=== PATIENT | male | born 1950 | race Caucasian/White ===

== ENCOUNTER → 2020-03-21 09:56 | Outpatient (BNVA) | payer MEDICARE, SELFPAY | PROVIDERS: Referring Provider Nurse Practitioner Family; Visit Provider Physician Assistant | DX: R14.0 Abdominal distension (gaseous) (principal) | CPT/HCPCS: 99203 ==

== ENCOUNTER 2020-04-02 16:55 | Inpatient (IN) | payer MEDICARE, SELFPAY ==
--- NOTE | 2020-04-02 17:26 | ECG_ITS ---
Test Reason : CRISIS Blood Pressure : / mmHG Vent. Rate : 084 BPM Atrial Rate : 084 BPM P-R Int : 158 ms QRS Dur : 102 ms QT Int : 354 ms P-R-T Axes : 021 -49 008 degrees QTc Int : 418 ms Normal sinus rhythm Incomplete right bundle branch block Left anterior fascicular block Minimal voltage criteria for LVH, may be normal variant Abnormal ECG When compared with ECG of 19-OCT-2019 16:10, No significant changes seen Referred By: Constantin Landers Electronically Signed By:DANIELLE BANUELOS MD
[2020-04-02 17:43] VITALS: BP 127/88; PULSE 69; RESP 18; TEMP 36.3; O2SAT 97; BMI 27.0
[2020-04-02 18:25] VITALS: BP 127/88; PULSE 69; RESP 18; TEMP 36.3; O2SAT 97
--- NOTE | 2020-04-02 18:36 | ED_ITS ---
HPI - Psych General Chief Complaint: Psychiatric Symptoms Stated Complaint: section 12 Time Seen by Provider: 04/02/20 17:26 Source: EMS Mode of arrival: EMS Limitations: no limitations History of Present Illness HPI Narrative: 69-year-old male with history of arthritis presenting via EMS from home where family had call patient for expressing suicidal/homicidal ideations where PD was called and patient was sectioned to the emergency room. He openly admits to having thoughts of suicidal and homicidal ideation. States he wants to commit murder suicide because his sister is very ?annoying? complaint: suicidal ideation and feels depressed Onset (ago): day(s) Duration: constant History of same: Yes Relieving factors: none Associated psychiatric symptoms: suicidal ideation and homicidal ideation Associated symptoms: denies other symptoms Treatments prior to arrival: none Related Data Previous Rx's Medication Instructions Recorded bisacodyl 5 mg tablet,delayed 5 mg PO ONCE #4 tab 03/21/20 release simethicone 125 mg chewable tablet 125 mg PO TID-QID PRN #90 tab 03/21/20 Allergies Allergy/AdvReac Type Severity Reaction Status Date / Time No Known Allergies Allergy Verified 04/02/20 20:21 [No Known Allergies*] Review of Systems Review of Systems: Constitutional: No Weight loss, No Fever, No Chills, No Night Sweats, No Fatigue, No Malaise ENT/Mouth: No Hearing loss, No Ear Pain, No Nasal Congestion, No Sinus Pain, No Hoarseness, No sore throat, No Rhinorrhea, No Swallowing Difficulty Eyes: No Eye Pain, No Swelling, No Redness, No Foreign Body, No Discharge, No Vision Changes Cardiovascular: No Chest Pain, No SOB, No Dyspnea on Exertion, No Orthopnea, No Edema, No Palpitations Respiratory: No Cough, No Sputum, No Wheezing, No Smoke Exposure, No Dyspnea Gastrointestinal: No Nausea, No Vomiting, No Diarrhea, No Constipation, No abdominal Pain, No Hematochezia, No Melena Genitourinary: No Dysuria, No Urinary Frequency, No Hematuria, No Urinary Incontinence, No Urgency, No Flank Pain, No Urinary Flow Changes, No Hesitancy Musculoskeletal: No joint pain, No Myalgias, No Joint Swelling Skin: No Skin Lesions, No rash Neuro: No Weakness, No Numbness, No Paresthesias, No Loss of Consciousness, No Dizziness, No Headache Psych: No Anxiety/Panic, No Depression, No SI/HI/AH/VH, No Social Issues, Heme/Lymph: No Bruising, No Bleeding,No Lymphadenopathy Endocrine: No Polyuria, No Polydipsia, No Temperature Intolerance Yes all other systems are reviewed and are negative [facility] Past Medical History Attestation statement: The following information was validated with the patient. Surgical History History of amputation of finger of right hand Family History Family History Mother Heart disease Father Hx of colostomy Social History Social History Alcohol intake: former Smoking Status: Former smoker Smoked in Last 30 Days: No Use of substances other than those prescribed or required for medical reasons: No Any prior treatment program specific to substance use: No Advance Directives: No Advance Directives Information Provided: No Physical Exam Vital Signs: Vital Signs: Vital Signs Temp Pulse Resp BP Pulse Ox 04/02/20 20:00 18 04/02/20 18:25 97.3 F 69 18 127/88 97 04/02/20 17:43 97.3 F 69 18 127/88 97 Body Mass Index 27.0 Course Course Course Narrative: Care team at bedside for evaluation would like to consult his manager social services through [facility] recommendation for re-evaluate in the morning by Care Team. At this time will sign out pending re-evaluation. Anticipate the gentleman to be inpatient level care. Reevaluation(s) Reevaluation #1: Notes were reviewed from his admission here in 10/08/2019- MDM - Psych MDM Narrative Medical decision making narrative: Offers no medical complaints. Will need labs for medical screening and psychiatric evaluation. Differential Diagnosis Differential diagnosis: Likely acute psychosis, homicidal ideation, suicidal ideation, bipolar disorder, depression, acute anxiety and mood disorder Restraints Face to Face Assessment: Face to Face Assessment: Current Situation: After assessment of the patient, a review of the pertinent medical record and a discussion with nursing staff, I feel the patient requires a restrain int ervention. Reaction To: [] Medical Condition: [] Behavioral State: [] Continued Need: [] Lab Data Result diagrams: 04/02/20 18:46 10/13/20 18:46 Labs: Lab Results 04/02/20 04/02/20 04/02/20 Range/Units 18:46 18:46 18:46 WBC 7.0 (4.8-10.8) X10*3/uL RBC 4.49 L (4.60-5.80) X10*6/uL Hgb 14.1 (14.0-18.0) g/dl Hct 40.8 L (42-52) % MCV 90.9 (80-98) fL MCH 31.4 (27.0-33.0) pg MCHC 34.6 (31.0-36.0) g/dl RDW 11.9 (11.0-16.0) % Plt Count 161 (160-400) X10*3/uL MPV 9.9 (9.4-12.4) fL Immature Gran % (Auto) 0.3 (0.0-0.4) % Neut % (Auto) 67.1 (45-73) % Lymph % (Auto) 20.1 (20-40) % [place] % (Auto) 10.4 (2-11) % Eos % (Auto) 1.8 (0-4) % Baso % (Auto) 0.3 (0-2) % Lymph # (Auto) 1.4 (1.2-4.9) X10*3/uL [place] # (Auto) 0.7 (0.1-1.2) X10*3/uL Eos # (Auto) 0.1 (0.0-0.4) X10*3/uL Baso # (Auto) 0.0 (0.0-0.2) X10*3/uL Abs Immat Gran (auto) 0.02 (0.00-0.03) X10*3/uL Absolute Neuts (auto) 4.7 (2.0-8.3) X10*3/uL Absolute Nucleated RBC 0.000 (0.0-0.012) X10*3/uL Nucleated RBC % (auto) 0.0 (0.0-0.2) /100WBC Sodium 136 (135-145) mmol/L Potassium 3.9 (3.3-5.1) mmol/l Chloride 103 (96-108) mmol/L Carbon Dioxide 25 (22-29) mmol/L Anion Gap 12 (12-20) BUN 18 H (9-16) mg/dL Creatinine 0.85 (0.5-1.4) mg/dL Estim Creat Clear Calc 79.3 Estimated GFR > 60 Random Glucose 154 H (60-115) mg/dL Calcium 8.7 (8.4-10.2) mg/dL Total Bilirubin 0.5 (0.0-1.0) mg/dL Direct Bilirubin < 0.2 (0.0-0.5) mg/dL AST 15 (5-37) U/L ALT 10 (0-40) U/L Alkaline Phosphatase 55 (39-117) U/L Total Protein 6.5 (6.5-8.0) g/dL Albumin 4.0 (3.5-5.0) g/dL Lipase 31 (8-78) U/L Urine Color Urine Appearance Urine pH (5.0-8.0) Ur Specific [place] (1.005-1.025) Urine Protein (NEG-TRACE) MG/DL Urine Glucose (UA) (NEG) MG/DL Urine Ketones (NEG) MG/DL Urine Blood (NEG) Urine Nitrite (NEG) Ur Leukocyte Esterase (NEG) Urine RBC (0) /HPF Urine WBC (0-4) /HPF Ur Squamous Epith Cells /LPF Urine Bacteria /LPF Urine Opiates Screen (Not Detect) Ur Barbiturates Screen (Not Detect) Ur Phencyclidine Scrn (Not Detect) Ur Amphetamines Screen (Not Detect) U Benzodiazepines Scrn (Not Detect) Urine Cocaine Screen (Not Detect) U Marijuana (THC) Screen (Not Detect) Ethyl Alcohol < 10 mg/dL 04/02/20 04/02/20 Range/Units 18:47 18:47 WBC (4.8-10.8) X10*3/uL RBC (4.60-5.80) X10*6/uL Hgb (14.0-18.0) g/dl Hct (42-52) % MCV (80-98) fL MCH (27.0-33.0) pg MCHC (31.0-36.0) g/dl RDW (11.0-16.0) % Plt Count (160-400) X10*3/uL MPV (9.4-12.4) fL Immature Gran % (Auto) (0.0-0.4) % Neut % (Auto) (45-73) % Lymph % (Auto) (20-40) % [place] % (Auto) (2-11) % Eos % (Auto) (0-4) % Baso % (Auto) (0-2) % Lymph # (Auto) (1.2-4.9) X10*3/uL [place] # (Auto) (0.1-1.2) X10*3/uL Eos # (Auto) (0.0-0.4) X10*3/uL Baso # (Auto) (0.0-0.2) X10*3/uL Abs Immat Gran (auto) (0.00-0.03) X10*3/uL Absolute Neuts (auto) (2.0-8.3) X10*3/uL Absolute Nucleated RBC (0.0-0.012) X10*3/uL Nucleated RBC % (auto) (0.0-0.2) /100WBC Sodium (135-145) mmol/L Potassium (3.3-5.1) mmol/l Chloride (96-108) mmol/L Carbon Dioxide (22-29) mmol/L Anion Gap (12-20) BUN (9-16) mg/dL Creatinine (0.5-1.4) mg/dL Estim Creat Clear Calc Estimated GFR Random Glucose (60-115) mg/dL Calcium (8.4-10.2) mg/dL Total Bilirubin (0.0-1.0) mg/dL Direct Bilirubin (0.0-0.5) mg/dL AST (5-37) U/L ALT (0-40) U/L Alkaline Phosphatase (39-117) U/L Total Protein (6.5-8.0) g/dL Albumin (3.5-5.0) g/dL Lipase (8-78) U/L Urine Color YELLOW Urine Appearance CLEAR Urine pH 6.0 (5.0-8.0) Ur Specific [place] 1.025 (1.005-1.025) Urine Protein NEG (NEG-TRACE) MG/DL Urine Glucose (UA) NEG (NEG) MG/DL Urine Ketones NEG (NEG) MG/DL Urine Blood NEG (NEG) Urine Nitrite NEG (NEG) Ur Leukocyte Esterase NEG (NEG) Urine RBC 0-2 (0) /HPF Urine WBC 0 (0-4) /HPF Ur Squamous Epith Cells NONE /LPF Urine Bacteria NONE /LPF Urine Opiates Screen Not Detected (Not Detect) Ur Barbiturates Screen Not Detected (Not Detect) Ur Phencyclidine Scrn Not Detected (Not Detect) Ur Amphetamines Screen Not Detected (Not Detect) U Benzodiazepines Scrn Not Detected (Not Detect) Urine Cocaine Screen Not Detected (Not Detect) U Marijuana (THC) Screen Not Detected (Not Detect) Ethyl Alcohol mg/dL Discharge Plan Discharge Prescriptions: No Action bisacodyl [Dulcolax (bisacodyl)] 5 mg tablet,delayed release (DR/EC) 5 mg PO ONCE Qty: 4 RF: 0 simethicone [Gas Relief (simethicone)] 125 mg tablet,chewable 125 mg PO TID-QID PRN (Reason: abdominal distention) Qty: 90 RF: 2
[2020-04-02 18:59] LABS: MANUAL DIFF FLAG NO
[2020-04-02 19:01] LABS: Basophils Percent Auto 0.3 % (0-2); Eosinophils Absolute Auto 0.1 X10*3/uL (0.0-0.4); Eosinophils Percent Auto 1.8 % (0-4); Hematocrit 40.8 % (42-52); Hemoglobin 14.1 g/dl (14.0-18.0); Imm Gran Abs Auto 0.02 X10*3/uL (0.00-0.03); Imm Gran Pct Auto 0.3 % (0.0-0.4); Lymphocytes Absolute Auto 1.4 X10*3/uL (1.2-4.9); Lymphocytes Percent Auto 20.1 % (20-40); Mean Corpuscular HGB Conc 34.6 g/dl (31.0-36.0); Mean Corpuscular Hemoglobin 31.4 pg (27.0-33.0); Mean Corpuscular Volume 90.9 fL (80-98); Mean Platelet Volume 9.9 fL (9.4-12.4); Monocytes Absolute Auto 0.7 X10*3/uL (0.1-1.2); Monocytes Percent Auto 10.4 % (2-11); Neutrophils Absolute Auto 4.7 X10*3/uL (2.0-8.3); Neutrophils Percent Auto 67.1 % (45-73); Platelet Count 161 X10*3/uL (160-400); Red Blood Count 4.49 X10*6/uL (4.60-5.80); Red Cell Distribution Width 11.9 % (11.0-16.0)
[2020-04-02 19:18] LABS: Ethanol < 10 mg/dL
[2020-04-02 19:23] LABS: Alanine Aminotransferase 10 U/L (0-40); Alkaline Phosphatase 55 U/L (39-117); Anion Gap 12 (12-20); Aspartate Amino Transferase 15 U/L (5-37); Bilirubin Direct < 0.2 mg/dL (0.0-0.5); Bilirubin Total 0.5 mg/dL (0.0-1.0); Blood Urea Nitrogen 18 mg/dL (9-16); Calcium 8.7 mg/dL (8.4-10.2); Carbon Dioxide 25 mmol/L (22-29); Chloride 103 mmol/L (96-108); Creatinine Clr Calc Pharmacy 79.3; Estimated Glomerular Filt Rate > 60; Glucose Random 154 mg/dL (60-115); Lipase 31 U/L (8-78); Potassium 3.9 mmol/l (3.3-5.1); Sodium 136 mmol/L (135-145); Total Protein 6.5 g/dL (6.5-8.0)
[2020-04-02 19:28] LABS: Glucose Urine UA NEG (NEG); Leukocyte Esterase Urine NEG (NEG); Nitrite Urine NEG (NEG); Specific Gravity - Urine 1.025 (1.005-1.025); Urine Blood NEG (NEG); Urine Ketones NEG (NEG); Urine Protein NEG (NEG-TRACE)
[2020-04-02 19:30] LABS: Appearance Urine CLEAR; Color Urine YELLOW
[2020-04-02 19:33] LABS: Amphetamine Screen Urine Not Detected (Not Detect); Barbiturates, Urine Not Detected (Not Detect); Benzodiazepines Screen Urine Not Detected (Not Detect); Cannabinoid Screen Urine Not Detected (Not Detect); Cocaine Screen Urine Not Detected (Not Detect); Opiate Screen Urine Not Detected (Not Detect); Phencyclidine Screen Urine Not Detected (Not Detect)
[2020-04-02 20:00] VITALS: RESP 18
[2020-04-02 20:36] LABS: RBC Urine 0-2 /HPF (0); WBC Urine 0 /HPF (0-4)
[2020-04-02 22:00] VITALS: BP 138/80; PULSE 83; RESP 18; TEMP 36.7; O2SAT 95
[2020-04-02 23:43] VITALS: RESP 18
--- NOTE | 2020-04-03 00:37 | MHC.CARE ---
FYI 23:45 CARE team assessment is the completed documented
[2020-04-03 03:33] VITALS: RESP 18
--- NOTE | 2020-04-03 07:03 | PC.NURSE ---
Report received. PT is sleeping in his room. Breathing is even and unlabored. To be reassessed this morning.
[2020-04-03 08:49] VITALS: BP 124/66; PULSE 100; RESP 16; TEMP 36.3; O2SAT 98
--- NOTE | 2020-04-03 09:11 | PC.NURSE ---
PT is resting in bed. Calm and cooperative. No other complaints.
--- NOTE | 2020-04-03 11:11 | PC.NURSE ---
PT is resting in bed. Calm and cooperative. No other complaints.
[2020-04-03 12:17] VITALS: BP 134/84; PULSE 92; RESP 17; TEMP 36.1; O2SAT 97
--- NOTE | 2020-04-03 13:26 | PC.NURSE ---
PT is sitting in the common area watching TV. Calm and cooperative. No other complaints.
--- NOTE | 2020-04-03 15:18 | PC.NURSE ---
PT is sitting in the common room watching TV. Calm and cooperative. No other complaints.
--- NOTE | 2020-04-03 17:05 | PC.NURSE ---
PT is sitting in the common area watching TV. Calm and cooperative. No other complaints.
[2020-04-03 20:04] VITALS: BP 112/67; PULSE 113; RESP 18; TEMP 38.6; O2SAT 97
[2020-04-03] MEDS: Acetaminophen 325 MG TABLET 650 MG PO (20:08)
[2020-04-03 22:30] VITALS: TEMP 37.4
[2020-04-03 22:38] LABS: SARS COV2 PCR INHOUSE NEGATIVE (Negative)
--- NOTE | 2020-04-04 00:06 | MHC.PIE ---
P: Temp 101.4 orally at 1999. I: made aware. Rapid COVID testing done. Tylenol 650 mg PO given at 2007. E: Negative covid testing. T:99.4 orally. Will continue to monitor.
[2020-04-04 06:45] VITALS: BP 104/66; PULSE 97; RESP 17; TEMP 36.4; O2SAT 96
--- NOTE | 2020-04-04 07:10 | PC.NURSE ---
RECEIVED REPORT FROM CASEY FRIEND. PT SLEEPING ON BED IN POSITION OF COMFORT. SKIN WPD. RESPIRATIONS EVEN AND NON LABORED.
--- NOTE | 2020-04-04 07:26 | PC.NURSE ---
UNABLE TO [facility] SPOKE WITH DONG FROM [facility] ([facility]) AND SHE CONFIRMED A RAPID COVID WAS RESULTED YESTERDAY AT 2012, RESULTS NEGATIVE.
[2020-04-04 07:31] VITALS: BP 117/78; PULSE 99; RESP 18; TEMP 36.9; O2SAT 96
--- NOTE | 2020-04-04 08:32 | MHC.CARE ---
Documentation Clarification: Pt is a bedsearch through [facility].
[2020-04-04 09:10] VITALS: BP 113/74; PULSE 99; RESP 18; TEMP 36.7; O2SAT 97
--- NOTE | 2020-04-04 09:12 | XR_ITS ---
EXAMINATION: XR CHEST CLINICAL INFORMATION: Fever COMPARISON: October 19, 2019 and October 05, 2019 as well as studies dating back to December 04, 2016 TECHNIQUE: 2 views of the chest were obtained. FINDINGS: There is no evidence of acute parenchymal disease, pneumothorax, or pleural effusion. Heart normal size. No evidence of pulmonary edema. There is calcification of the anterior longitudinal ligament. There has been resolution of previously noted right lung disease. IMPRESSION: No acute disease.
[2020-04-04 14:47] VITALS: BP 105/71; PULSE 80; RESP 16; TEMP 37.2; O2SAT 98
--- NOTE | 2020-04-04 16:00 | PC.NURSE ---
Report received from Raisa PEÑA. Report to M5 already given by Raisa. Awaiting admit and transfer orders at this time.
[2020-04-04 16:20] LABS: SARS COV2 PCR INHOUSE NEGATIVE (Negative)
[2020-04-04 18:00] VITALS: BP 124/71; PULSE 71; TEMP 37.1
--- NOTE | 2020-04-04 20:27 | PC.ADMIT ---
pt arrived on M5 unit at 1630 from [facility] ED. PT is a 69 year old single white Latvian speaking male who is unknown to . PT is on a cv status and is covid -. PT called for crisis evaluation by [facility] due to patient making statements about murdering his sister and then killing himself. pT has no providers and is not taking any medications. PT lives with sister, and is struggling with confusion/memory loss. Pt is a threat to himself and others. PT reported having a hard time with reading comprehension and struggled to answer questions about his current situation. PT does not have any outpt services in the community. PT reported having arthritis all over his body, struggled to answer if he had any AH,VH,SI. DR. Juan Antonio Garcia called for orders and notified on admission.
[2020-04-05 06:07] VITALS: BP 117/61; PULSE 98; RESP 16; TEMP 36.1; O2SAT 96
[2020-04-05 09:05] LABS: Alanine Aminotransferase 12 U/L (0-40); Albumin Level 4.1 g/dL (3.5-5.0); Alkaline Phosphatase 54 U/L (39-117); Anion Gap 10 (12-20); Aspartate Amino Transferase 15 U/L (5-37); Bilirubin Total 0.6 mg/dL (0.0-1.0); Blood Urea Nitrogen 12 mg/dL (9-16); Calcium 8.9 mg/dL (8.4-10.2); Carbon Dioxide 27 mmol/L (22-29); Chloride 107 mmol/L (96-108); Cholesterol 191 mg/dL; Creatinine Clr Calc Pharmacy 86.4; Estimated Glomerular Filt Rate > 60; Glucose Fasting 121 mg/dL (60-99); HDL Cholesterol 41 mg/dL; LDL Cholesterol Calculated 134 mg/dl; Potassium 4.3 mmol/l (3.3-5.1); Sodium 140 mmol/L (135-145); Total Protein 6.8 g/dL (6.5-8.0); Triglycerides 83 mg/dL
[2020-04-05 09:44] LABS: Reflex LDLD? No
[2020-04-05 10:07] LABS: Folate 11.8 ng/mL (> or = 4.0); Vitamin B12 399 pg/mL (200-900)
--- NOTE | 2020-04-05 10:15 | HO.PSYADMNOT ---
HPI Chief Complaint: depression si hi Sources of Information: patient interviewed, chart reviewed and crisis/core team assessment reviewed HPI Narrative: the patient is a 69-year-old male referred initially for crisis evaluation by [facility] due to the patient reportedly making statements about murdering his sister and then killing himself. The patient reportedly has some dementia has had difficulty managing his home his finances and his sister reportedly has more significant dementia than he does. There is no reported history of psychiatric care. The patient reportedly had recently been agitated at [employer] and was cited for disturbing the peace and banned from [employer]. There is no reported history of violence. Patient's PCP is Dr. 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 [phone] extension [phone] [facility] Surgical History History of amputation of finger of right hand Family History: dementia Social History: patient worked for much of his life he has to work for [employer] in the [employer] admit department. He has never has no children he has been living with his sister his whole life Substance History: no alcohol or substance abuse Trauma History: none noted Diagnostics Vital Signs (24Hr): Vital Signs - 24 hr 04/05/20 06:07 04/05/20 17:52 Temperature 97 F 98.3 F Pulse Rate 98 118 H Respiratory Rate 16 Blood Pressure 117/61 162/79 H Pulse Oximetry 96 Body Mass Index 27.0 Labs Results: 04/02/20 18:46 04/05/20 07:59 Labs: Laboratory Results - last 48 hr 04/03/20 04/05/20 04/05/20 20:20 07:59 07:59 Sodium 140 Potassium 4.3 Chloride 107 Carbon Dioxide 27 Anion Gap 10 L BUN 12 Creatinine 0.78 Estim Creat Clear Calc 86.4 Estimated GFR > 60 Fasting Glucose 121 H Calcium 8.9 Total Bilirubin 0.6 AST 15 ALT 12 Alkaline Phosphatase 54 Total Protein 6.8 Albumin 4.1 Triglycerides 83 Cholesterol 191 LDL Cholesterol, Calc 134 HDL Cholesterol 41 Vitamin B12 399 Folate 11.8 TSH 2.50 Coronavirus (PCR) NEGATIVE Meds/Allergies Meds Home Medications Medication Instructions Recorded Confirmed Type No Known Home Meds 04/02/20 04/02/20 History Allergies Allergies Allergy/AdvReac Type Severity Reaction Status Date / Time No Known Allergies Allergy Verified 04/02/20 20:21 [No Known Allergies*] Mental Status Exam Mental Status Exam Narrative: patient somewhat disheveled he is bright in interaction. He states he is feeling overwhelmed with managing his life at times can wish he were he denies feeling that way at this time his mood was anxious had a full affect he was not psychotic he knew he was in the hospital and he knew use in the hospital because he had made statements about harming his sister hand himself patient is agreeable to inpatient psychiatric treatment and help for his mood and impulsivity patient did well on serial sevens attention and acute short-term memory were relatively intact executive functioning reasoning poor patient could not really explain his financial situation what was going on at home Patient Appearance: Disheveled Patient Orientation: Person and Place Level of Consciousness: Awake Patient Behavior: Appropriate Assessment & Plan Assessment & Plan (1) Depression: Status: Acute Code(s): F32.9 - Major depressive disorder, single episode, unspecified (2) Cognitive impairment: Status: Acute Code(s): R41.89 - Other symptoms and signs involving cognitive functions and awareness (3) Atypical depressive disorder: Status: Acute Code(s): F32.89 - Other specified depressive episodes Assessment and Plan: patient not typical for Alzheimer dementia. Seems to have more problems with executive function impulsivity and problems adapting to his current life situation and losing his house and his freedom inability to manage his finances. Patient is agreeable to psychiatric evaluation treatment. Reportedly there may be a guardian unclear if limited guardian would try low-dose SSRI consider Depakote consider Aricept Namenda. Brain MRI labs unremarkable some mild elevation of LDL B12 folate within normal limits check imaging check RPR patient ambulation OK no obvious focal findings Patient educated on: diagnosis, medication risk/benefits and medical condition Informed Consent: further education needed
--- NOTE | 2020-04-05 16:00 | PC.NURSE ---
Pt participated in [facility] screen ( 7.1 version) on this date, scored 18/30 indicating cognition is below normal limits and is indicative of Dementia. Pt and MD aware of results.
[2020-04-05 17:52] VITALS: BP 162/79; PULSE 118; TEMP 36.8
[2020-04-06 06:20] VITALS: BP 121/67; PULSE 88; RESP 18; TEMP 36.6
[2020-04-06 16:44] VITALS: BP 122/87; PULSE 114; TEMP 37.1
--- NOTE | 2020-04-06 21:44 | P.PNPSI_ITS ---
Subjective Subjective Reason For Visit: depression si hi Subjective Notes: Conditional Voluntary Interim History: Pt superficially pleasant in this setting mood anxiety not overly depressed in this setting cooperative denies si hi in this setting Medication Compliance: Yes Side effects from medications: No Attending Groups: Intermittent Mental Status Exam Mental Status Exam Narrative: patient somewhat disheveled he is bright in interaction. He states he is feeling overwhelmed with managing his life at times can wish he were he denies feeling that way at this time his mood was anxious had a full affect h e was not psychotic he knew he was in the hospital and he knew use in the hospital because he had made statements about harming his sister hand himself patient is agreeable to inpatient psychiatric treatment and help for his mood and impulsivity patient did well on serial sevens attention and acute short-term memory were relatively intact executive functioning reasoning poor patient could not really explain his financial situation what was going on at home Patient Appearance: Disheveled Patient Orientation: Person and Place Level of Consciousness: Awake Patient Behavior: Appropriate Diagnostics Vital Signs (24Hr): Vital Signs - 24 hr 04/06/20 06:20 04/06/20 16:44 Temperature 97.9 F 98.7 F Pulse Rate 88 114 H Respiratory Rate 18 Blood Pressure 121/67 122/87 Body Mass Index 27.0 Labs Results: 04/02/20 18:46 04/05/20 07:59 Labs: Laboratory Results - last 48 hr 04/05/20 04/05/20 07:59 07:59 Sodium 140 Potassium 4.3 Chloride 107 Carbon Dioxide 27 Anion Gap 10 L BUN 12 Creatinine 0.78 Estim Creat Clear Calc 86.4 Estimated GFR > 60 Fasting Glucose 121 H Calcium 8.9 Total Bilirubin 0.6 AST 15 ALT 12 Alkaline Phosphatase 54 Total Protein 6.8 Albumin 4.1 Triglycerides 83 Cholesterol 191 LDL Cholesterol, Calc 134 HDL Cholesterol 41 Vitamin B12 399 Folate 11.8 TSH 2.50 Medications Medications Current Medications Generic Name Dose Route Start Last Admin Trade Name Freq PRN Reason Stop Dose Admin Acetaminophen 650 mg 04/04/20 21:36 Acetaminophen 325 Mg Tablet PO Q6H PRN Headache/Pain Mild Scale (1-3) Al Hydroxide/Mg Hydroxide 30 ml 04/04/20 21:36 Magnesium Hydrox/Alum Hydrox 30 Ml Oral.Susp PO Q6H PRN Heartburn/Nausea Hydroxyzine HCl 25 mg 04/04/20 21:36 Hydroxyzine Hcl 25 Mg Tablet PO BEDTIME PRN Anxiety Magnesium Hydroxide 30 ml 04/04/20 21:36 Milk Of Magnesia 30 Ml Oral.Susp PO DAILY PRN Constipation Trazodone HCl 50 mg 04/04/20 21:36 Trazodone Hcl 50 Mg Tablet PO BEDTIME PRN Insomnia Allergies Allergies Allergy/AdvReac Type Severity Reaction Status Date / Time No Known Allergies Allergy Verified 04/02/20 20:21 [No Known Allergies*] Assessment & Plan Assessment & Plan (1) Depression: Status: Acute Code(s): F32.9 - Major depressive disorder, single episode, unspecified (2) Cognitive impairment: Status: Acute Code(s): R41.89 - Other symptoms and signs involving cognitive functions and awareness (3) Atypical depressive disorder: Status: Acute Code(s): F32.89 - Other specified depressive episodes Assessment and Plan: patient not typical for Alzheimer dementia. Seems to have more problems with executive function impulsivity and problems adapting to his current life situation and losing his house and his freedom inability to manage his finances. Patient is agreeable to psychiatric evaluation treatment. Reportedly there may be a guardian unclear if limited guardian would try low-dose SSRI consider Depakote consider Aricept Namenda. Get Brain MRI labs unremarkable some mild elevation of LDL B12 folate within normal limits check imaging check RPR patient ambulation OK no obvious focal findings Greater than 50% of the session was spent on counseling and/or coordination of care
--- NOTE | 2020-04-07 | XR_ITS ---
EXAMINATION: XR CHEST CLINICAL INFORMATION: Shortness of breath with recent pneumonia COMPARISON: April 04, 2020 TECHNIQUE: 2 views of the chest were obtained. FINDINGS: There is no evidence of acute parenchymal disease, pneumothorax, or pleural effusion. Heart normal size. No evidence of pulmonary edema. Multilevel degenerative disc disease is present. 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 IMPRESSION: No acute disease.
[2020-04-07 06:00] VITALS: BP 112/75; PULSE 97; RESP 18; TEMP 36.4
--- NOTE | 2020-04-07 11:39 | HO.PSYCHPN ---
Subjective Subjective Reason For Visit: depression si hi Subjective Notes: Conditional Voluntary Interim History: the patient describes a history of school difficulty. He worked at [employer] for many years he has been having a hard time managing his home can get irritable agitated has been cooperative in the hospital alert and social with agreeable to neurological workup agreeable to starting low-dose Lexapro MRI Medication Compliance: Yes Attending Groups: Intermittent Mental Status Exam Mental Status Exam Narrative: patient somewhat disheveled he is bright in interaction. He states he is feeling overwhelmed with managing his life at times can wish he were he denies feeling that way at this time his mood was anxious had a full affect he was not psychotic he knew he was in the hospital and he knew use in the hospital because he had made statements about harming his sister hand himself patient is agreeable to inpatient psychiatric treatment and help for his mood and impulsivity patient did well on serial sevens attention and acute short-term memory were relatively intact executive functioning reasoning poor patient could not really explain his financial situation what was going on at home on exam knows who pen computer towel he knows his birthday to home at rest year month rambling when describing situational issues patient denies wanting to harm himself or his sister per becomes overwhelmed when dealing with his sister Patient Appearance: Disheveled Patient Orientation: Person and Place Level of Consciousness: Awake Patient Behavior: Appropriate Mood Description: Anxious and Apprehensive Affect Description: Calm, Anxious and Apprehensive Speech Pattern: Clear Thought Process: Rumination Thought Content: positive for [place] Depressive Symptoms: Increased Anxiety, Diff. Making Decisions and Increased Irritability Judgement: Fair Diagnostics Vital Signs (24Hr): Vital Signs - 24 hr 04/06/20 16:44 04/07/20 06:00 Temperature 98.7 F 97.6 F Pulse Rate 114 H 97 Respiratory Rate 18 Blood Pressure 122/87 112/75 Body Mass Index 27.0 Labs Results: 04/02/20 18:46 04/05/20 07:59 Medications Medications Current Medications Generic Name Dose Route Start Last Admin Trade Name Freq PRN Reason Stop Dose Admin Acetaminophen 650 mg 04/04/20 21:36 Acetaminophen 325 Mg Tablet PO Q6H PRN Headache/Pain Mild Scale (1-3) Al Hydroxide/Mg Hydroxide 30 ml 04/04/20 21:36 Magnesium Hydrox/Alum Hydrox 30 Ml Oral.Susp PO Q6H PRN Heartburn/Nausea Escitalopram Oxalate 5 mg 04/08/20 09:00 Escitalopram Oxalate 5 Mg Tablet PO DAILY HASMUKH Hydroxyzine HCl 25 mg 04/04/20 21:36 Hydroxyzine Hcl 25 Mg Tablet PO BEDTIME PRN Anxiety Magnesium Hydroxide 30 ml 04/04/20 21:36 Milk Of Magnesia 30 Ml Oral.Susp PO DAILY PRN Constipation Trazodone HCl 50 mg 04/04/20 21:36 Trazodone Hcl 50 Mg Tablet PO BEDTIME PRN Insomnia Allergies Allergies Allergy/AdvReac Type Severity Reaction Status Date / Time No Known Allergies Allergy Verified 04/02/20 20:21 [No Known Allergies*] Assessment & Plan Assessment & Plan (1) Atypical depressive disorder: Status: Acute Code(s): F32.89 - Other specified depressive episodes (2) Cognitive impairment: Status: Acute Code(s): R41.89 - Other symptoms and signs involving cognitive functions and awareness Assessment and Plan: Lexapro 5 mg monitor for agitation brain MRI the patient seems to have more problems with executive functioning becomes overwhelmed and then reactive to his sister his sister appears to have more significant dementia reportedly patient was working at [employer] up until few months ago try and get additional history from PCP 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
[2020-04-07] MEDS: Escitalopram Oxalate 5 MG TABLET PO (13:17)
[2020-04-07 13:38] LABS: Estimated Average Glucose 126 mg/dL
[2020-04-07 20:00] VITALS: BP 137/89; PULSE 89; TEMP 36.6
--- NOTE | 2020-04-08 | MR_ITS ---
MRI OF THE BRAIN WITHOUT IV CONTRAST INDICATION: Aggressive behavior. Worsening memory and reasoning. COMPARISON: Head CT 10/05/2019. TECHNIQUE: Multiplanar multisequence MR imaging of the brain was obtained without IV contrast. FINDINGS: There is no hydrocephalus, extra-axial surface collection, or herniation. There is mild chronic microangiopathy. Chronic lacunar infarct within the left cerebellum. The major flow voids at the skull base are preserved. Artifact versus a punctate acute lacunar infarct within the left dorsal medulla on image 9 of series 3. There is no intracranial hemorrhage on the gradient recalled echo acquisition. The midline structures are normal. The cerebellar tonsils are normally positioned. The craniocervical junction is normal. Osseous marrow signal intensity is homogenous. The visualized soft tissues are unremarkable. IMPRESSION: - Artifact versus a punctate acute lacunar infarct within the left dorsal medulla on image 9 of series 3. - There is mild chronic microangiopathy. Chronic lacunar infarct within the left cerebellum.
[2020-04-08 04:52] LABS: Syphilis Screen Nonreactive (Nonreactive)
[2020-04-08 06:05] VITALS: BP 131/84; PULSE 88; RESP 16; TEMP 36.1; O2SAT 98
[2020-04-08] MEDS: Escitalopram Oxalate 5 MG TABLET PO (09:40)
--- NOTE | 2020-04-08 09:44 | HO.PSYCHPN ---
Subjective Subjective Reason For Visit: depression si hi Subjective Notes: Conditional Voluntary Interim History: the patient describes a history of school difficulty. He worked at [employer] for many years he has been having a hard time managing his home can get irritable agitated has been cooperative in the hospital alert and social with agreeable to neurological workup agreeable to starting low-dose Lexapro MRI Patient has been managing on the unit cooperative with testing Medication Compliance: Yes Attending Groups: Intermittent Mental Status Exam Mental Status Exam Narrative: patient somewhat disheveled he is bright in interaction. He states he is feeling overwhelmed with managing his life at times can wish he were he denies feeling that way at this time his mood was anxious had a full affect he was not psychotic he knew he was in the hospital and he knew use in the hospital because he had made statements about harming his sister hand himself patient is agreeable to inpatient psychiatric treatment and help for his mood and impulsivity patient did well on serial sevens attention and acute short-term memory were relatively intact executive functioning reasoning poor patient could not really explain his financial situation what was going on at home on exam knows who pen computer towel he knows his birthday to home at rest year month rambling when describing situational issues patient denies wanting to harm himself or his sister per becomes overwhelmed when dealing with his sister Patient Appearance: Disheveled Patient Orientation: Person and Place Level of Consciousness: Awake Patient Behavior: Appropriate Mood Description: Anxious and Apprehensive Affect Description: Calm, Anxious and Apprehensive Speech Pattern: Clear Thought Process: Rumination Thought Content: positive for [place] Depressive Symptoms: Increased Anxiety, Diff. Making Decisions and Increased Irritability Judgement: Fair Diagnostics Vital Signs (24Hr): Vital Signs - 24 hr 04/07/20 20:00 04/08/20 06:05 Temperature 97.8 F 97 F Pulse Rate 89 88 Respiratory Rate 16 Blood Pressure 137/89 131/84 Pulse Oximetry 98 Body Mass Index 27.0 Labs Results: 04/02/20 18:46 04/05/20 07:59 Labs: Laboratory Results - last 48 hr 04/07/20 04/07/20 13:21 13:21 Estimat Average Glucose 126 Hemoglobin A1c % 6.0 T.pallidum Ab (EIA) Nonreactive Medications Medications Current Medications Generic Name Dose Route Start Last Admin Trade Name Freq PRN Reason Stop Dose Admin Acetaminophen 650 mg 04/04/20 21:36 Acetaminophen 325 Mg Tablet PO Q6H PRN Headache/Pain Mild Scale (1-3) Al Hydroxide/Mg Hydroxide 30 ml 04/04/20 21:36 Magnesium Hydrox/Alum Hydrox 30 Ml Oral.Susp PO Q6H PRN Heartburn/Nausea Escitalopram Oxalate 5 mg 04/08/20 09:00 04/08/20 09:40 Escitalopram Oxalate 5 Mg Tablet PO 5 mg DAILY HASMUKH Administration Hydroxyzine HCl 25 mg 04/04/20 21:36 Hydroxyzine Hcl 25 Mg Tablet PO BEDTIME PRN Anxiety Magnesium Hydroxide 30 ml 04/04/20 21:36 Milk Of Magnesia 30 Ml Oral.Susp PO DAILY PRN Constipation Trazodone HCl 50 mg 04/04/20 21:36 Trazodone Hcl 50 Mg Tablet PO BEDTIME PRN Insomnia Allergies Allergies Allergy/AdvReac Type Severity Reaction Status Date / Time No Known Allergies Allergy Verified 04/02/20 20:21 [No Known Allergies*] Assessment & Plan Assessment & Plan (1) Atypical depressive disorder: Status: Acute Code(s): F32.89 - Other specified depressive episodes Assessment and Plan: continue Lexapro (2) Cognitive impairment: Status: Acute Code(s): R41.89 - Other symptoms and signs involving cognitive functions and awareness Assessment and Plan: looking to review neuropsych testing Greater than 50% of the session was spent on counseling and/or coordination of care
[2020-04-08] MEDS: Flu Vacc QS2020-21(6mos up)/PF 0.5 ML SYRINGE IM (17:23)
[2020-04-08 17:29] LABS: Glucose Urine UA NEG (NEG); Leukocyte Esterase Urine NEG (NEG); Nitrite Urine NEG (NEG); Specific Gravity - Urine <= 1.005 (1.005-1.025); Urine Blood NEG (NEG); Urine Ketones NEG (NEG); Urine Protein NEG (NEG-TRACE)
[2020-04-08 17:32] LABS: Appearance Urine CLEAR; Color Urine YELLOW
[2020-04-08 18:00] VITALS: BP 127/68; PULSE 99; TEMP 36.6
[2020-04-09 06:00] VITALS: BP 115/64; PULSE 86; RESP 16; TEMP 37
[2020-04-09] MEDS: Escitalopram Oxalate 5 MG TABLET PO (08:40)
--- NOTE | 2020-04-09 15:14 | P.PNPSI_ITS ---
Subjective Subjective Reason For Visit: depression si hi Interim History: patient is somewhat anxious in mild to moderately dysphoric uses superficial humor. Discussed with patient the fact that he had a guardian that there was concern about him going home. Discussed with patient use of Aricept Mental Status Exam Mental Status Exam Patient Appearance: Disheveled Patient Orientation: Person and Place Level of Consciousness: Awake Patient Behavior: Appropriate Mood Description: Anxious and Apprehensive Affect Description: Calm, Anxious and Apprehensive Speech Pattern: Clear Memory Description: Episodic Impaired and Recent Impaired Hallucinations: None Delusions: Not Present Judgement and Insight: denies self-harming thoughts denies thoughts of harming his sister Diagnostics Vital Signs (24Hr): Vital Signs - 24 hr 04/08/20 18:00 04/09/20 06:00 Temperature 97.8 F 98.6 F Pulse Rate 99 86 Respiratory Rate 16 Blood Pressure 127/68 115/64 Body Mass Index 27.0 Labs Results: 04/02/20 18:46 04/05/20 07:59 Labs: Laboratory Results - last 48 hr 04/07/20 04/08/20 13:21 16:58 Urine Color YELLOW Urine Appearance CLEAR Urine pH 7.0 Ur Specific [place] <= 1.005 Urine Protein NEG Urine Glucose (UA) NEG Urine Ketones NEG Urine Blood NEG Urine Nitrite NEG Ur Leukocyte Esterase NEG T.pallidum Ab (EIA) Nonreactive Medications Medications Current Medications Generic Name Dose Route Start Last Admin Trade Name Freq PRN Reason Stop Dose Admin Acetaminophen 650 mg 04/04/20 21:36 Acetaminophen 325 Mg Tablet PO Q6H PRN Headache/Pain Mild Scale (1-3) Al Hydroxide/Mg Hydroxide 30 ml 04/04/20 21:36 Magnesium Hydrox/Alum Hydrox 30 Ml Oral.Susp PO Q6H PRN Heartburn/Nausea Escitalopram Oxalate 5 mg 04/08/20 09:00 04/09/20 08:40 Escitalopram Oxalate 5 Mg Tablet PO 5 mg DAILY HASMUKH Administration Hydroxyzine HCl 25 mg 04/04/20 21:36 Hydroxyzine Hcl 25 Mg Tablet PO BEDTIME PRN Anxiety Magnesium Hydroxide 30 ml 04/04/20 21:36 Milk Of Magnesia 30 Ml Oral.Susp PO DAILY PRN Constipation Trazodone HCl 50 mg 04/04/20 21:36 Trazodone Hcl 50 Mg Tablet PO BEDTIME PRN Insomnia Allergies Allergies Allergy/AdvReac Type Severity Reaction Status Date / Time No Known Allergies Allergy Verified 04/02/20 20:21 [No Known Allergies*] Assessment & Plan Assessment & Plan (1) Atypical depressive disorder: Status: Acute Code(s): F32.89 - Other specified depressive episodes Assessment and Plan: continue Lexapro monitor for side effects (2) Cognitive impairment: Status: Acute Code(s): R41.89 - Other symptoms and signs involving cognitive functions and awareness Assessment and Plan: looking to review neuropsych testing MRI reviewed question lacunar infarct start Aricept 5 mg Greater than 50% of the session was spent on counseling and/or coordination of care
[2020-04-09 18:00] VITALS: BP 137/81; PULSE 89; TEMP 36.3
[2020-04-09] MEDS: Donepezil HCl 5 MG TABLET PO (21:04)
[2020-04-10 06:20] VITALS: BP 116/65; PULSE 84; RESP 18; TEMP 36.9
[2020-04-10] MEDS: Escitalopram Oxalate 5 MG TABLET PO (08:17)
--- NOTE | 2020-04-10 09:57 | HO.PSYCHPN ---
Subjective Subjective Reason For Visit: depression si hi Interim History: patient is somewhat anxious in mild to moderately dysphoric uses superficial humor. Discussed with patient the fact that he had a guardian that there was concern about him going home. Discussed with patient use of Aricept on low dose lexapro Mental Status Exam Mental Status Exam Narrative: Pt logical linear at times gets confused withdetails Patient Appearance: Disheveled Patient Orientation: Person and Place Level of Consciousness: Awake Patient Behavior: Appropriate Mood Description: Anxious and Apprehensive Affect Description: Calm, Anxious and Apprehensive Patient Cognition Impaired: Yes Speech Pattern: Clear Memory Description: Episodic Impaired and Recent Impaired Thought Content: positive for Circumstantial and positive for Goal Oriented Diagnostics Vital Signs (24Hr): Vital Signs - 24 hr 04/09/20 18:00 04/10/20 06:20 Temperature 97.4 F 98.4 F Pulse Rate 89 84 Respiratory Rate 18 Blood Pressure 137/81 116/65 Body Mass Index 27.0 Labs Results: 04/02/20 18:46 04/05/20 07:59 Labs: Laboratory Results - last 48 hr 04/08/20 16:58 Urine Color YELLOW Urine Appearance CLEAR Urine pH 7.0 Ur Specific [place] <= 1.005 Urine Protein NEG Urine Glucose (UA) NEG Urine Ketones NEG Urine Blood NEG Urine Nitrite NEG Ur Leukocyte Esterase NEG Medications Medications Current Medications Generic Name Dose Route Start Last Admin Trade Name Freq PRN Reason Stop Dose Admin Acetaminophen 650 mg 04/04/20 21:36 Acetaminophen 325 Mg Tablet PO Q6H PRN Headache/Pain Mild Scale (1-3) Al Hydroxide/Mg Hydroxide 30 ml 04/04/20 21:36 Magnesium Hydrox/Alum Hydrox 30 Ml Oral.Susp PO Q6H PRN Heartburn/Nausea Donepezil HCl 5 mg 04/09/20 21:00 04/09/20 21:04 Donepezil Hcl 5 Mg Tablet PO 5 mg BEDTIME HASMUKH Administration Escitalopram Oxalate 5 mg 04/08/20 09:00 04/10/20 08:17 Escitalopram Oxalate 5 Mg Tablet PO 5 mg DAILY HASMUKH Administration Hydroxyzine HCl 25 mg 04/04/20 21:36 Hydroxyzine Hcl 25 Mg Tablet PO BEDTIME PRN Anxiety Magnesium Hydroxide 30 ml 04/04/20 21:36 Milk Of Magnesia 30 Ml Oral.Susp PO DAILY PRN Constipation Trazodone HCl 50 mg 04/04/20 21:36 Trazodone Hcl 50 Mg Tablet PO BEDTIME PRN Insomnia Allergies Allergies Allergy/AdvReac Type Severity Reaction Status Date / Time No Known Allergies Allergy Verified 04/02/20 20:21 [No Known Allergies*] Assessment & Plan Assessment & Plan (1) Atypical depressive disorder: Status: Acute Code(s): F32.89 - Other specified depressive episodes Assessment and Plan: continue Lexapro monitor for side effects (2) Cognitive impairment: Status: Acute Code(s): R41.89 - Other symptoms and signs involving cognitive functions and awareness Assessment and Plan: looking to review neuropsych testing MRI reviewed question lacunar infarct start Aricept 5 mg Greater than 50% of the session was spent on counseling and/or coordination of care
[2020-04-10 18:00] VITALS: BP 112/65; PULSE 96; TEMP 36.3
[2020-04-10] MEDS: Donepezil HCl 5 MG TABLET PO (22:19)
[2020-04-11 05:55] VITALS: BP 123/66; PULSE 93; RESP 16; TEMP 36.3
[2020-04-11 07:00] VITALS: BMI 26.0
[2020-04-11] MEDS: Escitalopram Oxalate 5 MG TABLET PO (08:21)
[2020-04-11] MEDS: Donepezil HCl 5 MG TABLET PO (21:00)
[2020-04-11 23:16] VITALS: BP 135/84; PULSE 92; TEMP 36.4
[2020-04-12] MEDS: Escitalopram Oxalate 5 MG TABLET PO (08:39)
[2020-04-12] MEDS: Donepezil HCl 5 MG TABLET PO (20:35)
[2020-04-12 21:40] VITALS: BP 139/71; PULSE 92; RESP 16; TEMP 36.6; O2SAT 96
--- NOTE | 2020-04-12 22:17 | P.PNPSI_ITS ---
Subjective Subjective Reason For Visit: depression si hi Interim History: patient is somewhat anxious in mild to moderately dysphoric uses superficial humor. Discussed with patient the fact that he had a guardian and the plan was for him to go to assisted living or rest home.. Patient relates a history of low self-esteem difficulty managing himself and have difficulty was to try and manage the house with his sister. Also was able to speak about of his father mother. Patient appropriately processing where he is in his life seems to except need for placement tolerating Lexapro and Aricept Mental Status Exam Mental Status Exam Narrative: Pt logical linear at times gets confused withdetails Patient Appearance: Disheveled Patient Orientation: Person and Place Level of Consciousness: Awake Patient Behavior: Appropriate Mood Description: Anxious and Apprehensive Affect Description: Calm, Anxious and Apprehensive Patient Cognition Impaired: Yes Speech Pattern: Clear Memory Description: Episodic Impaired and Recent Impaired Diagnostics Vital Signs (24Hr): Vital Signs - 24 hr 04/11/20 23:16 04/12/20 05:57 Temperature 97.5 F 97.8 F Pulse Rate 92 92 Respiratory Rate 16 Blood Pressure 135/84 139/71 Pulse Oximetry 96 Body Mass Index 26.0 Labs Results: 04/02/20 18:46 04/05/20 07:59 Medications Medications Current Medications Generic Name Dose Route Start Last Admin Trade Name Rustyq PRN Reason Stop Dose Admin Acetaminophen 650 mg 04/04/20 21:36 Acetaminophen 325 Mg Tablet PO Q6H PRN Headache/Pain Mild Scale (1-3) Al Hydroxide/Mg Hydroxide 30 ml 04/04/20 21:36 Magnesium Hydrox/Alum Hydrox 30 Ml Oral.Susp PO Q6H PRN Heartburn/Nausea Donepezil HCl 5 mg 04/09/20 21:00 04/12/20 20:35 Donepezil Hcl 5 Mg Tablet PO 5 mg BEDTIME HASMUKH Administration Escitalopram Oxalate 5 mg 04/08/20 09:00 04/12/20 08:39 Escitalopram Oxalate 5 Mg Tablet PO 5 mg DAILY HASMUKH Administration Hydroxyzine HCl 25 mg 04/04/20 21:36 Hydroxyzine Hcl 25 Mg Tablet PO BEDTIME PRN Anxiety Magnesium Hydroxide 30 ml 04/04/20 21:36 Milk Of Magnesia 30 Ml Oral.Susp PO DAILY PRN Constipation Trazodone HCl 50 mg 04/04/20 21:36 Trazodone Hcl 50 Mg Tablet PO BEDTIME PRN Insomnia Allergies Allergies Allergy/AdvReac Type Severity Reaction Status Date / Time No Known Allergies Allergy Verified 04/02/20 20:21 [No Known Allergies*] Assessment & Plan Assessment & Plan (1) Atypical depressive disorder: Status: Acute Code(s): F32.89 - Other specified depressive episodes (2) Cognitive impairment: Status: Acute Code(s): R41.89 - Other symptoms and signs involving cognitive functions and awareness Assessment and Plan: continue Lexapro monitor for side effects MRI reviewed question lacunar infarct continue Aricept 5 mg Greater than 50% of the session was spent on counseling and/or coordination of care Patient educated on: diagnosis, medication risk/benefits and therapeutic s trategies Informed Consent: understands Reason for contiued inpatient stay Substantial Risk for: inability to function and rapid decompensation
[2020-04-13] MEDS: Escitalopram Oxalate 5 MG TABLET PO (09:35)
[2020-04-13 09:42] VITALS: BP 135/83; PULSE 108; TEMP 36.4; O2SAT 97
[2020-04-13 18:00] VITALS: BP 132/75; PULSE 101; TEMP 36.4
[2020-04-13] MEDS: Donepezil HCl 5 MG TABLET PO (20:15)
--- NOTE | 2020-04-13 20:35 | P.PNPSI_ITS ---
Subjective Subjective Reason For Visit: depression si hi Interim History: patient is anxious and moderately dysphoric. tolerating Lexapro and Aricept; Pulse has been high when anxious Medication Compliance: Yes Side effects from medications: No Attending Groups: Intermittent Review of Systems Review of Systems Constitutional: No Weight loss, No Fever, No Chills, No Night Sweats, No Fatigue, No Malaise ENT/Mouth: No Hearing loss, No Ear Pain, No Nasal Congestion, No Sinus Pain, No Hoarseness, No sore throat, No Rhinorrhea, No Swallowing Difficulty Eyes: No Eye Pain, No Swelling, No Redness, No Foreign Body, No Discharge, No Vision Changes Cardiovascular: tachycardia, reports no Chest Pain, No SOB, No Dyspnea on Exertion, No Orthopnea, No Edema, No Palpitations Respiratory: No Cough, No Sputum, No Wheezing, No Smoke Exposure, No Dyspnea Gastrointestinal: No Nausea, No Vomiting, No Diarrhea, No Constipation, No abdominal Pain, No Hematochezia, No Melena Genitourinary: No Dysuria, No Urinary Frequency, No Hematuria, No Urinary Incontinence, No Urgency, No Flank Pain, No Urinary Flow Changes, No Hesitancy Musculoskeletal: No joint pain, No Myalgias, No Joint Swelling Skin: No Skin Lesions, No rash Neuro: No Weakness, No Numbness, No Paresthesias, No Loss of Consciousness, No Dizziness, No Headache Psych: No Anxiety/Panic, No Depression, No SI/HI/AH/VH, No Social Issues, Heme/Lymph: No Bruising, No Bleeding,No Lymphadenopathy Endocrine: No Polyuria, No Polydipsia, No Temperature Intolerance Yes all other systems are reviewed and are negative Mental Status Exam Mental Status Exam Narrative: Pt logical linear at times gets confused withdetails Patient Appearance: Disheveled Patient Orientation: Person and Place Level of Consciousness: Awake Patient Behavior: Appropriate Mood Description: Anxious and Apprehensive Affect Description: Calm, Anxious and Apprehensive Patient Cognition Impaired: Yes Speech Pattern: Clear Memory Description: Episodic Impaired and Recent Impaired Diagnostics Vital Signs (24Hr): Vital Signs - 24 hr 04/12/20 21:40 04/13/20 09:42 04/13/20 18:00 Temperature 97.8 F 97.6 F 97.6 F Pulse Rate 92 108 H 101 H Respiratory Rate 16 Blood Pressure 139/71 135/83 132/75 Pulse Oximetry 96 97 Body Mass Index 26.0 Labs Results: 04/02/20 18:46 04/05/20 07:59 Medications Medications Current Medications Generic Name Dose Route Start Last Admin Trade Name Praveen PRN Reason Stop Dose Admin Acetaminophen 650 mg 04/04/20 21:36 Acetaminophen 325 Mg Tablet PO Q6H PRN Headache/Pain Mild Scale (1-3) Al Hydroxide/Mg Hydroxide 30 ml 04/04/20 21:36 Magnesium Hydrox/Alum Hydrox 30 Ml Oral.Susp PO Q6H PRN Heartburn/Nausea Donepezil HCl 5 mg 04/09/20 21:00 04/12/20 20:35 Donepezil Hcl 5 Mg Tablet PO 5 mg BEDTIME HASMUKH Administration Escitalopram Oxalate 5 mg 04/08/20 09:00 04/13/20 09:35 Escitalopram Oxalate 5 Mg Tablet PO 5 mg DAILY HASMUKH Administration Hydroxyzine HCl 25 mg 04/04/20 21:36 Hydroxyzine Hcl 25 Mg Tablet PO BEDTIME PRN Anxiety Magnesium Hydroxide 30 ml 04/04/20 21:36 Milk Of Magnesia 30 Ml Oral.Susp PO DAILY PRN Constipation Trazodone HCl 50 mg 04/04/20 21:36 Trazodone Hcl 50 Mg Tablet PO BEDTIME PRN Insomnia Allergies Allergies Allergy/AdvReac Type Severity Reaction Status Date / Time No Known Allergies Allergy Verified 04/02/20 20:21 [No Known Allergies*] Assessment & Plan Assessment & Plan (1) Atypical depressive disorder: Status: Acute Code(s): F32.89 - Other specified depressive episodes (2) Cognitive impairment: Status: Acute Code(s): R41.89 - Other symptoms and signs involving cognitive functions and awareness (3) Depression: Status: Acute Code(s): F32.9 - Major depressive disorder, single episode, unspecified Assessment and Plan: (1) Atypical depressive disorder: (2) Cognitive impairment: continue treatment plan continue current meds assess MSE and safety continue working on plan for d/c to rest home/assisted living continue Lexapro monitor for side effects MRI reviewed question lacunar infarct continue Aricept 5 mg Greater than 50% of the session was spent on counseling and/or coordination of care Patient educated on: diagnosis, medication risk/benefits and therapeutic s trategies Informed Consent: understands Reason for continued inpatient stay Substantial Risk for: inability to function and rapid decompensation Greater than 50% of the session was spent on counseling and/or coordination of care
[2020-04-14 07:26] VITALS: BP 126/78; PULSE 86; TEMP 36.6
[2020-04-14] MEDS: Escitalopram Oxalate 5 MG TABLET PO (08:28)
--- NOTE | 2020-04-14 10:39 | HO.PSYCHPN ---
Subjective Subjective Reason For Visit: depression si hi Interim History: patient is anxious and moderately dysphoric. tolerating Lexapro and Aricept; Pulse has been high when anxious; pulse more in normal range today. Calmer, showered and reports feeling a little better Medication Compliance: Yes Side effects from medications: No Attending Groups: Intermittent Review of Systems Review of Systems Constitutional: No Weight loss, No Fever, No Chills, No Night Sweats, No Fatigue ENT/Mouth: No Hearing loss, No Ear Pain, No Nasal Congestion, No Sinus Pain, No Hoarseness, No sore throat, No Rhinorrhea, No Swallowing Difficulty Eyes: No Eye Pain, No Swelling, No Redness,No Discharge, Cardiovascular: tachycardia when anxius, reports no Chest Pain, No SOB, No Dyspnea on Exertion, No Orthopnea, No Edema, No Palpitations Respiratory: No Cough, No Sputum, No Wheezing, No Smoke Exposure, No Dyspnea Gastrointestinal: No Nausea, No Vomiting, No Diarrhea, No Constipation, No abdominal Pain Genitourinary: No Dysuria, No Urinary Frequency, No Hematuria, No Urinary Incontinence, No Urgency, No Flank Pain, No Urinary Flow Changes, No Hesitancy Musculoskeletal: No joint pain, No Myalgias, No Joint Swelling Skin: No Skin Lesions, No rash Neuro: No Weakness, No Numbness, No Paresthesias, No Loss of Consciousness, No Dizziness, No Headache Psych: No Anxiety/Panic, No Depression, No SI/HI/AH/VH, No Social Issues, Heme/Lymph: No Bruising, No Bleeding,No Lymphadenopathy Endocrine: No Polyuria, No Polydipsia, No Temperature Intolerance Yes all other systems are reviewed and are negative Mental Status Exam Mental Status Exam Patient Appearance: Disheveled Patient Orientation: Person and Place Level of Consciousness: Awake Patient Behavior: Appropriate Mood Description: Anxious and Apprehensive Affect Description: Calm, Anxious and Apprehensive Patient Cognition Impaired: Yes Speech Pattern: Clear Memory Description: Episodic Impaired and Recent Impaired Diagnostics Vital Signs (24Hr): Vital Signs - 24 hr 04/13/20 18:00 04/14/20 07:26 Temperature 97.6 F 97.8 F Pulse Rate 101 H 86 Blood Pressure 132/75 126/78 Body Mass Index 26.0 Labs Results: 04/02/20 18:46 04/05/20 07:59 Medications Medications Current Medications Generic Name Dose Route Start Last Admin Trade Name Freq PRN Reason Stop Dose Admin Acetaminophen 650 mg 04/04/20 21:36 Acetaminophen 325 Mg Tablet PO Q6H PRN Headache/Pain Mild Scale (1-3) Al Hydroxide/Mg Hydroxide 30 ml 04/04/20 21:36 Magnesium Hydrox/Alum Hydrox 30 Ml Oral.Susp PO Q6H PRN Heartburn/Nausea Donepezil HCl 5 mg 04/09/20 21:00 04/13/20 20:15 Donepezil Hcl 5 Mg Tablet PO 5 mg BEDTIME HASMUKH Administration Escitalopram Oxalate 5 mg 04/08/20 09:00 04/14/20 08:28 Escitalopram Oxalate 5 Mg Tablet PO 5 mg DAILY HASMUKH Administration Hydroxyzine HCl 25 mg 04/04/20 21:36 Hydroxyzine Hcl 25 Mg Tablet PO BEDTIME PRN Anxiety Magnesium Hydroxide 30 ml 04/04/20 21:36 Milk Of Magnesia 30 Ml Oral.Susp PO DAILY PRN Constipation Trazodone HCl 50 mg 04/04/20 21:36 Trazodone Hcl 50 Mg Tablet PO BEDTIME PRN Insomnia Allergies Allergies Allergy/AdvReac Type Severity Reaction Status Date / Time No Known Allergies Allergy Verified 04/02/20 20:21 [No Known Allergies*] Assessment & Plan Assessment & Plan (1) Atypical depressive disorder: Status: Acute Code(s): F32.89 - Other specified depressive episodes (2) Cognitive impairment: Status: Acute Code(s): R41.89 - Other symptoms and signs involving cognitive functions and awareness (3) Depression: Status: Acute Code(s): F32.9 - Major depressive disorder, single episode, unspecified Assessment and Plan: Continue current treatment plan. Greater than 50% of the session was spent on counseling and/or coordination of care Patient educated on: diagnosis, medication risk/benefits, and medical condition Informed Consent: further education needed Reason for continued inpatient stay Substantial Risk for: inability to function and rapid decompensation Greater than 50% of the session was spent on counseling and/or coordination of care
[2020-04-14 18:00] VITALS: BP 136/86; PULSE 96; TEMP 36.7
[2020-04-14] MEDS: Donepezil HCl 5 MG TABLET PO (20:23)
[2020-04-14] MEDS: hydrOXYzine HCL 25 MG TABLET PO (21:21)
[2020-04-15 06:00] VITALS: BP 143/82; PULSE 77; RESP 18; TEMP 36.4
[2020-04-15] MEDS: Escitalopram Oxalate 5 MG TABLET PO (09:11)
[2020-04-15 18:00] VITALS: BP 131/79; PULSE 95; TEMP 36.6
--- NOTE | 2020-04-15 20:44 | HO.PSYCHPN ---
Subjective Subjective Date of Service: 04/15/20 Reason For Visit: depression si hi Subjective Notes: Conditional Voluntary Interim History: Presents with humorous defensive demeanour. Appears unkempt. patient is anxious and moderately dysphoric. tolerating Lexapro and Aricept; Pulse has been high when anxious; pulse more in normal range today. Calmer, showered and reports feeling a little better Medication Compliance: Yes Side effects from medications: No Attending Groups: Yes Review of Systems Acute medical concerns: No Medical Review of Systems: unchanged Mental Status Exam Mental Status Exam Narrative: Pt logical linear at times gets confused withdetails Patient Appearance: Disheveled Patient Orientation: Person and Place Level of Consciousness: Awake Patient Behavior: Appropriate Mood Description: Anxious and Apprehensive Affect Description: Calm, Anxious and Apprehensive Patient Cognition Impaired: Yes Speech Pattern: Clear Memory Description: Episodic Impaired and Recent Impaired Diagnostics Vital Signs (24Hr): Vital Signs - 24 hr 04/15/20 06:00 04/15/20 18:00 Temperature 97.5 F 97.8 F Pulse Rate 77 95 Respiratory Rate 18 Blood Pressure 143/82 H 131/79 Body Mass Index 26.0 Labs Results: 04/02/20 18:46 04/05/20 07:59 Medications Medications Current Medications Generic Name Dose Route Start Last Admin Trade Name Freq PRN Reason Stop Dose Admin Acetaminophen 650 mg 04/04/20 21:36 Acetaminophen 325 Mg Tablet PO Q6H PRN Headache/Pain Mild Scale (1-3) Al Hydroxide/Mg Hydroxide 30 ml 04/04/20 21:36 Magnesium Hydrox/Alum Hydrox 30 Ml Oral.Susp PO Q6H PRN Heartburn/Nausea Donepezil HCl 5 mg 04/09/20 21:00 04/14/20 20:23 Donepezil Hcl 5 Mg Tablet PO 5 mg BEDTIME HASMUKH Administration Escitalopram Oxalate 5 mg 04/08/20 09:00 04/15/20 09:11 Escitalopram Oxalate 5 Mg Tablet PO 5 mg DAILY HASMUKH Administration Hydroxyzine HCl 25 mg 04/04/20 21:36 04/14/20 21:21 Hydroxyzine Hcl 25 Mg Tablet PO 25 mg BEDTIME PRN Administration Anxiety Magnesium Hydroxide 30 ml 04/04/20 21:36 Milk Of Magnesia 30 Ml Oral.Susp PO DAILY PRN Constipation Trazodone HCl 50 mg 04/04/20 21:36 Trazodone Hcl 50 Mg Tablet PO BEDTIME PRN Insomnia Allergies Allergies Allergy/AdvReac Type Severity Reaction Status Date / Time No Known Allergies Allergy Verified 04/02/20 20:21 [No Known Allergies*] Assessment & Plan Assessment & Plan (1) Atypical depressive disorder: Status: Acute Code(s): F32.89 - Other specified depressive episodes (2) Cognitive impairment: Status: Acute Code(s): R41.89 - Other symptoms and signs involving cognitive functions and awareness (3) Depression: Status: Acute Code(s): F32.9 - Major depressive disorder, single episode, unspecified Assessment and Plan: Continue current treatment plan. Increase Aricept Greater than 50% of the session was spent on counseling and/or coordination of care Patient educated on: diagnosis, medication risk/benefits, and medical condition Informed Consent: further education needed Reason for continued inpatient stay Substantial Risk for: inability to function and rapid decompensation Greater than 50% of the session was spent on counseling and/or coordination of care
[2020-04-15] MEDS: Donepezil HCl 5 MG TABLET PO (22:11)
[2020-04-16 06:05] VITALS: BP 142/85; PULSE 99; RESP 16; TEMP 36.1; O2SAT 99
[2020-04-16] MEDS: Escitalopram Oxalate 5 MG TABLET PO (08:46)
[2020-04-16 18:00] VITALS: BP 130/70; PULSE 100; TEMP 36.3
--- NOTE | 2020-04-16 20:06 | HO.PSYCHPN ---
Subjective Subjective Reason For Visit: depression si hi Interim History: pt anxious ruminating wants to go home concerned regarding guardianship and placement Mental Status Exam Mental Status Exam Narrative: Pt logical linear at times gets confused withdetails Patient Appearance: Disheveled Patient Orientation: Person and Place Level of Consciousness: Awake Patient Behavior: Appropriate Mood Description: Anxious and Apprehensive Affect Description: Calm, Anxious and Apprehensive Patient Cognition Impaired: Yes Speech Pattern: Clear Memory Description: Episodic Impaired and Recent Impaired Diagnostics Vital Signs (24Hr): Vital Signs - 24 hr 04/16/20 06:05 Temperature 96.9 F Pulse Rate 99 Respiratory Rate 16 Blood Pressure 142/85 H Pulse Oximetry 99 Body Mass Index 26.0 Labs Results: 04/02/20 18:46 04/05/20 07:59 Medications Medications Current Medications Generic Name Dose Route Start Last Admin Trade Name Freq PRN Reason Stop Dose Admin Acetaminophen 650 mg 04/04/20 21:36 Acetaminophen 325 Mg Tablet PO Q6H PRN Headache/Pain Mild Scale (1-3) Al Hydroxide/Mg Hydroxide 30 ml 04/04/20 21:36 Magnesium Hydrox/Alum Hydrox 30 Ml Oral.Susp PO Q6H PRN Heartburn/Nausea Donepezil HCl 10 mg 04/16/20 21:00 Donepezil Hcl 5 Mg Tablet PO BEDTIME HASMUKH Escitalopram Oxalate 5 mg 04/08/20 09:00 04/16/20 08:46 Escitalopram Oxalate 5 Mg Tablet PO 5 mg DAILY HASMUKH Administration Hydroxyzine HCl 25 mg 04/04/20 21:36 04/14/20 21:21 Hydroxyzine Hcl 25 Mg Tablet PO 25 mg BEDTIME PRN Administration Anxiety Magnesium Hydroxide 30 ml 04/04/20 21:36 Milk Of Magnesia 30 Ml Oral.Susp PO DAILY PRN Constipation Trazodone HCl 50 mg 04/04/20 21:36 Trazodone Hcl 50 Mg Tablet PO BEDTIME PRN Insomnia Allergies Allergies Allergy/AdvReac Type Severity Reaction Status Date / Time No Known Allergies Allergy Verified 04/02/20 20:21 [No Known Allergies*] Assessment & Plan Assessment & Plan (1) Atypical depressive disorder: Status: Acute Code(s): F32.89 - Other specified depressive episodes (2) Cognitive impairment: Status: Acute Code(s): R41.89 - Other symptoms and signs involving cognitive functions and awareness (3) Depression: Status: Acute Code(s): F32.9 - Major depressive disorder, single episode, unspecified Assessment and Plan: Continue current treatment plan. Increase Aricept Greater than 50% of the session was spent on counseling and/or coordination of care Patient educated on: diagnosis, medication risk/benefits, and medical condition Informed Consent: further education needed Reason for continued inpatient stay Substantial Risk for: inability to function and rapid decompensation Greater than 50% of the session was spent on counseling and/or coordination of care
[2020-04-16] MEDS: Donepezil HCl 5 MG TABLET 10 MG PO (22:03)
[2020-04-17 07:27] VITALS: BP 132/81; PULSE 88; TEMP 36.6
[2020-04-17] MEDS: Escitalopram Oxalate 5 MG TABLET PO (08:29)
[2020-04-17 09:37] VITALS: O2SAT 97
[2020-04-17 16:56] VITALS: BP 151/77; PULSE 109; TEMP 36.3; O2SAT 98
[2020-04-17] MEDS: Donepezil HCl 5 MG TABLET 10 MG PO (20:45)
--- NOTE | 2020-04-17 21:01 | HO.PSYCHPN ---
Subjective Subjective Reason For Visit: depression si hi Subjective Notes: Conditional Voluntary Interim History: The patient is anxious and irritable overwhelmed at times with lack of input into his future and inability to return home. He is asking to speak to his guardian the patient is socially engaged on the unit Medication Compliance: Yes Side effects from medications: No Attending Groups: Intermittent Mental Status Exam Mental Status Exam Narrative: Pt logical linear at times gets confused withdetails Patient Appearance: Disheveled Patient Orientation: Person, Place and Situation Level of Consciousness: Awake Patient Behavior: Appropriate Mood Description: Anxious and Apprehensive Affect Description: Calm, Anxious and Apprehensive Patient Cognition Impaired: Yes Speech Pattern: Clear Memory Description: Episodic Impaired and Recent Impaired Diagnostics Vital Signs (24Hr): Vital Signs - 24 hr 04/17/20 07:27 04/17/20 09:37 04/17/20 16:56 Temperature 97.8 F 97.3 F Pulse Rate 88 109 H Blood Pressure 132/81 151/77 H Pulse Oximetry 97 98 Body Mass Index 26.0 Labs Results: 04/02/20 18:46 04/05/20 07:59 Medications Medications Current Medications Generic Name Dose Route Start Last Admin Trade Name Freq PRN Reason Stop Dose Admin Acetaminophen 650 mg 04/04/20 21:36 Acetaminophen 325 Mg Tablet PO Q6H PRN Headache/Pain Mild Scale (1-3) Al Hydroxide/Mg Hydroxide 30 ml 04/04/20 21:36 Magnesium Hydrox/Alum Hydrox 30 Ml Oral.Susp PO Q6H PRN Heartburn/Nausea Donepezil HCl 10 mg 04/16/20 21:00 04/17/20 20:45 Donepezil Hcl 5 Mg Tablet PO 10 mg BEDTIME HASMUKH Administration Escitalopram Oxalate 5 mg 04/08/20 09:00 04/17/20 08:29 Escitalopram Oxalate 5 Mg Tablet PO 5 mg DAILY HASMUKH Administration Hydroxyzine HCl 25 mg 04/04/20 21:36 04/14/20 21:21 Hydroxyzine Hcl 25 Mg Tablet PO 25 mg BEDTIME PRN Administration Anxiety Magnesium Hydroxide 30 ml 04/04/20 21:36 Milk Of Magnesia 30 Ml Oral.Susp PO DAILY PRN Constipation Trazodone HCl 50 mg 04/04/20 21:36 Trazodone Hcl 50 Mg Tablet PO BEDTIME PRN Insomnia Allergies Allergies Allergy/AdvReac Type Severity Reaction Status Date / Time No Known Allergies Allergy Verified 04/02/20 20:21 [No Known Allergies*] Assessment & Plan Assessment & Plan (1) Atypical depressive disorder: Status: Acute Code(s): F32.89 - Other specified depressive episodes Assessment and Plan: continue Lexapro offer emotional support (2) Cognitive impairment: Status: Acute Code(s): R41.89 - Other symptoms and signs involving cognitive functions and awareness Assessment and Plan: Aricept coordination or supportive living situation Greater than 50% of the session was spent on counseling and/or coordination of care Patient educated on: diagnosis and medical condition Informed Consent: further education needed Reason for contiued inpatient stay Substantial Risk for: inability to function and rapid decompensation
[2020-04-18 06:45] VITALS: BP 142/84; PULSE 100; RESP 16; TEMP 36.2
[2020-04-18] MEDS: Escitalopram Oxalate 5 MG TABLET PO (09:16)
[2020-04-18 13:00] VITALS: BMI 26.4
[2020-04-18 18:00] VITALS: BP 149/78; PULSE 103; TEMP 36.8
--- NOTE | 2020-04-18 21:01 | HO.PSYCHPN ---
Subjective Subjective Date of Service: 04/18/20 Reason For Visit: depression si hi Subjective Notes: Conditional Voluntary Interim History: patient social and engaged has been accepted at a rest home setting Medication Compliance: Yes Side effects from medications: No Mental Status Exam Mental Status Exam Narrative: Pt logical linear at times gets confused withdetails Patient Appearance: Disheveled Patient Orientation: Person, Place and Situation Level of Consciousness: Awake Patient Behavior: Appropriate Mood Description: Anxious and Apprehensive Affect Description: Calm, Anxious and Apprehensive Patient Cognition Impaired: Yes Speech Pattern: Clear Memory Description: Episodic Impaired and Recent Impaired Delusions: Not Present Thought Content: negative for Suicidal Ideation and negative for Homicidal Ideation Diagnostics Vital Signs (24Hr): Vital Signs - 24 hr 04/18/20 06:45 04/18/20 18:00 Temperature 97.2 F 98.2 F Pulse Rate 100 103 H Respiratory Rate 16 Blood Pressure 142/84 H 149/78 H Body Mass Index 26.4 Labs Results: 04/02/20 18:46 04/05/20 07:59 Medications Medications Current Medications Generic Name Dose Route Start Last Admin Trade Name Freq PRN Reason Stop Dose Admin Acetaminophen 650 mg 04/04/20 21:36 Acetaminophen 325 Mg Tablet PO Q6H PRN Headache/Pain Mild Scale (1-3) Al Hydroxide/Mg Hydroxide 30 ml 04/04/20 21:36 Magnesium Hydrox/Alum Hydrox 30 Ml Oral.Susp PO Q6H PRN Heartburn/Nausea Donepezil HCl 10 mg 04/16/20 21:00 04/17/20 20:45 Donepezil Hcl 5 Mg Tablet PO 10 mg BEDTIME HASMUKH Administration Escitalopram Oxalate 5 mg 04/08/20 09:00 04/18/20 09:16 Escitalopram Oxalate 5 Mg Tablet PO 5 mg DAILY HASMUKH Administration Hydroxyzine HCl 25 mg 04/04/20 21:36 04/14/20 21:21 Hydroxyzine Hcl 25 Mg Tablet PO 25 mg BEDTIME PRN Administration Anxiety Magnesium Hydroxide 30 ml 04/04/20 21:36 Milk Of Magnesia 30 Ml Oral.Susp PO DAILY PRN Constipation Trazodone HCl 50 mg 04/04/20 21:36 Trazodone Hcl 50 Mg Tablet PO BEDTIME PRN Insomnia Allergies Allergies Allergy/AdvReac Type Severity Reaction Status Date / Time No Known Allergies Allergy Verified 04/02/20 20:21 [No Known Allergies*] Assessment & Plan Assessment & Plan (1) Atypical depressive disorder: Status: Acute Code(s): F32.89 - Other specified depressive episodes (2) Cognitive impairment: Status: Acute Code(s): R41.89 - Other symptoms and signs involving cognitive functions and awareness Assessment and Plan: continue Lexapro offer emotional support Aricept coordination of care with 2 rest home setting Greater than 50% of the session was spent on counseling and/or coordination of care Patient educated on: diagnosis and medical condition Informed Consent: further education needed Reason for contiued inpatient stay Substantial Risk for: inability to function and rapid decompensation
[2020-04-18] MEDS: Donepezil HCl 5 MG TABLET 10 MG PO (21:07)
[2020-04-19 06:05] VITALS: BP 121/73; PULSE 95; RESP 16; TEMP 36.3; O2SAT 97
[2020-04-19] MEDS: Escitalopram Oxalate 5 MG TABLET PO (09:17)
[2020-04-19 18:00] VITALS: BP 133/75; PULSE 93; TEMP 36.7
--- NOTE | 2020-04-19 19:52 | HO.PSYCHPN ---
Subjective Subjective Reason For Visit: depression si hi Subjective Notes: Conditional Voluntary Interim History: pt upset has not seen guardian Medication Compliance: Yes Side effects from medications: Yes Mental Status Exam Mental Status Exam Narrative: Pt logical linear at times gets confused withdetails Patient Appearance: Disheveled Patient Orientation: Person, Place and Situation Level of Consciousness: Awake Patient Behavior: Appropriate Mood Description: Anxious and Apprehensive Affect Description: Calm, Anxious and Apprehensive Patient Cognition Impaired: Yes Speech Pattern: Clear Memory Description: Episodic Impaired and Recent Impaired Diagnostics Vital Signs (24Hr): Vital Signs - 24 hr 04/19/20 06:05 04/19/20 18:00 Temperature 97.3 F 98.1 F Pulse Rate 95 93 Respiratory Rate 16 Blood Pressure 121/73 133/75 Pulse Oximetry 97 Body Mass Index 26.4 Labs Results: 04/02/20 18:46 04/05/20 07:59 Medications Medications Current Medications Generic Name Dose Route Start Last Admin Trade Name Freq PRN Reason Stop Dose Admin Acetaminophen 650 mg 04/04/20 21:36 Acetaminophen 325 Mg Tablet PO Q6H PRN Headache/Pain Mild Scale (1-3) Al Hydroxide/Mg Hydroxide 30 ml 04/04/20 21:36 Magnesium Hydrox/Alum Hydrox 30 Ml Oral.Susp PO Q6H PRN Heartburn/Nausea Donepezil HCl 10 mg 04/16/20 21:00 04/18/20 21:07 Donepezil Hcl 5 Mg Tablet PO 10 mg BEDTIME HASMUKH Administration Escitalopram Oxalate 5 mg 04/08/20 09:00 04/19/20 09:17 Escitalopram Oxalate 5 Mg Tablet PO 5 mg DAILY HASMUKH Administration Hydroxyzine HCl 25 mg 04/04/20 21:36 04/14/20 21:21 Hydroxyzine Hcl 25 Mg Tablet PO 25 mg BEDTIME PRN Administration Anxiety Magnesium Hydroxide 30 ml 04/04/20 21:36 Milk Of Magnesia 30 Ml Oral.Susp PO DAILY PRN Constipation Trazodone HCl 50 mg 04/04/20 21:36 Trazodone Hcl 50 Mg Tablet PO BEDTIME PRN Insomnia Allergies Allergies Allergy/AdvReac Type Severity Reaction Status Date / Time No Known Allergies Allergy Verified 04/02/20 20:21 [No Known Allergies*] Assessment & Plan Assessment & Plan (1) Atypical depressive disorder: Status: Acute Code(s): F32.89 - Other specified depressive episodes (2) Cognitive impairment: Status: Acute Code(s): R41.89 - Other symptoms and signs involving cognitive functions and awareness Assessment and Plan: continue Lexapro offer emotional support Aricept coordination of care with 2 rest home setting Greater than 50% of the session was spent on counseling and/or coordination of care
[2020-04-19] MEDS: Donepezil HCl 5 MG TABLET 10 MG PO (20:00)
[2020-04-20 06:20] VITALS: BP 122/70; PULSE 88; RESP 16; TEMP 36.7
[2020-04-20] MEDS: Escitalopram Oxalate 5 MG TABLET PO (08:49)
--- NOTE | 2020-04-20 10:49 | P.PNPSI_ITS ---
Subjective Subjective Date of Service: 04/20/20 Reason For Visit: depression si hi Subjective Notes: Conditional Voluntary Interim History: perseverating around not seeing 1/2 people that have say in his stay here at hospital, confused about peoples roles in relation to him glad to be moving someplace other than his sister's has never lived on his own. Medication Compliance: Yes Side effects from medications: No Attending Groups: Intermittent Review of Systems Review of Systems Yes all other systems are reviewed and are negative Mental Status Exam Mental Status Exam Patient Appearance: Disheveled Patient Orientation: Person and Place Level of Consciousness: Awake and Appropriate Patient Behavior: Cooperative, Passive and Good Eye Contact Mood Description: Anxious Affect Description: Calm Patient Cognition Impaired: Yes Ability to Follow Directions: Fair Speech Pattern: Clear and Perseverating Memory Description: Working Impaired Hallucinations: None Delusions: Not Present Thought Process: Rumination Thought Content: positive for [place] and positive for Preoccupation Depressive Symptoms: Increased Anxiety and Diff. Making Decisions Judgement: Poor Diagnostics Vital Signs (24Hr): Vital Signs - 24 hr 04/19/20 18:00 04/20/20 06:20 Temperature 98.1 F 98.1 F Pulse Rate 93 88 Respiratory Rate 16 Blood Pressure 133/75 122/70 Body Mass Index 26.4 Labs Results: 04/02/20 18:46 04/05/20 07:59 Medications Medications Current Medications Generic Name Dose Route Start Last Admin Trade Name Freq PRN Reason Stop Dose Admin Acetaminophen 650 mg 04/04/20 21:36 Acetaminophen 325 Mg Tablet PO Q6H PRN Headache/Pain Mild Scale (1-3) Al Hydroxide/Mg Hydroxide 30 ml 04/04/20 21:36 Magnesium Hydrox/Alum Hydrox 30 Ml Oral.Susp PO Q6H PRN Heartburn/Nausea Donepezil HCl 10 mg 04/16/20 21:00 04/19/20 20:00 Donepezil Hcl 5 Mg Tablet PO 10 mg BEDTIME HASMUKH Administration Escitalopram Oxalate 5 mg 04/08/20 09:00 04/20/20 08:49 Escitalopram Oxalate 5 Mg Tablet PO 5 mg DAILY HASMUKH Administration Hydroxyzine HCl 25 mg 04/04/20 21:36 04/14/20 21:21 Hydroxyzine Hcl 25 Mg Tablet PO 25 mg BEDTIME PRN Administration Anxiety Magnesium Hydroxide 30 ml 04/04/20 21:36 Milk Of Magnesia 30 Ml Oral.Susp PO DAILY PRN Constipation Trazodone HCl 50 mg 04/04/20 21:36 Trazodone Hcl 50 Mg Tablet PO BEDTIME PRN Insomnia Allergies Allergies Allergy/AdvReac Type Severity Reaction Status Date / Time No Known Allergies Allergy Verified 04/02/20 20:21 [No Known Allergies*] Assessment & Plan Assessment & Plan (1) Cognitive impairment: Status: Acute Code(s): R41.89 - Other symptoms and signs involving cognitive functions and awareness (2) Atypical depressive disorder: Status: Acute Code(s): F32.89 - Other specified depressive episodes Greater than 50% of the session was spent on counseling and/or coordination of care Patient educated on: other Guardian/Caregiver educated on: other (not present) Informed Consent: further education needed Reason for contiued inpatient stay Substantial Risk for: harm to others and inability to function
[2020-04-20 17:29] VITALS: BP 122/58; PULSE 92; TEMP 36.6
[2020-04-20] MEDS: Donepezil HCl 5 MG TABLET 10 MG PO (21:43)
[2020-04-21 06:08] VITALS: BP 130/85; PULSE 80; RESP 16; TEMP 36.1; O2SAT 96
[2020-04-21] MEDS: Escitalopram Oxalate 5 MG TABLET PO (08:54)
--- NOTE | 2020-04-21 14:58 | HO.PSYCHPN ---
Subjective Subjective Date of Service: 04/21/20 Reason For Visit: depression si hi Subjective Notes: Conditional Voluntary Interim History: Pt warning me about other patients and risk on unit, discussed with pt good strategy of retreating to room and taking time to himself if he feels things are to restless on unit Medication Compliance: Yes Side effects from medications: No Attending Groups: No Review of Systems Acute medical concerns: No Medical Review of Systems: unchanged Mental Status Exam Mental Status Exam Narrative: long hair and cook, mildly disheveled Patient Appearance: Appropriate Patient Orientation: Person, Place, Time and Situation Level of Consciousness: Awake and Appropriate Patient Behavior: Appropriate and Suspicious Patient Cognition Impaired: Yes Speech Pattern: Aphasic Thought Process: Intact Thought Content: positive for Intact Judgement: Fair Diagnostics Vital Signs (24Hr): Vital Signs - 24 hr 04/20/20 17:29 04/21/20 06:08 Temperature 97.9 F 96.9 F Pulse Rate 92 80 Respiratory Rate 16 Blood Pressure 122/58 L 130/85 Pulse Oximetry 96 Body Mass Index 26.4 Labs Results: 04/02/20 18:46 04/05/20 07:59 Medications Medications Current Medications Generic Name Dose Route Start Last Admin Trade Name Freq PRN Reason Stop Dose Admin Acetaminophen 650 mg 04/04/20 21:36 Acetaminophen 325 Mg Tablet PO Q6H PRN Headache/Pain Mild Scale (1-3) Al Hydroxide/Mg Hydroxide 30 ml 04/04/20 21:36 Magnesium Hydrox/Alum Hydrox 30 Ml Oral.Susp PO Q6H PRN Heartburn/Nausea Donepezil HCl 10 mg 04/16/20 21:00 04/20/20 21:43 Donepezil Hcl 5 Mg Tablet PO 10 mg BEDTIME HASMUKH Administration Escitalopram Oxalate 5 mg 04/08/20 09:00 04/21/20 08:54 Escitalopram Oxalate 5 Mg Tablet PO 5 mg DAILY HASMUKH Administration Hydroxyzine HCl 25 mg 04/04/20 21:36 04/14/20 21:21 Hydroxyzine Hcl 25 Mg Tablet PO 25 mg BEDTIME PRN Administration Anxiety Magnesium Hydroxide 30 ml 04/04/20 21:36 Milk Of Magnesia 30 Ml Oral.Susp PO DAILY PRN Constipation Trazodone HCl 50 mg 04/04/20 21:36 Trazodone Hcl 50 Mg Tablet PO BEDTIME PRN Insomnia Allergies Allergies Allergy/AdvReac Type Severity Reaction Status Date / Time No Known Allergies Allergy Verified 04/02/20 20:21 [No Known Allergies*] Assessment & Plan Assessment & Plan (1) Atypical depressive disorder: Status: Acute Code(s): F32.89 - Other specified depressive episodes Assessment and Plan: on lexapro and trazodone (2) Cognitive impairment: Status: Acute Code(s): R41.89 - Other symptoms and signs involving cognitive functions and awareness Assessment and Plan: no further decline Greater than 50% of the session was spent on counseling and/or coordination of care
[2020-04-21 18:00] VITALS: BP 135/72; PULSE 94; RESP 20; TEMP 37
[2020-04-21] MEDS: Donepezil HCl 5 MG TABLET 10 MG PO (20:05)
[2020-04-22 05:55] VITALS: BP 131/77; PULSE 80; RESP 16; TEMP 36.9
--- NOTE | 2020-04-22 07:26 | PM.PSYDC ---
DS: Providers Provider Date of admission: 04/04/20 15:48 Primary care physician: Unknown Physician DS: Diagnosis Discharge Diagnosis (1) Atypical depressive disorder: Status: Acute (2) Cognitive impairment: Status: Acute Discharge Plan Discharge Referrals: Physician,Unknown [Primary Care Provider] - Discharge Medications: No Action No Known Home Meds RF: 0 DS: Summary Time Spent with Patient Time attestation: Total time spent providing and/or coordinating discharge services:
[2020-04-22] MEDS: Escitalopram Oxalate 5 MG TABLET PO (09:16)
[2020-04-22 18:00] VITALS: BP 123/69; PULSE 91; TEMP 36.8
[2020-04-22] MEDS: Donepezil HCl 5 MG TABLET 10 MG PO (20:57)
--- NOTE | 2020-04-22 21:38 | HO.PSYCHPN ---
Subjective Subjective Reason For Visit: depression si hi Interim History: Patient generally feeling okay no complaints of side effects Mental Status Exam Mental Status Exam Patient Appearance: Appropriate Patient Orientation: Person, Place, Time and Situation Level of Consciousness: Awake and Appropriate Patient Behavior: Appropriate and Suspicious Mood Description: Anxious Affect Description: Calm Patient Cognition Impaired: Yes Ability to Follow Directions: Fair Speech Pattern: Aphasic Memory Description: Working Impaired Thought Content: positive for [place] and positive for Perseveration Depressive Symptoms: Increased Irritability Diagnostics Vital Signs (24Hr): Vital Signs - 24 hr 04/22/20 05:55 04/22/20 18:00 Temperature 98.4 F 98.3 F Pulse Rate 80 91 Respiratory Rate 16 Blood Pressure 131/77 123/69 Body Mass Index 26.4 Labs Results: 04/02/20 18:46 04/05/20 07:59 Medications Medications Current Medications Generic Name Dose Route Start Last Admin Trade Name Freq PRN Reason Stop Dose Admin Acetaminophen 650 mg 04/04/20 21:36 Acetaminophen 325 Mg Tablet PO Q6H PRN Headache/Pain Mild Scale (1-3) Al Hydroxide/Mg Hydroxide 30 ml 04/04/20 21:36 Magnesium Hydrox/Alum Hydrox 30 Ml Oral.Susp PO Q6H PRN Heartburn/Nausea Donepezil HCl 10 mg 04/16/20 21:00 04/22/20 20:57 Donepezil Hcl 5 Mg Tablet PO 10 mg BEDTIME HASMUKH Administration Escitalopram Oxalate 5 mg 04/08/20 09:00 04/22/20 09:16 Escitalopram Oxalate 5 Mg Tablet PO 5 mg DAILY HASMUKH Administration Hydroxyzine HCl 25 mg 04/04/20 21:36 04/14/20 21:21 Hydroxyzine Hcl 25 Mg Tablet PO 25 mg BEDTIME PRN Administration Anxiety Magnesium Hydroxide 30 ml 04/04/20 21:36 Milk Of Magnesia 30 Ml Oral.Susp PO DAILY PRN Constipation Trazodone HCl 50 mg 04/04/20 21:36 Trazodone Hcl 50 Mg Tablet PO BEDTIME PRN Insomnia Allergies Allergies Allergy/AdvReac Type Severity Reaction Status Date / Time No Known Allergies Allergy Verified 04/02/20 20:21 [No Known Allergies*] Assessment & Plan Assessment & Plan (1) Atypical depressive disorder: Status: Acute Code(s): F32.89 - Other specified depressive episodes Assessment and Plan: on lexapro and trazodone (2) Cognitive impairment: Status: Acute Code(s): R41.89 - Other symptoms and signs involving cognitive functions and awareness Assessment and Plan: no further decline Greater than 50% of the session was spent on counseling and/or coordination of care
[2020-04-23 05:50] VITALS: BP 122/77; PULSE 85; RESP 16; TEMP 35.9
[2020-04-23] MEDS: Escitalopram Oxalate 5 MG TABLET PO (08:36)
[2020-04-23 18:00] VITALS: BP 125/66; PULSE 101; TEMP 36.4
--- NOTE | 2020-04-23 19:49 | HO.PSYCHPN ---
Subjective Subjective Reason For Visit: depression si hi Interim History: Patient generally feeling okay no complaints of side effects enjoys Being social Mental Status Exam Mental Status Exam Patient Appearance: Appropriate Patient Orientation: Person, Place, Time and Situation Level of Consciousness: Awake and Appropriate Patient Behavior: Appropriate and Suspicious Mood Description: Anxious Affect Description: Calm Patient Cognition Impaired: Yes Ability to Follow Directions: Fair Speech Pattern: Aphasic Memory Description: Working Impaired Thought Process: Rumination Thought Content: positive for Circumstantial and positive for Preoccupation Judgement and Insight: no thoughts of harm to self or others he is worried about his sister Diagnostics Vital Signs (24Hr): Vital Signs - 24 hr 04/23/20 05:50 Temperature 96.6 F L Pulse Rate 85 Respiratory Rate 16 Blood Pressure 122/77 Body Mass Index 26.4 Labs Results: 04/02/20 18:46 04/05/20 07:59 Medications Medications Current Medications Generic Name Dose Route Start Last Admin Trade Name Freq PRN Reason Stop Dose Admin Acetaminophen 650 mg 04/04/20 21:36 Acetaminophen 325 Mg Tablet PO Q6H PRN Headache/Pain Mild Scale (1-3) Al Hydroxide/Mg Hydroxide 30 ml 04/04/20 21:36 Magnesium Hydrox/Alum Hydrox 30 Ml Oral.Susp PO Q6H PRN Heartburn/Nausea Donepezil HCl 10 mg 04/16/20 21:00 04/22/20 20:57 Donepezil Hcl 5 Mg Tablet PO 10 mg BEDTIME HASMUKH Administration Escitalopram Oxalate 5 mg 04/08/20 09:00 04/23/20 08:36 Escitalopram Oxalate 5 Mg Tablet PO 5 mg DAILY HASMUKH Administration Hydroxyzine HCl 25 mg 04/04/20 21:36 04/14/20 21:21 Hydroxyzine Hcl 25 Mg Tablet PO 25 mg BEDTIME PRN Administration Anxiety Magnesium Hydroxide 30 ml 04/04/20 21:36 Milk Of Magnesia 30 Ml Oral.Susp PO DAILY PRN Constipation Trazodone HCl 50 mg 04/04/20 21:36 Trazodone Hcl 50 Mg Tablet PO BEDTIME PRN Insomnia Allergies Allergies Allergy/AdvReac Type Severity Reaction Status Date / Time No Known Allergies Allergy Verified 04/02/20 20:21 [No Known Allergies*] Assessment & Plan Assessment & Plan (1) Atypical depressive disorder: Status: Acute Code(s): F32.89 - Other specified depressive episodes Assessment and Plan: on lexapro and trazodone (2) Cognitive impairment: Status: Acute Code(s): R41.89 - Other symptoms and signs involving cognitive functions and awareness Assessment and Plan: no further decline continue Aricept Greater than 50% of the session was spent on counseling and/or coordination of care Informed Consent: further education needed Reason for contiued inpatient stay Substantial Risk for: harm to self, inability to function and rapid decompensation
[2020-04-23] MEDS: Donepezil HCl 5 MG TABLET 10 MG PO (20:49)
[2020-04-24 05:55] VITALS: BP 134/84; PULSE 84; RESP 18; TEMP 36.7
[2020-04-24] MEDS: Escitalopram Oxalate 5 MG TABLET PO (08:50)
[2020-04-24 18:00] VITALS: BP 125/74; PULSE 86; TEMP 37.2
[2020-04-24] MEDS: Donepezil HCl 5 MG TABLET 10 MG PO (20:58)
--- NOTE | 2020-04-24 23:03 | HO.PSYCHPN ---
Subjective Subjective Reason For Visit: depression si hi Interim History: Patient generally feeling okay no complaints of side effects enjoys Being social has been referred to work rest home Mental Status Exam Mental Status Exam Patient Appearance: Appropriate Patient Orientation: Person, Place, Time and Situation Level of Consciousness: Awake and Appropriate Patient Behavior: Appropriate and Suspicious Mood Description: Anxious Affect Description: Calm Patient Cognition Impaired: Yes Ability to Follow Directions: Fair Speech Pattern: Aphasic Memory Description: Working Impaired Diagnostics Vital Signs (24Hr): Vital Signs - 24 hr 04/24/20 05:55 04/24/20 18:00 Temperature 98.0 F 98.9 F Pulse Rate 84 86 Respiratory Rate 18 Blood Pressure 134/84 125/74 Body Mass Index 26.4 Labs Results: 04/02/20 18:46 04/05/20 07:59 Medications Medications Current Medications Generic Name Dose Route Start Last Admin Trade Name Freq PRN Reason Stop Dose Admin Acetaminophen 650 mg 04/04/20 21:36 Acetaminophen 325 Mg Tablet PO Q6H PRN Headache/Pain Mild Scale (1-3) Al Hydroxide/Mg Hydroxide 30 ml 04/04/20 21:36 Magnesium Hydrox/Alum Hydrox 30 Ml Oral.Susp PO Q6H PRN Heartburn/Nausea Donepezil HCl 10 mg 04/16/20 21:00 04/24/20 20:58 Donepezil Hcl 5 Mg Tablet PO 10 mg BEDTIME HASMUKH Administration Escitalopram Oxalate 5 mg 04/08/20 09:00 04/24/20 08:50 Escitalopram Oxalate 5 Mg Tablet PO 5 mg DAILY HASMUKH Administration Hydroxyzine HCl 25 mg 04/04/20 21:36 04/14/20 21:21 Hydroxyzine Hcl 25 Mg Tablet PO 25 mg BEDTIME PRN Administration Anxiety Magnesium Hydroxide 30 ml 04/04/20 21:36 Milk Of Magnesia 30 Ml Oral.Susp PO DAILY PRN Constipation Trazodone HCl 50 mg 04/04/20 21:36 Trazodone Hcl 50 Mg Tablet PO BEDTIME PRN Insomnia Allergies Allergies Allergy/AdvReac Type Severity Reaction Status Date / Time No Known Allergies Allergy Verified 04/02/20 20:21 [No Known Allergies*] Assessment & Plan Assessment & Plan (1) Atypical depressive disorder: Status: Acute Code(s): F32.89 - Other specified depressive episodes Assessment and Plan: on lexapro and trazodone (2) Cognitive impairment: Status: Acute Code(s): R41.89 - Other symptoms and signs involving cognitive functions and awareness Assessment and Plan: no further decline continue Aricept Greater than 50% of the session was spent on counseling and/or coordination of care Reason for contiued inpatient stay Substantial Risk for: inability to function and rapid decompensation
[2020-04-25] MEDS: Acetaminophen 325 MG TABLET 650 MG PO (01:30)
[2020-04-25 06:00] VITALS: BP 131/61; PULSE 81; RESP 16; TEMP 36.4; O2SAT 96
[2020-04-25 07:00] VITALS: BMI 26.2
[2020-04-25] MEDS: Escitalopram Oxalate 5 MG TABLET PO (09:39)
[2020-04-25 18:00] VITALS: BP 135/73; PULSE 94; TEMP 37.1
[2020-04-25] MEDS: Donepezil HCl 5 MG TABLET 10 MG PO (20:31)
[2020-04-26 06:00] VITALS: BP 134/80; PULSE 88; TEMP 36.6
[2020-04-26] MEDS: Escitalopram Oxalate 5 MG TABLET PO (08:29)
--- NOTE | 2020-04-26 10:26 | P.HPPS_ITS ---
HPI Chief Complaint: depression si hi HPI Narrative: patient feels better after talking to guardian remains worried about sister but it in behavioral control looking forward to eventual discharge [facility] Surgical History History of amputation of finger of right hand Family History: dementia Social History: patient worked for much of his life he has to work for [employer] in the [employer] admit department. He has never has no children he has been living with his sister his whole life Trauma History: none noted Diagnostics Vital Signs (24Hr): Vital Signs - 24 hr 04/25/20 18:00 04/26/20 06:00 Temperature 98.7 F 98 F Pulse Rate 94 88 Blood Pressure 135/73 134/80 Body Mass Index 26.2 Labs Results: 04/02/20 18:46 04/05/20 07:59 Meds/Allergies Meds Home Medications Medication Instructions Recorded Confirmed Type No Known Home Meds 04/02/20 04/02/20 History Allergies Allergies Allergy/AdvReac Type Severity Reaction Status Date / Time No Known Allergies Allergy Verified 04/02/20 20:21 [No Known Allergies*]
[2020-04-26 18:00] VITALS: BP 129/69; PULSE 95; TEMP 36.8
[2020-04-26] MEDS: Donepezil HCl 5 MG TABLET 10 MG PO (20:17)
--- NOTE | 2020-04-26 21:56 | HO.PSYCHPN ---
Subjective Subjective Reason For Visit: depression si hi Interim History: patient says seems to feel more secure after talking with guardian continues concerned about his sister who remains social and engaged tolerating medication Mental Status Exam Mental Status Exam Narrative: no psychotic symptoms not overly depressed no self-harm no harm to others he is missing his sister Patient Appearance: Appropriate Patient Orientation: Person, Place, Time and Situation Level of Consciousness: Awake and Appropriate Patient Behavior: Appropriate and Anxious Mood Description: Anxious Affect Description: Calm Patient Cognition Impaired: Yes Ability to Follow Directions: Fair Speech Pattern: Aphasic Memory Description: Working Impaired Diagnostics Vital Signs (24Hr): Vital Signs - 24 hr 04/26/20 06:00 04/26/20 18:00 Temperature 98 F 98.3 F Pulse Rate 88 95 Blood Pressure 134/80 129/69 Body Mass Index 26.2 Labs Results: 04/02/20 18:46 04/05/20 07:59 Medications Medications Current Medications Generic Name Dose Route Start Last Admin Trade Name Freq PRN Reason Stop Dose Admin Acetaminophen 650 mg 04/04/20 21:36 04/25/20 01:30 Acetaminophen 325 Mg Tablet PO 650 mg Q6H PRN Administration Headache/Pain Mild Scale (1-3) Al Hydroxide/Mg Hydroxide 30 ml 04/04/20 21:36 Magnesium Hydrox/Alum Hydrox 30 Ml Oral.Susp PO Q6H PRN Heartburn/Nausea Donepezil HCl 10 mg 04/16/20 21:00 04/26/20 20:17 Donepezil Hcl 5 Mg Tablet PO 10 mg BEDTIME HASMUKH Administration Escitalopram Oxalate 5 mg 04/08/20 09:00 04/26/20 08:29 Escitalopram Oxalate 5 Mg Tablet PO 5 mg DAILY HASMUKH Administration Hydroxyzine HCl 25 mg 04/04/20 21:36 04/14/20 21:21 Hydroxyzine Hcl 25 Mg Tablet PO 25 mg BEDTIME PRN Administration Anxiety Magnesium Hydroxide 30 ml 04/04/20 21:36 Milk Of Magnesia 30 Ml Oral.Susp PO DAILY PRN Constipation Trazodone HCl 50 mg 04/04/20 21:36 Trazodone Hcl 50 Mg Tablet PO BEDTIME PRN Insomnia Allergies Allergies Allergy/AdvReac Type Severity Reaction Status Date / Time No Known Allergies Allergy Verified 04/02/20 20:21 [No Known Allergies*] Assessment & Plan Assessment & Plan (1) Atypical depressive disorder: Status: Acute Code(s): F32.89 - Other specified depressive episodes Assessment and Plan: on lexapro and trazodone (2) Cognitive impairment: Status: Acute Code(s): R41.89 - Other symptoms and signs involving cognitive functions and awareness Assessment and Plan: no further decline continue Aricept has guardian Greater than 50% of the session was spent on counseling and/or coordination of care
[2020-04-27] MEDS: Escitalopram Oxalate 5 MG TABLET PO (09:14)
[2020-04-27 11:04] VITALS: BP 118/77; PULSE 102; TEMP 36.5
[2020-04-27 17:19] VITALS: BP 134/80; PULSE 88; TEMP 37.2
--- NOTE | 2020-04-27 19:48 | HO.PSYCHPN ---
Subjective Subjective Date of Service: 04/27/20 Reason For Visit: depression si hi Subjective Notes: Conditional Voluntary Interim History: Patient says he is feeling well. He remains social and engaged He is tolerating medication Medication Compliance: Yes Side effects from medications: No Attending Groups: Intermittent Review of Systems Acute medical concerns: No Medical Review of Systems: unchanged Mental Status Exam Mental Status Exam Narrative: no psychotic symptoms not overly depressed no self-harm no harm to others he is missing his sister Patient Appearance: Appropriate Patient Orientation: Person, Place, Time and Situation Level of Consciousness: Awake and Appropriate Patient Behavior: Appropriate and Anxious Mood Description: Anxious Affect Description: Calm Patient Cognition Impaired: Yes Ability to Follow Directions: Fair Speech Pattern: Aphasic Memory Description: Working Impaired Hallucinations: None Delusions: Not Present Thought Process: Intact and Slowed Thinking Thought Content: positive for Perseveration, negative for Suicidal Ideation and negative for Homicidal Ideation Judgement: Fair Diagnostics Vital Signs (24Hr): Vital Signs - 24 hr 04/27/20 11:04 04/27/20 17:19 Temperature 97.7 F 98.9 F Pulse Rate 102 H 88 Blood Pressure 118/77 134/80 Body Mass Index 26.2 Labs Results: 04/02/20 18:46 04/05/20 07:59 Medications Medications Current Medications Generic Name Dose Route Start Last Admin Trade Name Freq PRN Reason Stop Dose Admin Acetaminophen 650 mg 04/04/20 21:36 04/25/20 01:30 Acetaminophen 325 Mg Tablet PO 650 mg Q6H PRN Administration Headache/Pain Mild Scale (1-3) Al Hydroxide/Mg Hydroxide 30 ml 04/04/20 21:36 Magnesium Hydrox/Alum Hydrox 30 Ml Oral.Susp PO Q6H PRN Heartburn/Nausea Donepezil HCl 10 mg 04/16/20 21:00 04/26/20 20:17 Donepezil Hcl 5 Mg Tablet PO 10 mg BEDTIME HASMUKH Administration Escitalopram Oxalate 5 mg 04/08/20 09:00 04/27/20 09:14 Escitalopram Oxalate 5 Mg Tablet PO 5 mg DAILY HASMUKH Administration Hydroxyzine HCl 25 mg 04/04/20 21:36 04/14/20 21:21 Hydroxyzine Hcl 25 Mg Tablet PO 25 mg BEDTIME PRN Administration Anxiety Magnesium Hydroxide 30 ml 04/04/20 21:36 Milk Of Magnesia 30 Ml Oral.Susp PO DAILY PRN Constipation Trazodone HCl 50 mg 04/04/20 21:36 Trazodone Hcl 50 Mg Tablet PO BEDTIME PRN Insomnia Allergies Allergies Allergy/AdvReac Type Severity Reaction Status Date / Time No Known Allergies Allergy Verified 04/02/20 20:21 [No Known Allergies*] Assessment & Plan Assessment & Plan (1) Cognitive impairment: Status: Acute Code(s): R41.89 - Other symptoms and signs involving cognitive functions and awareness Assessment and Plan: CT current treatment plan Greater than 50% of the session was spent on counseling and/or coordination of care Patient educated on: diagnosis and medication risk/benefits Informed Consent: further education needed Reason for contiued inpatient stay Substantial Risk for: rapid decompensation
[2020-04-27] MEDS: Donepezil HCl 5 MG TABLET 10 MG PO (22:06)
[2020-04-28 06:00] VITALS: BP 128/70; PULSE 79; RESP 16; TEMP 36.2; O2SAT 97
[2020-04-28] MEDS: Escitalopram Oxalate 5 MG TABLET PO (08:15)
--- NOTE | 2020-04-28 11:56 | HO.PSYCHPN ---
Subjective Subjective Date of Service: 04/28/20 Reason For Visit: depression si hi Subjective Notes: Conditional Voluntary Interim History: Patient says he is feeling well. He remains social and engaged He is tolerating medication. He is aware of plan for placement Medication Compliance: Yes Side effects from medications: No Attending Groups: Intermittent Review of Systems Acute medical concerns: No Medical Review of Systems: unchanged Mental Status Exam Mental Status Exam Narrative: no psychotic symptoms not overly depressed no self-harm no harm to others he is missing his sister Patient Appearance: Appropriate Patient Orientation: Person, Place, Time and Situation Level of Consciousness: Awake and Appropriate Patient Behavior: Appropriate and Anxious Mood Description: Anxious Affect Description: Calm Patient Cognition Impaired: Yes Ability to Follow Directions: Fair Speech Pattern: Aphasic Memory Description: Working Impaired Diagnostics Vital Signs (24Hr): Vital Signs - 24 hr 04/27/20 17:19 04/28/20 06:00 Temperature 98.9 F 97.2 F Pulse Rate 88 79 Respiratory Rate 16 Blood Pressure 134/80 128/70 Pulse Oximetry 97 Body Mass Index 26.2 Labs Results: 04/02/20 18:46 04/05/20 07:59 Medications Medications Current Medications Generic Name Dose Route Start Last Admin Trade Name Freq PRN Reason Stop Dose Admin Acetaminophen 650 mg 04/04/20 21:36 04/25/20 01:30 Acetaminophen 325 Mg Tablet PO 650 mg Q6H PRN Administration Headache/Pain Mild Scale (1-3) Al Hydroxide/Mg Hydroxide 30 ml 04/04/20 21:36 Magnesium Hydrox/Alum Hydrox 30 Ml Oral.Susp PO Q6H PRN Heartburn/Nausea Donepezil HCl 10 mg 04/16/20 21:00 04/27/20 22:06 Donepezil Hcl 5 Mg Tablet PO 10 mg BEDTIME HASMUKH Administration Escitalopram Oxalate 5 mg 04/08/20 09:00 04/28/20 08:15 Escitalopram Oxalate 5 Mg Tablet PO 5 mg DAILY HASMUKH Administration Hydroxyzine HCl 25 mg 04/04/20 21:36 04/14/20 21:21 Hydroxyzine Hcl 25 Mg Tablet PO 25 mg BEDTIME PRN Administration Anxiety Magnesium Hydroxide 30 ml 04/04/20 21:36 Milk Of Magnesia 30 Ml Oral.Susp PO DAILY PRN Constipation Trazodone HCl 50 mg 04/04/20 21:36 Trazodone Hcl 50 Mg Tablet PO BEDTIME PRN Insomnia Allergies Allergies Allergy/AdvReac Type Severity Reaction Status Date / Time No Known Allergies Allergy Verified 04/02/20 20:21 [No Known Allergies*] Assessment & Plan Assessment & Plan (1) Cognitive impairment: Status: Acute Code(s): R41.89 - Other symptoms and signs involving cognitive functions and awareness Assessment and Plan: CT current treatment plan Greater than 50% of the session was spent on counseling and/or coordination of care Patient educated on: diagnosis and medication risk/benefits Informed Consent: further education needed Reason for contiued inpatient stay Substantial Risk for: rapid decompensation
[2020-04-28 16:54] VITALS: BP 133/62; PULSE 77; TEMP 36.8
[2020-04-28] MEDS: Donepezil HCl 5 MG TABLET 10 MG PO (20:57)
[2020-04-29 06:00] VITALS: BP 121/73; PULSE 80; TEMP 37.1
[2020-04-29] MEDS: Escitalopram Oxalate 5 MG TABLET PO (08:27)
[2020-04-29 18:00] VITALS: BP 120/72; PULSE 70; TEMP 36.8
--- NOTE | 2020-04-29 19:18 | HO.PSYCHPN ---
Subjective Subjective Reason For Visit: depression si hi Interim History: Patient says he is feeling well. He remains social and engaged He is tolerating medication. He is aware of plan for placement Mental Status Exam Mental Status Exam Narrative: no psychotic symptoms not overly depressed no self-harm no harm to others he is missing his sister Patient Appearance: Appropriate Patient Orientation: Person, Place, Time and Situation Level of Consciousness: Awake and Appropriate Patient Behavior: Appropriate and Anxious Mood Description: Anxious Affect Description: Calm Patient Cognition Impaired: Yes Ability to Follow Directions: Fair Speech Pattern: Aphasic Memory Description: Working Impaired Diagnostics Vital Signs (24Hr): Vital Signs - 24 hr 04/29/20 06:00 Temperature 98.7 F Pulse Rate 80 Blood Pressure 121/73 Body Mass Index 26.2 Labs Results: 04/02/20 18:46 04/05/20 07:59 Medications Medications Current Medications Generic Name Dose Route Start Last Admin Trade Name Freq PRN Reason Stop Dose Admin Acetaminophen 650 mg 04/04/20 21:36 04/25/20 01:30 Acetaminophen 325 Mg Tablet PO 650 mg Q6H PRN Administration Headache/Pain Mild Scale (1-3) Al Hydroxide/Mg Hydroxide 30 ml 04/04/20 21:36 Magnesium Hydrox/Alum Hydrox 30 Ml Oral.Susp PO Q6H PRN Heartburn/Nausea Donepezil HCl 10 mg 04/16/20 21:00 04/28/20 20:57 Donepezil Hcl 5 Mg Tablet PO 10 mg BEDTIME HASMUKH Administration Escitalopram Oxalate 5 mg 04/08/20 09:00 04/29/20 08:27 Escitalopram Oxalate 5 Mg Tablet PO 5 mg DAILY HASMUKH Administration Hydroxyzine HCl 25 mg 04/04/20 21:36 04/14/20 21:21 Hydroxyzine Hcl 25 Mg Tablet PO 25 mg BEDTIME PRN Administration Anxiety Magnesium Hydroxide 30 ml 04/04/20 21:36 Milk Of Magnesia 30 Ml Oral.Susp PO DAILY PRN Constipation Trazodone HCl 50 mg 04/04/20 21:36 Trazodone Hcl 50 Mg Tablet PO BEDTIME PRN Insomnia Allergies Allergies Allergy/AdvReac Type Severity Reaction Status Date / Time No Known Allergies Allergy Verified 04/02/20 20:21 [No Known Allergies*] Assessment & Plan Assessment & Plan (1) Cognitive impairment: Status: Acute Code(s): R41.89 - Other symptoms and signs involving cognitive functions and awareness Assessment and Plan: CT current treatment plan Greater than 50% of the session was spent on counseling and/or coordination of care Reason for contiued inpatient stay Substantial Risk for: inability to function
[2020-04-29] MEDS: Donepezil HCl 5 MG TABLET 10 MG PO (20:58)
[2020-04-30 06:05] VITALS: BP 111/58; PULSE 84; RESP 16; TEMP 36.8; O2SAT 98
[2020-04-30] MEDS: Escitalopram Oxalate 5 MG TABLET PO (08:39)
--- NOTE | 2020-04-30 10:03 | HO.PSYCHPN ---
Subjective Subjective Reason For Visit: depression si hi Diagnostics Vital Signs (24Hr): Vital Signs - 24 hr 04/29/20 18:00 04/30/20 06:05 Temperature 98.2 F 98.2 F Pulse Rate 70 84 Respiratory Rate 16 Blood Pressure 120/72 111/58 L Pulse Oximetry 98 Body Mass Index 26.2 Labs Results: 04/02/20 18:46 04/05/20 07:59 Medications Medications Current Medications Generic Name Dose Route Start Last Admin Trade Name Freq PRN Reason Stop Dose Admin Acetaminophen 650 mg 04/04/20 21:36 04/25/20 01:30 Acetaminophen 325 Mg Tablet PO 650 mg Q6H PRN Administration Headache/Pain Mild Scale (1-3) Al Hydroxide/Mg Hydroxide 30 ml 04/04/20 21:36 Magnesium Hydrox/Alum Hydrox 30 Ml Oral.Susp PO Q6H PRN Heartburn/Nausea Donepezil HCl 10 mg 04/16/20 21:00 04/29/20 20:58 Donepezil Hcl 5 Mg Tablet PO 10 mg BEDTIME HASMUKH Administration Escitalopram Oxalate 5 mg 04/08/20 09:00 04/30/20 08:39 Escitalopram Oxalate 5 Mg Tablet PO 5 mg DAILY HASMUKH Administration Hydroxyzine HCl 25 mg 04/04/20 21:36 04/14/20 21:21 Hydroxyzine Hcl 25 Mg Tablet PO 25 mg BEDTIME PRN Administration Anxiety Magnesium Hydroxide 30 ml 04/04/20 21:36 Milk Of Magnesia 30 Ml Oral.Susp PO DAILY PRN Constipation Trazodone HCl 50 mg 04/04/20 21:36 Trazodone Hcl 50 Mg Tablet PO BEDTIME PRN Insomnia Allergies Allergies Allergy/AdvReac Type Severity Reaction Status Date / Time No Known Allergies Allergy Verified 04/02/20 20:21 [No Known Allergies*] Assessment & Plan Greater than 50% of the session was spent on counseling and/or coordination of care
[2020-04-30 18:00] VITALS: BP 116/68; PULSE 80; TEMP 36.9
--- NOTE | 2020-04-30 20:09 | HO.PSYCHPN ---
Subjective Subjective Reason For Visit: depression si hi Subjective Notes: Conditional Voluntary Interim History: patient continues to socialize can be irritable and reactive trying to make the best of things he is aware of discharge planning Medication Compliance: Yes Mental Status Exam Mental Status Exam Narrative: no psychotic symptoms not overly depressed no self-harm no harm to others he is missing his sister Patient Appearance: Appropriate Patient Orientation: Person, Place, Time and Situation Level of Consciousness: Awake and Appropriate Patient Behavior: Appropriate and Anxious Mood Description: Anxious Affect Description: Calm Patient Cognition Impaired: Yes Ability to Follow Directions: Fair Speech Pattern: Aphasic Memory Description: Working Impaired Diagnostics Vital Signs (24Hr): Vital Signs - 24 hr 04/30/20 06:05 Temperature 98.2 F Pulse Rate 84 Respiratory Rate 16 Blood Pressure 111/58 L Pulse Oximetry 98 Body Mass Index 26.2 Labs Results: 04/02/20 18:46 04/05/20 07:59 Medications Medications Current Medications Generic Name Dose Route Start Last Admin Trade Name Freq PRN Reason Stop Dose Admin Acetaminophen 650 mg 04/04/20 21:36 04/25/20 01:30 Acetaminophen 325 Mg Tablet PO 650 mg Q6H PRN Administration Headache/Pain Mild Scale (1-3) Al Hydroxide/Mg Hydroxide 30 ml 04/04/20 21:36 Magnesium Hydrox/Alum Hydrox 30 Ml Oral.Susp PO Q6H PRN Heartburn/Nausea Donepezil HCl 10 mg 04/16/20 21:00 04/29/20 20:58 Donepezil Hcl 5 Mg Tablet PO 10 mg BEDTIME HASMUKH Administration Escitalopram Oxalate 5 mg 04/08/20 09:00 04/30/20 08:39 Escitalopram Oxalate 5 Mg Tablet PO 5 mg DAILY HASMUKH Administration Hydroxyzine HCl 25 mg 04/04/20 21:36 04/14/20 21:21 Hydroxyzine Hcl 25 Mg Tablet PO 25 mg BEDTIME PRN Administration Anxiety Magnesium Hydroxide 30 ml 04/04/20 21:36 Milk Of Magnesia 30 Ml Oral.Susp PO DAILY PRN Constipation Trazodone HCl 50 mg 04/04/20 21:36 Trazodone Hcl 50 Mg Tablet PO BEDTIME PRN Insomnia Allergies Allergies Allergy/AdvReac Type Severity Reaction Status Date / Time No Known Allergies Allergy Verified 04/02/20 20:21 [No Known Allergies*] Assessment & Plan Assessment & Plan (1) Atypical depressive disorder: Status: Acute Code(s): F32.89 - Other specified depressive episodes (2) Cognitive impairment: Status: Acute Code(s): R41.89 - Other symptoms and signs involving cognitive functions and awareness Assessment and Plan: continue escitalopram and Aricept discharge plan Greater than 50% of the session was spent on counseling and/or coordination of care
[2020-04-30] MEDS: Donepezil HCl 5 MG TABLET 10 MG PO (20:19)
[2020-05-01] MEDS: Escitalopram Oxalate 5 MG TABLET PO (09:03)
[2020-05-01 09:14] VITALS: BP 131/74; PULSE 96; TEMP 36.6; O2SAT 99
[2020-05-01 16:45] VITALS: BP 140/84; PULSE 92; TEMP 36.7
[2020-05-01] MEDS: Donepezil HCl 5 MG TABLET 10 MG PO (20:58)
--- NOTE | 2020-05-01 22:49 | HO.PSYCHPN ---
Subjective Subjective Reason For Visit: depression si hi Subjective Notes: Conditional Voluntary Interim History: patient continues to socialize can be irritable and reactive trying to make the best of things he is aware of discharge planning will be seeing his sister thru [facility] eager to know she is ok Medication Compliance: Yes Side effects from medications: No Mental Status Exam Mental Status Exam Narrative: no psychotic symptoms not overly depressed no self-harm no harm to others he is missing his sister Patient Appearance: Appropriate Patient Orientation: Person, Place, Time and Situation Level of Consciousness: Awake and Appropriate Patient Behavior: Appropriate and Anxious Mood Description: Anxious Affect Description: Calm Patient Cognition Impaired: Yes Ability to Follow Directions: Fair Speech Pattern: Aphasic Memory Description: Working Impaired Diagnostics Vital Signs (24Hr): Vital Signs - 24 hr 05/01/20 09:14 05/01/20 16:45 Temperature 97.9 F 98.0 F Pulse Rate 96 92 Blood Pressure 131/74 140/84 H Pulse Oximetry 99 Body Mass Index 26.2 Labs Results: 04/02/20 18:46 04/05/20 07:59 Medications Medications Current Medications Generic Name Dose Route Start Last Admin Trade Name Freq PRN Reason Stop Dose Admin Acetaminophen 650 mg 04/04/20 21:36 04/25/20 01:30 Acetaminophen 325 Mg Tablet PO 650 mg Q6H PRN Administration Headache/Pain Mild Scale (1-3) Al Hydroxide/Mg Hydroxide 30 ml 04/04/20 21:36 Magnesium Hydrox/Alum Hydrox 30 Ml Oral.Susp PO Q6H PRN Heartburn/Nausea Donepezil HCl 10 mg 04/16/20 21:00 05/01/20 20:58 Donepezil Hcl 5 Mg Tablet PO 10 mg BEDTIME HASMUKH Administration Escitalopram Oxalate 5 mg 04/08/20 09:00 05/01/20 09:03 Escitalopram Oxalate 5 Mg Tablet PO 5 mg DAILY HASMUKH Administration Hydroxyzine HCl 25 mg 04/04/20 21:36 04/14/20 21:21 Hydroxyzine Hcl 25 Mg Tablet PO 25 mg BEDTIME PRN Administration Anxiety Magnesium Hydroxide 30 ml 04/04/20 21:36 Milk Of Magnesia 30 Ml Oral.Susp PO DAILY PRN Constipation Trazodone HCl 50 mg 04/04/20 21:36 Trazodone Hcl 50 Mg Tablet PO BEDTIME PRN Insomnia Allergies Allergies Allergy/AdvReac Type Severity Reaction Status Date / Time No Known Allergies Allergy Verified 04/02/20 20:21 [No Known Allergies*] Assessment & Plan Assessment & Plan (1) Atypical depressive disorder: Status: Acute Code(s): F32.89 - Other specified depressive episodes (2) Cognitive impairment: Status: Acute Code(s): R41.89 - Other symptoms and signs involving cognitive functions and awareness Assessment and Plan: continue escitalopram and Aricept discharge plan to rest home Greater than 50% of the session was spent on counseling and/or coordination of care
[2020-05-02 05:30] VITALS: BP 151/77; PULSE 92; RESP 18; TEMP 36.4; O2SAT 96
[2020-05-02] MEDS: Escitalopram Oxalate 5 MG TABLET PO (08:21)
[2020-05-02 13:41] VITALS: BMI 26.8
[2020-05-02 18:00] VITALS: BP 138/67; PULSE 84; TEMP 37.2
[2020-05-02] MEDS: Donepezil HCl 5 MG TABLET 10 MG PO (20:21)
--- NOTE | 2020-05-02 22:12 | P.PNPSI_ITS ---
Subjective Subjective Reason For Visit: depression si hi Interim History: patient continues to socialize can be irritable and reactive trying to make the best of things he is aware of discharge planning will be s eeing his sister [facility] eager to know she is ok otherwise no change Mental Status Exam Mental Status Exam Narrative: no psychotic symptoms not overly depressed no self-harm no harm to others he is missing his sister Patient Appearance: Appropriate Patient Orientation: Person, Place, Time and Situation Level of Consciousness: Awake and Appropriate Patient Behavior: Appropriate and Anxious Mood Description: Anxious Affect Description: Calm Patient Cognition Impaired: Yes Ability to Follow Directions: Fair Speech Pattern: Aphasic Memory Description: Working Impaired Diagnostics Vital Signs (24Hr): Vital Signs - 24 hr 05/02/20 05:30 05/02/20 18:00 Temperature 97.5 F 99 F Pulse Rate 92 84 Respiratory Rate 18 Blood Pressure 151/77 H 138/67 Pulse Oximetry 96 Body Mass Index 26.8 Labs Results: 04/02/20 18:46 04/05/20 07:59 Medications Medications Current Medications Generic Name Dose Route Start Last Admin Trade Name Freq PRN Reason Stop Dose Admin Acetaminophen 650 mg 04/04/20 21:36 04/25/20 01:30 Acetaminophen 325 Mg Tablet PO 650 mg Q6H PRN Administration Headache/Pain Mild Scale (1-3) Al Hydroxide/Mg Hydroxide 30 ml 04/04/20 21:36 Magnesium Hydrox/Alum Hydrox 30 Ml Oral.Susp PO Q6H PRN Heartburn/Nausea Donepezil HCl 10 mg 04/16/20 21:00 05/02/20 20:21 Donepezil Hcl 5 Mg Tablet PO 10 mg BEDTIME HASMUKH Administration Escitalopram Oxalate 5 mg 04/08/20 09:00 05/02/20 08:21 Escitalopram Oxalate 5 Mg Tablet PO 5 mg DAILY HASMUKH Administration Hydroxyzine HCl 25 mg 04/04/20 21:36 04/14/20 21:21 Hydroxyzine Hcl 25 Mg Tablet PO 25 mg BEDTIME PRN Administration Anxiety Magnesium Hydroxide 30 ml 04/04/20 21:36 Milk Of Magnesia 30 Ml Oral.Susp PO DAILY PRN Constipation Trazodone HCl 50 mg 04/04/20 21:36 Trazodone Hcl 50 Mg Tablet PO BEDTIME PRN Insomnia Allergies Allergies Allergy/AdvReac Type Severity Reaction Status Date / Time No Known Allergies Allergy Verified 04/02/20 20:21 [No Known Allergies*] Assessment & Plan Assessment & Plan (1) Atypical depressive disorder: Status: Acute Code(s): F32.89 - Other specified depressive episodes (2) Cognitive impairment: Status: Acute Code(s): R41.89 - Other symptoms and signs involving cognitive functions and awareness Assessment and Plan: continue escitalopram and Aricept discharge plan to rest home this continues to be true Greater than 50% of the session was spent on counseling and/or coordination of care Reason for contiued inpatient stay Substantial Risk for: harm to others, inability to function and rapid decompensation
[2020-05-03 05:55] VITALS: BP 138/75; PULSE 86; RESP 16; TEMP 36.3; O2SAT 97
[2020-05-03] MEDS: Escitalopram Oxalate 5 MG TABLET PO (09:30)
[2020-05-03 18:00] VITALS: PULSE 87; TEMP 37.2
[2020-05-03] MEDS: Donepezil HCl 5 MG TABLET 10 MG PO (21:28)
--- NOTE | 2020-05-03 22:07 | P.PNPSI_ITS ---
Subjective Subjective Reason For Visit: depression si hi Interim History: patient continues to socialize can be irritable and reactive trying to make the best of things he is aware of discharge planning will be s eeing his sister [facility] eager to know she is ok otherwise no change mood stable no si or hi Mental Status Exam Mental Status Exam Narrative: no psychotic symptoms not overly depressed no self-harm no harm to others he is missing his sister Patient Appearance: Appropriate Patient Orientation: Person, Place, Time and Situation Level of Consciousness: Awake and Appropriate Patient Behavior: Appropriate and Anxious Mood Description: Anxious Affect Description: Calm Patient Cognition Impaired: Yes Ability to Follow Directions: Fair Speech Pattern: Aphasic Memory Description: Working Impaired Depressive Symptoms: Increased Anxiety Judgement: Good Diagnostics Vital Signs (24Hr): Vital Signs - 24 hr 05/03/20 05:55 05/03/20 18:00 Temperature 97.3 F 98.9 F Pulse Rate 86 87 Respiratory Rate 16 Blood Pressure 138/75 Pulse Oximetry 97 Body Mass Index 26.8 Labs Results: 04/02/20 18:46 04/05/20 07:59 Medications Medications Current Medications Generic Name Dose Route Start Last Admin Trade Name Freq PRN Reason Stop Dose Admin Acetaminophen 650 mg 04/04/20 21:36 04/25/20 01:30 Acetaminophen 325 Mg Tablet PO 650 mg Q6H PRN Administration Headache/Pain Mild Scale (1-3) Al Hydroxide/Mg Hydroxide 30 ml 04/04/20 21:36 Magnesium Hydrox/Alum Hydrox 30 Ml Oral.Susp PO Q6H PRN Heartburn/Nausea Donepezil HCl 10 mg 04/16/20 21:00 05/03/20 21:28 Donepezil Hcl 5 Mg Tablet PO 10 mg BEDTIME HASMUKH Administration Escitalopram Oxalate 5 mg 04/08/20 09:00 05/03/20 09:30 Escitalopram Oxalate 5 Mg Tablet PO 5 mg DAILY HASMUKH Administration Hydroxyzine HCl 25 mg 04/04/20 21:36 04/14/20 21:21 Hydroxyzine Hcl 25 Mg Tablet PO 25 mg BEDTIME PRN Administration Anxiety Magnesium Hydroxide 30 ml 04/04/20 21:36 Milk Of Magnesia 30 Ml Oral.Susp PO DAILY PRN Constipation Trazodone HCl 50 mg 04/04/20 21:36 Trazodone Hcl 50 Mg Tablet PO BEDTIME PRN Insomnia Allergies Allergies Allergy/AdvReac Type Severity Reaction Status Date / Time No Known Allergies Allergy Verified 04/02/20 20:21 [No Known Allergies*] Assessment & Plan Assessment & Plan (1) Atypical depressive disorder: Status: Acute Code(s): F32.89 - Other specified depressive episodes (2) Cognitive impairment: Status: Acute Code(s): R41.89 - Other symptoms and signs involving cognitive functions and awareness Assessment and Plan: continue escitalopram and Aricept discharge plan to rest home this continues to be true Greater than 50% of the session was spent on counseling and/or coordination of care
[2020-05-04] MEDS: Acetaminophen 325 MG TABLET 650 MG PO ×2 (03:19→19:29)
[2020-05-04 04:10] VITALS: BP 113/70; PULSE 96; RESP 18; TEMP 36.4
[2020-05-04] MEDS: Escitalopram Oxalate 5 MG TABLET PO (08:43)
--- NOTE | 2020-05-04 11:37 | HO.PSYCHPN ---
Subjective Subjective Reason For Visit: depression si hi Interim History: patient continues to socialize and remain visible;some irritability; he is aware of discharge planning will be seeing his sister [facility] eager to know she is ok otherwise no change Review of Systems Review of Systems Yes all other systems are reviewed and are negative Mental Status Exam Mental Status Exam Narrative: no psychotic symptoms not overly depressed no self-harm no harm to others he is missing his sister Patient Appearance: Appropriate Patient Orientation: Person, Place, Time and Situation Level of Consciousness: Awake and Appropriate Patient Behavior: Appropriate and Anxious Mood Description: Anxious Affect Description: Calm Patient Cognition Impaired: Yes Ability to Follow Directions: Fair Speech Pattern: Aphasic Memory Description: Working Impaired Diagnostics Vital Signs (24Hr): Vital Signs - 24 hr 05/03/20 18:00 05/04/20 04:10 Temperature 98.9 F 97.5 F Pulse Rate 87 96 Respiratory Rate 18 Blood Pressure 113/70 Body Mass Index 26.8 Labs Results: 04/02/20 18:46 04/05/20 07:59 Medications Medications Current Medications Generic Name Dose Route Start Last Admin Trade Name Freq PRN Reason Stop Dose Admin Acetaminophen 650 mg 04/04/20 21:36 05/04/20 03:19 Acetaminophen 325 Mg Tablet PO 650 mg Q6H PRN Administration Headache/Pain Mild Scale (1-3) Al Hydroxide/Mg Hydroxide 30 ml 04/04/20 21:36 Magnesium Hydrox/Alum Hydrox 30 Ml Oral.Susp PO Q6H PRN Heartburn/Nausea Donepezil HCl 10 mg 04/16/20 21:00 05/03/20 21:28 Donepezil Hcl 5 Mg Tablet PO 10 mg BEDTIME HASMUKH Administration Escitalopram Oxalate 5 mg 04/08/20 09:00 05/04/20 08:43 Escitalopram Oxalate 5 Mg Tablet PO 5 mg DAILY HASMUKH Administration Hydroxyzine HCl 25 mg 04/04/20 21:36 04/14/20 21:21 Hydroxyzine Hcl 25 Mg Tablet PO 25 mg BEDTIME PRN Administration Anxiety Magnesium Hydroxide 30 ml 04/04/20 21:36 Milk Of Magnesia 30 Ml Oral.Susp PO DAILY PRN Constipation Trazodone HCl 50 mg 04/04/20 21:36 Trazodone Hcl 50 Mg Tablet PO BEDTIME PRN Insomnia Allergies Allergies Allergy/AdvReac Type Severity Reaction Status Date / Time No Known Allergies Allergy Verified 04/02/20 20:21 [No Known Allergies*] Assessment & Plan Assessment & Plan (1) Atypical depressive disorder: Status: Acute Code(s): F32.89 - Other specified depressive episodes (2) Cognitive impairment: Status: Acute Code(s): R41.89 - Other symptoms and signs involving cognitive functions and awareness Assessment and Plan: continue escitalopram and Aricept discharge plan to rest home Greater than 50% of the session was spent on counseling and/or coordination of care
[2020-05-04 17:10] VITALS: BP 138/92; PULSE 97; TEMP 36.4
[2020-05-04] MEDS: Donepezil HCl 5 MG TABLET 10 MG PO (20:33)
[2020-05-05 05:55] VITALS: BP 120/67; PULSE 81; RESP 16; TEMP 36.2; O2SAT 98
[2020-05-05] MEDS: Acetaminophen 325 MG TABLET 650 MG PO (07:09)
[2020-05-05] MEDS: Escitalopram Oxalate 5 MG TABLET PO (08:52)
--- NOTE | 2020-05-05 12:01 | P.PNPSI_ITS ---
Subjective Subjective Date of Service: 05/05/20 Reason For Visit: depression si hi Subjective Notes: Conditional Voluntary Interim History: patient continues to socialize and remain visible;very calm and pleasant today; no irritability; he is aware of discharge planning. Medication Compliance: Yes Side effects from medications: No Attending Groups: Yes Review of Systems Review of Systems no changes Mental Status Exam Mental Status Exam Narrative: no psychotic symptoms not overly depressed no self-harm no harm to others he is missing his sister Patient Appearance: Appropriate Patient Orientation: Person, Place, Time and Situation Level of Consciousness: Awake and Appropriate Patient Behavior: Appropriate and Anxious Mood Description: Appropriate and Anxious Affect Description: Calm Patient Cognition Impaired: Yes Ability to Follow Directions: Good Speech Pattern: Aphasic Memory Description: Working Impaired Thought Process: Goal Oriented Thought Content: positive for Goal Oriented Judgement: Good Diagnostics Vital Signs (24Hr): Vital Signs - 24 hr 05/04/20 17:10 05/05/20 05:55 Temperature 97.6 F 97.1 F Pulse Rate 97 81 Respiratory Rate 16 Blood Pressure 138/92 H 120/67 Pulse Oximetry 98 Body Mass Index 26.8 Labs Results: 04/02/20 18:46 04/05/20 07:59 Medications Medications Current Medications Generic Name Dose Route Start Last Admin Trade Name Freq PRN Reason Stop Dose Admin Acetaminophen 650 mg 04/04/20 21:36 05/05/20 07:09 Acetaminophen 325 Mg Tablet PO 650 mg Q6H PRN Administration Headache/Pain Mild Scale (1-3) Al Hydroxide/Mg Hydroxide 30 ml 04/04/20 21:36 Magnesium Hydrox/Alum Hydrox 30 Ml Oral.Susp PO Q6H PRN Heartburn/Nausea Donepezil HCl 10 mg 04/16/20 21:00 05/04/20 20:33 Donepezil Hcl 5 Mg Tablet PO 10 mg BEDTIME HASMUKH Administration Escitalopram Oxalate 5 mg 04/08/20 09:00 05/05/20 08:52 Escitalopram Oxalate 5 Mg Tablet PO 5 mg DAILY HASMUKH Administration Hydroxyzine HCl 25 mg 04/04/20 21:36 04/14/20 21:21 Hydroxyzine Hcl 25 Mg Tablet PO 25 mg BEDTIME PRN Administration Anxiety Magnesium Hydroxide 30 ml 04/04/20 21:36 Milk Of Magnesia 30 Ml Oral.Susp PO DAILY PRN Constipation Trazodone HCl 50 mg 04/04/20 21:36 Trazodone Hcl 50 Mg Tablet PO BEDTIME PRN Insomnia Allergies Allergies Allergy/AdvReac Type Severity Reaction Status Date / Time No Known Allergies Allergy Verified 04/02/20 20:21 [No Known Allergies*] Assessment & Plan Assessment & Plan (1) Atypical depressive disorder: Status: Acute Code(s): F32.89 - Other specified depressive episodes (2) Cognitive impairment: Status: Acute Code(s): R41.89 - Other symptoms and signs involving cognitive functions and awareness Assessment and Plan: continue escitalopram and Aricept discharge plan to rest home Greater than 50% of the session was spent on counseling and/or coordination of c are Patient educated on: medication risk/benefits Informed Consent: further education needed Reason for contiued inpatient stay Substantial Risk for: med/psych decompensation
[2020-05-05 18:00] VITALS: BP 149/73; PULSE 87; TEMP 36.9
[2020-05-05] MEDS: Donepezil HCl 5 MG TABLET 10 MG PO (20:12)
[2020-05-06 05:55] VITALS: BP 131/75; PULSE 90; RESP 18; TEMP 37
--- NOTE | 2020-05-06 09:10 | HO.PSYCHPN ---
Subjective Subjective Date of Service: 05/06/20 Reason For Visit: depression si hi Subjective Notes: Conditional Voluntary Interim History: Individual remains unchanged. He continues to socialize and remain visible. He is very calm and pleasant with no irritability. He is aware of discharge planning. He is likely to go to [facility] once administrative details are sorted out. Medication Compliance: Yes Side effects from medications: No Attending Groups: Yes Review of Systems Acute medical concerns: No Medical Review of Systems: unchanged Mental Status Exam Mental Status Exam Narrative: no psychotic symptoms not overly depressed no self-harm no harm to others he is missing his sister Patient Appearance: Appropriate Patient Orientation: Person, Place, Time and Situation Level of Consciousness: Awake and Appropriate Patient Behavior: Appropriate and Anxious Mood Description: Appropriate and Anxious Affect Description: Calm Patient Cognition Impaired: Yes Ability to Follow Directions: Good Speech Pattern: Aphasic Memory Description: Working Impaired Thought Process: Goal Oriented Thought Content: positive for Goal Oriented, negative for Suicidal Ideation and negative for Homicidal Ideation Judgement: Good Diagnostics Vital Signs (24Hr): Vital Signs - 24 hr 05/05/20 18:00 05/06/20 05:55 Temperature 98.4 F 98.6 F Pulse Rate 87 90 Respiratory Rate 18 Blood Pressure 149/73 H 131/75 Body Mass Index 26.8 Labs Results: 04/02/20 18:46 04/05/20 07:59 Medications Medications Current Medications Generic Name Dose Route Start Last Admin Trade Name Freq PRN Reason Stop Dose Admin Acetaminophen 650 mg 04/04/20 21:36 05/05/20 07:09 Acetaminophen 325 Mg Tablet PO 650 mg Q6H PRN Administration Headache/Pain Mild Scale (1-3) Al Hydroxide/Mg Hydroxide 30 ml 04/04/20 21:36 Magnesium Hydrox/Alum Hydrox 30 Ml Oral.Susp PO Q6H PRN Heartburn/Nausea Donepezil HCl 10 mg 04/16/20 21:00 05/05/20 20:12 Donepezil Hcl 5 Mg Tablet PO 10 mg BEDTIME HASMUKH Administration Escitalopram Oxalate 5 mg 04/08/20 09:00 05/05/20 08:52 Escitalopram Oxalate 5 Mg Tablet PO 5 mg DAILY HASMUKH Administration Hydroxyzine HCl 25 mg 04/04/20 21:36 04/14/20 21:21 Hydroxyzine Hcl 25 Mg Tablet PO 25 mg BEDTIME PRN Administration Anxiety Magnesium Hydroxide 30 ml 04/04/20 21:36 Milk Of Magnesia 30 Ml Oral.Susp PO DAILY PRN Constipation Trazodone HCl 50 mg 04/04/20 21:36 Trazodone Hcl 50 Mg Tablet PO BEDTIME PRN Insomnia Allergies Allergies Allergy/AdvReac Type Severity Reaction Status Date / Time No Known Allergies Allergy Verified 04/02/20 20:21 [No Known Allergies*] Assessment & Plan Assessment & Plan (1) Atypical depressive disorder: Status: Acute Code(s): F32.89 - Other specified depressive episodes (2) Cognitive impairment: Status: Acute Code(s): R41.89 - Other symptoms and signs involving cognitive functions and awareness Assessment and Plan: CT current treatment plan Greater than 50% of the session was spent on counseling and/or coordination of care Patient educated on: diagnosis and medication risk/benefits Informed Consent: further education needed Reason for contiued inpatient stay Substantial Risk for: rapid decompensation
[2020-05-06] MEDS: Escitalopram Oxalate 5 MG TABLET PO (09:39)
[2020-05-06 16:05] VITALS: BP 129/88; PULSE 87; TEMP 36.7
[2020-05-06] MEDS: Donepezil HCl 5 MG TABLET 10 MG PO (20:26)
[2020-05-07 06:00] VITALS: BP 149/75; PULSE 100; TEMP 36.6
[2020-05-07] MEDS: Escitalopram Oxalate 5 MG TABLET PO (09:02)
[2020-05-07 18:00] VITALS: BP 122/71; PULSE 104; TEMP 36.5
[2020-05-07] MEDS: Donepezil HCl 5 MG TABLET 10 MG PO (20:40)
[2020-05-07] MEDS: Acetaminophen 325 MG TABLET 650 MG PO (20:42)
--- NOTE | 2020-05-07 21:32 | HO.PSYCHPN ---
Subjective Subjective Reason For Visit: depression si hi Interim History: Individual remains unchanged. He continues to socialize and remain visible. He is very calm and pleasant with no irritability. He is aware of discharge planning. He is likely to go to [facility] once administrative details are sorted out. this continues to be true Mental Status Exam Mental Status Exam Narrative: no psychotic symptoms not overly depressed no self-harm no harm to others he is missing his sister Patient Appearance: Appropriate Patient Orientation: Person, Place, Time and Situation Level of Consciousness: Awake and Appropriate Patient Behavior: Appropriate and Anxious Mood Description: Appropriate and Anxious Affect Description: Calm Patient Cognition Impaired: Yes Ability to Follow Directions: Good Speech Pattern: Aphasic Memory Description: Working Impaired Diagnostics Vital Signs (24Hr): Vital Signs - 24 hr 05/07/20 06:00 05/07/20 18:00 Temperature 97.8 F 97.7 F Pulse Rate 100 104 H Blood Pressure 149/75 H 122/71 Body Mass Index 26.8 Labs Results: 04/02/20 18:46 04/05/20 07:59 Medications Medications Current Medications Generic Name Dose Route Start Last Admin Trade Name Freq PRN Reason Stop Dose Admin Acetaminophen 650 mg 04/04/20 21:36 05/07/20 20:42 Acetaminophen 325 Mg Tablet PO 650 mg Q6H PRN Administration Headache/Pain Mild Scale (1-3) Al Hydroxide/Mg Hydroxide 30 ml 04/04/20 21:36 Magnesium Hydrox/Alum Hydrox 30 Ml Oral.Susp PO Q6H PRN Heartburn/Nausea Donepezil HCl 10 mg 04/16/20 21:00 05/07/20 20:40 Donepezil Hcl 5 Mg Tablet PO 10 mg BEDTIME HASMUKH Administration Escitalopram Oxalate 5 mg 04/08/20 09:00 05/07/20 09:02 Escitalopram Oxalate 5 Mg Tablet PO 5 mg DAILY HASMUKH Administration Hydroxyzine HCl 25 mg 04/04/20 21:36 04/14/20 21:21 Hydroxyzine Hcl 25 Mg Tablet PO 25 mg BEDTIME PRN Administration Anxiety Magnesium Hydroxide 30 ml 04/04/20 21:36 Milk Of Magnesia 30 Ml Oral.Susp PO DAILY PRN Constipation Trazodone HCl 50 mg 04/04/20 21:36 Trazodone Hcl 50 Mg Tablet PO BEDTIME PRN Insomnia Allergies Allergies Allergy/AdvReac Type Severity Reaction Status Date / Time No Known Allergies Allergy Verified 04/02/20 20:21 [No Known Allergies*] Assessment & Plan Assessment & Plan (1) Atypical depressive disorder: Status: Acute Code(s): F32.89 - Other specified depressive episodes (2) Cognitive impairment: Status: Acute Code(s): R41.89 - Other symptoms and signs involving cognitive functions and awareness Assessment and Plan: CT current treatment plan Greater than 50% of the session was spent on counseling and/or coordination of care
[2020-05-08 05:55] VITALS: BP 136/72; PULSE 82; RESP 16; TEMP 36.6
[2020-05-08] MEDS: Escitalopram Oxalate 5 MG TABLET PO (08:38)
[2020-05-08 18:00] VITALS: BP 131/65; PULSE 87; TEMP 36.1
--- NOTE | 2020-05-08 20:14 | HO.PSYCHPN ---
Subjective Subjective Reason For Visit: depression si hi Interim History: Individual remains unchanged. He continues to socialize and remain visible. He is very calm and pleasant with no irritability. He is aware of discharge planning. He is likely to go to [facility] once administrative details are sorted out. this continues to be true above continue to be true moles form completed Mental Status Exam Mental Status Exam Narrative: no psychotic symptoms not overly depressed no self-harm no harm to others he is missing his sister Patient Appearance: Appropriate Patient Orientation: Person, Place, Time and Situation Level of Consciousness: Awake and Appropriate Patient Behavior: Appropriate and Anxious Mood Description: Appropriate and Anxious Affect Description: Calm Patient Cognition Impaired: Yes Ability to Follow Directions: Good Speech Pattern: Aphasic Memory Description: Working Impaired Diagnostics Vital Signs (24Hr): Vital Signs - 24 hr 05/08/20 05:55 Temperature 97.9 F Pulse Rate 82 Respiratory Rate 16 Blood Pressure 136/72 Body Mass Index 26.8 Labs Results: 04/02/20 18:46 04/05/20 07:59 Medications Medications Current Medications Generic Name Dose Route Start Last Admin Trade Name Freq PRN Reason Stop Dose Admin Acetaminophen 650 mg 04/04/20 21:36 05/07/20 20:42 Acetaminophen 325 Mg Tablet PO 650 mg Q6H PRN Administration Headache/Pain Mild Scale (1-3) Al Hydroxide/Mg Hydroxide 30 ml 04/04/20 21:36 Magnesium Hydrox/Alum Hydrox 30 Ml Oral.Susp PO Q6H PRN Heartburn/Nausea Donepezil HCl 10 mg 04/16/20 21:00 05/07/20 20:40 Donepezil Hcl 5 Mg Tablet PO 10 mg BEDTIME HASMUKH Administration Escitalopram Oxalate 5 mg 04/08/20 09:00 05/08/20 08:38 Escitalopram Oxalate 5 Mg Tablet PO 5 mg DAILY HASMUKH Administration Hydroxyzine HCl 25 mg 04/04/20 21:36 04/14/20 21:21 Hydroxyzine Hcl 25 Mg Tablet PO 25 mg BEDTIME PRN Administration Anxiety Magnesium Hydroxide 30 ml 04/04/20 21:36 Milk Of Magnesia 30 Ml Oral.Susp PO DAILY PRN Constipation Trazodone HCl 50 mg 04/04/20 21:36 Trazodone Hcl 50 Mg Tablet PO BEDTIME PRN Insomnia Allergies Allergies Allergy/AdvReac Type Severity Reaction Status Date / Time No Known Allergies Allergy Verified 04/02/20 20:21 [No Known Allergies*] Assessment & Plan Assessment & Plan (1) Atypical depressive disorder: Status: Acute Code(s): F32.89 - Other specified depressive episodes (2) Cognitive impairment: Status: Acute Code(s): R41.89 - Other symptoms and signs involving cognitive functions and awareness Assessment and Plan: CT current treatment plan Greater than 50% of the session was spent on counseling and/or coordination of care
[2020-05-08] MEDS: Donepezil HCl 5 MG TABLET 10 MG PO (21:14)
[2020-05-08] MEDS: Acetaminophen 325 MG TABLET 650 MG PO (21:21)
[2020-05-09 05:55] VITALS: BP 132/60; PULSE 87; RESP 18; TEMP 36.2; O2SAT 96
[2020-05-09 07:00] VITALS: BMI 26.7
[2020-05-09] MEDS: Escitalopram Oxalate 5 MG TABLET PO (09:29)
[2020-05-09 15:55] VITALS: BP 144/84; PULSE 94; TEMP 36.5
--- NOTE | 2020-05-09 21:25 | HO.PSYCHPN ---
Subjective Subjective Reason For Visit: depression si hi Subjective Notes: Conditional Voluntary Interim History: Patient has been social and engaged gets upset at times over other patients on the unit who. Future oriented some periods of anxiety aware of discharge planning Medication Compliance: Yes Diagnostics Vital Signs (24Hr): Vital Signs - 24 hr 05/09/20 05:55 05/09/20 15:55 Temperature 97.1 F 97.7 F Pulse Rate 87 94 Respiratory Rate 18 Blood Pressure 132/60 144/84 H Pulse Oximetry 96 Body Mass Index 26.7 Labs Results: 04/02/20 18:46 04/05/20 07:59 Medications Medications Current Medications Generic Name Dose Route Start Last Admin Trade Name Freq PRN Reason Stop Dose Admin Acetaminophen 650 mg 04/04/20 21:36 05/08/20 21:21 Acetaminophen 325 Mg Tablet PO 650 mg Q6H PRN Administration Headache/Pain Mild Scale (1-3) Al Hydroxide/Mg Hydroxide 30 ml 04/04/20 21:36 Magnesium Hydrox/Alum Hydrox 30 Ml Oral.Susp PO Q6H PRN Heartburn/Nausea Donepezil HCl 10 mg 04/16/20 21:00 05/08/20 21:14 Donepezil Hcl 5 Mg Tablet PO 10 mg BEDTIME HASMUKH Administration Escitalopram Oxalate 5 mg 04/08/20 09:00 05/09/20 09:29 Escitalopram Oxalate 5 Mg Tablet PO 5 mg DAILY HASMUKH Administration Hydroxyzine HCl 25 mg 04/04/20 21:36 04/14/20 21:21 Hydroxyzine Hcl 25 Mg Tablet PO 25 mg BEDTIME PRN Administration Anxiety Magnesium Hydroxide 30 ml 04/04/20 21:36 Milk Of Magnesia 30 Ml Oral.Susp PO DAILY PRN Constipation Trazodone HCl 50 mg 04/04/20 21:36 Trazodone Hcl 50 Mg Tablet PO BEDTIME PRN Insomnia Allergies Allergies Allergy/AdvReac Type Severity Reaction Status Date / Time No Known Allergies Allergy Verified 04/02/20 20:21 [No Known Allergies*] Assessment & Plan Greater than 50% of the session was spent on counseling and/or coordination of care Informed Consent: further education needed Reason for contiued inpatient stay Substantial Risk for: inability to function
[2020-05-09] MEDS: Donepezil HCl 5 MG TABLET 10 MG PO (22:12)
[2020-05-10 05:35] VITALS: BP 121/70; PULSE 77; RESP 16; TEMP 36.4; O2SAT 98
[2020-05-10] MEDS: Acetaminophen 325 MG TABLET 650 MG PO (06:08)
[2020-05-10] MEDS: Escitalopram Oxalate 5 MG TABLET PO (08:22)
[2020-05-10] MEDS: Donepezil HCl 5 MG TABLET 10 MG PO (20:14)
--- NOTE | 2020-05-10 20:40 | HO.PSYCHPN ---
Subjective Subjective Reason For Visit: depression si hi Subjective Notes: Conditional Voluntary Interim History: continue discharge planning patient cooperative Mental Status Exam Mental Status Exam Narrative: no psychotic symptoms not overly depressed no self-harm no harm to others he is missing his sister Patient Appearance: Appropriate Patient Orientation: Person, Place, Time and Situation Level of Consciousness: Awake and Appropriate Patient Behavior: Appropriate and Anxious Mood Description: Appropriate and Anxious Affect Description: Calm Patient Cognition Impaired: Yes Ability to Follow Directions: Good Speech Pattern: Aphasic Memory Description: Working Impaired Diagnostics Vital Signs (24Hr): Vital Signs - 24 hr 05/11/20 07:18 05/11/20 08:40 05/11/20 18:00 Temperature 97.1 F 97.8 F Pulse Rate 77 97 Blood Pressure 142/80 H 157/78 H Pulse Oximetry 96 Body Mass Index 26.7 Labs Results: 04/02/20 18:46 04/05/20 07:59 Medications Medications Current Medications Generic Name Dose Route Start Last Admin Trade Name Freq PRN Reason Stop Dose Admin Acetaminophen 650 mg 04/04/20 21:36 05/11/20 09:55 Acetaminophen 325 Mg Tablet PO 650 mg Q6H PRN Administration Headache/Pain Mild Scale (1-3) Al Hydroxide/Mg Hydroxide 30 ml 04/04/20 21:36 Magnesium Hydrox/Alum Hydrox 30 Ml Oral.Susp PO Q6H PRN Heartburn/Nausea Donepezil HCl 10 mg 04/16/20 21:00 05/10/20 20:14 Donepezil Hcl 5 Mg Tablet PO 10 mg BEDTIME HASMUKH Administration Escitalopram Oxalate 5 mg 04/08/20 09:00 05/11/20 08:37 Escitalopram Oxalate 5 Mg Tablet PO 5 mg DAILY HASMUKH Administration Hydroxyzine HCl 25 mg 04/04/20 21:36 04/14/20 21:21 Hydroxyzine Hcl 25 Mg Tablet PO 25 mg BEDTIME PRN Administration Anxiety Magnesium Hydroxide 30 ml 04/04/20 21:36 Milk Of Magnesia 30 Ml Oral.Susp PO DAILY PRN Constipation Trazodone HCl 50 mg 04/04/20 21:36 Trazodone Hcl 50 Mg Tablet PO BEDTIME PRN Insomnia Allergies Allergies Allergy/AdvReac Type Severity Reaction Status Date / Time No Known Allergies Allergy Verified 04/02/20 20:21 [No Known Allergies*] Assessment & Plan Assessment & Plan (1) Atypical depressive disorder: Status: Acute Code(s): F32.89 - Other specified depressive episodes Assessment and Plan: continue Lexapro (2) Cognitive impairment: Status: Acute Code(s): R41.89 - Other symptoms and signs involving cognitive functions and awareness Assessment and Plan: continue Aricept Greater than 50% of the session was spent on counseling and/or coordination of care
[2020-05-11 07:18] VITALS: BP 142/80; PULSE 77; TEMP 36.2
[2020-05-11] MEDS: Escitalopram Oxalate 5 MG TABLET PO (08:37)
[2020-05-11 08:40] VITALS: O2SAT 96
[2020-05-11] MEDS: Acetaminophen 325 MG TABLET 650 MG PO (09:55)
[2020-05-11 18:00] VITALS: BP 157/78; PULSE 97; TEMP 36.6
[2020-05-11] MEDS: Donepezil HCl 5 MG TABLET 10 MG PO (20:46)
--- NOTE | 2020-05-11 21:21 | HO.PSYCHPN ---
Subjective Subjective Date of Service: 05/11/20 Reason For Visit: depression si hi Interim History: Vitals reviewed Labs reviewed Pt seen, chart reviewed and case discussed with nursing staff Pt is pleasant, calm and cooperative on approach. He says he's feeling better since admission; he does not know why but he's glad for it. Pt denies complaints. Staff reports pt is med adherent, social in milue, eating well and safe on the unit without behavioral incident. Medication Compliance: Yes Side effects from medications: No Mental Status Exam Mental Status Exam Patient Appearance: Appropriate and Unkempt Patient Orientation: Person, Place, Time and Situation Level of Consciousness: Awake and Appropriate Patient Behavior: Appropriate and Good Eye Contact Mood Description: Calm and Anxious Affect Description: Calm and Anxious Ability to Follow Directions: Good Speech Pattern: Clear and Appropriate Thought Process: Intact and Linear Thought Content: positive for Intact and positive for Goal Oriented Judgement: Fair Judgement and Insight: intact Diagnostics Vital Signs (24Hr): Vital Signs - 24 hr 05/11/20 07:18 05/11/20 08:40 05/11/20 18:00 Temperature 97.1 F 97.8 F Pulse Rate 77 97 Blood Pressure 142/80 H 157/78 H Pulse Oximetry 96 Body Mass Index 26.7 Labs Results: 04/02/20 18:46 04/05/20 07:59 Medications Medications Current Medications Generic Name Dose Route Start Last Admin Trade Name Freq PRN Reason Stop Dose Admin Acetaminophen 650 mg 04/04/20 21:36 05/11/20 09:55 Acetaminophen 325 Mg Tablet PO 650 mg Q6H PRN Administration Headache/Pain Mild Scale (1-3) Al Hydroxide/Mg Hydroxide 30 ml 04/04/20 21:36 Magnesium Hydrox/Alum Hydrox 30 Ml Oral.Susp PO Q6H PRN Heartburn/Nausea Donepezil HCl 10 mg 04/16/20 21:00 05/11/20 20:46 Donepezil Hcl 5 Mg Tablet PO 10 mg BEDTIME HASMUKH Administration Escitalopram Oxalate 5 mg 04/08/20 09:00 05/11/20 08:37 Escitalopram Oxalate 5 Mg Tablet PO 5 mg DAILY HASMUKH Administration Hydroxyzine HCl 25 mg 04/04/20 21:36 04/14/20 21:21 Hydroxyzine Hcl 25 Mg Tablet PO 25 mg BEDTIME PRN Administration Anxiety Magnesium Hydroxide 30 ml 04/04/20 21:36 Milk Of Magnesia 30 Ml Oral.Susp PO DAILY PRN Constipation Trazodone HCl 50 mg 04/04/20 21:36 Trazodone Hcl 50 Mg Tablet PO BEDTIME PRN Insomnia Allergies Allergies Allergy/AdvReac Type Severity Reaction Status Date / Time No Known Allergies Allergy Verified 04/02/20 20:21 [No Known Allergies*] Assessment & Plan Pt stable No changes to current treatment plan
--- NOTE | 2020-05-12 | XR_ITS ---
EXAMINATION: XR CHEST CLINICAL INFORMATION: Vomiting COMPARISON: 04/07/2020 TECHNIQUE: Frontal view of the chest was obtained. FINDINGS: Lung volumes are symmetric. No focal consolidation is seen. No evidence of pneumothorax, pleural effusion, or pulmonary edema. The cardiomediastinal contour is unremarkable. No acute osseous findings are seen. XR/XR chest 1V IMPRESSION: No acute cardiopulmonary findings.
--- NOTE | 2020-05-12 | CT_ITS ---
EXAMINATION: CT HEAD WITHOUT CONTRAST CLINICAL INFORMATION: Seizure. Evaluate for stroke. COMPARISON: Previous head CT scans most recent September 2019 and brain MRI March 2020 TECHNIQUE: Contiguous axial imaging was performed from the skull base to vertex without intravenous administration of contrast. This CT examination was performed using dose optimization techniques as appropriate, variously including the following: *Automated exposure control *Adjustment of mA and/or kV according to patient size (this includes techniques or standardized protocols for targeted exams where dose is matched to indication/reason for exam; i.e. extremities or head) *Use of iterative reconstruction technique DLP: 694 mGy-cm FINDINGS: There is no evidence of an extra-axial collection. There is no evidence of intra-axial or extra-axial hemorrhage. The ventricles and extra-axial CSF spaces are appropriate. Franco-white matter differentiation is normal. 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 No mass, mass effect or acute infarct is seen. Review at bone windows is unremarkable. Visualized paranasal sinuses, mastoid air cells and middle ears are clear. CT/CT head/brain wo con IMPRESSION: No acute findings. 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
[2020-05-12 03:30] VITALS: BP 150/58; PULSE 107; RESP 20; TEMP 36.5; O2SAT 96
[2020-05-12 03:40] VITALS: BP 150/58; PULSE 101; RESP 22; O2SAT 93
--- NOTE | 2020-05-12 03:56 | PM.EVENT ---
Event Note Date of Service: 05/12/20 Event Note: a rapid response was called on this patient after witnessed seizure by nursing staff. One of the nursing staff went in to check patient's vital and found him to have shaking of the arms and legs. On my arrival patient was snoring very loudly very difficult to arouse, responsive to pain stimuli but otherwise lethargic. While examining the patient he vomited with no evidence of aspiration. Satting 92% on room air Will order chest x-ray to rule out aspiration pneumonia Given the witnessed seizure-like activity will administer 500 mg of IV Keppra Neurology consulted
[2020-05-12 04:00] VITALS: BP 158/58; PULSE 107; RESP 18; O2SAT 94
--- NOTE | 2020-05-12 05:22 | PC.NURSE ---
At approximately 0330, t/w was performing safety checks and observed the patient to presenting with signs of a tonic-colonic seizure. Pt was rigid with arms twitching; salivating; not responding to verbal/physical attempts to arouse. Pt was rolled to a lateral position. Nursing microbiology supervisor entered the room and called a rapid response. Pt then vomited a small amount of bilious fluid. Respirations were 20 and O293%. BP was elevated 158/85 and pulse 1010. Suction was performed and pt received 2L O2 via nasal canula. Pt still unresponsive. Hospitalist ordered chest x-ray for aspiration, IV inserted and Ativan 0.125 mg IVP admin. Second set vital signs documented. 0400 Pt O2 96% and O2 removed; O2 94 % room air. 0445 Keppra 500 mg IV admin over 16 min. 0400 Pt responsive to verbal stimuli and A&O x3. Pt unsteady gait and drowsy. Incontinent to urine. Pt received an xray, was changed, and resting in bed. Pt placed on close observation. Will continue to monitor and report.
[2020-05-12 06:00] VITALS: BP 90/51; PULSE 91; TEMP 36.7
[2020-05-12] MEDS: LORazepam 2 MG/ML VIAL IVPUSH (06:22)
[2020-05-12] MEDS: Escitalopram Oxalate 5 MG TABLET PO (09:38)
[2020-05-12] MEDS: Acetaminophen 325 MG TABLET 650 MG PO (09:38)
[2020-05-12 10:32] VITALS: BP 107/55; PULSE 87; TEMP 36.9; O2SAT 96
--- NOTE | 2020-05-12 10:32 | P.EN_ITS ---
Event Note Date of Service: 05/12/20 Event Note: Hospitalist Follow-up Asked to see the patient to evaluate for stroke / ? seizure. Patient had a rapid response called on him overnight where there was a rapid repose was called for what was reported as seizure activity. 1 dose of keppra and ativan were apparently given. This AM [facility] staff asked hospitalist to f/u for further evaluation. Patients seen and examined on the floor. He denies history of seizure and in fact reports he doesnt know what seizures are. He denies have previous cva (MRI from last month showed an or cerebellar infarct). Patient is annoyed by any medical questioning but does reluctantly answer. He denies any focal weakness. Denies any numbness. Not the greatest historian in terms of medical history. His RN, Kaia tells me that he appears to be at his baseline other than being a bit more irritable. Exam Vital - 107/55 - pulse 87 - Temp 98.4 - O2 96 on RA General - no acute distress, appears comfortable but irritable CVS - s1s2, RRR Lungs - no distress Abd - soft and not tender Neuro - Awake and alert, oriented to self, place and time; Strength 5/5 in all exremities, no Facial asymmetry; abnormal gait (told by [facility] staff that is his baseline). A/P 69 yo M admitted on the psych floor for depression with SI/HI who had a witn essed seizure on the psych floor over night. Was treated at that time with keppra and ativan. Asked to see the patient this AM in follow up for stroke / ? seizure. He does not appear to have any acute neurological changes to suggest acute stroke. CT brain does not show acute findings, but does show chronic cerebellar infact. He has been given keppra 500 mg overnight. Neurology has been consulted. Will check basic labs -- none checked in > 1 month. Consult neurology -- may need further evaluation of seizures with EEG. Can consider continuing keppra, but since neurology is consulted I will defer to them. Additionally his MRI last month shows an old infarct -- if no contraindications, would give baby aspirin 81mg. Labs from last month reveal and elevated LDL (134) and A1C of 6.0. If no con traindication would recommend Lipitor 40mg and can consider starting Metformin 500mg q daily for pre-diabetes. Please re-consult if needed.
[2020-05-12 11:00] LABS: Hematocrit 40.3 % (42-52); Hemoglobin 13.5 g/dl (14.0-18.0); Mean Corpuscular HGB Conc 33.5 g/dl (31.0-36.0); Mean Corpuscular Hemoglobin 31.2 pg (27.0-33.0); Mean Corpuscular Volume 93.1 fL (80-98); Mean Platelet Volume 9.5 fL (9.4-12.4); Platelet Count 171 X10*3/uL (160-400); Red Blood Count 4.33 X10*6/uL (4.60-5.80); Red Cell Distribution Width 12.1 % (11.0-16.0); White Blood Count 8.5 X10*3/uL (4.8-10.8)
[2020-05-12 11:21] LABS: Anion Gap 12 (12-20); Blood Urea Nitrogen 13 mg/dL (9-16); Calcium 8.4 mg/dL (8.4-10.2); Carbon Dioxide 27 mmol/L (22-29); Chloride 104 mmol/L (96-108); Creatinine Clr Calc Pharmacy 86.4; Estimated Glomerular Filt Rate > 60; Glucose Random 124 mg/dL (60-115); Sodium 139 mmol/L (135-145)
--- NOTE | 2020-05-12 15:24 | PC.NURSE ---
THIS CIRCUIT TESTER CORTEXTED DR MAR AT 0830 THIS AM AFTER CONTACTING NURSING RAILROAD POLICE OFFICER. DR MAR INFORMED OF POSSIBLE SEIZURE ACTIVITY AT 0330 AND REQUEST FOR CVA ASSESSMENT REQUESTED. DR MAR ORDERED HEAD CT SCAN AND STATED HOSPITALIST WOULD BE UP TO EVALUATE. GRASPS STRONG FOR THIS CIRCUIT TESTER, SMILE SYMMETRICAL, ABLE TO SPEAK CLEARLY. IRRITABILITY NOTED DURING INTERACTIONS WITH STAFF, QUESTIONING WHAT HAD HAPPENED AND WHAT WAS STAFF'S INVOLVEMENT. PT OFF UNIT TO CT SCAN AT 0855 AND RETURNED AT [address] CANALES UP ON UNIT TO EVALUATE AT 1004. DR REVIEWED RESULTS OF CT SCAN AND ORDERED LABS AND REVIEWED RESULTS. DR ROCKWELL CALLED FOR NEUROLOGY CONSULT PER ORDER AND STATED HE WOULD BE UP TOMORROW FOR EVAL. DR ROCKWELL WANTED CT SCAN AND EEG AWAKE ORDERED. INFORMED CT SCAN DONE AND INFORMED OF RESULTS. EEG AWAKE ORDERED FOR TOMORROW PER DR ROCKWELL. PT C/O HEADACHE #10 ON SCALE 1-10(10 WORSE) WITH NO RELIEF FROM TYLENOL 650 MG PO GIVEN THIS AM. DR ROCKWELL DOES NOT WANT MEDS ORDERED PRIOR TO EEG TOMORROW. IV ADAPTER REMOVED FROM RIGHT FOREARM, TOLERATED WELL.
[2020-05-12 18:00] VITALS: PULSE 95; TEMP 37
--- NOTE | 2020-05-12 18:34 | HO.PSYCHPN ---
Subjective Subjective Date of Service: 05/12/20 Reason For Visit: depression si hi Interim History: Overnight pt had seizure. Rapid response called and pt treated. CT head unremarkable. Pt asleep when singer songwriter approached. Neuro consult placed. Hospitalist Dr. Wilson following. Medication Compliance: Yes Mental Status Exam Mental Status Exam Narrative: Pt asleep. MSE deferred. Diagnostics Vital Signs (24Hr): Vital Signs - 24 hr 05/12/20 03:30 05/12/20 03:40 05/12/20 04:00 Temperature 97.7 F Pulse Rate 107 H 101 H 107 H Respiratory Rate 20 22 H 18 Blood Pressure 150/58 H 150/58 H 158/58 H Pulse Oximetry 96 93 94 05/12/20 06:00 05/12/20 10:32 Temperature 98.1 F 98.4 F Pulse Rate 91 87 Respiratory Rate Blood Pressure 90/51 L 107/55 L Pulse Oximetry 96 Body Mass Index 26.7 Labs Results: 05/12/20 10:49 05/12/20 10:49 Labs: Laboratory Results - last 48 hr 05/12/20 05/12/20 10:49 10:49 WBC 8.5 RBC 4.33 L Hgb 13.5 L Hct 40.3 L MCV 93.1 MCH 31.2 MCHC 33.5 RDW 12.1 Plt Count 171 MPV 9.5 Absolute Nucleated RBC 0.000 Nucleated RBC % (auto) 0.0 Sodium 139 Potassium 4.0 Chloride 104 Carbon Dioxide 27 Anion Gap 12 BUN 13 Creatinine 0.78 Estim Creat Clear Calc 86.4 Estimated GFR > 60 Random Glucose 124 H Calcium 8.4 Imaging Radiology Impressions: CT/CT head/brain wo con IMPRESSION: No acute findings. 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 Medications Medications Current Medications Generic Name Dose Route Start Last Admin Trade Name Freq PRN Reason Stop Dose Admin Acetaminophen 650 mg 04/04/20 21:36 05/12/20 09:38 Acetaminophen 325 Mg Tablet PO 650 mg Q6H PRN Administration Headache/Pain Mild Scale (1-3) Al Hydroxide/Mg Hydroxide 30 ml 04/04/20 21:36 Magnesium Hydrox/Alum Hydrox 30 Ml Oral.Susp PO Q6H PRN Heartburn/Nausea Donepezil HCl 10 mg 04/16/20 21:00 05/11/20 20:46 Donepezil Hcl 5 Mg Tablet PO 10 mg BEDTIME HASMUKH Administration Escitalopram Oxalate 5 mg 04/08/20 09:00 05/12/20 09:38 Escitalopram Oxalate 5 Mg Tablet PO 5 mg DAILY HASMUKH Administration Hydroxyzine HCl 25 mg 04/04/20 21:36 04/14/20 21:21 Hydroxyzine Hcl 25 Mg Tablet PO 25 mg BEDTIME PRN Administration Anxiety Magnesium Hydroxide 30 ml 04/04/20 21:36 Milk Of Magnesia 30 Ml Oral.Susp PO DAILY PRN Constipation Trazodone HCl 50 mg 04/04/20 21:36 Trazodone Hcl 50 Mg Tablet PO BEDTIME PRN Insomnia Allergies Allergies Allergy/AdvReac Type Severity Reaction Status Date / Time No Known Allergies Allergy Verified 04/02/20 20:21 [No Known Allergies*] Assessment & Plan Pt with new onset seizure Hospitalist following; will defer to their recs EEG pending
--- NOTE | 2020-05-12 18:45 | P.CNNE_ITS ---
History of Present Illness Data of Consult Service Date: 05/12/20 Primary Care Provider: Unknown Physician HPI Reason for consult: New onset witnessed generalized tonic-clonic seizure This is a 69-year-old man with a history of depression cognitive impairment and atypical depressive disorder who was admitted to approximately 35 days earlier and has had some atypical features. He was very upset with his sister and is better but is very annoyed by the noise on the floor and says that he wants to shoot up the place and destroyed. He did not want to be bothered too much with questioning and is a poor historian. He denies ever having us had a seizure and is not aware of having had a seizure while in the hospital. He has been in the hospital for 35 days so there is no question of any drug withdrawal. She has not been on any medications that might lower his seizure threshold. He is on escitalopram 5 mg a day. He does not abuse drugs as best as we can determine. There is no known history of significant head trauma. He had an MRI of the brain in March which was unremarkable except for a small old left cerebellar infarct. Last night he was witnessed to have a generalized tonic- clonic seizure in bed with foaming at the mouth are eyes rolled up and shaking all over. He was also incontinent of urine but did not bite his tongue. Afterwards he was groggy sleepy and confused. He was given Ativan and 500 mg of Keppra. He had a CT scan of the head of the bed today which was negative except for the previously noted old small left cerebellar infarct which apparently is asymptomatic since he is not aware of it. He specifically denies any previous seizures. Review of Systems Eyes: Eyes: Reports no additional eye complaints ENT: Reports system reviewed and no additional complaints, except as documented and Reports Normal hearing present Cardiovascular: Cardiovascular: Reports no additional cardiovascular complaints Respiratory: Respiratory: Reports no additional respiratory complaints Gastrointestinal: Gastrointestinal: Reports no additional gastrointestinal complaints Genitourinary: Genitourinary: Reports no additional male genitourinary complaints Musculoskeletal: Musculoskeletal: Reports no additional musculoskeletal complaints Integumentary/Breasts: Skin/Breast: Reports system reviewed and no additional complaints, except as docu Neurologic: Reports as per HPI and Reports Normal hearing present Psychiatric: Psychiatric: Reports as per HPI Endocrine: Endocrine: Reports no additional endocrine complaints Hematologic/Lymphatic: Hematologic/Lymphatic: Reports no additional hematologic/lymphatic complaints Allergic/Immunologic: Allergic/Immunologic: Reports no additional allergic/immunologic complaints PMFSH Family History Family History Mother Heart disease Father Hx of colostomy Surgical History Surgical History History of amputation of finger of right hand Social History Social History (Updated 04/05/20 @ 16:21 by Linus Ken RN) Household Members: Family Housing: House Alcohol intake: unknown Smoking Status: Never smoker Second Hand Smoke Exposure: No service: No Sexual orientation: Straight/Heterosexual Meds Allergies Allergy/AdvReac Type Severity Reaction Status Date / Time No Known Allergies Allergy Verified 04/02/20 20:21 [No Known Allergies*] Home Medications Medication Instructions Recorded Confirmed Type No Known Home Meds 04/02/20 04/02/20 History Physical Exam Vital Signs: Vital Signs: Last Vital Signs Temp 98.4 F 05/12/20 10:32 Pulse 87 05/12/20 10:32 Resp 18 05/12/20 04:00 BP 107/55 L 05/12/20 10:32 Pulse Ox 96 05/12/20 10:32 Body Mass Index 26.7 Const: General: cooperative, comfortable, no acute distress, well developed, alert and awake Nutritional Appearance: well nourished Orientation/consciousness: oriented to person, oriented to place and oriented to time Limitations: no limitations HENMT: Head: Yes normal to inspection, Yes normocephalic and Yes atraumatic Ears: hearing grossly normal bilaterally General nose exam: Normal external nose present Face and sinus: Yes normal facial exam Mouth: Normal oral and palatal mucosa present Eyes: General: appearance normal, both eyes and all related structures Visual Hu: normal visual hu by confrontation Alignment and Position: alignment normal Periorbital: periorbital findings normal Eyelids: Yes eyelids normal Conjunctivae: conjunctivae normal Sclerae: sclerae normal Corneas: corneas normal Pupils: Equal, round and reactive pupils present and Pupil accommodation reflex normal EOM: EOMs intact bilaterally Direct Ophthalmoscopy: normal light reflex Neck: Neck: Yes normal visual inspection, Yes full ROM and Yes no meningeal signs Thyroid: Thyroid normal Carotids: normal carotid upstroke and bounding pulses Chest: Chest palpation & inspection: normal inspection of the chest Resp: Effort & Inspection: normal respiratory effort Auscultation: clear to auscultation bilaterally Cardio: Rate: regular rate Rhythm: regular rhythm Heart sounds: S1 normal heart sound present and S2 normal heart sound present Peripheral pulses: Peripheral pulses 2+ throughout GI: Inspection: Yes normal to inspection Percussion: Yes normal to percussion Auscultation: normal bowel sounds Rectal Exam - Male: Yes deferred Back/Spine/Pelvis: Cervical Spine: normal cervical lordosis and cervical ROM normal Thoracic/Lumbar Spine: thoracic and lumbar spine normal to inspection Skin: General skin exam: no rashes or lesions noted Neuro: General: oriented to person, oriented to place, oriented to time, gait normal, tone normal, moves all extremities, Normal light touch and pain sensation, no meningeal signs, no focal motor deficits, CN's II-XI intact bilaterally, normal sensation to monofilament and deep tendon reflexes 2+ bilaterally Cranial nerves: Yes CN's II-XII intact bilaterally, Yes Equal, round and reactive pupils present, Yes Bilaterally intact EOM present, Yes Nystagmus not present, Yes Normal facial strength present, Yes Midline tongue present, Yes Normal gag reflex present, Yes Symmetric palate elevation present, Yes Normal hearing present and Yes Ability to bilaterally rotate head present Cognition (Neuro): normal cognition Speech: Other speech findings present (Neuro) Gait exam (Neuro): Normal gait present Motor exam (neuro): 5/5 mot or strength present throughout, Pronator motor function not present, no tremor noted, no asterixis, Motor fasciculations not present, Normal motor muscle tone present throughout and Motor abnormalities not present Sensory Exam: Bilaterally intact graphesthesia Deep tendon reflexes (DTR's): Right triceps reflex intensity grade: 2+, Left triceps reflex intensity grade: 2+, Rt Biceps (C5, C6): 2+, Left biceps reflex intensity grade: 2+, Right brachioradialis reflex intensity grade: 2+, Left brachioradialis reflex intensity grade: 2+, Right patellar reflex intensity grade: 2+, Left patellar reflex intensity grade: 2+, Right ankle reflex intensity grade: 2+ and Left ankle reflex intensity grade: 2+ Plantar Reflex Responses: downgoing: right, left and bilateral Coordination: [id number] test normal, [id number] test normal, tandem gait normal and Romberg test negative Pupils: Normal pupillary reactivity/response: bilateral Extrem: General: Yes normal to inspection, Yes normal exam except as noted and Yes no pedal edema Psych: Appearance: grossly normal Mental Status: mental status grossly normal Speech and movement: Normal speech and movement present and Clear speech present Affect: normal affect Attitude: cooperative Thought process: Normal thought process present Results Labs CBC & Chem 7: 05/12/20 10:49 05/12/20 10:49 Labs: Short CBC 05/12/20 Range/Units 10:49 WBC 8.5 (4.8-10.8) X10*3/uL Hgb 13.5 L (14.0-18.0) g/dl Hct 40.3 L (42-52) % Plt Count 171 (160-400) X10*3/uL BMP 05/12/20 10:49 Sodium 139 Potassium 4.0 Chloride 104 Carbon Dioxide 27 BUN 13 Creatinine 0.78 Calcium 8.4 Assessment and Plan (1) Atypical depressive disorder: Status: Acute continue Lexapro (2) Cognitive impairment: Status: Acute continue Aricept (3) Seizure disorder: Problem details: New onset of seizure disorder with a witnessed generalized seizure. No apparent cause for the seizure no pharmacological reason for the seizure. No history of substance abuse or drug withdrawal Status: Acute I would hold off continuing his antiseizure medication at this time. Would recommend a waking EEG with further recommendations to follow. If he has recurrence of seizure I would start him on Keppra 750 mg orally b.i.d.. Procedures Abscess I/D Date of Service: 05/12/20
[2020-05-12] MEDS: Donepezil HCl 5 MG TABLET 10 MG PO (20:34)
--- NOTE | 2020-05-12 20:35 | PC.NURSE ---
Aricept held, patient will have EEG Wednesday05/13/2020.
[2020-05-13 06:45] VITALS: BP 102/60; PULSE 79; RESP 16; TEMP 36.8
[2020-05-13] MEDS: Escitalopram Oxalate 5 MG TABLET PO (09:07)
[2020-05-13] MEDS: Acetaminophen 325 MG TABLET 650 MG PO (09:07)
[2020-05-13 12:27] VITALS: BP 126/66; PULSE 83; RESP 16; TEMP 36.7; O2SAT 97
--- NOTE | 2020-05-13 13:15 | EEG_ITS ---
The waking background activity consists of a well-defined moderate voltage, 9 to 10 hertz posterior alpha frequency that attenuates well with eye opening, while low-voltage fast frequencies predominate anteriorly. Photic stimulation is without activation. Hyperventilation was omitted. No focal, lateralizing, or paroxysmal discharges seen. IMPRESSION: This waking EEG is within normal limits. MD VILMA Pozo/MARIO / [id number]
--- NOTE | 2020-05-13 15:18 | PC.NURSE ---
IRRITABLE THIS SHIFT, C/O OTHER PT'S VOICES AND ACTIONS. IRRITABLE WITH STAFF'S CONCERNS RE: POSSIBLE SEIZURE YESTERDAY. DOWN TO EEG AT 1345 AND RETURNED AT 1455. VS TEMP 98.0-83-16 126/66 O2 SAT 97% RM AIR.
[2020-05-13 16:15] VITALS: BP 114/57; PULSE 83; TEMP 36.9
[2020-05-13] MEDS: Donepezil HCl 5 MG TABLET 10 MG PO (20:44)
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
[2020-05-13] MEDS: Divalproex Sodium ER 250 MG TAB.ER.24H PO (22:55)
[2020-05-14 06:05] VITALS: BP 120/72; PULSE 90; RESP 18; TEMP 36.8; O2SAT 96
[2020-05-14] MEDS: Acetaminophen 325 MG TABLET 650 MG PO (08:15)
[2020-05-14] MEDS: Escitalopram Oxalate 5 MG TABLET PO (08:16)
[2020-05-14 18:00] VITALS: BP 144/74; PULSE 86; TEMP 36.2
--- NOTE | 2020-05-14 21:53 | HO.PSYCHPN ---
Subjective Subjective Date of Service: 05/15/20 Reason For Visit: depression si hi Subjective Notes: Conditional Voluntary Interim History: pt much calmer less agitated social ruminating re recent behavoir Medication Compliance: Yes Attending Groups: Intermittent Review of Systems Reports Normal hearing present Reports as per HPI and Reports Normal hearing present Mental Status Exam Mental Status Exam Patient Appearance: Disheveled Patient Orientation: Person, Place and Situation Level of Consciousness: Restless Patient Behavior: Appropriate and Anxious Mood Description: Nervous and Apprehensive Affect Description: Anxious and Nervous Patient Cognition Impaired: Yes Ability to Follow Directions: Fair Speech Pattern: Perseverating Memory Description: Episodic Impaired Hallucinations: None Delusions: Not Present Thought Process: Distracted Thought Content: positive for Circumstantial Depressive Symptoms: Increased Anxiety and Feelings of Guilt Diagnostics Vital Signs (24Hr): Vital Signs - 24 hr 05/14/20 06:05 05/14/20 18:00 Temperature 98.3 F 97.1 F Pulse Rate 90 86 Respiratory Rate 18 Blood Pressure 120/72 144/74 H Pulse Oximetry 96 Body Mass Index 26.7 Labs Results: 05/12/20 10:49 05/12/20 10:49 Imaging Radiology Impressions: ITS Impressions Chest X-Ray 05/12/20 00:00 IMPRESSION: No acute cardiopulmonary findings. Head CT 05/12/20 00:00 IMPRESSION: No acute findings. 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 Medications Medications Current Medications Generic Name Dose Route Start Last Admin Trade Name Freq PRN Reason Stop Dose Admin Acetaminophen 650 mg 04/04/20 21:36 05/14/20 08:15 Acetaminophen 325 Mg Tablet PO 650 mg Q6H PRN Administration Headache/Pain Mild Scale (1-3) Al Hydroxide/Mg Hydroxide 30 ml 04/04/20 21:36 Magnesium Hydrox/Alum Hydrox 30 Ml Oral.Susp PO Q6H PRN Heartburn/Nausea Divalproex Sodium 250 mg 05/13/20 21:30 05/13/20 22:55 Divalproex Sodium Er 250 Mg Tab.Er.24h PO 250 mg BEDTIME HASMUKH Administration Donepezil HCl 10 mg 04/16/20 21:00 05/13/20 20:44 Donepezil Hcl 5 Mg Tablet PO 10 mg BEDTIME HASMUKH Administration Escitalopram Oxalate 5 mg 04/08/20 09:00 05/14/20 08:16 Escitalopram Oxalate 5 Mg Tablet PO 5 mg DAILY HASMUKH Administration Hydroxyzine HCl 25 mg 04/04/20 21:36 04/14/20 21:21 Hydroxyzine Hcl 25 Mg Tablet PO 25 mg BEDTIME PRN Administration Anxiety Magnesium Hydroxide 30 ml 04/04/20 21:36 Milk Of Magnesia 30 Ml Oral.Susp PO DAILY PRN Constipation Trazodone HCl 50 mg 04/04/20 21:36 Trazodone Hcl 50 Mg Tablet PO BEDTIME PRN Insomnia Allergies Allergies Allergy/AdvReac Type Severity Reaction Status Date / Time No Known Allergies Allergy Verified 04/02/20 20:21 [No Known Allergies*] Assessment & Plan Assessment & Plan (1) Cognitive impairment: Status: Acute Code(s): R41.89 - Other symptoms and signs involving cognitive functions and awareness (2) Atypical depressive disorder: Status: Acute Code(s): F32.89 - Other specified depressive episodes (3) Seizure disorder: Status: Acute Code(s): G40.909 - Epilepsy, unspecified, not intractable, without status epilepticus Assessment and Plan: depakote inc 500 mg hs ck for oversedation d/c planning Greater than 50% of the session was spent on counseling and/or coordination of care Reason for contiued inpatient stay Substantial Risk for: rapid decompensation
[2020-05-14] MEDS: Donepezil HCl 5 MG TABLET 10 MG PO (22:09)
[2020-05-14] MEDS: Divalproex Sodium ER 250 MG TAB.ER.24H PO (22:09)
[2020-05-15 06:45] VITALS: BP 119/75; PULSE 80; RESP 16; TEMP 36.7; O2SAT 96
[2020-05-15] MEDS: Acetaminophen 325 MG TABLET 650 MG PO (08:25)
[2020-05-15] MEDS: Escitalopram Oxalate 5 MG TABLET PO (08:25)
[2020-05-15 18:00] VITALS: BP 120/63; PULSE 91; TEMP 36.2
[2020-05-15] MEDS: Divalproex Sodium ER 500 MG TAB.ER.24H PO (19:11)
[2020-05-15] MEDS: Donepezil HCl 5 MG TABLET 10 MG PO (20:17)
--- NOTE | 2020-05-15 21:22 | HO.PSYCHPN ---
Subjective Subjective Date of Service: 05/15/20 Reason For Visit: depression si hi Interim History: pt much calmer tolerating depakote doing ok not aggressive no sz activity Review of Systems Reports Normal hearing present Reports as per HPI and Reports Normal hearing present Mental Status Exam Mental Status Exam Narrative: Pt asleep. MSE deferred. Patient Appearance: Disheveled Patient Orientation: Person, Place and Situation Level of Consciousness: Restless Patient Behavior: Appropriate and Anxious Mood Description: Nervous and Apprehensive Affect Description: Anxious and Nervous Patient Cognition Impaired: Yes Ability to Follow Directions: Fair Speech Pattern: Perseverating Memory Description: Episodic Impaired Diagnostics Vital Signs (24Hr): Vital Signs - 24 hr 05/15/20 06:45 05/15/20 18:00 Temperature 98.1 F 97.2 F Pulse Rate 80 91 Respiratory Rate 16 Blood Pressure 119/75 120/63 Pulse Oximetry 96 Body Mass Index 26.7 Labs Results: 05/12/20 10:49 05/12/20 10:49 Imaging Radiology Impressions: ITS Impressions Chest X-Ray 05/12/20 00:00 IMPRESSION: No acute cardiopulmonary findings. Head CT 05/12/20 00:00 IMPRESSION: No acute findings. 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 Medications Medications Current Medications Generic Name Dose Route Start Last Admin Trade Name Freq PRN Reason Stop Dose Admin Acetaminophen 650 mg 04/04/20 21:36 05/15/20 08:25 Acetaminophen 325 Mg Tablet PO 650 mg Q6H PRN Administration Headache/Pain Mild Scale (1-3) Al Hydroxide/Mg Hydroxide 30 ml 04/04/20 21:36 Magnesium Hydrox/Alum Hydrox 30 Ml Oral.Susp PO Q6H PRN Heartburn/Nausea Divalproex Sodium 500 mg 05/15/20 19:00 05/15/20 19:11 Divalproex Sodium Er 500 Mg Tab.Er.24h PO 500 mg DAILY@1900 HASMUKH Administration Donepezil HCl 10 mg 04/16/20 21:00 05/15/20 20:17 Donepezil Hcl 5 Mg Tablet PO 10 mg BEDTIME HASMUKH Administration Escitalopram Oxalate 5 mg 04/08/20 09:00 05/15/20 08:25 Escitalopram Oxalate 5 Mg Tablet PO 5 mg DAILY HASMUKH Administration Hydroxyzine HCl 25 mg 04/04/20 21:36 04/14/20 21:21 Hydroxyzine Hcl 25 Mg Tablet PO 25 mg BEDTIME PRN Administration Anxiety Magnesium Hydroxide 30 ml 04/04/20 21:36 Milk Of Magnesia 30 Ml Oral.Susp PO DAILY PRN Constipation Trazodone HCl 50 mg 04/04/20 21:36 Trazodone Hcl 50 Mg Tablet PO BEDTIME PRN Insomnia Allergies Allergies Allergy/AdvReac Type Severity Reaction Status Date / Time No Known Allergies Allergy Verified 04/02/20 20:21 [No Known Allergies*] Assessment & Plan Assessment & Plan (1) Cognitive impairment: Status: Acute Code(s): R41.89 - Other symptoms and signs involving cognitive functions and awareness (2) Atypical depressive disorder: Status: Acute Code(s): F32.89 - Other specified depressive episodes (3) Seizure disorder: Status: Acute Code(s): G40.909 - Epilepsy, unspecified, not intractable, without status epilepticus Assessment and Plan: depakote inc 500 mg hs ck for oversedation ck level monitor for sz activity d/c planning Greater than 50% of the session was spent on counseling and/or coordination of care Reason for contiued inpatient stay Substantial Risk for: inability to function and rapid decompensation
[2020-05-16 06:00] VITALS: BP 114/52; PULSE 75; RESP 16; TEMP 36.5; O2SAT 96
[2020-05-16 07:00] VITALS: BMI 27.1
[2020-05-16] MEDS: Escitalopram Oxalate 5 MG TABLET PO (09:41)
--- NOTE | 2020-05-16 13:04 | HO.PSYCHPN ---
Subjective Subjective Date of Service: 05/16/20 Reason For Visit: depression si hi Subjective Notes: Conditional Voluntary Interim History: Juan M is unchanged. He continues to feel well, and is aware of the discharge plan to go to [facility] Medication Compliance: Yes Side effects from medications: No Attending Groups: Yes Review of Systems Acute medical concerns: No Medical Review of Systems: unchanged Review of Systems Reports Normal hearing present Reports as per HPI and Reports Normal hearing present Mental Status Exam Mental Status Exam Patient Appearance: Well Grooomed Patient Orientation: Person, Place and Situation Level of Consciousness: Restless Patient Behavior: Appropriate and Anxious Mood Description: Calm Affect Description: Calm Patient Cognition Impaired: Yes Ability to Follow Directions: Fair Speech Pattern: Perseverating Memory Description: Episodic Impaired Hallucinations: None Delusions: Not Present Thought Content: negative for Suicidal Ideation and negative for Homicidal Ideation Judgement: Poor Diagnostics Vital Signs (24Hr): Vital Signs - 24 hr 05/15/20 18:00 05/16/20 06:00 Temperature 97.2 F 97.7 F Pulse Rate 91 75 Respiratory Rate 16 Blood Pressure 120/63 114/52 L Pulse Oximetry 96 Body Mass Index 26.7 Labs Results: 05/12/20 10:49 05/12/20 10:49 Imaging Radiology Impressions: ITS Impressions Chest X-Ray 05/12/20 00:00 IMPRESSION: No acute cardiopulmonary findings. Head CT 05/12/20 00:00 IMPRESSION: No acute findings. 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 Medications Medications Current Medications Generic Name Dose Route Start Last Admin Trade Name Freq PRN Reason Stop Dose Admin Acetaminophen 650 mg 04/04/20 21:36 05/15/20 08:25 Acetaminophen 325 Mg Tablet PO 650 mg Q6H PRN Administration Headache/Pain Mild Scale (1-3) Al Hydroxide/Mg Hydroxide 30 ml 04/04/20 21:36 Magnesium Hydrox/Alum Hydrox 30 Ml Oral.Susp PO Q6H PRN Heartburn/Nausea Divalproex Sodium 500 mg 05/15/20 19:00 05/15/20 19:11 Divalproex Sodium Er 500 Mg Tab.Er.24h PO 500 mg DAILY@1900 HASMUKH Administration Donepezil HCl 10 mg 04/16/20 21:00 05/15/20 20:17 Donepezil Hcl 5 Mg Tablet PO 10 mg BEDTIME HASMUKH Administration Escitalopram Oxalate 5 mg 04/08/20 09:00 05/16/20 09:41 Escitalopram Oxalate 5 Mg Tablet PO 5 mg DAILY HASMUKH Administration Hydroxyzine HCl 25 mg 04/04/20 21:36 04/14/20 21:21 Hydroxyzine Hcl 25 Mg Tablet PO 25 mg BEDTIME PRN Administration Anxiety Magnesium Hydroxide 30 ml 04/04/20 21:36 Milk Of Magnesia 30 Ml Oral.Susp PO DAILY PRN Constipation Trazodone HCl 50 mg 04/04/20 21:36 Trazodone Hcl 50 Mg Tablet PO BEDTIME PRN Insomnia Allergies Allergies Allergy/AdvReac Type Severity Reaction Status Date / Time No Known Allergies Allergy Verified 04/02/20 20:21 [No Known Allergies*] Assessment & Plan Assessment & Plan (1) Cognitive impairment: Status: Acute Code(s): R41.89 - Other symptoms and signs involving cognitive functions and awareness (2) Seizure disorder: Status: Acute Code(s): G40.909 - Epilepsy, unspecified, not intractable, without status epilepticus Assessment and Plan: CT current treatment plan Greater than 50% of the session was spent on counseling and/or coordination of care Patient educated on: diagnosis and medication risk/benefits Informed Consent: further education needed Reason for contiued inpatient stay Substantial Risk for: rapid decompensation
[2020-05-16 18:00] VITALS: BP 131/70; PULSE 86; TEMP 37; O2SAT 97
[2020-05-16] MEDS: Divalproex Sodium ER 500 MG TAB.ER.24H PO (18:41)
[2020-05-16] MEDS: Donepezil HCl 5 MG TABLET 10 MG PO (21:30)
[2020-05-16] MEDS: Acetaminophen 325 MG TABLET 650 MG PO (23:52)
[2020-05-17 06:57] VITALS: BP 123/80; PULSE 80; TEMP 36.7
[2020-05-17] MEDS: Escitalopram Oxalate 5 MG TABLET PO (09:39)
--- NOTE | 2020-05-17 14:42 | HO.PSYCHPN ---
Subjective Subjective Date of Service: 05/17/20 Reason For Visit: depression si hi Subjective Notes: Conditional Voluntary Interim History: Juan M was sad that a peer whom he had become close to was DC today. He was otherwise in good spirits and had no immediate concerns Medication Compliance: Yes Side effects from medications: No Attending Groups: Yes Review of Systems Acute medical concerns: No Medical Review of Systems: unchanged Review of Systems Reports Normal hearing present Reports as per HPI and Reports Normal hearing present Mental Status Exam Mental Status Exam Patient Appearance: Well Grooomed Patient Orientation: Person, Place and Situation Level of Consciousness: Restless Patient Behavior: Appropriate and Anxious Mood Description: Calm Affect Description: Calm Patient Cognition Impaired: Yes Ability to Follow Directions: Fair Speech Pattern: Perseverating Memory Description: Episodic Impaired Hallucinations: None Delusions: Not Present Thought Content: negative for Suicidal Ideation and negative for Homicidal Ideation Judgement: Poor Diagnostics Vital Signs (24Hr): Vital Signs - 24 hr 05/16/20 18:00 05/17/20 06:57 Temperature 98.6 F 98.0 F Pulse Rate 86 80 Blood Pressure 131/70 123/80 Pulse Oximetry 97 Body Mass Index 27.1 Labs Results: 05/12/20 10:49 05/12/20 10:49 Imaging Radiology Impressions: ITS Impressions Chest X-Ray 05/12/20 00:00 IMPRESSION: No acute cardiopulmonary findings. Head CT 05/12/20 00:00 IMPRESSION: No acute findings. 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 Medications Medications Current Medications Generic Name Dose Route Start Last Admin Trade Name Freq PRN Reason Stop Dose Admin Acetaminophen 650 mg 04/04/20 21:36 05/16/20 23:52 Acetaminophen 325 Mg Tablet PO 650 mg Q6H PRN Administration Headache/Pain Mild Scale (1-3) Al Hydroxide/Mg Hydroxide 30 ml 04/04/20 21:36 Magnesium Hydrox/Alum Hydrox 30 Ml Oral.Susp PO Q6H PRN Heartburn/Nausea Divalproex Sodium 500 mg 05/15/20 19:00 05/16/20 18:41 Divalproex Sodium Er 500 Mg Tab.Er.24h PO 500 mg DAILY@1900 [facility] Administration Donepezil HCl 10 mg 04/16/20 21:00 05/16/20 21:30 Donepezil Hcl 5 Mg Tablet PO 10 mg BEDTIME HASMUKH Administration Escitalopram Oxalate 5 mg 04/08/20 09:00 05/17/20 09:39 Escitalopram Oxalate 5 Mg Tablet PO 5 mg DAILY HASMUKH Administration Hydroxyzine HCl 25 mg 04/04/20 21:36 04/14/20 21:21 Hydroxyzine Hcl 25 Mg Tablet PO 25 mg BEDTIME PRN Administration Anxiety Magnesium Hydroxide 30 ml 04/04/20 21:36 Milk Of Magnesia 30 Ml Oral.Susp PO DAILY PRN Constipation Trazodone HCl 50 mg 04/04/20 21:36 Trazodone Hcl 50 Mg Tablet PO BEDTIME PRN Insomnia Allergies Allergies Allergy/AdvReac Type Severity Reaction Status Date / Time No Known Allergies Allergy Verified 04/02/20 20:21 [No Known Allergies*] Assessment & Plan Assessment & Plan (1) Cognitive impairment: Status: Acute Code(s): R41.89 - Other symptoms and signs involving cognitive functions and awareness Assessment and Plan: CT current treatment plan Greater than 50% of the session was spent on counseling and/or coordination of care Patient educated on: diagnosis and medication risk/benefits Informed Consent: further education needed Reason for contiued inpatient stay Substantial Risk for: inability to function and rapid decompensation
[2020-05-17 16:37] VITALS: BP 146/63; PULSE 96; TEMP 36.5
[2020-05-17] MEDS: Divalproex Sodium ER 500 MG TAB.ER.24H PO (20:52)
[2020-05-17] MEDS: Acetaminophen 325 MG TABLET 650 MG PO (21:32)
[2020-05-17] MEDS: Donepezil HCl 5 MG TABLET 10 MG PO (22:17)
[2020-05-18 06:20] VITALS: BP 112/60; PULSE 79; RESP 18; TEMP 36.7
[2020-05-18 08:09] LABS: Valproate 24.7 mcg/mL (50.0-100.0)
[2020-05-18] MEDS: Escitalopram Oxalate 5 MG TABLET PO (09:10)
--- NOTE | 2020-05-18 13:08 | HO.PSYCHPN ---
Subjective Subjective Date of Service: 05/18/20 Reason For Visit: depression si hi Subjective Notes: Conditional Voluntary Interim History: Juan M was pleasant and engaged. He has no immediate concerns Medication Compliance: Yes Side effects from medications: No Attending Groups: Yes Review of Systems Acute medical concerns: No Medical Review of Systems: unchanged Review of Systems Reports Normal hearing present Reports as per HPI and Reports Normal hearing present Mental Status Exam Mental Status Exam Patient Appearance: Well Grooomed Patient Orientation: Person, Place and Situation Level of Consciousness: Restless Patient Behavior: Appropriate and Anxious Mood Description: Calm Affect Description: Calm Patient Cognition Impaired: Yes Ability to Follow Directions: Fair Speech Pattern: Perseverating Memory Description: Episodic Impaired Hallucinations: None Delusions: Not Present Thought Content: negative for Suicidal Ideation and negative for Homicidal Ideation Judgement: Poor Diagnostics Vital Signs (24Hr): Vital Signs - 24 hr 05/17/20 16:37 05/18/20 06:20 Temperature 97.7 F 98.0 F Pulse Rate 96 79 Respiratory Rate 18 Blood Pressure 146/63 H 112/60 Body Mass Index 27.1 Labs Results: 05/12/20 10:49 05/12/20 10:49 Labs: Laboratory Results - last 48 hr 05/18/20 07:26 Valproic Acid 24.7 L Imaging Radiology Impressions: ITS Impressions Chest X-Ray 05/12/20 00:00 IMPRESSION: No acute cardiopulmonary findings. Head CT 05/12/20 00:00 IMPRESSION: No acute findings. 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 Medications Medications Current Medications Generic Name Dose Route Start Last Admin Trade Name Freq PRN Reason Stop Dose Admin Acetaminophen 650 mg 04/04/20 21:36 05/17/20 21:32 Acetaminophen 325 Mg Tablet PO 650 mg Q6H PRN Administration Headache/Pain Mild Scale (1-3) Al Hydroxide/Mg Hydroxide 30 ml 04/04/20 21:36 Magnesium Hydrox/Alum Hydrox 30 Ml Oral.Susp PO Q6H PRN Heartburn/Nausea Divalproex Sodium 500 mg 05/15/20 19:00 05/17/20 20:52 Divalproex Sodium Er 500 Mg Tab.Er.24h PO 500 mg DAILY@1900 [facility] Administration Donepezil HCl 10 mg 04/16/20 21:00 05/17/20 22:17 Donepezil Hcl 5 Mg Tablet PO 10 mg BEDTIME HASMU[facility] Administration Escitalopram Oxalate 5 mg 10/19/20 09:00 05/18/20 09:10 Escitalopram Oxalate 5 Mg Tablet PO 5 mg DAILY HAS[facility] Administration Hydroxyzine HCl 25 mg 04/04/20 21:36 04/14/20 21:21 Hydroxyzine Hcl 25 Mg Tablet PO 25 mg BEDTIME PRN Administration Anxiety Magnesium Hydroxide 30 ml 04/04/20 21:36 Milk Of Magnesia 30 Ml Oral.Susp PO DAILY PRN Constipation Trazodone HCl 50 mg 04/04/20 21:36 Trazodone Hcl 50 Mg Tablet PO BEDTIME PRN Insomnia Allergies Allergies Allergy/AdvReac Type Severity Reaction Status Date / Time No Known Allergies Allergy Verified 04/02/20 20:21 [No Known Allergies*] Assessment & Plan Assessment & Plan (1) Cognitive impairment: Status: Acute Code(s): R41.89 - Other symptoms and signs involving cognitive functions and awareness Assessment and Plan: CT current plan without change Greater than 50% of the session was spent on counseling and/or coordination of care Patient educated on: diagnosis and medication risk/benefits Informed Consent: further education needed Reason for contiued inpatient stay Substantial Risk for: inability to function and rapid decompensation
[2020-05-18 17:13] VITALS: BP 143/77; PULSE 85; TEMP 36.9
[2020-05-18] MEDS: Divalproex Sodium ER 500 MG TAB.ER.24H PO (20:29)
[2020-05-18] MEDS: Donepezil HCl 5 MG TABLET 10 MG PO (20:30)
[2020-05-19 06:00] VITALS: BP 104/65; PULSE 85; RESP 16; TEMP 36.4; O2SAT 96
[2020-05-19] MEDS: Escitalopram Oxalate 5 MG TABLET PO (08:37)
--- NOTE | 2020-05-19 12:46 | HO.PSYCHPN ---
Subjective Subjective Date of Service: 05/19/20 Reason For Visit: depression si hi Subjective Notes: Conditional Voluntary Interim History: Juan M is feeling frustrated with the rules on the unit and is finding it increasingly difficult to manage on the unit. He is looking forward to going to [facility] when the financial issues are resolved. Medication Compliance: Yes Side effects from medications: No Attending Groups: Yes Review of Systems Acute medical concerns: No Medical Review of Systems: unchanged Review of Systems Reports Normal hearing present Reports as per HPI and Reports Normal hearing present Mental Status Exam Mental Status Exam Patient Appearance: Well Grooomed Patient Orientation: Person, Place and Situation Level of Consciousness: Restless Patient Behavior: Appropriate and Anxious Mood Description: Calm Affect Description: Calm Patient Cognition Impaired: Yes Ability to Follow Directions: Fair Speech Pattern: Perseverating Memory Description: Episodic Impaired Hallucinations: None Delusions: Not Present Thought Content: negative for Suicidal Ideation and negative for Homicidal Ideation Judgement: Poor Diagnostics Vital Signs (24Hr): Vital Signs - 24 hr 05/18/20 17:13 05/19/20 06:00 Temperature 98.5 F 97.6 F Pulse Rate 85 85 Respiratory Rate 16 Blood Pressure 143/77 H 104/65 Pulse Oximetry 96 Body Mass Index 27.1 Labs Results: 05/12/20 10:49 05/12/20 10:49 Labs: Laboratory Results - last 48 hr 05/18/20 07:26 Valproic Acid 24.7 L Imaging Radiology Impressions: ITS Impressions Chest X-Ray 05/12/20 00:00 IMPRESSION: No acute cardiopulmonary findings. Head CT 05/12/20 00:00 IMPRESSION: No acute findings. 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 Medications Medications Current Medications Generic Name Dose Route Start Last Admin Trade Name Freq PRN Reason Stop Dose Admin Acetaminophen 650 mg 04/04/20 21:36 05/17/20 21:32 Acetaminophen 325 Mg Tablet PO 650 mg Q6H PRN Administration Headache/Pain Mild Scale (1-3) Al Hydroxide/Mg Hydroxide 30 ml 04/04/20 21:36 Magnesium Hydrox/Alum Hydrox 30 Ml Oral.Susp PO Q6H PRN Heartburn/Nausea Divalproex Sodium 500 mg 05/15/20 19:00 05/18/20 20:29 Divalproex Sodium Er 500 Mg Tab.Er.24h PO 500 mg DAILY@1900 [facility] Administration Donepezil HCl 10 mg 10/27/20 21:00 05/18/20 20:30 Donepezil Hcl 5 Mg Tablet PO 10 mg BEDTIME [facility] Administration Escitalopram Oxalate 5 mg 04/08/20 09:00 05/19/20 08:37 Escitalopram Oxalate 5 Mg Tablet PO 5 mg DAILY [facility] Administration Hydroxyzine HCl 25 mg 04/04/20 21:36 04/14/20 21:21 Hydroxyzine Hcl 25 Mg Tablet PO 25 mg BEDTIME PRN Administration Anxiety Magnesium Hydroxide 30 ml 04/04/20 21:36 Milk Of Magnesia 30 Ml Oral.Susp PO DAILY PRN Constipation Trazodone HCl 50 mg 04/04/20 21:36 Trazodone Hcl 50 Mg Tablet PO BEDTIME PRN Insomnia Allergies Allergies Allergy/AdvReac Type Severity Reaction Status Date / Time No Known Allergies Allergy Verified 04/02/20 20:21 [No Known Allergies*] Assessment & Plan Assessment & Plan (1) Cognitive impairment: Status: Acute Code(s): R41.89 - Other symptoms and signs involving cognitive functions and awareness Assessment and Plan: CT current treatment plan Greater than 50% of the session was spent on counseling and/or coordination of care Patient educated on: diagnosis and medication risk/benefits Informed Consent: further education needed Reason for contiued inpatient stay Substantial Risk for: rapid decompensation
[2020-05-19 16:56] VITALS: BP 140/72; PULSE 92; TEMP 36.9
[2020-05-19] MEDS: Divalproex Sodium ER 500 MG TAB.ER.24H PO (19:01)
[2020-05-19] MEDS: Donepezil HCl 5 MG TABLET 10 MG PO (21:22)
[2020-05-20 04:30] VITALS: BP 147/80; PULSE 85; RESP 18; TEMP 36.3; O2SAT 98
[2020-05-20] MEDS: Escitalopram Oxalate 5 MG TABLET PO (08:50)
--- NOTE | 2020-05-20 14:24 | PC.NURSE ---
pt continues with difficulties with boundaries. was in doorway of bedroom of the female he has been hanging out with here and staff questioned whether he leaned over and kissed her cheek. they were comfronted by the clinician. unclear if a kiss was exchanged. pt placed on 5 minute checks unlocked br.
[2020-05-20 18:00] VITALS: BP 138/70; PULSE 91; TEMP 36.9
[2020-05-20] MEDS: Divalproex Sodium ER 500 MG TAB.ER.24H PO (20:10)
[2020-05-20] MEDS: Donepezil HCl 5 MG TABLET PO (20:10)
[2020-05-21 06:00] VITALS: BP 114/72; PULSE 76; TEMP 36.2
[2020-05-21] MEDS: Escitalopram Oxalate 10 MG TABLET PO (08:37)
[2020-05-21 10:13] LABS: Glucose Fasting 202 mg/dL (60-99)
[2020-05-21 10:26] LABS: Valproate 31.3 mcg/mL (50.0-100.0)
[2020-05-21] MEDS: Divalproex Sodium ER 250 MG TAB.ER.24H PO (11:32)
[2020-05-21] MEDS: Acetaminophen 325 MG TABLET 650 MG PO (14:27)
[2020-05-21 14:33] LABS: Ammonia 36 umol/L (13-55)
[2020-05-21 14:48] LABS: Alanine Aminotransferase 33 U/L (0-40); Albumin Level 4.2 g/dL (3.5-5.0); Alkaline Phosphatase 58 U/L (39-117); Anion Gap 14 (12-20); Aspartate Amino Transferase 23 U/L (5-37); Bilirubin Total 0.5 mg/dL (0.0-1.0); Blood Urea Nitrogen 14 mg/dL (9-16); Calcium 8.8 mg/dL (8.4-10.2); Carbon Dioxide 26 mmol/L (22-29); Chloride 103 mmol/L (96-108); Creatinine Clr Calc Pharmacy 82.2; Estimated Glomerular Filt Rate > 60; Glucose Random 125 mg/dL (60-115); Potassium 4.7 mmol/l (3.3-5.1); Sodium 138 mmol/L (135-145); Total Protein 7.1 g/dL (6.5-8.0)
[2020-05-21 16:27] VITALS: BP 118/58; PULSE 87; TEMP 36.7
[2020-05-21] MEDS: Divalproex Sodium ER 250 MG TAB.ER.24H 750 MG PO (19:23)
[2020-05-21] MEDS: Donepezil HCl 5 MG TABLET PO (21:35)
--- NOTE | 2020-05-21 22:05 | HO.PSYCHPN ---
Subjective Subjective Date of Service: 05/21/20 Reason For Visit: depression si hi Subjective Notes: Conditional Voluntary Interim History: THE PATIENT HAS BEEN SOMEWHAT MORE REACTIVE AND IRRITABLE. DIFFICULTY WITH BOUNDARIES AND LIMITS TO SOME DEGREE AT TIMES. HAS SOME DIFFICULTY UNDERSTANDING THE LIMITS OF BEING ON A PSYCH UNIT. HE DOES RELATE THIS TO A HISTORY OF CHILDHOOD REJECTION AND TRAUMA LEADING TO ANGER AND IRRITABILITY. Medication Compliance: Yes Attending Groups: Intermittent Review of Systems Reports Normal hearing present Reports as per HPI and Reports Normal hearing present Mental Status Exam Mental Status Exam Patient Appearance: Well Grooomed Patient Orientation: Person, Place and Situation Level of Consciousness: Restless Patient Behavior: Appropriate and Anxious Mood Description: Calm Affect Description: Calm Patient Cognition Impaired: Yes Ability to Follow Directions: Fair Speech Pattern: Perseverating Memory Description: Episodic Impaired Hallucinations: None Delusions: Not Present Thought Content: negative for Suicidal Ideation and negative for Homicidal Ideation Judgement: Poor Diagnostics Vital Signs (24Hr): Vital Signs - 24 hr 05/20/20 04:30 05/20/20 18:00 Temperature 97.4 F 98.5 F Pulse Rate 85 91 Respiratory Rate 18 Blood Pressure 147/80 H 138/70 Pulse Oximetry 98 Body Mass Index 27.1 Labs Results: 05/12/20 10:49 05/21/20 13:56 Imaging Radiology Impressions: ITS Impressions Chest X-Ray 05/12/20 00:00 IMPRESSION: No acute cardiopulmonary findings. Head CT 05/12/20 00:00 IMPRESSION: No acute findings. 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 Medications Medications Current Medications Generic Name Dose Route Start Last Admin Trade Name Freq PRN Reason Stop Dose Admin Acetaminophen 650 mg 04/04/20 21:36 05/17/20 21:32 Acetaminophen 325 Mg Tablet PO 650 mg Q6H PRN Administration Headache/Pain Mild Scale (1-3) Al Hydroxide/Mg Hydroxide 30 ml 04/04/20 21:36 Magnesium Hydrox/Alum Hydrox 30 Ml Oral.Susp PO Q6H PRN Heartburn/Nausea Divalproex Sodium 500 mg 05/15/20 19:00 05/20/20 20:10 Divalproex Sodium Er 500 Mg Tab.Er.24h PO 500 mg DAILY@1900 [facility] Administration Donepezil HCl 5 mg 05/20/20 21:00 05/20/20 20:10 Donepezil Hcl 5 Mg Tablet PO 5 mg BEDTIME HAS[facility] Administration Escitalopram Oxalate 10 mg 05/21/20 09:00 Escitalopram Oxalate 10 Mg Tablet PO DAILY HAS[facility] Hydroxyzine HCl 25 mg 04/04/20 21:36 04/14/20 21:21 Hydroxyzine Hcl 25 Mg Tablet PO 25 mg BEDTIME PRN Administration Anxiety Magnesium Hydroxide 30 ml 04/04/20 21:36 Milk Of Magnesia 30 Ml Oral.Susp PO DAILY PRN Constipation Trazodone HCl 50 mg 04/04/20 21:36 Trazodone Hcl 50 Mg Tablet PO BEDTIME PRN Insomnia Allergies Allergies Allergy/AdvReac Type Severity Reaction Status Date / Time No Known Allergies Allergy Verified 04/02/20 20:21 [No Known Allergies*] Assessment & Plan Assessment & Plan (1) Cognitive impairment: Status: Acute Code(s): R41.89 - Other symptoms and signs involving cognitive functions and awareness Assessment and Plan: INCREASE DEPAKOTE. ESCITALOPRAM IN CASE IT IS CONTRIBUTING TO REACTIVITY START ATENOLOL FOR IRRITABILITY REACTIVITY MONITOR PULSE OF BLOOD PRESSURE (2) Atypical depressive disorder: Status: Acute Code(s): F32.89 - Other specified depressive episodes (3) Seizure disorder: Status: Acute Code(s): G40.909 - Epilepsy, unspecified, not intractable, without status epilepticus Assessment and Plan: DEPAKOTE Greater than 50% of the session was spent on counseling and/or coordination of care Patient educated on: diagnosis and medication risk/benefits Informed Consent: further education needed Reason for contiued inpatient stay Substantial Risk for: rapid decompensation and med/psych decompensation
[2020-05-22] MEDS: hydrOXYzine HCL 25 MG TABLET PO (00:48)
[2020-05-22] MEDS: traZODone HCL 50 MG TABLET PO (00:48)
[2020-05-22 06:00] VITALS: BP 127/78; PULSE 99; TEMP 36.7; O2SAT 98
[2020-05-22 08:52] LABS: Syphilis Screen Nonreactive (Nonreactive)
[2020-05-22 09:28] VITALS: BP 127/78; PULSE 99
[2020-05-22] MEDS: atenoloL 25 MG TABLET PO (09:28)
[2020-05-22] MEDS: Escitalopram Oxalate 5 MG TABLET PO (09:28)
[2020-05-22] MEDS: Memantine HCl 5 MG TABLET PO (12:56)
[2020-05-22] MEDS: LORazepam 0.5 MG TABLET PO (12:56)
[2020-05-22] MEDS: risperiDONE 0.5 MG TABLET PO (12:56)
[2020-05-22 15:13] VITALS: BP 96/54; PULSE 71; O2SAT 99
--- NOTE | 2020-05-22 16:10 | PC.NURSE ---
PT WAS SITTING IN THE KITCHEN WHEN HIS PEER YELLED THAT THIS PT HAD FALLEN FROM THE CHAIR. T/W WENT INTO THE ROOM AND FOUND PT LAYING ON THE FLOOR ON HIS BACK. PT WAS AWAKE AND RESPONSIVE. VSS BP 115/62 P73. PT HAD NO VISIBLE INJURIES AND DENIED ANY PAIN. PT HAD EQUAL STRENGTH IN BILAT LEGS AND HANDS. PT WAS A&O X3 WITH HUMOR. PT SAT UP AND PLACED IN A CHAIR WITH ARMS. MD NOTIFIED AND ORTHO BP'S ORDERED, ORTHOS STABLE. PT FIRST SAID HE DIDN'T KNOW WHAT HAPPENED. PTHAS BEEN SEEKING MORE OF STAFFS ATTENTION AND WAS ASKED IF HE WAS DOING THIS SO STAFF WOULD SPEND MORE TIME WITH HIM AND HE SAID, PROBABLY. PT UP WITH STAFF AND AMBULATED TO THE BR AT HIS REQUEST WITHOUT DIFFICULTY. PT EDUCATED ON THE RISK OF HIS BEHAVIOR. PT AGREED TO CALL OUT FOR STAFF WHEN HE WANTED STAFF TO TALK TO.
[2020-05-22 18:00] VITALS: BP 116/62; PULSE 81; TEMP 36.7
[2020-05-22] MEDS: Divalproex Sodium ER 250 MG TAB.ER.24H 750 MG PO (19:27)
[2020-05-22] MEDS: Acetaminophen 325 MG TABLET 650 MG PO (19:43)
[2020-05-22] MEDS: Donepezil HCl 5 MG TABLET PO (21:38)
--- NOTE | 2020-05-22 21:56 | HO.PSYCHPN ---
Subjective Subjective Date of Service: 05/22/20 Reason For Visit: depression si hi Interim History: patient with periods of irritability dysphoria unclear why he has become more unstable. No clear seizure activity vital signs stable Review of Systems Reports Normal hearing present Reports as per HPI and Reports Normal hearing present Mental Status Exam Mental Status Exam Narrative: Pt asleep. MSE deferred. Patient Appearance: Well Grooomed Patient Orientation: Person, Place and Situation Level of Consciousness: Restless Patient Behavior: Appropriate and Anxious Mood Description: Calm Affect Description: Calm Patient Cognition Impaired: Yes Ability to Follow Directions: Fair Speech Pattern: Perseverating Memory Description: Episodic Impaired Diagnostics Vital Signs (24Hr): Vital Signs - 24 hr 05/22/20 06:00 05/22/20 09:28 05/22/20 15:13 Temperature 98.1 F Pulse Rate 99 99 71 Blood Pressure 127/78 127/78 96/54 L Pulse Oximetry 98 99 05/22/20 18:00 Temperature 98.0 F Pulse Rate 81 Blood Pressure 116/62 Pulse Oximetry Body Mass Index 27.1 Labs Results: 05/12/20 10:49 05/21/20 13:56 Labs: Laboratory Results - last 48 hr 05/21/20 05/21/20 05/21/20 09:42 09:42 13:56 Sodium 138 Potassium 4.7 Chloride 103 Carbon Dioxide 26 Anion Gap 14 BUN 14 Creatinine 0.82 Estim Creat Clear Calc 82.2 Estimated GFR > 60 Random Glucose 125 H Fasting Glucose 202 H D Calcium 8.8 Total Bilirubin 0.5 AST 23 D ALT 33 Alkaline Phosphatase 58 Ammonia Total Protein 7.1 Albumin 4.2 Valproic Acid 31.3 L T.pallidum Ab (EIA) Nonreactive 05/21/20 13:56 Sodium Potassium Chloride Carbon Dioxide Anion Gap BUN Creatinine Estim Creat Clear Calc Estimated GFR Random Glucose Fasting Glucose Calcium Total Bilirubin AST ALT Alkaline Phosphatase Ammonia 36 Total Protein Albumin Valproic Acid T.pallidum Ab (EIA) Imaging Radiology Impressions: ITS Impressions Chest X-Ray 05/12/20 00:00 IMPRESSION: No acute cardiopulmonary findings. Head CT 05/12/20 00:00 IMPRESSION: No acute findings. 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 Medications Medications Current Medications Generic Name Dose Route Start Last Admin Trade Name Freq PRN Reason Stop Dose Admin Acetaminophen 650 mg 04/04/20 21:36 05/22/20 19:43 Acetaminophen 325 Mg Tablet PO 650 mg Q6H PRN Administration Headache/Pain Mild Scale (1-3) Al Hydroxide/Mg Hydroxide 30 ml 04/04/20 21:36 Magnesium Hydrox/Alum Hydrox 30 Ml Oral.Susp PO Q6H PRN Heartburn/Nausea Atenolol 25 mg 05/22/20 09:00 05/22/20 09:28 Atenolol 25 Mg Tablet PO 25 mg DAILY HASMUKH Administration Protocol Divalproex Sodium 750 mg 05/21/20 19:00 05/22/20 19:27 Divalproex Sodium Er 250 Mg Tab.Er.24h PO 750 mg DAILY@1900 [facility] Administration Donepezil HCl 5 mg 05/20/20 21:00 05/22/20 21:38 Donepezil Hcl 5 Mg Tablet PO 5 mg BEDTIME HASMU[facility] Administration Hydroxyzine HCl 25 mg 04/04/20 21:36 05/22/20 00:48 Hydroxyzine Hcl 25 Mg Tablet PO 25 mg BEDTIME PRN Administration Anxiety Lorazepam 0.5 mg 05/22/20 12:49 05/22/20 12:56 Lorazepam 0.5 Mg Tablet PO 0.5 mg Q4H PRN Administration anxiety/restlessness Magnesium Hydroxide 30 ml 04/04/20 21:36 Milk Of Magnesia 30 Ml Oral.Susp PO DAILY PRN Constipation Memantine 5 mg 05/22/20 13:00 05/22/20 12:56 Memantine Hcl 5 Mg Tablet PO 5 mg DAILY HASMUKH Administration Trazodone HCl 50 mg 04/04/20 21:36 05/22/20 00:48 Trazodone Hcl 50 Mg Tablet PO 50 mg BEDTIME PRN Administration Insomnia Allergies Allergies Allergy/AdvReac Type Severity Reaction Status Date / Time No Known Allergies Allergy Verified 04/02/20 20:21 [No Known Allergies*] Assessment & Plan Assessment & Plan (1) Cognitive impairment: Status: Acute Code(s): R41.89 - Other symptoms and signs involving cognitive functions and awareness (2) Atypical depressive disorder: Status: Acute Code(s): F32.89 - Other specified depressive episodes (3) Seizure disorder: Status: Acute Code(s): G40.909 - Epilepsy, unspecified, not intractable, without status epilepticus Assessment and Plan: DEPAKOTE ck level monitor vs elevated blood sugar no added sweets namenda for behavoir trying to avoid antipsychotics Greater than 50% of the session was spent on counseling and/or coordination of care
[2020-05-23 06:00] VITALS: BP 124/61; PULSE 93; RESP 16; TEMP 36.4; O2SAT 96
[2020-05-23 07:00] VITALS: BMI 28.1
[2020-05-23 09:19] VITALS: BP 124/61; PULSE 93
[2020-05-23] MEDS: atenoloL 25 MG TABLET PO (09:19)
[2020-05-23] MEDS: Memantine HCl 5 MG TABLET PO (09:20)
[2020-05-23 18:00] VITALS: BP 119/60; PULSE 93; TEMP 36.7
[2020-05-23] MEDS: LORazepam 0.5 MG TABLET PO (19:36)
[2020-05-23] MEDS: Divalproex Sodium ER 250 MG TAB.ER.24H 750 MG PO (20:30)
[2020-05-23] MEDS: Donepezil HCl 5 MG TABLET PO (20:30)
--- NOTE | 2020-05-23 22:07 | P.PNPSI_ITS ---
Subjective Subjective Date of Service: 05/23/20 Reason For Visit: depression si hi Subjective Notes: Conditional Voluntary Interim History: patient had a better day calmer less reactive Medication Compliance: Yes Attending Groups: Intermittent Review of Systems Reports Normal hearing present Reports as per HPI and Reports Normal hearing present Mental Status Exam Mental Status Exam Narrative: Pt asleep. MSE deferred. Patient Appearance: Unkempt Patient Orientation: Person and Place Level of Consciousness: Restless Patient Behavior: Appropriate, Anxious, Distractible and Impulsive Mood Description: Labile and Angry Affect Description: Calm Patient Cognition Impaired: Yes Ability to Follow Directions: Fair Speech Pattern: Perseverating Memory Description: Episodic Impaired Diagnostics Vital Signs (24Hr): Vital Signs - 24 hr 05/23/20 06:00 05/23/20 09:19 05/23/20 18:00 Temperature 97.5 F 98.1 F Pulse Rate 93 93 93 Respiratory Rate 16 Blood Pressure 124/61 124/61 119/60 Pulse Oximetry 96 Body Mass Index 28.1 Labs Results: 05/12/20 10:49 05/21/20 13:56 Labs: Laboratory Results - last 48 hr 05/21/20 09:42 T.pallidum Ab (EIA) Nonreactive Imaging Radiology Impressions: ITS Impressions Chest X-Ray 05/12/20 00:00 IMPRESSION: No acute cardiopulmonary findings. Head CT 05/12/20 00:00 IMPRESSION: No acute findings. 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 Medications Medications Current Medications Generic Name Dose Route Start Last Admin Trade Name Freq PRN Reason Stop Dose Admin Acetaminophen 650 mg 04/04/20 21:36 05/22/20 19:43 Acetaminophen 325 Mg Tablet PO 650 mg Q6H PRN Administration Headache/Pain Mild Scale (1-3) Al Hydroxide/Mg Hydroxide 30 ml 04/04/20 21:36 Magnesium Hydrox/Alum Hydrox 30 Ml Oral.Susp PO Q6H PRN Heartburn/Nausea Atenolol 25 mg 05/22/20 09:00 05/23/20 09:19 Atenolol 25 Mg Tablet PO 25 mg DAILY HASMUKH Administration Protocol Divalproex Sodium 750 mg 05/21/20 19:00 05/23/20 20:30 Divalproex Sodium Er 250 Mg Tab.Er.24h PO 750 mg DAILY@1900 [facility] Administration Donepezil HCl 5 mg 05/20/20 21:00 05/23/20 20:30 Donepezil Hcl 5 Mg Tablet PO 5 mg BEDTIME HASMUKH Administration Hydroxyzine HCl 25 mg 04/04/20 21:36 05/22/20 00:48 Hydroxyzine Hcl 25 Mg Tablet PO 25 mg BEDTIME PRN Administration Anxiety Lorazepam 0.5 mg 05/22/20 12:49 05/23/20 19:36 Lorazepam 0.5 Mg Tablet PO 0.5 mg Q4H PRN Administration anxiety/restlessness Magnesium Hydroxide 30 ml 04/04/20 21:36 Milk Of Magnesia 30 Ml Oral.Susp PO DAILY PRN Constipation Memantine 5 mg 05/22/20 13:00 05/23/20 09:20 Memantine Hcl 5 Mg Tablet PO 5 mg DAILY HASMUKH Administration Trazodone HCl 50 mg 04/04/20 21:36 05/22/20 00:48 Trazodone Hcl 50 Mg Tablet PO 50 mg BEDTIME PRN Administration Insomnia Allergies Allergies Allergy/AdvReac Type Severity Reaction Status Date / Time No Known Allergies Allergy Verified 04/02/20 20:21 [No Known Allergies*] Assessment & Plan Assessment & Plan (1) Cognitive impairment: Status: Acute Code(s): R41.89 - Other symptoms and signs involving cognitive functions and awareness (2) Seizure disorder: Status: Acute Code(s): G40.909 - Epilepsy, unspecified, not intractable, without status epilepticus (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
[2020-05-23] MEDS: traZODone HCL 50 MG TABLET PO (23:25)
--- NOTE | 2020-05-24 | XR_ITS ---
EXAMINATION: XR HAND, RIGHT CLINICAL INFORMATION: Right hand trauma. Punched a wall COMPARISON: None TECHNIQUE: PA, lateral, and oblique views of the right hand. FINDINGS: There is no fracture. No dislocation. No acute change of bone or joint. 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 Mild degenerative joint narrowing and marginal bone spurs of the DIP joints of the index and ring finger and little finger and the PIP joint of the ring finger. XR/XR hand RT min 3V IMPRESSION: No acute abnormality of the right hand
[2020-05-24 06:00] VITALS: BP 100/53; PULSE 68; RESP 16; TEMP 36.5; O2SAT 95
[2020-05-24 08:38] VITALS: BP 100/53; PULSE 68
[2020-05-24] MEDS: Memantine HCl 5 MG TABLET PO (08:38)
[2020-05-24] MEDS: atenoloL 25 MG TABLET PO (08:38)
--- NOTE | 2020-05-24 08:56 | HO.PSYCHPN ---
Subjective Subjective Date of Service: 05/24/20 Reason For Visit: depression si hi Interim History: Marked increase in lability/explosiveness. punched a wall. States he will kill himself. DW Dr Garcia. Xray Rt hand as he punched the wall Review of Systems Reports Normal hearing present Reports as per HPI and Reports Normal hearing present Mental Status Exam Mental Status Exam Narrative: Pt asleep. MSE deferred. Patient Appearance: Unkempt Patient Orientation: Person and Place Level of Consciousness: Restless Patient Behavior: Appropriate, Anxious, Distractible and Impulsive Mood Description: Labile and Angry Affect Description: Calm Patient Cognition Impaired: Yes Ability to Follow Directions: Fair Speech Pattern: Perseverating Memory Description: Episodic Impaired Diagnostics Vital Signs (24Hr): Vital Signs - 24 hr 05/23/20 09:19 05/23/20 18:00 05/24/20 06:00 Temperature 98.1 F 97.7 F Pulse Rate 93 93 68 Respiratory Rate 16 Blood Pressure 124/61 119/60 100/53 L Pulse Oximetry 95 05/24/20 08:38 Temperature Pulse Rate 68 Respiratory Rate Blood Pressure 100/53 L Pulse Oximetry Body Mass Index 28.1 Labs Results: 05/12/20 10:49 05/21/20 13:56 Imaging Radiology Impressions: ITS Impressions Chest X-Ray 05/12/20 00:00 IMPRESSION: No acute cardiopulmonary findings. Head CT 05/12/20 00:00 IMPRESSION: No acute findings. 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 Medications Medications Current Medications Generic Name Dose Route Start Last Admin Trade Name Freq PRN Reason Stop Dose Admin Acetaminophen 650 mg 04/04/20 21:36 05/22/20 19:43 Acetaminophen 325 Mg Tablet PO 650 mg Q6H PRN Administration Headache/Pain Mild Scale (1-3) Al Hydroxide/Mg Hydroxide 30 ml 04/04/20 21:36 Magnesium Hydrox/Alum Hydrox 30 Ml Oral.Susp PO Q6H PRN Heartburn/Nausea Atenolol 25 mg 05/22/20 09:00 05/24/20 08:38 Atenolol 25 Mg Tablet PO 25 mg DAILY HASMUKH Administration Protocol Divalproex Sodium 750 mg 05/21/20 19:00 05/23/20 20:30 Divalproex Sodium Er 250 Mg Tab.Er.24h PO 750 mg DAILY@1900 HASMUKH Administration Donepezil HCl 5 mg 05/20/20 21:00 05/23/20 20:30 Donepezil Hcl 5 Mg Tablet PO 5 mg BEDTIME HASMUKH Administration Hydroxyzine HCl 25 mg 04/04/20 21:36 05/22/20 00:48 Hydroxyzine Hcl 25 Mg Tablet PO 25 mg BEDTIME PRN Administration Anxiety Lorazepam 0.5 mg 05/22/20 12:49 05/23/20 19:36 Lorazepam 0.5 Mg Tablet PO 0.5 mg Q4H PRN Administration anxiety/restlessness Magnesium Hydroxide 30 ml 04/04/20 21:36 Milk Of Magnesia 30 Ml Oral.Susp PO DAILY PRN Constipation Memantine 5 mg 05/22/20 13:00 05/24/20 08:38 Memantine Hcl 5 Mg Tablet PO 5 mg DAILY HASMUKH Administration Trazodone HCl 50 mg 04/04/20 21:36 05/23/20 23:25 Trazodone Hcl 50 Mg Tablet PO 50 mg BEDTIME PRN Administration Insomnia Allergies Allergies Allergy/AdvReac Type Severity Reaction Status Date / Time No Known Allergies Allergy Verified 04/02/20 20:21 [No Known Allergies*] Assessment & Plan Assessment & Plan (1) Cognitive impairment: Status: Acute Code(s): R41.89 - Other symptoms and signs involving cognitive functions and awareness (2) Seizure disorder: Status: Acute Code(s): G40.909 - Epilepsy, unspecified, not intractable, without status epilepticus (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
[2020-05-24] MEDS: Acetaminophen 325 MG TABLET 650 MG PO ×2 (10:23→14:37)
[2020-05-24] MEDS: LORazepam 0.5 MG TABLET PO (13:05)
[2020-05-24] MEDS: LORazepam 1 MG TABLET PO (14:37)
[2020-05-24 17:44] VITALS: BP 108/56; PULSE 76; TEMP 36.9
[2020-05-24] MEDS: Divalproex Sodium ER 250 MG TAB.ER.24H 750 MG PO (19:01)
[2020-05-24] MEDS: Donepezil HCl 5 MG TABLET PO (21:03)
[2020-05-25] MEDS: LORazepam 0.5 MG TABLET PO ×2 (00:14→08:52)
[2020-05-25 06:00] VITALS: BP 141/76; PULSE 88; TEMP 31.1; O2SAT 95
[2020-05-25 08:52] VITALS: BP 141/76; PULSE 88
[2020-05-25] MEDS: atenoloL 25 MG TABLET PO (08:52)
[2020-05-25] MEDS: Memantine HCl 5 MG TABLET PO (08:52)
--- NOTE | 2020-05-25 10:51 | HO.PSYCHPN ---
Subjective Subjective Date of Service: 05/25/20 Reason For Visit: depression si hi Subjective Notes: Conditional Voluntary Interim History: Pt upset he doesn't have someone to talk to all the time, feels hopeless/helpless Medication Compliance: Yes Side effects from medications: No Attending Groups: No Review of Systems Acute medical concerns: Yes recent seizure Medical Review of Systems: unchanged Review of Systems Reports Normal hearing present Reports as per HPI and Reports Normal hearing present Mental Status Exam Mental Status Exam Narrative: mildly unkempt, angry and irritable Patient Appearance: Disheveled Patient Orientation: Person and Place Level of Consciousness: Awake Patient Behavior: Passive Mood Description: Anxious Affect Description: Hostile Patient Cognition Impaired: Yes Ability to Follow Directions: Fair Speech Pattern: Rambling Hallucinations: None Delusions: Paranoid Ideation Thought Process: Rumination Thought Content: positive for Perseveration Depressive Symptoms: Increased Anxiety, Increased Irritability, Hopelessness and Unhappiness Judgement: Poor Diagnostics Vital Signs (24Hr): Vital Signs - 24 hr 05/24/20 17:44 05/25/20 06:00 05/25/20 08:52 Temperature 98.4 F 88 F L Pulse Rate 76 88 88 Blood Pressure 108/56 L 141/76 H 141/76 H Pulse Oximetry 95 Body Mass Index 28.1 Labs Results: 05/12/20 10:49 05/21/20 13:56 Imaging Radiology Impressions: ITS Impressions Chest X-Ray 05/12/20 00:00 IMPRESSION: No acute cardiopulmonary findings. Head CT 05/12/20 00:00 IMPRESSION: No acute findings. 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 Hand X-Ray 05/24/20 00:00 IMPRESSION: No acute abnormality of the right hand Medications Medications Current Medications Generic Name Dose Route Start Last Admin Trade Name Freq PRN Reason Stop Dose Admin Acetaminophen 650 mg 04/04/20 21:36 05/24/20 10:23 Acetaminophen 325 Mg Tablet PO 650 mg Q6H PRN Administration Headache/Pain Mild Scale (1-3) Al Hydroxide/Mg Hydroxide 30 ml 04/04/20 21:36 Magnesium Hydrox/Alum Hydrox 30 Ml Oral.Susp PO Q6H PRN Heartburn/Nausea Atenolol 25 mg 05/22/20 09:00 05/25/20 08:52 Atenolol 25 Mg Tablet PO 25 mg DAILY HASMUKH Administration Protocol Divalproex Sodium 750 mg 05/21/20 19:00 05/24/20 19:01 Divalproex Sodium Er 250 Mg Tab.Er.24h PO 750 mg DAILY@1900 HAS[facility] Administration Donepezil HCl 5 mg 05/20/20 21:00 05/24/20 21:03 Donepezil Hcl 5 Mg Tablet PO 5 mg BEDTIME HASMUKH Administration Hydroxyzine HCl 25 mg 04/04/20 21:36 05/22/20 00:48 Hydroxyzine Hcl 25 Mg Tablet PO 25 mg BEDTIME PRN Administration Anxiety Lorazepam 0.5 mg 05/22/20 12:49 05/25/20 08:52 Lorazepam 0.5 Mg Tablet PO 0.5 mg Q4H PRN Administration anxiety/restlessness Magnesium Hydroxide 30 ml 04/04/20 21:36 Milk Of Magnesia 30 Ml Oral.Susp PO DAILY PRN Constipation Memantine 5 mg 05/22/20 13:00 05/25/20 08:52 Memantine Hcl 5 Mg Tablet PO 5 mg DAILY HASMUKH Administration Trazodone HCl 50 mg 04/04/20 21:36 05/23/20 23:25 Trazodone Hcl 50 Mg Tablet PO 50 mg BEDTIME PRN Administration Insomnia Allergies Allergies Allergy/AdvReac Type Severity Reaction Status Date / Time No Known Allergies Allergy Verified 04/02/20 20:21 [No Known Allergies*] Assessment & Plan Assessment & Plan (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 Code(s): F09 - Unspecified mental disorder due to known physiological condition; F07.89 - Other personality and behavioral disorders due to known physiological condition Assessment and Plan: on aricept, keep reorienting (2) Atypical depressive disorder: Status: Acute Code(s): F32.89 - Other specified depressive episodes Assessment and Plan: co of perseverative thoughts of abandonment (3) Seizure disorder: Status: Acute Code(s): G40.909 - Epilepsy, unspecified, not intractable, without status epilepticus Assessment and Plan: started on depakote - taking it all at night thinking to add am dose might help irritability Greater than 50% of the session was spent on counseling and/or coordination of care
[2020-05-25 17:39] VITALS: BP 130/70; PULSE 90; TEMP 36.7
[2020-05-25] MEDS: Donepezil HCl 5 MG TABLET PO (20:09)
[2020-05-25] MEDS: Divalproex Sodium ER 250 MG TAB.ER.24H 750 MG PO (20:09)
[2020-05-26 06:00] VITALS: BP 139/69; PULSE 84; TEMP 36.5
[2020-05-26] MEDS: Memantine HCl 5 MG TABLET PO (08:51)
[2020-05-26] MEDS: Divalproex Sodium ER 250 MG TAB.ER.24H PO (08:51)
[2020-05-26 08:52] VITALS: BP 139/69; PULSE 84
[2020-05-26] MEDS: atenoloL 25 MG TABLET PO (08:52)
[2020-05-26] MEDS: Acetaminophen 325 MG TABLET 650 MG PO (09:54)
--- NOTE | 2020-05-26 14:34 | HO.PSYCHPN ---
Subjective Subjective Date of Service: 05/26/20 Reason For Visit: depression si hi Subjective Notes: Conditional Voluntary Interim History: Feels like he is going to go off Upset again that not getting the type of or length of interaction he wants feels he starts talking and people leave, feeling abandoned- Medication Compliance: Yes Side effects from medications: No Attending Groups: Intermittent Review of Systems Acute medical concerns: No Medical Review of Systems: unchanged Review of Systems Reports Normal hearing present Comments: co of looser stools on depakote and fart/incontinence at night Reports as per HPI and Reports Normal hearing present Mental Status Exam Mental Status Exam Narrative: mildly unkempt, angry and irritable Patient Appearance: Disheveled Patient Orientation: Person and Place Level of Consciousness: Awake Patient Behavior: Passive Mood Description: Anxious Affect Description: Hostile Patient Cognition Impaired: Yes Ability to Follow Directions: Fair Speech Pattern: Rambling Hallucinations: None Delusions: Paranoid Ideation Thought Process: Rumination Thought Content: positive for Perseveration Depressive Symptoms: Increased Anxiety, Increased Irritability, Hopelessness and Unhappiness Judgement: Poor Diagnostics Vital Signs (24Hr): Vital Signs - 24 hr 05/25/20 17:39 05/26/20 06:00 05/26/20 08:52 Temperature 98.0 F 97.7 F Pulse Rate 90 84 84 Blood Pressure 130/70 139/69 139/69 Body Mass Index 28.1 Labs Results: 05/12/20 10:49 05/21/20 13:56 Imaging Radiology Impressions: ITS Impressions Chest X-Ray 05/12/20 00:00 IMPRESSION: No acute cardiopulmonary findings. Head CT 05/12/20 00:00 IMPRESSION: No acute findings. 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 Hand X-Ray 05/24/20 00:00 IMPRESSION: No acute abnormality of the right hand Medications Medications Current Medications Generic Name Dose Route Start Last Admin Trade Name Freq PRN Reason Stop Dose Admin Acetaminophen 650 mg 04/04/20 21:36 05/26/20 09:54 Acetaminophen 325 Mg Tablet PO 650 mg Q6H PRN Administration Headache/Pain Mild Scale (1-3) Al Hydroxide/Mg Hydroxide 30 ml 04/04/20 21:36 Magnesium Hydrox/Alum Hydrox 30 Ml Oral.Susp PO Q6H PRN Heartburn/Nausea Atenolol 25 mg 05/22/20 09:00 05/26/20 08:52 Atenolol 25 Mg Tablet PO 25 mg DAILY HASMUKH Administration Protocol Divalproex Sodium 750 mg 05/21/20 19:00 05/25/20 20:09 Divalproex Sodium Er 250 Mg Tab.Er.24h PO 750 mg DAILY@1900 HASMU[facility] Administration Divalproex Sodium 250 mg 05/26/20 09:00 05/26/20 08:51 Divalproex Sodium Er 250 Mg Tab.Er.24h PO 250 mg DAILY HASMUKH Administration Donepezil HCl 5 mg 05/20/20 21:00 05/25/20 20:09 Donepezil Hcl 5 Mg Tablet PO 5 mg BEDTIME HASMUKH Administration Hydroxyzine HCl 25 mg 04/04/20 21:36 05/22/20 00:48 Hydroxyzine Hcl 25 Mg Tablet PO 25 mg BEDTIME PRN Administration Anxiety Lorazepam 0.5 mg 05/22/20 12:49 05/25/20 08:52 Lorazepam 0.5 Mg Tablet PO 0.5 mg Q4H PRN Administration anxiety/restlessness Magnesium Hydroxide 30 ml 04/04/20 21:36 Milk Of Magnesia 30 Ml Oral.Susp PO DAILY PRN Constipation Memantine 5 mg 05/22/20 13:00 05/26/20 08:51 Memantine Hcl 5 Mg Tablet PO 5 mg DAILY HASMUKH Administration Trazodone HCl 50 mg 04/04/20 21:36 05/23/20 23:25 Trazodone Hcl 50 Mg Tablet PO 50 mg BEDTIME PRN Administration Insomnia Allergies Allergies Allergy/AdvReac Type Severity Reaction Status Date / Time No Known Allergies Allergy Verified 04/02/20 20:21 [No Known Allergies*] Assessment & Plan Assessment & Plan (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 Code(s): F09 - Unspecified mental disorder due to known physiological condition; F07.89 - Other personality and behavioral disorders due to known physiological condition Assessment and Plan: ongoing cognitive issues (2) Atypical depressive disorder: Status: Acute Code(s): F32.89 - Other specified depressive episodes Assessment and Plan: we discussed if feelings might have been triggered by hx seizure, discussed how dosage had been adjusted may have to lower pm dose pt co of loose and incontinent? stool at night (3) Seizure disorder: Status: Acute Code(s): G40.909 - Epilepsy, unspecified, not intractable, without status epilepticus Assessment and Plan: on depakote will recheck lvl , lower pm dose so total dose will stay at 750mg/day Greater than 50% of the session was spent on counseling and/or coordination of care
[2020-05-26] MEDS: Divalproex Sodium ER 500 MG TAB.ER.24H PO (19:09)
[2020-05-26 19:50] VITALS: BP 140/67; PULSE 71; TEMP 36.1
[2020-05-26] MEDS: Donepezil HCl 5 MG TABLET PO (21:14)
[2020-05-27] MEDS: hydrOXYzine HCL 25 MG TABLET PO (02:05)
[2020-05-27] MEDS: traZODone HCL 50 MG TABLET PO (02:05)
[2020-05-27 06:00] VITALS: BP 124/69; PULSE 71; TEMP 36.6
[2020-05-27] MEDS: Memantine HCl 5 MG TABLET PO (09:46)
[2020-05-27 09:47] VITALS: BP 124/69; PULSE 71
[2020-05-27] MEDS: atenoloL 25 MG TABLET PO (09:47)
[2020-05-27] MEDS: Divalproex Sodium ER 250 MG TAB.ER.24H PO (09:48)
[2020-05-27] MEDS: Acetaminophen 325 MG TABLET 650 MG PO (09:54)
--- NOTE | 2020-05-27 10:19 | HO.PSYCHPN ---
Subjective Subjective Date of Service: 05/27/20 Reason For Visit: depression si hi Subjective Notes: Conditional Voluntary Interim History: the patient is anxious and ruminating can be reactive very sensitive to rejection preoccupied about the past Medication Compliance: Yes Review of Systems Reports Normal hearing present Reports as per HPI and Reports Normal hearing present Mental Status Exam Mental Status Exam Narrative: mildly unkempt, angry and irritable Patient Appearance: Disheveled Patient Orientation: Person and Place Level of Consciousness: Awake Patient Behavior: Passive Mood Description: Anxious Affect Description: Hostile Patient Cognition Impaired: Yes Ability to Follow Directions: Fair Speech Pattern: Rambling Hallucinations: None Delusions: Paranoid Ideation Thought Process: Rumination Thought Content: positive for Perseveration Depressive Symptoms: Increased Anxiety, Increased Irritability, Hopelessness and Unhappiness Judgement: Poor Diagnostics Vital Signs (24Hr): Vital Signs - 24 hr 05/26/20 19:50 05/27/20 09:47 Temperature 96.9 F Pulse Rate 71 71 Blood Pressure 140/67 H 124/69 Body Mass Index 28.1 Labs Results: 05/12/20 10:49 05/21/20 13:56 Imaging Radiology Impressions: ITS Impressions Chest X-Ray 05/12/20 00:00 IMPRESSION: No acute cardiopulmonary findings. Head CT 05/12/20 00:00 IMPRESSION: No acute findings. 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 Hand X-Ray 05/24/20 00:00 IMPRESSION: No acute abnormality of the right hand Medications Medications Current Medications Generic Name Dose Route Start Last Admin Trade Name Freq PRN Reason Stop Dose Admin Acetaminophen 650 mg 04/04/20 21:36 05/27/20 09:54 Acetaminophen 325 Mg Tablet PO 650 mg Q6H PRN Administration Headache/Pain Mild Scale (1-3) Al Hydroxide/Mg Hydroxide 30 ml 04/04/20 21:36 Magnesium Hydrox/Alum Hydrox 30 Ml Oral.Susp PO Q6H PRN Heartburn/Nausea Atenolol 25 mg 05/22/20 09:00 05/27/20 09:47 Atenolol 25 Mg Tablet PO 25 mg DAILY HASMUKH Administration Protocol Divalproex Sodium 250 mg 05/26/20 09:00 05/27/20 09:48 Divalproex Sodium Er 250 Mg Tab.Er.24h PO 250 mg DAILY HASMUKH Administration Divalproex Sodium 500 mg 05/26/20 19:00 05/26/20 19:09 Divalproex Sodium Er 500 Mg Tab.Er.24h PO 500 mg DAILY@1900 HASMUKH Administration Donepezil HCl 5 mg 05/20/20 21:00 05/26/20 21:14 Donepezil Hcl 5 Mg Tablet PO 5 mg BEDTIME HASMUKH Administration Hydroxyzine HCl 25 mg 04/04/20 21:36 05/27/20 02:05 Hydroxyzine Hcl 25 Mg Tablet PO 25 mg BEDTIME PRN Administration Anxiety Lorazepam 0.5 mg 05/22/20 12:49 05/25/20 08:52 Lorazepam 0.5 Mg Tablet PO 0.5 mg Q4H PRN Administration anxiety/restlessness Magnesium Hydroxide 30 ml 04/04/20 21:36 Milk Of Magnesia 30 Ml Oral.Susp PO DAILY PRN Constipation Memantine 5 mg 05/22/20 13:00 05/27/20 09:46 Memantine Hcl 5 Mg Tablet PO 5 mg DAILY HASMUKH Administration Trazodone HCl 50 mg 04/04/20 21:36 05/27/20 02:05 Trazodone Hcl 50 Mg Tablet PO 50 mg BEDTIME PRN Administration Insomnia Allergies Allergies Allergy/AdvReac Type Severity Reaction Status Date / Time No Known Allergies Allergy Verified 04/02/20 20:21 [No Known Allergies*] Assessment & Plan Assessment & Plan (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 Code(s): F09 - Unspecified mental disorder due to known physiological condition; F07.89 - Other personality and behavioral disorders due to known physiological condition (2) Atypical depressive disorder: Status: Acute Code(s): F32.89 - Other specified depressive episodes (3) Seizure disorder: Status: Acute Code(s): G40.909 - Epilepsy, unspecified, not intractable, without status epilepticus Assessment and Plan: start mirtazapine 7.5 mg at bedtime patient with atypical process question frontal temporal continue Depakote Greater than 50% of the session was spent on counseling and/or coordination of care
[2020-05-27 17:32] VITALS: BP 126/76; PULSE 78; TEMP 36.8
[2020-05-27] MEDS: Divalproex Sodium ER 500 MG TAB.ER.24H PO (20:15)
[2020-05-27] MEDS: Donepezil HCl 5 MG TABLET PO (20:15)
[2020-05-27] MEDS: Mirtazapine 7.5 MG TABLET PO (22:03)
[2020-05-28 04:55] VITALS: BP 126/71; PULSE 78; RESP 16; TEMP 36.6; O2SAT 97
[2020-05-28 08:30] VITALS: BP 126/71; PULSE 78
[2020-05-28] MEDS: atenoloL 25 MG TABLET PO (08:30)
[2020-05-28] MEDS: Divalproex Sodium ER 250 MG TAB.ER.24H PO (08:30)
[2020-05-28] MEDS: Memantine HCl 5 MG TABLET PO (08:30)
[2020-05-28] MEDS: Acetaminophen 325 MG TABLET 650 MG PO (09:00)
[2020-05-28] MEDS: LORazepam 0.5 MG TABLET PO (15:52)
[2020-05-28 19:55] VITALS: BP 116/65; PULSE 95; TEMP 36.7
[2020-05-28] MEDS: Divalproex Sodium ER 500 MG TAB.ER.24H PO (21:39)
[2020-05-28] MEDS: Mirtazapine 7.5 MG TABLET PO (21:39)
[2020-05-28] MEDS: Donepezil HCl 5 MG TABLET PO (21:40)
--- NOTE | 2020-05-28 22:47 | HO.PSYCHPN ---
Subjective Subjective Date of Service: 05/29/20 Reason For Visit: depression si hi Subjective Notes: Conditional Voluntary Interim History: patient with periods of severe anxiety and agitated in earlier in the day. Feeling overwhelmed at the thought of living in a rest home how will I have clean clothes helpfully get close how connect feed myself. Patient much reassured when explain the services that were available to him. Continues to have obsessional thoughts regarding his father and past behavior Review of Systems Reports Normal hearing present Reports as per HPI and Reports Normal hearing present Mental Status Exam Mental Status Exam Narrative: mildly unkempt, angry and irritable Patient Appearance: Disheveled Patient Orientation: Person and Place Level of Consciousness: Awake Patient Behavior: Passive Mood Description: Anxious Affect Description: Hostile Patient Cognition Impaired: Yes Ability to Follow Directions: Fair Speech Pattern: Rambling Hallucinations: None Delusions: Paranoid Ideation Thought Process: Rumination Thought Content: positive for Perseveration Depressive Symptoms: Increased Anxiety, Increased Irritability, Hopelessness and Unhappiness Judgement: Poor Diagnostics Vital Signs (24Hr): Vital Signs - 24 hr 05/28/20 04:55 05/28/20 08:30 05/28/20 19:55 Temperature 98 F 98.0 F Pulse Rate 78 78 95 Respiratory Rate 16 Blood Pressure 126/71 126/71 116/65 Pulse Oximetry 97 Body Mass Index 28.1 Labs Results: 05/12/20 10:49 05/21/20 13:56 Imaging Radiology Impressions: ITS Impressions Chest X-Ray 05/12/20 00:00 IMPRESSION: No acute cardiopulmonary findings. Head CT 05/12/20 00:00 IMPRESSION: No acute findings. 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 Hand X-Ray 05/24/20 00:00 IMPRESSION: No acute abnormality of the right hand Medications Medications Current Medications Generic Name Dose Route Start Last Admin Trade Name Freq PRN Reason Stop Dose Admin Acetaminophen 650 mg 04/04/20 21:36 05/28/20 09:00 Acetaminophen 325 Mg Tablet PO 650 mg Q6H PRN Administration Headache/Pain Mild Scale (1-3) Al Hydroxide/Mg Hydroxide 30 ml 04/04/20 21:36 Magnesium Hydrox/Alum Hydrox 30 Ml Oral.Susp PO Q6H PRN Heartburn/Nausea Atenolol 25 mg 05/22/20 09:00 05/28/20 08:30 Atenolol 25 Mg Tablet PO 25 mg DAILY HASMUKH Administration Protocol Divalproex Sodium 250 mg 05/26/20 09:00 05/28/20 08:30 Divalproex Sodium Er 250 Mg Tab.Er.24h PO 250 mg DAILY HASMUKH Administration Divalproex Sodium 500 mg 05/26/20 19:00 05/28/20 21:39 Divalproex Sodium Er 500 Mg Tab.Er.24h PO 500 mg DAILY@1900 HASMUKH Administration Donepezil HCl 5 mg 05/20/20 21:00 05/28/20 21:40 Donepezil Hcl 5 Mg Tablet PO 5 mg BEDTIME HASMUKH Administration Hydroxyzine HCl 25 mg 04/04/20 21:36 05/27/20 02:05 Hydroxyzine Hcl 25 Mg Tablet PO 25 mg BEDTIME PRN Administration Anxiety Lorazepam 0.5 mg 05/27/20 12:48 05/28/20 15:52 Lorazepam 0.5 Mg Tablet PO 0.5 mg Q4H PRN Administration anxiety/restlessness Magnesium Hydroxide 30 ml 04/04/20 21:36 Milk Of Magnesia 30 Ml Oral.Susp PO DAILY PRN Constipation Memantine 5 mg 05/22/20 13:00 05/28/20 08:30 Memantine Hcl 5 Mg Tablet PO 5 mg DAILY HASMUKH Administration Mirtazapine 7.5 mg 05/28/20 21:00 05/28/20 21:39 Mirtazapine 7.5 Mg Tablet PO 7.5 mg BEDTIME HASMUKH Administration Trazodone HCl 50 mg 04/04/20 21:36 05/27/20 02:05 Trazodone Hcl 50 Mg Tablet PO 50 mg BEDTIME PRN Administration Insomnia Allergies Allergies Allergy/AdvReac Type Severity Reaction Status Date / Time No Known Allergies Allergy Verified 04/02/20 20:21 [No Known Allergies*] Assessment & Plan Assessment & Plan (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 Code(s): F09 - Unspecified mental disorder due to known physiological condition; F07.89 - Other personality and behavioral disorders due to known physiological condition (2) Atypical depressive disorder: Status: Acute Code(s): F32.89 - Other specified depressive episodes (3) Seizure disorder: Status: Acute Code(s): G40.909 - Epilepsy, unspecified, not intractable, without status epilepticus Assessment and Plan: patient was quite anxious overwhelmed with vague transient SI earlier in the day later much of reassured by he would have help and support and his new apartment Greater than 50% of the session was spent on counseling and/or coordination of care
[2020-05-29 07:10] VITALS: BP 117/59; PULSE 80; RESP 16; TEMP 36.7
[2020-05-29 09:31] VITALS: BP 117/59; PULSE 80
[2020-05-29] MEDS: Divalproex Sodium ER 250 MG TAB.ER.24H PO (09:31)
[2020-05-29] MEDS: Memantine HCl 5 MG TABLET PO (09:31)
[2020-05-29] MEDS: atenoloL 25 MG TABLET PO (09:31)
[2020-05-29 18:00] VITALS: BP 117/83; PULSE 82; TEMP 36.4
[2020-05-29] MEDS: Divalproex Sodium ER 500 MG TAB.ER.24H PO (19:39)
[2020-05-29] MEDS: Donepezil HCl 5 MG TABLET PO (20:38)
[2020-05-29] MEDS: Mirtazapine 7.5 MG TABLET PO (20:38)
[2020-05-30 06:00] VITALS: BP 128/56; PULSE 65; TEMP 36.4
[2020-05-30 07:00] VITALS: BMI 27.8
[2020-05-30 08:32] VITALS: BP 128/56; PULSE 65
[2020-05-30] MEDS: atenoloL 25 MG TABLET PO (08:32)
[2020-05-30] MEDS: Divalproex Sodium ER 250 MG TAB.ER.24H PO (08:32)
[2020-05-30] MEDS: Memantine HCl 5 MG TABLET PO (08:32)
[2020-05-30 16:03] VITALS: BP 126/64; PULSE 86; TEMP 37
--- NOTE | 2020-05-30 17:02 | HO.PSYCHPN ---
Subjective Subjective Date of Service: 05/31/20 Reason For Visit: depression si hi Subjective Notes: Conditional Voluntary Interim History: pt easily triggered by other pts mood ok but can be labile Medication Compliance: Yes Review of Systems Reports Normal hearing present Reports as per HPI and Reports Normal hearing present Mental Status Exam Mental Status Exam Narrative: mildly unkempt, angry and irritable Patient Appearance: Disheveled Patient Orientation: Person and Place Level of Consciousness: Awake Patient Behavior: Passive Mood Description: Anxious Affect Description: Hostile Patient Cognition Impaired: Yes Ability to Follow Directions: Fair Speech Pattern: Rambling Hallucinations: None Delusions: Paranoid Ideation Thought Process: Rumination Thought Content: positive for Perseveration Depressive Symptoms: Increased Anxiety, Increased Irritability, Hopelessness and Unhappiness Judgement: Poor Diagnostics Vital Signs (24Hr): Vital Signs - 24 hr 05/29/20 18:00 05/30/20 06:00 05/30/20 08:32 Temperature 97.6 F 97.6 F Pulse Rate 82 65 65 Blood Pressure 117/83 128/56 L 128/56 L 05/30/20 16:03 Temperature 98.6 F Pulse Rate 86 Blood Pressure 126/64 Body Mass Index 27.8 Labs Results: 05/12/20 10:49 05/21/20 13:56 Imaging Radiology Impressions: ITS Impressions Chest X-Ray 05/12/20 00:00 IMPRESSION: No acute cardiopulmonary findings. Head CT 05/12/20 00:00 IMPRESSION: No acute findings. 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 Hand X-Ray 05/24/20 00:00 IMPRESSION: No acute abnormality of the right hand Medications Medications Current Medications Generic Name Dose Route Start Last Admin Trade Name Freq PRN Reason Stop Dose Admin Acetaminophen 650 mg 04/04/20 21:36 05/28/20 09:00 Acetaminophen 325 Mg Tablet PO 650 mg Q6H PRN Administration Headache/Pain Mild Scale (1-3) Al Hydroxide/Mg Hydroxide 30 ml 04/04/20 21:36 Magnesium Hydrox/Alum Hydrox 30 Ml Oral.Susp PO Q6H PRN Heartburn/Nausea Atenolol 25 mg 05/22/20 09:00 05/30/20 08:32 Atenolol 25 Mg Tablet PO 25 mg DAILY [facility] Administration Protocol Divalproex Sodium 250 mg 05/26/20 09:00 05/30/20 08:32 Divalproex Sodium Er 250 Mg Tab.Er.24h PO 250 mg DAILY [facility] Administration Divalproex Sodium 500 mg 05/26/20 19:00 05/29/20 19:39 Divalproex Sodium Er 500 Mg Tab.Er.24h PO 500 mg DAILY@1900 [facility] Administration Donepezil HCl 5 mg 05/20/20 21:00 05/29/20 20:38 Donepezil Hcl 5 Mg Tablet PO 5 mg BEDTIME [facility] Administration Hydroxyzine HCl 25 mg 04/04/20 21:36 05/27/20 02:05 Hydroxyzine Hcl 25 Mg Tablet PO 25 mg BEDTIME PRN Administration Anxiety Lorazepam 0.5 mg 05/27/20 12:48 05/28/20 15:52 Lorazepam 0.5 Mg Tablet PO 0.5 mg Q4H PRN Administration anxiety/restlessness Magnesium Hydroxide 30 ml 04/04/20 21:36 Milk Of Magnesia 30 Ml Oral.Susp PO DAILY PRN Constipation Memantine 5 mg 05/22/20 13:00 05/30/20 08:32 Memantine Hcl 5 Mg Tablet PO 5 mg DAILY [facility] Administration Mirtazapine 7.5 mg 05/28/20 21:00 05/29/20 20:38 Mirtazapine 7.5 Mg Tablet PO 7.5 mg BEDTIME [facility] Administration Trazodone HCl 50 mg 04/04/20 21:36 05/27/20 02:05 Trazodone Hcl 50 Mg Tablet PO 50 mg BEDTIME PRN Administration Insomnia Allergies Allergies Allergy/AdvReac Type Severity Reaction Status Date / Time No Known Allergies Allergy Verified 04/02/20 20:21 [No Known Allergies*] Assessment & Plan Assessment & Plan (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
[2020-05-30] MEDS: LORazepam 0.5 MG TABLET PO (19:45)
[2020-05-30] MEDS: Divalproex Sodium ER 500 MG TAB.ER.24H PO (19:45)
[2020-05-30] MEDS: Mirtazapine 7.5 MG TABLET PO (20:23)
[2020-05-30] MEDS: Donepezil HCl 5 MG TABLET PO (20:23)
[2020-05-31 06:10] VITALS: BP 102/56; PULSE 76; RESP 16; TEMP 36.4; O2SAT 95
[2020-05-31 08:33] VITALS: BP 102/56; PULSE 76
[2020-05-31] MEDS: Divalproex Sodium ER 250 MG TAB.ER.24H PO (08:34)
[2020-05-31] MEDS: Memantine HCl 5 MG TABLET PO (08:34)
[2020-05-31 18:00] VITALS: BP 143/67; PULSE 95; TEMP 36.9
[2020-05-31] MEDS: Divalproex Sodium ER 500 MG TAB.ER.24H PO (18:41)
[2020-05-31] MEDS: Donepezil HCl 5 MG TABLET PO (20:15)
[2020-05-31] MEDS: Mirtazapine 7.5 MG TABLET PO (20:15)
[2020-06-01 05:20] VITALS: BP 140/81; PULSE 85; RESP 16; TEMP 36.5; O2SAT 98
--- NOTE | 2020-06-01 07:14 | HO.PSYCHPN ---
Subjective Subjective Date of Service: 06/01/20 Reason For Visit: depression si hi Interim History: pt easily triggered by other pts mood ok but can be labile. Was intrusive with a female patient. Angry when redirected. Today exhibits no insight, made nonchalant comments of being here. Await [facility]. Review of Systems Reports Normal hearing present Reports as per HPI and Reports Normal hearing present Mental Status Exam Mental Status Exam Narrative: mildly unkempt, angry and irritable Patient Appearance: Disheveled Patient Orientation: Person and Place Level of Consciousness: Awake Patient Behavior: Passive Mood Description: Anxious Affect Description: Hostile Patient Cognition Impaired: Yes Ability to Follow Directions: Fair Speech Pattern: Rambling Memory Description: Episodic Impaired Diagnostics Vital Signs (24Hr): Vital Signs - 24 hr 05/31/20 08:33 05/31/20 18:00 06/01/20 05:20 Temperature 98.5 F 97.7 F Pulse Rate 76 95 85 Respiratory Rate 16 Blood Pressure 102/56 L 143/67 H 140/81 H Pulse Oximetry 98 Body Mass Index 27.8 Labs Results: 05/12/20 10:49 05/21/20 13:56 Imaging Radiology Impressions: ITS Impressions Chest X-Ray 05/12/20 00:00 IMPRESSION: No acute cardiopulmonary findings. Head CT 05/12/20 00:00 IMPRESSION: No acute findings. 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 Hand X-Ray 05/24/20 00:00 IMPRESSION: No acute abnormality of the right hand Medications Medications Current Medications Generic Name Dose Route Start Last Admin Trade Name Freq PRN Reason Stop Dose Admin Acetaminophen 650 mg 04/04/20 21:36 05/28/20 09:00 Acetaminophen 325 Mg Tablet PO 650 mg Q6H PRN Administration Headache/Pain Mild Scale (1-3) Al Hydroxide/Mg Hydroxide 30 ml 04/04/20 21:36 Magnesium Hydrox/Alum Hydrox 30 Ml Oral.Susp PO Q6H PRN Heartburn/Nausea Atenolol 25 mg 05/22/20 09:00 05/31/20 08:33 Atenolol 25 Mg Tablet PO Not Given DAILY [facility] Protocol Divalproex Sodium 250 mg 05/26/20 09:00 05/31/20 08:34 Divalproex Sodium Er 250 Mg Tab.Er.24h PO 250 mg DAILY [facility] Administration Divalproex Sodium 500 mg 05/26/20 19:00 05/31/20 18:41 Divalproex Sodium Er 500 Mg Tab.Er.24h PO 500 mg DAILY@1900 [facility] Administration Donepezil HCl 5 mg 05/20/20 21:00 05/31/20 20:15 Donepezil Hcl 5 Mg Tablet PO 5 mg BEDTIME [facility] Administration Hydroxyzine HCl 25 mg 04/04/20 21:36 05/27/20 02:05 Hydroxyzine Hcl 25 Mg Tablet PO 25 mg BEDTIME PRN Administration Anxiety Lorazepam 0.5 mg 05/27/20 12:48 05/30/20 19:45 Lorazepam 0.5 Mg Tablet PO 0.5 mg Q4H PRN Administration anxiety/restlessness Magnesium Hydroxide 30 ml 04/04/20 21:36 Milk Of Magnesia 30 Ml Oral.Susp PO DAILY PRN Constipation Memantine 5 mg 05/22/20 13:00 05/31/20 08:34 Memantine Hcl 5 Mg Tablet PO 5 mg DAILY [facility] Administration Mirtazapine 7.5 mg 05/28/20 21:00 05/31/20 20:15 Mirtazapine 7.5 Mg Tablet PO 7.5 mg BEDTIME [facility] Administration Trazodone HCl 50 mg 04/04/20 21:36 05/27/20 02:05 Trazodone Hcl 50 Mg Tablet PO 50 mg BEDTIME PRN Administration Insomnia Allergies Allergies Allergy/AdvReac Type Severity Reaction Status Date / Time No Known Allergies Allergy Verified 04/02/20 20:21 [No Known Allergies*] Assessment & Plan Assessment & Plan (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
[2020-06-01 09:13] VITALS: BP 140/81; PULSE 85
[2020-06-01] MEDS: Divalproex Sodium ER 250 MG TAB.ER.24H PO (09:13)
[2020-06-01] MEDS: Memantine HCl 5 MG TABLET PO (09:13)
[2020-06-01] MEDS: atenoloL 25 MG TABLET PO (09:13)
[2020-06-01 16:50] VITALS: BP 120/71; PULSE 82; TEMP 36.7
[2020-06-01] MEDS: Mirtazapine 7.5 MG TABLET PO (20:17)
[2020-06-01] MEDS: Donepezil HCl 5 MG TABLET PO (20:17)
[2020-06-01] MEDS: Divalproex Sodium ER 500 MG TAB.ER.24H PO (20:17)
[2020-06-02 05:55] VITALS: BP 119/66; PULSE 88; RESP 16; TEMP 36.6; O2SAT 95
[2020-06-02 08:24] VITALS: BP 119/66; PULSE 88
[2020-06-02] MEDS: Memantine HCl 5 MG TABLET PO (08:24)
[2020-06-02] MEDS: atenoloL 25 MG TABLET PO (08:24)
[2020-06-02] MEDS: Divalproex Sodium ER 250 MG TAB.ER.24H PO (08:24)
--- NOTE | 2020-06-02 08:40 | HO.PSYCHPN ---
Subjective Subjective Date of Service: 06/02/20 Reason For Visit: depression si hi Interim History: Was intrusive with a female patient. Angry when redirected. Today exhibits no insight, made nonchalant comments of being here. I need to blow my brains out. Impulsivity and disinhibition and fatuous talk s/o Frontal Lobe Sx. Await [facility]. Review of Systems Reports Normal hearing present Reports as per HPI and Reports Normal hearing present Mental Status Exam Mental Status Exam Narrative: mildly unkempt, angry and irritable Patient Appearance: Disheveled Patient Orientation: Person and Place Level of Consciousness: Awake Patient Behavior: Passive Mood Description: Anxious Affect Description: Hostile Patient Cognition Impaired: Yes Ability to Follow Directions: Fair Speech Pattern: Rambling Memory Description: Episodic Impaired Diagnostics Vital Signs (24Hr): Vital Signs - 24 hr 06/01/20 09:13 06/01/20 16:50 06/02/20 05:55 Temperature 98.1 F 98 F Pulse Rate 85 82 88 Respiratory Rate 16 Blood Pressure 140/81 H 120/71 119/66 Pulse Oximetry 95 06/02/20 08:24 Temperature Pulse Rate 88 Respiratory Rate Blood Pressure 119/66 Pulse Oximetry Body Mass Index 27.8 Labs Results: 05/12/20 10:49 05/21/20 13:56 Imaging Radiology Impressions: ITS Impressions Chest X-Ray 05/12/20 00:00 IMPRESSION: No acute cardiopulmonary findings. Head CT 05/12/20 00:00 IMPRESSION: No acute findings. 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 Hand X-Ray 05/24/20 00:00 IMPRESSION: No acute abnormality of the right hand Medications Medications Current Medications Generic Name Dose Route Start Last Admin Trade Name Freq PRN Reason Stop Dose Admin Acetaminophen 650 mg 04/04/20 21:36 05/28/20 09:00 Acetaminophen 325 Mg Tablet PO 650 mg Q6H PRN Administration Headache/Pain Mild Scale (1-3) Al Hydroxide/Mg Hydroxide 30 ml 04/04/20 21:36 Magnesium Hydrox/Alum Hydrox 30 Ml Oral.Susp PO Q6H PRN Heartburn/Nausea Atenolol 25 mg 05/22/20 09:00 06/02/20 08:24 Atenolol 25 Mg Tablet PO 25 mg DAILY [facility] Administration Protocol Divalproex Sodium 250 mg 05/26/20 09:00 06/02/20 08:24 Divalproex Sodium Er 250 Mg Tab.Er.24h PO 250 mg DAILY [facility] Administration Divalproex Sodium 500 mg 05/26/20 19:00 06/01/20 20:17 Divalproex Sodium Er 500 Mg Tab.Er.24h PO 500 mg DAILY@1900 [facility] Administration Donepezil HCl 5 mg 05/20/20 21:00 06/01/20 20:17 Donepezil Hcl 5 Mg Tablet PO 5 mg BEDTIME [facility] Administration Hydroxyzine HCl 25 mg 04/04/20 21:36 05/27/20 02:05 Hydroxyzine Hcl 25 Mg Tablet PO 25 mg BEDTIME PRN Administration Anxiety Magnesium Hydroxide 30 ml 04/04/20 21:36 Milk Of Magnesia 30 Ml Oral.Susp PO DAILY PRN Constipation Memantine 5 mg 05/22/20 13:00 06/02/20 08:24 Memantine Hcl 5 Mg Tablet PO 5 mg DAILY [facility] Administration Mirtazapine 7.5 mg 05/28/20 21:00 06/01/20 20:17 Mirtazapine 7.5 Mg Tablet PO 7.5 mg BEDTIME [facility] Administration Trazodone HCl 50 mg 04/04/20 21:36 05/27/20 02:05 Trazodone Hcl 50 Mg Tablet PO 50 mg BEDTIME PRN Administration Insomnia Allergies Allergies Allergy/AdvReac Type Severity Reaction Status Date / Time No Known Allergies Allergy Verified 04/02/20 20:21 [No Known Allergies*] Assessment & Plan Assessment & Plan (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
[2020-06-02 19:15] VITALS: BP 130/62; PULSE 94; TEMP 36
[2020-06-02] MEDS: Mirtazapine 7.5 MG TABLET PO (21:55)
[2020-06-02] MEDS: Divalproex Sodium ER 500 MG TAB.ER.24H PO (21:55)
[2020-06-02] MEDS: Donepezil HCl 5 MG TABLET PO (21:56)
[2020-06-03] MEDS: Acetaminophen 325 MG TABLET 650 MG PO ×2 (05:38→20:38)
[2020-06-03 05:50] VITALS: BP 117/71; PULSE 81; RESP 16; TEMP 36.5; O2SAT 96
[2020-06-03 08:49] VITALS: BP 117/71; PULSE 81
[2020-06-03] MEDS: atenoloL 25 MG TABLET PO (08:49)
[2020-06-03] MEDS: Divalproex Sodium ER 250 MG TAB.ER.24H PO (08:49)
[2020-06-03] MEDS: Memantine HCl 5 MG TABLET PO (08:49)
--- NOTE | 2020-06-03 10:22 | HO.PSYCHPN ---
Subjective Subjective Date of Service: 06/03/20 Reason For Visit: depression si hi Subjective Notes: Conditional Voluntary Interim History: the patient has periods of anxiety and rumination regarding his past he is less labile and responds well to the supportive counseling Medication Compliance: Yes Review of Systems Reports Normal hearing present Reports as per HPI and Reports Normal hearing present Mental Status Exam Mental Status Exam Narrative: mildly unkempt, angry and irritable Patient Appearance: Disheveled Patient Orientation: Person and Place Level of Consciousness: Awake Patient Behavior: Passive Mood Description: Anxious Affect Description: Hostile Patient Cognition Impaired: Yes Ability to Follow Directions: Fair Speech Pattern: Rambling Memory Description: Episodic Impaired Diagnostics Vital Signs (24Hr): Vital Signs - 24 hr 06/02/20 19:15 06/03/20 05:50 06/03/20 08:49 Temperature 96.8 F 97.7 F Pulse Rate 94 81 81 Respiratory Rate 16 Blood Pressure 130/62 117/71 117/71 Pulse Oximetry 96 Body Mass Index 27.8 Labs Results: 05/12/20 10:49 05/21/20 13:56 Imaging Radiology Impressions: ITS Impressions Chest X-Ray 05/12/20 00:00 IMPRESSION: No acute cardiopulmonary findings. Head CT 05/12/20 00:00 IMPRESSION: No acute findings. 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 Hand X-Ray 05/24/20 00:00 IMPRESSION: No acute abnormality of the right hand Medications Medications Current Medications Generic Name Dose Route Start Last Admin Trade Name Freq PRN Reason Stop Dose Admin Acetaminophen 650 mg 04/04/20 21:36 06/03/20 05:38 Acetaminophen 325 Mg Tablet PO 650 mg Q6H PRN Administration Headache/Pain Mild Scale (1-3) Al Hydroxide/Mg Hydroxide 30 ml 04/04/20 21:36 Magnesium Hydrox/Alum Hydrox 30 Ml Oral.Susp PO Q6H PRN Heartburn/Nausea Atenolol 25 mg 05/22/20 09:00 06/03/20 08:49 Atenolol 25 Mg Tablet PO 25 mg DAILY [facility] Administration Protocol Divalproex Sodium 250 mg 05/26/20 09:00 06/03/20 08:49 Divalproex Sodium Er 250 Mg Tab.Er.24h PO 250 mg DAILY [facility] Administration Divalproex Sodium 500 mg 05/26/20 19:00 06/02/20 21:55 Divalproex Sodium Er 500 Mg Tab.Er.24h PO 500 mg DAILY@1900 [facility] Administration Donepezil HCl 5 mg 05/20/20 21:00 06/02/20 21:56 Donepezil Hcl 5 Mg Tablet PO 5 mg BEDTIME [facility] Administration Hydroxyzine HCl 25 mg 04/04/20 21:36 05/27/20 02:05 Hydroxyzine Hcl 25 Mg Tablet PO 25 mg BEDTIME PRN Administration Anxiety Magnesium Hydroxide 30 ml 04/04/20 21:36 Milk Of Magnesia 30 Ml Oral.Susp PO DAILY PRN Constipation Memantine 5 mg 05/22/20 13:00 06/03/20 08:49 Memantine Hcl 5 Mg Tablet PO 5 mg DAILY [facility] Administration Mirtazapine 7.5 mg 05/28/20 21:00 06/02/20 21:55 Mirtazapine 7.5 Mg Tablet PO 7.5 mg BEDTIME [facility] Administration Trazodone HCl 50 mg 04/04/20 21:36 05/27/20 02:05 Trazodone Hcl 50 Mg Tablet PO 50 mg BEDTIME PRN Administration Insomnia Allergies Allergies Allergy/AdvReac Type Severity Reaction Status Date / Time No Known Allergies Allergy Verified 04/02/20 20:21 [No Known Allergies*] Assessment & Plan Assessment & Plan (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 Code(s): F09 - Unspecified mental disorder due to known physiological condition; F07.89 - Other personality and behavioral disorders due to known physiological condition (2) Cognitive impairment: Status: Acute Code(s): R41.89 - Other symptoms and signs involving cognitive functions and awareness (3) Atypical depressive disorder: Status: Acute Code(s): F32.89 - Other specified depressive episodes (4) Seizure disorder: Status: Acute Code(s): G40.909 - Epilepsy, unspecified, not intractable, without status epilepticus Assessment and Plan: inc depakote inc mirtazapine Greater than 50% of the session was spent on counseling and/or coordination of care
[2020-06-03 18:00] VITALS: BP 140/69; PULSE 88; TEMP 36.2
[2020-06-03] MEDS: Divalproex Sodium ER 500 MG TAB.ER.24H PO (19:10)
[2020-06-03] MEDS: Donepezil HCl 5 MG TABLET PO (21:36)
[2020-06-03] MEDS: Mirtazapine 7.5 MG TABLET 15 MG PO (21:36)
[2020-06-04] MEDS: traZODone HCL 50 MG TABLET PO (03:11)
[2020-06-04] MEDS: hydrOXYzine HCL 25 MG TABLET PO ×2 (03:11→17:27)
[2020-06-04 03:15] VITALS: BP 139/79; PULSE 76; RESP 16; TEMP 36.1; O2SAT 97
[2020-06-04] MEDS: Acetaminophen 325 MG TABLET 650 MG PO ×2 (03:22→17:37)
[2020-06-04 08:53] LABS: Glucose Fasting 108 mg/dL (60-99)
[2020-06-04] MEDS: Memantine HCl 5 MG TABLET PO (08:54)
[2020-06-04] MEDS: Divalproex Sodium ER 500 MG TAB.ER.24H PO ×2 (08:54→20:57)
[2020-06-04 09:04] VITALS: BP 157/74; PULSE 88
[2020-06-04] MEDS: atenoloL 25 MG TABLET PO (09:04)
--- NOTE | 2020-06-04 09:44 | HO.PSYCHPN ---
Subjective Subjective Date of Service: 06/04/20 Reason For Visit: depression si hi Subjective Notes: Conditional Voluntary Interim History: patient has been intermittently agitated seems triggered by other patients on the unit feel safe for discharge tomorrow Medication Compliance: Yes Side effects from medications: No Attending Groups: No Review of Systems Reports Normal hearing present Reports as per HPI and Reports Normal hearing present Mental Status Exam Mental Status Exam Narrative: mildly unkempt, angry and irritable Patient Appearance: Disheveled Patient Orientation: Person and Place Level of Consciousness: Awake Patient Behavior: Passive Mood Description: Anxious Affect Description: Hostile Patient Cognition Impaired: Yes Ability to Follow Directions: Fair Speech Pattern: Rambling Memory Description: Episodic Impaired Diagnostics Vital Signs (24Hr): Vital Signs - 24 hr 06/03/20 18:00 06/04/20 03:15 06/04/20 09:04 Temperature 97.2 F 97.0 F Pulse Rate 88 76 88 Respiratory Rate 16 Blood Pressure 140/69 H 139/79 157/74 H Pulse Oximetry 97 Body Mass Index 27.8 Labs Results: 05/12/20 10:49 05/21/20 13:56 Labs: Laboratory Results - last 48 hr 06/04/20 08:06 Fasting Glucose 108 H D Imaging Radiology Impressions: ITS Impressions Chest X-Ray 05/12/20 00:00 IMPRESSION: No acute cardiopulmonary findings. Head CT 05/12/20 00:00 IMPRESSION: No acute findings. 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 Hand X-Ray 05/24/20 00:00 IMPRESSION: No acute abnormality of the right hand Medications Medications Current Medications Generic Name Dose Route Start Last Admin Trade Name Freq PRN Reason Stop Dose Admin Acetaminophen 650 mg 04/04/20 21:36 06/04/20 03:22 Acetaminophen 325 Mg Tablet PO 650 mg Q6H PRN Administration Headache/Pain Mild Scale (1-3) Al Hydroxide/Mg Hydroxide 30 ml 04/04/20 21:36 Magnesium Hydrox/Alum Hydrox 30 Ml Oral.Susp PO Q6H PRN Heartburn/Nausea Atenolol 25 mg 05/22/20 09:00 06/04/20 09:04 Atenolol 25 Mg Tablet PO 25 mg DAILY [facility] Administration Protocol Divalproex Sodium 500 mg 05/26/20 19:00 06/03/20 19:10 Divalproex Sodium Er 500 Mg Tab.Er.24h PO 500 mg DAILY@1900 [facility] Administration Divalproex Sodium 500 mg 06/04/20 09:00 06/04/20 08:54 Divalproex Sodium Er 500 Mg Tab.Er.24h PO 500 mg DAILY [facility] Administration Donepezil HCl 5 mg 05/20/20 21:00 06/03/20 21:36 Donepezil Hcl 5 Mg Tablet PO 5 mg BEDTIME [facility] Administration Hydroxyzine HCl 25 mg 04/04/20 21:36 06/04/20 03:11 Hydroxyzine Hcl 25 Mg Tablet PO 25 mg BEDTIME PRN Administration Anxiety Magnesium Hydroxide 30 ml 04/04/20 21:36 Milk Of Magnesia 30 Ml Oral.Susp PO DAILY PRN Constipation Memantine 5 mg 05/22/20 13:00 06/04/20 08:54 Memantine Hcl 5 Mg Tablet PO 5 mg DAILY [facility] Administration Mirtazapine 15 mg 06/03/20 21:00 06/03/20 21:36 Mirtazapine 7.5 Mg Tablet PO 15 mg BEDTIME [facility] Administration Trazodone HCl 50 mg 04/04/20 21:36 06/04/20 03:11 Trazodone Hcl 50 Mg Tablet PO 50 mg BEDTIME PRN Administration Insomnia Allergies Allergies Allergy/AdvReac Type Severity Reaction Status Date / Time No Known Allergies Allergy Verified 04/02/20 20:21 [No Known Allergies*] Assessment & Plan Assessment & Plan (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
[2020-06-04 17:20] LABS: COVID-19 Test Negative (Negative)
[2020-06-04 17:28] VITALS: BP 137/75; PULSE 75; TEMP 37.1
[2020-06-04 19:13] LABS: Ammonia 28 umol/L (13-55)
[2020-06-04 19:27] LABS: Valproate 41.4 mcg/mL (50.0-100.0)
[2020-06-04] MEDS: Donepezil HCl 5 MG TABLET PO (21:44)
[2020-06-04] MEDS: Mirtazapine 7.5 MG TABLET 15 MG PO (21:45)
[2020-06-05 06:45] VITALS: BP 119/77; PULSE 92; RESP 18; TEMP 37; O2SAT 99
[2020-06-05 08:29] VITALS: BP 119/77; PULSE 92
[2020-06-05] MEDS: atenoloL 25 MG TABLET PO (08:29)
[2020-06-05] MEDS: Memantine HCl 5 MG TABLET PO (08:29)
[2020-06-05] MEDS: Divalproex Sodium ER 500 MG TAB.ER.24H PO (08:30)
[2020-06-05 09:27] LABS: Estimated Average Glucose 131 mg/dL; Hemoglobin A1c % 6.2 %
--- NOTE | 2020-06-05 11:09 | PM.PSYDC ---
DS: Providers Provider Date of admission: 04/04/20 15:48 Primary care physician: Unknown Physician Consults: 05/12/20 03:51 Consult to Neurology Routine Consulting Provider: 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 Problem details: executive fx impaired (2) Atypical depressive disorder: Status: Acute Problem details: periods of depression irritability impulsivity DS: Medications Discharge Medications Home Medications: Home Medications Medication Instructions Recorded Confirmed No Known Home Meds 04/02/20 04/02/20 Previous Rx's Medication Instructions Recorded atenolol 25 mg PO DAILY 30 Days #30 tab 06/04/20 divalproex 500 mg PO BID 30 Days #60 tab 06/04/20 donepezil 5 mg PO BEDTIME 30 Days #30 tab 06/04/20 memantine 10 mg PO DAILY 30 Days #30 tab 06/04/20 mirtazapine 7.5 mg PO BEDTIME 30 Days #30 tab 06/04/20 trazodone 50 mg PO BEDTIME PRN 30 Days #30 06/04/20 tab Discharge Plan Discharge Patient Disposition: Home Health Service Referrals: Dimitry Crouch MD [Physician] - 06/17/20 10:00 am (NEUROLOGY FOLLOW UP R/T SEIZURES) Physician,Unknown [Primary Care Provider] - (PT WILL BE SEEN AT THE FACILITY HE IS DISCHARGED TOO) Discharge Medications: New donepezil 5 mg Tablet 5 mg PO BEDTIME 30 Days Qty: 30 RF: 0 atenolol 25 mg Tablet 25 mg PO DAILY 30 Days Qty: 30 RF: 0 divalproex 500 mg Tablet Extended Release 24 Hr 500 mg PO BID 30 Days Qty: 60 RF: 0 trazodone 50 mg Tablet 50 mg PO BEDTIME PRN (Reason: Insomnia) 30 Days Qty: 30 RF: 0 memantine 10 mg tablet 10 mg PO DAILY 30 Days Qty: 30 RF: 0 mirtazapine 7.5 mg Tablet 7.5 mg PO BEDTIME 30 Days Qty: 30 RF: 0 No Action No Known Home Meds RF: 0 Discharge Orders: Discharge Order (Routine); Ordered 06/05/20 Ordered By: Juan Antonio Garcia Diet: other Activity on Discharge: As tolerated Patient Instructions: Depression (DC), Help Prevent Suicide in Older Adults (DC), Depression in Older Adults (DC) Stand Alone Forms: Community Support Discharge Date/Time: 06/05/20 12:10 Activity Restrictions/Additional Instructions: suggest no added sweet diet you will have a therapist to deal with emotional issues from the past that are bothering you Visit Report Forms: Patient Portal Discharge page Care Plan Goals: stable mood ability to enjoy things less anxiety no self harming thoughts Health Concerns: Depression with thoughts of self harm impulsivity possibly secondary to seizure disorder seizure activity on the EEG cognitive impairment impacting frustration tolerance and decision making Plan of Treatment: you will have therapy and psychiatric follow-up medical and neurologic follow-up you are on medication for memory and cognition you are on medication for depression and anxiety medication for seizure activity Mental Status Exam Mental Status Exam Narrative: the patient was happy for discharge and seemed okay about the transition. He was future oriented not talking about harm to himself was missing his sister and was eager to talk to her. The patient still had recollections regarding his childhood and feelings about being denigrated by his father but this seemed to be in better perspective. He was open to therapy regarding this. His language function was intact he at times he sees seem to have difficulty weighing information particularly in regard to money and interpersonal issues. He patient's mood was mildly apprehensive future oriented not psychotic impulse control intact Patient Appearance: Disheveled Patient Orientation: Person and Place Level of Consciousness: Awake Mood Description: Anxious Affect Description: Hostile Patient Cognition Impaired: Yes Ability to Follow Directions: Fair Speech Pattern: Rambling Memory Description: Episodic Impaired Data Data Completed and Pending Completed studies during hospitalization [Text1]: 06/04/20 06/04/20 06/04/20 08:06 16:30 18:49 Fasting Glucose 108 H D Estimat Average Glucose Hemoglobin A1c % Ammonia 28 Valproic Acid COVID-19 ([facility]) Negative COVID-19 Clin Com See Note 06/04/20 06/04/20 18:49 18:49 Fasting Glucose Estimat Average Glucose 131 Hemoglobin A1c % 6.2 Ammonia Valproic Acid 41.4 L COVID-19 ([facility]) COVID-19 Clin Com Imaging Diagnostic Imaging Impressions Chest X-Ray 05/12/20 00:00 IMPRESSION: No acute cardiopulmonary findings. Head CT 05/12/20 00:00 IMPRESSION: No acute findings. 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 Hand X-Ray 05/24/20 00:00 IMPRESSION: No acute abnormality of the right hand DS: Summary Hospital Course Hospital Course: HPI Chief Complaint: depression si hi Sources of Information: patient interviewed, chart reviewed and crisis/core team assessment reviewed HPI Narrative: the patient is a 69-year-old male referred initially for crisis evaluation by [facility] due to the patient reportedly making statements about murdering his sister and then killing himself. The patient reportedly has some dementia has had difficulty managing his home his finances and his sister reportedly has more significant dementia than he does. There is no reported history of psychiatric care. The patient reportedly had recently been agitated at [employer] and was cited for disturbing the peace and banned from [employer]. There is no reported history of violence. Patient's PCP is Dr. 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 [phone] extension 350 [facility] Surgical History History of amputation of finger of right hand Family History: dementia Social History: patient worked for much of his life he has to work for [employer] in the [employer] admit department. He has never has no children he has been living with his sister his whole life Substance History: no alcohol or substance abuse Trauma History: father was demeaning to [facility] COURSE THE PATIENT WAS ADMITTED ON A CONDITIONAL VOLUNTARY after reportedly making statements about harming himself and his sister. The patient had been overwhelmed having difficulty managing his bills the has had reportedly been condemned his sister reportedly had significant dementia . Patient has no reported prior psychiatric history. He was evaluated by neuropsychology judgment executive functioning was impaired. 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 [place] cognitive assessment did not show marked impairment patient had difficulty with attention impulsivity interpersonal functioning periods of depression and despair. He was sensitive to rejection including with patients on the unit and was preoccupied with perceived rejection and intrusive recollections regarding his relationship with his father from childhood. Patient had difficulty with attention executive functioning. Patient did have 1 syncopal episode and EEG showed sharp wave activity and he was started on Depakote for impulsivity and perceived question of seizure activity the patient was started on mirtazapine for depression and PTSD symptoms he seemed to do best on 7.5 mg. Aricept and Namenda were started for atypical dementia who he was not classic for Lashonda hyper type dementia there were no unilateral findings. He did have some knee arthritis . He had worked for many years at [employer] but stated he had never managed his own monies or bills. Is unclear how much patient is poor judgment related to prior impairments. He had been appointed a guardian. The patient had continued rejection sensitivity with other patients but seemed stable for discharge he was overwhelmed that transitioning from the house he had lived in his whole life. Was explained to him that he would not need to manage things like buying food threatened paying bills he seemed much relieved and he did do well generally with social interaction with people who were stable. He was eager for connection and it did seem like the psychiatric unit eventually was more triggering for him. The [facility] was [facility]. He had also been put on a beta-rayne for reactivity impulsivity and mild hypertension he was much more stable at the time of discharge recommend blood sugar be monitored his hemoglobin A1c was 6.2 Time Spent with Patient Time attestation: Total time spent providing and/or coordinating discharge services:
== END 2020-06-05 12:10 | disposition home health service (06) | DRG 885 ==
LOC: HO.ED 04-04 15:45 → HO.PM5 04-04 15:58
PROVIDERS: Family Medicine; Nurse Practitioner Primary Care; Admitting Provider Psychiatry & Neurology Psychiatry; Emergency Provider Internal Medicine; Visit Provider Psychiatry & Neurology Psychiatry
DX: F32.89 Other specified depressive episodes (principal); R45.851 Suicidal ideations; F03.90 Unspecified dementia, unspecified severity, without behavioral disturbance, psychotic disturbance, mood disturbance, and anxiety; F43.10 Post-traumatic stress disorder, unspecified; F07.89 Other personality and behavioral disorders due to known physiological condition; Z20.828 Contact with and (suspected) exposure to other viral communicable diseases; Z23 Encounter for immunization; G40.909 Epilepsy, unspecified, not intractable, without status epilepticus; I10 Essential (primary) hypertension
CPT/HCPCS: 36415; 70450; 70551; 71045; 71046; 73130; 80048; 80053; 80061; 80076; 80164; 80307; 80320; 81001; 81003; 82140; 82607; 82746; 82947; 83036; 83690; 84443; 85025; 85027; 86780; 87635; 90686; 93005; 95819; 99223; 99231; 99232; 99233; 99239; 99285; J1953; J2060

== ENCOUNTER 2020-08-16 17:03 | Emergency (ER) | payer MEDICARE, SELFPAY ==
[2020-08-16 17:20] VITALS: BP 121/69; BP 132/68; PULSE 80; RESP 20; TEMP 37.1; O2SAT 95; BMI 27.2
--- NOTE | 2020-08-16 19:09 | ED.PSYCH ---
HPI - Psych General Chief Complaint: Psychiatric Symptoms Stated Complaint: crisis Time Seen by Provider: 08/16/20 17:15 Source: EMS Mode of arrival: EMS Limitations: no limitations History of Present Illness HPI Narrative: 69-year-old male who resides at [facility] in [place] apparently has history of depression, anxiety, seizure disorder presenting via EMS from [facility] rest home after he became agitated after a call from court date apparently upset and made vague SI statements. Upon arrival he states this is our frustration he sometimes has tendency of express himself in such way and denies any SI or HI. States he has otherwise been doing okay. He denies any illicit drugs or alcohol use. MD complaint: suicidal ideation and anxiety Duration: intermittent History of same: Yes Relieving factors: none Exacerbating factors: none Associated psychiatric symptoms: none Associated symptoms: denies other symptoms Treatments prior to arrival: none Related Data Home Medications Medication Instructions Recorded Confirmed No Known Home Meds 04/02/20 04/02/20 Previous Rx's Medication Instructions Recorded atenolol 25 mg PO DAILY 30 Days #30 tab 06/04/20 divalproex 500 mg PO BID 30 Days #60 tab 06/04/20 donepezil 5 mg PO BEDTIME 30 Days #30 tab 06/04/20 memantine 10 mg PO DAILY 30 Days #30 tab 06/04/20 mirtazapine 7.5 mg PO BEDTIME 30 Days #30 tab 06/04/20 trazodone 50 mg PO BEDTIME PRN 30 Days #30 06/04/20 tab Allergies Allergy/AdvReac Type Severity Reaction Status Date / Time No Known Allergies Allergy Verified 04/02/20 20:21 [No Known Allergies*] Review of Systems Review of Systems: Constitutional: No Weight loss, No Fever, No Chills, No Night Sweats, No Fatigue, No Malaise ENT/Mouth: No Hearing loss, No Ear Pain, No Nasal Congestion, No Sinus Pain, No Hoarseness, No sore throat, No Rhinorrhea, No Swallowing Difficulty Eyes: No Eye Pain, No Swelling, No Redness, No Foreign Body, No Discharge, No Vision Changes Cardiovascular: No Chest Pain, No SOB, No Dyspnea on Exertion, No Orthopnea, No Edema, No Palpitations Respiratory: No Cough, No Sputum, No Wheezing, No Dyspnea Gastrointestinal: No Nausea, No Vomiting, No Diarrhea, No Constipation, No abdominal Pain, No Hematochezia, No Melena Genitourinary: no irregular bleeding, No Dysuria, No Urinary Frequency, No Hematuria, No Urinary Incontinence, No Urgency, No Flank Pain, No Urinary Flow Changes, No Hesitancy Musculoskeletal: No joint pain, No Myalgias, No Joint Swelling Skin: No Skin Lesions, No rash Neuro: No Weakness, No Numbness, No Paresthesias, No Loss of Consciousness, No Dizziness, No Headache Psych: Has known HPI Heme/Lymph: No Bruising, No Bleeding,No Lymphadenopathy Endocrine: No Polyuria, No Polydipsia, No Temperature Intolerance Yes all other systems are reviewed and are negative [facility] Past Medical History Medical History (Updated 08/16/20 @ 23:03 by Constantin Landers NP) Seizures Surgical History History of amputation of finger of right hand Family History Family History Mother Heart disease Father Hx of colostomy Social History Social History (Updated 04/05/20 @ 16:21 by Linus Ken RN) Household Members: Family Housing: House Alcohol intake: unknown Smoking Status: Never smoker Second Hand Smoke Exposure: No Advance Directives: No Advance Directives Information Provided: No service: No Sexual orientation: Straight/Heterosexual Physical Exam Vital Signs: Vital Signs: Last Vital Signs Temp 97.8 F 08/16/20 19:43 Pulse 100 08/16/20 19:43 Resp 18 08/16/20 19:43 BP 144/96 H 08/16/20 19:43 Pulse Ox 97 08/16/20 19:43 Body Mass Index 27.2 Reviewed Const: Other: Calm and pleasant General: cooperative and healthy appearing; No acute distress or intoxicated appearing Nutritional Appearance: average body habitus Orientation/consciousness: patient oriented x3 HENMT: Head: Yes normal to inspection Ears: hearing grossly normal bilaterally Eyes: General: appearance normal, both eyes and all related structures Visual Tiwari: normal visual tiwari by confrontation Neck: Neck: Yes normal visual inspection, No positive Brudzinski's sign, No positive Kernig's sign and No tender Thyroid: Thyroid normal Chest: Chest palpation & inspection: normal inspection of the chest Resp: Effort & Inspection: normal respiratory effort Auscultation: clear to auscultation bilaterally Cardio: Jugular venous distension: no JVD Rhythm: regular rhythm Heart sounds: S1 normal heart sound present and S2 normal heart sound present GI: Inspection: Yes normal to inspection Percussion: Yes normal to percussion Auscultation: normal bowel sounds : General: Yes no CVA tenderness Back/Spine/Pelvis: Back: no CVA tenderness Skin: General skin exam: no rashes or lesions noted Neuro: General: patient oriented x3 Extrem: General: Yes normal to inspection Course Course Course Narrative: Offers no medical complaints. States made vague SI statement out of frustration during a call from court. States he would never do anything to hurt himself or anybody else. States his depression has been well managed since last visit. He is agreeable that medical screening labs will need to be collected and psychiatric evaluation. Reevaluation(s) Reevaluation #1: Labs stable. Has been common cooperative offers no complaints. Remains in hospital attire with sitter. Awaiting crisis evaluation. Consultations Consultation #1: Evaluated care team, clear for discharge with outpatient services. No SI or HI. Contracts for safety. Cleared to return back to rest home. Care team spoke to the rest home arrange for transport back MDM - Psych Lab Data Result diagrams: 08/16/20 20:41 08/16/20 20:41 Labs: Lab Results 08/16/20 08/16/20 08/16/20 Range/Units 20:30 20:30 20:41 WBC 7.1 (4.8-10.8) X10*3/uL RBC 4.63 (4.60-5.80) X10*6/uL Hgb 14.6 (14.0-18.0) g/dl Hct 43.0 (42-52) % MCV 92.9 (80-98) fL MCH 31.5 (27.0-33.0) pg MCHC 34.0 (31.0-36.0) g/dl RDW 12.1 (11.0-16.0) % Plt Count 149 L (160-400) X10*3/uL MPV 10.0 (9.4-12.4) fL Immature Gran % (Auto) 0.6 H (0.0-0.4) % Neut % (Auto) 54.3 (45-73) % Lymph % (Auto) 29.9 (20-40) % [place] % (Auto) 12.5 H (2-11) % Eos % (Auto) 2.3 (0-4) % Baso % (Auto) 0.4 (0-2) % Lymph # (Auto) 2.1 (1.2-4.9) X10*3/uL [place] # (Auto) 0.9 (0.1-1.2) X10*3/uL Eos # (Auto) 0.2 (0.0-0.4) X10*3/uL Baso # (Auto) 0.0 (0.0-0.2) X10*3/uL Abs Immat Gran (auto) 0.04 H (0.00-0.03) X10*3/uL Absolute Neuts (auto) 3.8 (2.0-8.3) X10*3/uL Absolute Nucleated RBC 0.000 (0.0-0.012) X10*3/uL Nucleated RBC % (auto) 0.0 (0.0-0.2) /100WBC Sodium (135-145) mmol/L Potassium (3.3-5.1) mmol/L Chloride (96-108) mmol/L Carbon Dioxide (22-29) mmol/L Anion Gap (12-20) BUN (9-16) mg/dL Creatinine (0.5-1.4) mg/dL Estim Creat Clear Calc Estimated GFR Random Glucose (60-115) mg/dL Calcium (8.4-10.2) mg/dL Total Bilirubin (0.0-1.0) mg/dL AST (5-37) U/L ALT (0-40) U/L Alkaline Phosphatase (39-117) U/L Total Protein (6.5-8.0) g/dL Albumin (3.5-5.0) g/dL Urine Color YELLOW Urine Appearance CLEAR Urine pH 6.0 (5.0-8.0) Ur Specific [place] 1.025 (1.005-1.025) Urine Protein NEG (NEG-TRACE) MG/DL Urine Glucose (UA) NEG (NEG) MG/DL Urine Ketones 5 (NEG) MG/DL Urine Blood TRACE (NEG) Urine Nitrite NEG (NEG) Ur Leukocyte Esterase NEG (NEG) Urine RBC 0-2 (0) /HPF Urine WBC 0 (0-4) /HPF Ur Squamous Epith Cells NONE /LPF Urine Bacteria TRACE /LPF Urine Opiates Screen Not Detected (Not Detect) Ur Barbiturates Screen Not Detected (Not Detect) Ur Phencyclidine Scrn Not Detected (Not Detect) Ur Amphetamines Screen Not Detected (Not Detect) U Benzodiazepines Scrn Not Detected (Not Detect) Urine Cocaine Screen Not Detected (Not Detect) U Marijuana (THC) Screen Not Detected (Not Detect) 08/16/20 Range/Units 20:41 WBC (4.8-10.8) X10*3/uL RBC (4.60-5.80) X10*6/uL Hgb (14.0-18.0) g/dl Hct (42-52) % MCV (80-98) fL MCH (27.0-33.0) pg MCHC (31.0-36.0) g/dl RDW (11.0-16.0) % Plt Count (160-400) X10*3/uL MPV (9.4-12.4) fL Immature Gran % (Auto) (0.0-0.4) % Neut % (Auto) (45-73) % Lymph % (Auto) (20-40) % [place] % (Auto) (2-11) % Eos % (Auto) (0-4) % Baso % (Auto) (0-2) % Lymph # (Auto) (1.2-4.9) X10*3/uL [place] # (Auto) (0.1-1.2) X10*3/uL Eos # (Auto) (0.0-0.4) X10*3/uL Baso # (Auto) (0.0-0.2) X10*3/uL Abs Immat Gran (auto) (0.00-0.03) X10*3/uL Absolute Neuts (auto) (2.0-8.3) X10*3/uL Absolute Nucleated RBC (0.0-0.012) X10*3/uL Nucleated RBC % (auto) (0.0-0.2) /100WBC Sodium 141 (135-145) mmol/L Potassium 4.2 (3.3-5.1) mmol/L Chloride 105 (96-108) mmol/L Carbon Dioxide 26 (22-29) mmol/L Anion Gap 14 (12-20) BUN 11 (9-16) mg/dL Creatinine 0.86 (0.5-1.4) mg/dL Estim Creat Clear Calc 83.7 Estimated GFR > 60 Random Glucose 118 H (60-115) mg/dL Calcium 8.7 (8.4-10.2) mg/dL Total Bilirubin 0.4 (0.0-1.0) mg/dL AST 17 (5-37) U/L ALT 17 (0-40) U/L Alkaline Phosphatase 51 (39-117) U/L Total Protein 6.7 (6.5-8.0) g/dL Albumin 4.0 (3.5-5.0) g/dL Urine Color Urine Appearance Urine pH (5.0-8.0) Ur Specific [place] (1.005-1.025) Urine Protein (NEG-TRACE) MG/DL Urine Glucose (UA) (NEG) MG/DL Urine Ketones (NEG) MG/DL Urine Blood (NEG) Urine Nitrite (NEG) Ur Leukocyte Esterase (NEG) Urine RBC (0) /HPF Urine WBC (0-4) /HPF Ur Squamous Epith Cells /LPF Urine Bacteria /LPF Urine Opiates Screen (Not Detect) Ur Barbiturates Screen (Not Detect) Ur Phencyclidine Scrn (Not Detect) Ur Amphetamines Screen (Not Detect) U Benzodiazepines Scrn (Not Detect) Urine Cocaine Screen (Not Detect) U Marijuana (THC) Screen (Not Detect) Discharge Plan Discharge Clinical Impression: Acute anxiety Patient Disposition: Home, Self-Care Instructions: Anxiety (ED) Additional Instructions: Please follow-up with outpatient providers discussed Return if any concerns or worsening Prescriptions: No Action No Known Home Meds RF: 0 donepezil 5 mg Tablet 5 mg PO BEDTIME 30 Days Qty: 30 RF: 0 atenolol 25 mg Tablet 25 mg PO DAILY 30 Days Qty: 30 RF: 0 divalproex 500 mg Tablet Extended Release 24 Hr 500 mg PO BID 30 Days Qty: 60 RF: 0 trazodone 50 mg Tablet 50 mg PO BEDTIME PRN (Reason: Insomnia) 30 Days Qty: 30 RF: 0 memantine 10 mg tablet 10 mg PO DAILY 30 Days Qty: 30 RF: 0 mirtazapine 7.5 mg Tablet 7.5 mg PO BEDTIME 30 Days Qty: 30 RF: 0 Referrals: Itz Knox MD [Primary Care Provider] - 2 days
[2020-08-16 19:43] VITALS: BP 144/96; PULSE 100; RESP 18; TEMP 36.6; O2SAT 97
[2020-08-16 20:37] LABS: Appearance Urine CLEAR; Color Urine YELLOW; Glucose Urine UA NEG (NEG); Leukocyte Esterase Urine NEG (NEG); Nitrite Urine NEG (NEG); Specific Gravity - Urine 1.025 (1.005-1.025); Urine Blood TRACE (NEG); Urine Ketones 5 MG/DL (NEG); Urine Protein NEG (NEG-TRACE)
[2020-08-16 20:43] LABS: Bacteria Urine TRACE /LPF; RBC Urine 0-2 /HPF (0); WBC Urine 0 /HPF (0-4)
[2020-08-16 21:09] LABS: Amphetamine Screen Urine Not Detected (Not Detect); Barbiturates, Urine Not Detected (Not Detect); Benzodiazepines Screen Urine Not Detected (Not Detect); Cannabinoid Screen Urine Not Detected (Not Detect); Cocaine Screen Urine Not Detected (Not Detect); Opiate Screen Urine Not Detected (Not Detect); Phencyclidine Screen Urine Not Detected (Not Detect)
[2020-08-16 21:27] LABS: MANUAL DIFF FLAG NO
[2020-08-16 21:28] LABS: Basophils Percent Auto 0.4 % (0-2); Eosinophils Absolute Auto 0.2 X10*3/uL (0.0-0.4); Eosinophils Percent Auto 2.3 % (0-4); Hemoglobin 14.6 g/dl (14.0-18.0); Imm Gran Abs Auto 0.04 X10*3/uL (0.00-0.03); Imm Gran Pct Auto 0.6 % (0.0-0.4); Lymphocytes Absolute Auto 2.1 X10*3/uL (1.2-4.9); Lymphocytes Percent Auto 29.9 % (20-40); Mean Corpuscular Hemoglobin 31.5 pg (27.0-33.0); Mean Corpuscular Volume 92.9 fL (80-98); Monocytes Absolute Auto 0.9 X10*3/uL (0.1-1.2); Monocytes Percent Auto 12.5 % (2-11); Neutrophils Absolute Auto 3.8 X10*3/uL (2.0-8.3); Neutrophils Percent Auto 54.3 % (45-73); Platelet Count 149 X10*3/uL (160-400); Red Blood Count 4.63 X10*6/uL (4.60-5.80); Red Cell Distribution Width 12.1 % (11.0-16.0); White Blood Count 7.1 X10*3/uL (4.8-10.8)
[2020-08-16 21:53] LABS: Alanine Aminotransferase 17 U/L (0-40); Alkaline Phosphatase 51 U/L (39-117); Anion Gap 14 (12-20); Aspartate Amino Transferase 17 U/L (5-37); Bilirubin Total 0.4 mg/dL (0.0-1.0); Blood Urea Nitrogen 11 mg/dL (9-16); Calcium 8.7 mg/dL (8.4-10.2); Carbon Dioxide 26 mmol/L (22-29); Chloride 105 mmol/L (96-108); Creatinine Clr Calc Pharmacy 83.7; Estimated Glomerular Filt Rate > 60; Glucose Random 118 mg/dL (60-115); Potassium 4.2 mmol/L (3.3-5.1); Sodium 141 mmol/L (135-145); Total Protein 6.7 g/dL (6.5-8.0)
--- NOTE | 2020-08-16 22:32 | PC.NURSE ---
PATIENT EVALUATED BY HEATHER (OJ), Vicenta SPOKE WITH [facility] STAFF, ACCEPTING PATIENT BACK, BY AMBULANCE ONLY. NO STAFF FROM [facility] THAT IS ABLE TO PROVIDE TRANSPORTATION AT THIS TIME. PT A&OX4, CALM/COOPERATIVE, SPEAKING IN FULL SENTENCES. IN BEHAVIORAL CONTROL. WILL CONTINUE TO MONITOR.
--- NOTE | 2020-08-16 22:40 | MHC.CARE ---
CARE team met with pt to screen for crisis risk assessment. Pt arrived to [facility] due to making a suicidal statement such as threatening to jump out of the window, after a phone call with his provider. Pt reports he is lonely and has no family left . Pt reports that he notices that everyone receives packages at his rest home and he doesn't which makes him depressed. Pt states he also learned today of an upcoming court date, and the girl he has been seeing in his rest home had been watching DVD's with a new resident and it made him jealous . Pt reports he became frustrated today, confirmed he made suicidal statements but denies any intent. He reports feeling frustrated and banging on the uribe. He recognizes that he was upset and frustrated today. Pt has been in behavioral control in the ED, calm and cooperative with no issues to report. Pt denies current SI/HI and has been compliant with his medications. CARE team talked with [facility] certified [facility] administrator Margarito who reports concerns that pt had an extreme reaction and something she had not seen from him before and at the time was unable to be de-escalated. [facility] is open to pt returning back to facility, but requests he come back in an ambulance which will be facilitated by Pat. My recommendation was verbalized to Margarito to follow up with pt's psychiatric provider.
--- NOTE | 2020-08-17 | ECG_ITS ---
Test Reason : CHEST DISCOMFORT Blood Pressure : / mmHG Vent. Rate : 073 BPM Atrial Rate : 073 BPM P-R Int : 156 ms QRS Dur : 090 ms QT Int : 388 ms P-R-T Axes : 042 -52 012 degrees QTc Int : 427 ms Normal sinus rhythm Left anterior fascicular block Minimal voltage criteria for LVH, may be normal variant Abnormal ECG When compared with ECG of 02-APR-2020 18:56, No significant change was found Referred By: Generic ED Physician Electronically Signed By:SHEELA RICHMOND
== END 2020-08-16 23:21 | disposition home or self-care (01) ==
PROVIDERS: Nurse Practitioner Primary Care; Emergency Provider Emergency Medicine; PCP Internal Medicine
DX: F41.9 Anxiety disorder, unspecified (principal); R45.851 Suicidal ideations
CPT/HCPCS: 36415; 80053; 80307; 81001; 85025; 93005; 99283; 99284

== ENCOUNTER 2020-12-04 10:14 | Emergency (ER) | payer MEDICARE, SELFPAY ==
--- NOTE | ~2020-12-04 | XR_ITS ---
EXAMINATION: XR SHOULDER, LEFT CLINICAL INFORMATION: Pain. COMPARISON: None TECHNIQUE: AP external rotation, Grashey, scapular Y, and axillary views of the left shoulder. FINDINGS: There is mild reduction in the glenohumeral and left AC joint space with mild periapical spurring in the left AC joint. No loose bodies, bony erosive changes or acute fracture seen. There is no dislocation. The soft tissues are normal. XR/XR shoulder LT min 2V IMPRESSION: Mild degenerative changes left AC and glenohumeral joint space with periapical spurring left AC joint. No acute fracture or dislocation.
--- NOTE | 2020-12-04 10:23 | ED_ITS ---
HPI - Psych General Chief Complaint: Psychiatric Symptoms Stated Complaint: CRISIS Time Seen by Provider: 12/04/20 10:23 History of Present Illness MD complaint: suicidal ideation and feels depressed Onset (ago): day(s) (2) Duration: constant History of same: Yes Relieving factors: none Exacerbating factors: other (thinking about the past) Context: significant life stressor Associated psychiatric symptoms: depression, suicidal ideation and auditory hallucinations Associated symptoms: denies other symptoms Treatments prior to arrival: none If self harm: admits thoughts of self harm Related Data Home Medications Medication Instructions Recorded Confirmed memantine 5 mg PO DAILY 12/04/20 12/04/20 mirtazapine 30 mg PO BEDTIME 12/04/20 12/04/20 Previous Rx's Medication Instructions Recorded atenolol 25 mg PO DAILY 30 Days #30 tab 06/04/20 divalproex 500 mg PO BID 30 Days #60 tab 06/04/20 Allergies Allergy/AdvReac Type Severity Reaction Status Date / Time No Known Allergies Allergy Verified 04/02/20 20:21 [No Known Allergies*] Review of Systems Review of Systems: Constitutional : No Fever, No Chills ENT/Mouth : No Ear Pain, No Nasal Congestion, No sore throat Eyes: No Eye Pain, No Swelling, No Redness Cardiovascular : No Chest Pain, No SOB Respiratory : No Cough, No Sputum, No Dyspnea Gastrointestinal : No Nausea, No Vomiting, No Diarrhea, No Hematochezia, No Melena Genitourinary : No Dysuria, No Urinary Frequency, No Hematuria Musculoskeletal : No Myalgias Skin : No Skin Lesions, No rash Neuro : No Weakness, No Numbness, No Paresthesias, No Dizziness, No Headache Psych : positive Anxiety, positive Depression, positive SI no HI Heme/Lymph: No Lymphadenopathy Endocrine : No Polyuria, No Polydipsia All other systems reviewed and are negative PMFSH Past Medical History Attestation statement: The following information was validated with the patient. 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 Surgical History History of amputation of finger of right hand Family History Family History Mother Heart disease Father Hx of colostomy Social History Social History (Updated 12/04/20 @ 10:25 by Isidra Duran DO) Household Members: Family Housing: House Are you a primary home care companion to a significant other at home: No Do you presently have visiting nurse or other home services: No Unable to assess alcohol history related to: Unable to respond and Unknown Alcohol intake: unknown Patient Tobacco Use Status: Former Tobacco user Second Hand Smoke Exposure: No Use of substances other than those prescribed or required for medical reasons: No Advance Directives: No Advance Directives Information Provided: No service: No Sexual orientation: Straight/Heterosexual Physical Exam 2 Vital Signs: Vital Signs: Last Vital Signs Temp 98.4 F 12/04/20 10:25 Pulse 73 12/04/20 10:25 Resp 18 12/04/20 10:25 BP 113/64 12/04/20 10:25 Pulse Ox 96 12/04/20 10:25 Body Mass Index 30.4 Appearance: Alert. Oriented X3. No acute distress. Eyes: Pupils equal, round and reactive to light. ENT: Pharynx normal. Neck: Normal inspection. Neck supple. CVS: Normal heart rate and rhythm. Pulses normal. Respiratory: No respiratory distress. Breath sounds normal. Abdomen: Soft and non-tender. Skin: Skin warm and dry. Normal skin color. Normal skin turgor. Extremities: No lower extremity edema. No calf ttp Neuro: Oriented X 3. No motor deficit. No sensory deficit. Psych: + SI, no HI, positive anxiety/depression, pos hallucinations Course Course Course Narrative: Physician observation started at 150pm Patient placed in physician observation because the patient needed more time for crisis evaluation and to asses the need for psych admission. At the time observation was started the patient's vitals were stable, patient is alert and oriented calm and cooperative Neuro: nonfocal, CV RRR, Lungs clear signed out pending BHN consult MDM - Psych MDM Narrative Medical decision making narrative: 70 yo male with hx of HTN, cognitive impairment, depression hx of admission to [facility] for the same no medical complaints today but reports SI at this time will need labs, BHN consult, low susp for self harm in the ED continuous observation in ED needed. Lab Data Result diagrams: 12/04/20 11:24 12/04/20 11:24 Labs: Lab Results 12/04/20 12/04/20 12/04/20 Range/Units 11:24 11:24 11:24 WBC 6.6 (4.8-10.8) X10*3/uL RBC 4.57 L (4.60-5.80) X10*6/uL Hgb 14.2 (14.0-18.0) g/dl Hct 41.6 L (42-52) % MCV 91.0 (80-98) fL MCH 31.1 (27.0-33.0) pg MCHC 34.1 (31.0-36.0) g/dl RDW 11.9 (11.0-16.0) % Plt Count 139 L (160-400) X10*3/uL MPV 9.5 (9.4-12.4) fL Immature Gran % (Auto) 0.5 H (0.0-0.4) % Neut % (Auto) 55.6 (45-73) % Lymph % (Auto) 26.4 (20-40) % Mccormick % (Auto) 14.3 H (2-11) % Eos % (Auto) 2.7 (0-4) % Baso % (Auto) 0.5 (0-2) % Lymph # (Auto) 1.8 (1.2-4.9) X10*3/uL Mccormick # (Auto) 1.0 (0.1-1.2) X10*3/uL Eos # (Auto) 0.2 (0.0-0.4) X10*3/uL Baso # (Auto) 0.0 (0.0-0.2) X10*3/uL Abs Immat Gran (auto) 0.03 (0.00-0.03) X10*3/uL Absolute Neuts (auto) 3.7 (2.0-8.3) X10*3/uL Absolute Nucleated RBC 0.000 (0.0-0.012) X10*3/uL Nucleated RBC % (auto) 0.0 (0.0-0.2) /100WBC Sodium 136 (135-145) mmol/L Potassium 4.1 (3.3-5.1) mmol/L Chloride 107 (96-108) mmol/L Carbon Dioxide 23 (22-29) mmol/L Anion Gap 10 L (12-20) BUN 13 (9-16) mg/dL Creatinine 0.77 (0.5-1.4) mg/dL Estim Creat Clear Calc 97.6 Estimated GFR > 60 Random Glucose 98 (60-115) mg/dL Calcium 8.7 (8.4-10.2) mg/dL Magnesium 2.0 (1.6-2.6) mg/dL Total Bilirubin 0.5 (0.0-1.0) mg/dL Direct Bilirubin < 0.2 (0.0-0.5) mg/dL AST 18 (5-37) U/L ALT 11 (0-40) U/L Alkaline Phosphatase 47 (39-117) U/L Total Protein 6.4 L (6.5-8.0) g/dL Albumin 3.8 (3.5-5.0) g/dL TSH 1.82 (0.32-4.0) uIU/mL Valproic Acid (50.0-100.0) mcg/mL Ethyl Alcohol mg/dL COVID-19 ([facility]) Negative (Negative) COVID-19 Clin Com See Note 12/04/20 12/04/20 Range/Units 11:24 11:24 WBC (4.8-10.8) X10*3/uL RBC (4.60-5.80) X10*6/uL Hgb (14.0-18.0) g/dl Hct (42-52) % MCV (80-98) fL MCH (27.0-33.0) pg MCHC (31.0-36.0) g/dl RDW (11.0-16.0) % Plt Count (160-400) X10*3/uL MPV (9.4-12.4) fL Immature Gran % (Auto) (0.0-0.4) % Neut % (Auto) (45-73) % Lymph % (Auto) (20-40) % Mccormick % (Auto) (2-11) % Eos % (Auto) (0-4) % Baso % (Auto) (0-2) % Lymph # (Auto) (1.2-4.9) X10*3/uL Mccormick # (Auto) (0.1-1.2) X10*3/uL Eos # (Auto) (0.0-0.4) X10*3/uL Baso # (Auto) (0.0-0.2) X10*3/uL Abs Immat Gran (auto) (0.00-0.03) X10*3/uL Absolute Neuts (auto) (2.0-8.3) X10*3/uL Absolute Nucleated RBC (0.0-0.012) X10*3/uL Nucleated RBC % (auto) (0.0-0.2) /100WBC Sodium (135-145) mmol/L Potassium (3.3-5.1) mmol/L Chloride (96-108) mmol/L Carbon Dioxide (22-29) mmol/L Anion Gap (12-20) BUN (9-16) mg/dL Creatinine (0.5-1.4) mg/dL Estim Creat Clear Calc Estimated GFR Random Glucose (60-115) mg/dL Calcium (8.4-10.2) mg/dL Magnesium (1.6-2.6) mg/dL Total Bilirubin (0.0-1.0) mg/dL Direct Bilirubin (0.0-0.5) mg/dL AST (5-37) U/L ALT (0-40) U/L Alkaline Phosphatase (39-117) U/L Total Protein (6.5-8.0) g/dL Albumin (3.5-5.0) g/dL TSH (0.32-4.0) uIU/mL Valproic Acid 36.2 L (50.0-100.0) mcg/mL Ethyl Alcohol < 10 mg/dL COVID-19 ([facility]) (Negative) COVID-19 Clin Com ECG Data Attestation: I personally reviewed and interpreted this ECG as follows: ECG interpretation date: 12/04/20 ECG interpretation time: 10:53 Interpretation: Rate: 69 Rhythm: NSR [place]: left Normal P waves. Normal RAINA. Normal QRS complex. ST T wave : no MERA, nonspecific inf leads qTC: normal prior studies: no acute ischemia The study has been interpreted contemporaneously by me. . Discharge Plan Discharge Clinical Impression: Depression Qualifiers: Depression Type: unspecified Qualified Code(s): F32.9 - Major depressive disorder, single episode, unspecified Prescriptions: No Action memantine 5 mg tablet 5 mg PO DAILY RF: 0 mirtazapine 30 mg tablet 30 mg PO BEDTIME RF: 0 atenolol 25 mg Tablet 25 mg PO DAILY 30 Days Qty: 30 RF: 0 divalproex 500 mg Tablet Extended Release 24 Hr 500 mg PO BID 30 Days Qty: 60 RF: 0
[2020-12-04 10:25] VITALS: BP 113/64; BP 132/79; PULSE 73; PULSE 76; RESP 18; TEMP 36.9; O2SAT 96; O2SAT 97; BMI 30.4
--- NOTE | 2020-12-04 10:29 | ECG_ITS ---
Test Reason : PSYCH Blood Pressure : / mmHG Vent. Rate : 069 BPM Atrial Rate : 069 BPM P-R Int : 174 ms QRS Dur : 102 ms QT Int : 384 ms P-R-T Axes : 010 -47 -09 degrees QTc Int : 411 ms Normal sinus rhythm Left anterior fascicular block Minimal voltage criteria for LVH, may be normal variant Abnormal ECG When compared with ECG of 16-AUG-2020 22:05, No significant change was found Referred By: Vicky Tuttle Electronically Signed By:SHEELA RICHMOND
--- NOTE | 2020-12-04 10:50 | PC.NURSE ---
pt changed over into hospital attire, and belongings secured in the pod in the laundry room pt calm and cooperative at this time, sitter at bedside
[2020-12-04 11:28] LABS: MANUAL DIFF FLAG NO
[2020-12-04 11:31] LABS: Basophils Percent Auto 0.5 % (0-2); Eosinophils Absolute Auto 0.2 X10*3/uL (0.0-0.4); Eosinophils Percent Auto 2.7 % (0-4); Hematocrit 41.6 % (42-52); Hemoglobin 14.2 g/dl (14.0-18.0); Imm Gran Abs Auto 0.03 X10*3/uL (0.00-0.03); Imm Gran Pct Auto 0.5 % (0.0-0.4); Lymphocytes Absolute Auto 1.8 X10*3/uL (1.2-4.9); Lymphocytes Percent Auto 26.4 % (20-40); Mean Corpuscular HGB Conc 34.1 g/dl (31.0-36.0); Mean Corpuscular Hemoglobin 31.1 pg (27.0-33.0); Mean Platelet Volume 9.5 fL (9.4-12.4); Monocytes Percent Auto 14.3 % (2-11); Neutrophils Absolute Auto 3.7 X10*3/uL (2.0-8.3); Neutrophils Percent Auto 55.6 % (45-73); Platelet Count 139 X10*3/uL (160-400); Red Blood Count 4.57 X10*6/uL (4.60-5.80); Red Cell Distribution Width 11.9 % (11.0-16.0); White Blood Count 6.6 X10*3/uL (4.8-10.8)
--- NOTE | 2020-12-04 11:50 | PC.NURSE ---
pt resisting comfortably in the stretcher watching tv, calm and cooperative
[2020-12-04 12:02] LABS: Ethanol < 10 mg/dL
[2020-12-04 12:06] LABS: Alanine Aminotransferase 11 U/L (0-40); Albumin Level 3.8 g/dL (3.5-5.0); Alkaline Phosphatase 47 U/L (39-117); Anion Gap 10 (12-20); Aspartate Amino Transferase 18 U/L (5-37); Bilirubin Direct < 0.2 mg/dL (0.0-0.5); Bilirubin Total 0.5 mg/dL (0.0-1.0); Blood Urea Nitrogen 13 mg/dL (9-16); Calcium 8.7 mg/dL (8.4-10.2); Carbon Dioxide 23 mmol/L (22-29); Chloride 107 mmol/L (96-108); Creatinine Clr Calc Pharmacy 97.6; Estimated Glomerular Filt Rate > 60; Glucose Random 98 mg/dL (60-115); Potassium 4.1 mmol/L (3.3-5.1); Sodium 136 mmol/L (135-145); Total Protein 6.4 g/dL (6.5-8.0)
[2020-12-04 12:07] LABS: Valproate 36.2 mcg/mL (50.0-100.0)
[2020-12-04 12:12] LABS: COVID-19 Test Negative (Negative)
--- NOTE | 2020-12-04 12:14 | PC.NURSE ---
[facility] referral sent over electronically
[2020-12-04 12:27] LABS: TSH reflex Free T4 1.82 uIU/mL (0.32-4.0)
--- NOTE | 2020-12-04 12:47 | PC.NURSE ---
lelian recived electronic referral, they called and given additional information
--- NOTE | 2020-12-04 12:52 | MHC.CARE ---
Call from [facility] [employer], Eda, clinician assigned to evaluate this patient is starting shift at 1:00pm and be sent here
[2020-12-04 15:20] VITALS: BP 108/59; PULSE 72; RESP 16
--- NOTE | 2020-12-04 15:58 | PC.NURSE ---
[facility] at bedside evaluating the pt
[2020-12-04 17:20] LABS: Glucose Urine UA NEG (NEG); Leukocyte Esterase Urine NEG (NEG); Nitrite Urine NEG (NEG); PH 7.5 (5.0-8.0); Urine Blood NEG (NEG); Urine Ketones NEG (NEG); Urine Protein NEG (NEG-TRACE)
[2020-12-04 17:21] LABS: Appearance Urine CLEAR; Color Urine YELLOW
[2020-12-04 17:38] LABS: Amphetamine Screen Urine Not Detected (Not Detect); Barbiturates, Urine Not Detected (Not Detect); Benzodiazepines Screen Urine Not Detected (Not Detect); Cannabinoid Screen Urine Not Detected (Not Detect); Cocaine Screen Urine Not Detected (Not Detect); Opiate Screen Urine Not Detected (Not Detect); Phencyclidine Screen Urine Not Detected (Not Detect)
[2020-12-04 17:51] VITALS: BP 134/77; PULSE 74; RESP 18; TEMP 36.6; O2SAT 96
[2020-12-04 18:04] VITALS: BP 134/77; PULSE 74
[2020-12-04] MEDS: Memantine HCl 5 MG TABLET PO (18:04)
[2020-12-04] MEDS: atenoloL 25 MG TABLET PO (18:04)
== END 2020-12-04 20:10 | disposition skilled nursing facility (03) ==
PROVIDERS: Emergency Provider Emergency Medicine; PCP Internal Medicine; Referring Provider Nurse Practitioner Adult Health
DX: F32.9 Major depressive disorder, single episode, unspecified (principal); R45.851 Suicidal ideations; R44.0 Auditory hallucinations; I10 Essential (primary) hypertension; Z79.899 Other long term (current) drug therapy; Z20.822 Contact with and (suspected) exposure to COVID-19
CPT/HCPCS: 36415; 73030; 80048; 80076; 80164; 80307; 81003; 82077; 83735; 84443; 85025; 87635; 93005; 99285

== ENCOUNTER 2021-07-28 09:52 | Outpatient (REF) | payer MEDICARE, SELFPAY ==
--- NOTE | ~2021-07-28 | XR_ITS ---
EXAMINATION: X-RAY BILATERAL KNEES CLINICAL INFORMATION: Arthritis COMPARISON: Left knee 10/05/2019. Right knee 08/08/2008 TECHNIQUE: Bilateral knees each 4 views FINDINGS: Left knee: Severe medial compartment arthritis with marked joint space loss, osteophytes. Degenerative varus. Moderate lateral and severe patellofemoral arthritis. Small effusion. No fracture or dislocation. There are ossifications present posteriorly, which could reflect osteophytes or loose bodies. Interval worsening from previous. Right knee: Mild to moderate medial and patellofemoral arthritis. Mild lateral compartment arthritis. No fracture or dislocation. Small suprapatellar joint fluid. Quadriceps tendon insertional enthesopathy. 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 XR/XR knee LT 4V IMPRESSION: Left knee: Tricompartment osteoarthritis. Severe medial compartment arthritis. Small effusion. Osteophytes or loose bodies posteriorly. Interval worsening from previous. Right knee: Tricompartment osteoarthritis. Mild to moderate medial and patellofemoral arthritis. Small effusion. Interval worsening from previous.
--- NOTE | ~2021-07-28 | XR_ITS ---
EXAMINATION: X-RAY BILATERAL KNEES CLINICAL INFORMATION: Arthritis COMPARISON: Left knee 10/05/2019. Right knee 08/08/2008 TECHNIQUE: Bilateral knees each 4 views FINDINGS: Left knee: Severe medial compartment arthritis with marked joint space loss, osteophytes. Degenerative varus. Moderate lateral and severe patellofemoral arthritis. Small effusion. No fracture or dislocation. There are ossifications present posteriorly, which could reflect osteophytes or loose bodies. Interval worsening from previous. Right knee: Mild to moderate medial and patellofemoral arthritis. Mild lateral compartment arthritis. No fracture or dislocation. Small suprapatellar joint fluid. Quadriceps tendon insertional enthesopathy. 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 XR/XR knee RT 4V IMPRESSION: Left knee: Tricompartment osteoarthritis. Severe medial compartment arthritis. Small effusion. Osteophytes or loose bodies posteriorly. Interval worsening from previous. Right knee: Tricompartment osteoarthritis. Mild to moderate medial and patellofemoral arthritis. Small effusion. Interval worsening from previous.
[2021-07-28 12:29] LABS: Erythrocyte Sedimentation Rate 5 MM/HR (0-15)
[2021-07-28 12:44] LABS: Alanine Aminotransferase 14 U/L (0-40); Albumin Level 4.1 g/dL (3.5-5.0); Alkaline Phosphatase 48 U/L (39-117); Anion Gap 13 (12-20); Aspartate Amino Transferase 21 U/L (5-37); Bilirubin Direct 0.2 mg/dL (0.0-0.5); Bilirubin Total 0.6 mg/dL (0.0-1.0); Blood Urea Nitrogen 10 mg/dL (9-16); Calcium 9.1 mg/dL (8.4-10.2); Carbon Dioxide 23 mmol/L (22-29); Chloride 107 mmol/L (96-108); Estimated Glomerular Filt Rate > 60; Glucose Random 102 mg/dL (60-115); Potassium 4.3 mmol/L (3.3-5.1); Sodium 139 mmol/L (135-145); Total Protein 7.1 g/dL (6.5-8.0)
[2021-07-28 12:54] LABS: Rheumatoid Factor < 15.0 IU/mL (<15.0)
[2021-07-31 01:07] LABS: Lyme Abs Screen <0.90 index
[2021-07-31 23:11] LABS: Anti Nuclear Antibody Screen POSITIVE (NEGATIVE)
== END 2021-07-28 09:53 | disposition home or self-care (01) ==
LOC: HO.XRAY 09:52
PROVIDERS: PCP Nurse Practitioner Family; Visit Provider Psychiatry & Neurology Neurology
DX: M19.90 Unspecified osteoarthritis, unspecified site (principal)
CPT/HCPCS: 36415; 73564; 80048; 80076; 82550; 85652; 86038; 86039; 86431; 86617; 86618

== ENCOUNTER 2021-09-30 19:39 | Emergency (ER) | payer MEDICARE, SELFPAY ==
--- NOTE | ~2021-09-30 | CT_ITS ---
EXAMINATION: CT HEAD WITHOUT CONTRAST CT CERVICAL SPINE WITHOUT CONTRAST CLINICAL INFORMATION: Fall. Neck pain. Right-sided weakness. COMPARISON: CT head from 05/12/2020. TECHNIQUE: Contiguous axial imaging was performed from the skull base to vertex without intravenous administration of contrast. Contiguous axial imaging was performed from the upper chest through the skull base without intravenous administration of contrast. Coronal and sagittal reformats were obtained at the acquisition workstation. This CT examination was performed using dose optimization techniques as appropriate, variously including the following: *Automated exposure control. *Adjustment of mA and/or kV according to patient size (this includes techniques or standardized protocols for targeted exams where dose is matched to indication/reason for exam; i.e. extremities or head). *Use of iterative reconstruction technique. DLP: 1059 mGy-cm FINDINGS: Head: There is no evidence of acute intracranial hemorrhage or edematous territorial infarction. Scattered hypoattenuation in the periventricular and deep white matter are consistent with moderate microangiopathy. Franco-white matter differentiation is preserved. Proportional prominence of the ventricles and sulcal spaces. No evidence for obstructive hydrocephalus. No abnormal mass effect or midline shift. No extra-axial fluid collections. Small subgaleal hematoma along the posterior vertex, measuring up to 0.4 cm in depth. No associated osseous abnormalities. Subperiosteal lipoma along the occipital bone, measuring 2.7 x 0.8 cm. Mild mucosal thickening of the paranasal sinuses. The mastoid air cells and middle ear cavities are clear. Calcific atherosclerotic disease of the intracranial internal carotid arteries. No hyperdense vessel sign. Cervical Spine: The atlantooccipital and atlantoaxial articulations remain well aligned. Straightening of the normal cervical lordosis. Mild degenerative anterolisthesis of C7 on T1. There is fusion of the left-sided C3-C4 facets. Otherwise, there is anatomic alignment of the vertebral bodies and posterior elements. No evidence of acute fracture or subluxation. The vertebral body heights are maintained. Advanced degenerative disc disease at C4-C5 and C6-C7. Moderate degenerative disc disease at all additional cervical levels. Associated disc-osteophyte complex formation, most notably at C4-C5 and C6-C7. Facet and uncovertebral joint arthropathy leads to osseous encroachment on the neural foramina from C2-T1. There is no prevertebral soft tissue swelling. The thyroid gland and remaining cervical soft tissues are normal in appearance. The lung apices demonstrate no abnormalities. CT/CT cervical spine wo con IMPRESSION: 1. No evidence of acute intracranial hemorrhage or edematous territorial infarction moderate underlying microangiopathy and generalized cerebral volume loss.. 2. No evidence of acute fracture or traumatic subluxation of the cervical spine. Moderate to advanced multilevel degenerative spondyloarthropathy of the cervical spine. 3. Small posterior scalp hematoma. No associated osseous abnormalities.
--- NOTE | ~2021-09-30 | XR_ITS ---
EXAMINATION: XR CHEST CLINICAL INFORMATION: History of fall. Evaluate for rib fracture, pneumothorax. COMPARISON: CXR from 05/12/2020 TECHNIQUE: Frontal view of the chest was obtained. FINDINGS: Lungs are hypoinflated. There is no focal abnormality. No consolidation, pneumothorax or pleural effusion. Cardiac silhouette is normal in size. The hilar contours are normal. No rib fractures are detected on this standard single AP view of the chest. XR/XR chest 1V IMPRESSION: No acute pulmonary disease.
[2021-09-30 19:51] VITALS: BP 128/72; BP 142/52; PULSE 104; PULSE 114; RESP 16; TEMP 37.2; O2SAT 95; O2SAT 97; BMI 30.4
--- NOTE | 2021-09-30 21:18 | ED.FALL ---
HPI - Fall General Chief Complaint: Fall Stated Complaint: right shoulder pain due to fall Time Seen by Provider: 09/30/21 20:46 Source: patient and other ([facility] notes) Mode of arrival: EMS Limitations: no limitations History of Present Illness HPI Narrative: 70-year-old male who was sent to emergency department for evaluation unwitnessed fall and right-sided weakness. Patient states that he was trying to get out of bed and he fell. He is uncertain if he struck his head but he states that he is having trouble moving his right side after the fall. The following information was documented on the transfer note: resident got up from bed, fell to his left side but was found lying on his right side up against the base of the wall and the bed frame. Not sure if he hit his head. After assist up noted abrasion right side of face, had been incontinent of urine, is not unusual. Assisted up to chair noted right-sided weakness leading right. 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 complaint: fall Onset (ago): hour(s) (5.5 hours prior to evaluation) Fall from: other (Fall out of bed) Fall witnessed: no Place fall occurred: other (Assisted living facility) Loss of consciousness: unsure Prolonged down time: unclear Symptoms prior to fall: none Context: other (Rolled out of bed) Location of injury: face (Small abrasion to right cheek) Severity: mild Severity scale (1-10): 2 Quality: dull Associated symptoms (after fall): denies Related Data Home Medications Medication Instructions Recorded Confirmed memantine 5 mg tablet 5 mg PO DAILY 12/04/20 12/04/20 mirtazapine 30 mg tablet 30 mg PO BEDTIME 12/04/20 12/04/20 Previous Rx's Medication Instructions Recorded atenolol 25 mg tablet 25 mg PO DAILY 30 Days #30 tab 06/04/20 divalproex 500 mg tablet,extended 500 mg PO BID 30 Days #60 tab 06/04/20 release 24 hr Allergies Allergy/AdvReac Type Severity Reaction Status Date / Time No Known Allergies Allergy Verified 04/02/20 20:21 [No Known Allergies*] Review of Systems Review of Systems: Yes all other systems are reviewed and are negative [facility] Past Medical History [facility] Narrative: Social history: The patient denies tobacco, alcohol and drug use. 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 Surgical History History of amputation of finger of right hand Family History Family History Mother Heart disease Father Hx of colostomy Social History Social History Household Members: Family Housing: House Are you a primary urgent care technician to a significant other at home: No Do you presently have visiting nurse or other home services: No Unable to assess alcohol history related to: Unable to respond and Unknown Alcohol intake: unknown Patient Tobacco Use Status: Former Tobacco user Second Hand Smoke Exposure: No Advance Directives: No service: No Sexual orientation: Straight/Heterosexual Physical Exam Vital Signs: Vital Signs: Last Vital Signs Temp 99.0 F 09/30/21 23:02 Pulse 98 09/30/21 23:02 Resp 18 09/30/21 23:02 BP 119/71 09/30/21 23:02 Pulse Ox 97 09/30/21 23:02 BMI result Body Mass Index 30.4 Const: Other: Awake, alert, male patient, very pleasant and cooperative, answers all questions appropriately, oriented to person, he knows that he is in a hospital. He was able to tell me that he fell out of bed and was having pain in his right side which has now resolved. HEENT: Head: Yes normal to inspection, Yes normocephalic and Yes atraumatic Ears: external ears normal General nose exam: Normal external nose present Face and sinus: Yes normal facial exam Mouth: Normal oral and palatal mucosa present Throat: Yes posterior oropharynx normal Eyes: General: appearance normal, both eyes and all related structures Pupils: Equal, round and reactive pupils present Neck: Neck: Yes normal visual inspection, Yes no lymphadenopathy, Yes trachea midline and Yes supple Chest: Chest palpation & inspection: normal inspection of the chest and normal palpation of entire chest wall Resp: Effort & Inspection: normal respiratory effort and able to speak in complete sentences Auscultation: clear to auscultation bilaterally Cardio: Rate: regular rate Rhythm: regular rhythm Heart sounds: S1 normal heart sound present, S2 normal heart sound present and no murmurs GI: Inspection: Yes normal to inspection Palpation (GI): Soft to palpation, nontender and no guarding Auscultation: normal bowel sounds : General: Yes no CVA tenderness Back/Spine/Pelvis: Back: no CVA tenderness Skin: General skin exam: no rashes or lesions noted Neuro: Cranial nerves: Yes CN's II-XII intact bilaterally and Yes Equal, round and reactive pupils present Cognition (Neuro): normal cognition Motor exam (neuro): 5/5 motor strength present throughout Extrem: General: Yes normal to inspection Psych: Appearance: grossly normal Speech and movement: Normal speech and movement present Affect: normal affect Attitude: cooperative Thought process: Normal thought process present Thought content: Normal thought content present Course Course Course Narrative: 70-year-old male who was sent to emergency department for evaluation of a unwitnessed fall out of bed, he was found lying on his left side pinned between the bed frame and the wall. When he was put in a chair he initially had right-sided weakness which now apparently at the time of my exam. Patient was more confused than his baseline which I believe is also resolved. The patient had 1 episode of vomiting patient's vital signs revealed an elevated heart rate of 104 otherwise were unremarkable. Examination was unremarkable. I did order a CT scan of the head and neck, laboratory evaluation, urinalysis and EKG. 0022: Laboratory evaluation: WBC elevated 11,300. Platelet count low 131,000. Glucose elevated 133. Urinalysis positive for glucose, microscopic negative infection. CK elevated 678 consistent with his fall. COVID-19 negative. Radiology evaluation: CT scan of the brain interpreted by the radiologist as no evidence of acute intracranial hemorrhage or edematous territorial infarct, moderate underlying microangiopathy and generalized cerebral volume loss. CT scan of the cervical spine interim by the radiologist as no evidence of acute fracture or traumatic subluxation of the cervical spine. Moderate to advanced multilevel degenerative spondyloarthropathy of the cervical spine. Small posterior scalp hematoma, no associated osseous abnormality. The patient's workup was unremarkable, I do not think the patient has had a stroke or significant injury from his fall. He will be discharged back to his assisted living facility. MDM - Fall Lab Data Result diagrams: 09/30/21 22:36 09/30/21 22:36 Labs: Lab Results 09/30/21 09/30/21 09/30/21 Range/Units 22:36 22:36 22:36 WBC 11.3 H (4.8-10.8) X10*3/uL RBC 4.51 L (4.60-5.80) X10*6/uL Hgb 14.1 (14.0-18.0) g/dl Hct 40.9 L (42.0-52.0) % MCV 90.7 (80.0-98.0) fL MCH 31.3 (27.0-33.0) pg MCHC 34.5 (31.0-36.0) g/dl RDW 12.1 (11.0-16.0) % Plt Count 131 L (160-400) X10*3/uL MPV 9.3 L (9.4-12.4) fL Immature Gran % (Auto) 0.4 (0.0-0.4) % Neut % (Auto) 67.5 (45-73) % Lymph % (Auto) 20.6 (20-40) % Galax % (Auto) 11.1 H (2-11) % Eos % (Auto) 0.2 (0-4) % Baso % (Auto) 0.2 (0-2) % Lymph # (Auto) 2.3 (1.2-4.9) X10*3/uL Galax # (Auto) 1.3 H (0.1-1.2) X10*3/uL Eos # (Auto) 0.0 (0.0-0.4) X10*3/uL Baso # (Auto) 0.0 (0.0-0.2) X10*3/uL Abs Immat Gran (auto) 0.04 H (0.00-0.03) X10*3/uL Absolute Neuts (auto) 7.7 (2.0-8.3) x10*3/uL Absolute Nucleated RBC 0.000 (0.0-0.012) X10*3/uL Nucleated RBC % (auto) 0.0 (0.0-0.2) /100WBC Sodium 138 (135-145) mmol/L Potassium 4.2 (3.3-5.1) mmol/L Chloride 106 (96-108) mmol/L Carbon Dioxide 23 (22-29) mmol/L Anion Gap 13 (12-20) BUN 8 L (9-16) mg/dL Creatinine 0.74 (0.5-1.4) mg/dL Estim Creat Clear Calc 108.1 Estimated GFR > 60 Random Glucose 133 H (60-115) mg/dL Calcium 9.1 (8.4-10.2) mg/dL Total Bilirubin 0.7 (0.0-1.0) mg/dL AST 23 (5-37) U/L ALT 11 (0-40) U/L Alkaline Phosphatase 48 (39-117) U/L Total Creatine Kinase 678 H D (38-174) U/L Total Protein 6.9 (6.5-8.0) g/dL Albumin 4.0 (3.5-5.0) g/dL Lipase 13 (8-78) U/L Urine Color Urine Appearance Urine pH (5.0-8.0) Ur Specific Harcourt (1.005-1.025) Urine Protein (NEG-TRACE) MG/DL Urine Glucose (UA) (NEG) MG/DL Urine Ketones (NEG) MG/DL Urine Blood (NEG) Urine Nitrite (NEG) Ur Leukocyte Esterase (NEG) Urine RBC (0) /HPF Urine WBC (0-4) /HPF Ur Squamous Epith Cells /LPF Urine Bacteria /LPF Urine Mucus /LPF COVID-19 ([facility]) Negative (Negative) COVID-19 Clin Com See Note 09/30/21 Range/Units 23:06 WBC (4.8-10.8) X10*3/uL RBC (4.60-5.80) X10*6/uL Hgb (14.0-18.0) g/dl Hct (42.0-52.0) % MCV (80.0-98.0) fL MCH (27.0-33.0) pg MCHC (31.0-36.0) g/dl RDW (11.0-16.0) % Plt Count (160-400) X10*3/uL MPV (9.4-12.4) fL Immature Gran % (Auto) (0.0-0.4) % Neut % (Auto) (45-73) % Lymph % (Auto) (20-40) % Galax % (Auto) (2-11) % Eos % (Auto) (0-4) % Baso % (Auto) (0-2) % Lymph # (Auto) (1.2-4.9) X10*3/uL Galax # (Auto) (0.1-1.2) X10*3/uL Eos # (Auto) (0.0-0.4) X10*3/uL Baso # (Auto) (0.0-0.2) X10*3/uL Abs Immat Gran (auto) (0.00-0.03) X10*3/uL Absolute Neuts (auto) (2.0-8.3) x10*3/uL Absolute Nucleated RBC (0.0-0.012) X10*3/uL Nucleated RBC % (auto) (0.0-0.2) /100WBC Sodium (135-145) mmol/L Potassium (3.3-5.1) mmol/L Chloride (96-108) mmol/L Carbon Dioxide (22-29) mmol/L Anion Gap (12-20) BUN (9-16) mg/dL Creatinine (0.5-1.4) mg/dL Estim Creat Clear Calc Estimated GFR Random Glucose (60-115) mg/dL Calcium (8.4-10.2) mg/dL Total Bilirubin (0.0-1.0) mg/dL AST (5-37) U/L ALT (0-40) U/L Alkaline Phosphatase (39-117) U/L Total Creatine Kinase (38-174) U/L Total Protein (6.5-8.0) g/dL Albumin (3.5-5.0) g/dL Lipase (8-78) U/L Urine Color STRAW Urine Appearance HAZY Urine pH 7.0 (5.0-8.0) Ur Specific Harcourt <= 1.005 (1.005-1.025) Urine Protein NEG (NEG-TRACE) MG/DL Urine Glucose (UA) 100 H (NEG) MG/DL Urine Ketones NEG (NEG) MG/DL Urine Blood TRACE (NEG) Urine Nitrite NEG (NEG) Ur Leukocyte Esterase NEG (NEG) Urine RBC 0-2 (0) /HPF Urine WBC 0-2 (0-4) /HPF Ur Squamous Epith Cells NONE /LPF Urine Bacteria NONE /LPF Urine Mucus TRACE /LPF COVID-19 ([facility]) (Negative) COVID-19 Clin Com Discharge Plan Discharge Clinical Impression: Closed head injury Qualifiers: Encounter type: initial encounter Qualified Code(s): S09.90XA - Unspecified injury of head, initial encounter Scalp hematoma Qualifiers: Encounter type: initial encounter Qualified Code(s): S00.03XA - Contusion of scalp, initial encounter Fall Qualifiers: Encounter type: initial encounter Qualified Code(s): W19.XXXA - Unspecified fall, initial encounter Patient Disposition: Home, Self-Care Instructions: Head Injury (ED) Additional Instructions: The CT scan of your head revealed a small hematoma on the back of your head (occipita scalp) The CT scan of your cervical spine/neck did not reveal any broken bones, you do have arthritis consistent with your age Your blood work was unremarkable. Your urinalysis and microscopic evaluation did not reveal any significant infection. Your COVID-19 test was negative. At this time, I do not think that you had a stroke or any significant injury from your fall and it is okay to send you back to your assisted living facility. Prescriptions: No Action memantine 5 mg tablet 5 mg PO DAILY 0RF mirtazapine 30 mg tablet 30 mg PO BEDTIME 0RF atenolol 25 mg Tablet 25 mg PO DAILY 30 Days Qty: 30 0RF Protocol: Hold for SBP/HR < HOLD for SBP < : 90 HOLD for HR < : 60 divalproex 500 mg Tablet Extended Release 24 Hr 500 mg PO BID 30 Days Qty: 60 0RF
--- NOTE | 2021-09-30 21:29 | ECG_ITS ---
Test Reason : Fall Blood Pressure : / mmHG Vent. Rate : 096 BPM Atrial Rate : 096 BPM P-R Int : 160 ms QRS Dur : 086 ms QT Int : 356 ms P-R-T Axes : 016 -50 009 degrees QTc Int : 449 ms Normal sinus rhythm Possible Left atrial enlargement Left anterior fascicular block Abnormal ECG When compared with ECG of 04-DEC-2020 10:51, No significant change was found Referred By: Jordan Mendes Electronically Signed By:Osman Pham
[2021-09-30 23:02] VITALS: BP 119/71; PULSE 98; RESP 18; TEMP 37.2; O2SAT 97
[2021-09-30 23:04] LABS: COVID-19 Test Negative (Negative)
[2021-09-30 23:28] LABS: MANUAL DIFF FLAG NO
[2021-09-30 23:30] LABS: Appearance Urine HAZY; Color Urine STRAW; Glucose Urine UA 100 MG/DL (NEG); Leukocyte Esterase Urine NEG (NEG); Nitrite Urine NEG (NEG); Specific Gravity - Urine <= 1.005 (1.005-1.025); UACC Culture Trigger NO; Urine Blood TRACE (NEG); Urine Ketones NEG (NEG); Urine Protein NEG (NEG-TRACE)
[2021-09-30 23:30] LABS: Basophils Percent Auto 0.2 % (0-2); Eosinophils Percent Auto 0.2 % (0-4); Hematocrit 40.9 % (42.0-52.0); Hemoglobin 14.1 g/dl (14.0-18.0); Imm Gran Abs Auto 0.04 X10*3/uL (0.00-0.03); Imm Gran Pct Auto 0.4 % (0.0-0.4); Lymphocytes Absolute Auto 2.3 X10*3/uL (1.2-4.9); Lymphocytes Percent Auto 20.6 % (20-40); Mean Corpuscular HGB Conc 34.5 g/dl (31.0-36.0); Mean Corpuscular Hemoglobin 31.3 pg (27.0-33.0); Mean Corpuscular Volume 90.7 fL (80.0-98.0); Mean Platelet Volume 9.3 fL (9.4-12.4); Monocytes Absolute Auto 1.3 X10*3/uL (0.1-1.2); Monocytes Percent Auto 11.1 % (2-11); Neutrophils Absolute Auto 7.7 x10*3/uL (2.0-8.3); Neutrophils Percent Auto 67.5 % (45-73); Platelet Count 131 X10*3/uL (160-400); Red Blood Count 4.51 X10*6/uL (4.60-5.80); Red Cell Distribution Width 12.1 % (11.0-16.0); White Blood Count 11.3 X10*3/uL (4.8-10.8)
[2021-09-30 23:38] LABS: Mucus Urine TRACE /LPF; RBC Urine 0-2 /HPF (0); WBC Urine 0-2 /HPF (0-4)
[2021-09-30 23:49] LABS: Alanine Aminotransferase 11 U/L (0-40); Alkaline Phosphatase 48 U/L (39-117); Anion Gap 13 (12-20); Aspartate Amino Transferase 23 U/L (5-37); Bilirubin Total 0.7 mg/dL (0.0-1.0); Blood Urea Nitrogen 8 mg/dL (9-16); Calcium 9.1 mg/dL (8.4-10.2); Carbon Dioxide 23 mmol/L (22-29); Chloride 106 mmol/L (96-108); Creatinine Clr Calc Pharmacy 108.1; Estimated Glomerular Filt Rate > 60; Glucose Random 133 mg/dL (60-115); Lipase 13 U/L (8-78); Potassium 4.2 mmol/L (3.3-5.1); Sodium 138 mmol/L (135-145); Total Protein 6.9 g/dL (6.5-8.0)
--- NOTE | 2021-10-01 01:03 | PC.NURSE ---
Report given to Joellen PEÑA at [facility], pt has no barriers to return back to his facility at this time.
== END 2021-10-01 01:28 | disposition home or self-care (01) ==
PROVIDERS: Emergency Provider Emergency Medicine Emergency Medical Services; PCP Internal Medicine
DX: S09.90XA Unspecified injury of head, initial encounter (principal); S00.03XA Contusion of scalp, initial encounter; S00.81XA Abrasion of other part of head, initial encounter; W06.XXXA Fall from bed, initial encounter; Z20.822 Contact with and (suspected) exposure to COVID-19; Y93.89 Activity, other specified; Y92.092 Bedroom in other non-institutional residence as the place of occurrence of the external cause; Y99.9 Unspecified external cause status
CPT/HCPCS: 70450; 71045; 72125; 80053; 81001; 82550; 83690; 85025; 87635; 93005; 99284; 99285

== ENCOUNTER 2021-11-28 03:48 | Emergency (ER) | payer MEDICARE, SELFPAY ==
--- NOTE | ~2021-11-28 | CT_ITS ---
EXAMINATION: CT HEAD WITHOUT CONTRAST CT CERVICAL SPINE WITHOUT CONTRAST CLINICAL INFORMATION: Fall COMPARISON: 09/30/2021 TECHNIQUE: Multidetector CT imaging of the head and cervical spine was performed without the use of intravenous contrast. Multiplanar reformats are reviewed. This CT examination was performed using dose optimization techniques as appropriate, variously including the following: *Automated exposure control *Adjustment of mA and/or kV according to patient size (this includes techniques or standardized protocols for targeted exams where dose is matched to indication/reason for exam; i.e. extremities or head) *Use of iterative reconstruction technique DLP: 1043 mGy-cm. FINDINGS: There is no evidence of acute intracranial hemorrhage or territorial infarction. No abnormal mass effect or midline shift is seen. Franco to white matter differentiation is well preserved. No extra-axial fluid collections are identified. Mild generalized brain parenchymal volume loss. No disproportionate ventriculomegaly.. Mild patchy subcortical and periventricular white matter with changes redemonstrated statistically related to chronic microangiopathic gliosis. Cavernous carotid calcifications. There is a thin subgaleal hematoma along the posterior vertex overlying in thickening/swelling.. The mastoid air cells and visualized portions of the paranasal sinuses are well-aerated. Atlantooccipital alignment is maintained. The vertebral bodies and posterior elements align normally. No acute fracture or subluxation. Vertebral body heights are maintained. Endplate osteophytes and loss of disc space height present throughout cervical spine, most notably from C4 through C7. Mild anterolisthesis of C7 over T1, related to facet arthropathy present throughout the cervical spine. The paraspinal soft tissues are unremarkable. The imaged lung apices are clear CT/CT cervical spine wo con IMPRESSION: No acute intracranial pathology. No cervical spine fracture or malalignment.
[2021-11-28 04:04] VITALS: BP 144/90; PULSE 78; PULSE 84; RESP 14; TEMP 36.8; O2SAT 97; BMI 28.1
--- NOTE | 2021-11-28 04:06 | ED_ITS ---
HPI - Fall General Chief Complaint: Fall Stated Complaint: fall w/head strike Time Seen by Provider: 11/28/21 04:06 Source: patient Mode of arrival: EMS Limitations: no limitations History of Present Illness HPI Narrative: Patient walks with a walker came with mechanical fall foot stuck landed on the ground hitting his nose to the ground came with the epistaxis which stopped prior to arrival no other injuries no loss of consciousness no dizziness no chest pain or palpitation Related Data Home Medications Medication Instructions Recorded Confirmed memantine 5 mg tablet 5 mg PO DAILY 12/04/20 12/04/20 mirtazapine 30 mg tablet 30 mg PO BEDTIME 12/04/20 12/04/20 Previous Rx's Medication Instructions Recorded atenolol 25 mg tablet 25 mg PO DAILY 30 days #30 tabs 06/04/20 divalproex 500 mg tablet,extended 500 mg PO BID 30 days #60 tabs 06/04/20 release 24 hr Allergies Allergy/AdvReac Type Severity Reaction Status Date / Time No Known Allergies Allergy Verified 04/02/20 20:21 [No Known Allergies*] Review of Systems Review of Systems: Yes all other systems are reviewed and are negative [facility] Past Medical History 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 Surgical History History of amputation of finger of right hand Family History Family History Mother Heart disease Father Hx of colostomy Social History Social History Household Members: Family Housing: House Are you a primary manager long term care to a significant other at home: No Do you presently have visiting nurse or other home services: No Unable to assess alcohol history related to: Unable to respond and Unknown Alcohol intake: unknown Patient Tobacco Use Status: Former Tobacco user Second Hand Smoke Exposure: No Advance Directives: No Advance Directives Information Provided: No service: No Sexual orientation: Straight/Heterosexual Physical Exam Vital Signs: Vital Signs: Last Vital Signs Temp 98.2 F 11/28/21 04:04 Pulse 78 11/28/21 04:04 Resp 14 11/28/21 04:04 BP 144/90 H 11/28/21 04:04 Pulse Ox 97 11/28/21 04:04 O2 Del Method 11/28/21 04:04 BMI result Body Mass Index 28.1 Appearance: Alert. Oriented X3. No acute distress. Eyes: PERRLA, No Nystagmus HEENT: Pharynx normal. Oral Mucosa moist superficial abrasion nasal bridge dried blood bilateral nostril no active bleeding Neck: Normal inspection. Neck supple. CVS: Normal heart rate and rhythm. Pulses normal. Respiratory: No respiratory distress. Equal air entry bilateral, no wheezing/rales/rhonchi Abdomen: Soft and nontender. Bowel sounds are present, no mass palpable, no CVA tenderness Skin: Skin warm and dry. Normal skin color. Normal skin turgor. Extremities: No lower extremity edema. No calf tenderness Neuro: Oriented X 3. No motor deficit. No sensory deficit.No cerebellar signs , cranial nerves II-XII intact MDM - Fall MDM Narrative Medical decision making narrative: Patient status post mechanical fall CT C-spine and head negative discharge patient back to senior living Discharge Plan Discharge Clinical Impression: Head injury Patient Disposition: Xfer SNF Instructions: Head Injury (ED) Additional Instructions: CT scan of the C-spine and head was negative for any acute internal injury Care and cautions as advised Prescriptions: No Action memantine 5 mg tablet 5 mg PO DAILY mirtazapine 30 mg tablet 30 mg PO BEDTIME atenolol 25 mg Tablet 25 mg PO DAILY 30 Days Qty: 30 0RF Protocol: Hold for SBP/HR < HOLD for SBP < : 90 HOLD for HR < : 60 divalproex 500 mg Tablet Extended Release 24 Hr 500 mg PO BID 30 Days Qty: 60 0RF
[2021-11-28 06:19] VITALS: BP 142/87; PULSE 76; RESP 16; O2SAT 97
== END 2021-11-28 08:32 | disposition skilled nursing facility (03) ==
PROVIDERS: Emergency Provider Internal Medicine; PCP Internal Medicine
DX: S09.90XA Unspecified injury of head, initial encounter (principal); W01.0XXA Fall on same level from slipping, tripping and stumbling without subsequent striking against object, initial encounter; Y93.01 Activity, walking, marching and hiking; Y92.9 Unspecified place or not applicable; Y99.9 Unspecified external cause status
CPT/HCPCS: 70450; 72125; 99283; 99284

== ENCOUNTER 2022-03-09 18:01 | Emergency (ER) | payer MEDICARE, SELFPAY ==
--- NOTE | ~2022-03-09 | XR_ITS ---
EXAMINATION: XR KNEE, LEFT CLINICAL INFORMATION: Left knee pain. Status post fall COMPARISON: None TECHNIQUE: Four views of the left knee. FINDINGS: There is mild loss of tricompartment joint space with periarticular spurring significant in the patellofemoral compartment. There is small to moderate suprapatellar joint effusion. No acute fracture, loose bodies or bony erosive changes seen. However there is irregularity along the medial femoral condyle. XR/XR knee LT 4V IMPRESSION: Moderate to severe degenerative changes left knee joint. There is small to moderate size suprapatellar joint effusion.
--- NOTE | 2022-03-09 18:25 | ED_ITS ---
HPI - Fall General Chief Complaint: Fall Stated Complaint: FALL @ LUNCHTIME, LT KNEE SWELLING Time Seen by Provider: 03/09/22 18:10 Source: patient Mode of arrival: ambulatory Limitations: no limitations History of Present Illness HPI Narrative: 71-year-old male brought to the ED for left knee pain and swelling after falling. Patient states he was standing in his [facility] home and he turned around, turned his left knee and tripped over a fan and his left knee time directly on the fan. Patient denies hitting head or loss of consciousness. Patient denies any dizziness before falling. Patient states no chest pain or shortness of breath. Denies any headache or dizziness before falling. Denies any passing out. Patient denies any abdominal pain before falling. Patient denies any chest pain before falling. Patient states he tripped. Patient denies any pain when knee is touch, but pain on range of motion of knee. Patient states hard to walk. Related Data Home Medications Medication Instructions Recorded Confirmed memantine 5 mg tablet 5 mg PO DAILY 12/04/20 12/04/20 mirtazapine 30 mg tablet 30 mg PO BEDTIME 12/04/20 12/04/20 Previous Rx's Medication Instructions Recorded atenolol 25 mg tablet 25 mg PO DAILY 30 days #30 tabs 06/04/20 divalproex 500 mg tablet,extended 500 mg PO BID 30 days #60 tabs 06/04/20 release 24 hr naproxen 500 mg tablet 500 mg PO BID PRN pain 10 days #20 03/09/22 tabs prednisone 20 mg tablet 40 mg PO DAILY 5 days #10 tabs 03/09/22 Allergies Allergy/AdvReac Type Severity Reaction Status Date / Time No Known Allergies Allergy Verified 04/02/20 20:21 [No Known Allergies*] Review of Systems Review of Systems: Left knee pain Yes all other systems are reviewed and are negative PMFSH Past Medical History 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 Surgical History History of amputation of finger of right hand Family History Family History Mother Heart disease Father Hx of colostomy Social History Social History Household Members: Family Housing: House Are you a primary day care supervisor to a significant other at home: No Do you presently have visiting nurse or other home services: No Unable to assess alcohol history related to: Unable to respond and Unknown Alcohol intake: unknown Patient Tobacco Use Status: Former Tobacco user Second Hand Smoke Exposure: No Advance Directives: Yes Advance Directives on File: Yes Advance Directives Date on File: 08/19/20 service: No Sexual orientation: Straight/Heterosexual Physical Exam Vital Signs: Vital Signs: Last Vital Signs Temp 97.6 F 03/09/22 19:17 Pulse 75 03/09/22 19:17 Resp 16 03/09/22 19:17 BP 140/86 H 03/09/22 19:17 Pulse Ox 96 03/09/22 19:17 O2 Del Method 03/09/22 19:17 BMI result Body Mass Index 0.0 Const: General: cooperative, healthy appearing, comfortable, no acute distress, well developed, alert, awake and Physically active; No acute distress Orientation/consciousness: oriented to person, oriented to place, oriented to time and patient oriented x3 HEENT: Head: Yes normal to inspection, Yes No palpable skull fracture present, Yes normocephalic and No atraumatic Eyes: General: appearance normal, both eyes and all related structures Neck: Neck: Yes normal visual inspection, Yes full ROM, Yes no lymphadenopathy, Yes no meningeal signs, Yes trachea midline, Yes supple, No anterior neck swelling and No tender Chest: Chest palpation & inspection: normal inspection of the chest and normal palpation of entire chest wall Resp: Effort & Inspection: normal respiratory effort and able to speak in complete sentences Auscultation: clear to auscultation bilaterally Cardio: Jugular venous distension: no JVD Heart sounds: S1 normal heart sound present and S2 normal heart sound present GI: Inspection: Yes normal to inspection and No abdominal wall ecchymosis Palpation (GI): Soft to palpation, not firm, nontender, no guarding and not rigid : General: No CVA tenderness and Yes no CVA tenderness Back/Spine/Pelvis: Back: no CVA tenderness, No CVA tenderness and No back tenderness Skin: General skin exam: no rashes or lesions noted and elasticity normal Neuro: Other: Trouble walking due to left knee pain General: oriented to person, oriented to place, oriented to time, patient oriented x3, no meningeal signs and decrease sensation to monofilament Cranial nerves: Yes CN's II-XII intact bilaterally Extrem: General: Yes normal to inspection Knee images: 1. Positive for swelling but negative for tenderness. Decreased extension and flexion due to pain. Negative for erythema or warmth. Popliteal pulse intact. Rest of extremity normal Psych: Appearance: grossly normal, well kempt and not disheveled Course Course Course Narrative: Sent for left knee x-ray Reevaluation(s) Reevaluation #1: X-ray for fracture but does shows joint effusion. Patient stating twisting knee while falling hitting me onto the fan most likely patient probably tore a ligament or meniscus. Patient given steroid and Toradol injection. Patient placed in Carl wrap and crutches and to be discharged for follow-up with MRI Time: 20:50 Discharge Plan Discharge Clinical Impression: Left knee sprain, Joint effusion of knee Patient Disposition: Home, Self-Care Instructions: Knee Sprain (ED), Crutch Instructions (ED), How to Use an Elastic Bandage (ED), Swollen Knee Joint (ED) Additional Instructions: In knee x-ray came back negative for fracture. You have fluid in the knee. You any follow-up with her primary care provider for MRI to evaluate for possible meniscus versus ligament tear which can cause fluid in the knee and swelling after trauma. Return to the ED immediately for any chest pain, shortness of b reath, headache, dizziness, redness, warmth, stiffness, fever, chills, abdominal pain or any other concerning symptoms. Prescriptions: New naproxen 500 mg tablet 500 mg PO BID PRN (Reason: pain) 10 Days Qty: 20 0RF prednisone 20 mg tablet 40 mg PO DAILY 5 Days Qty: 10 0RF No [facility] memantine 5 mg tablet 5 mg PO DAILY mirtazapine 30 mg tablet 30 mg PO BEDTIME atenolol 25 mg Tablet 25 mg PO DAILY 30 Days Qty: 30 0RF Protocol: Hold for SBP/HR < HOLD for SBP < : 90 HOLD for HR < : 60 divalproex 500 mg Tablet Extended Release 24 Hr 500 mg PO BID 30 Days Qty: 60 0RF Referrals: [facility] [place] [facility] [Provider Group] (LEft knee swelling after turning knee and fall. WIll need MRI.) Print Language: Citizen [place]
[2022-03-09 19:15] VITALS: BP 142/86; PULSE 74; O2SAT 96
[2022-03-09 19:17] VITALS: BP 140/86; PULSE 75; RESP 16; TEMP 36.4; O2SAT 96
[2022-03-09] MEDS: predniSONE 20 MG TABLET 60 MG PO (20:31)
[2022-03-09] MEDS: Ketorolac Tromethamine 30 MG/ML VIAL IM (20:31)
--- NOTE | 2022-03-09 22:13 | PC.NURSE ---
report given to nurse Urena at [facility]. No transportation provided by [facility]. pt given toradol 30mg IM and Prednisone 60mg po
--- NOTE | 2022-03-09 22:15 | PC.NURSE ---
Attempted to contact pt sisterRabia at [phone] number
--- NOTE | 2022-03-09 23:13 | MHC.CM.ED ---
Addendum entered by Dian Zheng 03/09/22 23:34: Pt is unable to get into car independently. Pt is not comfortable with car transport. sales secretary aware. Charge nurse aware. Pt will stay overnight. Will work on transport in the am. [facility] has already refused transport for tomorrow. Original Note: Attempted to book [facility] for this patient to return home to [facility]. Pt has a guardian. Has cognitive/neuro behavioral issues. S/P fall. On crutches. [facility] is unable to transport pt tonight or tomorrow. [facility] will not even take pt information. Pt information uploaded into [facility]. Will work on another means of transportation home.
--- NOTE | 2022-03-10 06:53 | PC.NURSE ---
SPOKE TO KASHIF FROM [facility] @0608, KASHIF TOOK DEMOGRAPHICS ON PATIENT AND WAS UPDATED THAT THERE ARE STILL NO BLS TRUCKS AVAILABLE
--- NOTE | 2022-03-10 10:21 | PC.NURSE ---
pt ambulated in hallway w crutches and steady, alert, speech clear, skin wpd, states he can safely walk w crutches and get in and out of hosp van, voucher given and van ride set up
== END 2022-03-10 10:22 | disposition skilled nursing facility (03) ==
PROVIDERS: Emergency Provider Internal Medicine; PCP Internal Medicine
DX: S83.92XA Sprain of unspecified site of left knee, initial encounter (principal); W01.0XXA Fall on same level from slipping, tripping and stumbling without subsequent striking against object, initial encounter; M25.462 Effusion, left knee; Y93.89 Activity, other specified; Y92.098 Other place in other non-institutional residence as the place of occurrence of the external cause; Y99.9 Unspecified external cause status
CPT/HCPCS: 73564; 96372; 99283; 99284; J1885

== ENCOUNTER → 2022-03-11 09:34 | Outpatient (BNVA) | payer MEDICARE, SELFPAY | PROVIDERS: PCP Internal Medicine; Visit Provider Internal Medicine Cardiovascular Disease | DX: I95.1 Orthostatic hypotension (principal); R42 Dizziness and giddiness | CPT/HCPCS: 93005; 99202 ==

== ENCOUNTER → 2022-04-13 08:34 | Outpatient (REF) | payer MEDICARE, SELFPAY ==
--- NOTE | 2022-04-13 08:39 | CA_ITS ---
Transthoracic Echocardiogram Patient (Last, First, Middle): Juan M White F Gender: Male Date of : 1950 Age: 71 Procedure Date: 04/13/2022 Procedure Type: Transthoracic Echocardiogram Location: OP Height: 182.88 cm Weight: 85.28 kg BSA: 2.08 m2 Heart Rate: bpm BP: 100 / 60 mmHg Integrity Assessor: GREGORY Referring MD: Osman Pham MD Symptoms: I95.1 - Orthostatic hypotension Study Quality: Adequate Conclusions: - Normal left ventricular size and systolic function. There is mildly increased left ventricular wall thickness. The visually estimated ejection fraction is between 60-65%. - Normal right ventricular cavity size and systolic function. - There is mild dilatation of the sinuses of Valsalva measuring 3.87 cm and mild dilatation of the ascending aorta measuring 3.70 cm. Findings Left Ventricle Normal left ventricular size and systolic function. There is mildly increased left ventricular wall thickness. The visually estimated ejection fraction is between 60-65%. There is no evidence of regional wall motion abnormalities. Diastolic function is normal for age. Right Ventricle Normal right ventricular cavity size and systolic function. Atria Both atria are normal in size. Aortic Valve There is a normal trileaflet aortic valve. There is no aortic valve stenosis. There is trace (trivial) aortic valve regurgitation. Mitral Valve The mitral valve appears normal. There is trace mitral valve regurgitation. There is no mitral valve stenosis. Pulmonic Valve The pulmonic valve is likely normal. Tricuspid Valve Normal tricuspid valve structure. There is trace tricuspid valve regurgitation. Normal right atrial pressure. There is no evidence of pulmonary hypertension. Great Vessels There is mild dilatation of the sinuses of Valsalva measuring 3.87 cm and mild dilatation of the ascending aorta measuring 3.70 cm. The visualized portions of the pulmonary artery and branches are normal. Venous The inferior vena cava is normal in size and collapses greater than 50% with inspiration. Pericardium/Pleural There is no evidence of pericardial effusion. Prior Study Comparison No significant change compared to prior study dated: 10/27/2019. Measurements 2D Linear Measurements IVSd: 1.18 0.6-0.9/0.6-1.0 cm LVIDd: 4.47 3.9-5.3/4.2-5.9 cm LVIDd Index: 2.15 2.4-3.2/2.2-3.1 cm/m2 LVIDs: 2.93 2.0-3.6 cm LVPWd: 1.11 0.7-1.1 cm LA Diam: 3.30 2.7-3.8/3.0-4.0 cm LAIDs Index: 1.59 1.5-2.3 cm/m2 LV Mass: 228.39 67-162/88-224 g LV Mass Index: 109.80 43-95/49-115 g/m2 LVOT Diam: 2.20 3.0+(-)1.3 cm 2D Systolic Function EF 4C: 67.80 >55% EF 2C: 60.30 >55% EF BiP: 63.10 >55% Mitral Valve MV Pk E: 0.56 MV PK A: 0.83 MV Decel Time: 322.00 E/A: 0.70 E'Lateral: 5.55 E'Medial: 5.33 E/E' Med: 10.50 E/E' Lat: 10.10 PHT: 94.00 MVA PHT: 2.34 Decel Atlantic: 1.74 Aortic Valve AoV Pk Julien: 1.64 AoV Mn Julien: 1.02 AoV VTI: 0.31 AoV Pk Grad: 11.00 Aov Mn Grad: 5.00 LIAM Cont.VTI: 2.57 AI Pk Julien: 3.52 AI Atlantic: 1.64 LVOT LVOT Pk Julien: 0.96 LVOT Mn Julien: 0.62 LVOT VTI: 0.21 LVOT Pk Grad: 4.00 LVOT Mn Grad: 2.00 LVOT Diam: 2.20 LVOT Area: 3.80 Diastolic Function MV Pk E: 0.56 MV Pk A: 0.83 E/A: 0.70 E'Medial: 5.33 E/E' Med: 10.50 E' Laterial: 5.55 E/E' Lat: 10.10 Right Ventricle TAPSE (mm): 25.40 TVS' Julien: 17.00 Tricuspid Valve TR Pk Julien: 2.07 TR Pk Grad: 17.00 RA Press: 3.00 RVSP: 20.00 Great Vessels Aorta Sinus of Valsalva: 3.87 2.0-3.[address] Ridge: 3.31 1.7-3.4 cm Ao Asc: 3.70 2.1-3.4 cm Updated in Other Vendor System with Status of Final Osman Pham MD electronically signed on 04/15/2022 12:17:42 PM with status of Final
--- NOTE | 2022-04-13 08:39 | HM_ITS ---
Conclusion: 1. Patient was monitored for total period of 2 days and 23 hours 2. Baseline was normal sinus rhythm with average heart of 71 beats per minute 3. No significant pauses or bradycardia noted 4. Very rare PVCs noted 5. Rare PACs with total of 0.07% 6. Multiple short runs of supraventricular ectopy with longest lasting 20 beats at 147 beats per minute which is irregular and could represent short episodes of atrial fibrillation 7. No sustained atrial fibrillation noted 8. One patient reported event correlated with sinus rhythm MTDD
== END ==
LOC: HO.CARD 08:34
PROVIDERS: PCP Internal Medicine; Visit Provider Internal Medicine Cardiovascular Disease
DX: I95.1 Orthostatic hypotension (principal); I49.9 Cardiac arrhythmia, unspecified; R29.6 Repeated falls
CPT/HCPCS: 93242; 93306

== ENCOUNTER → 2022-04-29 11:05 | Outpatient (REF) | payer MEDICARE, SELFPAY ==
--- NOTE | 2022-04-29 11:08 | HM_ITS ---
* Total monitoring time 30 days. * However, were time listed only as 5.5 days. * Average heart rate 63/Min. Minimum 50/Min. Maximum 138/Min. * Supraventricular ectopy with very brief runs. [place] less than 1%. * In the episode mentioned as symptom but not specified by patient, underlying sinus rhythm. MTDD
== END ==
LOC: HO.CARD 11:05
PROVIDERS: PCP Internal Medicine; Visit Provider Internal Medicine Cardiovascular Disease
DX: I45.10 Unspecified right bundle-branch block (principal)
CPT/HCPCS: 93270

== ENCOUNTER → 2022-06-17 08:19 | Outpatient (BNVA) | payer MEDICARE, SELFPAY | PROVIDERS: PCP Internal Medicine; Visit Provider Internal Medicine Cardiovascular Disease | DX: I95.1 Orthostatic hypotension (principal); I44.4 Left anterior fascicular block; Z91.81 History of falling | CPT/HCPCS: 93005; 99212 ==

== ENCOUNTER 2022-07-11 19:05 | Emergency (ER) | payer MEDICARE, SELFPAY ==
--- NOTE | ~2022-07-11 | XR_ITS ---
EXAMINATION: XR CHEST CLINICAL INFORMATION: Aspiration. COMPARISON: Chest x-ray 09/30/2021 TECHNIQUE: Frontal portable view of the chest was obtained. 2017 hours FINDINGS: No significant abnormality is noted involving the heart, lungs, mediastinum, bony thorax or soft tissues. XR/XR chest 1V IMPRESSION: Unremarkable examination.
[2022-07-11 19:20] VITALS: BP 130/76; BP 144/88; PULSE 80; PULSE 90; RESP 18; TEMP 36.9; O2SAT 95; O2SAT 96; BMI 26.6
[2022-07-11 19:21] VITALS: BP 130/76; PULSE 80; RESP 18; TEMP 36.9; O2SAT 95
--- NOTE | 2022-07-11 19:52 | ED.GENADULT ---
HPI - General Adult General Chief complaint: General Medical Stated complaint: VOMITING WITH DIFFICULTY SWALLOWING Time Seen by Provider: 07/11/22 19:46 Source: patient Mode of arrival: EMS Limitations: no limitations History of Present Illness HPI narrative: Patient is 71 years old [facility] with history of depression, cognitive impairment, seizure disorder, hypertension after eating hot dogs was not able to hold down solids or liquids but now is feeling better had similar episode in the past no endoscopy done in the ER patient was able to drink liquids and had crackers Related Data Home Medications Medication Instructions Recorded Confirmed memantine 5 mg tablet 5 mg PO DAILY 12/04/20 06/17/22 mirtazapine 30 mg tablet 30 mg PO BEDTIME 12/04/20 06/17/22 hydroxyzine HCl 25 mg tablet 25 mg PO BEDTIME PRN 03/11/22 06/17/22 levothyroxine 25 mcg capsule 25 mcg PO DAILY 03/11/22 06/17/22 sertraline 25 mg tablet 25 mg PO DAILY 03/11/22 06/17/22 simvastatin 10 mg tablet 10 mg PO DAILY 03/11/22 06/17/22 Previous Rx's Medication Instructions Recorded atenolol 25 mg tablet 25 mg PO DAILY 30 days #30 tabs 06/04/20 divalproex 500 mg tablet,extended 500 mg PO BID 30 days #60 tabs 06/04/20 release 24 hr naproxen 500 mg tablet 500 mg PO BID PRN pain 10 days #20 03/09/22 tabs Allergies Allergy/AdvReac Type Severity Reaction Status Date / Time No Known Allergies Allergy Verified 06/17/22 08:34 [No Known Allergies*] Review of Systems Review of Systems: Yes all other systems are reviewed and are negative PMFSH Past Medical History 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 Surgical History History of amputation of finger of right hand Family History Family History Mother Heart disease Father Hx of colostomy Social History Social History Household Members: Family Housing: House Are you a primary critical care registered nurse to a significant other at home: No Do you presently have visiting nurse or other home services: No Alcohol intake: never Patient Tobacco Use Status: Former Tobacco user Quit Date: 1989 Smoked: 30 +/- Smoked in Last 30 Days: No Second Hand Smoke Exposure: No Use of substances other than those prescribed or required for medical reasons: No Advance Directives: Yes Advance Directives on File: Yes Advance Directives Date on File: 08/19/20 service: No Sexual orientation: Straight/Heterosexual Physical Exam ED Vital Signs: Vital Signs - 24 hr 07/11/22 19:20 07/11/22 19:21 07/11/22 20:57 Temperature 98.5 F 98.5 F 98.1 F Pulse Rate 80 80 74 Respiratory Rate 18 18 16 Blood Pressure 130/76 130/76 112/64 Pulse Oximetry 95 95 95 Oxygen Delivery Method Room Air Room Air Room Air 07/11/22 22:00 Temperature Pulse Rate 74 Respiratory Rate 16 Blood Pressure 112/64 Pulse Oximetry 96 Oxygen Delivery Method Room Air BMI result Body Mass Index 26.6 Appearance: Alert. Oriented X3. No acute distress. Eyes: PERRLA, No Nystagmus ENT: Pharynx normal. Oral Mucosa moist, no stridor Neck: Normal inspection. Neck supple. CVS: Normal heart rate and rhythm. Pulses normal. Respiratory: No respiratory distress. Equal air entry bilateral, no wheezing/rales/rhonchi Abdomen: Soft and nontender. Bowel sounds are present, no mass palpable, no CVA tenderness Skin: Skin warm and dry. Normal skin color. Normal skin turgor. Extremities: No lower extremity edema. No calf tenderness Neuro: Oriented X 3. No motor deficit. No sensory deficit.No cerebellar signs , cranial nerves II-XII intact Medical Decision Making Medical Decision Making MDM Narrative: Patient feels much better now able to swallow crackers and had water in the ER without any difficulty will discharge [facility]-ray is negative for any aspiration Discharge Plan Discharge Clinical Impression: Dysphagia Patient Disposition: Xfer SNF Instructions: Dysphagia (ED) Additional Instructions: Avoid giving patient hot dogs Give patient food in small pieces crushed . Follow-up with GI for further evaluation including endoscopy Prescriptions: No [facility] memantine 5 mg tablet 5 mg PO DAILY mirtazapine 30 mg tablet 30 mg PO BEDTIME atenolol 25 mg Tablet 25 mg PO DAILY 30 Days Qty: 30 0RF Protocol: Hold for SBP/HR < HOLD for SBP < : 90 HOLD for HR < : 60 divalproex 500 mg Tablet Extended Release 24 Hr 500 mg PO BID 30 Days Qty: 60 0RF naproxen 500 mg tablet 500 mg PO BID PRN (Reason: pain) 10 Days Qty: 20 0RF levothyroxine 25 mcg capsule 25 mcg PO DAILY sertraline 25 mg tablet 25 mg PO DAILY simvastatin 10 mg tablet 10 mg PO DAILY hydroxyzine HCl 25 mg tablet 25 mg PO BEDTIME PRN Referrals: Nuno Foster [Physician] - 1 week Discharge Date/Time: 07/11/22 22:30
[2022-07-11 20:57] VITALS: BP 112/64; PULSE 74; RESP 16; TEMP 36.7; O2SAT 95
--- NOTE | 2022-07-11 21:09 | PC.NURSE ---
Per instructions of Dr Jones contacted [facility], where pt resides, spoke to CASEY Jose to get clarification as to what occurred. Rebeca states that patient had beans and a hotdog and this happened before when he had the same meal. He had difficulty swallowing and was vomiting after eating stated meal. Their plan is to discontinue serving him hotdogs and beans. Provider aware. Provider to discharge pt and requested that EMS be called to have pt transported back to his residence. Software Design Manager informed and waiting on EMS arrival for transport.
--- NOTE | 2022-07-11 21:32 | MHC.EDTECH ---
Willie called at 2131 for a bls transfer back to [facility] within the hour.Adia aware
[2022-07-11 22:00] VITALS: BP 112/64; PULSE 74; RESP 16; O2SAT 96
--- NOTE | 2022-07-11 22:34 | PC.NURSE ---
discharge instructions provided to [facility] to transport pt back to residence; pt alert and oriented; transported via stretcher; EMS took his walker as well; no apparent distress
== END 2022-07-11 22:30 | disposition skilled nursing facility (03) ==
PROVIDERS: Emergency Provider Internal Medicine
DX: R13.10 Dysphagia, unspecified (principal); Z87.891 Personal history of nicotine dependence; Z79.02 Long term (current) use of antithrombotics/antiplatelets; Z79.899 Other long term (current) drug therapy
CPT/HCPCS: 71045; 99283; 99284

== ENCOUNTER 2022-09-11 07:23 | Outpatient (REF) | payer MEDICARE, SELFPAY ==
--- NOTE | ~2022-09-11 | XR_ITS ---
EXAMINATION: XR KNEE AP STANDING CLINICAL INFORMATION: Pain in right knee. COMPARISON: Left knee 03/09/2022. TECHNIQUE: AP bilateral standing view of the knees was obtained. FINDINGS: There is genu varum deformity of both knees with severe loss of medial compartment left knee and moderate loss of medial compartment right knee. Mild bilateral periarticular spurring is seen in the medial compartments. No loose bodies, bony erosive changes or soft tissue seen. XR/XR knee standing BI IMPRESSION: 1. Degenerative arthritic changes medial compartment both knees, worse in the medial compartment left knee. Interval worsening in the medial compartment joint space left knee since 03/09/2022. 2. There is bilateral genu varum deformity of both knees. 3. No acute fracture or dislocation seen.
== END 2022-09-11 07:24 | disposition home or self-care (01) ==
LOC: HO.HOSX 07:23
PROVIDERS: Visit Provider Physician Assistant
DX: M25.561 Pain in right knee (principal); M17.12 Unilateral primary osteoarthritis, left knee
CPT/HCPCS: 73565; 99202

== ENCOUNTER 2022-11-30 09:31 | Emergency (ER) | payer MEDICARE, SELFPAY ==
--- NOTE | ~2022-11-30 | CT_ITS ---
EXAMINATION: CT HEAD WITHOUT CONTRAST CLINICAL INFORMATION: Mental status change. Fall. COMPARISON: Previous head CT most recent November 2021 TECHNIQUE: Contiguous axial imaging was performed from the skull base to vertex without intravenous administration of contrast. This CT examination was performed using dose optimization techniques as appropriate, variously including the following: *Automated exposure control *Adjustment of mA and/or kV according to patient size (this includes techniques or standardized protocols for targeted exams where dose is matched to indication/reason for exam; i.e. extremities or head) *Use of iterative reconstruction technique DLP: 709 mGy-cm FINDINGS: There is no evidence of an extra-axial collection. There is no evidence of intra-axial or extra-axial hemorrhage. Ventricles and extra-axial CSF spaces are appropriate. Franco-white matter differentiation is normal. No mass, mass effect or infarct. No skull fracture. Fatty scalp lesion over the left occipital bone probably representing a lipoma. Mild soft tissue opacification of the sphenoid sinus. Visualized paranasal sinuses, mastoid air cells and middle ears are otherwise clear. CT/CT head/brain wo IV con IMPRESSION: Unremarkable exam.
--- NOTE | ~2022-11-30 | XR_ITS ---
EXAMINATION: XR PELVIS WITH HIP, LEFT CLINICAL INFORMATION: Fall, trauma, left hip pain. COMPARISON: CT abdomen and pelvis 12/04/2016. TECHNIQUE: AP view of the pelvis is performed along with 3 views of the left hip. FINDINGS: The pelvis shows no fracture or dislocation. No diastases SI joints or pubis. Left hip shows no fracture or dislocation. Right hip unremarkable. There is mild whiskering from the iliac crests and ischial tuberosities and greater trochanters. No acute bony abnormality. XR/XR hip LT w PEL1V IMPRESSION: - No fracture or dislocation.
--- NOTE | ~2022-11-30 | XR_ITS ---
EXAMINATION: XR KNEE, LEFT CLINICAL INFORMATION: Acute on chronic knee pain. COMPARISON: None available. TECHNIQUE: PA and lateral views of the left knee. FINDINGS: There is tricompartment osteoarthritic changes similar to prior exam. Moderate suprapatellar effusion is again seen. Hoffa's fat pad appears normal. There is no fracture or dislocation or destructive process. XR/XR knee LT 2V IMPRESSION: - Osteoarthritis with moderate suprapatellar effusion, similar to prior exam 03/09/2022. - No fracture or dislocation.
--- NOTE | 2022-11-30 10:01 | ECG_ITS ---
Test Reason : fall Blood Pressure : / mmHG Vent. Rate : 081 BPM Atrial Rate : 081 BPM P-R Int : 162 ms QRS Dur : 096 ms QT Int : 368 ms P-R-T Axes : 012 -53 017 degrees QTc Int : 427 ms Normal sinus rhythm Incomplete right bundle branch block Left anterior fascicular block Abnormal ECG When compared with ECG of 30-SEP-2021 22:27, No significant change was found Referred By: Andrea Eldridge Electronically Signed By:DARIAN EDGAR MD
[2022-11-30 10:05] VITALS: BP 136/64; BP 142/84; PULSE 92; PULSE 98; RESP 16; TEMP 36.9; O2SAT 94; BMI 31.5
--- NOTE | 2022-11-30 11:05 | ED_ITS ---
HPI - Fall General Chief Complaint: Fall Stated Complaint: FALL,L LEG PAIN PER EMS Time Seen by Provider: 11/30/22 09:41 Source: patient and EMS Mode of arrival: EMS Limitations: altered mental status History of Present Illness HPI Narrative: 72-year-old male with history of osteoarthritis left knee, cognitive decline, seizure disorder presents after a fall. Patient fell yesterday. Is unclear whether he hit his head although he denies this. He denies any chest pain, shortness breath, palpitations or lightheadedness. Patient tells me he is either using a walker wheelchair based. Patient's predominant complaint is left leg pain. He is unable to localize it. Believes is somewhere between his groin in his knee. Pain is moderate in nature. Pain is sharp and aching in nature. The pain is worse with movement and palpation. Pain does not radiate. There is no numbness or tingling. He denies any headache, nausea, vomiting or vision changes. Related Data Home Medications Medication Instructions Recorded Confirmed memantine 5 mg tablet 5 mg PO DAILY 12/04/20 06/17/22 mirtazapine 30 mg tablet 30 mg PO BEDTIME 12/04/20 06/17/22 hydroxyzine HCl 25 mg tablet 25 mg PO BEDTIME PRN 03/11/22 06/17/22 levothyroxine 25 mcg capsule 25 mcg PO DAILY 03/11/22 06/17/22 sertraline 25 mg tablet 25 mg PO DAILY 03/11/22 06/17/22 simvastatin 10 mg tablet 10 mg PO DAILY 03/11/22 06/17/22 Previous Rx's Medication Instructions Recorded atenolol 25 mg tablet 25 mg PO DAILY 30 days #30 tabs 06/04/20 divalproex 500 mg tablet,extended 500 mg PO BID 30 days #60 tabs 06/04/20 release 24 hr naproxen 500 mg tablet 500 mg PO BID PRN pain 10 days #20 03/09/22 tabs Allergies Allergy/AdvReac Type Severity Reaction Status Date / Time No Known Allergies Allergy Verified 09/11/22 09:08 [No Known Allergies*] Review of Systems Review of Systems: CONSTITUTIONAL: Denies weight loss, fever and chills. HEENT: Denies changes in vision and hearing. RESPIRATORY: Denies SOB and cough. CV: Denies palpitations no CP. GI: Denies abdominal pain, nausea, vomiting and diarrhea. : Denies dysuria and urinary frequency. MSK: + myalgia and joint pain. SKIN: Denies rash and pruritus. NEUROLOGICAL: Denies headache and syncope. PSYCHIATRIC: Denies recent changes in mood. Denies anxiety and depression. 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 Surgical History History of amputation of finger of right hand Family History Family History Mother Heart disease Father Hx of colostomy Social History Social History Household Members: Family Housing: House Are you a primary health care / medical job titles to a significant other at home: No Do you presently have visiting nurse or other home services: No Alcohol intake: never Patient Tobacco Use Status: Former Tobacco user Quit Date: 1989 Smoked: 30 +/- Smoked in Last 30 Days: No Second Hand Smoke Exposure: No Use of substances other than those prescribed or required for medical reasons: No Advance Directives: Yes Advance Directives on File: Yes Advance Directives Date on File: 08/19/20 service: No Current occupational status: retired Sexual orientation: Straight/Heterosexual Physical Exam Vital Signs: Vital Signs: Last Vital Signs Temp 98.4 F 11/30/22 10:05 Pulse 82 11/30/22 13:28 Resp 16 11/30/22 13:28 BP 110/72 11/30/22 13:28 Pulse Ox 99 11/30/22 13:28 O2 Del Method Room Air 11/30/22 13:28 BMI result Body Mass Index 31.5 GEN: Well developed, no acute distress, alert, slow speech HEENT: Normocephalic, atraumatic, normal external ears, nose appears normal, no oropharyngeal edema or exudates Eyes: Normal to appearance Neck: Supple, no lymphadenopathy Respiratory: Talks in complete sentences, no respiratory distress, clear to auscultation bilaterally Cardiovascular: Regular rate and rhythm, no murmurs rubs or gallops Abdomen: Soft, nontender, nondistended, no guarding, no rebound Back: No CVA tenderness Extremities: No clubbing cyanosis or edema, no deformity noted Neurologic: No focal neurologic deficits, cranial nerves 2-12 intact, strength is 5/5 bilaterally Skin: No rash Course Course Course Narrative: Patient presents with fall left lower extremity pain and discomfort. Patient also may departure from his baseline mental status will workup the cognitive issues while he is here. Will obtain an x-ray of the pelvis, hip and left knee. Will re-evaluate patient. Reevaluation(s) Reevaluation #1: The workup is complete. There are no acute abnormalities noted. Will discharge patient home. X-rays of her identify no acute traumatic injury. There is no evidence of an etiology for patient's mild departure from baseline mental status. Patient in follow-up as needed. Time: 13:55 Medical Decision Making Medical Decision Making [facility] Narrative: 72-year-old male with cognitive decline, fall with left lower extremity pain. Examination was benign. There is no external rotation or shortening. Will rule out fracture with x-ray. Suspect strain, contusion. Patient did fall and there is some departure from his baseline mental status. Will obtain a CT scan the head to rule out acute traumatic injury such as subdural, epidural hematoma or subarachnoid hemorrhage although I doubt this. For his altered mental status, would like to rule out urinary tract infection, electrolyte abnormality, glycemic issue. Differential Diagnosis Differential Diagnoses: The differential diagnosis associated with the presentation includes (See above) Admission/Observation Consideration of admission/observation: Escalation of care including admission/o bservation considered Lab Data [facility] Lab Attestation statement: I reviewed the patient's lab results. 11/30/22 11:21 11/30/22 11:21 Labs: Lab Results 11/30/22 11/30/22 11/30/22 Range/Units 11:21 11:21 13:26 WBC 9.0 (4.8-10.8) X10*3/uL RBC 4.62 (4.60-5.80) X10*6/uL Hgb 14.4 (14.0-18.0) g/dl Hct 42.5 (42.0-52.0) % MCV 92.0 (80.0-98.0) fL MCH 31.2 (27.0-33.0) pg MCHC 33.9 (31.0-36.0) g/dl RDW 12.3 (11.0-16.0) % Plt Count 96 L D (160-400) X10*3/uL MPV 9.0 L (9.4-12.4) fL Immature Gran % (Auto) 0.2 (0.0-0.4) % Neut % (Auto) 62.4 (45-73) % Lymph % (Auto) 21.9 (20-40) % Glades % (Auto) 15.2 H (2-11) % Eos % (Auto) 0.2 (0-4) % Baso % (Auto) 0.1 (0-2) % Lymph # (Auto) 2.0 (1.2-4.9) X10*3/uL Glades # (Auto) 1.4 H (0.1-1.2) X10*3/uL Eos # (Auto) 0.0 (0.0-0.4) X10*3/uL Baso # (Auto) 0.0 (0.0-0.2) X10*3/uL Abs Immat Gran (auto) 0.02 (0.00-0.03) X10*3/uL Absolute Neuts (auto) 5.6 (2.0-8.3) x10*3/uL Absolute Nucleated RBC 0.000 (0.0-0.012) X10*3/uL Nucleated RBC % (auto) 0.0 (0.0-0.2) /100WBC Sodium 140 (135-145) mmol/L Potassium 4.5 (3.3-5.1) mmol/L Chloride 106 (96-108) mmol/L Carbon Dioxide 27 (22-29) mmol/L Anion Gap 12 (12-20) BUN 13 (9-16) mg/dL Creatinine 0.82 (0.5-1.4) mg/dL Estim Creat Clear Calc 90.5 Estimated GFR > 60 Random Glucose 147 H (60-115) mg/dL Calcium 9.1 (8.4-10.2) mg/dL Urine Color Yellow Urine Appearance Clear Urine pH 6.5 (5.0-9.0) Ur Specific [place] <= 1.005 (1.005-1.025) Urine Protein Negative (Neg-Trace) mg/dL Urine Glucose (UA) Negative (Negative) mg/dL Urine Ketones Negative (Negative) mg/dL Urine Blood Negative (Negative) Urine Nitrite Negative (Negative) Ur Leukocyte Esterase Negative (Negative) Independent Interpretation I performed an independent interpretation of an: EKG (Normal sinus rhythm heart rate 81, no acute ST elevations depressions, possible incomplete right bundle- branch block, left axis deviation suggestive of with left anterior fascicular block.) Independent Historian Clinical information obtained from an independent historian. History obtained from or confirmed by: EMS Prescription Management I considered prescription management with: Pain Medication Discharge Plan Discharge Clinical Impression: Accidental fall, Leg pain, left Patient Disposition: Home, Self-Care Instructions: Fall Prevention (ED), Leg Pain (ED) Prescriptions: No Action memantine 5 mg tablet 5 mg PO DAILY mirtazapine 30 mg tablet 30 mg PO BEDTIME atenolol 25 mg Tablet 25 mg PO DAILY 30 Days Qty: 30 0RF Protocol: Hold for SBP/HR < HOLD for SBP < : 90 HOLD for HR < : 60 divalproex 500 mg Tablet Extended Release 24 Hr 500 mg PO BID 30 Days Qty: 60 0RF naproxen 500 mg tablet 500 mg PO BID PRN (Reason: pain) 10 Days Qty: 20 0RF levothyroxine 25 mcg capsule 25 mcg PO DAILY sertraline 25 mg tablet 25 mg PO DAILY simvastatin 10 mg tablet 10 mg PO DAILY hydroxyzine HCl 25 mg tablet 25 mg PO BEDTIME PRN Referrals: Physician,Unknown J [Primary Care Provider] - (Primary care provider)
--- NOTE | 2022-11-30 11:19 | PC.NURSE ---
pt alert, and oriented to place and situation but has baseline cognitive impairments. per EMS, pt fell yesterday at facility. Pt did not report and pain at the time but today reported left leg pain. Pt changed over to hospital attire and has gone for imaging. pt was incontinent, bladder scan shower 312 in bladder. Will straight cath pt per MD order with tech
[2022-11-30 11:25] LABS: Basophils Percent Auto 0.1 % (0-2); Eosinophils Percent Auto 0.2 % (0-4); Hematocrit 42.5 % (42.0-52.0); Hemoglobin 14.4 g/dl (14.0-18.0); Imm Gran Abs Auto 0.02 X10*3/uL (0.00-0.03); Imm Gran Pct Auto 0.2 % (0.0-0.4); Lymphocytes Percent Auto 21.9 % (20-40); MANUAL DIFF FLAG NO; Mean Corpuscular HGB Conc 33.9 g/dl (31.0-36.0); Mean Corpuscular Hemoglobin 31.2 pg (27.0-33.0); Monocytes Absolute Auto 1.4 X10*3/uL (0.1-1.2); Monocytes Percent Auto 15.2 % (2-11); Neutrophils Absolute Auto 5.6 x10*3/uL (2.0-8.3); Neutrophils Percent Auto 62.4 % (45-73); Platelet Count 96 X10*3/uL (160-400); Red Blood Count 4.62 X10*6/uL (4.60-5.80); Red Cell Distribution Width 12.3 % (11.0-16.0)
[2022-11-30 11:40] LABS: Anion Gap 12 (12-20); Blood Urea Nitrogen 13 mg/dL (9-16); Calcium 9.1 mg/dL (8.4-10.2); Carbon Dioxide 27 mmol/L (22-29); Chloride 106 mmol/L (96-108); Creatinine Clr Calc Pharmacy 90.5; Estimated Glomerular Filt Rate > 60; Glucose Random 147 mg/dL (60-115); Potassium 4.5 mmol/L (3.3-5.1); Sodium 140 mmol/L (135-145)
[2022-11-30 13:28] VITALS: BP 110/72; PULSE 82; RESP 16; O2SAT 99
--- NOTE | 2022-11-30 13:29 | PC.NURSE ---
urine sample sent to lab. pt resting awaiting imaging results. reports 5/10 pain in left leg. vss
[2022-11-30 13:34] LABS: Appearance Urine Clear; Color Urine Yellow; Glucose Urine UA Negative (Negative); Leukocyte Esterase Urine Negative (Negative); Nitrite Urine Negative (Negative); PH 6.5 (5.0-9.0); Specific Gravity - Urine <= 1.005 (1.005-1.025); Urine Blood Negative (Negative); Urine Ketones Negative (Negative); Urine Protein Negative (Neg-Trace)
--- NOTE | 2022-11-30 20:39 | MHC.CM.ED ---
Addendum entered by Dian Zheng 11/30/22 20:50: CM attempted to call sisterRabia, without success. Unable to leave message. Original Note: CM completed medical records review after attempting to contact Sister/HCP twice and leaving message for nursing at [facility]. Pt has hx of atypical depression, seizures, and cognitive/neurobehavioral dysfunction. CM met with patient and patient was cooperative, but offered little information. Pt is unsure if he has a guardian, but thinks his sister is his HCP. CM unsure of patient understanding.Sister/HCP Rabia White ([phone]). Called at [phone] and [phone]. Unable to leave a message. [phone] and left message with nursing to return call to CM. PCP is Derick Garber. MOLST on file is full code. Medical Certificate guardianship/conservatorship on file, but no record of actual guardianship or who guardian is. No records accompanied pt from [facility]. Pt tells CM he does not use a cane/walker, but told ED provider he did. Pt c/o pain with ambulation, unknown cause. No injury. Work up negative. PT is pending. Locasl referrals placed, but will need to verify in the morning if patient has guardian or not. Will attempt to reach sister/HCP Rabia. Unable to verify Covid vax status. CM will follow for discharge planning.
[2022-11-30 22:00] VITALS: BP 116/44; PULSE 91; RESP 16; TEMP 37.3; O2SAT 98
[2022-12-01 06:00] VITALS: BP 112/68; PULSE 91; RESP 20; TEMP 37.3; O2SAT 94
[2022-12-01 07:30] VITALS: BP 125/71; PULSE 92; RESP 16; TEMP 36.8; O2SAT 92
[2022-12-01 09:13] VITALS: PULSE 72; TEMP 36.6
[2022-12-01] MEDS: atenoloL 25 MG TABLET 12.5 MG PO (09:42)
[2022-12-01] MEDS: Memantine HCl 5 MG TABLET PO (09:43)
[2022-12-01] MEDS: Sertraline HCL 25 MG TABLET PO (09:44)
[2022-12-01] MEDS: Atorvastatin Calcium 10 MG TABLET PO (09:44)
[2022-12-01] MEDS: Levothyroxine Sodium 25 MCG TABLET PO (09:44)
[2022-12-01] MEDS: Divalproex Sodium ER 500 MG TAB.ER.24H PO ×2 (09:44→21:40)
--- NOTE | 2022-12-01 14:57 | MHC.CM.ED ---
Addendum entered by Kayla Cam 12/01/22 16:00: Received copy of guardianship from Heriberto at [facility]. Patient privately pays at their facility. T/W attempted to reach Chelsea Singh via telephone at [phone]. Left message requesting return telephone call. It does not appear that Chelsea has the right to admit to a residential facility with current guardianship order. There is no conservator info available at this time. Waiting for return call so more info about conservator and finances can be obtained. Original Note: Patient remains in ER overflow. Physical therapy eval completed. Rehab is recommended. Patient has not been inpatient in the past 30 days. Referral sent to all 3 acute rehab. No bed offers made. Referral sent to local residential facilities. Patient [facility] a resident of [facility]. T/W is trying to get in touch with Meliza at [facility] to confirm if patient has guardianship. Left multiple messages requesting return telephone call. Attempted to reach Chelsea Singh via telephone at [phone]. Phone line unable to connect. Continue to monitor for d/c needs.
[2022-12-01 16:09] VITALS: BP 111/69; PULSE 92; RESP 20; TEMP 36.8; O2SAT 93
[2022-12-01 20:53] VITALS: BP 119/73; PULSE 96; RESP 20; TEMP 38; O2SAT 94
[2022-12-01] MEDS: Mirtazapine 30 MG TABLET PO (21:40)
[2022-12-01] MEDS: Acetaminophen 325 MG TABLET 975 MG PO (22:45)
[2022-12-01 23:38] LABS: Influenza A PCR NEGATIVE (Negative); Influenza B PCR NEGATIVE (Negative); Resp Syncy Virus RNA Qual PCR NEGATIVE (Negative); SARS COV2 PCR INHOUSE NEGATIVE (Negative)
--- NOTE | 2022-12-02 00:55 | PC.NURSE ---
Assumed care @ 1900. Patient A&Ox2 to self and place, reoriented. Bed alarm on and safety measures in place. Lungs clear, spo2 mid 90's on RA. Occassional non-productive cough noted and evening temp 100.4. Covering MD notified. Orders placed for 1x 975mg tylenol given with +effect. Respiratory panel sent per MD, results negative. Cough and deep breathing encouraged. Incontinent of bowel and bladder. [place] catheter in place patent of cyu. Assisted with repositioning.
[2022-12-02 05:35] VITALS: BP 123/76; PULSE 79; RESP 18; TEMP 36; O2SAT 95
[2022-12-02] MEDS: Levothyroxine Sodium 25 MCG TABLET PO (06:41)
[2022-12-02 07:14] VITALS: BP 127/80; PULSE 76; RESP 20; TEMP 36.6; O2SAT 93
[2022-12-02] MEDS: atenoloL 25 MG TABLET 12.5 MG PO (07:39)
[2022-12-02] MEDS: Memantine HCl 5 MG TABLET PO (07:40)
[2022-12-02] MEDS: Sertraline HCL 25 MG TABLET PO (07:40)
[2022-12-02] MEDS: Divalproex Sodium ER 500 MG TAB.ER.24H PO ×2 (07:40→21:31)
[2022-12-02] MEDS: Atorvastatin Calcium 10 MG TABLET PO (07:40)
--- NOTE | 2022-12-02 08:04 | MHC.EDTECH ---
Pt refused breakfast this AM., pt states he needs to sleep
--- NOTE | 2022-12-02 08:50 | MHC.EDTECH ---
fall risk measures placed
--- NOTE | 2022-12-02 09:29 | PC.NURSE ---
Addendum entered by Regis Lora RN 12/02/22 10:02: [place] catheter/not spicer Original Note: patient aaox3, calm and cooperative, drowsy. patient denies sob, dizziness, nausea/vomiting, and pain. lung sounds clear/dim throughout. abd WNL. spicer catheter draining clear/yellow urine. took pills whole with water.
--- NOTE | 2022-12-02 10:58 | MHC.EDTECH ---
rounded on pt to assist with ADLs , pt refused
[2022-12-02 13:21] VITALS: BP 123/73; PULSE 70; RESP 18; TEMP 36.8; O2SAT 96
--- NOTE | 2022-12-02 13:24 | MHC.EDTECH ---
clear pt tray ,vitals, pt refused adls , will try again in the afternoon
--- NOTE | 2022-12-02 14:51 | MHC.CM.ED ---
Patient remains in ER overflow. Spoke with patient's guardian, Mortarman Chelsea Singh via telephone at [phone]. Chelsea is also patient's guardian. Chelsea agreeable to referral being broadcasted to see if any respite pay beds are available. Patient has funds to private pay. Clinical updates sent to faclities still following patient: [facility], [facility], [facility], [facility], [facility], [facility], [address] [place] [address], [facility]. Chelsea is aware she will need to file an Intent to admit with the court when facility is found. Continue to monitor for d/c needs.
--- NOTE | 2022-12-02 15:52 | MHC.EDTECH ---
pt ask for bedpan, had small bowel moment , partial bed bath , pt refused a full bath ,alarm placed
--- NOTE | 2022-12-02 17:18 | MHC.EDTECH ---
placed bed coelho / large bm
[2022-12-02] MEDS: Mirtazapine 30 MG TABLET PO (21:31)
[2022-12-02 21:32] VITALS: BP 127/64; PULSE 89; RESP 18; TEMP 36.9; O2SAT 93
[2022-12-03 06:00] VITALS: BP 125/73; PULSE 87; RESP 18; TEMP 37.1; O2SAT 93
[2022-12-03] MEDS: Levothyroxine Sodium 25 MCG TABLET PO (06:22)
--- NOTE | 2022-12-03 06:38 | PC.NURSE ---
Patient remains in ED overflow overnight. A&Ox3, calm and cooperative. VSS. Denies chest pain, sob, n/v, pain. +pedal pulses/cms, -edema. LSCTA on RA with spo2 maintained. Abd WNL. [place] cath in place and patent of odorless cyu. Patient allowed to rest, slept most of night. Bed alarm on and safety measures in place.
[2022-12-03] MEDS: Divalproex Sodium ER 500 MG TAB.ER.24H PO ×2 (09:10→20:31)
[2022-12-03] MEDS: Sertraline HCL 25 MG TABLET PO (09:10)
[2022-12-03] MEDS: atenoloL 25 MG TABLET 12.5 MG PO (09:10)
[2022-12-03] MEDS: Memantine HCl 5 MG TABLET PO (09:10)
[2022-12-03] MEDS: Atorvastatin Calcium 10 MG TABLET PO (09:16)
--- NOTE | 2022-12-03 10:54 | PC.NURSE ---
Pt AOx3. Denies any pain. Took morning meds whole with water. Bed alarm on and pt is resting comfortably in bed.
[2022-12-03 13:06] VITALS: BP 113/67; PULSE 84; RESP 16; TEMP 36.4; O2SAT 92
--- NOTE | 2022-12-03 13:45 | MHC.CM.ED ---
Addendum entered by Kayla Cam 12/03/22 14:41: Spoke with Chelsea via telephone at [phone]. Facility options discussed. [facility]. Chelsea will be out of the area until Wednesday. She will not be able to file Intent to Admit paperwork with court before Wednesday. Jony Payne made aware. Continue to monitor for d/c needs. Original Note: Patient remains in ER overflow. Attempted to reach guardian to discuss placement choices. Left voicemail requesting return telephone call.
[2022-12-03] MEDS: Mirtazapine 30 MG TABLET PO (20:31)
--- NOTE | 2022-12-03 20:37 | PC.NURSE ---
Patient in bed with eyes closed patient showing no distress at this time patient vitals are stable at this time patient received all night medications with no issues patient will continue to be monitored for safety
[2022-12-03 22:53] VITALS: BP 123/71; PULSE 89; O2SAT 94
[2022-12-04 06:00] VITALS: BP 114/80; PULSE 87; RESP 18; TEMP 37.3; O2SAT 92
[2022-12-04] MEDS: Levothyroxine Sodium 25 MCG TABLET PO (06:11)
[2022-12-04] MEDS: atenoloL 25 MG TABLET 12.5 MG PO (09:14)
[2022-12-04] MEDS: Atorvastatin Calcium 10 MG TABLET PO (09:14)
[2022-12-04] MEDS: Sertraline HCL 25 MG TABLET PO (09:14)
[2022-12-04] MEDS: Divalproex Sodium ER 500 MG TAB.ER.24H PO ×2 (09:14→20:25)
[2022-12-04] MEDS: Memantine HCl 5 MG TABLET PO (09:14)
[2022-12-04 13:57] VITALS: BP 120/70; PULSE 80; RESP 16; TEMP 36.8; O2SAT 92
[2022-12-04] MEDS: Mirtazapine 30 MG TABLET PO (20:25)
[2022-12-05 05:45] VITALS: BP 133/78; PULSE 79; RESP 17; TEMP 37.1; O2SAT 93
[2022-12-05 06:00] VITALS: BP 126/68; PULSE 78; RESP 18; TEMP 36.2; O2SAT 93
[2022-12-05] MEDS: Levothyroxine Sodium 25 MCG TABLET PO (06:01)
[2022-12-05] MEDS: atenoloL 25 MG TABLET 12.5 MG PO (08:10)
[2022-12-05] MEDS: Atorvastatin Calcium 10 MG TABLET PO (08:11)
[2022-12-05] MEDS: Divalproex Sodium ER 500 MG TAB.ER.24H PO ×2 (08:11→20:04)
--- NOTE | 2022-12-05 10:43 | PC.NURSE ---
Assumed care of patient at 0645, pt A&O and cooperative with care. Pt denies pain at this time. VSS, all safety measures in place. Pharmacy called for missing meds from the [facility], awaiting medication to be delivered to floor.
[2022-12-05] MEDS: Memantine HCl 5 MG TABLET PO (10:58)
[2022-12-05] MEDS: Sertraline HCL 25 MG TABLET PO (10:58)
[2022-12-05 13:35] VITALS: BP 125/71; PULSE 83; RESP 16; TEMP 36.4; O2SAT 92
[2022-12-05 19:21] VITALS: BP 126/70; PULSE 76; RESP 18; TEMP 36.7; O2SAT 94
--- NOTE | 2022-12-05 19:21 | MHC.EDTECH ---
Pt resting comfortably, VSS
[2022-12-05] MEDS: Mirtazapine 30 MG TABLET PO (20:04)
[2022-12-05 23:36] VITALS: BP 123/70; PULSE 62; RESP 18; TEMP 37.1; O2SAT 91
[2022-12-06] MEDS: Levothyroxine Sodium 25 MCG TABLET PO (06:14)
[2022-12-06 06:55] VITALS: BP 128/84; PULSE 82; RESP 16; TEMP 37; O2SAT 95
[2022-12-06] MEDS: Divalproex Sodium ER 500 MG TAB.ER.24H PO ×2 (08:39→19:58)
[2022-12-06] MEDS: Sertraline HCL 25 MG TABLET PO (08:39)
[2022-12-06] MEDS: Atorvastatin Calcium 10 MG TABLET PO (08:39)
[2022-12-06] MEDS: Memantine HCl 5 MG TABLET PO (08:39)
[2022-12-06] MEDS: atenoloL 25 MG TABLET 12.5 MG PO (08:39)
--- NOTE | 2022-12-06 09:22 | PC.NURSE ---
Assumed care of this patient at 06:45, Pt is resting in bed with eyes closed, did not want breakfast, took all morning medications with no issues, vitals stable, safety measures in place.
--- NOTE | 2022-12-06 12:39 | MHC.CM.ED ---
Met with pt who is holding in ED Overflow pending guardianship amendment for placement. Greer, conversant, in agreement w/CM plan. Pt's guardian to file on 12/07. Jony gu.
[2022-12-06 14:00] VITALS: BP 121/71; PULSE 80; RESP 18; TEMP 36.2; O2SAT 94
[2022-12-06] MEDS: Mirtazapine 30 MG TABLET PO (19:58)
[2022-12-06 22:48] VITALS: BP 130/77; PULSE 89; O2SAT 92
[2022-12-07] MEDS: Levothyroxine Sodium 25 MCG TABLET PO (05:39)
[2022-12-07 06:00] VITALS: BP 118/85; PULSE 71; RESP 16; TEMP 36.7; O2SAT 97
[2022-12-07] MEDS: atenoloL 25 MG TABLET 12.5 MG PO (08:07)
[2022-12-07] MEDS: Memantine HCl 5 MG TABLET PO (08:08)
[2022-12-07] MEDS: Sertraline HCL 25 MG TABLET PO (08:09)
[2022-12-07] MEDS: Divalproex Sodium ER 500 MG TAB.ER.24H PO ×2 (08:09→20:09)
[2022-12-07] MEDS: Atorvastatin Calcium 10 MG TABLET PO (08:15)
--- NOTE | 2022-12-07 08:32 | MHC.CM.ED ---
Patient remains in ER overflow. Courts are closed due to Holiday. Left message for patient's guardian, Chelsea, via telephone at [phone] explaining this. Jony Payne updated on this. Continue to monitor for d/c needs.
--- NOTE | 2022-12-07 12:21 | PC.NURSE ---
Assumed care at 07:00. Patient slept late, arousable to voice. Patient fully compliant with medications, pills whole with thin liquids. Slow to respond, but answers questions appropriately. Denies pain. Incontinent of urine, [place] catheter somewhat effective, pulls off catheter. Ate only yogurt this morning and refused rest of breakfast. Room air, breathing easily.
[2022-12-07 13:32] VITALS: BP 124/68; PULSE 82; RESP 19; TEMP 36.4
--- NOTE | 2022-12-07 17:42 | PC.NURSE ---
Patient alerit and oriented, no complaints. Feeling well . Mathew cath in place, draining len colored urine. Patient refused dinner. All needs met.
[2022-12-07] MEDS: Mirtazapine 30 MG TABLET PO (20:09)
--- NOTE | 2022-12-07 20:13 | PC.NURSE ---
Pt resting at the bedside in no apparent distress. Reports no pain at this time. Medicated po as ordered. Pt tolerated well. Will continue to monitor.
[2022-12-07 22:47] VITALS: BP 123/74; PULSE 93; O2SAT 93
--- NOTE | 2022-12-08 00:36 | PC.NURSE ---
Pt sleeping at the bedside in no apparent distress. Breaths are even, regular and unlabored with equal chest rises. Will continue to monitor.
[2022-12-08] MEDS: Levothyroxine Sodium 25 MCG TABLET PO (05:56)
[2022-12-08 05:57] VITALS: BP 102/66; PULSE 82; RESP 12; TEMP 36.5; O2SAT 94
[2022-12-08] MEDS: Memantine HCl 5 MG TABLET PO (08:25)
[2022-12-08] MEDS: Atorvastatin Calcium 10 MG TABLET PO (08:25)
[2022-12-08] MEDS: Sertraline HCL 25 MG TABLET PO (08:25)
[2022-12-08] MEDS: Divalproex Sodium ER 500 MG TAB.ER.24H PO ×2 (08:25→20:39)
[2022-12-08] MEDS: atenoloL 25 MG TABLET 12.5 MG PO (08:25)
--- NOTE | 2022-12-08 13:06 | PC.NURSE ---
am care provided. pt repostioned for comfort. [place] cath changed. Yamilet care provided. Ate 100% of breakfast/100% lunch. sleeping at time time.
--- NOTE | 2022-12-08 13:07 | MHC.EDTECH ---
Pt anisha busch came off and he urinated in bed. He was washed up, miguel ángel changed, bed was washed down and linens were changed. pt currently sleeping
[2022-12-08 13:51] VITALS: BP 99/64; PULSE 76; RESP 18; TEMP 36.4; O2SAT 95
--- NOTE | 2022-12-08 14:19 | MHC.CM.ED ---
Patient remains in ER overflow. Attempted to speak to patient's guardian, Chelsea Singh, via telephone at [phone]. Left message requesting return telephone call to discuss if Intent to admit was filed with the court. Continue to monitor for d/c needs.
--- NOTE | 2022-12-08 14:57 | PC.NURSE ---
Report received from off-going RN. pt denies any needs currently. [place] cath remains in place.
[2022-12-08 15:06] VITALS: BP 96/71; PULSE 73; RESP 18; TEMP 36.9; O2SAT 92
--- NOTE | 2022-12-08 19:00 | PC.NURSE ---
Report received from RN, Ruby Garrett about pts present condition, the reason for the admission to the hospital, what the care plan is and what is to be expected by the care placed by MD. All pertinent information about lab results, test results and treatments provided were also discussed. At moment pt is resting comfortably in bed, call kiser within reach, bed in low position, valuables within pts reach. Pt appears in NAD.
[2022-12-08 20:00] VITALS: BP 109/68; PULSE 79; RESP 18; TEMP 37
[2022-12-08] MEDS: Mirtazapine 30 MG TABLET PO (20:39)
[2022-12-08 22:00] VITALS: BP 110/70; PULSE 70; RESP 16; TEMP 37; O2SAT 100
[2022-12-09 06:00] VITALS: BP 127/79; PULSE 91; RESP 16; TEMP 37.2; O2SAT 93
[2022-12-09] MEDS: Levothyroxine Sodium 25 MCG TABLET PO (06:25)
[2022-12-09] MEDS: atenoloL 25 MG TABLET 12.5 MG PO (08:17)
[2022-12-09] MEDS: Divalproex Sodium ER 500 MG TAB.ER.24H PO ×2 (08:17→19:45)
[2022-12-09] MEDS: Sertraline HCL 25 MG TABLET PO (08:17)
[2022-12-09] MEDS: Atorvastatin Calcium 10 MG TABLET PO (08:18)
[2022-12-09] MEDS: Memantine HCl 5 MG TABLET PO (08:18)
[2022-12-09 08:33] VITALS: BP 126/69; PULSE 91; RESP 19; TEMP 36.8; O2SAT 92
--- NOTE | 2022-12-09 09:17 | MHC.CM.ED ---
Patient remains in ER overflow. Attempted to speak with patient's guardian, Chelsea Francisco via telephone at [phone]. Left message requesting return telephone call. Sonal Fields aware. Continue to monitor for d/c needs.
--- NOTE | 2022-12-09 10:09 | PC.NURSE ---
assumed patient care at 0645, pt A&O x2, very soft spoken, took all scheduled meds whole with water, call kiser within [facility], [place] cath draining clear yellow urine, pt reports no pain or other needs at this time
[2022-12-09 18:04] VITALS: BP 130/82; PULSE 83; RESP 14; TEMP 36.2; O2SAT 96
[2022-12-09] MEDS: Mirtazapine 30 MG TABLET PO (19:45)
[2022-12-10] MEDS: Levothyroxine Sodium 25 MCG TABLET PO (05:14)
[2022-12-10 06:00] VITALS: BP 131/73; PULSE 89; RESP 16; TEMP 36.6; O2SAT 97
[2022-12-10] MEDS: Acetaminophen 325 MG TABLET 975 MG PO (10:14)
[2022-12-10] MEDS: Divalproex Sodium ER 500 MG TAB.ER.24H PO ×2 (10:15→19:45)
[2022-12-10] MEDS: Atorvastatin Calcium 10 MG TABLET PO (10:15)
[2022-12-10] MEDS: Sertraline HCL 25 MG TABLET PO (10:15)
[2022-12-10] MEDS: atenoloL 25 MG TABLET 12.5 MG PO (10:15)
[2022-12-10] MEDS: Memantine HCl 5 MG TABLET PO (10:15)
--- NOTE | 2022-12-10 10:55 | MHC.CM.ED ---
Addendum entered by Kayla Cam 12/10/22 13:40: Guardian signed paperwork. Cnc Machine Operator Whitehouse's office will file it with the court. Original Note: Patient remains in ER overflow. Sonal Fields CM director emailed copy of Intent to Admit to guardian. Chelsea has been asked to sign it and send it back [facility] so that Cnc Machine Operator Sike's Office can file with the court. Jony Payne made aware. Continue to monitor for d/c needs.
--- NOTE | 2022-12-10 11:58 | PC.NURSE ---
Patient Alert, oriented x2. Reports pain to b/l hips. Medicated with tylenol and repositioned with good effect. Patient refused breakfast and lunch.
[2022-12-10 14:00] VITALS: BP 116/65; PULSE 76; RESP 20; TEMP 36.4; O2SAT 92
[2022-12-10 16:00] VITALS: BP 112/65; PULSE 86; RESP 16; TEMP 36.9; O2SAT 97
[2022-12-10] MEDS: Mirtazapine 30 MG TABLET PO (19:45)
[2022-12-10 20:23] LABS: Glucose, Whole Blood 178 mg/dL (60-115)
--- NOTE | 2022-12-10 20:23 | PC.NURSE ---
patient in bed with eyes closed patient was given all medications with no issues at this time patient ADL care was done and patient was repositioned patient will continue to be monitored throughout the shift maintained
[2022-12-10 21:48] VITALS: BP 118/67; PULSE 86; RESP 16; TEMP 36.8; O2SAT 96
--- NOTE | 2022-12-11 01:06 | PC.NURSE ---
patient was resting with eyes closed showing no distress at this time patient will continue to be monitored for safety
[2022-12-11 05:29] VITALS: BP 110/67; PULSE 88; RESP 16; TEMP 37.1; O2SAT 92
[2022-12-11] MEDS: Levothyroxine Sodium 25 MCG TABLET PO (05:30)
[2022-12-11 07:20] VITALS: BP 121/73; PULSE 90; RESP 20; TEMP 36.6; O2SAT 93
[2022-12-11] MEDS: Acetaminophen 325 MG TABLET 975 MG PO (07:28)
[2022-12-11] MEDS: Divalproex Sodium ER 500 MG TAB.ER.24H PO (07:42)
[2022-12-11] MEDS: atenoloL 25 MG TABLET 12.5 MG PO (07:42)
[2022-12-11] MEDS: Memantine HCl 5 MG TABLET PO (07:42)
[2022-12-11] MEDS: Atorvastatin Calcium 10 MG TABLET PO (07:42)
[2022-12-11] MEDS: Sertraline HCL 25 MG TABLET PO (07:43)
--- NOTE | 2022-12-11 09:15 | PC.NURSE ---
Assumed care of patient at 0645, pt A&Ox2 and able to make needs known. Pt endorsing lower back pain, PRN Tylenol given with AM med pass with good effect. VSS, safety measures in place, pt washed up at 0900 by EXECUTIVE MANAGER, all needs met at this time, awaiting disposition.
--- NOTE | 2022-12-11 13:32 | MHC.CM.ED ---
Patient remains in ER overflow. Copy of filed Intent to admit obtained from [employer]er Mcdonald office and forwarded to Jony Payne. Jony Payne working with guardian to arrange private pay and complete paperwork. Continue to monitor for d/c needs.
--- NOTE | 2022-12-11 14:09 | PC.NURSE ---
Patient refused lunch, taking liquids occasionally. Denies pain, resting in bed comfortably watching tv
[2022-12-11 14:34] VITALS: BP 108/69; PULSE 70; RESP 18; TEMP 36.3; O2SAT 94
--- NOTE | 2022-12-11 14:36 | MHC.CM.ED ---
Patient will transfer to [facility] via BLS at 330pm. Willie booked. Med nec with chart. Patient, guardian Allyssa Tran RN and Maykel JEAN-BAPTISTE aware. Carly at [facility] made aware. Continue to monitor for d/c needs.
--- NOTE | 2022-12-11 15:28 | PC.NURSE ---
EMS here for transport to [facility]
== END 2022-12-11 15:32 | disposition home or self-care (01) ==
PROVIDERS: Physician Assistant; Emergency Provider Emergency Medicine
DX: M79.605 Pain in left leg (principal); R41.81 Age-related cognitive decline; R41.82 Altered mental status, unspecified; M17.12 Unilateral primary osteoarthritis, left knee; G40.909 Epilepsy, unspecified, not intractable, without status epilepticus; Z89.021 Acquired absence of right finger(s); Z91.81 History of falling; Z20.822 Contact with and (suspected) exposure to COVID-19
CPT/HCPCS: 0241U; 36415; 70450; 73502; 73560; 80048; 81003; 82947; 85025; 93005; 97162; 99285

== ENCOUNTER 2022-12-15 05:49 | Outpatient (REF) | payer MEDICARE, SELFPAY ==
[2022-12-15 05:52] LABS: MANUAL DIFF FLAG NO
[2022-12-15 06:02] LABS: Basophils Percent Auto 0.3 % (0-2); Eosinophils Absolute Auto 0.1 X10*3/uL (0.0-0.4); Eosinophils Percent Auto 0.5 % (0-4); Hematocrit 42.6 % (42.0-52.0); Hemoglobin 14.2 g/dl (14.0-18.0); Imm Gran Abs Auto 0.06 X10*3/uL (0.00-0.03); Imm Gran Pct Auto 0.5 % (0.0-0.4); Lymphocytes Absolute Auto 2.2 X10*3/uL (1.2-4.9); Lymphocytes Percent Auto 18.6 % (20-40); Mean Corpuscular HGB Conc 33.3 g/dl (31.0-36.0); Mean Corpuscular Hemoglobin 30.9 pg (27.0-33.0); Mean Corpuscular Volume 92.6 fL (80.0-98.0); Mean Platelet Volume 9.3 fL (9.4-12.4); Monocytes Absolute Auto 1.5 X10*3/uL (0.1-1.2); Monocytes Percent Auto 12.4 % (2-11); Neutrophils Percent Auto 67.7 % (45-73); Platelet Count 182 X10*3/uL (160-400); Red Cell Distribution Width 11.9 % (11.0-16.0); White Blood Count 11.8 X10*3/uL (4.8-10.8)
[2022-12-15 06:15] LABS: Alanine Aminotransferase 11 U/L (0-40); Albumin Level 3.2 g/dL (3.5-5.0); Alkaline Phosphatase 41 U/L (39-117); Anion Gap 15 (12-20); Aspartate Amino Transferase 17 U/L (5-37); Bilirubin Total 0.9 mg/dL (0.0-1.0); Blood Urea Nitrogen 19 mg/dL (9-16); Calcium 9.1 mg/dL (8.4-10.2); Carbon Dioxide 23 mmol/L (22-29); Chloride 108 mmol/L (96-108); Estimated Glomerular Filt Rate > 60; Glucose Random 133 mg/dL (60-115); Potassium 4.5 mmol/L (3.3-5.1); Sodium 141 mmol/L (135-145); Total Protein 6.9 g/dL (6.5-8.0)
== END 2022-12-15 05:50 | disposition home or self-care (01) ==
LOC: HO.MMNH1L 05:49
PROVIDERS: Visit Provider Family Medicine
DX: R27.8 Other lack of coordination (principal); F32.9 Major depressive disorder, single episode, unspecified
CPT/HCPCS: 36415; 80053; 85025

== ENCOUNTER 2022-12-21 06:17 | Outpatient (REF) | payer MEDICARE, SELFPAY ==
[2022-12-21 06:09] LABS: MANUAL DIFF FLAG NO
[2022-12-21 06:40] LABS: Anion Gap 15 (12-20); Blood Urea Nitrogen 17 mg/dL (9-16); Calcium 8.7 mg/dL (8.4-10.2); Carbon Dioxide 25 mmol/L (22-29); Chloride 102 mmol/L (96-108); Estimated Glomerular Filt Rate > 60; Glucose Random 120 mg/dL (60-115); Potassium 3.9 mmol/L (3.3-5.1); Sodium 138 mmol/L (135-145)
[2022-12-21 06:56] LABS: Basophils Percent Auto 0.3 % (0-2); Eosinophils Absolute Auto 0.1 X10*3/uL (0.0-0.4); Hematocrit 40.9 % (42.0-52.0); Hemoglobin 13.3 g/dl (14.0-18.0); Lymphocytes Absolute Auto 2.2 X10*3/uL (1.2-4.9); Lymphocytes Percent Auto 21.5 % (20-40); Mean Corpuscular HGB Conc 32.5 g/dl (31.0-36.0); Mean Corpuscular Hemoglobin 30.4 pg (27.0-33.0); Mean Corpuscular Volume 93.6 fL (80.0-98.0); Mean Platelet Volume 10.3 fL (9.4-12.4); Monocytes Absolute Auto 1.3 X10*3/uL (0.1-1.2); Monocytes Percent Auto 12.2 % (2-11); Neutrophils Absolute Auto 6.7 x10*3/uL (2.0-8.3); Platelet Count 245 X10*3/uL (160-400); Red Blood Count 4.37 X10*6/uL (4.60-5.80); White Blood Count 10.4 X10*3/uL (4.8-10.8)
== END 2022-12-21 06:18 | disposition home or self-care (01) ==
LOC: HO.MMNH1L 06:17
PROVIDERS: Visit Provider Family Medicine
DX: R27.8 Other lack of coordination (principal); F32.9 Major depressive disorder, single episode, unspecified
CPT/HCPCS: 36415; 80048; 85025

== ENCOUNTER 2022-12-28 07:10 | Outpatient (REF) | payer MEDICARE, SELFPAY | END 2022-12-28 07:11 | disposition home or self-care (01) | LOC: HO.MMNH1L 07:10 | PROVIDERS: Visit Provider Family Medicine | DX: R27.8 Other lack of coordination (principal); F32.9 Major depressive disorder, single episode, unspecified | CPT/HCPCS: 36415; 80048; 85025 ==

== ENCOUNTER 2023-01-04 06:07 | Outpatient (REF) | payer MEDICARE, SELFPAY ==
[2023-01-04 05:47] LABS: MANUAL DIFF FLAG NO
[2023-01-04 06:05] LABS: Basophils Percent Auto 0.3 % (0-2); Eosinophils Absolute Auto 0.1 X10*3/uL (0.0-0.4); Eosinophils Percent Auto 1.4 % (0-4); Hematocrit 35.9 % (42.0-52.0); Hemoglobin 11.4 g/dl (14.0-18.0); Imm Gran Abs Auto 0.04 X10*3/uL (0.00-0.03); Imm Gran Pct Auto 0.5 % (0.0-0.4); Lymphocytes Absolute Auto 1.9 X10*3/uL (1.2-4.9); Lymphocytes Percent Auto 25.8 % (20-40); Mean Corpuscular HGB Conc 31.8 g/dl (31.0-36.0); Mean Corpuscular Hemoglobin 29.7 pg (27.0-33.0); Mean Corpuscular Volume 93.5 fL (80.0-98.0); Mean Platelet Volume 9.8 fL (9.4-12.4); Monocytes Absolute Auto 0.9 X10*3/uL (0.1-1.2); Monocytes Percent Auto 11.9 % (2-11); Neutrophils Absolute Auto 4.5 x10*3/uL (2.0-8.3); Neutrophils Percent Auto 60.1 % (45-73); Platelet Count 163 X10*3/uL (160-400); Red Blood Count 3.84 X10*6/uL (4.60-5.80); Red Cell Distribution Width 12.4 % (11.0-16.0); White Blood Count 7.4 X10*3/uL (4.8-10.8)
[2023-01-04 06:09] LABS: Anion Gap 15 (12-20); Blood Urea Nitrogen 14 mg/dL (9-16); Calcium 8.8 mg/dL (8.4-10.2); Carbon Dioxide 25 mmol/L (22-29); Chloride 99 mmol/L (96-108); Estimated Glomerular Filt Rate > 60; Glucose Random 85 mg/dL (60-115); Sodium 135 mmol/L (135-145)
== END 2023-01-04 06:08 | disposition home or self-care (01) ==
LOC: HO.MMNH1L 06:07
PROVIDERS: Visit Provider Family Medicine
DX: R27.8 Other lack of coordination (principal); F32.9 Major depressive disorder, single episode, unspecified
CPT/HCPCS: 36415; 80048; 85025

== ENCOUNTER 2023-01-11 06:11 | Outpatient (REF) | payer MEDICARE, SELFPAY ==
[2023-01-11 07:09] LABS: Anion Gap 15 (12-20); Blood Urea Nitrogen 11 mg/dL (9-16); Calcium 8.7 mg/dL (8.4-10.2); Carbon Dioxide 23 mmol/L (22-29); Chloride 103 mmol/L (96-108); Estimated Glomerular Filt Rate > 60; Glucose Random 61 mg/dL (60-115); Potassium 4.2 mmol/L (3.3-5.1); Sodium 137 mmol/L (135-145)
== END 2023-01-11 06:12 | disposition home or self-care (01) ==
LOC: HO.MMNH1L 06:11
PROVIDERS: Visit Provider Family Medicine
DX: R27.8 Other lack of coordination (principal); F32.9 Major depressive disorder, single episode, unspecified
CPT/HCPCS: 36415; 80048; 85025

== ENCOUNTER 2023-01-18 06:08 | Outpatient (REF) | payer MEDICARE, SELFPAY ==
[2023-01-18 06:05] LABS: MANUAL DIFF FLAG NO
[2023-01-18 06:40] LABS: Basophils Percent Auto 0.3 % (0-2); Eosinophils Absolute Auto 0.1 X10*3/uL (0.0-0.4); Eosinophils Percent Auto 1.6 % (0-4); Hematocrit 36.3 % (42.0-52.0); Hemoglobin 11.6 g/dl (14.0-18.0); Imm Gran Abs Auto 0.07 X10*3/uL (0.00-0.03); Imm Gran Pct Auto 0.8 % (0.0-0.4); Lymphocytes Absolute Auto 1.7 X10*3/uL (1.2-4.9); Lymphocytes Percent Auto 19.6 % (20-40); Mean Corpuscular Hemoglobin 29.7 pg (27.0-33.0); Mean Corpuscular Volume 93.1 fL (80.0-98.0); Mean Platelet Volume 9.5 fL (9.4-12.4); Monocytes Absolute Auto 1.1 X10*3/uL (0.1-1.2); Neutrophils Absolute Auto 5.6 x10*3/uL (2.0-8.3); Neutrophils Percent Auto 64.7 % (45-73); Platelet Count 165 X10*3/uL (160-400); Red Cell Distribution Width 13.5 % (11.0-16.0); White Blood Count 8.6 X10*3/uL (4.8-10.8)
[2023-01-18 06:58] LABS: Anion Gap 17 (12-20); Blood Urea Nitrogen 11 mg/dL (9-16); Carbon Dioxide 24 mmol/L (22-29); Chloride 104 mmol/L (96-108); Estimated Glomerular Filt Rate > 60; Glucose Random 79 mg/dL (60-115); Potassium 3.6 mmol/L (3.3-5.1); Sodium 141 mmol/L (135-145)
== END 2023-01-18 06:09 | disposition home or self-care (01) ==
LOC: HO.MMNH1L 06:08
PROVIDERS: Visit Provider Family Medicine
DX: R27.8 Other lack of coordination (principal); F32.9 Major depressive disorder, single episode, unspecified
CPT/HCPCS: 36415; 80048; 85025

== ENCOUNTER 2023-01-25 05:53 | Outpatient (REF) | payer MEDICARE, SELFPAY ==
[2023-01-25 05:53] LABS: MANUAL DIFF FLAG NO
[2023-01-25 06:16] LABS: Basophils Percent Auto 0.5 % (0-2); Eosinophils Absolute Auto 0.1 X10*3/uL (0.0-0.4); Eosinophils Percent Auto 1.6 % (0-4); Hematocrit 37.3 % (42.0-52.0); Hemoglobin 11.8 g/dl (14.0-18.0); Imm Gran Abs Auto 0.11 X10*3/uL (0.00-0.03); Imm Gran Pct Auto 1.4 % (0.0-0.4); Lymphocytes Absolute Auto 2.3 X10*3/uL (1.2-4.9); Lymphocytes Percent Auto 28.8 % (20-40); Mean Corpuscular HGB Conc 31.6 g/dl (31.0-36.0); Mean Corpuscular Hemoglobin 29.8 pg (27.0-33.0); Mean Corpuscular Volume 94.2 fL (80.0-98.0); Mean Platelet Volume 9.7 fL (9.4-12.4); Monocytes Absolute Auto 1.1 X10*3/uL (0.1-1.2); Monocytes Percent Auto 14.1 % (2-11); Neutrophils Absolute Auto 4.4 x10*3/uL (2.0-8.3); Neutrophils Percent Auto 53.6 % (45-73); Platelet Count 111 X10*3/uL (160-400); Red Blood Count 3.96 X10*6/uL (4.60-5.80); Red Cell Distribution Width 13.5 % (11.0-16.0); White Blood Count 8.1 X10*3/uL (4.8-10.8)
[2023-01-25 06:24] LABS: Anion Gap 16 (12-20); Blood Urea Nitrogen 11 mg/dL (9-16); Calcium 8.6 mg/dL (8.4-10.2); Carbon Dioxide 21 mmol/L (22-29); Chloride 106 mmol/L (96-108); Estimated Glomerular Filt Rate > 60; Glucose Random 85 mg/dL (60-115); Potassium 3.8 mmol/L (3.3-5.1); Sodium 139 mmol/L (135-145)
== END 2023-01-25 05:54 | disposition home or self-care (01) ==
LOC: HO.MMNH1L 05:53
PROVIDERS: Visit Provider Family Medicine
DX: R27.8 Other lack of coordination (principal); F32.9 Major depressive disorder, single episode, unspecified
CPT/HCPCS: 36415; 80048; 85025

== ENCOUNTER 2023-02-01 06:09 | Outpatient (REF) | payer MEDICARE, SELFPAY ==
[2023-02-01 06:05] LABS: MANUAL DIFF FLAG NO
[2023-02-01 06:42] LABS: Basophils Percent Auto 0.2 % (0-2); Eosinophils Absolute Auto 0.1 X10*3/uL (0.0-0.4); Eosinophils Percent Auto 1.4 % (0-4); Hematocrit 34.5 % (42.0-52.0); Hemoglobin 11.1 g/dl (14.0-18.0); Imm Gran Abs Auto 0.05 X10*3/uL (0.00-0.03); Imm Gran Pct Auto 0.6 % (0.0-0.4); Lymphocytes Absolute Auto 2.2 X10*3/uL (1.2-4.9); Mean Corpuscular HGB Conc 32.2 g/dl (31.0-36.0); Mean Corpuscular Hemoglobin 29.8 pg (27.0-33.0); Mean Corpuscular Volume 92.5 fL (80.0-98.0); Mean Platelet Volume 9.8 fL (9.4-12.4); Monocytes Absolute Auto 0.9 X10*3/uL (0.1-1.2); Monocytes Percent Auto 11.1 % (2-11); Neutrophils Absolute Auto 5.1 x10*3/uL (2.0-8.3); Neutrophils Percent Auto 60.7 % (45-73); Platelet Count 109 X10*3/uL (160-400); Red Blood Count 3.73 X10*6/uL (4.60-5.80); Red Cell Distribution Width 14.3 % (11.0-16.0); White Blood Count 8.4 X10*3/uL (4.8-10.8)
[2023-02-01 10:42] LABS: Anion Gap 10 (12-20); Blood Urea Nitrogen 9 mg/dL (9-16); Calcium 8.7 mg/dL (8.4-10.2); Carbon Dioxide 28 mmol/L (22-29); Chloride 107 mmol/L (96-108); Estimated Glomerular Filt Rate > 60; Glucose Random 88 mg/dL (60-115); Potassium 3.3 mmol/L (3.3-5.1); Sodium 142 mmol/L (135-145)
== END 2023-02-01 06:10 | disposition home or self-care (01) ==
LOC: HO.MMNH1L 06:09
PROVIDERS: Visit Provider Family Medicine
DX: F32.9 Major depressive disorder, single episode, unspecified (principal); R27.8 Other lack of coordination
CPT/HCPCS: 36415; 80048; 85025

== ENCOUNTER 2023-02-08 06:11 | Outpatient (REF) | payer MEDICARE, SELFPAY ==
[2023-02-08 05:53] LABS: MANUAL DIFF FLAG NO
[2023-02-08 06:54] LABS: Anion Gap 12 (12-20); Blood Urea Nitrogen 11 mg/dL (9-16); Calcium 8.7 mg/dL (8.4-10.2); Carbon Dioxide 27 mmol/L (22-29); Chloride 107 mmol/L (96-108); Estimated Glomerular Filt Rate > 60; Glucose Random 132 mg/dL (60-115); Potassium 3.1 mmol/L (3.3-5.1); Sodium 143 mmol/L (135-145)
[2023-02-08 07:03] LABS: Basophils Percent Auto 0.5 % (0-2); Eosinophils Absolute Auto 0.1 X10*3/uL (0.0-0.4); Eosinophils Percent Auto 1.5 % (0-4); Hematocrit 34.9 % (42.0-52.0); Hemoglobin 10.9 g/dl (14.0-18.0); Imm Gran Abs Auto 0.06 X10*3/uL (0.00-0.03); Imm Gran Pct Auto 0.9 % (0.0-0.4); Lymphocytes Absolute Auto 1.8 X10*3/uL (1.2-4.9); Lymphocytes Percent Auto 26.9 % (20-40); Mean Corpuscular HGB Conc 31.2 g/dl (31.0-36.0); Mean Corpuscular Hemoglobin 29.4 pg (27.0-33.0); Mean Corpuscular Volume 94.1 fL (80.0-98.0); Mean Platelet Volume 9.8 fL (9.4-12.4); Monocytes Absolute Auto 0.9 X10*3/uL (0.1-1.2); Monocytes Percent Auto 13.9 % (2-11); Neutrophils Absolute Auto 3.7 x10*3/uL (2.0-8.3); Neutrophils Percent Auto 56.3 % (45-73); Platelet Count 113 X10*3/uL (160-400); Red Blood Count 3.71 X10*6/uL (4.60-5.80); Red Cell Distribution Width 14.6 % (11.0-16.0); White Blood Count 6.6 X10*3/uL (4.8-10.8)
== END 2023-02-08 06:12 | disposition home or self-care (01) ==
LOC: HO.MMNH1L 06:11
PROVIDERS: Visit Provider Family Medicine
DX: R27.8 Other lack of coordination (principal); F32.9 Major depressive disorder, single episode, unspecified
CPT/HCPCS: 36415; 80048; 85025

== ENCOUNTER 2023-02-15 06:08 | Outpatient (REF) | payer MEDICARE, SELFPAY ==
[2023-02-15 06:00] LABS: MANUAL DIFF FLAG NO
[2023-02-15 06:51] LABS: Basophils Percent Auto 0.4 % (0-2); Eosinophils Absolute Auto 0.1 X10*3/uL (0.0-0.4); Eosinophils Percent Auto 1.2 % (0-4); Hematocrit 34.8 % (42.0-52.0); Imm Gran Abs Auto 0.05 X10*3/uL (0.00-0.03); Imm Gran Pct Auto 0.7 % (0.0-0.4); Lymphocytes Absolute Auto 1.7 X10*3/uL (1.2-4.9); Lymphocytes Percent Auto 23.1 % (20-40); Mean Corpuscular HGB Conc 31.6 g/dl (31.0-36.0); Mean Corpuscular Hemoglobin 29.7 pg (27.0-33.0); Mean Corpuscular Volume 94.1 fL (80.0-98.0); Mean Platelet Volume 9.5 fL (9.4-12.4); Monocytes Absolute Auto 1.1 X10*3/uL (0.1-1.2); Monocytes Percent Auto 14.7 % (2-11); Neutrophils Absolute Auto 4.5 x10*3/uL (2.0-8.3); Neutrophils Percent Auto 59.9 % (45-73); Platelet Count 149 X10*3/uL (160-400); Red Cell Distribution Width 14.7 % (11.0-16.0); White Blood Count 7.5 X10*3/uL (4.8-10.8)
[2023-02-15 07:00] LABS: Anion Gap 13 (12-20); Blood Urea Nitrogen 10 mg/dL (9-16); Calcium 8.8 mg/dL (8.4-10.2); Carbon Dioxide 27 mmol/L (22-29); Chloride 105 mmol/L (96-108); Estimated Glomerular Filt Rate > 60; Glucose Random 72 mg/dL (60-115); Potassium 3.2 mmol/L (3.3-5.1); Sodium 142 mmol/L (135-145)
== END 2023-02-15 06:09 | disposition home or self-care (01) ==
LOC: HO.MMNH1L 06:08
PROVIDERS: Visit Provider Family Medicine
DX: R27.8 Other lack of coordination (principal); F32.9 Major depressive disorder, single episode, unspecified
CPT/HCPCS: 36415; 80048; 85025

== ENCOUNTER 2023-02-23 06:42 | Outpatient (REF) | payer MEDICARE, SELFPAY ==
[2023-02-23 06:31] LABS: MANUAL DIFF FLAG NO
[2023-02-23 07:22] LABS: Basophils Percent Auto 0.5 % (0-2); Eosinophils Absolute Auto 0.1 X10*3/uL (0.0-0.4); Eosinophils Percent Auto 1.8 % (0-4); Hematocrit 34.1 % (42.0-52.0); Hemoglobin 10.9 g/dl (14.0-18.0); Imm Gran Abs Auto 0.06 X10*3/uL (0.00-0.03); Imm Gran Pct Auto 0.8 % (0.0-0.4); Lymphocytes Percent Auto 26.8 % (20-40); Mean Corpuscular Hemoglobin 29.8 pg (27.0-33.0); Mean Corpuscular Volume 93.2 fL (80.0-98.0); Mean Platelet Volume 9.7 fL (9.4-12.4); Monocytes Absolute Auto 0.9 X10*3/uL (0.1-1.2); Monocytes Percent Auto 12.1 % (2-11); Neutrophils Absolute Auto 4.3 x10*3/uL (2.0-8.3); Platelet Count 139 X10*3/uL (160-400); Red Blood Count 3.66 X10*6/uL (4.60-5.80); Red Cell Distribution Width 14.8 % (11.0-16.0); White Blood Count 7.3 X10*3/uL (4.8-10.8)
[2023-02-23 07:47] LABS: Anion Gap 12 (12-20); Blood Urea Nitrogen 9 mg/dL (9-16); Calcium 8.8 mg/dL (8.4-10.2); Carbon Dioxide 29 mmol/L (22-29); Chloride 103 mmol/L (96-108); Estimated Glomerular Filt Rate > 60; Glucose Random 80 mg/dL (60-115); Potassium 2.7 mmol/L (3.3-5.1); Sodium 141 mmol/L (135-145)
== END 2023-02-23 06:43 | disposition home or self-care (01) ==
LOC: HO.MMNH1L 06:42
PROVIDERS: Visit Provider Family Medicine
DX: R27.8 Other lack of coordination (principal); F32.9 Major depressive disorder, single episode, unspecified
CPT/HCPCS: 36415; 80048; 85025

== ENCOUNTER 2023-03-01 05:54 | Outpatient (REF) | payer MEDICARE, SELFPAY ==
[2023-03-01 05:51] LABS: MANUAL DIFF FLAG NO
[2023-03-01 06:35] LABS: Basophils Percent Auto 0.5 % (0-2); Eosinophils Absolute Auto 0.2 X10*3/uL (0.0-0.4); Eosinophils Percent Auto 2.1 % (0-4); Hematocrit 39.4 % (42.0-52.0); Hemoglobin 12.4 g/dl (14.0-18.0); Imm Gran Abs Auto 0.04 X10*3/uL (0.00-0.03); Imm Gran Pct Auto 0.5 % (0.0-0.4); Lymphocytes Absolute Auto 1.8 X10*3/uL (1.2-4.9); Lymphocytes Percent Auto 23.9 % (20-40); Mean Corpuscular HGB Conc 31.5 g/dl (31.0-36.0); Mean Corpuscular Volume 95.2 fL (80.0-98.0); Mean Platelet Volume 9.9 fL (9.4-12.4); Monocytes Percent Auto 12.5 % (2-11); Neutrophils Absolute Auto 4.6 x10*3/uL (2.0-8.3); Neutrophils Percent Auto 60.5 % (45-73); Platelet Count 117 X10*3/uL (160-400); Red Blood Count 4.14 X10*6/uL (4.60-5.80); Red Cell Distribution Width 14.7 % (11.0-16.0); White Blood Count 7.7 X10*3/uL (4.8-10.8)
[2023-03-01 07:01] LABS: Anion Gap 16 (12-20); Blood Urea Nitrogen 8 mg/dL (9-16); Calcium 8.9 mg/dL (8.4-10.2); Carbon Dioxide 22 mmol/L (22-29); Chloride 105 mmol/L (96-108); Estimated Glomerular Filt Rate > 60; Potassium 3.9 mmol/L (3.3-5.1); Sodium 139 mmol/L (135-145)
[2023-03-01 07:28] LABS: Glucose Random 58 mg/dL (60-115)
== END 2023-03-01 05:55 | disposition home or self-care (01) ==
LOC: HO.MMNH1L 05:54
PROVIDERS: Visit Provider Family Medicine
DX: R27.8 Other lack of coordination (principal); F32.9 Major depressive disorder, single episode, unspecified
CPT/HCPCS: 36415; 80048; 85025

== ENCOUNTER 2023-03-08 07:13 | Outpatient (REF) | payer MEDICARE, SELFPAY ==
[2023-03-08 06:08] LABS: MANUAL DIFF FLAG NO
[2023-03-08 06:43] LABS: Basophils Percent Auto 0.4 % (0-2); Eosinophils Absolute Auto 0.1 X10*3/uL (0.0-0.4); Eosinophils Percent Auto 1.4 % (0-4); Hematocrit 38.1 % (42.0-52.0); Hemoglobin 12.1 g/dl (14.0-18.0); Imm Gran Abs Auto 0.03 X10*3/uL (0.00-0.03); Imm Gran Pct Auto 0.4 % (0.0-0.4); Lymphocytes Percent Auto 28.3 % (20-40); Mean Corpuscular HGB Conc 31.8 g/dl (31.0-36.0); Mean Corpuscular Hemoglobin 29.7 pg (27.0-33.0); Mean Corpuscular Volume 93.4 fL (80.0-98.0); Mean Platelet Volume 10.3 fL (9.4-12.4); Monocytes Absolute Auto 0.9 X10*3/uL (0.1-1.2); Monocytes Percent Auto 12.3 % (2-11); Neutrophils Percent Auto 57.2 % (45-73); Red Blood Count 4.08 X10*6/uL (4.60-5.80); Red Cell Distribution Width 14.9 % (11.0-16.0); White Blood Count 7.1 X10*3/uL (4.8-10.8)
[2023-03-08 06:55] LABS: Platelet Count 97 X10*3/uL (160-400)
[2023-03-08 07:09] LABS: Anion Gap 15 (12-20); Blood Urea Nitrogen 10 mg/dL (9-16); Carbon Dioxide 27 mmol/L (22-29); Chloride 102 mmol/L (96-108); Estimated Glomerular Filt Rate > 60; Glucose Random 80 mg/dL (60-115); Potassium 3.3 mmol/L (3.3-5.1); Sodium 141 mmol/L (135-145)
== END 2023-03-08 07:14 | disposition home or self-care (01) ==
LOC: HO.MMNH1L 07:13
PROVIDERS: Visit Provider Family Medicine
DX: R27.8 Other lack of coordination (principal); F32.9 Major depressive disorder, single episode, unspecified
CPT/HCPCS: 36415; 80048; 85025

== ENCOUNTER 2023-03-15 06:12 | Outpatient (REF) | payer MEDICARE, SELFPAY ==
[2023-03-15 05:56] LABS: MANUAL DIFF FLAG NO
[2023-03-15 07:02] LABS: Basophils Percent Auto 0.3 % (0-2); Eosinophils Absolute Auto 0.1 X10*3/uL (0.0-0.4); Eosinophils Percent Auto 1.8 % (0-4); Hematocrit 37.9 % (42.0-52.0); Hemoglobin 12.2 g/dl (14.0-18.0); Imm Gran Abs Auto 0.03 X10*3/uL (0.00-0.03); Imm Gran Pct Auto 0.4 % (0.0-0.4); Lymphocytes Absolute Auto 1.9 X10*3/uL (1.2-4.9); Lymphocytes Percent Auto 23.6 % (20-40); Mean Corpuscular HGB Conc 32.2 g/dl (31.0-36.0); Mean Corpuscular Hemoglobin 30.1 pg (27.0-33.0); Mean Corpuscular Volume 93.6 fL (80.0-98.0); Mean Platelet Volume 10.1 fL (9.4-12.4); Monocytes Absolute Auto 0.9 X10*3/uL (0.1-1.2); Monocytes Percent Auto 11.7 % (2-11); Neutrophils Percent Auto 62.2 % (45-73); Platelet Count 94 X10*3/uL (160-400); Red Blood Count 4.05 X10*6/uL (4.60-5.80); Red Cell Distribution Width 15.2 % (11.0-16.0)
== END 2023-03-15 06:13 | disposition home or self-care (01) ==
LOC: HO.MMNH1L 06:12
PROVIDERS: Visit Provider Family Medicine
DX: R27.8 Other lack of coordination (principal); F32.9 Major depressive disorder, single episode, unspecified
CPT/HCPCS: 36415; 80048; 85025

== ENCOUNTER 2023-03-22 06:21 | Outpatient (REF) | payer MEDICARE, SELFPAY ==
[2023-03-22 06:13] LABS: MANUAL DIFF FLAG NO
[2023-03-22 07:07] LABS: Basophils Percent Auto 0.3 % (0-2); Eosinophils Absolute Auto 0.1 X10*3/uL (0.0-0.4); Eosinophils Percent Auto 0.5 % (0-4); Hemoglobin 10.8 g/dl (14.0-18.0); Imm Gran Abs Auto 0.11 X10*3/uL (0.00-0.03); Imm Gran Pct Auto 1.1 % (0.0-0.4); Lymphocytes Absolute Auto 1.5 X10*3/uL (1.2-4.9); Lymphocytes Percent Auto 14.6 % (20-40); Mean Corpuscular HGB Conc 31.8 g/dl (31.0-36.0); Mean Corpuscular Volume 94.4 fL (80.0-98.0); Mean Platelet Volume 9.9 fL (9.4-12.4); Monocytes Absolute Auto 1.3 X10*3/uL (0.1-1.2); Monocytes Percent Auto 13.1 % (2-11); Neutrophils Absolute Auto 7.1 x10*3/uL (2.0-8.3); Neutrophils Percent Auto 70.4 % (45-73); Platelet Count 112 X10*3/uL (160-400); Red Cell Distribution Width 15.8 % (11.0-16.0)
[2023-03-22 07:29] LABS: Anion Gap 15 (12-20); Blood Urea Nitrogen 31 mg/dL (9-16); Calcium 8.8 mg/dL (8.4-10.2); Carbon Dioxide 30 mmol/L (22-29); Chloride 103 mmol/L (96-108); Estimated Glomerular Filt Rate > 60; Glucose Random 104 mg/dL (60-115); Sodium 145 mmol/L (135-145)
== END 2023-03-22 06:22 | disposition home or self-care (01) ==
LOC: HO.MMNH1L 06:21
PROVIDERS: Visit Provider Family Medicine
DX: Z13.89 Encounter for screening for other disorder (principal)
CPT/HCPCS: 36415; 80048; 85025

== ENCOUNTER 2023-03-24 18:38 | Inpatient (IN) | payer MEDICARE, SELFPAY ==
--- NOTE | ~2023-03-24 | XR_ITS ---
EXAMINATION: XR CHEST CLINICAL INFORMATION: Shortness of breath. Concern for aspiration. COMPARISON: 03/24/2023. TECHNIQUE: Frontal view of the chest was obtained. FINDINGS: The cardiomediastinal silhouette is within normal limits and stable. There is no focal lung consolidation or pleural effusion. The bony structures and soft tissues are unremarkable. XR/XR chest 1V IMPRESSION: No active cardiopulmonary disease.
--- NOTE | ~2023-03-24 | US_ITS ---
EXAMINATION: US VENOUS WITH DOPPLER UPPER EXTREMITY, RIGHT CLINICAL INFORMATION: Swelling, rule out DVT. PICC line. COMPARISON: None available. TECHNIQUE: Ultrasound of the upper extremity is performed using compression sonography and color and pulse Doppler flow with assessment of augmentation of flow. There is also imaging and Doppler assessment of the jugular and subclavian veins. Spectral analysis with color-flow imaging is performed. FINDINGS: Exam is limited by the PICC line and its bandage. Respiratory variation, normal compression, and augmented flow are noted throughout the upper extremity including the axillary, brachial, cubital, and radial and ulnar veins. There is normal flow in the internal jugular and subclavian veins. The right basilic vein is noncompressible below the PICC line which may indicate thrombophlebitis. US/US venous duplex UE RT IMPRESSION: No DVT demonstrated in the right upper extremity. The right facility vein is noncompressible below the PICC line which may indicate thrombophlebitis.
--- NOTE | ~2023-03-24 | XR_ITS ---
EXAMINATION: XR CHEST CLINICAL INFORMATION: Question aspiration COMPARISON: 04/10/2023 TECHNIQUE: Frontal view of the chest was obtained. FINDINGS: Lung volumes are symmetric. There is improved left basilar aeration compared to prior. No new focal consolidation is seen. No evidence of pneumothorax, pleural effusion, or pulmonary edema. Cardiac size is within normal limits. Calcification is present at the aortic arch. Degenerative changes are noted in the spine. XR/XR chest 1V IMPRESSION: Improved left basilar aeration compared to prior. No new consolidation.
--- NOTE | ~2023-03-24 | XR_ITS ---
EXAMINATION: XR CHEST CLINICAL INFORMATION: Fluid overload COMPARISON: 04/12/2023 TECHNIQUE: Frontal view of the chest was obtained. FINDINGS: No evidence of failure on this study. The cardiac silhouette is felt to be comparable. The lung hu are felt to be grossly clear. Tortuous versus ectatic arch and descending aorta. The hilar regions are comparable. Density in the right upper lung is likely associated with degeneration of the first costochondral cartilage. XR/XR chest 1V IMPRESSION: No acute finding. No evidence for failure. No effusion.
--- NOTE | ~2023-03-24 | XR_ITS ---
EXAMINATION: XR CHEST CLINICAL INFORMATION: Hypoxia and fever. COMPARISON: Chest x-ray dated 04/09/2023. TECHNIQUE: AP portable upright view of the chest was obtained. FINDINGS: EKG leads overlie the chest. The cardiomediastinal silhouette is within normal limits in size. Lungs bilaterally are symmetrically expanded. There is some minimal linear reticular opacities seen in the left lung base, similar to the previous study, consistent with mild subsegmental atelectasis. No focal consolidation, effusion or pneumothorax is seen. There is mild convex left thoracic scoliosis with multilevel mild to moderate vertebral spurring in the mid and lower thoracic spine. Osteopenia is suggested. Mild degenerative changes in the shoulders bilaterally. XR/XR chest 1V IMPRESSION: 1. Mild left basilar subsegmental atelectasis. No focal pneumonia. 2. Mild convex left thoracic scoliosis with multilevel mild to moderate vertebral spurring.
--- NOTE | ~2023-03-24 | XR_ITS ---
EXAMINATION: XR CHEST CLINICAL INFORMATION: Aspiration event. COMPARISON: Chest radiograph dated 07/11/2022. TECHNIQUE: Frontal view of the chest was obtained. FINDINGS: No significant abnormality is noted involving the heart, lungs, mediastinum, bony thorax or soft tissues. XR/XR chest 1V IMPRESSION: Unremarkable examination.
--- NOTE | 2023-03-24 18:41 | ECG_ITS ---
Test Reason : Altered Mental Status Blood Pressure : / mmHG Vent. Rate : 098 BPM Atrial Rate : 098 BPM P-R Int : 110 ms QRS Dur : 088 ms QT Int : 328 ms P-R-T Axes : -02 -47 -31 degrees QTc Int : 418 ms Sinus rhythm with short [place] Left axis deviation ST & T wave abnormality, consider anterior ischemia Abnormal ECG When compared with ECG of 30-NOV-2022 10:07, Incomplete right bundle branch block is no longer Present ST now depressed in Anterior leads Nonspecific T wave abnormality, worse in Inferior leads Nonspecific T wave abnormality now evident in Anterolateral leads Referred By: Generic ED Physician Electronically Signed By:NOEL LANDRUM
[2023-03-24 18:45] VITALS: BP 96/60; PULSE 98; O2SAT 95
[2023-03-24 18:49] VITALS: BP 106/66; PULSE 95; RESP 22; TEMP 37.1; O2SAT 95; BMI 22.6
--- NOTE | 2023-03-24 19:16 | ED.SOB ---
HPI - SOB/Dyspnea General Chief Complaint: Upper Respiratory Symptoms Stated Complaint: difficulity breathing Time Seen by Provider: 03/24/23 19:03 Source: patient Mode of arrival: EMS History of Present Illness HPI Narrative: 72 yo male with PMH of seizures, depression, cognitive dysfunction, dysphagia and aspiration events here with c/o possible aspiration event earlier today. He choked on food again at dinner. EMS found him 87% on 4L NC he does not normally wear O2. He was placed on NRB with good effect. He cannot tell me much he has a junky coarse cough. EMS was told by staff that this is his baseline. MD elicited complaint: shortness of breath and cough Pertinent past history: pneumonia Timing: progressively worsening Severity: moderate Exacerbating factors: coughing Relieving factors: oxygen and rest Known history of: aspiration pneumonia Associated symptoms: cough Treatment prior to arrival: oxygen Related Data Home Medications Medication Instructions Recorded Confirmed memantine 5 mg tablet 5 mg PO DAILY 12/04/20 12/01/22 mirtazapine 30 mg tablet 30 mg PO BEDTIME 12/04/20 12/01/22 hydroxyzine HCl 25 mg tablet 25 mg PO BEDTIME PRN Itching 03/11/22 12/01/22 levothyroxine 25 mcg capsule 25 mcg PO DAILY 03/11/22 12/01/22 sertraline 25 mg tablet 25 mg PO DAILY 03/11/22 12/01/22 simvastatin 10 mg tablet 10 mg PO DAILY 03/11/22 12/01/22 Previous Rx's Medication Instructions Recorded atenolol 25 mg tablet 25 mg PO DAILY 30 days #30 tabs 06/04/20 divalproex 500 mg tablet,extended 500 mg PO BID 30 days #60 tabs 06/04/20 release 24 hr naproxen 500 mg tablet 500 mg PO BID PRN pain 10 days #20 03/09/22 tabs Allergies Allergy/AdvReac Type Severity Reaction Status Date / Time No Known Allergies Allergy Verified 09/11/22 09:08 [No Known Allergies*] Review of Systems Review of Systems: ROS unable to be obtained due to cognitive impairment [facility] Past Medical History Attestation statement: The following information was validated with the patient. Medical History Cognitive and neurobehavioral dysfunction Seizures Atypical depressive disorder Surgical History History of amputation of finger of right hand Family History Family History Mother Heart disease Father Hx of colostomy Social History Social History Household Members: Family Housing: House Are you a primary critical care unit nurse to a significant other at home: No Do you presently have visiting nurse or other home services: No Alcohol intake: never Patient Tobacco Use Status: Former Tobacco user Quit Date: 1989 Smoked: 30 +/- Second Hand Smoke Exposure: No Advance Directives: Yes Advance Directives on File: Yes Advance Directives Date on File: 08/19/20 service: No Current occupational status: retired Sexual orientation: Straight/Heterosexual Physical Exam Vital Signs: Vital Signs: Last Vital Signs Temp 101.6 F H 03/24/23 21:20 Pulse 105 H 03/24/23 21:20 Resp 20 03/24/23 21:20 BP 126/86 03/24/23 21:20 Pulse Ox 97 03/24/23 21:20 O2 Del Method Nasal Cannula 03/24/23 21:20 O2 Flow Rate 6 03/24/23 21:20 Oxygen Flow Rate 8 03/24/23 18:49 BMI result Body Mass Index 22.6 Appearance: Alert. not answering questions but confused. Mild acute distress. Eyes: Pupils equal, round and reactive to light. ENT: Pharynx dried food material left lower part of mouth Neck: Normal inspection. Neck supple. CVS: Normal heart rate and rhythm. Pulses normal. Respiratory: No respiratory distress. Breath sounds diminished in both bases with coarse junky cough he has a hard time clearing cough titrated down to 6L NC Abdomen: Soft and non-tender. on grimace Skin: Skin warm and dry. pale skin color. Normal skin turgor. Extremities: No lower extremity edema. Neuro: Oriented X 3. No motor deficit. No sensory deficit. Course Course Course Narrative: EKG could be due to hypoxia trop is flat and he has no reports of pain COVID + he has had 3 COVID vaccines Medications Administered Discontinued Medications Generic Name Dose Route Start Last Admin Trade Name Freq PRN Reason Stop Dose Admin Dexamethasone Sodium Phosphate 6 mg 03/24/23 20:54 03/24/23 21:06 Dexamethasone Sod Phosphate 4 Mg/Ml Vial IVPUSH 03/24/23 20:55 6 mg ONCE ONE Administration Sodium Chloride 1,000 mls @ 999 mls/hr 03/24/23 19:15 03/24/23 21:37 Ns IVCONT 03/24/23 20:15 Infused .Q1H1M HASMUKH Infusion Piperacillin Sod/Tazobactam 50 mls @ 100 mls/hr 03/24/23 19:30 03/24/23 21:06 Sod 3.375 gm/ Sodium Chloride IV 03/24/23 19:59 Infused ONCE ONE Infusion Medical Decision Making Medical Decision Making MDM Narrative: 72 yo male with PMH of seizures, depression, cognitive dysfunction, dysphagia and aspiration events here with c/o hypoxia and need for O2 after 2 possible aspiration events at this time will need basic labs, CXR, cultures, lactic acid, COVID swab and empiric zosyn. At this time titrating down to 6L NC. Hypoxia seems related to infectious event and aspiration so VTE seems less likely. Differential Diagnosis Differential Diagnoses: The differential diagnosis associated with the presentation includes aspiration pneumonia, dysphagia Admission/Observation Consideration of admission/observation: Escalation of care including admission/observation considered admit given hypoxia Consult Healthcare Provider Management of the patient was discussed with: Hospitalist (agrees to admit) Lab Data [facility] Lab Attestation statement: I reviewed the patient's lab results. 03/24/23 19:36 03/24/23 19:36 Labs: Lab Results 03/24/23 Range/Units 19:36 WBC 13.5 H (4.8-10.8) X10*3/uL RBC 3.83 L (4.60-5.80) X10*6/uL Hgb 11.5 L (14.0-18.0) g/dl Hct 36.1 L (42.0-52.0) % MCV 94.3 (80.0-98.0) fL MCH 30.0 (27.0-33.0) pg MCHC 31.9 (31.0-36.0) g/dl RDW 16.1 H (11.0-16.0) % Plt Count 124 L (160-400) X10*3/uL MPV 9.3 L (9.4-12.4) fL Immature Gran % (Auto) 1.2 H (0.0-0.4) % Neut % (Auto) 80.5 H (45-73) % Lymph % (Auto) 9.7 L (20-40) % [place] % (Auto) 8.1 (2-11) % Eos % (Auto) 0.1 (0-4) % Baso % (Auto) 0.4 (0-2) % Lymph # (Auto) 1.3 (1.2-4.9) X10*3/uL [place] # (Auto) 1.1 (0.1-1.2) X10*3/uL Eos # (Auto) 0.0 (0.0-0.4) X10*3/uL Baso # (Auto) 0.1 (0.0-0.2) X10*3/uL Abs Immat Gran (auto) 0.16 H (0.00-0.03) X10*3/uL Absolute Neuts (auto) 10.9 H (2.0-8.3) x10*3/uL Absolute Nucleated RBC 0.150 H (0.0-0.012) X10*3/uL Nucleated RBC % (auto) 1.1 H (0.0-0.2) /100WBC PT 15.6 H (11.1-13.3) SEC INR 1.3 H (0.9-1.1) Sodium 148 H (135-145) mmol/L Potassium 3.3 (3.3-5.1) mmol/L Chloride 107 (96-108) mmol/L Carbon Dioxide 28 (22-29) mmol/L Anion Gap 16 (12-20) BUN 26 H (9-16) mg/dL Creatinine 0.81 (0.5-1.4) mg/dL Estim Creat Clear Calc 83.3 Estimated GFR > 60 Random Glucose 249 H (60-115) mg/dL Lactic Acid 2.0 (0.5-2.0) mmol/L Calcium 8.9 (8.4-10.2) mg/dL Magnesium 2.7 H (1.6-2.6) mg/dL Total Bilirubin 0.4 (0.0-1.0) mg/dL Direct Bilirubin 0.2 (0.0-0.5) mg/dL AST 35 (5-37) U/L ALT 11 (0-40) U/L Alkaline Phosphatase 48 (39-117) U/L Troponin I High Sens < 2.7 (<3.5-35.0) ng/L B-Natriuretic Peptide 106 H (<100) pg/mL Total Protein 7.1 (6.5-8.0) g/dL Albumin 3.0 L (3.5-5.0) g/dL Lipase 9 (8-78) U/L COVID-19 (GUNNER) Positive A (Negative) COVID-19 Clin Com See Note Independent Interpretation I performed an independent interpretation of an: EKG and Plain X-Ray (no obvious consolidation now) Interpretation: Rate: 98 Rhythm: NSR [place]: Normal P waves. Normal RAINA. Normal QRS complex. ST T wave : slight ST depressions anterior and lateral leads, no MERA artifact noted qTC: normal prior studies: no acute ischemia The study has been interpreted contemporaneously by me. . Radiology Impression Discussion of test interpretation with radiology: I have reviewed the radiologist's reading. Independent Historian Clinical information obtained from an independent historian. History obtained from or confirmed by: EMS External Record Review External record reviewed: Inpatient record and Outpatient record Critical Care Time Critical Care Time Critical Care Time: Yes Total Critical Care Time: 31 Attestation: correction of hypoxia, review of records, admission I attest to this time spent taking care of the patient Discharge Plan Discharge Clinical Impression: COVID-19, Hypoxia Aspiration into lower respiratory tract Qualifiers: Encounter type: initial encounter Qualified Code(s): T17.800A - Unspecified foreign body in other parts of respiratory tract causing asphyxiation, initial encounter Patient Disposition: Admitted As Inpatient
[2023-03-24 19:48] LABS: MANUAL DIFF FLAG NO
[2023-03-24 19:50] LABS: Basophils Absolute Auto 0.1 X10*3/uL (0.0-0.2); Basophils Percent Auto 0.4 % (0-2); Eosinophils Percent Auto 0.1 % (0-4); Hematocrit 36.1 % (42.0-52.0); Hemoglobin 11.5 g/dl (14.0-18.0); Imm Gran Abs Auto 0.16 X10*3/uL (0.00-0.03); Imm Gran Pct Auto 1.2 % (0.0-0.4); Lymphocytes Absolute Auto 1.3 X10*3/uL (1.2-4.9); Lymphocytes Percent Auto 9.7 % (20-40); Mean Corpuscular HGB Conc 31.9 g/dl (31.0-36.0); Mean Corpuscular Volume 94.3 fL (80.0-98.0); Mean Platelet Volume 9.3 fL (9.4-12.4); Monocytes Absolute Auto 1.1 X10*3/uL (0.1-1.2); Monocytes Percent Auto 8.1 % (2-11); Neutrophils Absolute Auto 10.9 x10*3/uL (2.0-8.3); Neutrophils Percent Auto 80.5 % (45-73); Platelet Count 124 X10*3/uL (160-400); Red Blood Count 3.83 X10*6/uL (4.60-5.80); Red Cell Distribution Width 16.1 % (11.0-16.0); White Blood Count 13.5 X10*3/uL (4.8-10.8)
[2023-03-24 19:54] LABS: NRBC Pct Auto 1.1 /100WBC (0.0-0.2)
[2023-03-24 19:57] LABS: INTERNATIONAL NORM RATIO 1.3 (0.9-1.1); Prothrombin Time 15.6 SEC (11.1-13.3)
[2023-03-24 20:00] VITALS: BP 111/72; PULSE 94; RESP 18; TEMP 37.3; O2SAT 97
[2023-03-24] MEDS: 0.9 % Sodium Chloride 1,000 ML 999 ML IVCONT (20:04)
[2023-03-24] MEDS: Piperacillin Sodium/Tazobactam 3.375 GM in 0.9 % Sodium Chloride 50 ML IV (20:05)
[2023-03-24 20:07] LABS: Alanine Aminotransferase 11 U/L (0-40); Alkaline Phosphatase 48 U/L (39-117); Anion Gap 16 (12-20); Aspartate Amino Transferase 35 U/L (5-37); Bilirubin Direct 0.2 mg/dL (0.0-0.5); Bilirubin Total 0.4 mg/dL (0.0-1.0); Blood Urea Nitrogen 26 mg/dL (9-16); Calcium 8.9 mg/dL (8.4-10.2); Carbon Dioxide 28 mmol/L (22-29); Chloride 107 mmol/L (96-108); Creatinine Clr Calc Pharmacy 83.3; Estimated Glomerular Filt Rate > 60; Glucose Random 249 mg/dL (60-115); Lipase 9 U/L (8-78); Magnesium 2.7 mg/dL (1.6-2.6); Potassium 3.3 mmol/L (3.3-5.1); Sodium 148 mmol/L (135-145); Total Protein 7.1 g/dL (6.5-8.0)
[2023-03-24 20:13] LABS: Troponin-I High Sensitivity < 2.7 ng/L (<3.5-35.0)
[2023-03-24 20:49] LABS: COVID-19 Test Positive (Negative); IDNOW Serial# BCCEAD1C
[2023-03-24] MEDS: dexAMETHasone sod phosphate 4 MG/ML VIAL 6 MG IVPUSH (21:06)
[2023-03-24 21:11] LABS: B Type Natriuretic Peptide 106 pg/mL (<100)
[2023-03-24 21:20] VITALS: BP 126/86; PULSE 105; RESP 20; TEMP 38.7; O2SAT 97
--- NOTE | 2023-03-24 21:22 | MHC.EDTECH ---
this pct assumed care of patient at 1930 ,vitals sign taken ekg done and was read by provider ,covid swab done and was sent to lab ,all extra linen remove from underneath patient bottom ,also patient was incontinent of urine ,care given ,RN Page is aware of Patient high temp ,Pt belonging list done ,pt has no belonging here ,Pt was reposition with pillows off his bottom ,pt has no apartent distress at this time will continue to monitor .
--- NOTE | 2023-03-24 21:59 | PC.NURSE ---
this rn assumed care of pt @ 2029. pt pending admission. covid precautions in place. equipment scheduler made this rn aware of 101.6 rectal temp. equipment scheduler and this rn made dr jones aware of rectal temp of 101.6. no new orders at this time
[2023-03-24] MEDS: Acetaminophen Supp 650 MG SUPP.RECT PR (22:28)
[2023-03-24 22:33] VITALS: BP 130/75; PULSE 98; RESP 23; TEMP 38.9; O2SAT 94
--- NOTE | 2023-03-24 22:34 | PC.NURSE ---
pt medicated according to mae with supp. tylenol. intermediate manager assisted this rn in boosting pt and repositioning with pillows to R side
--- NOTE | 2023-03-24 22:35 | MHC.EDTECH ---
22:00 rounding done, PT resting quietly in no apparent distress, vitals taken, RN Deb aware of high temp and RR, PT is clean, dry and repositioned.
--- NOTE | 2023-03-24 22:48 | PHA.MEDREC ---
Pharmacy Consult ? Medication Reconciliation Pharmacy has completed the medication reconciliation. Received list from phyllis sorenson. Katrina Rascon,JaspreetD
--- NOTE | 2023-03-24 23:28 | PM.IMHP ---
History of Present Illness Date of Service: 03/24/23 Chief Complaint: Change in mental status, chocking 72 year old male with history of cognitive and neurobehavior dysfunction, seizure desorder brought to ED from nursing for evaluation of change in mental status and a chocking episode associated with hypoxa and fever. He has a temp of 102, WBC 13.5, O2 95 on NRB. +Covid, CXR unremarkable. Given Zosyn for aspiration PNA, decadron for covid. He is not offering much history Review of Systems Review of Systems: Yes Unobtainable due to mental status PMFSH Medical History Cognitive and neurobehavioral dysfunction Seizures Atypical depressive disorder Family History Mother Heart disease Father Hx of colostomy Surgical History History of amputation of finger of right hand Social History Household Members: Family Housing: House Are you a primary manager career to a significant other at home: No Do you presently have visiting nurse or other home services: No Alcohol intake: never Patient Tobacco Use Status: Former Tobacco user Quit Date: 1989 Smoked: 30 +/- Second Hand Smoke Exposure: No Advance Directives: Yes Advance Directives on File: Yes Advance Directives Date on File: 08/19/20 service: No Current occupational status: retired Sexual orientation: Straight/Heterosexual Meds Allergies Allergy/AdvReac Type Severity Reaction Status Date / Time No Known Allergies Allergy Verified 09/11/22 09:08 [No Known Allergies*] Active Medications: Current Medications Acetaminophen (Acetaminophen Supp 650 Mg Supp.Rect) 650 mg CA Q6H PRN PRN Reason: Fever Last Admin: 03/24/23 22:28 Dose: 650 mg Home Medications Medication Instructions Recorded Confirmed Last Taken Type memantine 5 mg tablet 5 mg PO DAILY 12/04/20 03/24/23 12/04/20 History mirtazapine 30 mg tablet 30 mg PO BEDTIME 12/04/20 03/24/23 12/03/20 History hydroxyzine HCl 25 mg tablet 25 mg PO BEDTIME PRN Itching 03/11/22 03/24/23 Unknown History levothyroxine 25 mcg capsule 25 mcg PO DAILY 03/11/22 03/24/23 Unknown History sertraline 25 mg tablet 25 mg PO DAILY 03/11/22 03/24/23 Unknown History simvastatin 10 mg tablet 10 mg PO DAILY 03/11/22 03/24/23 Unknown History collagenase clostridium histo. 250 1 appl topical DAILY 03/24/23 03/24/23 Unknown History unit/gram topical ointment (Santyl) docusate sodium 100 mg tablet 100 mg PO BID 03/24/23 03/24/23 Unknown History lidocaine 4 % topical gel 1 appl topical QIDACHS 03/24/23 03/24/23 Unknown History valacyclovir 1 gram tablet 1,000 mg PO TID 03/24/23 03/24/23 Unknown History Physical Exam Vital Signs and Narrative: Vital Signs: Last Vital Signs Temp 102.0 F H 03/24/23 22:33 Pulse 98 03/24/23 22:33 Resp 23 H 03/24/23 22:33 BP 130/75 03/24/23 22:33 Pulse Ox 94 03/24/23 22:33 O2 Del Method Nasal Cannula 03/24/23 22:33 O2 Flow Rate 4 03/24/23 22:33 Oxygen Flow Rate 8 03/24/23 18:49 BMI result Body Mass Index 22.6 Results Labs 03/24/23 19:36 03/24/23 19:36 Labs: Laboratory Results - last 24 hr 03/24/23 19:36 MCV 94.3 MCH 30.0 MCHC 31.9 RDW 16.1 H Plt Count 124 L MPV 9.3 L Immature Gran % (Auto) 1.2 H Neut % (Auto) 80.5 H Lymph % (Auto) 9.7 L [place] % (Auto) 8.1 Eos % (Auto) 0.1 Baso % (Auto) 0.4 Lymph # (Auto) 1.3 [place] # (Auto) 1.1 Eos # (Auto) 0.0 Baso # (Auto) 0.1 Abs Immat Gran (auto) 0.16 H Absolute Neuts (auto) 10.9 H Absolute Nucleated RBC 0.150 H Nucleated RBC % (auto) 1.1 H PT 15.6 H INR 1.3 H Anion Gap 16 Estim Creat Clear Calc 83.3 Estimated GFR > 60 Random Glucose 249 H Lactic Acid 2.0 Calcium 8.9 Magnesium 2.7 H Total Bilirubin 0.4 Direct Bilirubin 0.2 AST 35 ALT 11 Alkaline Phosphatase 48 B-Natriuretic Peptide 106 H Total Protein 7.1 Albumin 3.0 L Lipase 9 COVID-19 ([facility]NER) Positive A COVID-19 Clin Com See Note Imaging Radiologist's Impressions: Impressions Chest X-Ray 03/24/23 19:11 IMPRESSION: Unremarkable examination. Assessment and Plan (1) Aspiration into lower respiratory tract: Qualifiers: Encounter type: initial encounter Qualified Code(s): T17.800A - Unspecified foreign body in other parts of respiratory tract causing asphyxiation, initial encounter Status: Acute (2) Hypoxia: Status: Acute (3) COVID-19: Status: Acute Plan 72 year old male with history of cognitive and neurobehavior dysfunction, seizure desorder here with acute hypoxic resp failure, aspiration pneumonitis and Covid Acute hypoxic respiratory failure due to covid--O2 as needed, decadron 6 until no longer hypoxia, consider Remdesevir if worsening, Sepsis due to pneumonia or pneumonitis, aspiration type and covid--Zosyn (started 03/24), cultures pending, APAP for fever Metabolic Encephalopathy due to acute illness--treat underlying issues HypERnatremia--due to dehydration, lack of free water, D5, 1/2 NS and repeat in the morning NPO speech eval before continuing chronic oral meds DVT prophylaxis: Heparin Full code at least 2 midnight stay for treatement of sepsis due to pneuomina, covid with hypoxia Update guardian in the morning. Time Spent With Patient Time: Total time managing care of this patient today ____ minutes. Quality Stroke Does the patient have a stroke diagnosis?: No VTE Prior VTE?: No VTE Risk Level:: Medical - moderate - high VTE Device Contraindication: Treatment Not Indicated VTE Drug Contraindication: N/A - Med Ordered
[2023-03-24 23:43] VITALS: BP 112/69; PULSE 86; RESP 18; TEMP 38.5; O2SAT 99
[2023-03-25] VITALS (8 sets, daily range): BP systolic 105–132; BP diastolic 55–72; PULSE 65–76; RESP 16–18; TEMP 36–37.9; O2SAT 9–99; BMI 20.8; BMI 22.1
[2023-03-25] MEDS: Heparin Sodium,Porcine 5,000 UNIT/ML VIAL 5000 UNIT SUBCUT ×2 (00:20→09:38)
[2023-03-25] MEDS: 0.9 % Sodium Chloride Flush 3 ML SYRINGE IVFLUSH ×2 (00:28→09:39)
--- NOTE | 2023-03-25 02:02 | MHC.EDTECH ---
PT HAS A ROOM ON [facility] ,PT NOW BEING TRANSPORTED TO FLOOR .
[2023-03-25] MEDS: Dextrose 5 % and 0.45 % NaCl 1,000 ML 100 ML IVCONT (02:04)
--- NOTE | 2023-03-25 02:21 | PC.NURSE ---
anisha catheter replaced. IVF hung according to aug. pt informed of bed assignment. pt transported to bed assignment
[2023-03-25] MEDS: Piperacillin Sodium/Tazobactam 4.5 GM in 0.9 % Sodium Chloride 100 ML IV (03:42)
--- NOTE | 2023-03-25 06:17 | HO.SKINPHOTO ---
Addendum entered by Janny Rand RN 03/25/23 07:22: patient has unstageable to right buttocks. stage 1 across bilateral buttocks. allevyan applied to unstageable wound. patient on airloss bed,turn and reposition Q2H. heels floated, nutrition and wound consult in. patient has stage 1 left lateral spine, open to air. nonblanchable redness to right heel. Original Note: Location: right heel Category: Stage: Length: Width: Depth: cm Location: Category: Stage: Length: Width: Depth: cm Location: Category: Stage: Length: Width: Depth: cm Location: Category: Stage: Length: Width: Depth: cm Location: Category: Stage: Length: Width: Depth: cm Location: Category: Stage: Length: Width: Depth: cm
[2023-03-25 07:33] LABS: Hematocrit 34.1 % (42.0-52.0); Hemoglobin 10.5 g/dl (14.0-18.0); Mean Corpuscular HGB Conc 30.8 g/dl (31.0-36.0); Mean Corpuscular Hemoglobin 29.9 pg (27.0-33.0); Mean Corpuscular Volume 97.2 fL (80.0-98.0); Mean Platelet Volume 8.7 fL (9.4-12.4); NRBC Pct Auto 0.2 /100WBC (0.0-0.2); Platelet Count 108 X10*3/uL (160-400); Red Blood Count 3.51 X10*6/uL (4.60-5.80); White Blood Count 17.1 X10*3/uL (4.8-10.8)
[2023-03-25 07:48] LABS: Anion Gap 15 (12-20); Blood Urea Nitrogen 23 mg/dL (9-16); Calcium 8.8 mg/dL (8.4-10.2); Carbon Dioxide 30 mmol/L (22-29); Chloride 109 mmol/L (96-108); Creatinine Clr Calc Pharmacy 77.7; Estimated Glomerular Filt Rate > 60; Glucose Random 237 mg/dL (60-115); Potassium 3.4 mmol/L (3.3-5.1); Sodium 151 mmol/L (135-145)
[2023-03-25] MEDS: dexAMETHasone sod phosphate 4 MG/ML VIAL 6 MG IVPUSH (09:39)
--- NOTE | 2023-03-25 11:19 | MHC.CLN ---
RE: CONSULT PT WITH INCREASED NUTRITION RISK R/T PRESSURE INJURIES PT MAY ALSO HAVE 18% SIGNIFICANT WT LOSS X 6 MONTHS RECOMMEND OBTAINING RE-WEIGHT WTS RECENTLY WITH LARGE FLUCTUATIONS PREVIOUS WT HX REVEALS 80KG UBW; HT USED FOR ASSESSMENT 5'8 ; BMI WNL DIET ADVANCED TO PUREED WITH NT LIQ-LOSS PREVENTION ASSOCIATE FOLLOWING RECOMMEND ADDING ENSURE MAX BID TO PROMOTE WOUND HEALING SUPP TO PROVIDE 300KCALS, 60G PROTEIN MONITOR PO INTAKE AND OBTAIN NEW WEIGHT SEE ALSO FULL CLINICAL NUTRITION ASSESSMENT
[2023-03-25 11:31] LABS: Appearance Urine Cloudy; Color Urine Dark Yellow; Glucose Urine UA 100 mg/dL (Negative); Leukocyte Esterase Urine Trace (Negative); Nitrite Urine Negative (Negative); PH 5.5 (5.0-9.0); Specific Gravity - Urine >= 1.030 (1.005-1.025); UMIC TRIGGER UACC YES; Urine Blood Negative (Negative); Urine Ketones Negative (Negative); Urine Protein Trace mg/dL (Neg-Trace)
[2023-03-25 11:40] LABS: Bacteria Urine None Seen (None Seen); Squamous Epithelial Cell Urine 0-2 /HPF (0-2); WBC Urine 0-5 /HPF (0-5)
--- NOTE | 2023-03-25 13:14 | HO.PM.IMPN ---
Subjective Subjective Date of Service: 03/25/23 Interval History: aspirtional pneumonia Review of Systems only says few words unknown baseline Physical Exam Vital Signs: Vital Signs: Last Vital Signs Temp 97.2 F 03/25/23 11:57 Pulse 73 03/25/23 11:57 Resp 18 03/25/23 11:57 BP 121/72 03/25/23 11:57 Pulse Ox 92 03/25/23 11:57 O2 Del Method Nasal Cannula 03/25/23 11:57 O2 Flow Rate 2 03/25/23 11:57 Oxygen Flow Rate 4 03/25/23 00:10 BMI result Body Mass Index 22.1 Appearance: Awake, utter few words (near baseline). cvs: rrr, [id number] , no murmur res: clear to auscultation ,no rhonchii or wheezing abd: no rebound or guarding ,nt, bs present. ext pulses present , no cyanosis . neuro: axo3 , nonfocal. Objective Data Active Medications Acetaminophen (Acetaminophen Supp 650 Mg Supp.Rect) 650 mg [place] Q6H PRN PRN Reason: Fever Last Admin: 03/24/23 22:28 Dose: 650 mg Documented By: ZAIRA Acetaminophen (Acetaminophen Supp 650 Mg Supp.Rect) 650 mg [place] Q6H PRN PRN Reason: Pain, Mild (Pain Scale 1-3) Atenolol (Atenolol 25 Mg Tablet) 25 mg PO DAILY [facility]; Protocol Last Admin: 03/25/23 09:51 Dose: Not Given Documented By: ERIN Non-Admin Reason: NPO Atorvastatin Calcium (Atorvastatin Calcium 10 Mg Tablet) 10 mg PO DAILY [facility] Last Admin: 03/25/23 09:51 Dose: Not Given Documented By: ERIN Non-Admin Reason: NPO Dexamethasone Sodium Phosphate (Dexamethasone Sod Phosphate 4 Mg/Ml Vial) 6 mg IVPUSH DAILY [facility] Last Admin: 03/25/23 09:39 Dose: 6 mg Documented By: ERIN Divalproex Sodium (Divalproex Sodium Er 500 Mg Tab.Er.24h) 500 mg PO BID [facility] Last Admin: 03/25/23 09:51 Dose: Not Given Documented By: ERIN Non-Admin Reason: NPO Docusate Sodium (Docusate Sodium 100 Mg Capsule) 100 mg PO BID [facility] Last Admin: 03/25/23 09:51 Dose: Not Given Documented By: ERIN Non-Admin Reason: NPO Heparin Sodium (Porcine) (Heparin Sodium,Porcine 5,000 Unit/Ml Vial) 5,000 unit SUBCUT Q8H [facility] Last Admin: 03/25/23 09:38 Dose: 5,000 unit Documented By: ERIN Hydroxyzine HCl (Hydroxyzine Hcl 25 Mg Tablet) 25 mg PO BEDTIME PRN PRN Reason: Itching Piperacillin Sod/Tazobactam (Sod 4.5 gm/ Sodium Chloride) 100 mls @ 200 mls/hr IV Q6H [facility] Last Infusion: 03/25/23 11:06 Dose: Infused Documented By: ERIN Dextrose (D5w) 1,000 mls @ 50 mls/hr IVCONT .Q20H [facility] Last Admin: 03/25/23 11:08 Dose: 50 mls/hr Documented By: ERIN Levothyroxine Sodium (Levothyroxine Sodium 25 Mcg Tablet) 25 mcg PO DAILY@0630 [facility] Last Admin: 03/25/23 05:32 Dose: Not Given Documented By: CED Non-Admin Reason: Physician Held Med Memantine (Memantine Hcl 5 Mg Tablet) 5 mg PO DAILY [facility] Last Admin: 03/25/23 09:51 Dose: Not Given Documented By: ERIN Non-Admin Reason: NPO Mirtazapine (Mirtazapine 30 Mg Tablet) 30 mg PO BEDTIME [facility] Non-Formulary Medication (Lidocaine) 1 appl TOPICAL QIDACHS [facility] Sertraline HCl (Sertraline Hcl 25 Mg Tablet) 25 mg PO DAILY [facility] Last Admin: 03/25/23 09:51 Dose: Not Given Documented By: ERIN Non-Admin Reason: NPO Sodium Chloride (0.9 % Sodium Chloride Flush 3 Ml Syringe) 3 ml IVFLUSH QSHIFT [facility] Last Admin: 03/25/23 09:39 Dose: 3 ml Documented By: ERIN Valacyclovir HCl (Valacyclovir Hcl 1,000 Mg Tablet) 1,000 mg PO TID [facility] Last Admin: 03/25/23 09:52 Dose: Not Given Documented By: ERIN Non-Admin Reason: NPO Labs 03/25/23 07:19 03/25/23 11:16 Labs: Laboratory Results - last 24 hr 03/24/23 03/25/23 03/25/23 19:36 07:19 11:10 MCV 94.3 97.2 MCH 30.0 29.9 MCHC 31.9 30.8 L RDW 16.1 H 16.0 Plt Count 124 L 108 L MPV 9.3 L 8.7 L Immature Gran % (Auto) 1.2 H Neut % (Auto) 80.5 H Lymph % (Auto) 9.7 L Cameron % (Auto) 8.1 Eos % (Auto) 0.1 Baso % (Auto) 0.4 Lymph # (Auto) 1.3 Cameron # (Auto) 1.1 Eos # (Auto) 0.0 Baso # (Auto) 0.1 Abs Immat Gran (auto) 0.16 H Absolute Neuts (auto) 10.9 H Absolute Nucleated RBC 0.150 H 0.040 H Nucleated RBC % (auto) 1.1 H 0.2 PT 15.6 H INR 1.3 H Anion Gap 16 15 Estim Creat Clear Calc 83.3 77.7 Estimated GFR > 60 > 60 Random Glucose 249 H 237 H Lactic Acid 2.0 Calcium 8.9 8.8 Magnesium 2.7 H Total Bilirubin 0.4 Direct Bilirubin 0.2 AST 35 ALT 11 Alkaline Phosphatase 48 B-Natriuretic Peptide 106 H Total Protein 7.1 Albumin 3.0 L Lipase 9 Urine Color Dark Yellow Urine Appearance Cloudy Urine pH 5.5 Ur Specific [place] >= 1.030 H Urine Protein Trace Urine Glucose (UA) 100 H Urine Ketones Negative Urine Blood Negative Urine Nitrite Negative Ur Leukocyte Esterase Trace H Urine RBC 3-5 H Urine WBC 0-5 Ur Squamous Epith Cells 0-2 Urine Bacteria None Seen Hyaline Casts 3-5 COVID-19 ([facility]) Positive A COVID-19 Clin Com See Note Assessment and Plan (1) Aspiration into lower respiratory tract: Status: Acute (2) Hypoxia: Status: Acute (3) COVID-19: Status: Acute Plan 72 year old male with history of cognitive and neurobehavior dysfunction, seizure desorder here with acute hypoxic resp failure, aspiration pneumonitis and Covid Acute hypoxic respiratory failure due to covid--O2 as needed, decadron 6 until no longer hypoxia, consider Remdesevir if worsening, seen by speech and lyssa saw patient -diet updated. as per patient rehab staff-he was sent for ? aspiration. id eval Sepsis due to pneumonia or pneumonitis, aspiration type and covid--Zosyn (started 03/24), cultures pending, APAP for fever Metabolic Encephalopathy due to acute illness--treat underlying issues spoke to patient nurse Mr Godinez-mental status possible near baseline. HypERnatremia--due to dehydration, lack of free water, D5, 1/2 NS and repeat in the morning DVT prophylaxis: Heparin Full code onging hospitlization need:treatement of sepsis due to pneuomina, covid with hypoxia Updated guardian . Time Spent With Patient Time: Total time managing care of this patient today ____ minutes. Quality Stroke Does the patient have a stroke diagnosis?: No VTE Prior VTE?: No VTE Risk Level:: Medical - moderate - high VTE Device Contraindication: Treatment Not Indicated VTE Drug Contraindication: N/A - Med Ordered
--- NOTE | 2023-03-25 14:00 | MHC.SL.SWA ---
Speech Pathologist Impression: Risk of Aspiration Due to: Neurological Condition Reduced Cognition Dysphasia Diet Status: Liquid Consistency and Strategies for Safe Swallow: Liquid Intake Recommendation: [place] Thick Liquid Intake Strategies: Small Sips No Straws Solid Food Consistency: Dietary Recommendations: Pureed (NDD1) Additional Modifications to Solid Foods: Patient will require 1-1 feeding, with close monitoring for swallow as patient evidence pocketing of food and liquid at times, has delayed swallow, is at risk for aspiration. Liquids by controlled or assisted self-administered sip, or by tsp. Alternate liquids and solids. Assure that patient has swallowed before administering more food or liquid. Discontinue if patient is chronically pocketing food and not initiating swallow. Oral Medication Intake: Crushed with Puree Please contact the pharmacy regarding appropriate crushable or liquid drug formulations that are available whenever modified delivery is recommended. Compensatory Strategies and Precautions to be Taken for Safe Swallow: Sitting Upright (90 deg) No Straw Liquids from Cup Liquids from Spoon Small Bites and Sips Alternate Liquids/Solids Rate of Ingestion Change Oral Check Supervision While Eating and Drinking for Safe Swallow: Total Assistance (1:1) Foods to Avoid: Mixed consistencies. Swallowing Recommended Treatments: Compens. Strategy Educat. Recommendation for Speech: Inpatient Speech Therapy Comment: Patient presented with a moderate oral pharyngeal dysphagia as well as likely behavioral/avoidance issues during today's assessment. Patient during eval, delayed initiating swallow at times and pocketed food, demonstrated a delayed initiation of swallow of varying lengths, from brief delay to more prolonged delay. Patient evidenced theron aspiration on small amount of water administered today. Recommend Start diet of Puree (NDD1) with NECTAR THICK liquids, pills crushed in puree. Patient will need one to one feeding, as patient needed full assist during this assessment, had difficulty bringing food or drink to mouth, and is an aspiration risk due to noted pocketing of food and delay of swallow. , RD notified of recommendations by secure text, RN in person. [facility] will continue to follow, re-assess and advance diet if warrented. Frequency/Duration: M-F while inpatient. Date Range for Service Req: Timeline to reassess: Denture Waxer Clinican/Clinical Fellow: No Supervisory Statement: I have reviewed and agree with the student/clinical fellow's documentation: N/A Speech Language Pathologist: Michelle Moreno M.A., [facility]
--- NOTE | 2023-03-25 15:02 | MHC.CM.PN ---
IMM ADDRESSED WITH GUARDIAN VINCENT, COPY TO BE MAILED. PT ADMITTED FROM [facility] WHERE HE IS PRIVATELY PAYING FOR LTC. GUARDIAN HAS LEFT MESSAGE WITH ADY AT [facility] TO REQUEST BED HOLD. PER NURSE MATTHEW AT [facility], PT MAX ASSIST, MECHANICAL LIFT TO W/C PCP: DR MARQUEZ DP: RETURN REFERRAL SENT TO [facility], AWAITING RESPONSE
[2023-03-26 03:40] VITALS: BP 110/58; PULSE 68; RESP 18; TEMP 36.2; O2SAT 94
[2023-03-26 08:00] VITALS: BP 124/65; PULSE 76; RESP 17; TEMP 36.1
[2023-03-26 10:38] LABS: Anion Gap 15 (12-20); Blood Urea Nitrogen 23 mg/dL (9-16); Calcium 9.3 mg/dL (8.4-10.2); Carbon Dioxide 33 mmol/L (22-29); Chloride 107 mmol/L (96-108); Creatinine Clr Calc Pharmacy 84.1; Estimated Glomerular Filt Rate > 60; Glucose Random 118 mg/dL (60-115); Potassium 3.2 mmol/L (3.3-5.1); Sodium 152 mmol/L (135-145)
[2023-03-26 12:00] VITALS: BP 129/71; PULSE 62; RESP 17; TEMP 36; O2SAT 93
--- NOTE | 2023-03-26 12:01 | MHC.CLN ---
F/U PT WITH INCREASED NUTRITION RISK R/T PRESSURE INJURIES PT MAY ALSO HAVE 18% SIGNIFICANT WT LOSS X 6 MONTHS 65.9KG (03/25/23) 71.5KG (03/24) PT WITH 8% WT LOSS X 24 HRS NOT FEASIBLE RECOMMEND OBTAINING RE-WEIGHT WTS RECENTLY WITH LARGE FLUCTUATIONS PREVIOUS WT HX REVEALS 80KG UBW PO INTAKE 25% X 1 MEAL DIET RX: PUREED WITH NT LIQ-APPROPRIATE PT RECEIVING ENSURE MAX BID TO PROMOTE WOUND HEALING SUPP PROVIDES 300KCALS, 60G PROTEIN MONITOR PO INTAKE AND OBTAIN NEW WEIGHT
--- NOTE | 2023-03-26 13:34 | MHC.CM.PN ---
This CM left a voice message with pts guardian Chelsea to follow up, awaiting return phone call.
--- NOTE | 2023-03-26 14:04 | PM.CNNEP ---
History of Present Illness Reason for Consult Consult date: 03/26/23 Chief Complaint Chief complaint: COVID PNA, Acute Respiratory failure w/ Hypoxia History of Present Illness Narrative: Mr. Juan M White is a 72-year-old gentleman with past medical history of cognitive and neurobehavior dysfunction, seizure disorder who presented with acute hypoxic resp failure, aspiration pneumonitis and Covid. Course now complicated by Hypernatremia. Review of Systems Review of Systems only says few words unknown baseline Reports confusion Psychiatric: Reports confusion PMFSH Past Medical History Medical History Cognitive and neurobehavioral dysfunction Seizures Atypical depressive disorder Family History Family History Mother Heart disease Father Hx of colostomy Surgical History Surgical History History of amputation of finger of right hand Social History Social History Household Members: Family Housing: Jail Are you a primary plant care worker to a significant other at home: No Do you presently have visiting nurse or other home services: No Alcohol intake: never Patient Tobacco Use Status: Former Tobacco user Quit Date: 1989 Smoked: 30 +/- Smoked in Last 30 Days: No Second Hand Smoke Exposure: No Use of substances other than those prescribed or required for medical reasons: No Currently Displaying Signs/Symptoms of Drug Intoxication Withdrawal: No Advance Directives: Yes Advance Directives on File: Yes Advance Directives Date on File: 08/19/20 service: No Current occupational status: retired Sexual orientation: Straight/Heterosexual Meds Allergies Allergy/AdvReac Type Severity Reaction Status Date / Time No Known Allergies Allergy Verified 09/11/22 09:08 [No Known Allergies*] Active Medications: Current Medications Acetaminophen (Acetaminophen Supp 650 Mg Supp.Rect) 650 mg [place] Q6H PRN PRN Reason: Fever Last Admin: 03/24/23 22:28 Dose: 650 mg Acetaminophen (Acetaminophen Supp 650 Mg Supp.Rect) 650 mg [place] Q6H PRN PRN Reason: Pain, Mild (Pain Scale 1-3) Atenolol (Atenolol 25 Mg Tablet) 25 mg PO DAILY [facility]; Protocol Last Admin: 03/26/23 08:44 Dose: 25 mg Atorvastatin Calcium (Atorvastatin Calcium 10 Mg Tablet) 10 mg PO DAILY [facility] Last Admin: 03/26/23 08:44 Dose: 10 mg Dexamethasone Sodium Phosphate (Dexamethasone Sod Phosphate 4 Mg/Ml Vial) 6 mg IVPUSH DAILY [facility] Last Admin: 03/26/23 08:43 Dose: 6 mg Divalproex Sodium (Divalproex Sodium Er 500 Mg Tab.Er.24h) 500 mg PO BID [facility] Last Admin: 03/26/23 07:29 Dose: Not Given Docusate Sodium (Docusate Sodium 100 Mg Capsule) 100 mg PO BID [facility] Last Admin: 03/26/23 07:29 Dose: Not Given Heparin Sodium (Porcine) (Heparin Sodium,Porcine 5,000 Unit/Ml Vial) 5,000 unit SUBCUT Q8H [facility] Last Admin: 03/26/23 08:43 Dose: 5,000 unit Hydroxyzine HCl (Hydroxyzine Hcl 25 Mg Tablet) 25 mg PO BEDTIME PRN PRN Reason: Itching Piperacillin Sod/Tazobactam (Sod 4.5 gm/ Sodium Chloride) 100 mls @ 200 mls/hr IV Q6H [facility] Last Infusion: 03/26/23 09:56 Dose: Infused Sodium Chloride (Sodium Chloride 0.45 %) 1,000 mls @ 100 mls/hr IVCONT .Q10H [facility] Levothyroxine Sodium (Levothyroxine Sodium 25 Mcg Tablet) 25 mcg PO DAILY@0630 [facility] Last Admin: 03/26/23 05:12 Dose: Not Given Memantine (Memantine Hcl 5 Mg Tablet) 5 mg PO DAILY [facility] Last Admin: 03/26/23 08:43 Dose: 5 mg Mirtazapine (Mirtazapine 30 Mg Tablet) 30 mg PO BEDTIME [facility] Last Admin: 03/25/23 20:22 Dose: Not Given Non-Formulary Medication (Lidocaine) 1 appl TOPICAL QIDACHS [facility] Sertraline HCl (Sertraline Hcl 25 Mg Tablet) 25 mg PO DAILY [facility] Last Admin: 03/26/23 08:44 Dose: 25 mg Sodium Chloride (0.9 % Sodium Chloride Flush 3 Ml Syringe) 3 ml IVFLUSH QSHIFT [facility] Last Admin: 03/26/23 07:28 Dose: Not Given Home Medications Medication Instructions Recorded Confirmed Last Taken Type memantine 5 mg tablet 5 mg PO DAILY 12/04/20 03/24/23 12/04/20 History mirtazapine 30 mg tablet 30 mg PO BEDTIME 12/04/20 03/24/23 12/03/20 History hydroxyzine HCl 25 mg tablet 25 mg PO BEDTIME PRN Itching 03/11/22 03/24/23 Unknown History levothyroxine 25 mcg capsule 25 mcg PO DAILY 03/11/22 03/24/23 Unknown History sertraline 25 mg tablet 25 mg PO DAILY 03/11/22 03/24/23 Unknown History simvastatin 10 mg tablet 10 mg PO DAILY 03/11/22 03/24/23 Unknown History collagenase clostridium histo. 250 1 appl topical DAILY 03/24/23 03/24/23 Unknown History unit/gram topical ointment (Santyl) docusate sodium 100 mg tablet 100 mg PO BID 03/24/23 03/24/23 Unknown History lidocaine 4 % topical gel 1 appl topical QIDACHS 03/24/23 03/24/23 Unknown History valacyclovir 1 gram tablet 1,000 mg PO TID 03/24/23 03/24/23 Unknown History Physical Exam Vital Signs: Last Vital Signs Temp 96.8 F 03/26/23 12:00 Pulse 62 03/26/23 12:00 Resp 17 03/26/23 12:00 BP 129/71 03/26/23 12:00 Pulse Ox 93 03/26/23 12:00 O2 Del Method Room Air 03/26/23 12:00 O2 Flow Rate 2 03/25/23 11:57 Oxygen Flow Rate 4 03/25/23 00:10 BMI result Body Mass Index 22.1 Const General: confusion Orientation/consciousness: confusion HEENT Other: Dry MMs Resp Effort & Inspection: normal respiratory effort Auscultation: clear to auscultation bilaterally GI Palpation (GI): Soft to palpation Auscultation: normal bowel sounds Neuro General: confusion Extrem Other: No edema Results Lab Results 03/25/23 07:19 03/26/23 09:51 Lab results: Chemistry 03/24/23 03/25/23 03/25/23 19:36 07:19 11:16 Sodium 148 H 151 H 149 H Potassium 3.3 3.4 Carbon Dioxide 28 30 H BUN 26 H 23 H Creatinine 0.81 0.80 Calcium 8.9 8.8 03/25/23 03/25/23 03/26/23 16:18 22:12 09:51 Sodium 150 H 151 H 152 H Potassium 3.2 L Carbon Dioxide 33 H BUN 23 H Creatinine 0.74 Calcium 9.3 Hematology 03/24/23 03/25/23 19:36 07:19 WBC 13.5 H 17.1 H Hgb 11.5 L 10.5 L Plt Count 124 L 108 L Urinalysis 03/25/23 11:10 Urine Color Dark Yellow Urine Appearance Cloudy Urine pH 5.5 Ur Specific [place] >= 1.030 H Urine Protein Trace Urine Glucose (UA) 100 H Urine Ketones Negative Urine Blood Negative Urine Nitrite Negative Ur Leukocyte Esterase Trace H Urine RBC 3-5 H Urine WBC 0-5 Ur Squamous Epith Cells 0-2 Hyaline Casts 3-5 Assessment and Plan (1) Aspiration into lower respiratory tract: Qualifiers: Encounter type: initial encounter Qualified Code(s): T17.800A - Unspecified foreign body in other parts of respiratory tract causing asphyxiation, initial encounter Status: Acute (2) Hypoxia: Status: Acute (3) COVID-19: Status: Acute Plan Mr. Juan M White is a 72-year-old gentleman with past medical history of cognitive and neurobehavior dysfunction, seizure disorder who presented with acute hypoxic resp failure, aspiration pneumonitis and Covid. Course now complicated by Hypernatremia. 1. Hypernatremia patient has FW deficit of 2.8L Using D5/W has been limited by Hyperglycemia Plan: - Given hyperglycemia and some concern for a concomitant volume deficit (azotemic) along with this water deficite (hypernatremic) lets use 0.45% saline for now at 100cc/hr - daily labs are OK - encourage water intake as able - avoid diuretics. - controlling blood gulcose will help prevent further water losses Time Spent With Patient Time: Total time managing care of this patient today ____ minutes. Procedures Date of Service Date of Service: 03/26/23
--- NOTE | 2023-03-26 15:01 | MHC.CM.PN ---
PER MD ROUNDS, PT NOT YET MEDICALLY CLEARED TO DC DCP EXPECTED TO BE SNF PLACEMENT FACILITY [facility]
--- NOTE | 2023-03-26 15:09 | MHC.SL.SWA ---
Speech Pathologist Impression: Risk of aspiration, oropharyngeal dysphagia Risk of Aspiration Due to: Neurological Condition Reduced Cognition Dysphasia Diet Status: Downgrade to NPO d/t s/s of aspiration at bedside Liquid Consistency and Strategies for Safe Swallow: Liquid Intake Recommendation: NPO Solid Food Consistency: Dietary Recommendations: NPO Additional Modifications to Solid Foods: Pt seen for f/u this morning. He presented with overt s/s of aspiration with trials of nectar thick, pudding thick, and puree. Pt produced audible swallow and immediate wet cough consistently with PO intake. Pt's swallow was significantly delayed, at times absent laryngeal elevation. Recommend DOWNGRADE to NPO at this time, as pt is not tolerating conservatively modified textures. Notified team (MD, RN, RD) via [employer] Message. Recommend elevate head of bed at least 30 degrees, provide frequent oral care to reduce the microaspiration of oral bacteria. STRATEGIC PLANNING MANAGER will continue to follow, recommend re-evaluation when appropriate. STRATEGIC PLANNING MANAGER is available over the weekend for call-in through [employer] 9am-11am. Oral Medication Intake: NPO Please contact the pharmacy regarding appropriate crushable or liquid drug formulations that are available whenever modified delivery is recommended. Supervision While Eating and Drinking for Safe Swallow: PO with STRATEGIC PLANNING MANAGER Swallowing Recommended Treatments: Compens. Strategy Educat. Recommendation for Speech: Inpatient Speech Therapy Frequency/Duration: M-F while inpatient. Date Range for Service Req: Timeline to reassess: Brass Roller Clinican/Clinical Fellow: No Supervisory Statement: I have reviewed and agree with the student/clinical fellow's documentation: N/A Speech Language Pathologist: Allyssa Nolasco M.A., CCC-STRATEGIC PLANNING MANAGER
[2023-03-26 15:10] VITALS: BP 122/72; PULSE 68; RESP 18; TEMP 36.7; O2SAT 93
[2023-03-26 19:19] VITALS: BP 109/54; PULSE 62; RESP 19; TEMP 37; O2SAT 92
[2023-03-26 23:14] VITALS: BP 119/70; PULSE 65; RESP 17; TEMP 36.8; O2SAT 94
--- NOTE | 2023-03-26 23:17 | W.PM.IDCN ---
History of Present Illness Data of Consult Service Date: 03/26/23 Requesting physician: Es Parker Primary Care Provider: Mauricio Woods MD [facility] Reason for consult: aspiration He presents with weakness and shortness of breath. He has some aspiration. He has had repeat aspiration episodes. Review of Systems Review of Systems: Yes Unobtainable due to mental condition PMFSH Past Medical History Medical History Cognitive and neurobehavioral dysfunction Seizures Atypical depressive disorder Family History Family History Mother Heart disease Father Hx of colostomy Family history: reviewed and not pertinent Surgical History Surgical History History of amputation of finger of right hand Social History Social History Household Members: Family Housing: [facility] Are you a primary career education teacher to a significant other at home: No Do you presently have visiting nurse or other home services: No Alcohol intake: never Patient Tobacco Use Status: Former Tobacco user Quit Date: 1989 Smoked: 30 +/- Smoked in Last 30 Days: No Second Hand Smoke Exposure: No Use of substances other than those prescribed or required for medical reasons: No Currently Displaying Signs/Symptoms of Drug Intoxication Withdrawal: No Advance Directives: Yes Advance Directives on File: Yes Advance Directives Date on File: 08/19/20 service: No Current occupational status: retired Sexual orientation: Straight/Heterosexual Meds Allergies Allergy/AdvReac Type Severity Reaction Status Date / Time No Known Allergies Allergy Verified 09/11/22 09:08 [No Known Allergies*] Active Medications: Current Medications Acetaminophen (Acetaminophen Supp 650 Mg Supp.Rect) 650 mg [place] Q6H PRN PRN Reason: Fever Last Admin: 03/24/23 22:28 Dose: 650 mg Acetaminophen (Acetaminophen Supp 650 Mg Supp.Rect) 650 mg IA Q6H PRN PRN Reason: Pain, Mild (Pain Scale 1-3) Atenolol (Atenolol 25 Mg Tablet) [address] [facility]; Protocol Last Admin: 03/26/23 08:44 Dose: 25 mg Atorvastatin Calcium (Atorvastatin Calcium 10 Mg Tablet) [address] [facility] Last Admin: 03/26/23 08:44 Dose: 10 mg Dexamethasone Sodium Phosphate (Dexamethasone Sod Phosphate 4 Mg/Ml Vial) [address] [facility] Last Admin: 03/26/23 08:43 Dose: 6 mg Docusate Sodium (Docusate Sodium 100 Mg Capsule) [address] [facility] Last Admin: 03/26/23 07:29 Dose: Not Given Heparin Sodium (Porcine) (Heparin Sodium,Porcine 5,000 Unit/Ml Vial) 5,[address] [facility] Last Admin: 03/26/23 15:51 Dose: 5,000 unit Hydroxyzine HCl (Hydroxyzine Hcl 25 Mg Tablet) 25 mg PO BEDTIME PRN PRN Reason: Itching Piperacillin Sod/Tazobactam (Sod 4.5 gm/ Sodium Chloride) 100 mls @ 200 mls/hr IV Q6H [facility] Last Infusion: 03/26/23 22:00 Dose: Infused Sodium Chloride (Sodium Chloride 0.45 %) 1,000 mls @ 100 mls/hr IVCONT .Q10H [facility] Last Infusion: 03/26/23 15:22 Dose: 0 mls/hr Valproic Acid 500 mg/ Dextrose 55 mls @ 55 mls/hr IV Q12H [facility] Last Admin: 03/26/23 22:06 Dose: 55 mls/hr Levothyroxine Sodium (Levothyroxine Sodium 25 Mcg Tablet) 25 mcg PO DAILY@0630 [facility] Last Admin: 03/26/23 05:12 Dose: Not Given Memantine (Memantine Hcl 5 Mg Tablet) [address] [facility] Last Admin: 03/26/23 08:43 Dose: 5 mg Mirtazapine (Mirtazapine 30 Mg Tablet) [address] [facility] Last Admin: 03/25/23 20:22 Dose: Not Given Non-Formulary Medication (Lidocaine) [address] [facility] Sertraline HCl (Sertraline Hcl 25 Mg Tablet) [address] [facility] Last Admin: 03/26/23 08:44 Dose: 25 mg Sodium Chloride (0.9 % Sodium Chloride Flush 3 Ml Syringe) [address] [facility] Last Admin: 03/26/23 15:51 Dose: Not Given Home Medications Medication Instructions Recorded Confirmed Last Taken Type memantine 5 mg tablet 5 mg PO DAILY 12/04/20 03/24/23 12/04/20 History mirtazapine 30 mg tablet 30 mg PO BEDTIME 12/04/20 03/24/23 12/03/20 History hydroxyzine HCl 25 mg tablet 25 mg PO BEDTIME PRN Itching 03/11/22 03/24/23 Unknown History levothyroxine 25 mcg capsule 25 mcg PO DAILY 03/11/22 03/24/23 Unknown History sertraline 25 mg tablet 25 mg PO DAILY 03/11/22 03/24/23 Unknown History simvastatin 10 mg tablet 10 mg PO DAILY 03/11/22 03/24/23 Unknown History collagenase clostridium histo. 250 1 appl topical DAILY 03/24/23 03/24/23 Unknown History unit/gram topical ointment (Santyl) docusate sodium 100 mg tablet 100 mg PO BID 03/24/23 03/24/23 Unknown History lidocaine 4 % topical gel 1 appl topical QIDACHS 03/24/23 03/24/23 Unknown History valacyclovir 1 gram tablet 1,000 mg PO TID 03/24/23 03/24/23 Unknown History Physical Exam Vital Signs: Vital Signs: Last Vital Signs Temp 98.6 F 03/26/23 19:19 Pulse 62 03/26/23 19:19 Resp 19 03/26/23 19:19 BP 109/54 L 03/26/23 19:19 Pulse Ox 92 03/26/23 19:19 O2 Del Method Room Air 03/26/23 19:19 O2 Flow Rate 2 03/25/23 11:57 Oxygen Flow Rate 4 03/25/23 00:10 BMI result Body Mass Index 22.1 Const: General: cooperative HEENT: Head: Yes normal to inspection Face and sinus: Yes normal facial exam Mouth: Normal oral and palatal mucosa present Teeth and gingiva: dentition normal Eyes: General: appearance normal, both eyes and all related structures Pupils: Equal, round and reactive pupils present Resp: Effort & Inspection: normal respiratory effort Cardio: Rate: regular rate Rhythm: regular rhythm GI: Palpation (GI): Soft to palpation and nontender : General: Yes no CVA tenderness Back/Spine/Pelvis: Back: no CVA tenderness Skin: General skin exam: no rashes or lesions noted Neuro: General: moves all extremities Cranial nerves: Yes Equal, round and reactive pupils present Extrem: General: Yes normal to inspection Psych: Other: encephalopathic Results Labs 03/25/23 07:19 03/26/23 09:51 Labs: BMP 03/26/23 09:51 Sodium 152 H Potassium 3.2 L Chloride 107 Carbon Dioxide 33 H BUN 23 H Creatinine 0.74 Calcium 9.3 Microbiology Microbiology Results: Microbiology 03/24/23 19:36 Blood - Venous Blood Culture - Preliminary No growth after 48 hours. 03/24/23 19:36 Blood - Venous Blood Culture - Preliminary No growth after 48 hours. Assessment and Plan (1) Aspiration into lower respiratory tract: Qualifiers: Encounter type: initial encounter Qualified Code(s): T17.800A - Unspecified foreign body in other parts of respiratory tract causing asphyxiation, initial encounter Status: Acute He is day 3/probable six Zosyn for aspiration Await MRSA swab. Check urine Legionella and strep pneumonia. Continue Zosyn and may use procalcitonin level to check improvement. (2) Hypoxia: Status: Acute Time Spent With Patient Time: Total time managing care of this patient today ____ minutes.
[2023-03-27 02:48] VITALS: BP 108/58; PULSE 69; RESP 17; TEMP 36.6; O2SAT 95
[2023-03-27 07:06] LABS: Anion Gap 20 (12-20); Blood Urea Nitrogen 21 mg/dL (9-16); Calcium 8.7 mg/dL (8.4-10.2); Carbon Dioxide 21 mmol/L (22-29); Chloride 109 mmol/L (96-108); Creatinine Clr Calc Pharmacy 88.9; Estimated Glomerular Filt Rate > 60; Glucose Random 85 mg/dL (60-115); Potassium 3.8 mmol/L (3.3-5.1); Sodium 146 mmol/L (135-145)
[2023-03-27 07:35] VITALS: BP 137/69; PULSE 67; RESP 18; TEMP 36.1; O2SAT 96
--- NOTE | 2023-03-27 11:09 | PM.PNNEP ---
Subjective Subjective Date of Service: 03/27/23 Interval history: Hypernatremia better PO poor Physical Exam Vital Signs: Vital Signs: Last Vital Signs Temp 97 F 03/27/23 07:35 Pulse 67 03/27/23 07:35 Resp 18 03/27/23 07:35 BP 137/69 03/27/23 07:35 Pulse Ox 96 03/27/23 07:35 O2 Del Method Room Air 03/27/23 07:35 O2 Flow Rate 2 03/25/23 11:57 Oxygen Flow Rate 4 03/25/23 00:10 BMI result Body Mass Index 22.1 Const: General: confusion Orientation/consciousness: confusion HEENT: Other: Dry MMs Resp: Effort & Inspection: normal respiratory effort Auscultation: clear to auscultation bilaterally GI: Palpation (GI): Soft to palpation Auscultation: normal bowel sounds Neuro: General: confusion Extrem: Other: No edema Objective Data Labs 03/25/23 07:19 03/27/23 06:39 Labs: Laboratory Results - last 24 hr 03/26/23 03/27/23 03/27/23 21:32 06:39 07:34 Hold Purple Top SEE NOTE Sodium 146 H Potassium 3.8 Chloride 109 H Carbon Dioxide 21 L Anion Gap 20 BUN 21 H Creatinine 0.70 Estim Creat Clear Calc 88.9 Estimated GFR > 60 POC Glucose 108 75 Random Glucose 85 Calcium 8.7 D Microbiology Microbiology Results: Microbiology 03/24/23 19:36 Blood - Venous Blood Culture - Preliminary No growth after 48 hours. 03/24/23 19:36 Blood - Venous Blood Culture - Preliminary No growth after 48 hours. Procedures Date of Service Date of Service: 03/27/23 Assessment & Plan Assessment and plan (1) Aspiration into lower respiratory tract: Status: Acute (2) Hypoxia: Status: Acute (3) COVID-19: Status: Acute Plan Mr. Juan M White is a 72-year-old gentleman with past medical history of cognitive and neurobehavior dysfunction, seizure disorder who presented with acute hypoxic resp failure, aspiration pneumonitis and Covid. Course now complicated by Hypernatremia. 1. Hypernatremia patient has FW deficit of 2.8L Using D5/W has been limited by Hyperglycemia Patient did well with 0.45% saline. Patient now requires some calories and wish is to use dextrose products again. Plan: - Use D5/0.45% saline now that Na nearing normal. - daily labs are OK - encourage water intake as able - avoid diuretics. - controlling blood gulcose will help prevent further water losses Time Spent With Patient Time: Total time managing care of this patient today ____ minutes. Progress Note: Quality Stroke Does the patient have a stroke diagnosis?: No
[2023-03-27 11:15] LABS: Thyroid Stimulating Hormone 6.97 uIU/mL (0.32-4.0)
[2023-03-27 11:38] VITALS: BP 133/84; PULSE 56; RESP 18; TEMP 35.8; O2SAT 96
--- NOTE | 2023-03-27 12:04 | HO.PM.IMPN ---
Subjective Subjective Date of Service: 03/27/23 Interval History: aspirtional pneumonia Review of Systems no sob or fevers npo -due to difficulty swallowin has cough Physical Exam Vital Signs: Vital Signs: Last Vital Signs Temp 96.5 F L 03/27/23 11:38 Pulse 56 03/27/23 11:38 Resp 18 03/27/23 11:38 BP 133/84 03/27/23 11:38 Pulse Ox 96 03/27/23 11:38 O2 Del Method Room Air 03/27/23 11:38 O2 Flow Rate 2 03/25/23 11:57 Oxygen Flow Rate 4 03/25/23 00:10 BMI result Body Mass Index 22.1 Appearance: Awake, answer few questions cvs: [id number], [id number] , no murmur res: clear to auscultation ,no rhonchii or wheezing abd: no rebound or guarding ,nt, bs present. ext pulses present , no cyanosis . neuro: nonfocal. Objective Data Active Medications Acetaminophen (Acetaminophen Supp 650 Mg Supp.Rect) 650 mg [place] Q6H PRN PRN Reason: Fever Last Admin: 03/24/23 22:28 Dose: 650 mg Documented By: ZAIRA Acetaminophen (Acetaminophen Supp 650 Mg Supp.Rect) 650 mg GA Q6H PRN PRN Reason: Pain, Mild (Pain Scale 1-3) Atenolol (Atenolol 25 Mg Tablet) 25 mg PO DAILY [facility] BEDS AT [facility]; Protocol Last Admin: 03/26/23 08:44 Dose: 25 mg Documented By: ROBERT Atorvastatin Calcium (Atorvastatin Calcium 10 Mg Tablet) 10 mg PO DAILY [facility]S INCLUDE 234 BEDS AT [facility] Last Admin: 03/26/23 08:44 Dose: 10 mg Documented By: ROBERT Dexamethasone Sodium Phosphate (Dexamethasone Sod Phosphate 4 Mg/Ml Vial) 6 mg IVPUSH DAILY [facility]S [facility]CLUDE 234 BEDS AT [facility] Last Admin: 03/27/23 08:07 Dose: 6 mg Documented By: ROBERT Docusate Sodium (Docusate Sodium 100 Mg Capsule) 100 mg PO BID [facility]S INCLUDE 234 BEDS AT [facility] Last Admin: 03/26/23 07:29 Dose: Not Given Documented By: ROBERT Non-Admin Reason: pt. pocketing food Heparin Sodium (Porcine) (Heparin Sodium,Porcine 5,000 Unit/Ml Vial) 5,000 unit SUBCUT Q8H COUNTS INCLUDE 234 BEDS AT [facility] Last Admin: 03/27/23 08:07 Dose: 5,000 unit Documented By: ROBERT Hydroxyzine HCl (Hydroxyzine Hcl 25 Mg Tablet) 25 mg PO BEDTIME PRN PRN Reason: Itching Piperacillin Sod/Tazobactam (Sod 4.5 gm/ Sodium Chloride) 100 mls @ 200 mls/hr IV Q6H COUNTS INCLUDE 234 BEDS AT [facility] Last Infusion: 03/27/23 08:49 Dose: Infused Documented By: ROBERT Valproic Acid 500 mg/ Dextrose 55 mls @ 55 mls/hr IV Q12H COUNTS INCLUDE 234 BEDS AT [facility] Last Infusion: 03/27/23 11:32 Dose: Infused Documented By: ROBERT Dextrose/Sodium Chloride (D51/2ns) 1,000 mls @ 80 mls/hr IVCONT .[id number] COUNTS INCLUDE 234 BEDS AT THE [facility] Last Infusion: 03/27/23 11:35 Dose: 80 mls/hr Documented By: ROBERT Levothyroxine Sodium (Levothyroxine Sodium 25 Mcg Tablet) 25 mcg PO DAILY@0630 COUNTS INCLUDE 234 BEDS AT [facility] Last Admin: 03/27/23 04:56 Dose: Not Given Documented By: GRABIEL Non-Admin Reason: NPO Memantine (Memantine Hcl 5 Mg Tablet) 5 mg PO DAILY COUNTS INCLUDE 234 BEDS AT [facility] Last Admin: 03/26/23 08:43 Dose: 5 mg Documented By: ROBERT Mirtazapine (Mirtazapine 30 Mg Tablet) 30 mg PO BEDTIME COUNTS INCLUDE 234 BEDS AT [facility] Last Admin: 03/25/23 20:22 Dose: Not Given Documented By: SIXTO Non-Admin Reason: NPO Sertraline HCl (Sertraline Hcl 25 Mg Tablet) 25 mg PO DAILY COUNTS INCLUDE 234 BEDS AT [facility] Last Admin: 03/26/23 08:44 Dose: 25 mg Documented By: ROBERT Sodium Chloride (0.9 % Sodium Chloride Flush 3 Ml Syringe) 3 ml IVFLUSH QSHIFT COUNTS INCLUDE 234 BEDS AT THE [facility] Last Admin: 03/27/23 08:07 Dose: 3 ml Documented By: ROBERT Labs 03/25/23 07:19 03/27/23 06:39 Labs: Laboratory Results - last 24 hr 03/26/23 03/27/23 03/27/23 21:32 06:39 07:34 Hold Purple Top SEE NOTE Anion Gap 20 Estim Creat Clear Calc 88.9 Estimated GFR > 60 POC Glucose 108 75 Random Glucose 85 Calcium 8.7 D TSH 6.97 H 03/27/23 11:37 Hold Purple Top Anion Gap Estim Creat Clear Calc Estimated GFR POC Glucose 95 Random Glucose Calcium TSH Microbiology Microbiology Results: Microbiology 03/24/23 19:36 Blood Culture - Preliminary Blood - Venous No growth after 48 hours. 03/24/23 19:36 Blood Culture - Preliminary Blood - Venous No growth after 48 hours. Assessment and Plan (1) Aspiration into lower respiratory tract: Status: Acute (2) Hypoxia: Status: Acute (3) COVID-19: Status: Acute Plan 72 year old male with history of cognitive and neurobehavior dysfunction, seizure desorder here with acute hypoxic resp failure, aspiration pneumonitis and Covid Acute hypoxic respiratory failure due to covid--O2 as needed, decadron 6 until no longer hypoxia, consider Remdesevir if worsening, seen by speech and lyssa saw patient-npo. strep and legionella antigen,nasal mrsa swab added blood culture neg@48hr as per patient rehab staff-he was sent for ? aspiration. id eval-trend procalcitonin ,continue zosyn (started on 03/25/23). Sepsis due to pneumonia or pneumonitis, aspiration type and covid--Zosyn (started 03/24), cultures pending, APAP for fever Metabolic Encephalopathy due to acute illness--treat underlying issues spoke to patient nurse Mr Godinez-mental status possible near baseline. HypERnatremia,swallow difficulty--due to dehydration, lack of free water. sodium improved to 147 will call speech and swallow nutrtionist followin will start parenteral nutrition for now-ppn. mild bradycardia :asymptomatic hold atenolol cotninue to moniter possible hypothyriodism-on levothyroxine as per his med list.( reviewed chart 03/12 outpatient cardiav note -seems like on levothyroxine ,called rehab they do not know about pmhx but said he is on levothyroxine ) Pressure (decubitus) ulcer/injury coccyx Stage 2: turn nutrition -ppn wound care. DVT prophylaxis: Heparin Full code onging hospitlization need:treatement of sepsis due to pneuomina, covid -on iv antibiotics ,dexamethasone , also hyponatremia moniter renal /electrolyes ,need ppn for now dysphagia called guardian to updated. Time Spent With Patient Time: Total time managing care of this patient today ____ minutes. Quality Stroke Does the patient have a stroke diagnosis?: No VTE Prior VTE?: No VTE Risk Level:: Medical - moderate - high VTE Device Contraindication: Treatment Not Indicated VTE Drug Contraindication: N/A - Med Ordered
[2023-03-27 12:35] LABS: Magnesium 2.3 mg/dL (1.6-2.6)
[2023-03-27 12:57] LABS: Free T4 (Free Thyroxine) 1.03 ng/dL (0.71-1.85); Procalcitonin 0.06 ng/mL
[2023-03-27 16:00] VITALS: PULSE 55; RESP 20; TEMP 36.5; O2SAT 90
[2023-03-27 19:55] VITALS: BP 124/74; PULSE 67; RESP 20; TEMP 36.1; O2SAT 94
[2023-03-27 23:37] VITALS: BP 111/70; PULSE 65; RESP 18; TEMP 36.6; O2SAT 95
[2023-03-28 03:04] VITALS: BP 113/55; PULSE 52; RESP 17; TEMP 36.4; O2SAT 94
--- NOTE | 2023-03-28 06:49 | PC.NURSE ---
Pt. with one IV access and multiple IV meds and PPN due. Were not able to obtain 2nd iV line. Dr. Atkinson notified. PPN started at approx. 0100 d/t Zosyn and Valproic IV infused and IV attempts. Carlos Baker on telemetry with no sx.
[2023-03-28 07:33] LABS: Anion Gap 15 (12-20); Blood Urea Nitrogen 17 mg/dL (9-16); Calcium 8.4 mg/dL (8.4-10.2); Carbon Dioxide 27 mmol/L (22-29); Chloride 108 mmol/L (96-108); Creatinine Clr Calc Pharmacy 92.8; Estimated Glomerular Filt Rate > 60; Glucose Random 127 mg/dL (60-115); Phosphorus 2.7 mg/dL (2.7-4.5); Potassium 2.7 mmol/L (3.3-5.1); Sodium 147 mmol/L (135-145)
[2023-03-28 08:00] VITALS: BP 106/60; PULSE 57; RESP 20; TEMP 36.5; O2SAT 93
--- NOTE | 2023-03-28 10:49 | HO.PM.IMPN ---
Subjective Subjective Date of Service: 03/28/23 Interval History: hypernatremia ,swallow difficulty,hypokalemia Review of Systems able to swallow cough syrup denies any new c/o no fever still has cough Physical Exam Vital Signs: Vital Signs: Last Vital Signs Temp 97.7 F 03/28/23 08:00 Pulse 57 03/28/23 08:00 Resp 20 03/28/23 08:00 BP 106/60 03/28/23 08:00 Pulse Ox 93 03/28/23 08:00 O2 Del Method Room Air 03/28/23 08:00 O2 Flow Rate 2 03/25/23 11:57 Oxygen Flow Rate 4 03/25/23 00:10 BMI result Body Mass Index 22.1 Appearance: Awake, answer few questions cvs: rrr, [id number] , no murmur res: clear to auscultation ,no rhonchii or wheezing abd: no rebound or guarding ,nt, bs present. ext pulses present , no cyanosis . neuro: nonfocal. Objective Data Active Medications Acetaminophen (Acetaminophen Supp 650 Mg Supp.Rect) 650 mg [place] Q6H PRN PRN Reason: Fever Last Admin: 03/24/23 22:28 Dose: 650 mg Documented By: ZAIRA Acetaminophen (Acetaminophen Supp 650 Mg Supp.Rect) 650 mg [place] Q6H PRN PRN Reason: Pain, Mild (Pain Scale 1-3) Atenolol (Atenolol 25 Mg Tablet) 25 mg PO DAILY [facility]; Protocol Last Admin: 03/26/23 08:44 Dose: 25 mg Documented By: ROBERT Atorvastatin Calcium (Atorvastatin Calcium 10 Mg Tablet) 10 mg PO DAILY [facility] Last Admin: 03/26/23 08:44 Dose: 10 mg Documented By: ROBERT Docusate Sodium (Docusate Sodium 100 Mg Capsule) 100 mg PO BID [facility] Last Admin: 03/26/23 07:29 Dose: Not Given Documented By: ROBERT Non-Admin Reason: pt. pocketing food Guaifenesin (Guaifenesin 200 Mg/10 Ml 10 Ml Liquid) 10 ml PO Q4H PRN PRN Reason: Cough Last Admin: 03/28/23 09:25 Dose: 10 ml Documented By: ROBERT Heparin Sodium (Porcine) (Heparin Sodium,Porcine 5,000 Unit/Ml Vial) 5,000 unit SUBCUT Q8H [facility] Last Admin: 03/28/23 08:38 Dose: 5,000 unit Documented By: ROBERT Hydroxyzine HCl (Hydroxyzine Hcl 25 Mg Tablet) 25 mg PO BEDTIME PRN PRN Reason: Itching Piperacillin Sod/Tazobactam (Sod 4.5 gm/ Sodium Chloride) 100 mls @ 200 mls/hr IV Q6H [facility] Last Infusion: 03/28/23 09:16 Dose: Infused Documented By: ROBERT Valproic Acid 500 mg/ Dextrose 55 mls @ 55 mls/hr IV Q12H [facility] Last Infusion: 03/28/23 10:31 Dose: Infused Documented By: ROBERT Nutrition (Parenteral) (Parenteral Nutrition) 1,320 mls @ 55 mls/hr IV .Q24H [facility]; Protocol Stop: 03/28/23 20:59 Last Infusion: 03/28/23 08:52 Dose: 0 mls/hr Documented By: ROBERT Potassium Chloride (Potassium Chloride/H20) 10 meq in 100 mls @ 100 mls/hr IV Q1H [facility] Stop: 03/28/23 11:44 Last Infusion: 03/28/23 10:31 Dose: 100 mls/hr Documented By: ROBERT Nutrition (Parenteral) (Parenteral Nutrition) 1,800 mls @ 75 mls/hr IV .Q24H [facility]; Protocol Stop: 03/29/23 20:59 Levothyroxine Sodium (Levothyroxine Sodium 100 Mcg/5 Ml Vial) 12.5 mcg IVPUSH DAILY@0630 [facility] Last Admin: 03/28/23 04:32 Dose: Not Given Documented By: WESTLEY Non-Admin Reason: NPO Memantine (Memantine Hcl 5 Mg Tablet) 5 mg PO DAILY [facility] Last Admin: 03/26/23 08:43 Dose: 5 mg Documented By: ROBERT Mirtazapine (Mirtazapine 30 Mg Tablet) 30 mg PO BEDTIME [facility] Last Admin: 03/25/23 20:22 Dose: Not Given Documented By: SIXTO Non-Admin Reason: NPO Sertraline HCl (Sertraline Hcl 25 Mg Tablet) 25 mg PO DAILY [facility] Last Admin: 03/26/23 08:44 Dose: 25 mg Documented By: ROBERT Sodium Chloride (0.9 % Sodium Chloride Flush 3 Ml Syringe) 3 ml IVFLUSH QSHIFT [facility] Last Admin: 03/28/23 08:39 Dose: Not Given Documented By: ROBERT Non-Admin Reason: IV Running Labs 03/28/23 06:26 03/28/23 06:26 Labs: Laboratory Results - last 24 hr 03/27/23 03/27/23 03/27/23 06:39 11:37 13:00 MCV MCH MCHC RDW Plt Count MPV Absolute Nucleated RBC Nucleated RBC % (auto) Hold Purple Top Anion Gap Estim Creat Clear Calc Estimated GFR POC Glucose 95 Random Glucose Calcium Phosphorus 3.0 Magnesium 2.3 Procalcitonin 0.06 TSH 6.97 H Free T4 1.03 Nasal Screen MRSA (PCR) NEGATIVE Nasal S. aureus Screen POSITIVE A Nasal MRSA/S.aureus Interp SEE NOTE 03/27/23 03/27/23 03/28/23 16:41 20:51 01:18 MCV MCH MCHC RDW Plt Count MPV Absolute Nucleated RBC Nucleated RBC % (auto) Hold Purple Top Anion Gap Estim Creat Clear Calc Estimated GFR POC Glucose 123 H 109 111 Random Glucose Calcium Phosphorus Magnesium Procalcitonin TSH Free T4 Nasal Screen MRSA (PCR) Nasal S. aureus Screen Nasal MRSA/S.aureus Interp 03/28/23 03/28/23 06:26 07:29 MCV 93.9 MCH 29.7 MCHC 31.6 RDW 15.5 Plt Count 129 L MPV 8.9 L Absolute Nucleated RBC 0.030 H Nucleated RBC % (auto) 0.4 H Hold Purple Top SEE NOTE Anion Gap 15 Estim Creat Clear Calc 92.8 Estimated GFR > 60 POC Glucose 102 Random Glucose 127 H Calcium 8.4 Phosphorus 2.7 Magnesium 2.0 Procalcitonin TSH Free T4 Nasal Screen MRSA (PCR) Nasal S. aureus Screen Nasal MRSA/S.aureus Interp Assessment and Plan (1) Aspiration into lower respiratory tract: Status: Acute (2) Hypoxia: Status: Acute (3) COVID-19: Status: Acute (4) Hypokalemia: Status: Acute Plan 72 year old male with history of cognitive and neurobehavior dysfunction, seizure desorder here with acute hypoxic resp failure, aspiration pneumonitis and Covid Acute hypoxic respiratory failure due to covid--O2 as needed, decadron 6 until no longer hypoxia, consider Remdesevir if worsening, seen by speech and lyssa saw patient-npo. strep and legionella antigen pending ,nasal mrsa swab positive. blood culture neg@48hr as per patient rehab staff-he was sent for ? aspiration. id eval-trend procalcitonin ,continue zosyn (started on 03/25/23),added doxycycline (03/28/23). Sepsis due to pneumonia or pneumonitis, aspiration type and covid--Zosyn (started 03/24), cultures pending, APAP for fever Metabolic Encephalopathy due to acute illness--treat underlying issues spoke to patient nurse Mr Godinez-mental status possible near baseline. HypERnatremia,swallow difficulty--due to dehydration, lack of free water. sodium near similar 147 range called speech and swallow -message left. nutrtionist followin on parenteral nutrition for now-ppn(03/27/23). hypokalemia : replacements ordered. mild bradycardia :asymptomatic hold atenolol cotninue to moniter possible hypothyriodism-on levothyroxine as per his med list.( reviewed chart 03/12 outpatient cardiav note -seems like on levothyroxine ,called rehab they do not know about pmhx but said he is on levothyroxine ) Pressure (decubitus) ulcer/injury coccyx Stage 2: turn nutrition -ppn wound care. DVT prophylaxis: Heparin Full code onging hospitlization need:treatement of sepsis due to pneuomina, covid -on iv antibiotics ,dexamethasone , also hyponatremia moniter renal /electrolyes ,need ppn for now dysphagia guardian updated on 03/28/23. Time Spent With Patient Time: Total time managing care of this patient today ____ minutes. Quality Stroke Does the patient have a stroke diagnosis?: No VTE Prior VTE?: No VTE Risk Level:: Medical - moderate - high VTE Device Contraindication: Treatment Not Indicated VTE Drug Contraindication: N/A - Med Ordered
--- NOTE | 2023-03-28 11:19 | PM.PNNEP ---
Subjective Subjective Date of Service: 03/28/23 Interval history: now on parenteral nutrition Hypernatremia stable Hypokalemia repleted Physical Exam Vital Signs: Vital Signs: Last Vital Signs Temp 97.7 F 03/28/23 08:00 Pulse 57 03/28/23 08:00 Resp 20 03/28/23 08:00 BP 106/60 03/28/23 08:00 Pulse Ox 93 03/28/23 08:00 O2 Del Method Room Air 03/28/23 08:00 O2 Flow Rate 2 03/25/23 11:57 Oxygen Flow Rate 4 03/25/23 00:10 BMI result Body Mass Index 22.1 Const: General: confusion Orientation/consciousness: confusion HEENT: Other: Dry MMs Resp: Effort & Inspection: normal respiratory effort Auscultation: clear to auscultation bilaterally GI: Palpation (GI): Soft to palpation Auscultation: normal bowel sounds Neuro: General: confusion Extrem: Other: No edema Objective Data Labs 03/28/23 06:26 03/28/23 06:26 Labs: Laboratory Results - last 24 hr 03/27/23 03/27/23 03/27/23 06:39 11:37 13:00 WBC RBC Hgb Hct MCV MCH MCHC RDW Plt Count MPV Absolute Nucleated RBC Nucleated RBC % (auto) Hold Purple Top Sodium Potassium Chloride Carbon Dioxide Anion Gap BUN Creatinine Estim Creat Clear Calc Estimated GFR POC Glucose 95 Random Glucose Calcium Phosphorus 3.0 Magnesium 2.3 Procalcitonin 0.06 Free T4 1.03 Nasal Screen MRSA (PCR) NEGATIVE Nasal S. aureus Screen POSITIVE A Nasal MRSA/S.aureus Interp SEE NOTE 03/27/23 03/27/23 03/28/23 16:41 20:51 01:18 WBC RBC Hgb Hct MCV MCH MCHC RDW Plt Count MPV Absolute Nucleated RBC Nucleated RBC % (auto) Hold Purple Top Sodium Potassium Chloride Carbon Dioxide Anion Gap BUN Creatinine Estim Creat Clear Calc Estimated GFR POC Glucose 123 H 109 111 Random Glucose Calcium Phosphorus Magnesium Procalcitonin Free T4 Nasal Screen MRSA (PCR) Nasal S. aureus Screen Nasal MRSA/S.aureus Interp 03/28/23 03/28/23 06:26 07:29 WBC 7.1 RBC 3.30 L Hgb 9.8 L Hct 31.0 L MCV 93.9 MCH 29.7 MCHC 31.6 RDW 15.5 Plt Count 129 L MPV 8.9 L Absolute Nucleated RBC 0.030 H Nucleated RBC % (auto) 0.4 H Hold Purple Top SEE NOTE Sodium 147 H Potassium 2.7 L D Chloride 108 Carbon Dioxide 27 Anion Gap 15 BUN 17 H Creatinine 0.67 Estim Creat Clear Calc 92.8 Estimated GFR > 60 POC Glucose 102 Random Glucose 127 H Calcium 8.4 Phosphorus 2.7 Magnesium 2.0 Procalcitonin Free T4 Nasal Screen MRSA (PCR) Nasal S. aureus Screen Nasal MRSA/S.aureus Interp Microbiology Microbiology Results: Microbiology 03/24/23 19:36 Blood - Venous Blood Culture - Preliminary No growth after 48 hours. 03/24/23 19:36 Blood - Venous Blood Culture - Preliminary No growth after 48 hours. Procedures Date of Service Date of Service: 03/28/23 Assessment & Plan Assessment and plan (1) Aspiration into lower respiratory tract: Status: Acute (2) Hypoxia: Status: Acute (3) COVID-19: Status: Acute Plan Mr. Juan M White is a 72-year-old gentleman with past medical history of cognitive and neurobehavior dysfunction, seizure disorder who presented with acute hypoxic resp failure, aspiration pneumonitis and Covid. Course now complicated by Hypernatremia. 1. Hypernatremia patient has FW deficit of 2.8L Using D5/W has been limited by Hyperglycemia Patient did well with 0.45% saline. Now on parenteral nutrition Plan: - monitor serum Na on Parenteral nutrition - May need D5/W at 100cc/hr x1 Liter - labs daily. Time Spent With Patient Time: Total time managing care of this patient today ____ minutes. Progress Note: Quality Stroke Does the patient have a stroke diagnosis?: No
[2023-03-28 12:00] VITALS: BP 118/63; PULSE 64; RESP 20; TEMP 37.2; O2SAT 95
--- NOTE | 2023-03-28 14:16 | PC.NURSE ---
Pt. due to have multiple IV antibiotics, Potassium and PPN all hung at the same time. Pt. only has 1 IV access. Four different nurses tried to get another access on him but were unsuccessful. Spoke with MD and was told to hold the PPN while giving the other IV medications. Potassium and doxycycline given late d/t limited access.
[2023-03-28 15:57] VITALS: BP 111/53; PULSE 60; RESP 18; TEMP 37; O2SAT 96
[2023-03-28 19:12] VITALS: BP 157/75; PULSE 79; RESP 18; TEMP 36.6; O2SAT 93
[2023-03-28 23:37] VITALS: BP 157/68; PULSE 89; RESP 18; TEMP 37; O2SAT 94
[2023-03-29] VITALS (7 sets, daily range): BP systolic 99–142; BP diastolic 46–87; PULSE 57–88; RESP 16–20; TEMP 36.1–37; O2SAT 89–97
--- NOTE | 2023-03-29 10:28 | MHC.CLN ---
F/U PT STARTED ON PPN 03/27 DISCUSSED WITH MD AND PHARMACY TITLE VEHICLE SERVICE ATTENDANT RECOMMENDED NPO PT RECEIVED PPN AT 55ML/HR PROVIDED 673KCALS, 132G DEXTROSE, 56G PROTEIN ON 03/28 PPN INCREASED TO 75ML/HR PROVIDED 918KCALS, 77G PROTEIN (1.2G/KG), 180G DEXTROSE K REPLETED TODAY 03/29 REVIEWED LABS; TRIGS NOTED 145 DISCUSSED WITH PHARMACY PT TO CONTINUE PPN AT MAX GOAL RATE 75ML/HR PROVIDES 918KCALS, 77G PROTEIN (1.2G/KG), 180G DEXTROSE RECOMMEND ADDING 93G LIPIDS TO PROVIDE 1848 TOTAL KCALS (28KCALS/KG) REPLETE LYTES NEEDED PPN TO PROMOTE WOUND HEALING
--- NOTE | 2023-03-29 11:54 | MHC.SL.SWA ---
Speech Pathologist Impression: Risk of aspiration, oropharyngeal dysphagia Risk of Aspiration Due to: Neurological Condition Reduced Cognition Dysphasia Diet Status: UPGRADE TO NDD1/NTL Liquid Consistency and Strategies for Safe Swallow: Liquid Intake Recommendation: [place] Thick Liquid Intake Strategies: Small Sips No Straws Liquids by Teaspoon Only Solid Food Consistency: Dietary Recommendations: Pureed (NDD1) Additional Modifications to Solid Foods: Patient will require 1-1 feeding, with close monitoring for swallow as patient evidence pocketing of food and liquid at times, has delayed swallow, is at risk for aspiration. Liquids by controlled or assisted self-administered sip, or by tsp. Alternate liquids and solids. Assure that patient has swallowed before administering more food or liquid. Discontinue if patient is chronically pocketing food and not initiating swallow. Oral Medication Intake: Crushed with Puree Please contact the pharmacy regarding appropriate crushable or liquid drug formulations that are available whenever modified delivery is recommended. Compensatory Strategies and Precautions to be Taken for Safe Swallow: Sitting Upright (90 deg) Double Swallow No Straw Liquids from Spoon Small Bites and Sips Alternate Liquids/Solids Rate of Ingestion Change Oral Check Avoid Specific Foods Supervision While Eating and Drinking for Safe Swallow: Total Assistance (1:1) Swallowing Recommended Treatments: Compens. Strategy Educat. Recommendation for Speech: Inpatient Speech Therapy Software Requirements Engineer Clinican/Clinical Fellow: No Supervisory Statement: I have reviewed and agree with the student/clinical fellow's documentation: N/A Speech Language Pathologist: Allyssa Nolasco M.A., CCC-SUPERVISOR [employer]
--- NOTE | 2023-03-29 12:46 | PM.PNNEP ---
Subjective Subjective Date of Service: 03/29/23 Interval history: now on parenteral nutrition Hypernatremia stable Hypokalemia repleted Physical Exam Vital Signs: Vital Signs: Last Vital Signs Temp 97.4 F 03/29/23 11:34 Pulse 72 03/29/23 11:34 Resp 20 03/29/23 11:34 BP 138/74 03/29/23 11:34 Pulse Ox 92 03/29/23 11:34 O2 Del Method Room Air 03/29/23 11:34 O2 Flow Rate 2 03/25/23 11:57 Oxygen Flow Rate 4 03/25/23 00:10 BMI result Body Mass Index 22.1 Const: General: confusion Orientation/consciousness: confusion HEENT: Other: Dry MMs Resp: Effort & Inspection: normal respiratory effort Auscultation: clear to auscultation bilaterally GI: Palpation (GI): Soft to palpation Auscultation: normal bowel sounds Neuro: General: confusion Extrem: Other: No edema Objective Data Labs 03/28/23 06:26 03/29/23 07:34 Labs: Laboratory Results - last 24 hr 03/28/23 03/28/23 03/29/23 16:21 20:06 03:48 Sodium Potassium Chloride Carbon Dioxide Anion Gap BUN Creatinine Estim Creat Clear Calc Estimated GFR POC Glucose 88 92 82 Random Glucose Calcium Phosphorus Magnesium Albumin Triglycerides 03/29/23 03/29/23 03/29/23 07:34 07:46 11:01 Sodium 144 Potassium 2.6 L Chloride 107 Carbon Dioxide 27 Anion Gap 13 BUN 9 Creatinine 0.55 Estim Creat Clear Calc 113.1 Estimated GFR > 60 POC Glucose 118 H 135 H Random Glucose 122 H Calcium 8.1 L Phosphorus 2.2 L Magnesium 1.8 Albumin 2.7 L Triglycerides 145 Microbiology Microbiology Results: Microbiology 03/24/23 19:36 Blood - Venous Blood Culture - Preliminary No growth after 48 hours. 03/24/23 19:36 Blood - Venous Blood Culture - Preliminary No growth after 48 hours. Procedures Date of Service Date of Service: 03/29/23 Assessment & Plan Assessment and plan (1) Aspiration into lower respiratory tract: Status: Acute (2) Hypoxia: Status: Acute (3) COVID-19: Status: Acute Plan Mr. Juan M White is a 72-year-old gentleman with past medical history of cognitive and neurobehavior dysfunction, seizure disorder who presented with acute hypoxic resp failure, aspiration pneumonitis and Covid. Course now complicated by Hypernatremia. 1. Hypernatremia - resolved patient has FW deficit of 2.8L Using D5/W has been limited by Hyperglycemia Patient did well with 0.45% saline. Now on parenteral nutrition Plan: - Replete potassium - c/w parenteral nutrition - monitor electrolytes including mag and phos. RENAL WILL SIGN OFF PLEASE CALL IF ANY ISSUES ANYTIME Time Spent With Patient Time: Total time managing care of this patient today ____ minutes. Progress Note: Quality Stroke Does the patient have a stroke diagnosis?: No
--- NOTE | 2023-03-29 15:14 | HO.PM.IMPN ---
Subjective Subjective Date of Service: 03/29/23 Interval History: hypernatremia ,swallow difficulty,hypokalemia Review of Systems denies any new c/o no fever still has cough Physical Exam Vital Signs: Vital Signs: Last Vital Signs Temp 97.4 F 03/29/23 11:34 Pulse 72 03/29/23 11:34 Resp 20 03/29/23 11:34 BP 138/74 03/29/23 11:34 Pulse Ox 92 03/29/23 11:34 O2 Del Method Room Air 03/29/23 11:34 O2 Flow Rate 2 03/25/23 11:57 Oxygen Flow Rate 4 03/25/23 00:10 BMI result Body Mass Index 22.1 Appearance: Awake, answer few questions cvs: rrr, [id number] , no murmur res: clear to auscultation ,no rhonchii or wheezing abd: no rebound or guarding ,nt, bs present. ext pulses present , no cyanosis . neuro: nonfocal. Objective Data Active Medications Acetaminophen (Acetaminophen Supp 650 Mg Supp.Rect) 650 mg NE Q6H PRN PRN Reason: Fever Last Admin: 03/24/23 22:28 Dose: 650 mg Documented By: ZAIRA Acetaminophen (Acetaminophen Supp 650 Mg Supp.Rect) 650 mg NE Q6H PRN PRN Reason: Pain, Mild (Pain Scale 1-3) Atenolol (Atenolol 25 Mg Tablet) 25 mg PO DAILY [facility]; Protocol Last Admin: 03/26/23 08:44 Dose: 25 mg Documented By: ROBERT Atorvastatin Calcium (Atorvastatin Calcium 10 Mg Tablet) 10 mg PO DAILY [facility] Last Admin: 03/26/23 08:44 Dose: 10 mg Documented By: ROBERT Docusate Sodium (Docusate Sodium 100 Mg Capsule) 100 mg PO BID [facility] Last Admin: 03/26/23 07:29 Dose: Not Given Documented By: ROBERT Non-Admin Reason: pt. pocketing food Guaifenesin (Guaifenesin 200 Mg/10 Ml 10 Ml Liquid) 10 ml PO Q4H PRN PRN Reason: Cough Last Admin: 03/28/23 09:25 Dose: 10 ml Documented By: ROBERT Heparin Sodium (Porcine) (Heparin Sodium,Porcine 5,000 Unit/Ml Vial) 5,000 unit SUBCUT Q8H [facility] Last Admin: 03/29/23 09:50 Dose: 5,000 unit Documented By: KEYONA Hydroxyzine HCl (Hydroxyzine Hcl 25 Mg Tablet) 25 mg PO BEDTIME PRN PRN Reason: Itching Piperacillin Sod/Tazobactam (Sod 4.5 gm/ Sodium Chloride) 100 mls @ 200 mls/hr IV Q6H [facility] Last Infusion: 03/29/23 14:27 Dose: Infused Documented By: KEYONA Valproic Acid 500 mg/ Dextrose 55 mls @ 55 mls/hr IV Q12H [facility] Last Infusion: 03/29/23 11:31 Dose: Infused Documented By: KEYONA Nutrition (Parenteral) (Parenteral Nutrition) 1,800 mls @ 75 mls/hr IV .Q24H [facility]; Protocol Stop: 03/29/23 20:59 Last Infusion: 03/29/23 03:30 Dose: 75 mls/hr Documented By: WESTLEY Doxycycline Hyclate 100 mg/ (Sodium Chloride) 250 mls @ 166.67 mls/hr IV Q12H [facility] Last Infusion: 03/29/23 13:35 Dose: Infused Documented By: KEYONA Nutrition (Parenteral) (Parenteral Nutrition) 1,800 mls @ 75 mls/hr IV .Q24H [facility]; Protocol Stop: 03/30/23 20:59 Potassium Chloride (Potassium Chloride/H20) 10 meq in 100 mls @ 100 mls/hr IV Q1H [facility] Stop: 03/29/23 17:59 Levothyroxine Sodium (Levothyroxine Sodium 25 Mcg Tablet) 25 mcg PO DAILY@0600 [facility] Memantine (Memantine Hcl 5 Mg Tablet) 5 mg PO DAILY [facility] Last Admin: 03/26/23 08:43 Dose: 5 mg Documented By: ROBERT Mirtazapine (Mirtazapine 30 Mg Tablet) 30 mg PO BEDTIME [facility] Last Admin: 03/25/23 20:22 Dose: Not Given Documented By: SIXTO Non-Admin Reason: NPO Sertraline HCl (Sertraline Hcl 25 Mg Tablet) 25 mg PO DAILY [facility] Last Admin: 03/26/23 08:44 Dose: 25 mg Documented By: ROBERT Sodium Chloride (0.9 % Sodium Chloride Flush 3 Ml Syringe) 3 ml IVFLUSH QSHIFT [facility] Last Admin: 03/29/23 13:41 Dose: 3 ml Documented By: KEYONA Labs 03/28/23 06:26 03/29/23 07:34 Labs: Laboratory Results - last 24 hr 03/28/23 03/28/23 03/29/23 16:21 20:06 03:48 Anion Gap Estim Creat Clear Calc Estimated GFR POC Glucose 88 92 82 Random Glucose Calcium Phosphorus Magnesium Albumin Triglycerides 03/29/23 03/29/23 03/29/23 07:34 07:46 11:01 Anion Gap 13 Estim Creat Clear Calc 113.1 Estimated GFR > 60 POC Glucose 118 H 135 H Random Glucose 122 H Calcium 8.1 L Phosphorus 2.2 L Magnesium 1.8 Albumin 2.7 L Triglycerides 145 Assessment and Plan (1) Aspiration into lower respiratory tract: Status: Acute (2) Hypoxia: Status: Acute (3) COVID-19: Status: Acute (4) Hypokalemia: Status: Acute Plan 72 year old male with history of cognitive and neurobehavior dysfunction, seizure desorder here with acute hypoxic resp failure, aspiration pneumonitis and Covid Acute hypoxic respiratory failure due to covid--O2 as needed, decadron 6 until no longer hypoxia, consider Remdesevir if worsening, seen by jm saw patient-npo. strep and legionella antigen pending ,nasal mrsa swab positive. blood culture neg@48hr as per patient rehab staff-he was sent for ? aspiration. procalcitonin trend improving id eval -continue zosyn (started on 03/25/23),added doxycycline (03/28/23).No need for dexamethasone since not hypoxic. Sepsis due to pneumonia or pneumonitis, aspiration type and covid--please see above. Metabolic Encephalopathy due to acute illness--treat underlying issues spoke to patient nurse Mr Godinez-mental status possible near baseline. seen by jm 03/29/23: diet updtaed. HypERnatremia,swallow difficulty--due to dehydration, lack of free water. improved. called speech and swallow -message left. nutrtionist followin on parenteral nutrition for now-ppn(03/27/23). added free water po hypokalemia : replacements ordered.continue iv and po replacements . mild bradycardia :asymptomatic hold atenolol cotninue to moniter possible hypothyriodism-on levothyroxine as per his med list.( reviewed chart 03/12 outpatient cardiac note -seems like on levothyroxine ,called rehab they do not know about pmhx but said he is on levothyroxine -they said he was sent from [facility] [place] TO REHAB ON levothyroxine ) tsh elevated free t4-normal Pressure (decubitus) ulcer/injury coccyx Stage 2: turn nutrition -ppn wound care. DVT prophylaxis: Heparin Full code onging hospitlization need:treatement of sepsis due to pneuomina, covid -on iv antibiotics ,dexamethasone , also hypokalemia/hypophospatemia- moniter renal /electrolyes ,need ppn for 1 more day if tolerate diet. Time Spent With Patient Time: Total time managing care of this patient today ____ minutes. Quality Stroke Does the patient have a stroke diagnosis?: No VTE Prior VTE?: No VTE Risk Level:: Medical - moderate - high VTE Device Contraindication: Treatment Not Indicated VTE Drug Contraindication: N/A - Med Ordered
[2023-03-30] VITALS (7 sets, daily range): BP systolic 110–141; BP diastolic 67–98; PULSE 86–106; RESP 16–21; TEMP 36.2–36.8; O2SAT 93–99
--- NOTE | 2023-03-30 04:29 | PC.NURSE ---
CARE ASSUMED 19:00...AWAKE....RESPONDS WITH 1-2 RESPONSES..[address]ED TO [address]ACE/TIME/RECENT EVENTS..REMAINS ROOM AIR...LOOSE NON-PRODUCTIVE COUGH..RESPIRATIONS EASY ON ROOM AIR..ATTEMPTED TO GIVE MEDS CRUSHED IN PUDDING...WET COUGH...PATIENT POCKETING PUDDING DESPITE ENCOURAGEMENT TO SWALLOW....RETURNED TO NPO PER SPEECH NOTE RECOMMENDATION...PERIPHERAL HYPERAL 75 CC/HR...MULTIPLE ANTIBIOTICS PER AUG..[place] [employer] COLLECTING LARGE AMOUNTS KURT-YELLOW URINE...INCONTINANT SMALL TO MODERATE LOOSE BROWN STOOL...GI PANEL COLLECTED AND PENDING...DRESSINGS TO BUTTOCK AND BACK INTACT
--- NOTE | 2023-03-30 10:03 | MHC.CLN ---
F/U REVIEWED LABS DISCUSSED WITH PHARMACY CLUB WAITER/WAITRESS RECOMMENDED PUREED WITH NT LIQ PT CONTINUES WITH POCKETING FOOD AT TIMES; 1:1 FEED CONTINUE PPN AT MAX GOAL RATE 75ML/HR PROVIDES 1848 TOTAL KCALS FROM FORMULA AND LIPIDS (28KCALS/KG), 77G PROTEIN (1.2G/KG), 180G DEXTROSE WITH 93G LIPIDS REPLETE LYTES NEEDED PPN WILL PROMOTE WOUND HEALING MONITOR PO INTAKE CLOSELY
--- NOTE | 2023-03-30 11:57 | HO.PM.IMPN ---
Subjective Subjective Date of Service: 03/30/23 Interval History: awake alert offers no acute complaints , no lightheadedness, no dizziness, noted to have cough with pureed diet oxygenation 93% on room air, no acute overnight events, no fever, no chills. Review of Systems all other system reviewed and negative. Physical Exam Vital Signs: Vital Signs: Last Vital Signs Temp 97.5 F 03/30/23 11:29 Pulse 106 H 03/30/23 11:29 Resp 16 03/30/23 11:29 BP 135/78 03/30/23 11:29 Pulse Ox 95 03/30/23 11:29 O2 Del Method Room Air 03/30/23 11:29 O2 Flow Rate 2 03/30/23 08:00 Oxygen Flow Rate 4 03/25/23 00:10 BMI result Body Mass Index 22.1 Const: Other: General awake alert, resting comfortably in no acute distress. Neck supple no JVD. CVS regular rate rhythm, Respiratory lungs clear to auscultation, no respiratory distress, no wheeze, no rhonchi. Gastrointestinal abdomen soft, nontender, bowel sounds audible, no guarding , no rigidity. Extremities no edema. Neuro nonfocal ,speech clear. Skin no rash Objective Data Active Medications Acetaminophen (Acetaminophen Supp 650 Mg Supp.Rect) 650 mg DE Q6H PRN PRN Reason: Fever Last Admin: 03/24/23 22:28 Dose: 650 mg Documented By: ZAIRA Acetaminophen (Acetaminophen Supp 650 Mg Supp.Rect) 650 mg DE Q6H PRN PRN Reason: Pain, Mild (Pain Scale 1-3) Atenolol (Atenolol 25 Mg Tablet) 25 mg PO DAILY [facility]; Protocol Last Admin: 03/26/23 08:44 Dose: 25 mg Documented By: ROBERT Atorvastatin Calcium (Atorvastatin Calcium 10 Mg Tablet) 10 mg PO DAILY [facility] Last Admin: 03/26/23 08:44 Dose: 10 mg Documented By: ROBERT Guaifenesin (Guaifenesin 200 Mg/10 Ml 10 Ml Liquid) 10 ml PO Q4H PRN PRN Reason: Cough Last Admin: 03/28/23 09:25 Dose: 10 ml Documented By: ROBERT Heparin Sodium (Porcine) (Heparin Sodium,Porcine 5,000 Unit/Ml Vial) 5,000 unit SUBCUT Q8H [facility] Last Admin: 03/30/23 09:53 Dose: 5,000 unit Documented By: IDALIA Hydroxyzine HCl (Hydroxyzine Hcl 25 Mg Tablet) 25 mg PO BEDTIME PRN PRN Reason: Itching Piperacillin Sod/Tazobactam (Sod 4.5 gm/ Sodium Chloride) 100 mls @ 200 mls/hr IV Q6H [facility] Last Infusion: 03/30/23 10:41 Dose: Infused Documented By: IDALIA Valproic Acid 500 mg/ Dextrose 55 mls @ 55 mls/hr IV Q12H [facility] Last Admin: 03/30/23 10:45 Dose: 55 mls/hr Documented By: IDALIA Doxycycline Hyclate 100 mg/ (Sodium Chloride) 250 mls @ 166.67 mls/hr IV Q12H [facility] Last Infusion: 03/30/23 00:19 Dose: Infused Documented By: LUIS Nutrition (Parenteral) (Parenteral Nutrition) 1,800 mls @ 75 mls/hr IV .Q24H [facility]; Protocol Stop: 03/30/23 20:59 Last Admin: 03/29/23 22:36 Dose: 75 mls/hr Documented By: LUIS Potassium Phosphate (Kphos) 15 mmol in 250 mls @ 62.5 mls/hr IV ONCE ONE Stop: 03/30/23 14:29 Last Admin: 03/30/23 11:55 Dose: 62.5 mls/hr Documented By: IDALIA Levothyroxine Sodium (Levothyroxine Sodium 25 Mcg Tablet) 25 mcg PO DAILY@0600 [facility] Last Admin: 03/30/23 05:04 Dose: Not Given Documented By: LUIS Non-Admin Reason: Patient Condition Contraindication Memantine (Memantine Hcl 5 Mg Tablet) 5 mg PO DAILY [facility] Last Admin: 03/30/23 09:54 Dose: 5 mg Documented By: IDALIA Mirtazapine (Mirtazapine 30 Mg Tablet) 30 mg PO BEDTIME [facility] Last Admin: 03/29/23 21:10 Dose: 30 mg Documented By: LUIS Potassium Chloride (Potassium Chloride Packet 20 Meq Packet) 40 meq PO ONCE ONE Stop: 03/30/23 14:01 Sertraline HCl (Sertraline Hcl 25 Mg Tablet) 25 mg PO DAILY [facility] Last Admin: 03/30/23 09:54 Dose: 25 mg Documented By: ANTHONYTEKDianna Sodium Chloride (0.9 % Sodium Chloride Flush 3 Ml Syringe) 3 ml IVFLUSH QSHIFT [facility] Last Admin: 03/30/23 09:54 Dose: 3 ml Documented By: FOSTEKR Labs 03/28/23 06:26 03/30/23 07:36 Labs: Laboratory Results - last 24 hr 03/29/23 03/30/23 03/30/23 00:15 07:36 07:42 Anion Gap 14 Estim Creat Clear Calc 115.2 Estimated GFR > 60 POC Glucose 137 H Random Glucose 149 H Calcium 8.6 D Phosphorus 2.7 Magnesium 2.0 Stl C. cayetanensis PCR Not Detected Stool Rotavirus A PCR Not Detected Stl Adenov F 40/41 PCR Not Detected Stool Astrovirus (PCR) Not Detected Stool Campylobacter PCR Not Detected Stool Cryptosporidium PCR Not Detected Stl Sh Tox Pr E STEC PCR Not Detected Stool E coli O157 PCR Not applicable Stl Enterotoxigenic E PCR Not Detected Stool EPEC (PCR) Not Detected Stool EAEC (PCR) Not Detected Stl E. histolytica PCR Not Detected Stool Giardia Lamblia PCR Not Detected Stl P. shigelloides PCR Not Detected Stool Salmonella PCR Not Detected Stool Sapovirus (PCR) Not Detected Stl Shigella/EIEC PCR Not Detected St Y.enterocolitica PCR Not Detected Stool Vibrio (PCR) Not Detected Stl Vibrio cholerae PCR Not Detected Stl Norovirus GI/GII PCR Not Detected Microbiology Microbiology Results: Microbiology 03/24/23 19:36 Blood Culture - Final Blood - Venous No growth after 5 days. 03/24/23 19:36 Blood Culture - Final Blood - Venous No growth after 5 days. Assessment and Plan (1) Aspiration into lower respiratory tract: Status: Acute (2) Hypoxia: Status: Acute (3) COVID-19: Status: Acute (4) Hypokalemia: Status: Acute Plan 72 year old male with history of cognitive and neurobehavior dysfunction, seizure desorder here with acute hypoxic resp failure, aspiration pneumonitis and Covid Acute hypoxic respiratory failure due to covid-- hypoxia resolved, on RA 93%, not on dexamethasone strep and legionella antigen pending ,nasal mrsa swab positive. blood culture neg@48hr procalcitonin 0.06, DC IV doxy Sepsis due to aspiration pneumonia continue IV Zosyn Metabolic Encephalopathy due to acute illness resolved Hypernatremia resolved Dysphagia continue parenteral nutrition IV PPN started on (03/27/23). seen by speech therapy they recommend pureed and nectar thick liquids, as per RN patient not tolerating pureed diet. cont. speech therapy hypokalemia : potassium remains low normal continue iv and po replacements . mild bradycardia : resolved will resume atenolol hypothyriodism- tsh elevated ,Free t4-normal, continue levothyroxine Pressure (decubitus) ulcer/injury coccyx Stage 2: continue position change,iv PPN DVT prophylaxis: Heparin Full code onging hospitlization need:treatement of sepsis due to pn[place] floresid , on IV PPN due to persistent dysphagia. Time Spent With Patient Time: Total time managing care of this patient today ____ minutes. Quality Stroke Does the patient have a stroke diagnosis?: No VTE Prior VTE?: No VTE Risk Level:: Medical - moderate - high VTE Device Contraindication: Treatment Not Indicated VTE Drug Contraindication: N/A - Med Ordered
--- NOTE | 2023-03-30 13:11 | MHC.CM.PN ---
EMR reviewed and per MD rounds, pt is not medically cleared for D/C today due to continued need for IV abx, and pt remaining on TPN, if diet tolerated will likely D/C TPN tomorrow. CM will continue to follow.
[2023-03-31 03:20] VITALS: BP 106/65; PULSE 86; RESP 24; TEMP 36.4; O2SAT 96
[2023-03-31 06:09] LABS: Strep Pneumo Ag urine Not Detected (Not Detected)
[2023-03-31 07:10] VITALS: BP 123/74; PULSE 95; RESP 20; TEMP 36.8; O2SAT 94
[2023-03-31 08:47] LABS: Albumin Level 2.6 g/dL (3.5-5.0); Anion Gap 12 (12-20); Blood Urea Nitrogen 13 mg/dL (9-16); Calcium 8.6 mg/dL (8.4-10.2); Carbon Dioxide 23 mmol/L (22-29); Chloride 107 mmol/L (96-108); Creatinine Clr Calc Pharmacy 111.1; Estimated Glomerular Filt Rate > 60; Glucose Random 134 mg/dL (60-115); Potassium 3.4 mmol/L (3.3-5.1); Sodium 139 mmol/L (135-145)
--- NOTE | 2023-03-31 09:38 | MHC.CM.PN ---
Addendum entered by Michelle Trevino RN 03/31/23 10:20: PER PREVIOUS CM PT'S GUARDIAN PRIVATE PAYING FOR LTC, PT HAS NOT BEEN A RESIDENT AT [facility] SINCE NOVEMBER AND WERE TOLD BY SNF THAT PT IS LTC SO BED WAS GIVEN AWAY. TAMI LECHUGA UPDATED ON PLAN FOR HOSPITALIST TO DISCUSS GTUBE PLACEMENT W/GUARDIAN, CM WILL CONT TO FOLLOW D/C NEEDS. Addendum entered by Michelle Trevino RN 03/31/23 09:39: PT WILL NEED TO PT EVAL TO DETERMINE DISPO. Original Note: EMR REVIEWED, PT REMAINS ON TPN, IF PT TOLERATING PO INTAKE TPN TO BE D/C'D, NO PLAN FOR D/C AT THIS TIME, PLAN WILL BE TO RETURN TO [facility] VS RETURN TO STR AT [facility], CM WILL CONT TO FOLLOW D/C NEEDS.
[2023-03-31 11:00] VITALS: BP 119/68; PULSE 88; RESP 18; TEMP 36.7; O2SAT 96
--- NOTE | 2023-03-31 13:56 | MHC.CLN ---
F/U REVIEWED LABS DISCUSSED WITH PHARMACY TRANSPORT SPECIALIST RECOMMENDED PUREED WITH NT LIQ PT CONTINUES WITH POCKETING FOOD AT TIMES; 1:1 FEED 1 MEAL REFUSAL NOTED CONTINUE PPN AT MAX GOAL RATE 75ML/HR PROVIDES 1848 TOTAL KCALS FROM FORMULA AND LIPIDS (28KCALS/KG), 77G PROTEIN (1.2G/KG), 180G DEXTROSE WITH 93G LIPIDS REPLETE LYTES NEEDED PPN WILL PROMOTE WOUND HEALING MONITOR PO INTAKE CLOSELY
--- NOTE | 2023-03-31 14:15 | MHC.SL.SWA ---
Speech Pathologist Impression: Risk of Aspiration Due to: Neurological Condition Reduced Cognition Dysphasia Diet Status: DOWNGRADE to NPO Liquid Consistency and Strategies for Safe Swallow: Liquid Intake Recommendation: NPO Solid Food Consistency: Dietary Recommendations: NPO Oral Medication Intake: NPO Please contact the pharmacy regarding appropriate crushable or liquid drug formulations that are available whenever modified delivery is recommended. Compensatory Strategies and Precautions to be Taken for Safe Swallow: Sitting Upright (90 deg) Double Swallow No Straw Liquids from Spoon Small Bites and Sips Alternate Liquids/Solids Rate of Ingestion Change Oral Check Avoid Specific Foods Supervision While Eating and Drinking for Safe Swallow: PO with FORGE TENDER Swallowing Recommended Treatments: Compens. Strategy Educat. Recommendation for Speech: Inpatient Speech Therapy Recommend DOWNGRADE to NPO. Patient swallowed 1 of 2 puree solid trials following severely delayed swallow (>1 minute) w/ frequent cueing. Following approximately 2 minutes, patient spit out second bite. Per conversation w/ RN following today's PO trials, patient is recommended NPO at this time. Patient's whiteboard updated. SHANK TURNER notified on floor. RN and MD notified via [place]. FORGE TENDER to re-evaluate tomorrow. Frequency/Duration: M-F while inpatient. Warehouse Stocker Clinican/Clinical Fellow: No Supervisory Statement: I have reviewed and agree with the student/clinical fellow's documentation: N/A Speech Language Pathologist: Manisha Skaggs M.A., [facility]-FORGE TENDER
--- NOTE | 2023-03-31 15:12 | HO.PM.IMPN ---
Subjective Subjective Date of Service: 03/31/23 Interval History: intermittently coughing offers no acute complaints, denies chest pain, no headache, no dizziness, vitals stable, no acute events overnight. Review of Systems all other system reviewed and negative Physical Exam Vital Signs: Vital Signs: Last Vital Signs Temp 98.1 F 03/31/23 11:00 Pulse 88 03/31/23 11:00 Resp 18 03/31/23 11:00 BP 119/68 03/31/23 11:00 Pulse Ox 96 03/31/23 11:00 O2 Del Method Room Air 03/31/23 11:00 O2 Flow Rate 2 03/30/23 08:00 Oxygen Flow Rate 4 03/25/23 00:10 BMI result Body Mass Index 22.1 Const: Other: General awake alert, coughing,in no acute distress. Neck supple no JVD. CVS regular rate rhythm, Respiratory lungs clear to auscultation, few rhonchi, no respiratory distress, no wheeze, Gastrointestinal abdomen soft, non tender, bowel sounds audible, no guarding , no rigidity. Extremities no edema, Neuro nonfocal ,speech clear, verbalized minimally. Skin no rash Objective Data Active Medications Acetaminophen (Acetaminophen Supp 650 Mg Supp.Rect) 650 mg NV Q6H PRN PRN Reason: Fever Last Admin: 03/24/23 22:28 Dose: 650 mg Documented By: ZAIRA Acetaminophen (Acetaminophen Supp 650 Mg Supp.Rect) 650 mg NV Q6H PRN PRN Reason: Pain, Mild (Pain Scale 1-3) Atenolol (Atenolol 25 Mg Tablet) 25 mg PO DAILY [facility]; Protocol Last Admin: 03/31/23 07:26 Dose: 25 mg Documented By: IDALIA Atorvastatin Calcium (Atorvastatin Calcium 10 Mg Tablet) 10 mg PO DAILY [facility] Last Admin: 03/26/23 08:44 Dose: 10 mg Documented By: ROBERT Guaifenesin (Guaifenesin 200 Mg/10 Ml 10 Ml Liquid) 10 ml PO Q4H PRN PRN Reason: Cough Last Admin: 03/28/23 09:25 Dose: 10 ml Documented By: ROBERT Heparin Sodium (Porcine) (Heparin Sodium,Porcine 5,000 Unit/Ml Vial) 5,000 unit SUBCUT Q8H [facility] Last Admin: 03/31/23 07:25 Dose: 5,000 unit Documented By: IDALIA Hydroxyzine HCl (Hydroxyzine Hcl 25 Mg Tablet) 25 mg PO BEDTIME PRN PRN Reason: Itching Piperacillin Sod/Tazobactam (Sod 4.5 gm/ Sodium Chloride) 100 mls @ 200 mls/hr IV Q6H [facility] Last Infusion: 03/31/23 08:02 Dose: Infused Documented By: IDALIA Valproic Acid 500 mg/ Dextrose 55 mls @ 55 mls/hr IV Q12H [facility] Last Infusion: 03/30/23 22:06 Dose: Infused Documented By: ANAIS Nutrition (Parenteral) (Parenteral Nutrition) 1,800 mls @ 75 mls/hr IV .Q24H [facility]; Protocol Stop: 03/31/23 20:59 Last Admin: 03/30/23 20:52 Dose: 75 mls/hr Documented By: ANAIS Potassium Phosphate (Kphos) 15 mmol in 250 mls @ 62.5 mls/hr IV ONCE ONE Stop: 03/31/23 17:59 Nutrition (Parenteral) (Parenteral Nutrition) 1,800 mls @ 75 mls/hr IV .Q24H [facility]; Protocol Stop: 04/01/23 20:59 Levothyroxine Sodium (Levothyroxine Sodium 25 Mcg Tablet) 25 mcg PO DAILY@0600 [facility] Last Admin: 03/31/23 05:46 Dose: 25 mcg Documented By: ANAIS Memantine (Memantine Hcl 5 Mg Tablet) 5 mg PO DAILY [facility] Last Admin: 03/31/23 07:25 Dose: 5 mg Documented By: IDALIA Mirtazapine (Mirtazapine 30 Mg Tablet) 30 mg PO BEDTIME [facility] Last Admin: 03/30/23 20:14 Dose: 30 mg Documented By: ANAIS Sertraline HCl (Sertraline Hcl 25 Mg Tablet) 25 mg PO DAILY [facility] Last Admin: 03/31/23 07:25 Dose: 25 mg Documented By: IDALIA Sodium Chloride (0.9 % Sodium Chloride Flush 3 Ml Syringe) 3 ml IVFLUSH QSHIFT [facility] Last Admin: 03/31/23 08:03 Dose: Not Given Documented By: IDALIA Non-Admin Reason: IV Running Labs 03/28/23 06:26 03/31/23 07:26 Labs: Laboratory Results - last 24 hr 03/27/23 03/30/23 03/30/23 15:00 16:08 21:13 Hold Purple Top Anion Gap Estim Creat Clear Calc Estimated GFR POC Glucose 131 H 127 H Random Glucose Calcium Phosphorus Magnesium Albumin Ur Strep pneumoniae Ag Not Detected 03/31/23 03/31/23 03/31/23 07:12 07:26 07:35 Hold Purple Top SEE NOTE Anion Gap 12 Estim Creat Clear Calc 111.1 Estimated GFR > 60 POC Glucose 132 H Random Glucose 134 H Calcium 8.6 Phosphorus 3.0 Magnesium 2.0 Albumin 2.6 L Ur Strep pneumoniae Ag 03/31/23 11:04 Hold Purple Top Anion Gap Estim Creat Clear Calc Estimated GFR POC Glucose 163 H Random Glucose Calcium Phosphorus Magnesium Albumin Ur Strep pneumoniae Ag Assessment and Plan (1) Aspiration into lower respiratory tract: Status: Acute (2) Hypoxia: Status: Acute (3) COVID-19: Status: Acute (4) Hypokalemia: Status: Acute Plan 72 year old male with history of cognitive and neurobehavior dysfunction, seizure desorder here with acute hypoxic resp failure, aspiration pneumonitis and Covid Acute hypoxic respiratory failure due to covid-- hypoxia resolved, on RA 95%, not on dexamethasone strep antigen not detected and legionella antigen pending ,nasal mrsa swab positive. blood culture neg@48hr ,procalcitonin 0.06 Sepsis due to aspiration pneumonia continue IV Zosyn day 6/7 Metabolic Encephalopathy due to acute illness resolved Hypernatremia resolved Dysphagia continue parenteral nutrition IV PPN started on (03/27/23).seen by speech therapy they recommend npo diet today , if patient remains NPO will discuss with guardian regarding G-tube. due to poor IV access and continued PPN and electrolyte replacement, ordered midline. hypokalemia : repleted mild bradycardia : resolved ,atenolol restarted stable vitals hypothyriodism- tsh elevated ,Free t4-normal, continue levothyroxine Pressure (decubitus) ulcer/injury coccyx Stage 2: continue position change,iv PPN Seizure disorder on IV Depakote atypical depressive disorder/ Neuro Behavioral dysfunction continue home medications patient is resident of [facility] and has a guardian DVT prophylaxis: Heparin Full code ongoing hospitlization need:treatement of sepsis due to pneuomina, on IV PPN due to dysphagia. Time Spent With Patient Time: Total time managing care of this patient today ____ minutes. Quality Stroke Does the patient have a stroke diagnosis?: No VTE Prior VTE?: No VTE Risk Level:: Medical - moderate - high VTE Device Contraindication: Treatment Not Indicated VTE Drug Contraindication: N/A - Med Ordered
[2023-03-31 15:23] VITALS: BP 114/67; PULSE 89; RESP 18; TEMP 36.2; O2SAT 94
[2023-03-31 16:35] LABS: Glucose, Whole Blood 133 mg/dL (60-115)
[2023-03-31] MEDS: 0.9 % Sodium Chloride Flush 3 ML SYRINGE IVFLUSH ×2 (16:54→22:50)
[2023-03-31] MEDS: Heparin Sodium,Porcine 5,000 UNIT/ML VIAL 5000 UNIT SUBCUT ×2 (16:54→22:50)
[2023-03-31 20:00] VITALS: BP 134/85; PULSE 102; RESP 24; TEMP 36.5; O2SAT 96
[2023-03-31 20:52] LABS: Glucose, Whole Blood 124 mg/dL (60-115)
[2023-03-31] MEDS: Piperacillin Sodium/Tazobactam 4.5 GM in 0.9 % Sodium Chloride 100 ML IV (22:44)
[2023-03-31] MEDS: Mirtazapine 30 MG TABLET PO (22:49)
[2023-03-31 23:23] VITALS: BP 111/74; PULSE 98; RESP 20; TEMP 36.9; O2SAT 95
[2023-03-31] MEDS: Valproic Acid (as Sodium Salt) 500 MG in Dextrose 5 % 50 ML 55 MG IV (23:53)
[2023-04-01 03:37] VITALS: BP 140/66; PULSE 102; RESP 20; TEMP 36.4; O2SAT 95
[2023-04-01] MEDS: Piperacillin Sodium/Tazobactam 4.5 GM in 0.9 % Sodium Chloride 100 ML IV ×4 (05:15→19:54)
[2023-04-01 08:00] VITALS: BP 102/65; PULSE 96; RESP 18; TEMP 36.4; O2SAT 96
[2023-04-01] MEDS: Heparin Sodium,Porcine 5,000 UNIT/ML VIAL 5000 UNIT SUBCUT ×3 (09:02→23:21)
[2023-04-01] MEDS: 0.9 % Sodium Chloride Flush 3 ML SYRINGE IVFLUSH ×3 (09:02→19:56)
[2023-04-01] MEDS: Levothyroxine Sodium 25 MCG TABLET PO (09:03)
[2023-04-01] MEDS: Sertraline HCL 25 MG TABLET PO (09:03)
--- NOTE | 2023-04-01 10:10 | MHC.CLN ---
F/U REVIEWED LABS DISCUSSED WITH PHARMACY CENTRAL MELT SPECIALIST RECOMMENDED NPO CONTINUE PPN AT MAX GOAL RATE 75ML/HR PROVIDES 1848 TOTAL KCALS FROM FORMULA AND LIPIDS (28KCALS/KG), 77G PROTEIN (1.2G/KG), 180G DEXTROSE WITH 93G LIPIDS REPLETE LYTES NEEDED PPN WILL PROMOTE WOUND HEALING
[2023-04-01 10:51] LABS: Anion Gap 13 (12-20); Blood Urea Nitrogen 13 mg/dL (9-16); Calcium 8.5 mg/dL (8.4-10.2); Carbon Dioxide 20 mmol/L (22-29); Chloride 108 mmol/L (96-108); Creatinine Clr Calc Pharmacy 109.1; Estimated Glomerular Filt Rate > 60; Glucose Random 137 mg/dL (60-115); Magnesium 2.2 mg/dL (1.6-2.6); Potassium 3.9 mmol/L (3.3-5.1); Sodium 137 mmol/L (135-145)
[2023-04-01 11:01] LABS: Glucose, Whole Blood 122 mg/dL (60-115)
[2023-04-01] MEDS: Valproic Acid (as Sodium Salt) 500 MG in Dextrose 5 % 50 ML 55 MG IV ×2 (11:06→21:59)
[2023-04-01 11:31] LABS: Glucose, Whole Blood 138 mg/dL (60-115)
[2023-04-01 11:43] VITALS: BP 117/66; PULSE 89; RESP 18; TEMP 36.9; O2SAT 94
--- NOTE | 2023-04-01 12:51 | MHC.CM.PN ---
Addendum entered by Sonal Fields 04/02/23 09:32: 04/02 0927am, left VM for guardian, awaiting return call Original Note: Left w/ guardian in regards to status @ [facility]- awaiting return phone call.
--- NOTE | 2023-04-01 13:03 | P.PNIM_ITS ---
Subjective Subjective Date of Service: 04/01/23 Interval History: Looks frail and weak, weak cough, mid line inserted this morning, failed swallow eval Physical Exam 2 Vital Signs: Vital Signs: Last Vital Signs Temp 98.4 F 04/01/23 11:43 Pulse 89 04/01/23 11:43 Resp 18 04/01/23 11:43 BP 117/66 04/01/23 11:43 Pulse Ox 94 04/01/23 11:43 O2 Del Method Room Air 04/01/23 11:43 O2 Flow Rate 2 03/30/23 08:00 Oxygen Flow Rate 4 03/25/23 00:10 BMI result Body Mass Index 22.1 Const: Other: General awake alert, coughing,in no acute distress. Neck supple no JVD. CVS regular rate rhythm, Respiratory lungs clear to auscultation, few rhonchi, no respiratory distress, no wheeze, Gastrointestinal abdomen soft, non tender, bowel sounds audible, no guarding , no rigidity. Extremities no edema, Neuro nonfocal ,speech clear, verbalized minimally. Skin no rash Objective Data Active Medications Acetaminophen (Acetaminophen Supp 650 Mg Supp.Rect) 650 mg MT Q6H PRN PRN Reason: Fever Last Admin: 03/24/23 22:28 Dose: 650 mg Documented By: ZAIRA Acetaminophen (Acetaminophen Supp 650 Mg Supp.Rect) 650 mg MT Q6H PRN PRN Reason: Pain, Mild (Pain Scale 1-3) Atenolol (Atenolol 25 Mg Tablet) 25 mg PO DAILY [facility]; Protocol Last Admin: 04/01/23 09:12 Dose: Not Given Documented By: GARCÍA Non-Admin Reason: NPO Atorvastatin Calcium (Atorvastatin Calcium 10 Mg Tablet) 10 mg PO DAILY [facility] Last Admin: 03/26/23 08:44 Dose: 10 mg Documented By: ROBERT Guaifenesin (Guaifenesin 200 Mg/10 Ml 10 Ml Liquid) 10 ml PO Q4H PRN PRN Reason: Cough Last Admin: 03/28/23 09:25 Dose: 10 ml Documented By: ROBERT Heparin Sodium (Porcine) (Heparin Sodium,Porcine 5,000 Unit/Ml Vial) 5,000 unit SUBCUT Q8H [facility] Last Admin: 04/01/23 09:02 Dose: 5,000 unit Documented By: GARCÍA Hydroxyzine HCl (Hydroxyzine Hcl 25 Mg Tablet) 25 mg PO BEDTIME PRN PRN Reason: Itching Piperacillin Sod/Tazobactam (Sod 4.5 gm/ Sodium Chloride) 100 mls @ 200 mls/hr IV Q6H [facility] Last Infusion: 04/01/23 11:02 Dose: Infused Documented By: GARCÍA Valproic Acid 500 mg/ Dextrose 55 mls @ 55 mls/hr IV Q12H [facility] Last Admin: 04/01/23 11:06 Dose: 55 mls/hr Documented By: GARCÍA Nutrition (Parenteral) (Parenteral Nutrition) 1,800 mls @ 75 mls/hr IV .Q24H [facility]; Protocol Stop: 04/01/23 20:59 Last Admin: 04/01/23 01:14 Dose: 75 mls/hr Documented By: ANAIS Nutrition (Parenteral) (Parenteral Nutrition) 1,800 mls @ 75 mls/hr IV .Q24H [facility]; Protocol Stop: 04/02/23 20:59 Levothyroxine Sodium (Levothyroxine Sodium 25 Mcg Tablet) 25 mcg PO DAILY@0600 [facility] Last Admin: 04/01/23 09:03 Dose: 25 mcg Documented By: GARCÍA Memantine (Memantine Hcl 5 Mg Tablet) 5 mg PO DAILY [facility] Last Admin: 04/01/23 09:12 Dose: Not Given Documented By: GARCÍA Non-Admin Reason: NPO Mirtazapine (Mirtazapine 30 Mg Tablet) 30 mg PO BEDTIME [facility] Last Admin: 03/31/23 22:49 Dose: 30 mg Documented By: ANAIS Sertraline HCl (Sertraline Hcl 25 Mg Tablet) 25 mg PO DAILY [facility] Last Admin: 04/01/23 09:03 Dose: 25 mg Documented By: GARCÍA Sodium Chloride (0.9 % Sodium Chloride Flush 3 Ml Syringe) 3 ml IVFLUSH QSHIFT [facility] Last Admin: 04/01/23 09:02 Dose: 3 ml Documented By: GARCÍA Labs 03/28/23 06:26 04/01/23 10:13 Labs: Laboratory Results - last 24 hr 03/31/23 03/31/23 04/01/23 16:29 20:44 08:34 Anion Gap Estim Creat Clear Calc Estimated GFR POC Glucose 133 H 124 H 122 H Random Glucose Calcium Phosphorus Magnesium 04/01/23 04/01/23 10:13 11:12 Anion Gap 13 Estim Creat Clear Calc 109.1 Estimated GFR > 60 POC Glucose 138 H Random Glucose 137 H Calcium 8.5 Phosphorus 3.0 Magnesium 2.2 Assessment and Plan (1) COVID-19: Status: Acute (2) Aspiration into lower respiratory tract: Status: Acute Plan 72 year old male with history of cognitive and neurobehavior dysfunction, seizure desorder here with acute hypoxic resp failure, aspiration pneumonitis and Covid Acute hypoxic respiratory failure due to covid-- hypoxia resolved, on RA 95%, not on dexamethasone strep antigen not detected and legionella antigen pending ,nasal mrsa swab positive. blood culture neg@48hr ,procalcitonin 0.06 Sepsis due to aspiration pneumonia continue IV Zosyn day 12/25, stop after today Metabolic Encephalopathy due to acute illness resolved Hypernatremia resolved Dysphagia continue parenteral nutrition IV PPN started on (03/27/23).seen by speech therapy they recommend npo diet today , if patient remains NPO will discuss with guardian regarding G-tube. due to poor IV access and continued PPN and electrolyte replacement,midline inserted 04/01 hypokalemia : repleted and resolved mild bradycardia : resolved ,atenolol restarted, stable vitals hypothyriodism- tsh elevated ,Free t4-normal, continue levothyroxine Pressure (decubitus) ulcer/injury coccyx Stage 2: continue position change,iv PPN Seizure disorder on IV Depakote until able to take PO atypical depressive disorder/ Neuro Behavioral dysfunction continue home medications patient is resident of [facility] and has a guardian DVT prophylaxis: Heparin Full code ongoing hospitlization need:treatement of sepsis due to pneuomina, on IV PPN due to dysphagia. Time Spent With Patient Time: Total time managing care of this patient today ____ minutes. Quality Stroke Does the patient have a stroke diagnosis?: No VTE Prior VTE?: No VTE Risk Level:: Medical - moderate - high VTE Device Contraindication: Treatment Not Indicated VTE Drug Contraindication: N/A - Med Ordered
[2023-04-01 15:29] VITALS: BP 137/75; PULSE 90; RESP 18; TEMP 36.4; O2SAT 98
--- NOTE | 2023-04-01 15:37 | MHC.CM.PN ---
This CM called and spoke with guardian Chelsea to check on status of pts balance at [facility]. Chelsea states that she called [employer] last week and has not received a return call from them. Chelsea stated that [employer] [employer] was supposed to contact the attorneys to pursue full extension/permission to be placed. Chelsea stated that the pt has funds but she needs to get them transferred. Chelsea directed this CM to call the attorneys in [place] at [phone] for more information. CM director updated.
[2023-04-01 16:17] LABS: Glucose, Whole Blood 132 mg/dL (60-115)
--- NOTE | 2023-04-01 16:27 | MHC.SL.SWA ---
Speech Pathologist Impression: Risk of Aspiration Due to: Neurological Condition Reduced Cognition Dysphasia Diet Status: Recommend continued NPO with PO trials with BUSINESS DEVELOPMENT ASSISTANT. Liquid Consistency and Strategies for Safe Swallow: Liquid Intake Recommendation: NPO Liquid Intake Strategies: Solid Food Consistency: Dietary Recommendations: NPO Additional Modifications to Solid Foods: Oral Medication Intake: NPO Please contact the pharmacy regarding appropriate crushable or liquid drug formulations that are available whenever modified delivery is recommended. Compensatory Strategies and Precautions to be Taken for Safe Swallow: Sitting Upright (90 deg) Supervision While Eating and Drinking for Safe Swallow: PO with BUSINESS DEVELOPMENT ASSISTANT Foods to Avoid: Swallowing Recommended Treatments: Compens. Strategy Educat. Recommendation for Speech: Inpatient Speech Therapy Comment: Patient seen for repeat assessment. Per BUSINESS DEVELOPMENT ASSISTANT yesterday, recommended NPO due to inconsistent swallow, pocketing food, RN report of difficulty with feeding and medicating patient. Patient is not NPO in [place] this a.m., NPO noted on white board in room, and RN reported tray held, patient not being fed. RN again reported to this property underwriter that Patient pocketed meds in puree for prolonged period, needed extensive cuing and encouragement to swallow, estimated that only half of meds were taken orally due to difficulty. Pt currently with PPN. Tray was in room upon entry, but untouched, patient was awake though with eyes closed, was repetitively coughing, producing an unproductive cough throughout. Head of bed was adjusted, patient was asked to open eyes, but did not respond. Patient was offered ice cream, accepting 1/2 tsp amount, with patient producing some chewing, delayed oral phase, followed by 3-4 second delay before initiating swallow. Laryngeal elevation was reduced. On second presentation, longer delay before initiating swallow noted, some wavering movement of hyoid noted during delay, with swallow after approx 5 second delay. Patient then shook head no to more ice cream. Patient given trace amount of water by spoon, produced a more timely oral phase, mild delay of swallow. On second tsp, patient produced a more prolonged delay of swallow, then coughed/spluttered on water. Patient then given tsp amounts of NT juice, with patient again with mild delay of oral phase, mild delay on first swallow with initiation. ON second swallow, some oral holding noted, longer delay initiating swallow, with minimal pumping motion of hyoid noted, followed by swallow. Patient then declined any more trials. Patient continues to present with a Moderate Oral Pharyngeal Dysphagia as well as behavioral component of avoiding/delaying swallow/pocketing. Recommend continued NPO with PO trials with BUSINESS DEVELOPMENT ASSISTANT. , RD notified of recommendation by secure text, RN in person. [ End ] Frequency/Duration: M-F while inpatient. Date Range for Service Req: Timeline to reassess: Adjunct Lecturer Clinican/Clinical Fellow: No Supervisory Statement: I have reviewed and agree with the student/clinical fellow's documentation: N/A Speech Language Pathologist: Michelle Moreno M.A., CCC-BUSINESS DEVELOPMENT ASSISTANT
--- NOTE | 2023-04-01 17:49 | HO.MIDLINE ---
Midline Insertion MIDLINE INSERTION Diagnosis: failed swallow evaluation Indication: [PPN/ electrolytes] Pertinent Labs: [Reviewed] Technique: Using sterile technique including cap and mask, glove and drape, the arm was prepped and draped in the usual sterile fashion of full barrier technique with [facility]. Using ultrasound guidance, left basilic vein access was obtained . #20g x 8cm Powerglide ST midline was positioned. The procedure was performed in room 272. Ultrasound was used to document vein patency and for needle entry. A formal ultrasound picture was recorded. Vascular Annual Greenhouse Manager has released the line for use and it is currently dressed with a StatLock, Tegaderm, and CHG disc. Verification has been performed for blood return and line patency. Arm Circumference: 28cm Equipment:Powerglide ST midline catheter Catheter Type: #20g x 8cm Lot #: [id number]
[2023-04-01 20:00] VITALS: BP 163/88; PULSE 96; RESP 16; TEMP 36.3; O2SAT 96
[2023-04-01 20:43] LABS: Glucose, Whole Blood 128 mg/dL (60-115)
[2023-04-01] MEDS: Parenteral Nutrition 1,800 ML 75 ML IV (21:59)
[2023-04-02] VITALS: BP 131/67; PULSE 89; RESP 20; TEMP 36.2; O2SAT 100
[2023-04-02] MEDS: Piperacillin Sodium/Tazobactam 4.5 GM in 0.9 % Sodium Chloride 100 ML IV ×4 (01:19→19:40)
[2023-04-02 03:51] VITALS: BP 127/93; PULSE 85; RESP 20; TEMP 36.1; O2SAT 99
[2023-04-02 08:00] VITALS: BP 123/75; PULSE 88; RESP 20; TEMP 36; O2SAT 94
[2023-04-02 08:41] LABS: Glucose, Whole Blood 121 mg/dL (60-115)
[2023-04-02 09:10] LABS: Anion Gap 12 (12-20); Blood Urea Nitrogen 9 mg/dL (9-16); Calcium 8.5 mg/dL (8.4-10.2); Carbon Dioxide 22 mmol/L (22-29); Chloride 106 mmol/L (96-108); Creatinine Clr Calc Pharmacy 119.6; Estimated Glomerular Filt Rate > 60; Glucose Random 124 mg/dL (60-115); Magnesium 2.1 mg/dL (1.6-2.6); Phosphorus 3.2 mg/dL (2.7-4.5); Potassium 4.2 mmol/L (3.3-5.1); Sodium 136 mmol/L (135-145)
[2023-04-02 10:20] LABS: Triglycerides 169 mg/dL (<150)
--- NOTE | 2023-04-02 10:29 | MHC.CLN ---
F/U REVIEWED LABS DISCUSSED WITH PHARMACY PT CONTINUES WITH NPO STATUS CONTINUE PPN AT MAX GOAL RATE 75ML/HR PROVIDES 1848 TOTAL KCALS FROM FORMULA AND LIPIDS (28KCALS/KG), 77G PROTEIN (1.2G/KG), 180G DEXTROSE WITH 93G LIPIDS (1.4G/KG) REPLETE LYTES NEEDED PPN WILL PROMOTE WOUND HEALING CONTINUE PPN AT GOAL RATE THROUGH WEEKEND RD CAN BE REACHED VIA TIGER CONNECT IF NEEDED DURING OFF HOURS
[2023-04-02] MEDS: Heparin Sodium,Porcine 5,000 UNIT/ML VIAL 5000 UNIT SUBCUT ×2 (11:28→17:59)
[2023-04-02] MEDS: 0.9 % Sodium Chloride Flush 3 ML SYRINGE IVFLUSH ×2 (11:29→17:57)
--- NOTE | 2023-04-02 11:45 | HO.PM.IMPN ---
Subjective Subjective Date of Service: 04/02/23 Interval History: Looks frail and weak, failed NPO again yesterday, no respiratory issue Physical Exam Vital Signs: Vital Signs: Last Vital Signs Temp 96.8 F 04/02/23 08:00 Pulse 88 04/02/23 08:00 Resp 20 04/02/23 08:00 BP 123/75 04/02/23 08:00 Pulse Ox 94 04/02/23 08:00 O2 Del Method Room Air 04/02/23 08:00 O2 Flow Rate 2 03/30/23 08:00 Oxygen Flow Rate 4 03/25/23 00:10 BMI result Body Mass Index 22.1 Const: Other: General awake alert, but not conversing Neck supple no JVD. CVS regular rate rhythm, Respiratory lungs clear to auscultation, few rhonchi, no respiratory distress, no wheeze, Gastrointestinal abdomen soft, non tender, bowel sounds audible, no guarding , no rigidity. Extremities no edema, Neuro nonfocal ,speech clear, verbalized minimally. Skin no rash Objective Data Active Medications Acetaminophen (Acetaminophen Supp 650 Mg Supp.Rect) 650 mg [place] Q6H PRN PRN Reason: Fever Last Admin: 03/24/23 22:28 Dose: 650 mg Documented By: ZAIRA Acetaminophen (Acetaminophen Supp 650 Mg Supp.Rect) 650 mg [place] Q6H PRN PRN Reason: Pain, Mild (Pain Scale 1-3) Atenolol (Atenolol 25 Mg Tablet) 25 mg PO DAILY [facility]; Protocol Last Admin: 04/02/23 11:29 Dose: Not Given Documented By: GARCÍA Non-Admin Reason: NPO Atorvastatin Calcium (Atorvastatin Calcium 10 Mg Tablet) 10 mg PO DAILY [facility] Last Admin: 03/26/23 08:44 Dose: 10 mg Documented By: ROBERT Guaifenesin (Guaifenesin 200 Mg/10 Ml 10 Ml Liquid) 10 ml PO Q4H PRN PRN Reason: Cough Last Admin: 03/28/23 09:25 Dose: 10 ml Documented By: ROBERT Heparin Sodium (Porcine) (Heparin Sodium,Porcine 5,000 Unit/Ml Vial) 5,000 unit SUBCUT Q8H [facility] Last Admin: 04/02/23 11:28 Dose: 5,000 unit Documented By: GARCÍA Hydroxyzine HCl (Hydroxyzine Hcl 25 Mg Tablet) 25 mg PO BEDTIME PRN PRN Reason: Itching Piperacillin Sod/Tazobactam (Sod 4.5 gm/ Sodium Chloride) 100 mls @ 200 mls/hr IV Q6H [facility] Last Admin: 04/02/23 11:30 Dose: 100 mls/hr Documented By: GARCÍA Valproic Acid 500 mg/ Dextrose 55 mls @ 55 mls/hr IV Q12H [facility] Last Infusion: 04/01/23 23:18 Dose: Infused Documented By: SANTOSH Nutrition (Parenteral) (Parenteral Nutrition) 1,800 mls @ 75 mls/hr IV .Q24H [facility]; Protocol Stop: 04/02/23 20:59 Last Infusion: 04/02/23 11:30 Dose: 0 mls/hr Documented By: GARCÍA Nutrition (Parenteral) (Parenteral Nutrition) 1,800 mls @ 75 mls/hr IV .Q24H [facility]; Protocol Stop: 04/03/23 20:59 Levothyroxine Sodium (Levothyroxine Sodium 25 Mcg Tablet) 25 mcg PO DAILY@0600 [facility] Last Admin: 04/01/23 09:03 Dose: 25 mcg Documented By: GARCÍA Memantine (Memantine Hcl 5 Mg Tablet) 5 mg PO DAILY [facility] Last Admin: 04/02/23 11:29 Dose: Not Given Documented By: GARCÍA Non-Admin Reason: NPO Mirtazapine (Mirtazapine 30 Mg Tablet) 30 mg PO BEDTIME [facility] Last Admin: 04/01/23 21:53 Dose: Not Given Documented By: SANTOSH Non-Admin Reason: NPO Pharmacy Consult (Consult Rx Parenteral Nutrition Ordering) 1 each MISCELLANE DAILY PRN PRN Reason: Consult order Sertraline HCl (Sertraline Hcl 25 Mg Tablet) 25 mg PO DAILY [facility] Last Admin: 04/02/23 11:29 Dose: Not Given Documented By: GARCÍA Non-Admin Reason: NPO Sodium Chloride (0.9 % Sodium Chloride Flush 3 Ml Syringe) 3 ml IVFLUSH QSHIFT [facility] Last Admin: 04/02/23 11:29 Dose: 3 ml Documented By: GARCÍA Labs 03/28/23 06:26 04/02/23 08:08 Labs: Laboratory Results - last 24 hr 04/01/23 04/01/23 04/02/23 16:13 20:29 08:08 Hold Purple Top SEE NOTE Anion Gap 12 Estim Creat Clear Calc 119.6 Estimated GFR > 60 POC Glucose 132 H 128 H Random Glucose 124 H Calcium 8.5 Phosphorus 3.2 Magnesium 2.1 Triglycerides 169 H 04/02/23 08:26 Hold Purple Top Anion Gap Estim Creat Clear Calc Estimated GFR POC Glucose 121 H Random Glucose Calcium Phosphorus Magnesium Triglycerides Assessment and Plan (1) Hypokalemia: Status: Acute (2) Aspiration into lower respiratory tract: Status: Acute (3) COVID-19: Status: Acute Plan 72 year old male with history of cognitive and neurobehavior dysfunction, seizure desorder here with acute hypoxic resp failure, aspiration pneumonitis and Covid Acute hypoxic respiratory failure due to covid-- hypoxia resolved, on RA 95%, not on dexamethasone strep antigen not detected and legionella antigen pending ,nasal mrsa swab positive. blood culture neg@48hr ,procalcitonin 0.06 Sepsis due to aspiration pneumonia continue IV Zosyn day 12/25, stop after today Metabolic Encephalopathy due to acute illness and underlying cognitive desorder, appear to be at baseline Hypernatremia resolved Dysphagia continue parenteral nutrition IV PPN started on (03/27/23). He continues to faily swallow eval so keep NPO. Continue TPN for now. Discussed with guardian about obtaining a PEG, guardian thinks that will require court order, I don't seem to think so, will investigate further. hypokalemia : repleted and resolved mild bradycardia : resolved ,atenolol restarted, stable vitals hypothyriodism- tsh elevated ,Free t4-normal, continue levothyroxine Pressure (decubitus) ulcer/injury coccyx Stage 2: continue position change,iv PPN Seizure disorder on IV Depakote until able to take PO atypical depressive disorder/ Neuro Behavioral dysfunction continue home medications patient is resident of [facility] and has a guardian--Spoke to guardian Stephanie Singh [phone] about treatment plan, code status to be reconsider to DNR by court one? DVT prophylaxis: Heparin Full code ongoing hospitlization need:treatement of sepsis due to pneuomina, on IV PPN due to dysphagia. Time Spent With Patient Time: Total time managing care of this patient today ____ minutes. Quality Stroke Does the patient have a stroke diagnosis?: No VTE Prior VTE?: No VTE Risk Level:: Medical - moderate - high VTE Device Contraindication: Treatment Not Indicated VTE Drug Contraindication: N/A - Med Ordered
[2023-04-02 11:46] LABS: Glucose, Whole Blood 121 mg/dL (60-115)
[2023-04-02 11:58] VITALS: BP 136/72; PULSE 97; RESP 19; TEMP 36.7; O2SAT 93
[2023-04-02] MEDS: Valproic Acid (as Sodium Salt) 500 MG in Dextrose 5 % 50 ML 55 MG IV ×2 (12:55→21:10)
--- NOTE | 2023-04-02 13:03 | MHC.SL.SWA ---
Speech Pathologist Impression: Risk of aspiration, oropharyngeal dysphagia Risk of Aspiration Due to: Neurological Condition Reduced Cognition Dysphasia Diet Status: NDD1/NTL Liquid Consistency and Strategies for Safe Swallow: Liquid Intake Recommendation: [place] Thick Liquid Intake Strategies: Small Sips No Straws Liquids by Teaspoon Only Solid Food Consistency: Dietary Recommendations: Pureed (NDD1) Additional Modifications to Solid Foods: Pt seen by GAS CONTROLLER for f/u this afternoon. Pt consumed bites of pudding, sips of water and nectar thickened juice by spoon. Pt w/ intermittent oral holding, some improved timeliness of oral transit as compared to previous visits, though it is still mildly to moderately delayed, moderate to significant delay in pharyngeal swallow. Pt was verbally cued by GAS CONTROLLER to swallow as needed. No overt s/s of aspiration with intake of PO this date. Trace oral residual was cleared with subsequent swallows. Discussed today's observations w/ MD as well as pt's hx of pocketing food. Per MD, pt will be started on conservative diet textures PUREED solids (NDD1) and NECTAR THICK liquids, pills CRUSHED in PUREE. Pt requires TOTAL 1:1 ASSISTANCE FEEDING, CLOSE monitoring and STRICT ASPIRATION PRECAUTIONS: administer one small bite/sip at a time (half-teaspoon), provide pt w/ cues as needed, check oral cavity between bites to ensure oral clearance, present dry spoon when needed to encourage dry swallow between bites, liquids via teaspoon only, upright 90 degree position during PO intake and for at least 30 minutes afterwards. Pt must be awake, alert, and engaging in meal. If pt exhibits any overt s/s of aspiration with PO intake, does not swallow despite cues, or does not attend to PO, HOLD TRAY, at which point a re-evaluation would be indicated. Given pt's impairments, concern lies in pt's ability to maintain adequate hydration and meet nutritional needs. Recommend consult w/ G.I./R.D. to assess candidacy for alternate means of nutrition. GAS CONTROLLER will continue to follow. Oral Medication Intake: Crushed with Puree Please contact the pharmacy regarding appropriate crushable or liquid drug formulations that are available whenever modified delivery is recommended. Compensatory Strategies and Precautions to be Taken for Safe Swallow: Sitting Upright (90 deg) Double Swallow No Straw Liquids from Spoon Small Bites and Sips Rate of Ingestion Change Oral Check Supervision While Eating and Drinking for Safe Swallow: Total Assistance (1:1) Swallowing Recommended Treatments: Compens. Strategy Educat. Recommendation for Speech: Inpatient Speech Therapy Frequency/Duration: M-F while inpatient. Date Range for Service Req: Timeline to reassess: Baggage Handling Supervisor Clinican/Clinical Fellow: No Supervisory Statement: I have reviewed and agree with the student/clinical fellow's documentation: N/A Speech Language Pathologist: Allyssa Nolasco M.A., CCC-GAS CONTROLLER
--- NOTE | 2023-04-02 14:50 | MHC.CM.PN ---
EMR REVIEWED, CM RECEIVED CALL FROM CM DIRECTOR WHO REPORTS SHE SPOKE W/PT'S GUARDIAN AND PT'S MONEY IS TIED UP IN AN INVESTMENT FUND, GUARDIAN WORKING ON HAVING THAT MONEY TRANSFERRED OUT OF FUND WHICH GUARDIAN REPORTS WILL TAKE ABOUT A WEEK AND A HALF, PLAN IS TO PAY TAMI LECHUGA THE $13,000 THAT IS OWED AND TO LOOK FOR LTC PLACEMENT ELSEWHERE. CM DIRECTOR ALSO REPORTS GUARDIAN IS UNSURE IF BEST PLAN IS TO MOVE FORWARD W/PEG TUBE AND WILL SPEAK W/HOSPITALIST TO DETERMINE IF PEG VS DNR/DNI/PLUGGING MACHINE OPERATOR IS MORE APPROPRIATE. [facility] VEHICLE OPERATOR WILL PETITION FOR EXPANSION OF GUARDIANSHIP W/RIGHT TO ADMIT VS RIGHT TO ADMIT AND CHANGE OF CODE STATUS ONCE DECISION IS MADE. CM WILL START NEW LTC BED SEARCH ON WEDNESDAY NO FACILITY WILL EXCEPT AND TAKE PT PRIOR TO TAMI LECHUGA BEING PAID. CM WILL CONT TO FOLLOW D/C NEEDS.
[2023-04-02 16:00] VITALS: BP 158/83; PULSE 94; RESP 18; TEMP 36.2; O2SAT 97
[2023-04-02 16:17] LABS: Glucose, Whole Blood 104 mg/dL (60-115)
[2023-04-02 19:12] VITALS: BP 137/75; PULSE 88; RESP 20; TEMP 36.5; O2SAT 95
[2023-04-02] MEDS: Parenteral Nutrition 1,800 ML 75 ML IV (21:19)
[2023-04-03] VITALS: BP 114/60; PULSE 93; RESP 20; TEMP 36.3; O2SAT 95
[2023-04-03 00:40] LABS: Glucose, Whole Blood 134 mg/dL (60-115)
[2023-04-03] MEDS: Heparin Sodium,Porcine 5,000 UNIT/ML VIAL 5000 UNIT SUBCUT ×4 (00:51→23:09)
[2023-04-03] MEDS: 0.9 % Sodium Chloride Flush 3 ML SYRINGE IVFLUSH ×4 (00:52→21:39)
[2023-04-03] MEDS: Piperacillin Sodium/Tazobactam 4.5 GM in 0.9 % Sodium Chloride 100 ML IV ×4 (02:44→21:36)
[2023-04-03 03:51] VITALS: BP 114/58; PULSE 89; RESP 20; TEMP 36.3; O2SAT 97
[2023-04-03 06:08] LABS: Glucose, Whole Blood 127 mg/dL (60-115)
--- NOTE | 2023-04-03 06:46 | PC.NURSE ---
pt refused AM lab draws
[2023-04-03 07:53] VITALS: BP 123/83; PULSE 94; RESP 18; TEMP 36.3; O2SAT 92
[2023-04-03] MEDS: Valproic Acid (as Sodium Salt) 500 MG in Dextrose 5 % 50 ML 55 MG IV ×2 (08:49→23:04)
[2023-04-03 09:37] LABS: Triglycerides 146 mg/dL (<150)
[2023-04-03 09:43] LABS: Anion Gap 11 (12-20); Blood Urea Nitrogen 8 mg/dL (9-16); Calcium 8.4 mg/dL (8.4-10.2); Carbon Dioxide 23 mmol/L (22-29); Chloride 108 mmol/L (96-108); Creatinine Clr Calc Pharmacy 119.6; Estimated Glomerular Filt Rate > 60; Glucose Random 125 mg/dL (60-115); Magnesium 2.3 mg/dL (1.6-2.6); Phosphorus 3.9 mg/dL (2.7-4.5); Potassium 4.2 mmol/L (3.3-5.1); Sodium 138 mmol/L (135-145)
[2023-04-03 11:35] VITALS: BP 117/80; PULSE 100; RESP 17; TEMP 36.2; O2SAT 97
--- NOTE | 2023-04-03 11:40 | HO.PM.IMPN ---
Subjective Subjective Date of Service: 04/03/23 Interval History: Looks frail and weak, failed NPO again yesterday, no respiratory issue Physical Exam Vital Signs: Vital Signs: Last Vital Signs Temp 97.1 F 04/03/23 11:35 Pulse 100 04/03/23 11:35 Resp 17 04/03/23 11:35 BP 117/80 04/03/23 11:35 Pulse Ox 97 04/03/23 11:35 O2 Del Method Room Air 04/03/23 11:35 O2 Flow Rate 2 03/30/23 08:00 Oxygen Flow Rate 4 03/25/23 00:10 BMI result Body Mass Index 22.1 Const: Other: General awake alert, but not conversing Neck supple no JVD. CVS regular rate rhythm, Respiratory lungs clear to auscultation, few rhonchi, no respiratory distress, no wheeze, Gastrointestinal abdomen soft, non tender, bowel sounds audible, no guarding , no rigidity. Extremities no edema, Neuro nonfocal ,speech clear, verbalized minimally. Skin no rash Objective Data Active Medications Acetaminophen (Acetaminophen Supp 650 Mg Supp.Rect) 650 mg [place] Q6H PRN PRN Reason: Fever Last Admin: 03/24/23 22:28 Dose: 650 mg Documented By: ZAIRA Acetaminophen (Acetaminophen Supp 650 Mg Supp.Rect) 650 mg [place] Q6H PRN PRN Reason: Pain, Mild (Pain Scale 1-3) Atenolol (Atenolol 25 Mg Tablet) 25 mg PO DAILY [facility]; Protocol Last Admin: 04/03/23 08:47 Dose: Not Given Documented By: CHRISTIANO Non-Admin Reason: NPO Atorvastatin Calcium (Atorvastatin Calcium 10 Mg Tablet) 10 mg PO DAILY [facility] Last Admin: 03/26/23 08:44 Dose: 10 mg Documented By: ROBERT Dextrose (Dextrose 50 % 25 Gm/50 Ml Syringe) 25 gm IVPUSH Q15M PRN; Protocol PRN Reason: per Hypoglycemia Standing Ord. Glucose (Glucose Gel 15 Gm Gel..Gram.) 15 gm PO Q15M PRN; Protocol PRN Reason: per Hypoglycemia Standing Ord. Guaifenesin (Guaifenesin 200 Mg/10 Ml 10 Ml Liquid) 10 ml PO Q4H PRN PRN Reason: Cough Last Admin: 03/28/23 09:25 Dose: 10 ml Documented By: ROBERT Heparin Sodium (Porcine) (Heparin Sodium,Porcine 5,000 Unit/Ml Vial) 5,000 unit SUBCUT Q8H [facility] Last Admin: 04/03/23 08:49 Dose: 5,000 unit Documented By: CHRISTIANO Hydroxyzine HCl (Hydroxyzine Hcl 25 Mg Tablet) 25 mg PO BEDTIME PRN PRN Reason: Itching Piperacillin Sod/Tazobactam (Sod 4.5 gm/ Sodium Chloride) 100 mls @ 200 mls/hr IV Q6H [facility] Last Infusion: 04/03/23 09:53 Dose: Infused Documented By: CHRISTIANO Valproic Acid 500 mg/ Dextrose 55 mls @ 55 mls/hr IV Q12H [facility] Last Infusion: 04/03/23 09:53 Dose: Infused Documented By: CHRISTIANO Nutrition (Parenteral) (Parenteral Nutrition) 1,800 mls @ 75 mls/hr IV .Q24H [facility]; Protocol Stop: 04/03/23 20:59 Last Admin: 04/02/23 21:19 Dose: 75 mls/hr Documented By: NITO Nutrition (Parenteral) (Parenteral Nutrition) 1,800 mls @ 75 mls/hr IV .Q24H [facility]; Protocol Stop: 04/04/23 20:59 Insulin Human Lispro (Insulin Lispro 100 Unit/Ml 3 Ml Vial) 0 unit SUBCUT Q6H [facility]; Protocol Last Admin: 04/03/23 06:09 Dose: Not Given Documented By: NITO Non-Admin Reason: No Insulin Coverage Levothyroxine Sodium (Levothyroxine Sodium 25 Mcg Tablet) 25 mcg PO DAILY@0600 [facility] Last Admin: 04/03/23 06:07 Dose: Not Given Documented By: CARLOS ENRIQUE Non-Admin Reason: pt strict NPO Memantine (Memantine Hcl 5 Mg Tablet) 5 mg PO DAILY [facility] Last Admin: 04/03/23 08:47 Dose: Not Given Documented By: CHRISTIANO Non-Admin Reason: NPO Mirtazapine (Mirtazapine 30 Mg Tablet) 30 mg PO BEDTIME [facility] Last Admin: 04/02/23 19:54 Dose: Not Given Documented By: NITO Non-Admin Reason: NPO Pharmacy Consult (Consult Rx Parenteral Nutrition Ordering) 1 each MISCELLANE DAILY PRN PRN Reason: Consult order Sertraline HCl (Sertraline Hcl 25 Mg Tablet) 25 mg PO DAILY [facility] Last Admin: 04/03/23 08:47 Dose: Not Given Documented By: CHRISTIANO Non-Admin Reason: NPO Sodium Chloride (0.9 % Sodium Chloride Flush 3 Ml Syringe) 3 ml IVFLUSH QSHIFT [facility] Last Admin: 04/03/23 08:50 Dose: 3 ml Documented By: CHRISTIANO Labs 03/28/23 06:26 04/03/23 08:55 Labs: Laboratory Results - last 24 hr 04/02/23 04/02/23 04/03/23 11:38 16:10 00:33 Anion Gap Estim Creat Clear Calc Estimated GFR POC Glucose 121 H 104 134 H Random Glucose Calcium Phosphorus Magnesium Triglycerides 04/03/23 04/03/23 05:56 08:55 Anion Gap 11 L Estim Creat Clear Calc 119.6 Estimated GFR > 60 POC Glucose 127 H Random Glucose 125 H Calcium 8.4 Phosphorus 3.9 Magnesium 2.3 Triglycerides 146 Assessment and Plan (1) Hypokalemia: Status: Acute (2) Aspiration into lower respiratory tract: Status: Acute (3) COVID-19: Status: Acute Plan 72 year old male with history of cognitive and neurobehavior dysfunction, seizure desorder here with acute hypoxic resp failure, aspiration pneumonitis and Covid Acute hypoxic respiratory failure due to covid-- hypoxia resolved, on RA 95% Sepsis due to aspiration pneumonia--completed 7 days of Zosyn Metabolic Encephalopathy due to acute illness and underlying cognitive desorder, appear to be at baseline Hypernatremia resolved Dysphagia continue parenteral nutrition IV PPN started on (03/27/23). He continues to fail swallow eval so keep NPO. Ongoing discussion with guardian regarding PEG, that may required court action hypokalemia : repleted and resolved mild bradycardia : resolved ,atenolol restarted, stable vitals hypothyriodism- tsh elevated ,Free t4-normal, continue levothyroxine Pressure (decubitus) ulcer/injury coccyx Stage 2: continue position change,iv PPN Seizure disorder on IV Depakote until able to take PO atypical depressive disorder/ Neuro Behavioral dysfunction continue home medications patient is resident of [facility] and has a guardian--Spoke to guardian Stephanie Singh [phone] about treatment plan, code status to be reconsider to DNR by court--try to update today 04/03 no answer.. Should proceed with PEG one? DVT prophylaxis: Heparin Full code ongoing hospitlization need:treatement of sepsis due to pneuomina, on IV PPN due to dysphagia. Time Spent With Patient Time: Total time managing care of this patient today ____ minutes. Quality Stroke Does the patient have a stroke diagnosis?: No VTE Prior VTE?: No VTE Risk Level:: Medical - moderate - high VTE Device Contraindication: Treatment Not Indicated VTE Drug Contraindication: N/A - Med Ordered
[2023-04-03 11:53] LABS: Glucose, Whole Blood 115 mg/dL (60-115)
[2023-04-03 16:00] VITALS: BP 139/69; PULSE 97; RESP 20; TEMP 36.2; O2SAT 92
[2023-04-03 18:09] LABS: Glucose, Whole Blood 119 mg/dL (60-115)
[2023-04-03 20:00] VITALS: BP 128/68; PULSE 103; RESP 20; TEMP 36.3; O2SAT 90
[2023-04-03] MEDS: Parenteral Nutrition 1,800 ML 75 ML IV (21:33)
[2023-04-04] VITALS (7 sets, daily range): BP systolic 113–125; BP diastolic 63–77; PULSE 101–108; RESP 18–22; TEMP 36–36.7; O2SAT 92–98
[2023-04-04 00:39] LABS: Glucose, Whole Blood 134 mg/dL (60-115)
[2023-04-04 06:17] LABS: Glucose, Whole Blood 131 mg/dL (60-115)
[2023-04-04 08:10] LABS: Triglycerides 163 mg/dL (<150)
[2023-04-04 08:14] LABS: Anion Gap 13 (12-20); Blood Urea Nitrogen 9 mg/dL (9-16); Calcium 8.6 mg/dL (8.4-10.2); Carbon Dioxide 21 mmol/L (22-29); Chloride 106 mmol/L (96-108); Creatinine Clr Calc Pharmacy 117.4; Estimated Glomerular Filt Rate > 60; Glucose Random 128 mg/dL (60-115); Magnesium 2.2 mg/dL (1.6-2.6); Phosphorus 3.6 mg/dL (2.7-4.5); Potassium 4.2 mmol/L (3.3-5.1); Sodium 136 mmol/L (135-145)
[2023-04-04] MEDS: Heparin Sodium,Porcine 5,000 UNIT/ML VIAL 5000 UNIT SUBCUT ×2 (09:26→16:37)
[2023-04-04] MEDS: Levothyroxine Sodium 100 MCG/5 ML VIAL 12.5 MCG IVPUSH (09:26)
[2023-04-04] MEDS: 0.9 % Sodium Chloride Flush 3 ML SYRINGE IVFLUSH ×2 (09:26→16:37)
[2023-04-04 10:02] LABS: COVID-19 Test Positive (Negative); IDNOW Serial# BCCEAD1C
[2023-04-04] MEDS: Valproic Acid (as Sodium Salt) 500 MG in Dextrose 5 % 50 ML 55 MG IV ×2 (10:25→22:12)
--- NOTE | 2023-04-04 10:57 | HO.PM.IMPN ---
Subjective Subjective Date of Service: 04/04/23 Interval History: No new issues, respiratory statu sis stable Physical Exam Vital Signs: Vital Signs: Last Vital Signs Temp 97.0 F 04/04/23 07:48 Pulse 101 H 04/04/23 07:48 Resp 18 04/04/23 07:48 BP 125/77 04/04/23 07:48 Pulse Ox 92 04/04/23 07:48 O2 Del Method Room Air 04/04/23 07:48 O2 Flow Rate 2 03/30/23 08:00 Oxygen Flow Rate 4 03/25/23 00:10 BMI result Body Mass Index 22.1 Objective Data Active Medications Acetaminophen (Acetaminophen Supp 650 Mg Supp.Rect) 650 mg [place] Q6H PRN PRN Reason: Fever Last Admin: 03/24/23 22:28 Dose: 650 mg Documented By: ZAIRA Acetaminophen (Acetaminophen Supp 650 Mg Supp.Rect) 650 mg [place] Q6H PRN PRN Reason: Pain, Mild (Pain Scale 1-3) Atenolol (Atenolol 25 Mg Tablet) 25 mg PO DAILY [facility]; Protocol Last Admin: 04/04/23 09:27 Dose: Not Given Documented By: WINNIE Non-Admin Reason: NPO Atorvastatin Calcium (Atorvastatin Calcium 10 Mg Tablet) 10 mg PO DAILY [facility] Last Admin: 03/26/23 08:44 Dose: 10 mg Documented By: ROBERT Dextrose (Dextrose 50 % 25 Gm/50 Ml Syringe) 25 gm IVPUSH Q15M PRN; Protocol PRN Reason: per Hypoglycemia Standing Ord. Glucose (Glucose Gel 15 Gm Gel..Gram.) 15 gm PO Q15M PRN; Protocol PRN Reason: per Hypoglycemia Standing Ord. Guaifenesin (Guaifenesin 200 Mg/10 Ml 10 Ml Liquid) 10 ml PO Q4H PRN PRN Reason: Cough Last Admin: 03/28/23 09:25 Dose: 10 ml Documented By: ROBERT Heparin Sodium (Porcine) (Heparin Sodium,Porcine 5,000 Unit/Ml Vial) 5,000 unit SUBCUT Q8H [facility] Last Admin: 04/04/23 09:26 Dose: 5,000 unit Documented By: WINNIE Hydroxyzine HCl (Hydroxyzine Hcl 25 Mg Tablet) 25 mg PO BEDTIME PRN PRN Reason: Itching Valproic Acid 500 mg/ Dextrose 55 mls @ 55 mls/hr IV Q12H [facility] Last Admin: 04/04/23 10:25 Dose: 55 mls/hr Documented By: WINNIE Nutrition (Parenteral) (Parenteral Nutrition) 1,800 mls @ 75 mls/hr IV .Q24H [facility]; Protocol Stop: 04/04/23 20:59 Last Admin: 04/03/23 21:33 Dose: 75 mls/hr Documented By: KIRSTY Insulin Human Lispro (Insulin Lispro 100 Unit/Ml 3 Ml Vial) 0 unit SUBCUT Q6H [facility]; Protocol Last Admin: 04/04/23 06:04 Dose: Not Given Documented By: KIRSTY Non-Admin Reason: No Insulin Coverage Comments: POC 131 Levothyroxine Sodium (Levothyroxine Sodium 100 Mcg/5 Ml Vial) 12.5 mcg IVPUSH DAILY@0600 [facility] Last Admin: 04/04/23 09:26 Dose: 12.5 mcg Documented By: WINNIE Memantine (Memantine Hcl 5 Mg Tablet) 5 mg PO DAILY [facility] Last Admin: 04/04/23 09:43 Dose: Not Given Documented By: WINNIE Non-Admin Reason: NPO Mirtazapine (Mirtazapine 30 Mg Tablet) 30 mg PO BEDTIME [facility] Last Admin: 04/03/23 21:36 Dose: Not Given Documented By: KIRSTY Non-Admin Reason: NPO Pharmacy Consult (Consult Rx Parenteral Nutrition Ordering) 1 each MISCELLANE DAILY PRN PRN Reason: Consult order Sertraline HCl (Sertraline Hcl 25 Mg Tablet) 25 mg PO DAILY [facility] Last Admin: 04/04/23 09:44 Dose: Not Given Documented By: WINNIE Non-Admin Reason: NPO Sodium Chloride (0.9 % Sodium Chloride Flush 3 Ml Syringe) 3 ml IVFLUSH QSHIFT [facility] Last Admin: 04/04/23 09:26 Dose: 3 ml Documented By: WINNIE Labs 03/28/23 06:26 04/04/23 07:27 Labs: Laboratory Results - last 24 hr 04/03/23 04/03/23 04/04/23 11:43 18:05 00:35 Anion Gap Estim Creat Clear Calc Estimated GFR POC Glucose 115 119 H 134 H Random Glucose Calcium Phosphorus Magnesium Triglycerides COVID-19 ([facility]) COVID-19 Clin Com 04/04/23 04/04/23 04/04/23 06:00 07:27 09:22 Anion Gap 13 Estim Creat Clear Calc 117.4 Estimated GFR > 60 POC Glucose 131 H Random Glucose 128 H Calcium 8.6 Phosphorus 3.6 Magnesium 2.2 Triglycerides 163 H COVID-19 ([facility]) Positive A COVID-19 Clin Com See Note Assessment and Plan (1) Hypokalemia: Status: Acute (2) Aspiration into lower respiratory tract: Status: Acute (3) COVID-19: Status: Acute Plan 72 year old male with history of cognitive and neurobehavior dysfunction, seizure desorder here with acute hypoxic resp failure, aspiration pneumonitis and Covid Acute hypoxic respiratory failure due to covid-- hypoxia resolved, on RA 95%, repeat covid if negative, stop isolation Sepsis due to aspiration pneumonia--completed 7 days of Zosyn Metabolic Encephalopathy due to acute illness and underlying cognitive desorder, appear to be at baseline Hypernatremia resolved Dysphagia continue parenteral nutrition IV PPN started on (03/27/23). He continues to fail swallow eval so keep NPO. Ongoing discussion with guardian regarding PEG, that may required court action hypokalemia : repleted and resolved mild bradycardia : resolved ,atenolol restarted, stable vitals hypothyriodism- tsh elevated ,Free t4-normal, continue levothyroxine Pressure (decubitus) ulcer/injury coccyx Stage 2: continue position change,iv PPN Seizure disorder on IV Depakote until able to take PO atypical depressive disorder/ Neuro Behavioral dysfunction continue home medications patient is resident [facility] and has a guardian--Spoke to guardian Stephanie Singh [phone] about treatment plan, code status to be reconsider to DNR by court--try to update today 04/03 no answer.. Should proceed with PEG one? DVT prophylaxis: Heparin Full code ongoing hospitlization need:treatement of sepsis due to pneuomina, on IV PPN due to dysphagia. Time Spent With Patient Time: Total time managing care of this patient today ____ minutes. Quality Stroke Does the patient have a stroke diagnosis?: No VTE Prior VTE?: No VTE Risk Level:: Medical - moderate - high VTE Device Contraindication: Treatment Not Indicated VTE Drug Contraindication: N/A - Med Ordered
[2023-04-04 11:45] LABS: Glucose, Whole Blood 141 mg/dL (60-115)
[2023-04-04 18:17] LABS: Glucose, Whole Blood 145 mg/dL (60-115)
[2023-04-04 20:21] LABS: Glucose, Whole Blood 143 mg/dL (60-115)
[2023-04-04] MEDS: Parenteral Nutrition 1,800 ML 75 ML IV (20:40)
[2023-04-05] MEDS: Heparin Sodium,Porcine 5,000 UNIT/ML VIAL 5000 UNIT SUBCUT ×4 (00:16→23:53)
[2023-04-05] MEDS: 0.9 % Sodium Chloride Flush 3 ML SYRINGE IVFLUSH ×4 (00:17→23:54)
[2023-04-05 00:18] LABS: Glucose, Whole Blood 119 mg/dL (60-115)
[2023-04-05 00:44] LABS: Legionella Ag Urine Not Detected (Not Detected)
[2023-04-05 03:48] VITALS: BP 128/64; PULSE 111; RESP 18; TEMP 36.6; O2SAT 94
[2023-04-05] MEDS: Levothyroxine Sodium 100 MCG/5 ML VIAL 12.5 MCG IVPUSH (05:49)
[2023-04-05 06:10] LABS: Glucose, Whole Blood 94 mg/dL (60-115)
--- NOTE | 2023-04-05 07:24 | PC.NURSE ---
Midline in left arm was disconnected overnight. Tubing to line snapped while patient care being performed . TPN was held d/t no access. Provider , quality control microbiology supervisor and oncoming RN notified.
[2023-04-05 08:00] VITALS: BP 122/69; PULSE 107; RESP 20; TEMP 36.7; O2SAT 95
[2023-04-05] MEDS: Valproic Acid (as Sodium Salt) 500 MG in Dextrose 5 % 50 ML 55 MG IV ×2 (08:25→21:08)
[2023-04-05 08:35] LABS: Triglycerides 114 mg/dL (<150)
[2023-04-05 08:45] LABS: Anion Gap 13 (12-20); Blood Urea Nitrogen 9 mg/dL (9-16); Calcium 8.4 mg/dL (8.4-10.2); Carbon Dioxide 23 mmol/L (22-29); Chloride 103 mmol/L (96-108); Creatinine Clr Calc Pharmacy 117.4; Estimated Glomerular Filt Rate > 60; Glucose Random 93 mg/dL (60-115); Magnesium 2.2 mg/dL (1.6-2.6); Phosphorus 3.7 mg/dL (2.7-4.5); Potassium 4.2 mmol/L (3.3-5.1); Sodium 135 mmol/L (135-145)
[2023-04-05 11:17] VITALS: BP 116/67; PULSE 101; RESP 20; TEMP 36.6; O2SAT 100
[2023-04-05 12:08] LABS: Glucose, Whole Blood 98 mg/dL (60-115)
--- NOTE | 2023-04-05 12:25 | P.PNIM_ITS ---
Subjective Subjective Date of Service: 04/05/23 Interval History: No new issues Physical Exam 2 Vital Signs: Vital Signs: Last Vital Signs Temp 97.9 F 04/05/23 11:17 Pulse 101 H 04/05/23 11:17 Resp 20 04/05/23 11:17 BP 116/67 04/05/23 11:17 Pulse Ox 100 04/05/23 11:17 O2 Del Method Room Air 04/05/23 11:17 O2 Flow Rate 2 03/30/23 08:00 Oxygen Flow Rate 4 03/25/23 00:10 BMI result Body Mass Index 22.1 Const: Other: General awake alert, but not conversing Neck supple no JVD. CVS regular rate rhythm, Respiratory lungs clear to auscultation, few rhonchi, no respiratory distress, no wheeze, Gastrointestinal abdomen soft, non tender, bowel sounds audible, no guarding , no rigidity. Extremities no edema, Neuro nonfocal ,speech clear, verbalized minimally. Skin decub ulcer 04/05 Objective Data Active Medications Acetaminophen (Acetaminophen Supp 650 Mg Supp.Rect) 650 mg [place] Q6H PRN PRN Reason: Fever Last Admin: 03/24/23 22:28 Dose: 650 mg Documented By: ZAIRA Acetaminophen (Acetaminophen Supp 650 Mg Supp.Rect) 650 mg [place] Q6H PRN PRN Reason: Pain, Mild (Pain Scale 1-3) Atenolol (Atenolol 25 Mg Tablet) 25 mg PO DAILY [facility]; Protocol Last Admin: 04/05/23 08:35 Dose: Not Given Documented By: MILVIA Non-Admin Reason: NPO Atorvastatin Calcium (Atorvastatin Calcium 10 Mg Tablet) 10 mg PO DAILY [facility] Last Admin: 03/26/23 08:44 Dose: 10 mg Documented By: ROBERT Dextrose (Dextrose 50 % 25 Gm/50 Ml Syringe) 25 gm IVPUSH Q15M PRN; Protocol PRN Reason: per Hypoglycemia Standing Ord. Glucose (Glucose Gel 15 Gm Gel..Gram.) 15 gm PO Q15M PRN; Protocol PRN Reason: per Hypoglycemia Standing Ord. Guaifenesin (Guaifenesin 200 Mg/10 Ml 10 Ml Liquid) 10 ml PO Q4H PRN PRN Reason: Cough Last Admin: 03/28/23 09:25 Dose: 10 ml Documented By: ROBERT Heparin Sodium (Porcine) (Heparin Sodium,Porcine 5,000 Unit/Ml Vial) 5,000 unit SUBCUT Q8H [facility] Last Admin: 04/05/23 08:38 Dose: 5,000 unit Documented By: MILVIA Hydroxyzine HCl (Hydroxyzine Hcl 25 Mg Tablet) 25 mg PO BEDTIME PRN PRN Reason: Itching Valproic Acid 500 mg/ Dextrose 55 mls @ 55 mls/hr IV Q12H [facility] Last Infusion: 04/05/23 09:38 Dose: Infused Documented By: MILVIA Nutrition (Parenteral) (Parenteral Nutrition) 1,800 mls @ 75 mls/hr IV .Q24H [facility]; Protocol Stop: 04/05/23 20:59 Last Admin: 04/04/23 20:40 Dose: 75 mls/hr Documented By: GRABIEL Nutrition (Parenteral) (Parenteral Nutrition) 1,800 mls @ 75 mls/hr IV .Q24H [facility]; Protocol Stop: 04/06/23 20:59 Insulin Human Lispro (Insulin Lispro 100 Unit/Ml 3 Ml Vial) 0 unit SUBCUT Q6H [facility]; Protocol Last Admin: 04/05/23 06:20 Dose: Not Given Documented By: GRABIEL Non-Admin Reason: No Insulin Coverage Levothyroxine Sodium (Levothyroxine Sodium 100 Mcg/5 Ml Vial) 12.5 mcg IVPUSH DAILY@0600 [facility] Last Admin: 04/05/23 05:49 Dose: 12.5 mcg Documented By: GRABIEL Memantine (Memantine Hcl 5 Mg Tablet) 5 mg PO DAILY [facility] Last Admin: 04/05/23 08:23 Dose: Not Given Documented By: MILVIA Non-Admin Reason: NPO Mirtazapine (Mirtazapine 30 Mg Tablet) 30 mg PO BEDTIME [facility] Last Admin: 04/04/23 21:54 Dose: Not Given Documented By: GRABIEL Non-Admin Reason: NPO Pharmacy Consult (Consult Rx Parenteral Nutrition Ordering) 1 each MISCELLANE DAILY PRN PRN Reason: Consult order Sertraline HCl (Sertraline Hcl 25 Mg Tablet) 25 mg PO DAILY [facility] Last Admin: 04/05/23 08:23 Dose: Not Given Documented By: MILVIA Non-Admin Reason: NPO Sodium Chloride (0.9 % Sodium Chloride Flush 3 Ml Syringe) 3 ml IVFLUSH QSHIFT [facility] Last Admin: 04/05/23 08:35 Dose: 3 ml Documented By: MILVIA Labs 03/28/23 06:26 04/05/23 07:48 Labs: Laboratory Results - last 24 hr 03/27/23 04/04/23 04/04/23 15:00 18:13 19:35 Hold Purple Top Anion Gap Estim Creat Clear Calc Estimated GFR POC Glucose 145 H 143 H Random Glucose Calcium Phosphorus Magnesium Triglycerides Ur L.pneumophila Ag Not Detected 04/05/23 04/05/23 04/05/23 00:14 06:05 07:48 Hold Purple Top SEE NOTE Anion Gap 13 Estim Creat Clear Calc 117.4 Estimated GFR > 60 POC Glucose 119 H 94 Random Glucose 93 Calcium 8.4 Phosphorus 3.7 Magnesium 2.2 Triglycerides 114 Ur L.pneumophila Ag 04/05/23 12:04 Hold Purple Top Anion Gap Estim Creat Clear Calc Estimated GFR POC Glucose 98 Random Glucose Calcium Phosphorus Magnesium Triglycerides Ur L.pneumophila Ag Assessment and Plan (1) Hypokalemia: Status: Acute (2) Aspiration into lower respiratory tract: Status: Acute (3) COVID-19: Status: Acute Plan 72 year old male with history of cognitive and neurobehavior dysfunction, seizure desorder here with acute hypoxic resp failure, aspiration pneumonitis and Covid Acute hypoxic respiratory failure due to covid-- hypoxia resolved, on RA 95%, repeat covid if negative, stop isolation Sepsis due to aspiration pneumonia--completed 7 days of Zosyn Metabolic Encephalopathy due to acute illness and underlying cognitive desorder, appear to be at baseline Hypernatremia resolved Dysphagia continue parenteral nutrition IV PPN started on (03/27/23). He continues to fail swallow eval so keep NPO. Ongoing discussion with guardian regarding PEG, that may required court action. Nutrition and speech follow up, if not able to eat enough will propose tube feed to guardian hypOkalemia : repleted and resolved mild bradycardia : resolved ,atenolol restarted, stable vitals hypothyriodism- tsh elevated ,Free t4-normal, continue levothyroxine iv Pressure (decubitus) ulcer/injury coccyx Stage 2: continue position change,iv PPN Seizure disorder on IV Depakote until able to take PO atypical depressive disorder/ Neuro Behavioral dysfunction continue home medications patient is resident of [facility] and has a guardian--Spoke to guardian Stephanie Soaresambault [phone] about treatment plan, code status to be reconsider to DNR by court--try to update today 04/03 no answer.. Should proceed with PEG DVT prophylaxis: Heparin Full code ongoing hospitlization need:treatement of sepsis due to pneuomina, on IV PPN due to dysphagia. Time Spent With Patient Time: Total time managing care of this patient today ____ minutes. Quality Stroke Does the patient have a stroke diagnosis?: No VTE Prior VTE?: No VTE Risk Level:: Medical - moderate - high VTE Device Contraindication: Treatment Not Indicated VTE Drug Contraindication: N/A - Med Ordered
--- NOTE | 2023-04-05 12:34 | MHC.SL.SWA ---
Speech Pathologist Impression: Risk of aspiration, oropharyngeal dysphagia Risk of Aspiration Due to: Neurological Condition Reduced Cognition Dysphasia Diet Status: Recommend continued NPO with PO trials (NDD1, liquids) with MANUAL ARTS THERAPIST. Liquid Consistency and Strategies for Safe Swallow: Liquid Intake Recommendation: NPO Solid Food Consistency: Dietary Recommendations: NPO Additional Modifications to Solid Foods: Pt w/ neglect of bolus/oral holding, significantly delayed swallow after extensive cuing and encouragement, at times absent laryngeal elevation. Pt was given very limited PO then refused further trials. Recommend continued NPO with PO trials with MANUAL ARTS THERAPIST. Continue w/ frequent oral care, ice chips for comfort ok w/ supervision of MANUAL ARTS THERAPIST dinking machine operator. Per MD, there is ongoing discussion with guardian regarding PEG, that may require court action. Oral Medication Intake: NPO Please contact the pharmacy regarding appropriate crushable or liquid drug formulations that are available whenever modified delivery is recommended. Supervision While Eating and Drinking for Safe Swallow: PO with MANUAL ARTS THERAPIST Swallowing Recommended Treatments: Compens. Strategy Educat. Recommendation for Speech: Inpatient Speech Therapy [ End ] Frequency/Duration: M-F while inpatient. Date Range for Service Req: Timeline to reassess: Director Of Public Works Clinican/Clinical Fellow: No Supervisory Statement: I have reviewed and agree with the student/clinical fellow's documentation: N/A Speech Language Pathologist: Allyssa Nolasco M.A., CCC-MANUAL ARTS THERAPIST
--- NOTE | 2023-04-05 13:04 | MHC.CLN ---
F/U REVIEWED LABS PT CONTINUES WITH NPO STATUS INSTRUMENT ENGINEER FOLLOWING CONTINUES TO RECOMMEND NPO CONTINUE PPN AT MAX GOAL RATE 75ML/HR PROVIDES 1848 TOTAL KCALS FROM FORMULA AND LIPIDS (28KCALS/KG), 77G PROTEIN (1.2G/KG), 180G DEXTROSE WITH 93G LIPIDS (1.4G/KG) REPLETE LYTES NEEDED PPN WILL PROMOTE WOUND HEALING PT WILL NEED PEG FOR CONTINUED NUTRITION SUPPORT CONSULT RD FOR PEG IF NEEDED FOLLOWING WITH TEAM
--- NOTE | 2023-04-05 14:45 | HO.WOUND ---
Wound Consult: Initial 72yr old male admitted to [facility] on 03/24/23 23:35 - See progress notes and H&P for detailed history. Right Sacrum Etiology: Unstageable Pressure Injury Present on Admission Measurements: 2.5cm x 2.5cm x 1.5cm Wound Bed: Moist fibrinous necrotic hines green slough Drainage / Odor: Green nonodorous drainage Edges: unattached Bharati wound: ?Intact red hyperpigmented tissue slow to jolynn throughout No induration no fluctuance noted - no s/s of active infection at this time Goals of Treatment: ?Off Load Pressure and Santyl for enzymatic debridement Left Sacrum Etiology: Unstageable Pressure Injury Measurements: 1.2cm x 1.2cm x 0.2cm Wound Bed: Moist fibrinous necrotic hines green slough Drainage / Odor: Green nonodorous drainage Edges: unattached Bharati wound: ?Intact red hyperpigmented tissue slow to jolynn throughout No induration no fluctuance noted - no s/s of active infection at this time Goals of Treatment: ?Off Load Pressure and Santyl for enzymatic debridement Perianal / Perineal / Coccyx Etiology: MASD - Fungal Dermatitis (Moisture Associated Skin Damage) Wound Bed: Red blanchable tissue with evidence of moisture related tissue loss and satellite lesions noted Drainage / Odor: moist drainage Edges: Advancing Goals of Care - Topical antifungal per provider Follow up in 2-3 days if patient remains inpatient. Recommendations: 1.Bilateral Sacrum - Off Load Pressure - Cleanse with normal saline, pat dry. ?Apply thin layer of Z-Guard to the immediate bharati wound, apply thick layer of Santyl to entire wound bed. Apply normal saline moist gauze over Santyl, cover with foam dressing. change Daily. 2. Perianal and perineal - Cleanse with PH Balance [place], pat dry. ?Apply thin layer of Antifungal ointment or powder twice a day. ??Apply for 10-14 days past point of clinical clearing per provider order. 3. Turn and Reposition every 2 hours and as needed for patient comfort. 4. Off Load all bony prominences with use of pillows. 5. Monitor for incontinence and moisture control. 6. Provide adequate and supplemental nutrition. 7. Continue low air loss mattress. Reconsult wound care team for wound deterioration or wound changes. --
--- NOTE | 2023-04-05 15:11 | MHC.CM.PN ---
EMR reviewed and per MD rounds, pt is not medically cleared for D/C due to continued dysphagia/NPO status, and pt receiving TPN, pt may need PEG. CM will continue to follow.
[2023-04-05 15:21] VITALS: BP 120/69; PULSE 99; RESP 20; TEMP 37.3; O2SAT 94
--- NOTE | 2023-04-05 17:00 | PC.NURSE ---
This RN was called to evaluate a midline. Pt's midline was found to be intact, however the external extension set of the midline was compromised, and no longer intact. On removal the the midline it was found that the catheter in its entirety was intact. 2x2 gauze dsg was applied. Primary RN aware. Pt francisco removal w/o complaint.
[2023-04-05 18:08] LABS: Glucose, Whole Blood 99 mg/dL (60-115)
[2023-04-05 19:24] VITALS: BP 106/67; PULSE 101; RESP 20; TEMP 36.4; O2SAT 96
[2023-04-06] VITALS (7 sets, daily range): BP systolic 104–137; BP diastolic 55–66; PULSE 94–101; RESP 16–20; TEMP 36.2–36.9; O2SAT 95–100
[2023-04-06] LABS: Glucose, Whole Blood 85 mg/dL (60-115)
[2023-04-06] MEDS: Levothyroxine Sodium 100 MCG/5 ML VIAL 12.5 MCG IVPUSH (05:51)
[2023-04-06 05:53] LABS: Glucose, Whole Blood 78 mg/dL (60-115)
[2023-04-06 07:53] LABS: Triglycerides 129 mg/dL (<150)
[2023-04-06 07:57] LABS: Anion Gap 14 (12-20); Blood Urea Nitrogen 8 mg/dL (9-16); Calcium 8.4 mg/dL (8.4-10.2); Carbon Dioxide 23 mmol/L (22-29); Chloride 103 mmol/L (96-108); Creatinine Clr Calc Pharmacy 117.4; Estimated Glomerular Filt Rate > 60; Glucose Random 80 mg/dL (60-115); Magnesium 2.1 mg/dL (1.6-2.6); Phosphorus 4.3 mg/dL (2.7-4.5); Potassium 3.9 mmol/L (3.3-5.1); Sodium 136 mmol/L (135-145)
[2023-04-06] MEDS: Heparin Sodium,Porcine 5,000 UNIT/ML VIAL 5000 UNIT SUBCUT ×3 (08:01→23:03)
[2023-04-06] MEDS: Valproic Acid (as Sodium Salt) 500 MG in Dextrose 5 % 50 ML 55 MG IV ×2 (08:01→21:55)
[2023-04-06] MEDS: 0.9 % Sodium Chloride Flush 3 ML SYRINGE IVFLUSH ×2 (08:02→21:57)
--- NOTE | 2023-04-06 10:02 | MHC.CLN ---
F/U REVIEWED LABS NOTED MIDLINE PULLED PER NSG PT CONTINUES WITH NPO STATUS COOK VACUUM KETTLE FOLLOWING CONTINUES TO RECOMMEND NPO CONTINUE PPN AT MAX GOAL RATE 75ML/HR PROVIDES 1848 TOTAL KCALS FROM FORMULA AND LIPIDS (28KCALS/KG), 77G PROTEIN (1.2G/KG), 180G DEXTROSE WITH 93G LIPIDS (1.4G/KG) REPLETE LYTES NEEDED PPN WILL PROMOTE WOUND HEALING PT WILL NEED PEG FOR CONTINUED NUTRITION SUPPORT CONSULT RD FOR PEG IF NEEDED FOLLOWING
[2023-04-06 11:08] LABS: Glucose, Whole Blood 81 mg/dL (60-115)
--- NOTE | 2023-04-06 11:36 | HO.PM.IMPN ---
Subjective Subjective Date of Service: 04/07/23 Interval History: no new issues Physical Exam Vital Signs: Vital Signs: Last Vital Signs Temp 98.4 F 04/06/23 11:20 Pulse 96 04/06/23 11:20 Resp 20 04/06/23 11:20 BP 105/61 04/06/23 11:20 Pulse Ox 96 04/06/23 11:20 O2 Del Method Room Air 04/06/23 11:20 O2 Flow Rate 2 03/30/23 08:00 Oxygen Flow Rate 4 03/25/23 00:10 BMI result Body Mass Index 22.1 Const: Other: General awake alert, but not conversing Neck supple no JVD. CVS regular rate rhythm, Respiratory lungs clear to auscultation, few rhonchi, no respiratory distress, no wheeze, Gastrointestinal abdomen soft, non tender, bowel sounds audible, no guarding , no rigidity. Extremities no edema, Neuro nonfocal ,speech clear, verbalized minimally. Skin decub ulcer 04/05 Objective Data Active Medications Acetaminophen (Acetaminophen Supp 650 Mg Supp.Rect) 650 mg [place] Q6H PRN PRN Reason: Fever Last Admin: 03/24/23 22:28 Dose: 650 mg Documented By: ZAIRA Acetaminophen (Acetaminophen Supp 650 Mg Supp.Rect) 650 mg [place] Q6H PRN PRN Reason: Pain, Mild (Pain Scale 1-3) Atenolol (Atenolol 25 Mg Tablet) 25 mg PO DAILY [facility]; Protocol Last Admin: 04/06/23 08:03 Dose: Not Given Documented By: KENA Non-Admin Reason: NPO Atorvastatin Calcium (Atorvastatin Calcium 10 Mg Tablet) 10 mg PO DAILY [facility] Last Admin: 03/26/23 08:44 Dose: 10 mg Documented By: ROBERT Dextrose (Dextrose 50 % 25 Gm/50 Ml Syringe) 25 gm IVPUSH Q15M PRN; Protocol PRN Reason: per Hypoglycemia Standing Ord. Glucose (Glucose Gel 15 Gm Gel..Gram.) 15 gm PO Q15M PRN; Protocol PRN Reason: per Hypoglycemia Standing Ord. Guaifenesin (Guaifenesin 200 Mg/10 Ml 10 Ml Liquid) 10 ml PO Q4H PRN PRN Reason: Cough Last Admin: 03/28/23 09:25 Dose: 10 ml Documented By: ROBERT Heparin Sodium (Porcine) (Heparin Sodium,Porcine 5,000 Unit/Ml Vial) 5,000 unit SUBCUT Q8H [facility] Last Admin: 04/06/23 08:01 Dose: 5,000 unit Documented By: KENA Hydroxyzine HCl (Hydroxyzine Hcl 25 Mg Tablet) 25 mg PO BEDTIME PRN PRN Reason: Itching Valproic Acid 500 mg/ Dextrose 55 mls @ 55 mls/hr IV Q12H [facility] Last Infusion: 04/06/23 09:01 Dose: Infused Documented By: KENA Nutrition (Parenteral) (Parenteral Nutrition) 1,800 mls @ 75 mls/hr IV .Q24H [facility]; Protocol Stop: 04/06/23 20:59 Last Admin: 04/05/23 21:08 Dose: Not Given Documented By: GRABIEL Non-Admin Reason: No Access Nutrition (Parenteral) (Parenteral Nutrition) 1,800 mls @ 75 mls/hr IV .Q24H [facility]; Protocol Stop: 04/07/23 20:59 Insulin Human Lispro (Insulin Lispro 100 Unit/Ml 3 Ml Vial) 0 unit SUBCUT Q6H [facility]; Protocol Last Admin: 04/06/23 11:35 Dose: Not Given Documented By: KENA Non-Admin Reason: No Insulin Coverage Levothyroxine Sodium (Levothyroxine Sodium 100 Mcg/5 Ml Vial) 12.5 mcg IVPUSH DAILY@0600 [facility] Last Admin: 04/06/23 05:51 Dose: 12.5 mcg Documented By: GRABIEL Memantine (Memantine Hcl 5 Mg Tablet) 5 mg PO DAILY [facility] Last Admin: 04/06/23 08:04 Dose: Not Given Documented By: KENA Non-Admin Reason: NPO Mirtazapine (Mirtazapine 30 Mg Tablet) 30 mg PO BEDTIME [facility] Last Admin: 04/05/23 21:08 Dose: Not Given Documented By: GRABIEL Non-Admin Reason: NPO Pharmacy Consult (Consult Rx Parenteral Nutrition Ordering) 1 each MISCELLANE DAILY PRN PRN Reason: Consult order Sertraline HCl (Sertraline Hcl 25 Mg Tablet) 25 mg PO DAILY [facility] Last Admin: 04/06/23 08:04 Dose: Not Given Documented By: KENA Non-Admin Reason: NPO Sodium Chloride (0.9 % Sodium Chloride Flush 3 Ml Syringe) 3 ml IVFLUSH QSHIFT [facility] Last Admin: 04/06/23 08:02 Dose: 3 ml Documented By: KENA Labs 03/28/23 06:26 04/06/23 07:29 Labs: Laboratory Results - last 24 hr 04/05/23 04/05/23 04/05/23 12:04 18:05 23:54 Hold Purple Top Anion Gap Estim Creat Clear Calc Estimated GFR POC Glucose 98 99 85 Random Glucose Calcium Phosphorus Magnesium Triglycerides 04/06/23 04/06/23 04/06/23 05:49 07:29 07:35 Hold Purple Top SEE NOTE Anion Gap 14 Estim Creat Clear Calc 117.4 Estimated GFR > 60 POC Glucose 78 Random Glucose 80 Calcium 8.4 Phosphorus 4.3 Magnesium 2.1 Triglycerides 129 04/06/23 11:02 Hold Purple Top Anion Gap Estim Creat Clear Calc Estimated GFR POC Glucose 81 Random Glucose Calcium Phosphorus Magnesium Triglycerides Assessment and Plan (1) Hypokalemia: Status: Acute (2) Aspiration into lower respiratory tract: Status: Acute (3) COVID-19: Status: Acute Plan 72 year old male with history of cognitive and neurobehavior dysfunction, seizure desorder here with acute hypoxic resp failure, aspiration pneumonitis and Covid Acute hypoxic respiratory failure due to covid-- hypoxia resolved, on RA 95%, repeat covid if negative, stop isolation Sepsis due to aspiration pneumonia--completed 7 days of Zosyn Metabolic Encephalopathy due to acute illness and underlying cognitive desorder, appear to be at baseline Hypernatremia resolved Dysphagia continue parenteral nutrition IV PPN started on (03/27/23). He continues to fail swallow eval so keep NPO. Ongoing discussion with guardian regarding PEG, that may required court action. Nutrition and speech follow up, if not able to eat enough will propose tube feed to guardian. To get new midline today hypOkalemia : repleted and resolved mild bradycardia : resolved ,atenolol restarted, stable vitals hypothyriodism- tsh elevated ,Free t4-normal, continue levothyroxine iv Pressure (decubitus) ulcer/injury coccyx Stage 2: continue position change,iv PPN Seizure disorder on IV Depakote until able to take PO atypical depressive disorder/ Neuro Behavioral dysfunction continue home medications patient is resident of [facility] and has a guardian--Spoke to guardian Stephanie Elliottault [phone] about treatment plan, code status to be reconsider to DNR by court--try to update today 04/03 no answer.. Should proceed with PEG DVT prophylaxis: Heparin Full code ongoing hospitlization need:treatement of sepsis due to pneuomina, on IV PPN due to dysphagia. Time Spent With Patient Time: Total time managing care of this patient today ____ minutes. Quality Stroke Does the patient have a stroke diagnosis?: No VTE Prior VTE?: No VTE Risk Level:: Medical - moderate - high VTE Device Contraindication: Treatment Not Indicated VTE Drug Contraindication: N/A - Med Ordered
[2023-04-06] MEDS: Dextrose 5 % 1,000 ML 100 ML IVCONT (11:55)
--- NOTE | 2023-04-06 16:46 | MHC.SPEECHCO ---
Pt NPO for Midline procedure. Previously on Puree Solids (NDD1) and [place] Thick Liquids. [employer] following.
--- NOTE | 2023-04-06 17:36 | HO.MIDLINE ---
Midline Insertion MIDLINE INSERTION Diagnosis: Indication: PPN Pertinent Labs: Reviewed Technique: Using sterile technique including cap and mask, glove and drape, the right arm was prepped and draped in the usual sterile fashion of full barrier technique with G. Using ultrasound guidance, right basilic vein access was obtained on first attempt. 20g x 10cm non PASV midline was positioned. The procedure was performed in S272. Ultrasound was used to document vein patency and for needle entry. A formal ultrasound picture was recorded. Vascular Access Service Representative has released the line for use and it is currently dressed with a StatLock, Tegaderm, and CHG disc. Verification has been performed for blood return and line patency. Arm Circumference: 26 cm Equipment: Power [place] ST midline catheter Catheter Type: 20g x 10cm non PASV midline Lot #: [id number]
[2023-04-06 18:36] LABS: Glucose, Whole Blood 80 mg/dL (60-115)
[2023-04-06] MEDS: Parenteral Nutrition 1,800 ML 75 ML IV (22:00)
[2023-04-06 23:12] LABS: Glucose, Whole Blood 62 mg/dL (60-115)
[2023-04-06] MEDS: Dextrose 50 % 25 GM/50 ML SYRINGE IVPUSH (23:22)
[2023-04-06 23:48] LABS: Glucose, Whole Blood 234 mg/dL (60-115)
--- NOTE | 2023-04-07 01:39 | PC.NURSE ---
Assumed care of patient 19:00 (04/06). Q6h pocs with PPN infusing as ordered via midline in RT arm; D5W D/C'd on hanging PPN per Dr. Lovelace order. First POC 23:00 hour = 62. Pt alert and talking, asymptomatic. Dr. Lovelace notified. Prn 25gm dextrose given with +effect, POC 234 after dextrose.
[2023-04-07 03:31] VITALS: BP 103/58; PULSE 95; RESP 22; TEMP 36.7; O2SAT 97
[2023-04-07 07:32] VITALS: BP 115/61; PULSE 95; RESP 20; TEMP 36.7; O2SAT 95
[2023-04-07 07:38] LABS: Triglycerides 165 mg/dL (<150)
[2023-04-07] MEDS: 0.9 % Sodium Chloride Flush 3 ML SYRINGE IVFLUSH ×3 (07:54→22:25)
[2023-04-07] MEDS: Heparin Sodium,Porcine 5,000 UNIT/ML VIAL 5000 UNIT SUBCUT ×3 (07:54→22:24)
[2023-04-07] MEDS: Valproic Acid (as Sodium Salt) 500 MG in Dextrose 5 % 50 ML 55 MG IV ×2 (07:54→22:25)
[2023-04-07 08:17] LABS: Glucose, Whole Blood 147 mg/dL (60-115)
--- NOTE | 2023-04-07 10:17 | HO.PM.IMPN ---
Subjective Subjective Date of Service: 04/07/23 Interval History: no new issues Physical Exam Vital Signs: Vital Signs: Last Vital Signs Temp 98.1 F 04/07/23 07:32 Pulse 95 04/07/23 07:32 Resp 20 04/07/23 07:32 BP 115/61 04/07/23 07:32 Pulse Ox 95 04/07/23 07:32 O2 Del Method Room Air 04/07/23 07:32 O2 Flow Rate 2 03/30/23 08:00 Oxygen Flow Rate 4 03/25/23 00:10 BMI result Body Mass Index 22.1 Const: Other: General awake alert, but not conversing Neck supple no JVD. CVS regular rate rhythm, Respiratory lungs clear to auscultation, few rhonchi, no respiratory distress, no wheeze, Gastrointestinal abdomen soft, non tender, bowel sounds audible, no guarding , no rigidity. Extremities no edema, Neuro nonfocal ,speech clear, verbalized minimally. Skin decub ulcer 04/05 General: cooperative HEENT: Other: Dry MMs Head: Yes normal to inspection Face and sinus: Yes normal facial exam Mouth: Normal oral and palatal mucosa present Teeth and gingiva: dentition normal Eyes: General: appearance normal, both eyes and all related structures Pupils: Equal, round and reactive pupils present Resp: Effort & Inspection: normal respiratory effort Auscultation: clear to auscultation bilaterally Cardio: Rate: regular rate Rhythm: regular rhythm GI: Palpation (GI): Soft to palpation and nontender Auscultation: normal bowel sounds : General: Yes no CVA tenderness Back/Spine/Pelvis: Back: no CVA tenderness Skin: General skin exam: no rashes or lesions noted Neuro: General: moves all extremities Cranial nerves: Yes Equal, round and reactive pupils present Extrem: Other: No edema General: Yes normal to inspection Psych: Other: encephalopathic Objective Data Active Medications Acetaminophen (Acetaminophen Supp 650 Mg Supp.Rect) 650 mg [place] Q6H PRN PRN Reason: Fever Last Admin: 03/24/23 22:28 Dose: 650 mg Documented By: ZAIRA Acetaminophen (Acetaminophen Supp 650 Mg Supp.Rect) 650 mg [place] Q6H PRN PRN Reason: Pain, Mild (Pain Scale 1-3) Atenolol (Atenolol 25 Mg Tablet) 25 mg PO DAILY [facility]; Protocol Last Admin: 04/07/23 08:06 Dose: Not Given Documented By: ERIN Non-Admin Reason: NPO Atorvastatin Calcium (Atorvastatin Calcium 10 Mg Tablet) 10 mg PO DAILY [facility] Last Admin: 03/26/23 08:44 Dose: 10 mg Documented By: ROBERT Dextrose (Dextrose 50 % 25 Gm/50 Ml Syringe) 25 gm IVPUSH Q15M PRN; Protocol PRN Reason: per Hypoglycemia Standing Ord. Last Admin: 04/06/23 23:22 Dose: 25 gm Documented By: CARLOS ENRIQUE Glucose (Glucose Gel 15 Gm Gel..Gram.) 15 gm PO Q15M PRN; Protocol PRN Reason: per Hypoglycemia Standing Ord. Guaifenesin (Guaifenesin 200 Mg/10 Ml 10 Ml Liquid) 10 ml PO Q4H PRN PRN Reason: Cough Last Admin: 03/28/23 09:25 Dose: 10 ml Documented By: ROBERT Heparin Sodium (Porcine) (Heparin Sodium,Porcine 5,000 Unit/Ml Vial) 5,000 unit SUBCUT Q8H [facility] Last Admin: 04/07/23 07:54 Dose: 5,000 unit Documented By: ERIN Hydroxyzine HCl (Hydroxyzine Hcl 25 Mg Tablet) 25 mg PO BEDTIME PRN PRN Reason: Itching Valproic Acid 500 mg/ Dextrose 55 mls @ 55 mls/hr IV Q12H [facility] Last Infusion: 04/07/23 09:10 Dose: Infused Documented By: ERIN Nutrition (Parenteral) (Parenteral Nutrition) 1,800 mls @ 75 mls/hr IV .Q24H [facility]; Protocol Stop: 04/07/23 20:59 Last Admin: 04/06/23 22:00 Dose: 75 mls/hr Documented By: CARLOS ENRIQUE Dextrose (D5w) 1,000 mls @ 100 mls/hr IVCONT .Q10H [facility] Last Admin: 04/07/23 08:07 Dose: Not Given Documented By: ERIN Non-Admin Reason: DC per night Insulin Human Lispro (Insulin Lispro 100 Unit/Ml 3 Ml Vial) 0 unit SUBCUT Q6H [facility]; Protocol Last Admin: 04/07/23 05:21 Dose: Not Given Documented By: CARLOS ENRIQUE Non-Admin Reason: pt refusing AM POC. notified Levothyroxine Sodium (Levothyroxine Sodium 100 Mcg/5 Ml Vial) 12.5 mcg IVPUSH DAILY@0600 [facility] Last Admin: 04/07/23 05:03 Dose: Not Given Documented By: CARLOS ENRIQUE Non-Admin Reason: NPO Memantine (Memantine Hcl 5 Mg Tablet) 5 mg PO DAILY [facility] Last Admin: 04/07/23 08:06 Dose: Not Given Documented By: ERIN Non-Admin Reason: NPO Mirtazapine (Mirtazapine 30 Mg Tablet) 30 mg PO BEDTIME [facility] Last Admin: 04/06/23 22:04 Dose: Not Given Documented By: CARLOS ENRIQUE Non-Admin Reason: NPO Pharmacy Consult (Consult Rx Parenteral Nutrition Ordering) 1 each MISCELLANE DAILY PRN PRN Reason: Consult order Sertraline HCl (Sertraline Hcl 25 Mg Tablet) 25 mg PO DAILY [facility] Last Admin: 04/07/23 08:07 Dose: Not Given Documented By: ERIN Non-Admin Reason: NPO Sodium Chloride (0.9 % Sodium Chloride Flush 3 Ml Syringe) 3 ml IVFLUSH QSHIFT [facility] Last Admin: 04/07/23 07:54 Dose: 3 ml Documented By: ERIN Labs 03/28/23 06:26 04/06/23 07:29 Labs: Laboratory Results - last 24 hr 04/06/23 04/06/23 04/06/23 11:02 18:33 23:08 POC Glucose 81 80 62 Triglycerides 04/06/23 04/07/23 04/07/23 23:45 06:43 07:34 POC Glucose 234 H 147 H Triglycerides 165 H Assessment and Plan (1) Hypokalemia: Status: Acute (2) Aspiration into lower respiratory tract: Status: Acute (3) COVID-19: Status: Acute Plan 72 year old male with history of cognitive and neurobehavior dysfunction, seizure desorder here with acute hypoxic resp failure, aspiration pneumonitis and Covid Acute hypoxic respiratory failure due to covid-- hypoxia resolved, on RA 95%, repeat covid if negative, stop isolation Sepsis due to aspiration pneumonia--completed 7 days of Zosyn Metabolic Encephalopathy due to acute illness and underlying cognitive desorder, appear to be at baseline Hypernatremia resolved Dysphagia continue parenteral nutrition IV PPN started on (03/27/23). He continues to fail swallow eval so keep NPO. Ongoing discussion with guardian regarding PEG with understanding that a PEG will not improve his quality of life, alternatively comfort measures should be sought. Until a decision is made by the court, will continue TPN hypOkalemia : repleted and resolved mild bradycardia : resolved ,atenolol restarted, stable vitals hypothyriodism- tsh elevated ,Free t4-normal, continue levothyroxine iv Pressure (decubitus) ulcer/injury coccyx Stage 2: continue position change,iv PPN and other recommendation per wound nurse Seizure disorder on IV Depakote until able to take PO atypical depressive disorder/ Neuro Behavioral dysfunction continue home medications patient is resident of [facility] and has a guardian--Spoke to guardian Stephanie Singh [phone] about treatment plan, code status to be reconsider to DNR by court--try to update today 04/03 no answer.. Should proceed with PEG DVT prophylaxis: Heparin Full code ongoing hospitlization need:treatement of sepsis due to pneuomina, on IV PPN due to dysphagia. Time Spent With Patient Time: Total time managing care of this patient today ____ minutes. Quality Stroke Does the patient have a stroke diagnosis?: No VTE Prior VTE?: No VTE Risk Level:: Medical - moderate - high VTE Device Contraindication: Treatment Not Indicated VTE Drug Contraindication: N/A - Med Ordered
[2023-04-07 10:41] LABS: Anion Gap 15 (12-20)
--- NOTE | 2023-04-07 10:47 | MHC.CLN ---
F/U REVIEWED LABS NEW MIDLINE PLACED PT CONTINUES WITH NPO STATUS DISCUSSED WITH PHARMACY RE-START PPN AT MAX GOAL RATE 75ML/HR PROVIDES 1848 TOTAL KCALS FROM FORMULA AND LIPIDS (28KCALS/KG), 77G PROTEIN (1.2G/KG), 180G DEXTROSE WITH 93G LIPIDS (1.4G/KG) REPLETE LYTES NEEDED PPN PROMOTES WOUND HEALING
[2023-04-07 10:48] LABS: Blood Urea Nitrogen 7 mg/dL (9-16); Calcium 9.1 mg/dL (8.4-10.2); Carbon Dioxide 23 mmol/L (22-29); Chloride 103 mmol/L (96-108); Creatinine Clr Calc Pharmacy 124.4; Estimated Glomerular Filt Rate > 60; Glucose Random 138 mg/dL (60-115); Magnesium 2.3 mg/dL (1.6-2.6); Potassium 3.9 mmol/L (3.3-5.1); Sodium 137 mmol/L (135-145)
--- NOTE | 2023-04-07 11:04 | MHC.SL.SWA ---
Risk of Aspiration Due to: Neurological Condition Reduced Cognition Dysphasia Diet Status: Recommend continued NPO with PO trials with HR ASSOCIATE. Liquid Consistency and Strategies for Safe Swallow: Liquid Intake Recommendation: NPO Solid Food Consistency: Dietary Recommendations: NPO Oral Medication Intake: NPO Please contact the pharmacy regarding appropriate crushable or liquid drug formulations that are available whenever modified delivery is recommended. Compensatory Strategies and Precautions to be Taken for Safe Swallow: Sitting Upright (90 deg) Supervision While Eating and Drinking for Safe Swallow: PO with HR ASSOCIATE Swallowing Recommended Treatments: Compens. Strategy Educat. Recommendation for Speech: Inpatient Speech Therapy Pt consistently presenting w/ neglect of bolus/oral holding and significantly delayed swallow after extensive cuing and encouragement. Pt swallowed 1 bite applesauce following 2-3 minute delay. Recommend continued NPO with PO trials with HR ASSOCIATE. Continue w/ frequent oral care, ice chips for comfort ok w/ supervision of HR ASSOCIATE pilates coordinator. Firearms Expert Clinican/Clinical Fellow: No Supervisory Statement: I have reviewed and agree with the student/clinical fellow's documentation: N/A Speech Language Pathologist: Manisha Skaggs M.A., CCC-HR ASSOCIATE
--- NOTE | 2023-04-07 11:07 | MHC.SL.SWA ---
Risk of Aspiration Due to: Neurological Condition Reduced Cognition Dysphasia Diet Status: Recommend continued NPO with PO trials with GENERAL MAINTENANCE HELPER. Liquid Consistency and Strategies for Safe Swallow: Liquid Intake Recommendation: NPO Solid Food Consistency: Dietary Recommendations: NPO Oral Medication Intake: NPO Please contact the pharmacy regarding appropriate crushable or liquid drug formulations that are available whenever modified delivery is recommended. Supervision While Eating and Drinking for Safe Swallow: PO with GENERAL MAINTENANCE HELPER Swallowing Recommended Treatments: Compens. Strategy Educat. Recommendation for Speech: Inpatient Speech Therapy Pt consistently presenting w/ neglect of bolus/oral holding and significantly delayed swallow after extensive cuing and encouragement. Pt swallowed 1 bite applesauce following 2-3 minute delay. Recommend continued NPO with PO trials with GENERAL MAINTENANCE HELPER. Continue w/ frequent oral care, ice chips for comfort ok w/ supervision of GENERAL MAINTENANCE HELPER clinical investigator. GENERAL MAINTENANCE HELPER visualized possible structural abnormality on left side of velum. Patient did not allow patient to look further. , RN, RD updated via [employer]. Floriculturist Clinican/Clinical Fellow: No Supervisory Statement: I have reviewed and agree with the student/clinical fellow's documentation: N/A Speech Language Pathologist: Manisha Skaggs M.A., [facility]-GENERAL MAINTENANCE HELPER
[2023-04-07 11:31] VITALS: BP 115/61; PULSE 102; RESP 20; TEMP 36.7; O2SAT 96
[2023-04-07 11:58] LABS: Glucose, Whole Blood 166 mg/dL (60-115)
[2023-04-07] MEDS: Insulin Lispro 100 UNIT/ML 3 ML VIAL SUBCUT (12:39)
--- NOTE | 2023-04-07 14:37 | MHC.CM.PN ---
EMR reviewed and per MD rounds, pt is not medically cleared for D/C today due to continued dysphagia, NPO, and remaining on TPN. CM will continue to follow.
--- NOTE | 2023-04-07 15:34 | HO.WOUND ---
Wound Consult: Follow Up 72yr old male admitted [place] [facility] [place]24[place]23 23:35 - See progress notes and H&P for detailed history. Little improvemnt noted from last assessment see note from 04/05/23 - will continue with Santyl and reassess early next week for improvement. Right Sacrum Etiology: Unstageable Pressure Injury Present on Admission Measurements: 3cm x 2.8cm x 2cm Wound Bed: Moist fibrinous necrotic hines green slough Drainage / Odor: Green mild odor drainage Edges: unattached Bharati wound: ?Intact red hyperpigmented tissue slow to jolynn throughout No induration noted fluctuance noted at central necrotic tissue - no s/s of active infection at this time Goals of Treatment: ?Off Load Pressure and Santyl for enzymatic debridement Left Sacrum Etiology: Unstageable Pressure Injury Measurements: 1cm x 2.2cm x 0.2cm Wound Bed: Moist fibrinous necrotic green yellow slough Drainage / Odor: Green mild odorous drainage Edges: irregular Bharati wound: ?Intact red hyperpigmented tissue slow to jolynn throughout Mild induration noted in the periwound no fluctuance noted - no s/s of active infection at this time Goals of Treatment: ?Off Load Pressure and Santyl for enzymatic debridement Perianal / Perineal / Coccyx Etiology: MASD - Fungal Dermatitis (Moisture Associated Skin Damage) Wound Bed: Red blanchable tissue with evidence of moisture related tissue loss and advancing satellite lesions noted Drainage / Odor: moist drainage Edges: Advancing Goals of Care - Topical antifungal per provider - TT to provider to order Follow up in 5 days if patient remains inpatient. Recommendations: 1.Bilateral Sacrum - Off Load Pressure - Cleanse with normal saline, pat dry. ?Apply thin layer of Triad to the immediate bharati wound, apply thick layer of Santyl to entire wound bed. Apply normal saline moist gauze over Santyl, cover with foam dressing. change Daily. 2. Perianal and perineal - Cleanse with PH Balance Ivel, pat dry. ?Apply thin layer of Antifungal ointment or powder twice a day. ??Apply for 10-14 days past point of clinical clearing per provider order. Consider Triad application after Antifungal to sooth and protect from moisture. 3. Turn and Reposition every 2 hours and as needed for patient comfort - Wedges provided at bedside and in use. 4. Off Load all bony prominences with use of pillows - heels in off loading boots. 5. Monitor for incontinence and moisture control. 6. Provide adequate and supplemental nutrition. 7. Continue low air loss mattress. Reconsult wound care team for wound deterioration or wound changes. --
[2023-04-07 15:44] VITALS: BP 100/51; PULSE 100; RESP 18; TEMP 36.9; O2SAT 94
[2023-04-07 17:00] LABS: Glucose, Whole Blood 142 mg/dL (60-115)
[2023-04-07] MEDS: Collagenase Clostridium Hist. 30 GM TUBE 1 APPL TOPICAL (18:16)
[2023-04-07 20:00] VITALS: BP 110/59; PULSE 107; RESP 18; TEMP 36.9; O2SAT 95
[2023-04-07] MEDS: Parenteral Nutrition 1,800 ML 75 ML IV (22:24)
[2023-04-07 23:26] VITALS: BP 124/66; PULSE 104; RESP 17; TEMP 37.4; O2SAT 96
[2023-04-08 00:13] LABS: Glucose, Whole Blood 141 mg/dL (60-115)
[2023-04-08 03:23] VITALS: BP 110/55; PULSE 108; RESP 16; TEMP 37.2; O2SAT 96
[2023-04-08 07:24] LABS: Triglycerides 180 mg/dL (<150)
[2023-04-08 07:50] VITALS: BP 132/74; PULSE 98; RESP 16; TEMP 36.9; O2SAT 97
[2023-04-08] MEDS: Heparin Sodium,Porcine 5,000 UNIT/ML VIAL 5000 UNIT SUBCUT ×2 (08:07→15:28)
[2023-04-08] MEDS: Collagenase Clostridium Hist. 30 GM TUBE 1 APPL TOPICAL (08:07)
[2023-04-08] MEDS: 0.9 % Sodium Chloride Flush 3 ML SYRINGE IVFLUSH ×3 (08:08→21:15)
[2023-04-08] MEDS: Valproic Acid (as Sodium Salt) 500 MG in Dextrose 5 % 50 ML 55 MG IV ×2 (08:14→21:14)
[2023-04-08 09:43] LABS: Anion Gap 13 (12-20); Blood Urea Nitrogen 9 mg/dL (9-16); Calcium 8.8 mg/dL (8.4-10.2); Carbon Dioxide 22 mmol/L (22-29); Chloride 102 mmol/L (96-108); Creatinine Clr Calc Pharmacy 124.4; Estimated Glomerular Filt Rate > 60; Glucose Random 156 mg/dL (60-115); Magnesium 2.2 mg/dL (1.6-2.6); Phosphorus 3.7 mg/dL (2.7-4.5); Potassium 4.2 mmol/L (3.3-5.1); Sodium 133 mmol/L (135-145)
--- NOTE | 2023-04-08 10:17 | P.PNIM_ITS ---
Subjective Subjective Date of Service: 04/09/23 Interval History: no new issues, failed last swallow eval yesterday Physical Exam 2 Vital Signs: Vital Signs: Last Vital Signs Temp 98.5 F 04/08/23 07:50 Pulse 98 04/08/23 07:50 Resp 16 04/08/23 07:50 BP 132/74 04/08/23 07:50 Pulse Ox 97 04/08/23 07:50 O2 Del Method Room Air 04/08/23 07:50 O2 Flow Rate 2 03/30/23 08:00 Oxygen Flow Rate 4 03/25/23 00:10 BMI result Body Mass Index 22.1 Const: Other: General awake alert, but not conversing Neck supple no JVD. CVS regular rate rhythm, Respiratory lungs clear to auscultation, few rhonchi, no respiratory distress, no wheeze, Gastrointestinal abdomen soft, non tender, bowel sounds audible, no guarding , no rigidity. Extremities no edema, Neuro nonfocal ,speech clear, verbalized minimally. Skin decub ulcer 04/05 Objective Data Active Medications Acetaminophen (Acetaminophen Supp 650 Mg Supp.Rect) [address] Q6H PRN PRN Reason: Fever Last Admin: 03/24/23 22:28 Dose: 650 mg Documented By: ZAIRA Acetaminophen (Acetaminophen Supp 650 Mg Supp.Rect) [address] Q6H PRN PRN Reason: Pain, Mild (Pain Scale 1-3) Atenolol (Atenolol 25 Mg Tablet) 25 mg PO DAILY [facility]; Protocol Last Admin: 04/08/23 07:41 Dose: Not Given Documented By: AMADOR Non-Admin Reason: NPO Atorvastatin Calcium (Atorvastatin Calcium 10 Mg Tablet) 10 mg PO DAILY [facility] Last Admin: 03/26/23 08:44 Dose: 10 mg Documented By: ROBERT Collagenase (Collagenase Clostridium Hist. 30 Gm Tube) 1 appl TOPICAL DAILY [facility]; Protocol Last Admin: 04/08/23 08:07 Dose: 1 appl Documented By: AMADOR Dextrose (Dextrose 50 % 25 Gm/50 Ml Syringe) 25 gm IVPUSH Q15M PRN; Protocol PRN Reason: per Hypoglycemia Standing Ord. Last Admin: 04/06/23 23:22 Dose: 25 gm Documented By: CARLOS ENRIQUE Glucose (Glucose Gel 15 Gm Gel..Gram.) 15 gm PO Q15M PRN; Protocol PRN Reason: per Hypoglycemia Standing Ord. Guaifenesin (Guaifenesin 200 Mg/10 Ml 10 Ml Liquid) 10 ml PO Q4H PRN PRN Reason: Cough Last Admin: 03/28/23 09:25 Dose: 10 ml Documented By: ROBERT Heparin Sodium (Porcine) (Heparin Sodium,Porcine 5,000 Unit/Ml Vial) 5,000 unit SUBCUT Q8H [facility] Last Admin: 04/08/23 08:07 Dose: 5,000 unit Documented By: AMADOR Hydroxyzine HCl (Hydroxyzine Hcl 25 Mg Tablet) 25 mg PO BEDTIME PRN PRN Reason: Itching Valproic Acid 500 mg/ Dextrose 55 mls @ 55 mls/hr IV Q12H [facility] Last Infusion: 04/08/23 09:47 Dose: Infused Documented By: AMADOR Nutrition (Parenteral) (Parenteral Nutrition) 1,800 mls @ 75 mls/hr IV .Q24H [facility]; Protocol Stop: 04/08/23 20:59 Last Infusion: 04/08/23 08:15 Dose: 75 mls/hr Documented By: AMADOR Insulin Human Lispro (Insulin Lispro 100 Unit/Ml 3 Ml Vial) 0 unit SUBCUT Q6H [facility]; Protocol Last Admin: 04/08/23 05:38 Dose: Not Given Documented By: CARLOS ENRIQUE Non-Admin Reason: pt refused POC. notified Levothyroxine Sodium (Levothyroxine Sodium 100 Mcg/5 Ml Vial) 12.5 mcg IVPUSH DAILY@0600 [facility] Last Admin: 04/08/23 05:07 Dose: Not Given Documented By: CARLOS ENRIQUE Non-Admin Reason: NPO Memantine (Memantine Hcl 5 Mg Tablet) 5 mg PO DAILY [facility] Last Admin: 04/08/23 07:41 Dose: Not Given Documented By: AMADOR Non-Admin Reason: NPO Mirtazapine (Mirtazapine 30 Mg Tablet) 30 mg PO BEDTIME [facility] Last Admin: 04/07/23 22:22 Dose: Not Given Documented By: CARLOS ENRIQUE Non-Admin Reason: NPO Pharmacy Consult (Consult Rx Parenteral Nutrition Ordering) 1 each MISCELLANE DAILY PRN PRN Reason: Consult order Sertraline HCl (Sertraline Hcl 25 Mg Tablet) 25 mg PO DAILY [facility] Last Admin: 04/08/23 07:41 Dose: Not Given Documented By: AMADOR Non-Admin Reason: NPO Sodium Chloride (0.9 % Sodium Chloride Flush 3 Ml Syringe) 3 ml IVFLUSH QSHIFT [facility] Last Admin: 04/08/23 08:08 Dose: 3 ml Documented By: AMADOR Labs 03/28/23 06:26 04/09/23 08:03 Labs: Laboratory Results - last 24 hr 04/07/23 04/07/23 04/07/23 06:43 11:29 16:50 Hold Purple Top Anion Gap 15 Estim Creat Clear Calc 124.4 Estimated GFR > 60 POC Glucose 166 H 142 H Random Glucose 138 H Calcium 9.1 D Phosphorus 4.0 Magnesium 2.3 Total Bilirubin Cancelled AST Cancelled ALT Cancelled Alkaline Phosphatase Cancelled Total Protein Cancelled Albumin Cancelled Triglycerides 04/08/23 04/08/23 04/08/23 00:09 06:33 07:05 Hold Purple Top SEE NOTE Anion Gap Estim Creat Clear Calc Estimated GFR POC Glucose 141 H Random Glucose Calcium Phosphorus Magnesium Total Bilirubin AST ALT Alkaline Phosphatase Total Protein Albumin Triglycerides 180 H 04/08/23 08:49 Hold Purple Top Anion Gap 13 Estim Creat Clear Calc 124.4 Estimated GFR > 60 POC Glucose Random Glucose 156 H Calcium 8.8 Phosphorus 3.7 Magnesium 2.2 Total Bilirubin AST ALT Alkaline Phosphatase Total Protein Albumin Triglycerides Assessment and Plan (1) Hypokalemia: Status: Acute (2) Aspiration into lower respiratory tract: Status: Acute (3) COVID-19: Status: Acute Plan 72 year old male with history of cognitive and neurobehavior dysfunction, seizure desorder here with acute hypoxic resp failure, aspiration pneumonitis and Covid Acute hypoxic respiratory failure due to covid-- hypoxia resolved, on RA 95%, repeat covid if negative, stop isolation Sepsis due to aspiration pneumonia--completed 7 days of Zosyn Metabolic Encephalopathy due to acute illness and underlying cognitive desorder, appear to be at baseline Hypernatremia resolved Dysphagia continue parenteral nutrition IV PPN started on (03/27/23). He continues to fail swallow eval so keep NPO. Ongoing discussion with guardian regarding PEG with understanding that a PEG will not improve his quality of life, alternatively comfort measures should be sought. Until a decision is made by the court, will continue TPN and with continung speech eval hypOkalemia : repleted and resolved mild bradycardia : resolved ,atenolol restarted, stable vitals hypothyriodism- tsh elevated ,Free t4-normal, continue levothyroxine iv Pressure (decubitus) ulcer/injury coccyx Stage 2: continue position change,iv PPN and other recommendation per wound nurse Seizure disorder on IV Depakote until able to take PO atypical depressive disorder/ Neuro Behavioral dysfunction continue home medications patient is resident of [facility] and has a guardian--Spoke to guardian Stephanie Francisco [phone] about treatment plan, code status to be reconsider to DNR by court--try to update today 04/03 no answer.. Should proceed with PEG DVT prophylaxis: Heparin Full code ongoing hospitlization need:treatement of sepsis due to pneuomina, on IV PPN due to dysphagia. Time Spent With Patient Time: Total time managing care of this patient today ____ minutes. Quality Stroke Does the patient have a stroke diagnosis?: No VTE Prior VTE?: No VTE Risk Level:: Medical - moderate - high VTE Device Contraindication: Treatment Not Indicated VTE Drug Contraindication: N/A - Med Ordered
[2023-04-08 11:35] LABS: Glucose, Whole Blood 159 mg/dL (60-115)
[2023-04-08 12:00] VITALS: BP 129/78; PULSE 112; RESP 20; TEMP 37.1; O2SAT 93
[2023-04-08] MEDS: Insulin Lispro 100 UNIT/ML 3 ML VIAL SUBCUT (12:10)
[2023-04-08] MEDS: Nystatin Powder 15 GM BOTTLE 1 APPL TOPICAL ×2 (12:31→21:15)
--- NOTE | 2023-04-08 14:56 | HO.SKINPHOTO ---
Location: buttocks Category: Stage: unstageable Length: Width: Depth: cm Location: Category: Stage: Length: Width: Depth: cm Location: Category: Stage: Length: Width: Depth: cm Location: Category: Stage: Length: Width: Depth: cm Location: Category: Stage: Length: Width: Depth: cm Location: Category: Stage: Length: Width: Depth: cm
[2023-04-08 15:15] VITALS: BP 121/65; PULSE 104; RESP 16; TEMP 37.2; O2SAT 95
[2023-04-08 16:18] LABS: Glucose, Whole Blood 134 mg/dL (60-115)
[2023-04-08 18:04] LABS: Glucose, Whole Blood 125 mg/dL (60-115)
[2023-04-08 19:29] VITALS: BP 123/70; PULSE 107; RESP 19; TEMP 36.9; O2SAT 97
[2023-04-08] MEDS: Mirtazapine 30 MG TABLET PO (21:14)
[2023-04-08] MEDS: Parenteral Nutrition 1,800 ML 75 ML IV (22:52)
[2023-04-09] VITALS (8 sets, daily range): BP systolic 99–127; BP diastolic 57–73; PULSE 94–123; RESP 18–20; TEMP 36.6–38.4; O2SAT 94–99
[2023-04-09] MEDS: Acetaminophen Supp 650 MG SUPP.RECT PR ×2 (00:06→08:49)
--- NOTE | 2023-04-09 00:23 | P.EN_ITS ---
Event Note Date of Service: 04/09/23 Event Note: Noted patient was febrile and tachycardic. Meets sepsis criteria. Resuscitating with IV crystalloids. Obtaining lactic acid and blood culture. Initiating empiric IV antibiotics. Concern for aspiration. Obtaining chest x- ray Time Spent With Patient Time: Total time managing care of this patient today ____ minutes.
[2023-04-09] MEDS: 0.9 % Sodium Chloride 1,000 ML 999 ML IV (00:41)
[2023-04-09] MEDS: Heparin Sodium,Porcine 5,000 UNIT/ML VIAL 5000 UNIT SUBCUT ×4 (00:41→23:57)
[2023-04-09 00:53] LABS: Lactic Acid 1.8 mmol/L (0.5-2.0)
[2023-04-09 01:25] LABS: Glucose, Whole Blood 116 mg/dL (60-115)
[2023-04-09] MEDS: Piperacillin Sodium/Tazobactam 4.5 GM in 0.9 % Sodium Chloride 100 ML IV ×5 (01:43→23:57)
[2023-04-09] MEDS: Levothyroxine Sodium 100 MCG/5 ML VIAL 12.5 MCG IVPUSH (06:19)
[2023-04-09 06:40] LABS: Glucose, Whole Blood 132 mg/dL (60-115)
[2023-04-09] MEDS: Collagenase Clostridium Hist. 30 GM TUBE 1 APPL TOPICAL (07:17)
[2023-04-09] MEDS: Nystatin Powder 15 GM BOTTLE 1 APPL TOPICAL ×2 (07:17→20:32)
[2023-04-09] MEDS: Memantine HCl 5 MG TABLET PO (07:24)
[2023-04-09] MEDS: Sertraline HCL 25 MG TABLET PO (07:24)
[2023-04-09] MEDS: 0.9 % Sodium Chloride Flush 3 ML SYRINGE IVFLUSH ×3 (07:31→20:32)
[2023-04-09] MEDS: Valproic Acid (as Sodium Salt) 500 MG in Dextrose 5 % 50 ML 55 MG IV ×2 (07:32→20:36)
[2023-04-09] MEDS: atenoloL 25 MG TABLET PO (08:44)
[2023-04-09 09:19] LABS: Anion Gap 14 (12-20); Blood Urea Nitrogen 9 mg/dL (9-16); Calcium 9.3 mg/dL (8.4-10.2); Carbon Dioxide 19 mmol/L (22-29); Chloride 108 mmol/L (96-108); Creatinine Clr Calc Pharmacy 115.2; Estimated Glomerular Filt Rate > 60; Glucose Random 123 mg/dL (60-115); Magnesium 2.6 mg/dL (1.6-2.6); Phosphorus 4.4 mg/dL (2.7-4.5); Sodium 136 mmol/L (135-145); Triglycerides 115 mg/dL (<150)
--- NOTE | 2023-04-09 10:57 | P.PNIM_ITS ---
Subjective Subjective Date of Service: 04/09/23 Interval History: No new issues, did better with swallowing on 04/08 Post covid hypoxia Physical Exam 2 Vital Signs: Vital Signs: Last Vital Signs Temp 99.2 F 04/09/23 10:14 Pulse 123 H 04/09/23 08:00 Resp 18 04/09/23 08:00 BP 116/57 L 04/09/23 08:00 Pulse Ox 99 04/09/23 08:00 O2 Del Method Room Air 04/09/23 08:00 O2 Flow Rate 2 03/30/23 08:00 Oxygen Flow Rate 4 03/25/23 00:10 BMI result Body Mass Index 22.1 Const: Other: General awake alert, but not conversing Neck supple no JVD. CVS regular rate rhythm, Respiratory lungs clear to auscultation, few rhonchi, no respiratory distress, no wheeze, Gastrointestinal abdomen soft, non tender, bowel sounds audible, no guarding , no rigidity. Extremities no edema, Neuro nonfocal ,speech clear, verbalized minimally. Skin decub ulcer--see picture Objective Data Active Medications Acetaminophen (Acetaminophen Supp 650 Mg Supp.Rect) 650 mg [place] Q6H PRN PRN Reason: Fever Last Admin: 04/09/23 00:06 Dose: 650 mg Documented By: SIXTO Acetaminophen (Acetaminophen Supp 650 Mg Supp.Rect) 650 mg [place] Q6H PRN PRN Reason: Pain, Mild (Pain Scale 1-3) Last Admin: 04/09/23 08:49 Dose: 650 mg Documented By: AMADOR Atenolol (Atenolol 25 Mg Tablet) 25 mg PO DAILY [facility]; Protocol Last Admin: 04/09/23 08:44 Dose: 25 mg Documented By: AMADOR Atorvastatin Calcium (Atorvastatin Calcium 10 Mg Tablet) 10 mg PO DAILY [facility] Last Admin: 03/26/23 08:44 Dose: 10 mg Documented By: ROBERT Collagenase (Collagenase Clostridium Hist. 30 Gm Tube) 1 appl TOPICAL DAILY [facility]; Protocol Last Admin: 04/09/23 07:17 Dose: 1 appl Documented By: AMADOR Dextrose (Dextrose 50 % 25 Gm/50 Ml Syringe) 25 gm IVPUSH Q15M PRN; Protocol PRN Reason: per Hypoglycemia Standing Ord. Last Admin: 04/06/23 23:22 Dose: 25 gm Documented By: CARLOS ENRIQUE Glucose (Glucose Gel 15 Gm Gel..Gram.) 15 gm PO Q15M PRN; Protocol PRN Reason: per Hypoglycemia Standing Ord. Guaifenesin (Guaifenesin 200 Mg/10 Ml 10 Ml Liquid) 10 ml PO Q4H PRN PRN Reason: Cough Last Admin: 03/28/23 09:25 Dose: 10 ml Documented By: ROBERT Heparin Sodium (Porcine) (Heparin Sodium,Porcine 5,000 Unit/Ml Vial) 5,000 unit SUBCUT Q8H [facility] Last Admin: 04/09/23 07:17 Dose: 5,000 unit Documented By: AMADOR Hydroxyzine HCl (Hydroxyzine Hcl 25 Mg Tablet) 25 mg PO BEDTIME PRN PRN Reason: Itching Valproic Acid 500 mg/ Dextrose 55 mls @ 55 mls/hr IV Q12H [facility] Last Infusion: 04/09/23 08:48 Dose: Infused Documented By: AMADOR Nutrition (Parenteral) (Parenteral Nutrition) 1,800 mls @ 75 mls/hr IV .Q24H [facility]; Protocol Stop: 04/09/23 20:59 Last Admin: 04/08/23 22:52 Dose: 75 mls/hr Documented By: SIXTO Piperacillin Sod/Tazobactam (Sod 4.5 gm/ Sodium Chloride) 100 mls @ 200 mls/hr IV Q6H [facility] Last Infusion: 04/09/23 07:16 Dose: Infused Documented By: AMADOR Insulin Human Lispro (Insulin Lispro 100 Unit/Ml 3 Ml Vial) 0 unit SUBCUT Q6H [facility]; Protocol Last Admin: 04/09/23 06:39 Dose: Not Given Documented By: SIXTO Non-Admin Reason: doesnt need coverage Levothyroxine Sodium (Levothyroxine Sodium 100 Mcg/5 Ml Vial) 12.5 mcg IVPUSH DAILY@0600 [facility] Last Admin: 04/09/23 06:19 Dose: 12.5 mcg Documented By: SIXTO Memantine (Memantine Hcl 5 Mg Tablet) 5 mg PO DAILY [facility] Last Admin: 04/09/23 07:24 Dose: 5 mg Documented By: AMADOR Mirtazapine (Mirtazapine 30 Mg Tablet) 30 mg PO BEDTIME [facility] Last Admin: 04/08/23 21:14 Dose: 30 mg Documented By: SIXTO Nystatin (Nystatin Powder 15 Gm Bottle) 1 appl TOPICAL BID [facility]; Protocol Last Admin: 04/09/23 07:17 Dose: 1 appl Documented By: AMADOR Pharmacy Consult (Consult Rx Parenteral Nutrition Ordering) 1 each MISCELLANE DAILY PRN PRN Reason: Consult order Sertraline HCl (Sertraline Hcl 25 Mg Tablet) 25 mg PO DAILY [facility] Last Admin: 04/09/23 07:24 Dose: 25 mg Documented By: AMADOR Sodium Chloride (0.9 % Sodium Chloride Flush 3 Ml Syringe) 3 ml IVFLUSH QSHIFT [facility] Last Admin: 04/09/23 07:31 Dose: 3 ml Documented By: AMADOR Labs 03/28/23 06:26 04/09/23 08:03 Labs: Laboratory Results - last 24 hr 04/08/23 04/08/23 04/08/23 11:25 16:10 17:59 Anion Gap Estim Creat Clear Calc Estimated GFR POC Glucose 159 H 134 H 125 H Random Glucose Lactic Acid Calcium Phosphorus Magnesium Triglycerides 04/08/23 04/09/23 04/09/23 23:57 00:37 06:35 Anion Gap Estim Creat Clear Calc Estimated GFR POC Glucose 116 H 132 H Random Glucose Lactic Acid 1.8 Calcium Phosphorus Magnesium Triglycerides 04/09/23 08:03 Anion Gap 14 Estim Creat Clear Calc 115.2 Estimated GFR > 60 POC Glucose Random Glucose 123 H Lactic Acid Calcium 9.3 Phosphorus 4.4 Magnesium 2.6 Triglycerides 115 Assessment and Plan (1) Hypokalemia: Status: Acute (2) Aspiration into lower respiratory tract: Status: Acute (3) COVID-19: Status: Acute Plan 72 year old male with history of cognitive and neurobehavior dysfunction, seizure desorder here with acute hypoxic resp failure, aspiration pneumonitis and Covid Acute hypoxic respiratory failure due to covid-- hypoxia resolved, on RA 95%, repeat covid if negative, stop isolation Sepsis due to aspiration pneumonia--completed 7 days of Zosyn Metabolic Encephalopathy due to acute illness and underlying cognitive desorder, appear to be at baseline Hypernatremia resolved Dysphagiia. He has been on parenteral nutrition IV PPN started on (03/27/23) due dyspahagia and failed multiple swallow evals but did ok with Puree on 04/08. Will stop PPN if able to take in enough calory over the weekend. Guardian would not want a PEG. Speech to continue to follow hypOkalemia : repleted and resolved mild bradycardia : resolved ,atenolol restarted, stable vitals hypothyriodism- tsh elevated ,Free t4-normal, continue levothyroxine iv Pressure (decubitus) ulcer/injury coccyx Stage 2: continue position change,iv PPN and other recommendation per wound nurse Seizure disorder on IV Depakote until able to take PO atypical depressive disorder/ Neuro Behavioral dysfunction continue home medications patient is resident of [facility] and has a guardian--Spoke to guardian Stephanie Singh [phone] about treatment plan, code status to be reconsider to DNR by court--try to update today 04/03 no answer.. Should proceed with PEG DVT prophylaxis: Heparin Full code, guardian is filling court docuement to have status change to DNR/DNI. Also pending Placement. ongoing hospitlization need:treatement of sepsis due to pneuomina, on IV PPN due to dysphagia. Time Spent With Patient Time: Total time managing care of this patient today ____ minutes. Quality Stroke Does the patient have a stroke diagnosis?: No VTE Prior VTE?: No VTE Risk Level:: Medical - moderate - high VTE Device Contraindication: Treatment Not Indicated VTE Drug Contraindication: N/A - Med Ordered
[2023-04-09 11:12] LABS: Glucose, Whole Blood 169 mg/dL (60-115)
--- NOTE | 2023-04-09 11:31 | MHC.CLN ---
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
[2023-04-09] MEDS: Insulin Lispro 100 UNIT/ML 3 ML VIAL SUBCUT (12:09)
--- NOTE | 2023-04-09 13:34 | MHC.SL.SWA ---
Speech Pathologist Impression: Risk of aspiration, oropharyngeal dysphagia Risk of Aspiration Due to: Neurological Condition Reduced Cognition Dysphasia Diet Status: Downgrade to NPO. Frequent oral care, moistened swab for comfort, elevate head of bed at least 30 degrees Liquid Consistency and Strategies for Safe Swallow: Liquid Intake Recommendation: NPO Solid Food Consistency: Dietary Recommendations: NPO Additional Modifications to Solid Foods: Recommend DOWNGRADE to NPO status, as pt observed w/ no response to presentation of PO despite significant cuing. Pt not forming bolus, no oral manipulation, absent swallow. 100% of bolus was manually removed by RECOVERY OPERATOR HELPER. Notified MD and RN via [employer] Message. Pt w/ variable tolerance of PO throughout his hospital course, more frequently refusing to open his mouth for PO or pocketing and not swallowing despite modification of diet. Recommend consult w/ G.I. to determine if pt is a candidate for alternate means of nutrition (short term vs. skilled nursing). RECOVERY OPERATOR HELPER will continue to follow, re-evaluate when indicated. Oral Medication Intake: NPO Please contact the pharmacy regarding appropriate crushable or liquid drug formulations that are available whenever modified delivery is recommended. Supervision While Eating and Drinking for Safe Swallow: PO with RECOVERY OPERATOR HELPER Swallowing Recommended Treatments: Compens. Strategy Educat. Recommendation for Speech: Inpatient Speech Therapy Pt consistently presenting w/ neglect of bolus/oral holding and significantly delayed swallow after extensive cuing and encouragement. Recommend continued NPO with PO trials with RECOVERY OPERATOR HELPER. Continue w/ frequent oral care, ice chips for comfort ok w/ supervision of RECOVERY OPERATOR HELPER mail list processor. Per MD, there is ongoing discussion with guardian regarding PEG, that may require court action. [ End ] Frequency/Duration: M-F while inpatient. Date Range for Service Req: Timeline to reassess: Instructional Assistant Clinican/Clinical Fellow: No Supervisory Statement: I have reviewed and agree with the student/clinical fellow's documentation: N/A Speech Language Pathologist: Allyssa Nolasco M.A., CCC-RECOVERY OPERATOR HELPER
--- NOTE | 2023-04-09 14:10 | MHC.CM.PN ---
PT AWAITING SNF PLACEMENT GUARDIAN CURRENTLY DOES NOT HAVE RIGHT TO PLACE RIGHT TO PLACE AND CODE STATUS CHANGE BEING FILED CURRENT DCP, TAMI LECHUGA VS ALTERNATE SNF BLS TRANSPORT GUARDIAN: DARIEL KAUR [phone]
[2023-04-09 18:20] LABS: Glucose, Whole Blood 133 mg/dL (60-115)
[2023-04-09] MEDS: Parenteral Nutrition 1,800 ML 75 ML IV (20:38)
[2023-04-09 23:47] LABS: Glucose, Whole Blood 125 mg/dL (60-115)
[2023-04-10 03:47] VITALS: BP 116/67; PULSE 112; RESP 18; TEMP 37; O2SAT 95
[2023-04-10 06:22] LABS: Triglycerides 107 mg/dL (<150)
[2023-04-10 06:22] LABS: Glucose, Whole Blood 147 mg/dL (60-115)
[2023-04-10] MEDS: Levothyroxine Sodium 100 MCG/5 ML VIAL 12.5 MCG IVPUSH (06:40)
[2023-04-10] MEDS: Piperacillin Sodium/Tazobactam 4.5 GM in 0.9 % Sodium Chloride 100 ML IV ×3 (06:40→17:09)
[2023-04-10] MEDS: Heparin Sodium,Porcine 5,000 UNIT/ML VIAL 5000 UNIT SUBCUT ×2 (06:40→17:10)
[2023-04-10 07:44] VITALS: BP 114/58; PULSE 114; RESP 18; TEMP 39.7; O2SAT 92
--- NOTE | 2023-04-10 07:56 | P.PNIM_ITS ---
Subjective Subjective Date of Service: 04/10/23 Interval History: Has a temp of 103, warm, tachycardic and O2 sat on lower side. Physical Exam 2 Vital Signs: Vital Signs: Last Vital Signs Temp 103.5 F H 04/10/23 07:44 Pulse 114 H 04/10/23 07:44 Resp 18 04/10/23 07:44 BP 114/58 L 04/10/23 07:44 Pulse Ox 92 04/10/23 07:44 O2 Del Method Room Air 04/10/23 07:44 O2 Flow Rate 2 03/30/23 08:00 Oxygen Flow Rate 4 03/25/23 00:10 BMI result Body Mass Index 22.1 Const: Other: General awake alert, but not conversing Neck supple no JVD. CVS regular rate rhythm, Respiratory lungs clear to auscultation, few rhonchi, no respiratory distress, no wheeze, Gastrointestinal abdomen soft, non tender, bowel sounds audible, no guarding , no rigidity. Extremities no edema, Neuro nonfocal ,speech clear, verbalized minimally. Skin decub ulcer--see picture for decub ulcer, warm to touch this mornin Objective Data Active Medications Acetaminophen (Acetaminophen Supp 650 Mg Supp.Rect) 650 mg [place] Q6H PRN PRN Reason: Fever Last Admin: 04/09/23 00:06 Dose: 650 mg Documented By: SIXTO Acetaminophen (Acetaminophen Supp 650 Mg Supp.Rect) 650 mg [place] Q6H PRN PRN Reason: Pain, Mild (Pain Scale 1-3) Last Admin: 04/09/23 08:49 Dose: 650 mg Documented By: AMADOR Atenolol (Atenolol 25 Mg Tablet) 25 mg PO DAILY [facility]; Protocol Last Admin: 04/09/23 08:44 Dose: 25 mg Documented By: AMADOR Atorvastatin Calcium (Atorvastatin Calcium 10 Mg Tablet) 10 mg PO DAILY [facility] Last Admin: 03/26/23 08:44 Dose: 10 mg Documented By: ROBERT Collagenase (Collagenase Clostridium Hist. 30 Gm Tube) 1 appl TOPICAL DAILY [facility]; Protocol Last Admin: 04/09/23 07:17 Dose: 1 appl Documented By: AMADOR Dextrose (Dextrose 50 % 25 Gm/50 Ml Syringe) 25 gm IVPUSH Q15M PRN; Protocol PRN Reason: per Hypoglycemia Standing Ord. Last Admin: 04/06/23 23:22 Dose: 25 gm Documented By: CARLOS ENRIQUE Glucose (Glucose Gel 15 Gm Gel..Gram.) 15 gm PO Q15M PRN; Protocol PRN Reason: per Hypoglycemia Standing Ord. Guaifenesin (Guaifenesin 200 Mg/10 Ml 10 Ml Liquid) 10 ml PO Q4H PRN PRN Reason: Cough Last Admin: 03/28/23 09:25 Dose: 10 ml Documented By: ROBERT Heparin Sodium (Porcine) (Heparin Sodium,Porcine 5,000 Unit/Ml Vial) 5,000 unit SUBCUT Q8H [facility] Last Admin: 04/10/23 06:40 Dose: 5,000 unit Documented By: NETTE Hydroxyzine HCl (Hydroxyzine Hcl 25 Mg Tablet) 25 mg PO BEDTIME PRN PRN Reason: Itching Valproic Acid 500 mg/ Dextrose 55 mls @ 55 mls/hr IV Q12H [facility] Last Infusion: 04/09/23 21:57 Dose: Infused Documented By: GERMAN Piperacillin Sod/Tazobactam (Sod 4.5 gm/ Sodium Chloride) 100 mls @ 200 mls/hr IV Q6H [facility] Last Admin: 04/10/23 06:40 Dose: 200 mls/hr Documented By: NETTE Nutrition (Parenteral) (Parenteral Nutrition) 1,800 mls @ 75 mls/hr IV .Q24H [facility]; Protocol Stop: 04/10/23 20:59 Last Admin: 04/09/23 20:38 Dose: 75 mls/hr Documented By: GERMAN Insulin Human Lispro (Insulin Lispro 100 Unit/Ml 3 Ml Vial) 0 unit SUBCUT Q6H [facility]; Protocol Last Admin: 04/10/23 06:25 Dose: Not Given Documented By: NETTE Non-Admin Reason: No Insulin Coverage Levothyroxine Sodium (Levothyroxine Sodium 100 Mcg/5 Ml Vial) 12.5 mcg IVPUSH DAILY@0600 [facility] Last Admin: 04/10/23 06:40 Dose: 12.5 mcg Documented By: NETTE Memantine (Memantine Hcl 5 Mg Tablet) 5 mg PO DAILY [facility] Last Admin: 04/09/23 07:24 Dose: 5 mg Documented By: AMADOR Mirtazapine (Mirtazapine 30 Mg Tablet) 30 mg PO BEDTIME [facility] Last Admin: 04/09/23 20:32 Dose: Not Given Documented By: GERMAN Non-Admin Reason: NPO Nystatin (Nystatin Powder 15 Gm Bottle) 1 appl TOPICAL BID [facility]; Protocol Last Admin: 04/09/23 20:32 Dose: 1 appl Documented By: GERMAN Pharmacy Consult (Consult Rx Parenteral Nutrition Ordering) 1 each MISCELLANE DAILY PRN PRN Reason: Consult order Sertraline HCl (Sertraline Hcl 25 Mg Tablet) 25 mg PO DAILY [facility] Last Admin: 04/09/23 07:24 Dose: 25 mg Documented By: AMADOR Sodium Chloride (0.9 % Sodium Chloride Flush 3 Ml Syringe) 3 ml IVFLUSH QSHIFT [facility] Last Admin: 04/09/23 20:32 Dose: 3 ml Documented By: GERMAN Labs 03/28/23 06:26 04/09/23 08:03 Labs: Laboratory Results - last 24 hr 04/09/23 04/09/23 04/09/23 08:03 11:04 18:16 Hold Purple Top Anion Gap 14 Estim Creat Clear Calc 115.2 Estimated GFR > 60 POC Glucose 169 H 133 H Random Glucose 123 H Calcium 9.3 Phosphorus 4.4 Magnesium 2.6 Triglycerides 115 04/09/23 04/10/23 04/10/23 23:30 05:45 06:18 Hold Purple Top SEE NOTE Anion Gap Estim Creat Clear Calc Estimated GFR POC Glucose 125 H 147 H Random Glucose Calcium Phosphorus Magnesium Triglycerides 107 Microbiology Microbiology Results: Microbiology 04/09/23 00:37 Blood Culture - Preliminary Blood - Venous No growth after 24 hours. 04/09/23 00:37 Blood Culture - Preliminary Blood - Venous No growth after 24 hours. Assessment and Plan (1) Hypokalemia: Status: Acute (2) Aspiration into lower respiratory tract: Status: Acute (3) COVID-19: Status: Acute Plan 72 year old male with history of cognitive and neurobehavior dysfunction, seizure desorder here with acute hypoxic resp failure, aspiration pneumonitis and Covid New issues 04/10 Fever, tachycardia, low O2.. Sepsis w/u with CXR, UA, Blood culture, CBC, lactic acid. Concern of aspiration again Old issues Acute hypoxic respiratory failure due to covid-- hypoxia resolved, on RA 95%, repeat covid if negative, stop isolation Sepsis due to aspiration pneumonia--completed 7 days of Zosyn Metabolic Encephalopathy due to acute illness and underlying cognitive desorder, appear to be at baseline Hypernatremia resolved Dysphagiia. He has been on parenteral nutrition IV PPN started on (03/27/23) due dyspahagia and failed multiple swallow evals but did ok with Puree on 04/08. Will stop PPN if able to take in enough calory over the weekend. Guardian would not want a PEG. Speech to continue to follow hypOkalemia : repleted and resolved mild bradycardia : resolved ,atenolol restarted, stable vitals hypothyriodism- tsh elevated ,Free t4-normal, continue levothyroxine iv Pressure (decubitus) ulcer/injury coccyx Stage 2: continue position change,iv PPN and other recommendation per wound nurse Seizure disorder on IV Depakote until able to take PO atypical depressive disorder/ Neuro Behavioral dysfunction continue home medications patient is resident of [facility] and has a guardian--Spoke to guardian Stephanie Singh [phone] about treatment plan, code status to be reconsider to DNR by court--try to update today 04/03 no answer.. Should proceed with PEG DVT prophylaxis: Heparin Full code, guardian is filling court docuement to have status change to DNR/DNI. Also pending Placement. ongoing hospitlization need:treatement of sepsis due to pneuomina, on IV PPN due to dysphagia. Time Spent With Patient Time: Total time managing care of this patient today ____ minutes. Quality Stroke Does the patient have a stroke diagnosis?: No VTE Prior VTE?: No VTE Risk Level:: Medical - moderate - high VTE Device Contraindication: Treatment Not Indicated VTE Drug Contraindication: N/A - Med Ordered
[2023-04-10] MEDS: Valproic Acid (as Sodium Salt) 500 MG in Dextrose 5 % 50 ML 55 MG IV ×2 (08:13→22:19)
[2023-04-10] MEDS: Collagenase Clostridium Hist. 30 GM TUBE 1 APPL TOPICAL (08:18)
[2023-04-10] MEDS: Memantine HCl 5 MG TABLET PO (08:18)
[2023-04-10] MEDS: Acetaminophen Supp 650 MG SUPP.RECT PR (08:18)
[2023-04-10] MEDS: Nystatin Powder 15 GM BOTTLE 1 APPL TOPICAL ×2 (08:18→21:31)
[2023-04-10] MEDS: Sertraline HCL 25 MG TABLET PO (08:18)
[2023-04-10] MEDS: atenoloL 25 MG TABLET PO (08:18)
[2023-04-10] MEDS: 0.9 % Sodium Chloride Flush 3 ML SYRINGE IVFLUSH ×2 (08:19→13:03)
[2023-04-10 09:33] LABS: Appearance Urine Clear; Color Urine Yellow; Glucose Urine UA Negative (Negative); Leukocyte Esterase Urine Negative (Negative); Nitrite Urine Negative (Negative); Specific Gravity - Urine >= 1.030 (1.005-1.025); Urine Blood Negative (Negative); Urine Ketones Negative (Negative); Urine Protein Negative (Neg-Trace)
[2023-04-10 09:45] LABS: PLT CLUMP 1
[2023-04-10 09:46] LABS: Hematocrit 33.4 % (42.0-52.0); Hemoglobin 10.7 g/dl (14.0-18.0); Mean Corpuscular Hemoglobin 30.8 pg (27.0-33.0); Mean Corpuscular Volume 96.3 fL (80.0-98.0); Mean Platelet Volume 9.5 fL (9.4-12.4); Red Blood Count 3.47 X10*6/uL (4.60-5.80); Red Cell Distribution Width 16.6 % (11.0-16.0)
[2023-04-10 09:53] LABS: Platelet Count 141 X10*3/uL (160-400); White Blood Count 6.9 X10*3/uL (4.8-10.8)
[2023-04-10 09:56] LABS: Bacteria Urine None Seen (None Seen); RBC Urine 0-2 /HPF (0-2); Squamous Epithelial Cell Urine 0-2 /HPF (0-2); WBC Urine 0-5 /HPF (0-5)
[2023-04-10 10:04] LABS: Lactic Acid 1.7 mmol/L (0.5-2.0)
[2023-04-10 10:15] LABS: Anion Gap 12 (12-20)
[2023-04-10 10:18] LABS: Blood Urea Nitrogen 12 mg/dL (9-16); Calcium 8.7 mg/dL (8.4-10.2); Carbon Dioxide 21 mmol/L (22-29); Chloride 104 mmol/L (96-108); Creatinine Clr Calc Pharmacy 109.1; Estimated Glomerular Filt Rate > 60; Glucose Random 143 mg/dL (60-115); Magnesium 2.2 mg/dL (1.6-2.6); Phosphorus 3.8 mg/dL (2.7-4.5); Potassium 4.2 mmol/L (3.3-5.1); Sodium 133 mmol/L (135-145)
[2023-04-10 12:00] VITALS: BP 103/55; PULSE 87; RESP 18; TEMP 38; O2SAT 94
[2023-04-10 12:20] LABS: Glucose, Whole Blood 132 mg/dL (60-115)
[2023-04-10 16:00] VITALS: BP 98/58; PULSE 81; RESP 16; TEMP 37; O2SAT 94
[2023-04-10 17:56] LABS: Glucose, Whole Blood 107 mg/dL (60-115)
[2023-04-10 19:30] VITALS: BP 99/59; PULSE 81; RESP 16; TEMP 37.1; O2SAT 95
[2023-04-10] MEDS: Parenteral Nutrition 1,800 ML 75 ML IV (21:25)
[2023-04-10 23:55] VITALS: BP 102/59; PULSE 87; RESP 20; TEMP 37.6; O2SAT 92
[2023-04-11] MEDS: Piperacillin Sodium/Tazobactam 4.5 GM in 0.9 % Sodium Chloride 100 ML IV ×4 (00:20→17:04)
[2023-04-11] MEDS: Heparin Sodium,Porcine 5,000 UNIT/ML VIAL 5000 UNIT SUBCUT ×3 (00:21→16:02)
[2023-04-11 01:00] LABS: Glucose, Whole Blood 106 mg/dL (60-115)
[2023-04-11 04:00] VITALS: BP 120/75; PULSE 92; RESP 20; TEMP 37.7; O2SAT 92
[2023-04-11 05:20] LABS: Glucose, Whole Blood 134 mg/dL (60-115)
[2023-04-11] MEDS: Levothyroxine Sodium 100 MCG/5 ML VIAL 12.5 MCG IVPUSH (05:28)
[2023-04-11 07:26] VITALS: BP 120/60; PULSE 88; RESP 18; TEMP 37.3; O2SAT 91
[2023-04-11 07:52] LABS: Triglycerides 126 mg/dL (<150)
[2023-04-11 08:17] LABS: Glucose, Whole Blood 142 mg/dL (60-115)
[2023-04-11] MEDS: Valproic Acid (as Sodium Salt) 500 MG in Dextrose 5 % 50 ML 55 MG IV ×2 (09:05→19:51)
[2023-04-11] MEDS: Sertraline HCL 25 MG TABLET PO (09:05)
[2023-04-11] MEDS: atenoloL 25 MG TABLET PO (09:05)
[2023-04-11] MEDS: Memantine HCl 5 MG TABLET PO (09:06)
[2023-04-11] MEDS: Nystatin Powder 15 GM BOTTLE 1 APPL TOPICAL ×2 (09:06→20:05)
[2023-04-11] MEDS: Collagenase Clostridium Hist. 30 GM TUBE 1 APPL TOPICAL (09:06)
[2023-04-11] MEDS: 0.9 % Sodium Chloride Flush 3 ML SYRINGE IVFLUSH (09:06)
--- NOTE | 2023-04-11 10:07 | HO.PM.IMPN ---
Subjective Subjective Date of Service: 04/12/23 Interval History: Fever resolved, lactic acid normal, CXR no PNA, UA negative for UTI, cultures pending, O2 sat remains marginally low Physical Exam Vital Signs: Vital Signs: Last Vital Signs Temp 99.1 F 04/11/23 07:26 Pulse 88 04/11/23 07:26 Resp 18 04/11/23 07:26 BP 120/60 04/11/23 07:26 Pulse Ox 91 L 04/11/23 07:26 O2 Del Method Room Air 04/11/23 07:26 O2 Flow Rate 2 03/30/23 08:00 Oxygen Flow Rate 4 03/25/23 00:10 BMI result Body Mass Index 22.1 Const: Other: General awake alert, but not conversing Neck supple no JVD. CVS regular rate rhythm, Respiratory lungs clear to auscultation, few rhonchi, no respiratory distress, no wheeze, Gastrointestinal abdomen soft, non tender, bowel sounds audible, no guarding , no rigidity. Extremities no edema, Neuro nonfocal ,speech clear, verbalized minimally. Skin decub ulcer--see picture for decub ulcer, warm to touch this mornin Objective Data Active Medications Acetaminophen (Acetaminophen Supp 650 Mg Supp.Rect) 650 mg MD Q6H PRN PRN Reason: Fever Last Admin: 04/10/23 08:18 Dose: 650 mg Documented By: JOAQUÍN Acetaminophen (Acetaminophen Supp 650 Mg Supp.Rect) 650 mg MD Q6H PRN PRN Reason: Pain, Mild (Pain Scale 1-3) Last Admin: 04/09/23 08:49 Dose: 650 mg Documented By: AMADOR Atenolol (Atenolol 25 Mg Tablet) 25 mg PO DAILY [facility]; Protocol Last Admin: 04/11/23 09:05 Dose: 25 mg Documented By: JOAQUÍN Atorvastatin Calcium (Atorvastatin Calcium 10 Mg Tablet) 10 mg PO DAILY [facility] Last Admin: 03/26/23 08:44 Dose: 10 mg Documented By: ROBERT Collagenase (Collagenase Clostridium Hist. 30 Gm Tube) 1 appl TOPICAL DAILY [facility]; Protocol Last Admin: 04/11/23 09:06 Dose: 1 appl Documented By: JOAQUÍN Dextrose (Dextrose 50 % 25 Gm/50 Ml Syringe) 25 gm IVPUSH Q15M PRN; Protocol PRN Reason: per Hypoglycemia Standing Ord. Last Admin: 04/06/23 23:22 Dose: 25 gm Documented By: CARLOS ENRIQUE Glucose (Glucose Gel 15 Gm Gel..Gram.) 15 gm PO Q15M PRN; Protocol PRN Reason: per Hypoglycemia Standing Ord. Guaifenesin (Guaifenesin 200 Mg/10 Ml 10 Ml Liquid) 10 ml PO Q4H PRN PRN Reason: Cough Last Admin: 03/28/23 09:25 Dose: 10 ml Documented By: ROBERT Heparin Sodium (Porcine) (Heparin Sodium,Porcine 5,000 Unit/Ml Vial) 5,000 unit SUBCUT Q8H [facility] Last Admin: 04/11/23 09:04 Dose: 5,000 unit Documented By: JOAQUÍN Hydroxyzine HCl (Hydroxyzine Hcl 25 Mg Tablet) 25 mg PO BEDTIME PRN PRN Reason: Itching Valproic Acid 500 mg/ Dextrose 55 mls @ 55 mls/hr IV Q12H [facility] Last Admin: 04/11/23 09:05 Dose: 55 mls/hr Documented By: JOAQUÍN Piperacillin Sod/Tazobactam (Sod 4.5 gm/ Sodium Chloride) 100 mls @ 200 mls/hr IV Q6H [facility] Last Infusion: 04/11/23 06:08 Dose: Infused Documented By: SANTOSH Nutrition (Parenteral) (Parenteral Nutrition) 1,800 mls @ 75 mls/hr IV .Q24H [facility]; Protocol Stop: 04/11/23 20:59 Last Admin: 04/10/23 21:25 Dose: 75 mls/hr Documented By: SANTOSH Insulin Human Lispro (Insulin Lispro 100 Unit/Ml 3 Ml Vial) 0 unit SUBCUT Q6H [facility]; Protocol Last Admin: 04/11/23 05:27 Dose: Not Given Documented By: SANTOSH Non-Admin Reason: No Insulin Coverage Levothyroxine Sodium (Levothyroxine Sodium 100 Mcg/5 Ml Vial) 12.5 mcg IVPUSH DAILY@0600 [facility] Last Admin: 04/11/23 05:28 Dose: 12.5 mcg Documented By: SANTOSH Memantine (Memantine Hcl 5 Mg Tablet) 5 mg PO DAILY [facility] Last Admin: 04/11/23 09:06 Dose: 5 mg Documented By: JOAQUÍN Mirtazapine (Mirtazapine 30 Mg Tablet) 30 mg PO BEDTIME [facility] Last Admin: 04/10/23 21:31 Dose: Not Given Documented By: SANTOSH Non-Admin Reason: NPO Nystatin (Nystatin Powder 15 Gm Bottle) 1 appl TOPICAL BID [facility]; Protocol Last Admin: 04/11/23 09:06 Dose: 1 appl Documented By: JOAQUÍN Pharmacy Consult (Consult Rx Parenteral Nutrition Ordering) 1 each MISCELLANE DAILY PRN PRN Reason: Consult order Sertraline HCl (Sertraline Hcl 25 Mg Tablet) 25 mg PO DAILY [facility] Last Admin: 04/11/23 09:05 Dose: 25 mg Documented By: JOAQUÍN Sodium Chloride (0.9 % Sodium Chloride Flush 3 Ml Syringe) 3 ml IVFLUSH QSHIFT [facility] Last Admin: 04/11/23 09:06 Dose: 3 ml Documented By: JOAQUÍN Labs 04/10/23 09:33 04/10/23 05:45 Labs: Laboratory Results - last 24 hr 04/10/23 04/10/23 04/10/23 05:45 12:02 17:52 Anion Gap 12 Estim Creat Clear Calc 109.1 Estimated GFR > 60 POC Glucose 132 H 107 Random Glucose 143 H Calcium 8.7 D Phosphorus 3.8 Magnesium 2.2 Triglycerides 04/11/23 04/11/23 04/11/23 00:55 05:15 07:18 Anion Gap Estim Creat Clear Calc Estimated GFR POC Glucose 106 134 H Random Glucose Calcium Phosphorus Magnesium Triglycerides 126 04/11/23 07:31 Anion Gap Estim Creat Clear Calc Estimated GFR POC Glucose 142 H Random Glucose Calcium Phosphorus Magnesium Triglycerides Microbiology Microbiology Results: Microbiology 04/10/23 09:32 Blood Culture - Preliminary Blood - Venous Prelim: GPR Gram Stain only 04/09/23 00:37 Blood Culture - Preliminary Blood - Venous No growth after 48 hours. 04/09/23 00:37 Blood Culture - Preliminary Blood - Venous No growth after 48 hours. Assessment and Plan (1) Aspiration into lower respiratory tract: Status: Acute (2) Hypoxia: Status: Acute (3) Dysphagia: Status: Inactive Plan 72 year old male with history of cognitive and neurobehavior dysfunction, seizure desorder here with acute hypoxic resp failure, aspiration pneumonitis and Covid New issues 04/10 Fever, tachycardia, low O2.. Sepsis w/u with CXR (negative, UA negative , Blood culture, CBC WNL, lactic acid normal). O2 sat on lower side Concern of aspiration again, will add empric Ceftriaxone and supplemental O2 Old issues Acute hypoxic respiratory failure due to covid-- hypoxia resolved, on RA 95%, repeat covid if negative, stop isolation Sepsis due to aspiration pneumonia--completed 7 days of Zosyn Metabolic Encephalopathy due to acute illness and underlying cognitive desorder, appear to be at baseline Hypernatremia resolved Dysphagiia. He has been on parenteral nutrition IV PPN started on (03/27/23) due dyspahagia and failed multiple swallow evals but did ok with Puree on 04/08. Will stop PPN if able to take in enough calory over the weekend. Guardian would not want a PEG. Speech to reassess tomorrow hypOkalemia : repleted and resolved mild bradycardia : resolved ,atenolol restarted, stable vitals hypothyriodism- tsh elevated ,Free t4-normal, continue levothyroxine iv Pressure (decubitus) ulcer/injury coccyx Stage 2: continue position change,iv PPN and other recommendation per wound nurse Seizure disorder on IV Depakote until able to take PO atypical depressive disorder/ Neuro Behavioral dysfunction continue home medications patient is resident of [facility] and has a guardian--Spoke to guardian Stephanie Singh [phone] about treatment plan, code status to be reconsider to DNR by court--try to update today 04/03 no answer.. Should proceed with PEG DVT prophylaxis: Heparin Full code, guardian is filling court docuement to have status change to DNR/DNI. Also pending Placement. ongoing hospitlization need:treatement of sepsis due to pneuomina, on IV PPN due to dysphagia. Time Spent With Patient Time: Total time managing care of this patient today ____ minutes. Quality Stroke Does the patient have a stroke diagnosis?: No VTE Prior VTE?: No VTE Risk Level:: Medical - moderate - high VTE Device Contraindication: Treatment Not Indicated VTE Drug Contraindication: N/A - Med Ordered
[2023-04-11] MEDS: cefTRIAXone sodium 1 GM in 0.9 % Sodium Chloride 50 ML IV (11:33)
[2023-04-11 11:50] LABS: Glucose, Whole Blood 161 mg/dL (60-115)
[2023-04-11] MEDS: Insulin Lispro 100 UNIT/ML 3 ML VIAL SUBCUT (12:43)
[2023-04-11 15:25] VITALS: BP 113/69; PULSE 83; RESP 18; TEMP 36.9; O2SAT 94
[2023-04-11 16:23] LABS: Glucose, Whole Blood 117 mg/dL (60-115)
[2023-04-11 19:34] VITALS: BP 116/58; PULSE 96; RESP 22; TEMP 37.3; O2SAT 98
[2023-04-11] MEDS: Dextrose 10 % 1,000 ML 75 ML IVCONT (22:27)
[2023-04-11 23:01] VITALS: BP 115/63; PULSE 85; RESP 16; TEMP 37.6; O2SAT 94
[2023-04-12] VITALS (8 sets, daily range): BP systolic 96–126; BP diastolic 54–70; PULSE 86–117; RESP 18–22; TEMP 36.1–39.1; O2SAT 88–97
[2023-04-12] LABS: Glucose, Whole Blood 111 mg/dL (60-115)
[2023-04-12] MEDS: Piperacillin Sodium/Tazobactam 4.5 GM in 0.9 % Sodium Chloride 100 ML IV ×4 (00:06→18:20)
[2023-04-12] MEDS: Heparin Sodium,Porcine 5,000 UNIT/ML VIAL 5000 UNIT SUBCUT ×3 (00:06→15:12)
[2023-04-12] MEDS: Parenteral Nutrition 1,800 ML 75 ML IV ×2 (00:07→20:48)
[2023-04-12] MEDS: Levothyroxine Sodium 100 MCG/5 ML VIAL 12.5 MCG IVPUSH (05:43)
[2023-04-12 05:58] LABS: Glucose, Whole Blood 129 mg/dL (60-115)
[2023-04-12 07:45] LABS: Triglycerides 141 mg/dL (<150)
--- NOTE | 2023-04-12 09:11 | P.PNIM_ITS ---
Subjective Subjective Date of Service: 04/12/23 Interval History: No more fever, O2 is better 94 on room air Physical Exam 2 Vital Signs: Vital Signs: Last Vital Signs Temp 97.6 F 04/12/23 07:17 Pulse 92 04/12/23 07:17 Resp 18 04/12/23 07:17 BP 108/59 L 04/12/23 07:17 Pulse Ox 94 04/12/23 07:17 O2 Del Method Room Air 04/12/23 07:17 O2 Flow Rate 2 03/30/23 08:00 Oxygen Flow Rate 4 03/25/23 00:10 BMI result Body Mass Index 22.1 Const: Other: General awake alert, but not conversing Neck supple no JVD. CVS regular rate rhythm, Respiratory lungs clear to auscultation, few rhonchi, no respiratory distress, no wheeze, Gastrointestinal abdomen soft, non tender, bowel sounds audible, no guarding , no rigidity. Extremities no edema, Neuro nonfocal ,speech clear, verbalized minimally. Skin decub ulcer--see picture for decub ulcer, warm to touch this mornin Objective Data Active Medications Acetaminophen (Acetaminophen Supp 650 Mg Supp.Rect) 650 mg MN Q6H PRN PRN Reason: Fever Last Admin: 04/10/23 08:18 Dose: 650 mg Documented By: JOAQUÍN Acetaminophen (Acetaminophen Supp 650 Mg Supp.Rect) 650 mg MN Q6H PRN PRN Reason: Pain, Mild (Pain Scale 1-3) Last Admin: 04/09/23 08:49 Dose: 650 mg Documented By: AMADOR Atenolol (Atenolol 25 Mg Tablet) 25 mg PO DAILY [facility]; Protocol Last Admin: 04/11/23 09:05 Dose: 25 mg Documented By: JOAQUÍN Atorvastatin Calcium (Atorvastatin Calcium 10 Mg Tablet) 10 mg PO DAILY [facility] Last Admin: 03/26/23 08:44 Dose: 10 mg Documented By: ROBERT Collagenase (Collagenase Clostridium Hist. 30 Gm Tube) 1 appl TOPICAL DAILY [facility]; Protocol Last Admin: 04/11/23 09:06 Dose: 1 appl Documented By: JOAQUÍN Dextrose (Dextrose 50 % 25 Gm/50 Ml Syringe) 25 gm IVPUSH Q15M PRN; Protocol PRN Reason: per Hypoglycemia Standing Ord. Last Admin: 04/06/23 23:22 Dose: 25 gm Documented By: CARLOS ENRIQUE Glucose (Glucose Gel 15 Gm Gel..Gram.) 15 gm PO Q15M PRN; Protocol PRN Reason: per Hypoglycemia Standing Ord. Guaifenesin (Guaifenesin 200 Mg/10 Ml 10 Ml Liquid) 10 ml PO Q4H PRN PRN Reason: Cough Last Admin: 03/28/23 09:25 Dose: 10 ml Documented By: ROBERT Heparin Sodium (Porcine) (Heparin Sodium,Porcine 5,000 Unit/Ml Vial) 5,000 unit SUBCUT Q8H [facility] Last Admin: 04/12/23 00:06 Dose: 5,000 unit Documented By: NITO Hydroxyzine HCl (Hydroxyzine Hcl 25 Mg Tablet) 25 mg PO BEDTIME PRN PRN Reason: Itching Valproic Acid 500 mg/ Dextrose 55 mls @ 55 mls/hr IV Q12H [facility] Last Infusion: 04/11/23 21:10 Dose: Infused Documented By: NITO Piperacillin Sod/Tazobactam (Sod 4.5 gm/ Sodium Chloride) 100 mls @ 200 mls/hr IV Q6H [facility] Last Infusion: 04/12/23 06:43 Dose: Infused Documented By: NITO Ceftriaxone Sodium 1 gm/ (Sodium Chloride) 50 mls @ 100 mls/hr IV Q24H [facility] Last Infusion: 04/11/23 12:45 Dose: Infused Documented By: JOAQUÍN Nutrition (Parenteral) (Parenteral Nutrition) 1,800 mls @ 75 mls/hr IV .Q24H [facility]; Protocol Stop: 04/12/23 20:59 Last Admin: 04/12/23 00:07 Dose: 75 mls/hr Documented By: NITO Dextrose (D10) 1,000 mls @ 75 mls/hr IVCONT .[id number] ONE Stop: 04/12/23 11:32 Last Admin: 04/11/23 22:27 Dose: 75 mls/hr Documented By: NITO Insulin Human Lispro (Insulin Lispro 100 Unit/Ml 3 Ml Vial) 0 unit SUBCUT Q6H [facility]; Protocol Last Admin: 04/12/23 05:56 Dose: Not Given Documented By: NITO Non-Admin Reason: No Insulin Coverage Levothyroxine Sodium (Levothyroxine Sodium 100 Mcg/5 Ml Vial) 12.5 mcg IVPUSH DAILY@0600 [facility] Last Admin: 04/12/23 05:43 Dose: 12.5 mcg Documented By: NITO Memantine (Memantine Hcl 5 Mg Tablet) 5 mg PO DAILY [facility] Last Admin: 04/11/23 09:06 Dose: 5 mg Documented By: JOAQUÍN Mirtazapine (Mirtazapine 30 Mg Tablet) 30 mg PO BEDTIME [facility] Last Admin: 04/11/23 19:52 Dose: Not Given Documented By: NITO Non-Admin Reason: NPO Nystatin (Nystatin Powder 15 Gm Bottle) 1 appl TOPICAL BID [facility]; Protocol Last Admin: 04/11/23 20:05 Dose: 1 appl Documented By: NITO Pharmacy Consult (Consult Rx Parenteral Nutrition Ordering) 1 each MISCELLANE DAILY PRN PRN Reason: Consult order Sertraline HCl (Sertraline Hcl 25 Mg Tablet) 25 mg PO DAILY [facility] Last Admin: 04/11/23 09:05 Dose: 25 mg Documented By: JOAQUÍN Sodium Chloride (0.9 % Sodium Chloride Flush 3 Ml Syringe) 3 ml IVFLUSH QSHIFT [facility] Last Admin: 04/12/23 00:17 Dose: Not Given Documented By: NITO Non-Admin Reason: Previously Administered Labs 04/10/23 09:33 04/10/23 05:45 Labs: Laboratory Results - last 24 hr 04/11/23 04/11/23 04/11/23 11:27 16:16 23:44 Hold Purple Top POC Glucose 161 H 117 H 111 Triglycerides 04/12/23 04/12/23 05:54 06:11 Hold Purple Top SEE NOTE POC Glucose 129 H Triglycerides 141 Microbiology Microbiology Results: Microbiology 04/10/23 09:32 Blood Culture - Final Blood - Venous Bacillus species 04/10/23 09:33 Blood Culture - Preliminary Blood - Venous No growth after 24 hours. Assessment and Plan (1) Aspiration into lower respiratory tract: Status: Acute (2) Hypoxia: Status: Acute (3) Dysphagia: Status: Inactive Plan 72 year old male with history of cognitive and neurobehavior dysfunction, seizure desorder here with acute hypoxic resp failure, aspiration pneumonitis and Covid New issues 04/10 Fever, tachycardia, low O2.. Sepsis w/u with CXR (negative, UA negative , Blood culture, CBC WNL, lactic acid normal). O2 sat on lower side Concern of aspiration again, added empric Ceftriaxone on 04/11, supplemental O2 as needed Old issues Acute hypoxic respiratory failure due to covid-- hypoxia resolved, on RA 95%, repeat covid if negative, stop isolation Sepsis due to aspiration pneumonia--completed 7 days of Zosyn Metabolic Encephalopathy due to acute illness and underlying cognitive disorder, appear to be at baseline Hypernatremia resolved Dysphagiia. He has been on parenteral nutrition IV PPN started on (03/27/23) due dyspahagia and failed multiple swallow evals but did ok with Puree on 04/08. Will stop PPN if able to take in enough calory over the weekend. Guardian would not want a PEG. Speech to reassess tomorrow hypOkalemia : repleted and resolved mild bradycardia : resolved ,atenolol restarted, stable vitals hypothyroidism- tsh elevated ,Free t4-normal, continue levothyroxine iv Pressure (decubitus) ulcer/injury coccyx Stage 2: continue position change, IV PPN and other recommendation per wound nurse Seizure disorder on IV Depakote until able to take PO atypical depressive disorder/ Neuro Behavioral dysfunction continue home medications patient is resident of [facility] and has a guardian--Spoke to jacquelinean Stephanie Singh [phone] about treatment plan, code status to be reconsider to DNR by court--try to update today 04/03 no answer.. Should proceed with PEG DVT prophylaxis: Heparin Full code, guardian is filling court docuement to have status change to DNR/DNI. Also pending Placement. ongoing hospitlization need:treatement of sepsis due to pneuomina, on IV PPN due to dysphagia. Time Spent With Patient Time: Total time managing care of this patient today ____ minutes. Quality Stroke Does the patient have a stroke diagnosis?: No VTE Prior VTE?: No VTE Risk Level:: Medical - moderate - high VTE Device Contraindication: Treatment Not Indicated VTE Drug Contraindication: N/A - Med Ordered
[2023-04-12] MEDS: Valproic Acid (as Sodium Salt) 500 MG in Dextrose 5 % 50 ML 55 MG IV ×2 (09:29→20:32)
[2023-04-12] MEDS: Nystatin Powder 15 GM BOTTLE 1 APPL TOPICAL ×2 (09:30→20:35)
[2023-04-12] MEDS: 0.9 % Sodium Chloride Flush 3 ML SYRINGE IVFLUSH ×2 (09:30→20:52)
[2023-04-12] MEDS: Collagenase Clostridium Hist. 30 GM TUBE 1 APPL TOPICAL (09:30)
--- NOTE | 2023-04-12 10:19 | MHC.CLN ---
F/U PT'S DIET RETURNED TO NPO BULK CLERK FOLLOWING DISCUSSED WITH PHARMACY CONTINUE PPN AT MAX GOAL RATE 75ML/HR PROVIDES 1848 TOTAL KCALS FROM FORMULA AND LIPIDS (28KCALS/KG), 77G PROTEIN (1.2G/KG), 180G DEXTROSE WITH 93G LIPIDS (1.4G/KG) REPLETE LYTES NEEDED PPN PROMOTES WOUND HEALING
[2023-04-12 10:38] LABS: Albumin Level 2.5 g/dL (3.5-5.0); Anion Gap 11 (12-20); Blood Urea Nitrogen 12 mg/dL (9-16); Calcium 8.3 mg/dL (8.4-10.2); Carbon Dioxide 22 mmol/L (22-29); Chloride 106 mmol/L (96-108); Creatinine Clr Calc Pharmacy 129.6; Estimated Glomerular Filt Rate > 60; Glucose Random 120 mg/dL (60-115); Magnesium 1.9 mg/dL (1.6-2.6); Phosphorus 3.3 mg/dL (2.7-4.5); Potassium 4.1 mmol/L (3.3-5.1); Sodium 135 mmol/L (135-145); Triglycerides 123 mg/dL (<150)
[2023-04-12] MEDS: cefTRIAXone sodium 1 GM in 0.9 % Sodium Chloride 50 ML IV (11:00)
[2023-04-12 12:07] LABS: Glucose, Whole Blood 108 mg/dL (60-115)
[2023-04-12] MEDS: vancomycin HCL 1,500 MG in 0.9 % Sodium Chloride 500 ML 333.33 MG IV (12:17)
--- NOTE | 2023-04-12 12:27 | PC.NURSE ---
report received from overnight RN, medical registrar per AUG. R arm noted to be very swollen. Midline has TPN running, MD notified and verbal order to hold TPN for now. MD up to bedside to assess arm, verbal orders to resume TPN. Says he will check to make sure nothing is there . Safety precautions remain in place. call kiser within reach.
--- NOTE | 2023-04-12 12:45 | MHC.CM.PN ---
EMR reviewed and per MD rounds, pt is not medically cleared for D/C due to awaiting court ruling to change pts code status, and right to place. Pts also continues with dysphagia and is receiving TPN. CM will continue to follow.
--- NOTE | 2023-04-12 12:55 | MHC.SL.SWA ---
Speech Pathologist Impression: Risk of aspiration, oropharyngeal dysphagia Risk of Aspiration Due to: Neurological Condition Reduced Cognition Dysphasia Diet Status: Frequent oral care, moistened swab for comfort, elevate head of bed at least 30 degrees Liquid Consistency and Strategies for Safe Swallow: Liquid Intake Recommendation: NPO Solid Food Consistency: Dietary Recommendations: NPO Additional Modifications to Solid Foods: Recommend continue NPO status, as pt observed w/ bolus neglect and absent laryngeal elevation despite extensive cuing. 100% of bolus was manually removed by SANITARY ENGINEER. Notified MD and RN via [place] Message. Oral Medication Intake: NPO Please contact the pharmacy regarding appropriate crushable or liquid drug formulations that are available whenever modified delivery is recommended. Supervision While Eating and Drinking for Safe Swallow: PO with SANITARY ENGINEER Swallowing Recommended Treatments: Compens. Strategy Educat. Recommendation for Speech: Inpatient Speech Therapy Recommend continued NPO with PO trials with SANITARY ENGINEER. Continue w/ frequent oral care, ice chips for comfort ok w/ supervision of SANITARY ENGINEER long term care social worker. [ End ] Frequency/Duration: M-F while inpatient. Date Range for Service Req: Timeline to reassess: Cathode Builder Clinican/Clinical Fellow: No Supervisory Statement: I have reviewed and agree with the student/clinical fellow's documentation: N/A Speech Language Pathologist: Allyssa Nolasco M.A., CCC-SANITARY ENGINEER
[2023-04-12 16:08] LABS: Glucose, Whole Blood 128 mg/dL (60-115)
[2023-04-12 19:46] LABS: Glucose, Whole Blood 120 mg/dL (60-115)
[2023-04-12] MEDS: Acetaminophen Supp 650 MG SUPP.RECT PR (20:51)
--- NOTE | 2023-04-12 22:26 | PM.EVENT ---
Event Note Date of Service: 04/12/23 Event Note: Was notified by the nurse that patient had a temperature of 102 degrees and was hypoxemic requiring 2 L supplemental oxygen. Likely aspiration. On empiric antibiotics, will obtain chest x-ray, lactic acid and blood cultures. Time Spent With Patient Time: Total time managing care of this patient today ____ minutes.
[2023-04-12 23:11] LABS: Lactic Acid 1.2 mmol/L (0.5-2.0)
[2023-04-13] VITALS (7 sets, daily range): BP systolic 112–143; BP diastolic 59–69; PULSE 98–111; RESP 17–20; TEMP 36.4–38.2; O2SAT 92–98
[2023-04-13 00:02] LABS: Glucose, Whole Blood 127 mg/dL (60-115)
[2023-04-13] MEDS: Heparin Sodium,Porcine 5,000 UNIT/ML VIAL 5000 UNIT SUBCUT ×4 (00:30→23:25)
[2023-04-13] MEDS: Piperacillin Sodium/Tazobactam 4.5 GM in 0.9 % Sodium Chloride 100 ML IV ×4 (00:31→17:42)
[2023-04-13 05:34] LABS: Glucose, Whole Blood 112 mg/dL (60-115)
[2023-04-13] MEDS: Levothyroxine Sodium 100 MCG/5 ML VIAL 12.5 MCG IVPUSH (05:44)
[2023-04-13] MEDS: Collagenase Clostridium Hist. 30 GM TUBE 1 APPL TOPICAL (07:42)
[2023-04-13] MEDS: Valproic Acid (as Sodium Salt) 500 MG in Dextrose 5 % 50 ML 55 MG IV ×2 (07:46→21:14)
--- NOTE | 2023-04-13 09:06 | P.PNIM_ITS ---
Subjective Subjective Date of Service: 04/14/23 Interval History: Offer no complaint, on O2 at 1 liter and satting 98 Physical Exam 2 Vital Signs: Vital Signs: Last Vital Signs Temp 99.3 F 04/13/23 07:18 Pulse 111 H 04/13/23 07:18 Resp 20 04/13/23 07:18 BP 143/65 H 04/13/23 07:18 Pulse Ox 98 04/13/23 07:18 O2 Del Method Nasal Cannula 04/13/23 07:18 O2 Flow Rate 1 04/13/23 07:18 Oxygen Flow Rate 4 03/25/23 00:10 BMI result Body Mass Index 22.1 Const: Other: General awake alert, but not conversing Neck supple no JVD. CVS regular rate rhythm, Respiratory lungs clear to auscultation, few rhonchi, no respiratory distress, no wheeze, Gastrointestinal abdomen soft, non tender, bowel sounds audible, no guarding , no rigidity. Extremities no edema, swollen right arm appear to be infiltrate IV Neuro nonfocal ,speech clear, verbalized minimally. Skin decub ulcer--see picture for decub ulcer, warm to touch this mornin Objective Data Active Medications Acetaminophen (Acetaminophen Supp 650 Mg Supp.Rect) 650 mg [place] Q6H PRN PRN Reason: Fever Last Admin: 04/10/23 08:18 Dose: 650 mg Documented By: JOAQUÍN Acetaminophen (Acetaminophen Supp 650 Mg Supp.Rect) 650 mg [place] Q6H PRN PRN Reason: Pain, Mild (Pain Scale 1-3) Last Admin: 04/12/23 20:51 Dose: 650 mg Documented By: NITO Atenolol (Atenolol 25 Mg Tablet) 25 mg PO DAILY [facility]; Protocol Last Admin: 04/13/23 07:42 Dose: Not Given Documented By: KENA Non-Admin Reason: NPO Atorvastatin Calcium (Atorvastatin Calcium 10 Mg Tablet) 10 mg PO DAILY [facility] Last Admin: 03/26/23 08:44 Dose: 10 mg Documented By: ROBERT Collagenase (Collagenase Clostridium Hist. 30 Gm Tube) 1 appl TOPICAL DAILY [facility]; Protocol Last Admin: 04/13/23 07:42 Dose: 1 appl Documented By: KENA Dextrose (Dextrose 50 % 25 Gm/50 Ml Syringe) 25 gm IVPUSH Q15M PRN; Protocol PRN Reason: per Hypoglycemia Standing Ord. Last Admin: 04/06/23 23:22 Dose: 25 gm Documented By: CARLOS ENRIQUE Glucose (Glucose Gel 15 Gm Gel..Gram.) 15 gm PO Q15M PRN; Protocol PRN Reason: per Hypoglycemia Standing Ord. Guaifenesin (Guaifenesin 200 Mg/10 Ml 10 Ml Liquid) 10 ml PO Q4H PRN PRN Reason: Cough Last Admin: 03/28/23 09:25 Dose: 10 ml Documented By: ROBERT Heparin Sodium (Porcine) (Heparin Sodium,Porcine 5,000 Unit/Ml Vial) 5,000 unit SUBCUT Q8H [facility] Last Admin: 04/13/23 07:38 Dose: 5,000 unit Documented By: KENA Hydroxyzine HCl (Hydroxyzine Hcl 25 Mg Tablet) 25 mg PO BEDTIME PRN PRN Reason: Itching Valproic Acid 500 mg/ Dextrose 55 mls @ 55 mls/hr IV Q12H [facility] Last Admin: 04/13/23 07:46 Dose: 55 mls/hr Documented By: KENA Piperacillin Sod/Tazobactam (Sod 4.5 gm/ Sodium Chloride) 100 mls @ 200 mls/hr IV Q6H [facility] Last Infusion: 04/13/23 06:16 Dose: Infused Documented By: ANTOIC Nutrition (Parenteral) (Parenteral Nutrition) 1,800 mls @ 75 mls/hr IV .Q24H [facility]; Protocol Stop: 04/13/23 20:59 Last Admin: 04/12/23 20:48 Dose: 75 mls/hr Documented By: NITO Insulin Human Lispro (Insulin Lispro 100 Unit/Ml 3 Ml Vial) 0 unit SUBCUT Q6H [facility]; Protocol Last Admin: 04/13/23 05:34 Dose: Not Given Documented By: NITO Non-Admin Reason: No Insulin Coverage Levothyroxine Sodium (Levothyroxine Sodium 100 Mcg/5 Ml Vial) 12.5 mcg IVPUSH DAILY@0600 [facility] Last Admin: 04/13/23 05:44 Dose: 12.5 mcg Documented By: NITO Memantine (Memantine Hcl 5 Mg Tablet) 5 mg PO DAILY [facility] Last Admin: 04/13/23 07:43 Dose: Not Given Documented By: KENA Non-Admin Reason: NPO Mirtazapine (Mirtazapine 30 Mg Tablet) 30 mg PO BEDTIME [facility] Last Admin: 04/12/23 20:36 Dose: Not Given Documented By: NITO Non-Admin Reason: NPO Nystatin (Nystatin Powder 15 Gm Bottle) 1 appl TOPICAL BID [facility]; Protocol Last Admin: 04/12/23 20:35 Dose: 1 appl Documented By: NITO Pharmacy Consult (Consult Rx Vancomycin Dosing) 1 each MISCELLANE DAILY PRN PRN Reason: Consult order Pharmacy Consult (Consult Rx Parenteral Nutrition Ordering) 1 each MISCELLANE DAILY PRN PRN Reason: Consult order Sertraline HCl (Sertraline Hcl 25 Mg Tablet) 25 mg PO DAILY [facility] Last Admin: 04/13/23 07:44 Dose: Not Given Documented By: KENA Non-Admin Reason: NPO Sodium Chloride (0.9 % Sodium Chloride Flush 3 Ml Syringe) 3 ml IVFLUSH QSHIFT [facility] Last Admin: 04/13/23 07:42 Dose: Not Given Documented By: KENA Non-Rachel Reason: IV Running Labs 04/10/23 09:33 04/14/23 08:50 Labs: Laboratory Results - last 24 hr 04/12/23 04/12/23 04/12/23 09:57 11:54 16:04 Anion Gap 11 L Estim Creat Clear Calc 129.6 Estimated GFR > 60 POC Glucose 108 128 H Random Glucose 120 H Lactic Acid Calcium 8.3 L Phosphorus 3.3 Magnesium 1.9 Albumin 2.5 L Triglycerides 123 04/12/23 04/12/23 04/12/23 19:16 22:51 23:42 Anion Gap Estim Creat Clear Calc Estimated GFR POC Glucose 120 H 127 H Random Glucose Lactic Acid 1.2 Calcium Phosphorus Magnesium Albumin Triglycerides 04/13/23 05:30 Anion Gap Estim Creat Clear Calc Estimated GFR POC Glucose 112 Random Glucose Lactic Acid Calcium Phosphorus Magnesium Albumin Triglycerides Microbiology Microbiology Results: Microbiology 04/10/23 09:33 Blood Culture - Preliminary Blood - Venous No growth after 48 hours. 04/10/23 09:32 Blood Culture - Final Blood - Venous Bacillus species Assessment and Plan (1) Aspiration into lower respiratory tract: Status: Acute (2) Hypoxia: Status: Acute (3) Dysphagia: Status: Inactive Plan 72 year old male with history of cognitive and neurobehavior dysfunction, seizure desorder here with acute hypoxic resp failure, aspiration pneumonitis and Covid New issues 04/10 Fever, tachycardia, low O2.. Sepsis w/u with CXR (negative, UA negative , Blood culture, CBC WNL, lactic acid normal). O2 sat on lower side Concern of aspiration again, added empric Ceftriaxone on 04/11, supplemental O2 as needed 04/12 Blood culture 04/10, 06/22 Bacilus species, likely contamination, stop Vanco 04/12 speech recommens NPO again. Continue TPN 04/12 Swollen right arm, likely infiltrated IV, US to rule clot Old issues Acute hypoxic respiratory failure due to covid-- hypoxia resolved, on RA 95%, repeat covid if negative, stop isolation Sepsis due to aspiration pneumonia--completed 7 days of Zosyn Metabolic Encephalopathy due to acute illness and underlying cognitive disorder, appear to be at baseline Hypernatremia resolved Dysphagiia. He has been on parenteral nutrition IV PPN started on (03/27/23) due dyspahagia and failed multiple swallow evals but did ok with Puree on 04/08. Will stop PPN if able to take in enough calory over the weekend. Guardian would not want a PEG. Speech to reassess tomorrow hypOkalemia : repleted and resolved mild bradycardia : resolved ,atenolol restarted, stable vitals hypothyroidism- tsh elevated ,Free t4-normal, continue levothyroxine iv Pressure (decubitus) ulcer/injury coccyx Stage 2: continue position change, IV PPN and other recommendation per wound nurse Seizure disorder on IV Depakote until able to take PO atypical depressive disorder/ Neuro Behavioral dysfunction continue home medications patient is resident of [facility] and has a guardian--Spoke to guardian Stephanie Singh [phone] about treatment plan, code status to be reconsider to DNR by court--try to update today 04/03 no answer.. Should proceed with PEG DVT prophylaxis: Heparin Full code, guardian is filling court docuement to have status change to DNR/DNI. Also pending Placement. ongoing hospitlization need:treatement of sepsis due to pneuomina, on IV PPN due to dysphagia. Time Spent With Patient Time: Total time managing care of this patient today ____ minutes. Quality Stroke Does the patient have a stroke diagnosis?: No VTE Prior VTE?: No VTE Risk Level:: Medical - moderate - high VTE Device Contraindication: Treatment Not Indicated VTE Drug Contraindication: N/A - Med Ordered
[2023-04-13] MEDS: Nystatin Powder 15 GM BOTTLE 1 APPL TOPICAL ×2 (10:08→21:15)
--- NOTE | 2023-04-13 10:12 | MHC.CLN ---
F/U PEDIATRIC DIETICIAN CONTINUES TO RECOMMEND NPO GUARDIAN DOES NOT WANT PEG; PPN CONTINUES DISCUSSED WITH PHARMACY CONTINUE PPN AT MAX GOAL RATE 75ML/HR PROVIDES 1848 TOTAL KCALS FROM FORMULA AND LIPIDS (28KCALS/KG), 77G PROTEIN (1.2G/KG), 180G DEXTROSE WITH 93G LIPIDS (1.4G/KG) REPLETE LYTES NEEDED PPN PROMOTES WOUND HEALING
[2023-04-13 10:27] LABS: Anion Gap 12 (12-20); Blood Urea Nitrogen 10 mg/dL (9-16); Calcium 8.4 mg/dL (8.4-10.2); Carbon Dioxide 24 mmol/L (22-29); Chloride 104 mmol/L (96-108); Estimated Glomerular Filt Rate > 60; Glucose Random 114 mg/dL (60-115); Magnesium 1.9 mg/dL (1.6-2.6); Phosphorus 3.5 mg/dL (2.7-4.5); Potassium 3.8 mmol/L (3.3-5.1); Sodium 136 mmol/L (135-145)
--- NOTE | 2023-04-13 10:41 | HE.PHANOTE ---
RE SHAMA CONSULT NOT COMPLETED ON 04/12. PATIENT BEING STARTED ON 1G Q12H WITH A SUSPECTED AUC OF 424 AND TROUGH OF 12. NEXT LEVEL DUE 04/14 @2100 CHANTE
--- NOTE | 2023-04-13 11:03 | MHC.SPEECHCO ---
FOOT TENDER attempted to work with Pt. He answered to his name but would not open his eyes on request. On presentation of a moistened sponge he opened his mouth but demonstrated disorganized oral preparation and no swallow on palpation despite prompts. Continue NPO secondary to altered mental status. FOOT TENDER will continue to monitor.
[2023-04-13 11:05] LABS: Glucose, Whole Blood 122 mg/dL (60-115)
[2023-04-13] MEDS: vancomycin HCL 1,000 MG in 0.9 % Sodium Chloride 250 ML 270 MG IV ×2 (11:23→23:25)
--- NOTE | 2023-04-13 14:22 | MHC.CM.PN ---
Addendum entered by Tere Urias 04/13/23 14:30: Notice of Hearing given to pt by this CM on 04/13/23 at 14:28. Original Note: This CM called and spoke with pts guardian Chelsea to follow up re: status of balance being paid to [facility] and LTC preferences. Per Chelsea, the balance that is owed to [facility] has not been paid and she states it won't likely be paid until next week. Chelsea would like the pt to stay in the [facility] area and specifically the [facility], [facility] area for LTC. LTC referrals placed. CM will continue to follow.
[2023-04-13 17:53] LABS: Glucose, Whole Blood 104 mg/dL (60-115)
[2023-04-13] MEDS: Parenteral Nutrition 1,800 ML 75 ML IV (21:11)
[2023-04-13] MEDS: 0.9 % Sodium Chloride Flush 3 ML SYRINGE IVFLUSH (23:25)
[2023-04-13 23:44] LABS: Glucose, Whole Blood 110 mg/dL (60-115)
[2023-04-14] MEDS: Acetaminophen Supp 650 MG SUPP.RECT PR (00:34)
[2023-04-14] MEDS: Piperacillin Sodium/Tazobactam 4.5 GM in 0.9 % Sodium Chloride 100 ML IV ×4 (01:08→17:09)
[2023-04-14 03:40] VITALS: BP 103/55; PULSE 96; RESP 16; TEMP 36.6; O2SAT 96
[2023-04-14 05:31] LABS: Glucose, Whole Blood 104 mg/dL (60-115)
[2023-04-14] MEDS: Levothyroxine Sodium 100 MCG/5 ML VIAL 12.5 MCG IVPUSH (05:34)
[2023-04-14 07:28] VITALS: BP 131/70; PULSE 97; RESP 18; TEMP 36.2; O2SAT 99
[2023-04-14 10:08] LABS: Creatinine Clr Calc Pharmacy 129.6; Estimated Glomerular Filt Rate > 60
--- NOTE | 2023-04-14 10:15 | HO.PM.IMPN ---
Subjective Subjective Date of Service: 04/14/23 Interval History: Offer no complaint, on O2 at 1 liter and satting 99 Physical Exam Vital Signs: Vital Signs: Last Vital Signs Temp 97.1 F 04/14/23 07:28 Pulse 97 04/14/23 07:28 Resp 18 04/14/23 07:28 BP 131/70 04/14/23 07:28 Pulse Ox 99 04/14/23 07:28 O2 Del Method Nasal Cannula 04/14/23 07:28 O2 Flow Rate 1 04/14/23 07:28 Oxygen Flow Rate 4 03/25/23 00:10 BMI result Body Mass Index 22.1 Objective Data Active Medications Acetaminophen (Acetaminophen Supp 650 Mg Supp.Rect) 650 mg MD Q6H PRN PRN Reason: Fever Last Admin: 04/14/23 00:34 Dose: 650 mg Documented By: NITO Acetaminophen (Acetaminophen Supp 650 Mg Supp.Rect) 650 mg MD Q6H PRN PRN Reason: Pain, Mild (Pain Scale 1-3) Last Admin: 04/12/23 20:51 Dose: 650 mg Documented By: NITO Atenolol (Atenolol 25 Mg Tablet) 25 mg PO DAILY [facility]; Protocol Last Admin: 04/14/23 07:43 Dose: Not Given Documented By: ROBERT Non-Admin Reason: NPO Atorvastatin Calcium (Atorvastatin Calcium 10 Mg Tablet) 10 mg PO DAILY [facility] Last Admin: 03/26/23 08:44 Dose: 10 mg Documented By: ROBERT Collagenase (Collagenase Clostridium Hist. 30 Gm Tube) 1 appl TOPICAL DAILY [facility]; Protocol Last Admin: 04/13/23 07:42 Dose: 1 appl Documented By: KENA Dextrose (Dextrose 50 % 25 Gm/50 Ml Syringe) 25 gm IVPUSH Q15M PRN; Protocol PRN Reason: per Hypoglycemia Standing Ord. Last Admin: 04/06/23 23:22 Dose: 25 gm Documented By: CARLOS ENRIQUE Glucose (Glucose Gel 15 Gm Gel..Gram.) 15 gm PO Q15M PRN; Protocol PRN Reason: per Hypoglycemia Standing Ord. Guaifenesin (Guaifenesin 200 Mg/10 Ml 10 Ml Liquid) 10 ml PO Q4H PRN PRN Reason: Cough Last Admin: 03/28/23 09:25 Dose: 10 ml Documented By: ROBERT Heparin Sodium (Porcine) (Heparin Sodium,Porcine 5,000 Unit/Ml Vial) 5,000 unit SUBCUT Q8H [facility] Last Admin: 04/13/23 23:25 Dose: 5,000 unit Documented By: DEMI Hydroxyzine HCl (Hydroxyzine Hcl 25 Mg Tablet) 25 mg PO BEDTIME PRN PRN Reason: Itching Valproic Acid 500 mg/ Dextrose 55 mls @ 55 mls/hr IV Q12H [facility] Last Infusion: 04/13/23 22:40 Dose: Infused Documented By: NITO Piperacillin Sod/Tazobactam (Sod 4.5 gm/ Sodium Chloride) 100 mls @ 200 mls/hr IV Q6H [facility] Last Infusion: 04/14/23 06:12 Dose: Infused Documented By: NITO Vancomycin HCl 1,000 mg/ (Sodium Chloride) 270 mls @ 270 mls/hr IV Q12H [facility] Last Infusion: 04/14/23 01:09 Dose: Infused Documented By: NITO Nutrition (Parenteral) (Parenteral Nutrition) 1,800 mls @ 75 mls/hr IV .Q24H [facility]; Protocol Stop: 04/14/23 20:59 Last Admin: 04/13/23 21:11 Dose: 75 mls/hr Documented By: NITO Insulin Human Lispro (Insulin Lispro 100 Unit/Ml 3 Ml Vial) 0 unit SUBCUT Q6H [facility]; Protocol Last Admin: 04/14/23 05:27 Dose: Not Given Documented By: DEMI Non-Admin Reason: No Insulin Coverage Levothyroxine Sodium (Levothyroxine Sodium 100 Mcg/5 Ml Vial) 12.5 mcg IVPUSH DAILY@0600 [facility] Last Admin: 04/14/23 05:34 Dose: 12.5 mcg Documented By: NITO Memantine (Memantine Hcl 5 Mg Tablet) 5 mg PO DAILY [facility] Last Admin: 04/14/23 07:43 Dose: Not Given Documented By: ROBERT Non-Admin Reason: NPO Mirtazapine (Mirtazapine 30 Mg Tablet) 30 mg PO BEDTIME [facility] Last Admin: 04/13/23 21:17 Dose: Not Given Documented By: NITO Non-Admin Reason: NPO Nystatin (Nystatin Powder 15 Gm Bottle) 1 appl TOPICAL BID [facility]; Protocol Last Admin: 04/13/23 21:15 Dose: 1 appl Documented By: NITO Pharmacy Consult (Consult Rx Vancomycin Dosing) 1 each MISCELLANE DAILY PRN PRN Reason: Consult order Pharmacy Consult (Consult Rx Parenteral Nutrition Ordering) 1 each MISCELLANE DAILY PRN PRN Reason: Consult order Sertraline HCl (Sertraline Hcl 25 Mg Tablet) 25 mg PO DAILY [facility] Last Admin: 04/14/23 07:43 Dose: Not Given Documented By: ROBERT Non-Admin Reason: NPO Sodium Chloride (0.9 % Sodium Chloride Flush 3 Ml Syringe) 3 ml IVFLUSH QSHIFT [facility] Last Admin: 04/13/23 23:25 Dose: 3 ml Documented By: DEMI Labs 04/10/23 09:33 04/14/23 08:50 Labs: Laboratory Results - last 24 hr 04/13/23 04/13/23 04/13/23 10:54 17:50 23:40 Hold Purple Top Anion Gap Estim Creat Clear Calc Estimated GFR POC Glucose 122 H 104 110 Random Glucose Calcium Phosphorus Magnesium 04/13/23 04/14/23 04/14/23 Unknown 05:25 08:50 Hold Purple Top SEE NOTE Anion Gap 12 Estim Creat Clear Calc 127.0 129.6 Estimated GFR > 60 > 60 POC Glucose 104 Random Glucose 114 Calcium 8.4 Phosphorus 3.5 Magnesium 1.9 Microbiology Microbiology Results: Microbiology 04/12/23 22:51 Blood Culture - Preliminary Blood - Venous Prelim: GPC Gram Stain only 04/09/23 00:37 Blood Culture - Final Blood - Venous No growth after 5 days. 04/09/23 00:37 Blood Culture - Final Blood - Venous No growth after 5 days. 04/12/23 22:51 Blood Culture - Preliminary Blood - Venous No growth after 24 hours. Assessment and Plan (1) Aspiration into lower respiratory tract: Status: Acute (2) Hypoxia: Status: Acute (3) Dysphagia: Status: Inactive Plan 72 year old male with history of cognitive and neurobehavior dysfunction, seizure desorder here with acute hypoxic resp failure, aspiration pneumonitis and Covid New issues 04/10 Fever, tachycardia, low O2.. Sepsis w/u with CXR (negative, UA negative , Blood culture, CBC WNL, lactic acid normal). O2 sat on lower side Concern of aspiration again, added empric Zosyn on 04/10, supplemental O2 as needed 04/12 Blood culture 04/10, 1/ Bacilus species, likely contamination, stop Vanco 04/12 speech recommens NPO again. Continue TPN 04/12 Swollen right arm, likely infiltrated IV, US to rule clot Old issues Acute hypoxic respiratory failure due to covid-- hypoxia resolved, on RA 95%, repeat covid if negative, stop isolation Sepsis due to aspiration pneumonia--completed 7 days of Zosyn Metabolic Encephalopathy due to acute illness and underlying cognitive disorder, appear to be at baseline Hypernatremia resolved Dysphagiia. He has been on parenteral nutrition IV PPN started on (03/27/23) due dyspahagia and failed multiple swallow evals but did ok with Puree on 04/08. Will stop PPN if able to take in enough calory over the weekend. Guardian would not want a PEG. Speech to reassess tomorrow hypOkalemia : repleted and resolved mild bradycardia : resolved ,atenolol restarted, stable vitals hypothyroidism- tsh elevated ,Free t4-normal, continue levothyroxine iv Pressure (decubitus) ulcer/injury coccyx Stage 2: continue position change, IV PPN and other recommendation per wound nurse Seizure disorder on IV Depakote until able to take PO atypical depressive disorder/ Neuro Behavioral dysfunction continue home medications patient is resident of [facility] and has a guardian--Spoke to guardian Stephanie Singh [phone] about treatment plan, code status to be reconsider to DNR by court--try to update today 04/03 no answer.. Should proceed with PEG DVT prophylaxis: Heparin Full code, guardian is filling court docuement to have status change to DNR/DNI. Also pending Placement. ongoing hospitlization need:treatement of sepsis due to pneuomina, on IV PPN due to dysphagia. Time Spent With Patient Time: Total time managing care of this patient today ____ minutes. Quality Stroke Does the patient have a stroke diagnosis?: No VTE Prior VTE?: No VTE Risk Level:: Medical - moderate - high VTE Device Contraindication: Treatment Not Indicated VTE Drug Contraindication: N/A - Med Ordered
[2023-04-14] MEDS: Heparin Sodium,Porcine 5,000 UNIT/ML VIAL 5000 UNIT SUBCUT ×2 (10:37→17:09)
[2023-04-14] MEDS: Valproic Acid (as Sodium Salt) 500 MG in Dextrose 5 % 50 ML 55 MG IV ×2 (10:38→21:33)
[2023-04-14] MEDS: vancomycin HCL 1,000 MG in 0.9 % Sodium Chloride 250 ML 270 MG IV ×2 (10:38→23:00)
[2023-04-14] MEDS: Collagenase Clostridium Hist. 30 GM TUBE 1 APPL TOPICAL (10:40)
[2023-04-14] MEDS: Nystatin Powder 15 GM BOTTLE 1 APPL TOPICAL ×2 (10:40→21:43)
[2023-04-14 11:29] LABS: Albumin Level 2.6 g/dL (3.5-5.0); Magnesium 2.2 mg/dL (1.6-2.6); Phosphorus 4.2 mg/dL (2.7-4.5)
--- NOTE | 2023-04-14 11:34 | MHC.CLN ---
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
[2023-04-14 11:40] LABS: Alanine Aminotransferase 19 U/L (0-40); Albumin Level 2.4 g/dL (3.5-5.0); Alkaline Phosphatase 31 U/L (39-117); Anion Gap 12 (12-20); Aspartate Amino Transferase 38 U/L (5-37); Bilirubin Total 0.2 mg/dL (0.0-1.0); Blood Urea Nitrogen 8 mg/dL (9-16); Calcium 8.3 mg/dL (8.4-10.2); Carbon Dioxide 24 mmol/L (22-29); Chloride 106 mmol/L (96-108); Estimated Glomerular Filt Rate > 60; Glucose Random 124 mg/dL (60-115); Potassium 4.5 mmol/L (3.3-5.1); Sodium 137 mmol/L (135-145); Total Protein 6.7 g/dL (6.5-8.0)
[2023-04-14 12:00] VITALS: BP 130/60; PULSE 60; RESP 16; TEMP 36.6; O2SAT 94
--- NOTE | 2023-04-14 12:17 | MHC.SLORD ---
Speech Language Pathology Order Status: Per RN, patient is not appropriate for PO trials on this date d/t lethargic state. RN to send [place] to [facility] if status changes. Pt currently NPO. Pt last seen by [facility] on 04/12; recommended continued NPO d/t bolus neglect & absent laryngeal elevation despite extensive cuing. [facility] to continue to follow during hospitalization.
[2023-04-14 12:18] LABS: Glucose, Whole Blood 121 mg/dL (60-115)
[2023-04-14 15:38] VITALS: BP 115/58; PULSE 100; RESP 18; TEMP 37.2; O2SAT 96
[2023-04-14] MEDS: 0.9 % Sodium Chloride Flush 3 ML SYRINGE IVFLUSH (17:10)
[2023-04-14 17:16] LABS: Glucose, Whole Blood 112 mg/dL (60-115)
[2023-04-14 19:38] VITALS: BP 114/56; PULSE 104; RESP 16; TEMP 37.1; O2SAT 98
[2023-04-14] MEDS: Parenteral Nutrition 1,800 ML 75 ML IV (21:37)
[2023-04-14 21:39] LABS: Vancomycin Trough 12.8 mcg/mL (10.0-20.0)
--- NOTE | 2023-04-14 21:53 | HE.PHANOTE ---
re danny continue current dose, level is actually higher than predicted currently. next level 04/16 @0900 sera
[2023-04-14 23:31] VITALS: BP 131/66; PULSE 100; RESP 16; TEMP 37.2; O2SAT 97
[2023-04-14 23:59] LABS: Glucose, Whole Blood 105 mg/dL (60-115)
[2023-04-15] MEDS: Piperacillin Sodium/Tazobactam 4.5 GM in 0.9 % Sodium Chloride 100 ML IV ×4 (00:13→17:39)
[2023-04-15] MEDS: Heparin Sodium,Porcine 5,000 UNIT/ML VIAL 5000 UNIT SUBCUT ×3 (00:14→15:06)
[2023-04-15 03:23] VITALS: BP 112/62; PULSE 101; RESP 18; TEMP 36.6; O2SAT 94
[2023-04-15 05:26] LABS: Glucose, Whole Blood 111 mg/dL (60-115)
[2023-04-15] MEDS: Levothyroxine Sodium 100 MCG/5 ML VIAL 12.5 MCG IVPUSH (05:37)
[2023-04-15 07:34] VITALS: BP 117/68; PULSE 94; RESP 18; TEMP 36.6; O2SAT 99
[2023-04-15 07:48] LABS: Alanine Aminotransferase 16 U/L (0-40); Albumin Level 2.4 g/dL (3.5-5.0); Alkaline Phosphatase 29 U/L (39-117); Anion Gap 12 (12-20); Aspartate Amino Transferase 35 U/L (5-37); Bilirubin Total 0.2 mg/dL (0.0-1.0); Blood Urea Nitrogen 7 mg/dL (9-16); Calcium 7.9 mg/dL (8.4-10.2); Carbon Dioxide 25 mmol/L (22-29); Chloride 103 mmol/L (96-108); Creatinine Clr Calc Pharmacy 119.6; Estimated Glomerular Filt Rate > 60; Glucose Random 114 mg/dL (60-115); Potassium 3.5 mmol/L (3.3-5.1); Sodium 136 mmol/L (135-145); Total Protein 6.6 g/dL (6.5-8.0)
[2023-04-15 09:08] LABS: Phosphorus 3.4 mg/dL (2.7-4.5); Triglycerides 160 mg/dL (<150)
[2023-04-15] MEDS: 0.9 % Sodium Chloride Flush 3 ML SYRINGE IVFLUSH ×3 (09:52→22:23)
[2023-04-15] MEDS: Valproic Acid (as Sodium Salt) 500 MG in Dextrose 5 % 50 ML 55 MG IV ×2 (09:52→22:16)
--- NOTE | 2023-04-15 09:52 | MHC.CLN ---
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
--- NOTE | 2023-04-15 10:50 | HO.PM.IMPN ---
Subjective Subjective Date of Service: 04/15/23 Interval History: Offer no complaint, on O2 at 1 liter and satting 99 Physical Exam Vital Signs: Vital Signs: Last Vital Signs Temp 97.9 F 04/15/23 07:34 Pulse 94 04/15/23 07:34 Resp 18 04/15/23 07:34 BP 117/68 04/15/23 07:34 Pulse Ox 99 04/15/23 07:34 O2 Del Method Nasal Cannula 04/15/23 07:34 O2 Flow Rate 1 04/15/23 07:34 Oxygen Flow Rate 4 03/25/23 00:10 BMI result Body Mass Index 22.1 Const: Other: General awake alert, but not conversing Neck supple no JVD. CVS regular rate rhythm, Respiratory lungs clear to auscultation, few rhonchi, no respiratory distress, no wheeze, Gastrointestinal abdomen soft, non tender, bowel sounds audible, no guarding , no rigidity. Extremities no edema, swollen right arm appear to be infiltrate IV Neuro nonfocal ,speech clear, verbalized minimally. Skin decub ulcer--see picture for decub ulcer, warm to touch this mornin Objective Data Active Medications Acetaminophen (Acetaminophen Supp 650 Mg Supp.Rect) 650 mg IA Q6H PRN PRN Reason: Fever Last Admin: 04/14/23 00:34 Dose: 650 mg Documented By: NITO Acetaminophen (Acetaminophen Supp 650 Mg Supp.Rect) 650 mg IA Q6H PRN PRN Reason: Pain, Mild (Pain Scale 1-3) Last Admin: 04/12/23 20:51 Dose: 650 mg Documented By: NITO Atenolol (Atenolol 25 Mg Tablet) 25 mg PO DAILY [facility]; Protocol Last Admin: 04/15/23 09:45 Dose: Not Given Documented By: ERIN Non-Admin Reason: NPO Atorvastatin Calcium (Atorvastatin Calcium 10 Mg Tablet) 10 mg PO DAILY [facility] Last Admin: 03/26/23 08:44 Dose: 10 mg Documented By: ROBERT Collagenase (Collagenase Clostridium Hist. 30 Gm Tube) 1 appl TOPICAL DAILY [facility]; Protocol Last Admin: 04/14/23 10:40 Dose: 1 appl Documented By: ROBERT Dextrose (Dextrose 50 % 25 Gm/50 Ml Syringe) 25 gm IVPUSH Q15M PRN; Protocol PRN Reason: per Hypoglycemia Standing Ord. Last Admin: 04/06/23 23:22 Dose: 25 gm Documented By: CARLOS ENRIQUE Glucose (Glucose Gel 15 Gm Gel..Gram.) 15 gm PO Q15M PRN; Protocol PRN Reason: per Hypoglycemia Standing Ord. Guaifenesin (Guaifenesin 200 Mg/10 Ml 10 Ml Liquid) 10 ml PO Q4H PRN PRN Reason: Cough Last Admin: 03/28/23 09:25 Dose: 10 ml Documented By: ROBERT Heparin Sodium (Porcine) (Heparin Sodium,Porcine 5,000 Unit/Ml Vial) 5,000 unit SUBCUT Q8H [facility] Last Admin: 04/15/23 09:52 Dose: 5,000 unit Documented By: ERIN Hydroxyzine HCl (Hydroxyzine Hcl 25 Mg Tablet) 25 mg PO BEDTIME PRN PRN Reason: Itching Valproic Acid 500 mg/ Dextrose 55 mls @ 55 mls/hr IV Q12H [facility] Last Admin: 04/15/23 09:52 Dose: 55 mls/hr Documented By: ERIN Piperacillin Sod/Tazobactam (Sod 4.5 gm/ Sodium Chloride) 100 mls @ 200 mls/hr IV Q6H [facility] Last Infusion: 04/15/23 06:16 Dose: Infused Documented By: SANTOSH Vancomycin HCl 1,000 mg/ (Sodium Chloride) 270 mls @ 270 mls/hr IV Q12H [facility] Last Infusion: 04/15/23 00:05 Dose: Infused Documented By: SANTOSH Nutrition (Parenteral) (Parenteral Nutrition) 1,800 mls @ 75 mls/hr IV .Q24H [facility]; Protocol Stop: 04/15/23 20:59 Last Admin: 04/14/23 21:37 Dose: 75 mls/hr Documented By: SANTOSH Nutrition (Parenteral) (Parenteral Nutrition) 1,800 mls @ 75 mls/hr IV .Q24H [facility]; Protocol Stop: 04/16/23 20:59 Insulin Human Lispro (Insulin Lispro 100 Unit/Ml 3 Ml Vial) 0 unit SUBCUT Q6H [facility]; Protocol Last Admin: 04/15/23 05:37 Dose: Not Given Documented By: SANTOSH Non-Admin Reason: No Insulin Coverage Levothyroxine Sodium (Levothyroxine Sodium 100 Mcg/5 Ml Vial) 12.5 mcg IVPUSH DAILY@0600 [facility] Last Admin: 04/15/23 05:37 Dose: 12.5 mcg Documented By: SANTOSH Memantine (Memantine Hcl 5 Mg Tablet) [address] [facility] Last Admin: 04/15/23 09:46 Dose: Not Given Documented By: ERIN Non-Admin Reason: NPO Mirtazapine (Mirtazapine 30 Mg Tablet) [address] [facility] Last Admin: 04/14/23 21:43 Dose: Not Given Documented By: SANTOSH Non-Admin Reason: NPO Nystatin (Nystatin Powder 15 Gm Bottle) [address] [facility]; Protocol Last Admin: 04/14/23 21:43 Dose: 1 appl Documented By: SANTOSH Pharmacy Consult (Consult Rx Vancomycin Dosing) 1 each MISCELLANE DAILY PRN PRN Reason: Consult order Pharmacy Consult (Consult Rx Parenteral Nutrition Ordering) 1 each MISCELLANE DAILY PRN PRN Reason: Consult order Sertraline HCl (Sertraline Hcl 25 Mg Tablet) [address] [facility] Last Admin: 04/15/23 09:46 Dose: Not Given Documented By: ERIN Non-Admin Reason: NPO Sodium Chloride (0.9 % Sodium Chloride Flush 3 Ml Syringe) [address] [facility] Last Admin: 04/15/23 09:52 Dose: 3 ml Documented By: ERIN Labs 04/10/23 09:33 04/15/23 06:12 Labs: Laboratory Results - last 24 hr 04/14/23 04/14/23 04/14/23 08:50 11:06 12:01 Hold Purple Top Anion Gap 12 Estim Creat Clear Calc 122.0 Estimated GFR > 60 POC Glucose 121 H Random Glucose 124 H Calcium 8.3 L Phosphorus 4.2 Magnesium 2.2 Total Bilirubin 0.2 AST 38 H ALT 19 Alkaline Phosphatase 31 L Total Protein 6.7 Albumin 2.6 L 2.4 L Triglycerides Vancomycin Trough 04/14/23 04/14/23 04/14/23 17:11 21:08 23:36 Hold Purple Top Anion Gap Estim Creat Clear Calc Estimated GFR POC Glucose 112 105 Random Glucose Calcium Phosphorus Magnesium Total Bilirubin AST ALT Alkaline Phosphatase Total Protein Albumin Triglycerides Vancomycin Trough 12.8 04/15/23 04/15/23 05:07 06:12 Hold Purple Top SEE NOTE Anion Gap 12 Estim Creat Clear Calc 119.6 Estimated GFR > 60 POC Glucose 111 Random Glucose 114 Calcium 7.9 L Phosphorus 3.4 Magnesium 2.0 Total Bilirubin 0.2 AST 35 ALT 16 Alkaline Phosphatase 29 L Total Protein 6.6 Albumin 2.4 L Triglycerides 160 H Vancomycin Trough Microbiology Microbiology Results: Microbiology 04/12/23 22:51 Blood Culture - Preliminary Blood - Venous No growth after 48 hours. 04/12/23 22:51 Blood Culture - Preliminary Blood - Venous Prelim: GPC Gram Stain only Assessment and Plan (1) Aspiration into lower respiratory tract: Status: Acute (2) Hypoxia: Status: Acute (3) Dysphagia: Status: Inactive Plan 72 year old male with history of cognitive and neurobehavior dysfunction, seizure desorder here with acute hypoxic resp failure, aspiration pneumonitis and Covid New issues 04/10 Fever, tachycardia, low O2.. Sepsis w/u with CXR (negative, UA negative , Blood culture, CBC WNL, lactic acid normal). O2 sat on lower side Concern of aspiration again, added empric Zosyn on 04/10, supplemental O2 as needed 04/12 Blood culture 04/10, 1/2 Bacilus species, likely contamination, stop Vanco 04/12 speech recommens NPO again. Continue TPN 04/12 Swollen right arm, likely infiltrated IV, US to rule clot April 23, court hearing to address goals of care Old issues Acute hypoxic respiratory failure due to covid-- hypoxia resolved, on RA 95%, repeat covid if negative, stop isolation Sepsis due to aspiration pneumonia--completed 7 days of Zosyn Metabolic Encephalopathy due to acute illness and underlying cognitive disorder, appear to be at baseline Hypernatremia resolved Dysphagiia. He has been on parenteral nutrition IV PPN started on (03/27/23) due dyspahagia and failed multiple swallow evals but did ok with Puree on 04/08. Will stop PPN if able to take in enough calory over the weekend. Guardian would not want a PEG. Speech to reassess tomorrow hypOkalemia : repleted and resolved mild bradycardia : resolved ,atenolol restarted, stable vitals hypothyroidism- tsh elevated ,Free t4-normal, continue levothyroxine iv Pressure (decubitus) ulcer/injury coccyx Stage 2: continue position change, IV PPN and other recommendation per wound nurse Seizure disorder on IV Depakote until able to take PO atypical depressive disorder/ Neuro Behavioral dysfunction continue home medications patient is resident of [facility] and has a guardian--Spoke to guardian Stephanie Singh [phone] about treatment plan, code status to be reconsider to DNR by court--try to update today 04/03 no answer.. Should proceed with PEG DVT prophylaxis: Heparin Full code, guardian is filling court docuement to have status change to DNR/DNI. Also pending Placement. ongoing hospitlization need:treatement of sepsis due to pneuomina, on IV PPN due to dysphagia. Time Spent With Patient Time: Total time managing care of this patient today ____ minutes. Quality Stroke Does the patient have a stroke diagnosis?: No VTE Prior VTE?: No VTE Risk Level:: Medical - moderate - high VTE Device Contraindication: Treatment Not Indicated VTE Drug Contraindication: N/A - Med Ordered
[2023-04-15 11:47] LABS: Glucose, Whole Blood 123 mg/dL (60-115)
--- NOTE | 2023-04-15 11:47 | MHC.SL.SWA ---
Speech Pathologist Impression: Risk of Aspiration Due to: Neurological Condition Reduced Cognition Dysphasia Diet Status: Recommend continue NPO at this time with PO trials with EMBEDDED SOFTWARE ARCHITECT. Provide frequent oral care for comfort. Liquid Consistency and Strategies for Safe Swallow: Liquid Intake Recommendation: NPO Liquid Intake Strategies: Small Sips No Straws Liquids by Teaspoon Only Solid Food Consistency: Dietary Recommendations: NPO Additional Modifications to Solid Foods: Oral Medication Intake: NPO Please contact the pharmacy regarding appropriate crushable or liquid drug formulations that are available whenever modified delivery is recommended. Compensatory Strategies and Precautions to be Taken for Safe Swallow: Sitting Upright (90 deg) Liquids from Straw Small Bites and Sips Alternate Liquids/Solids Rate of Ingestion Change Oral Check Avoid Specific Foods Supervision While Eating and Drinking for Safe Swallow: PO with EMBEDDED SOFTWARE ARCHITECT Foods to Avoid: Swallowing Recommended Treatments: Compens. Strategy Educat. Recommendation for Speech: Inpatient Speech Therapy Comment: Pt was sleeping when EMBEDDED SOFTWARE ARCHITECT arrived, but awoke when head of bed adjusted and he was spoken to. Patient seen for repeat po trials. Patient accepted oral care, noted increased lingual movement in response to swab on right, reduced lingual movement on left. Patient then offered Divehi Ice, with patient noted to manipulate bolus with tongue, then orally held bolus for a period before initiating swallow. On second presentation patient again manipulated bolus orally then appeared to hold bolus, likely with some entering pharynx and patient holding for a period before initiating swallow. Patient given tsp of nectar thick juice, with patient again orally hold bolus, and eventually demonstrating a piece meal swallow. Patient throughout made sustained eye contact at times when spoken to, but gave no response to questions or comments made, either verbally or with non-verbal responses or gestures. Patient continues to be at high risk for aspiration due to pattern of holding bolus both orally and pharyngeally. Recommend continue NPO at this time with PO trials with EMBEDDED SOFTWARE ARCHITECT. Provide frequent oral care for comfort. [ End ] Frequency/Duration: M-F while inpatient. Date Range for Service Req: Timeline to reassess: Extraction Machine Operator Clinican/Clinical Fellow: No Supervisory Statement: I have reviewed and agree with the student/clinical fellow's documentation: N/A Speech Language Pathologist: Michelle Moreno M.A., CCC-EMBEDDED SOFTWARE ARCHITECT
[2023-04-15 11:48] VITALS: BP 125/71; PULSE 94; RESP 18; TEMP 36.6; O2SAT 98
[2023-04-15] MEDS: vancomycin HCL 1,000 MG in 0.9 % Sodium Chloride 250 ML 270 MG IV (13:04)
[2023-04-15] MEDS: Nystatin Powder 15 GM BOTTLE 1 APPL TOPICAL ×2 (13:04→22:23)
[2023-04-15] MEDS: Collagenase Clostridium Hist. 30 GM TUBE 1 APPL TOPICAL (13:04)
--- NOTE | 2023-04-15 13:59 | HO.WOUND ---
Wound Consult: Follow Up 72yr old male admitted to [facility] on 03/24/23 23:35 - See progress notes and H&P for detailed history. Wound beds continue to declare continue with Santyl - provider to consider Surgery consult for debridement. Right Sacrum Etiology: Unstageable Pressure Injury Present on Admission Measurements: 3cm x 2.5cm x 2cm Wound Bed: Moist fibrinous necrotic hines chaudhari slough Drainage / Odor: Green chaudhari moderate mild odor drainage - suspect Psuedomonas Edges: unattached Bharati wound: ?Intact red hyperpigmented tissue slow to jolynn throughout - Fungal Dermatitis and MASD noted No induration no fluctuance noted - no s/s of active infection at this time Goals of Treatment: ?Off Load Pressure and Santyl for enzymatic debridement - Surgery consult for Debridement Left Sacrum Etiology: Unstageable Pressure Injury Measurements: 2cm x 3cm x 0.2cm - wound measurements increase but given induration last assessment - suspect wound is not worsening but continuing to declare itself Wound Bed: Leather like necrotic brown black eschar Drainage / Odor: Green chaudhari moderate mild odor drainage - suspect Psuedomonas Edges: irregular Bharati wound: ?Intact red hyperpigmented tissue slow to jolynn throughout Fungal Dermatitis and MASD noted Mild induration noted in the periwound no fluctuance noted Goals of Treatment: ?Off Load Pressure and Santyl for enzymatic debridement - Surgery consult for Debridement Perianal / Perineal / Coccyx Etiology: MASD - Fungal Dermatitis (Moisture Associated Skin Damage) Wound Bed: Red blanchable tissue with evidence of moisture related tissue loss and advancing satellite lesions noted Drainage / Odor: moist drainage Edges: Advancing Goals of Care - Topical antifungal per provider - Nystatin Powder in use Recommendations: 1.Bilateral Sacrum - Off Load Pressure - Cleanse with normal saline, pat dry. ?Apply thin layer of Triad to the immediate bharati wound, Pack wound bed with thick layer of Santyl applied to normal saline moist gauze, cover with foam dressing. change Daily. If surgery does not debride consider switching topical treatment to Dakins Moist gauze packing to treat Pseudomonas invasion. 2. Perianal and perineal - Cleanse with PH Balance Mandan, pat dry. ?Apply thin layer of Antifungal ointment or powder twice a day. ??Apply for 10-14 days past point of clinical clearing per provider order. Consider Triad application after Antifungal to sooth and protect from moisture. 3. Turn and Reposition every 2 hours and as needed for patient comfort - Wedges provided at bedside and in use. 4. Off Load all bony prominences with use of pillows - heels in off loading boots. 5. Monitor for incontinence and moisture control. 6. Provide adequate and supplemental nutrition. 7. Continue low air loss mattress. Reconsult wound care team for wound deterioration or wound changes. --
[2023-04-15 15:15] VITALS: BP 121/59; PULSE 95; RESP 18; TEMP 36.1; O2SAT 98
[2023-04-15 16:35] LABS: Glucose, Whole Blood 107 mg/dL (60-115)
[2023-04-15 19:08] VITALS: BP 126/62; PULSE 94; RESP 18; TEMP 36; O2SAT 99
[2023-04-15] MEDS: Parenteral Nutrition 1,800 ML 75 ML IV (21:30)
[2023-04-15] MEDS: Mirtazapine 30 MG TABLET PO (22:16)
[2023-04-15 23:48] VITALS: BP 140/74; PULSE 89; RESP 18; TEMP 37; O2SAT 97
[2023-04-16] MEDS: Heparin Sodium,Porcine 5,000 UNIT/ML VIAL 5000 UNIT SUBCUT ×3 (00:31→15:24)
[2023-04-16 00:42] LABS: Glucose, Whole Blood 111 mg/dL (60-115)
[2023-04-16 02:51] VITALS: BP 109/62; PULSE 99; RESP 17; TEMP 36.7; O2SAT 94
[2023-04-16] MEDS: Piperacillin Sodium/Tazobactam 4.5 GM in 0.9 % Sodium Chloride 100 ML IV ×3 (04:09→18:03)
[2023-04-16 06:22] LABS: Glucose, Whole Blood 110 mg/dL (60-115)
[2023-04-16 07:42] VITALS: BP 125/68; PULSE 102; RESP 20; TEMP 36.7; O2SAT 93
[2023-04-16 09:33] LABS: Vancomycin Random 13.9 mcg/mL (15-20)
[2023-04-16 09:37] LABS: Alanine Aminotransferase 26 U/L (0-40); Albumin Level 2.4 g/dL (3.5-5.0); Alkaline Phosphatase 29 U/L (39-117); Anion Gap 12 (12-20); Aspartate Amino Transferase 40 U/L (5-37); Bilirubin Total 0.2 mg/dL (0.0-1.0); Blood Urea Nitrogen 8 mg/dL (9-16); Calcium 8.2 mg/dL (8.4-10.2); Carbon Dioxide 23 mmol/L (22-29); Chloride 106 mmol/L (96-108); Creatinine Clr Calc Pharmacy 124.4; Estimated Glomerular Filt Rate > 60; Glucose Random 134 mg/dL (60-115); Magnesium 1.9 mg/dL (1.6-2.6); Phosphorus 3.4 mg/dL (2.7-4.5); Potassium 3.6 mmol/L (3.3-5.1); Sodium 137 mmol/L (135-145); Total Protein 6.7 g/dL (6.5-8.0)
[2023-04-16] MEDS: Valproic Acid (as Sodium Salt) 500 MG in Dextrose 5 % 50 ML 55 MG IV ×2 (09:38→21:08)
[2023-04-16] MEDS: Collagenase Clostridium Hist. 30 GM TUBE 1 APPL TOPICAL (09:38)
[2023-04-16] MEDS: Nystatin Powder 15 GM BOTTLE 1 APPL TOPICAL ×2 (09:38→21:08)
[2023-04-16] MEDS: 0.9 % Sodium Chloride Flush 3 ML SYRINGE IVFLUSH ×2 (09:38→15:24)
--- NOTE | 2023-04-16 10:42 | MHC.CM.PN ---
EMR REVIEWED, PT AWAITING LTC BED OFFER, COURT DATE FOR EXPANSION OF GUARDIANSHIP 04/23, PER GUARDIAN BALANCE OWED TO TAMI LECHUGA STILL NEEDS TO BE PAID OFF AND WILL LIKELY BE DONE NEXT WEEK, NO DC AT THIS TIME, CM WILL CONT TO FOLLOW FOR LTC PLACEMENT AND DC NEEDS.
--- NOTE | 2023-04-16 10:48 | MHC.SLORD ---
Speech Language Pathology Order Status: BAND SAW MARKER attempted to see pt for dysphagia tx this morning. Pt was sleeping, awoke to light touch. Pt did not open his eyes despite cuing, repeatedly stating no and refusing to participate in bedside swallow eval. Pt is currently NPO d/t lethargy, continuous bolus neglect, and absent swallow.
--- NOTE | 2023-04-16 10:55 | HO.PM.IMPN ---
Subjective Subjective Date of Service: 04/16/23 Interval History: Clinically stable with no new issues Physical Exam Vital Signs: Vital Signs: Last Vital Signs Temp 98.0 F 04/16/23 07:42 Pulse 102 H 04/16/23 07:42 Resp 20 04/16/23 07:42 BP 125/68 04/16/23 07:42 Pulse Ox 93 04/16/23 07:42 O2 Del Method Nasal Cannula 04/16/23 07:42 O2 Flow Rate 1 04/16/23 07:42 Oxygen Flow Rate 4 03/25/23 00:10 BMI result Body Mass Index 22.1 Const: Other: General awake alert, but not conversing Neck supple no JVD. CVS regular rate rhythm, Respiratory lungs clear to auscultation, few rhonchi, no respiratory distress, no wheeze, Gastrointestinal abdomen soft, non tender, bowel sounds audible, no guarding , no rigidity. Extremities no edema, swollen right arm appear to be infiltrate IV Neuro nonfocal ,speech clear, verbalized minimally. Skin decub ulcer--see picture for decub ulcer, warm to touch this mornin Objective Data Active Medications Acetaminophen (Acetaminophen Supp 650 Mg Supp.Rect) 650 mg [place] Q6H PRN PRN Reason: Fever Last Admin: 04/14/23 00:34 Dose: 650 mg Documented By: NITO Acetaminophen (Acetaminophen Supp 650 Mg Supp.Rect) 650 mg [place] Q6H PRN PRN Reason: Pain, Mild (Pain Scale 1-3) Last Admin: 04/12/23 20:51 Dose: 650 mg Documented By: NITO Atenolol (Atenolol 25 Mg Tablet) 25 mg PO DAILY [facility]; Protocol Last Admin: 04/16/23 09:36 Dose: Not Given Documented By: ROBERT Non-Admin Reason: NPO Atorvastatin Calcium (Atorvastatin Calcium 10 Mg Tablet) 10 mg PO DAILY [facility] Last Admin: 03/26/23 08:44 Dose: 10 mg Documented By: ROBERT Collagenase (Collagenase Clostridium Hist. 30 Gm Tube) 1 appl TOPICAL DAILY [facility]; Protocol Last Admin: 04/16/23 09:38 Dose: 1 appl Documented By: ROBERT Dextrose (Dextrose 50 % 25 Gm/50 Ml Syringe) 25 gm IVPUSH Q15M PRN; Protocol PRN Reason: per Hypoglycemia Standing Ord. Last Admin: 04/06/23 23:22 Dose: 25 gm Documented By: CARLOS ENRIQUE Glucose (Glucose Gel 15 Gm Gel..Gram.) 15 gm PO Q15M PRN; Protocol PRN Reason: per Hypoglycemia Standing Ord. Guaifenesin (Guaifenesin 200 Mg/10 Ml 10 Ml Liquid) 10 ml PO Q4H PRN PRN Reason: Cough Last Admin: 03/28/23 09:25 Dose: 10 ml Documented By: ROBERT Heparin Sodium (Porcine) (Heparin Sodium,Porcine 5,000 Unit/Ml Vial) 5,000 unit SUBCUT Q8H [facility] Last Admin: 04/16/23 09:37 Dose: 5,000 unit Documented By: ROBERT Hydroxyzine HCl (Hydroxyzine Hcl 25 Mg Tablet) 25 mg PO BEDTIME PRN PRN Reason: Itching Valproic Acid 500 mg/ Dextrose 55 mls @ 55 mls/hr IV Q12H [facility] Last Infusion: 04/16/23 10:40 Dose: Infused Documented By: ROBERT Piperacillin Sod/Tazobactam (Sod 4.5 gm/ Sodium Chloride) 100 mls @ 200 mls/hr IV Q6H [facility] Last Infusion: 04/16/23 05:00 Dose: Infused Documented By: WESTLEY Vancomycin HCl 1,000 mg/ (Sodium Chloride) 270 mls @ 270 mls/hr IV Q12H [facility] Last Infusion: 04/16/23 01:15 Dose: Infused Documented By: WESTLEY Nutrition (Parenteral) (Parenteral Nutrition) 1,800 mls @ 75 mls/hr IV .Q24H [facility]; Protocol Stop: 04/16/23 20:59 Last Infusion: 04/16/23 01:30 Dose: 0 mls/hr Documented By: WESTLEY Nutrition (Parenteral) (Parenteral Nutrition) 1,800 mls @ 75 mls/hr IV .Q24H [facility]; Protocol Stop: 04/17/23 20:59 Insulin Human Lispro (Insulin Lispro 100 Unit/Ml 3 Ml Vial) 0 unit SUBCUT Q6H [facility]; Protocol Last Admin: 04/16/23 07:43 Dose: Not Given Documented By: WESTLEY Non-Admin Reason: as per sliding scale Levothyroxine Sodium (Levothyroxine Sodium 100 Mcg/5 Ml Vial) 12.5 mcg IVPUSH DAILY@0600 [facility] Last Admin: 04/16/23 04:13 Dose: Not Given Documented By: WESTLEY Non-Admin Reason: NPO Memantine (Memantine Hcl 5 Mg Tablet) 5 mg PO DAILY [facility] Last Admin: 04/16/23 09:36 Dose: Not Given Documented By: ROBERT Non-Admin Reason: NPO Mirtazapine (Mirtazapine 30 Mg Tablet) 30 mg PO BEDTIME [facility] Last Admin: 04/15/23 22:16 Dose: 30 mg Documented By: WESTLEY Nystatin (Nystatin Powder 15 Gm Bottle) 1 appl TOPICAL BID [facility]; Protocol Last Admin: 04/16/23 09:38 Dose: 1 appl Documented By: ROBERT Pharmacy Consult (Consult Rx Vancomycin Dosing) 1 each MISCELLANE DAILY PRN PRN Reason: Consult order Pharmacy Consult (Consult Rx Parenteral Nutrition Ordering) 1 each MISCELLANE DAILY PRN PRN Reason: Consult order Sertraline HCl (Sertraline Hcl 25 Mg Tablet) 25 mg PO DAILY [facility] Last Admin: 04/16/23 09:36 Dose: Not Given Documented By: ROBERT Non-Admin Reason: NPO Sodium Chloride (0.9 % Sodium Chloride Flush 3 Ml Syringe) 3 ml IVFLUSH QSHIFT [facility] Last Admin: 04/16/23 09:38 Dose: 3 ml Documented By: ROBERT Labs 04/10/23 09:33 04/16/23 09:09 Labs: Laboratory Results - last 24 hr 04/15/23 04/15/23 04/16/23 11:26 16:24 00:33 Hold Purple Top Anion Gap Estim Creat Clear Calc Estimated GFR POC Glucose 123 H 107 111 Random Glucose Calcium Phosphorus Magnesium Total Bilirubin AST ALT Alkaline Phosphatase Total Protein Albumin Random Vancomycin 04/16/23 04/16/23 06:13 09:09 Hold Purple Top SEE NOTE Anion Gap 12 Estim Creat Clear Calc 124.4 Estimated GFR > 60 POC Glucose 110 Random Glucose 134 H Calcium 8.2 L Phosphorus 3.4 Magnesium 1.9 Total Bilirubin 0.2 AST 40 H ALT 26 Alkaline Phosphatase 29 L Total Protein 6.7 Albumin 2.4 L Random Vancomycin 13.9 L Microbiology Microbiology Results: Microbiology 04/12/23 22:51 Blood Culture - Final Blood - Venous Coag negative Staphylococcus 04/10/23 09:33 Blood Culture - Final Blood - Venous No growth after 5 days. Assessment and Plan (1) Aspiration into lower respiratory tract: Status: Acute (2) Hypoxia: Status: Acute (3) Dysphagia: Status: Inactive Plan 72 year old male with history of cognitive and neurobehavior dysfunction, seizure desorder here with acute hypoxic resp failure, aspiration pneumonitis and Covid New issues 04/10 Fever, tachycardia, low O2.. Sepsis w/u with CXR (negative, UA negative , Blood culture, CBC WNL, lactic acid normal). O2 sat on lower side Concern of aspiration again, added empric Zosyn on 04/10, supplemental O2 as needed 04/12 Blood culture 04/10, 06/22 Bacilus species, likely contamination, stop Vanco 04/12 speech recommens NPO again. Continue TPN 04/12 Swollen right arm, likely infiltrated IV, US to rule clot April 23, court hearing to address goals of care Old issues Acute hypoxic respiratory failure due to covid-- hypoxia resolved, on RA 95%, repeat covid if negative, stop isolation Sepsis due to aspiration pneumonia--completed 7 days of Zosyn Metabolic Encephalopathy due to acute illness and underlying cognitive disorder, appear to be at baseline Hypernatremia resolved Dysphagiia. He has been on parenteral nutrition IV PPN started on (03/27/23) due dyspahagia and failed multiple swallow evals but did ok with Puree on 04/08. Will stop PPN if able to take in enough calory over the weekend. Guardian would not want a PEG. Speech to reassess tomorrow hypOkalemia : repleted and resolved mild bradycardia : resolved ,atenolol restarted, stable vitals hypothyroidism- tsh elevated ,Free t4-normal, continue levothyroxine iv Pressure (decubitus) ulcer/injury coccyx Stage 2: continue position change, IV PPN and other recommendation per wound nurse Seizure disorder on IV Depakote until able to take PO atypical depressive disorder/ Neuro Behavioral dysfunction continue home medications patient is resident of [facility] and has a guardian--Spoke to guardian Stephanie Singh [phone] about treatment plan, code status to be reconsider to DNR by court--try to update today 04/03 no answer.. Should proceed with PEG DVT prophylaxis: Heparin Full code, guardian is filling court docuement to have status change to DNR/DNI. Also pending Placement. ongoing hospitlization need:treatement of sepsis due to pneuomina, on IV PPN due to dysphagia. Time Spent With Patient Time: Total time managing care of this patient today ____ minutes. Quality Stroke Does the patient have a stroke diagnosis?: No VTE Prior VTE?: No VTE Risk Level:: Medical - moderate - high VTE Device Contraindication: Treatment Not Indicated VTE Drug Contraindication: N/A - Med Ordered
[2023-04-16] MEDS: vancomycin HCL 1,000 MG in 0.9 % Sodium Chloride 250 ML 270 MG IV ×3 (10:56→23:05)
[2023-04-16 11:01] LABS: Glucose, Whole Blood 109 mg/dL (60-115)
[2023-04-16 11:02] VITALS: BP 116/74; PULSE 94; RESP 20; TEMP 36.1; O2SAT 98
--- NOTE | 2023-04-16 11:15 | MHC.CLN ---
F/U DISCUSSED WITH PHARMACY CONTINUE PPN AT MAX GOAL RATE 75ML/HR PROVIDES 1848 TOTAL KCALS FROM FORMULA AND LIPIDS (28KCALS/KG), 77G PROTEIN (1.2G/KG), 180G DEXTROSE WITH 93G LIPIDS (1.4G/KG) REPLETE LYTES NEEDED PPN PROMOTES WOUND HEALING
--- NOTE | 2023-04-16 12:57 | P.CONGS_ITS ---
History of Present Illness Consult details Consult date: 04/16/23 Reason for consult: wound care Narrative: The patient is a 72-year-old gentleman who was admitted to the hospitalist service on 03/24/23 and was noted to have early sacral decubitus diet. In spite of pressure changes, the patient has developed worsening decubiti requiring debridement, so I was asked to evaluate the patient. In discussion with the patient he is non communicative Pictures are reviewed in the EMR and I concur that debridement is indicated. Review of Systems 2 Review of Systems: Yes Unobtainable due to mental status PMFSH Past Medical History Medical History Cognitive and neurobehavioral dysfunction Seizures Atypical depressive disorder Family History Family History Mother Heart disease Father Hx of colostomy Family history: reviewed and not pertinent Surgical History Surgical History History of amputation of finger of right hand Social History Social History Household Members: Family Housing: Longterm Are you a primary farm or ranch animal caretaker to a significant other at home: No Do you presently have visiting nurse or other home services: No Alcohol intake: never Patient Tobacco Use Status: Former Tobacco user Quit Date: 1989 Smoked: 30 +/- Second Hand Smoke Exposure: No Advance Directives Date on File: 08/19/20 service: No Current occupational status: retired Sexual orientation: Straight/Heterosexual Meds Allergies Allergy/AdvReac Type Severity Reaction Status Date / Time No Known Allergies Allergy Verified 09/11/22 09:08 [No Known Allergies*] Active Medications: Current Medications Acetaminophen (Acetaminophen Supp 650 Mg Supp.Rect) 650 mg TN Q6H PRN PRN Reason: Fever Last Admin: 04/14/23 00:34 Dose: 650 mg Acetaminophen (Acetaminophen Supp 650 Mg Supp.Rect) 650 mg TN Q6H PRN PRN Reason: Pain, Mild (Pain Scale 1-3) Last Admin: 04/12/23 20:51 Dose: 650 mg Atenolol (Atenolol 25 Mg Tablet) 25 mg PO DAILY [facility]; Protocol Last Admin: 04/16/23 09:36 Dose: Not Given Atorvastatin Calcium (Atorvastatin Calcium 10 Mg Tablet) 10 mg PO DAILY [facility] Last Admin: 03/26/23 08:44 Dose: 10 mg Collagenase (Collagenase Clostridium Hist. 30 Gm Tube) 1 appl TOPICAL DAILY [facility]; Protocol Last Admin: 04/16/23 09:38 Dose: 1 appl Dextrose (Dextrose 50 % 25 Gm/50 Ml Syringe) 25 gm IVPUSH Q15M PRN; Protocol PRN Reason: per Hypoglycemia Standing Ord. Last Admin: 04/06/23 23:22 Dose: 25 gm Glucose (Glucose Gel 15 Gm Gel..Gram.) 15 gm PO Q15M PRN; Protocol PRN Reason: per Hypoglycemia Standing Ord. Guaifenesin (Guaifenesin 200 Mg/10 Ml 10 Ml Liquid) 10 ml PO Q4H PRN PRN Reason: Cough Last Admin: 03/28/23 09:25 Dose: 10 ml Heparin Sodium (Porcine) (Heparin Sodium,Porcine 5,000 Unit/Ml Vial) 5,000 unit SUBCUT Q8H [facility] Last Admin: 04/16/23 09:37 Dose: 5,000 unit Hydroxyzine HCl (Hydroxyzine Hcl 25 Mg Tablet) 25 mg PO BEDTIME PRN PRN Reason: Itching Valproic Acid 500 mg/ Dextrose 55 mls @ 55 mls/hr IV Q12H [facility] Last Infusion: 04/16/23 10:40 Dose: Infused Piperacillin Sod/Tazobactam (Sod 4.5 gm/ Sodium Chloride) 100 mls @ 200 mls/hr IV Q6H [facility] Last Infusion: 04/16/23 12:56 Dose: Infused Vancomycin HCl 1,000 mg/ (Sodium Chloride) 270 mls @ 270 mls/hr IV Q12H [facility] Last Infusion: 04/16/23 12:00 Dose: Infused Nutrition (Parenteral) (Parenteral Nutrition) 1,800 mls @ 75 mls/hr IV .Q24H [facility]; Protocol Stop: 04/16/23 20:59 Last Infusion: 04/16/23 01:30 Dose: 0 mls/hr Nutrition (Parenteral) (Parenteral Nutrition) 1,800 mls @ 75 mls/hr IV .Q24H [facility]; Protocol Stop: 04/17/23 20:59 Insulin Human Lispro (Insulin Lispro 100 Unit/Ml 3 Ml Vial) 0 unit SUBCUT Q6H [facility]; Protocol Last Admin: 04/16/23 11:07 Dose: Not Given Levothyroxine Sodium (Levothyroxine Sodium 100 Mcg/5 Ml Vial) 12.5 mcg IVPUSH DAILY@0600 [facility] Last Admin: 04/16/23 04:13 Dose: Not Given Memantine (Memantine Hcl 5 Mg Tablet) 5 mg PO DAILY [facility] Last Admin: 04/16/23 09:36 Dose: Not Given Mirtazapine (Mirtazapine 30 Mg Tablet) 30 mg PO BEDTIME [facility] Last Admin: 04/15/23 22:16 Dose: 30 mg Nystatin (Nystatin Powder 15 Gm Bottle) 1 appl TOPICAL BID [facility]; Protocol Last Admin: 04/16/23 09:38 Dose: 1 appl Pharmacy Consult (Consult Rx Vancomycin Dosing) 1 each MISCELLANE DAILY PRN PRN Reason: Consult order Pharmacy Consult (Consult Rx Parenteral Nutrition Ordering) 1 each MISCELLANE DAILY PRN PRN Reason: Consult order Sertraline HCl (Sertraline Hcl 25 Mg Tablet) 25 mg PO DAILY [facility] Last Admin: 04/16/23 09:36 Dose: Not Given Sodium Chloride (0.9 % Sodium Chloride Flush 3 Ml Syringe) 3 ml IVFLUSH QSHIFT [facility] Last Admin: 04/16/23 09:38 Dose: 3 ml Home Medications Medication Instructions Recorded Confirmed Last Taken Type memantine 5 mg tablet 5 mg PO DAILY 12/04/20 03/24/23 12/04/20 History mirtazapine 30 mg tablet 30 mg PO BEDTIME 12/04/20 03/24/23 12/03/20 History hydroxyzine HCl 25 mg tablet 25 mg PO BEDTIME PRN Itching 03/11/22 03/24/23 Unknown History levothyroxine 25 mcg capsule 25 mcg PO DAILY 03/11/22 03/24/23 Unknown History sertraline 25 mg tablet 25 mg PO DAILY 03/11/22 03/24/23 Unknown History simvastatin 10 mg tablet 10 mg PO DAILY 03/11/22 03/24/23 Unknown History collagenase clostridium histo. 250 1 appl topical DAILY 03/24/23 03/24/23 Unknown History unit/gram topical ointment (Santyl) docusate sodium 100 mg tablet 100 mg PO BID 03/24/23 03/24/23 Unknown History lidocaine 4 % topical gel 1 appl topical QIDACHS 03/24/23 03/24/23 Unknown History valacyclovir 1 gram tablet 1,000 mg PO TID 03/24/23 03/24/23 Unknown History Physical Exam 2 Vital Signs: Vital Signs: Last Vital Signs Temp 96.9 F 04/16/23 11:02 Pulse 94 04/16/23 11:02 Resp 20 04/16/23 11:02 BP 116/74 04/16/23 11:02 Pulse Ox 98 04/16/23 11:02 O2 Del Method Nasal Cannula 04/16/23 11:02 O2 Flow Rate 1 04/16/23 11:02 Oxygen Flow Rate 4 03/25/23 00:10 BMI result Body Mass Index 22.1 Patient is non communicative Pictures of the sacral decubiti progression since admission 03/24/2023 are reviewed. Results Labs 04/10/23 09:33 04/16/23 09:09 Labs: Abnormal lab results 04/16/23 Range/Units 09:09 BUN 8 L (9-16) mg/dL Random Glucose 134 H (60-115) mg/dL Calcium 8.2 L (8.4-10.2) mg/dL AST 40 H (5-37) U/L Alkaline Phosphatase 29 L (39-117) U/L Albumin 2.4 L (3.5-5.0) g/dL Random Vancomycin 13.9 L (15-20) mcg/mL BMP 04/16/23 09:09 Sodium 137 Potassium 3.6 Chloride 106 Carbon Dioxide 23 BUN 8 L Creatinine 0.50 Calcium 8.2 L Liver Function 04/16/23 Range/Units 09:09 Total Bilirubin 0.2 (0.0-1.0) mg/dL AST 40 H (5-37) U/L ALT 26 (0-40) U/L Alkaline Phosphatase 29 L (39-117) U/L Albumin 2.4 L (3.5-5.0) g/dL Urine 03/25/23 04/10/23 Range/Units 11:10 08:38 Urine Color Dark Yellow Yellow Urine Appearance Cloudy Clear Urine pH 5.5 5.0 (5.0-9.0) Ur Specific Casey >= 1.030 H >= 1.030 H (1.005-1.025) Urine Protein Trace Negative (Neg-Trace) mg/dL Urine Glucose (UA) 100 H Negative (Negative) mg/dL All other labs normal. Assessment and Plan (1) Sacral decubitus ulcer, stage IV: Status: Acute (2) Aspiration into lower respiratory tract: Qualifiers: Encounter type: initial encounter Qualified Code(s): T17.800A - Unspecified foreign body in other parts of respiratory tract causing asphyxiation, initial encounter Status: Acute (3) Seizure disorder: Status: Acute Plan In reviewing the EMR, there was no DPOAH/HCP noted, so I called the listed nursing facility at [phone] [facility], [address] [place] [address] in [place], [place] and in discussion with a director school of nursing they noted that the patient had been discharged from their facility over a year ago in been transferred to [facility] in [place], [place]. I have contacted administration regarding obtaining appropriate information to communicate with the patient's durable power of personal injury attorney for healthcare or healthcare proxy given this non emergent procedure that requires informed consent. I spoke with personal injury attorney Chelsea Ordoñez at [phone], who states that she has been court-appointed DPOAH/HCP. In discussion of the case, there is an upcoming date regarding transitioning the patient to hospice/end of life comfort care, Isotope Technician Raman requested holding off any procedures that may be heroic, cause pain and suffering or prolong his life. The possibility of progression and infection due to not debriding was discussed and apparently understood. Given the ongoing comorbidities and upcoming end of life discussion, will see the patient again if the plan changes. Time Spent With Patient Time: Total time managing care of this patient today ____ minutes. Procedures Date of Service Date of Service: 04/16/23
[2023-04-16 15:15] VITALS: BP 119/55; PULSE 92; RESP 16; TEMP 36.6; O2SAT 98
--- NOTE | 2023-04-16 15:41 | MHC.SL.SWA ---
Speech Pathologist Impression: Risk of aspiration, oropharyngeal dysphagia Risk of Aspiration Due to: Neurological Condition Reduced Cognition Dysphasia Diet Status: Recommend continue NPO at this time with PO trials with [employer]. Provide frequent oral care for comfort. Liquid Consistency and Strategies for Safe Swallow: Liquid Intake Recommendation: NPO Solid Food Consistency: Dietary Recommendations: NPO Oral Medication Intake: NPO Please contact the pharmacy regarding appropriate crushable or liquid drug formulations that are available whenever modified delivery is recommended. Supervision While Eating and Drinking for Safe Swallow: PO with [employer] Swallowing Recommended Treatments: Compens. Strategy Educat. Recommendation for Speech: Inpatient Speech Therapy [ End ] Frequency/Duration: M-F while inpatient. Date Range for Service Req: Timeline to reassess: [employer] Professor Clinican/Clinical Fellow: No Supervisory Statement: I have reviewed and agree with the student/clinical fellow's documentation: N/A Speech Language Pathologist: Allyssa Nolasco M.A., CCC-[employer]
[2023-04-16 17:32] LABS: Glucose, Whole Blood 117 mg/dL (60-115)
[2023-04-16 18:56] VITALS: BP 112/62; PULSE 91; RESP 18; TEMP 36.8; O2SAT 96
[2023-04-16] MEDS: Parenteral Nutrition 1,800 ML 75 ML IV (21:13)
[2023-04-16 23:50] VITALS: BP 120/64; PULSE 92; RESP 19; TEMP 36.7
[2023-04-17 00:05] LABS: Glucose, Whole Blood 90 mg/dL (60-115)
[2023-04-17] MEDS: 0.9 % Sodium Chloride Flush 3 ML SYRINGE IVFLUSH ×3 (00:26→23:56)
[2023-04-17] MEDS: Piperacillin Sodium/Tazobactam 4.5 GM in 0.9 % Sodium Chloride 100 ML IV ×5 (00:27→23:45)
[2023-04-17] MEDS: Heparin Sodium,Porcine 5,000 UNIT/ML VIAL 5000 UNIT SUBCUT ×3 (00:32→15:21)
[2023-04-17 03:50] VITALS: BP 110/63; RESP 18; TEMP 36.4; O2SAT 93
[2023-04-17] MEDS: Levothyroxine Sodium 100 MCG/5 ML VIAL 12.5 MCG IVPUSH (05:58)
[2023-04-17 06:07] LABS: Glucose, Whole Blood 128 mg/dL (60-115)
[2023-04-17 07:13] VITALS: BP 103/60; PULSE 98; RESP 18; TEMP 36.4; O2SAT 93
[2023-04-17 08:25] LABS: Alanine Aminotransferase 18 U/L (0-40); Albumin Level 2.7 g/dL (3.5-5.0); Alkaline Phosphatase 36 U/L (39-117); Anion Gap 16 (12-20); Aspartate Amino Transferase 53 U/L (5-37); Bilirubin Total 0.3 mg/dL (0.0-1.0); Blood Urea Nitrogen 7 mg/dL (9-16); Calcium 9.1 mg/dL (8.4-10.2); Carbon Dioxide 20 mmol/L (22-29); Chloride 110 mmol/L (96-108); Creatinine Clr Calc Pharmacy 107.3; Estimated Glomerular Filt Rate > 60; Glucose Random 123 mg/dL (60-115); Magnesium 2.4 mg/dL (1.6-2.6); Phosphorus 4.1 mg/dL (2.7-4.5); Sodium 142 mmol/L (135-145); Total Protein 7.6 g/dL (6.5-8.0)
[2023-04-17] MEDS: Valproic Acid (as Sodium Salt) 500 MG in Dextrose 5 % 50 ML 55 MG IV ×2 (08:30→20:49)
[2023-04-17] MEDS: Collagenase Clostridium Hist. 30 GM TUBE 1 APPL TOPICAL (08:35)
[2023-04-17] MEDS: Nystatin Powder 15 GM BOTTLE 1 APPL TOPICAL (08:35)
--- NOTE | 2023-04-17 09:35 | HO.PM.IMPN ---
Subjective Subjective Date of Service: 04/17/23 Interval History: No new isues, stable Physical Exam Vital Signs: Vital Signs: Last Vital Signs Temp 97.5 F 04/17/23 07:13 Pulse 98 04/17/23 07:13 Resp 18 04/17/23 07:13 BP 103/60 04/17/23 07:13 Pulse Ox 93 04/17/23 07:13 O2 Del Method Nasal Cannula 04/17/23 07:13 O2 Flow Rate 1 04/17/23 07:13 FiO2 94 04/16/23 23:50 Oxygen Flow Rate 4 03/25/23 00:10 BMI result Body Mass Index 22.1 Const: Other: General awake alert, but not conversing Neck supple no JVD. CVS regular rate rhythm, Respiratory lungs clear to auscultation, few rhonchi, no respiratory distress, no wheeze, Gastrointestinal abdomen soft, non tender, bowel sounds audible, no guarding , no rigidity. Extremities no edema, swollen right arm appear to be infiltrate IV Neuro nonfocal ,speech clear, verbalized minimally. Skin decub ulcer--see picture for decub ulcer Objective Data Active Medications Acetaminophen (Acetaminophen Supp 650 Mg Supp.Rect) 650 mg DE Q6H PRN PRN Reason: Fever Last Admin: 04/14/23 00:34 Dose: 650 mg Documented By: NITO Acetaminophen (Acetaminophen Supp 650 Mg Supp.Rect) 650 mg DE Q6H PRN PRN Reason: Pain, Mild (Pain Scale 1-3) Last Admin: 04/12/23 20:51 Dose: 650 mg Documented By: NITO Atenolol (Atenolol 25 Mg Tablet) 25 mg PO DAILY [facility]; Protocol Last Admin: 04/17/23 08:36 Dose: Not Given Documented By: KENA Non-Admin Reason: NPO Atorvastatin Calcium (Atorvastatin Calcium 10 Mg Tablet) 10 mg PO DAILY [facility] Last Admin: 03/26/23 08:44 Dose: 10 mg Documented By: ROBERT Collagenase (Collagenase Clostridium Hist. 30 Gm Tube) 1 appl TOPICAL DAILY [facility]; Protocol Last Admin: 04/17/23 08:35 Dose: 1 appl Documented By: KENA Dextrose (Dextrose 50 % 25 Gm/50 Ml Syringe) 25 gm IVPUSH Q15M PRN; Protocol PRN Reason: per Hypoglycemia Standing Ord. Last Admin: 04/06/23 23:22 Dose: 25 gm Documented By: CARLOS ENRIQUE Glucose (Glucose Gel 15 Gm Gel..Gram.) 15 gm PO Q15M PRN; Protocol PRN Reason: per Hypoglycemia Standing Ord. Guaifenesin (Guaifenesin 200 Mg/10 Ml 10 Ml Liquid) 10 ml PO Q4H PRN PRN Reason: Cough Last Admin: 03/28/23 09:25 Dose: 10 ml Documented By: ROBERT Heparin Sodium (Porcine) (Heparin Sodium,Porcine 5,000 Unit/Ml Vial) 5,000 unit SUBCUT Q8H [facility] Last Admin: 04/17/23 08:28 Dose: 5,000 unit Documented By: KENA Hydroxyzine HCl (Hydroxyzine Hcl 25 Mg Tablet) 25 mg PO BEDTIME PRN PRN Reason: Itching Valproic Acid 500 mg/ Dextrose 55 mls @ 55 mls/hr IV Q12H [facility] Last Admin: 04/17/23 08:30 Dose: 55 mls/hr Documented By: KENA Piperacillin Sod/Tazobactam (Sod 4.5 gm/ Sodium Chloride) 100 mls @ 200 mls/hr IV Q6H [facility] Last Infusion: 04/17/23 07:20 Dose: Infused Documented By: ABEL Vancomycin HCl 1,000 mg/ (Sodium Chloride) 270 mls @ 270 mls/hr IV Q12H [facility] Last Infusion: 04/17/23 00:25 Dose: Infused Documented By: ABEL Nutrition (Parenteral) (Parenteral Nutrition) 1,800 mls @ 75 mls/hr IV .Q24H [facility]; Protocol Stop: 04/17/23 20:59 Last Infusion: 04/17/23 08:33 Dose: 0 mls/hr Documented By: KENA Nutrition (Parenteral) (Parenteral Nutrition) 1,800 mls @ 75 mls/hr IV .Q24H [facility]; Protocol Stop: 04/18/23 20:59 Insulin Human Lispro (Insulin Lispro 100 Unit/Ml 3 Ml Vial) 0 unit SUBCUT Q6H [facility]; Protocol Last Admin: 04/17/23 06:05 Dose: Not Given Documented By: ABEL Non-Admin Reason: No Insulin Coverage Comments: POC 128 Levothyroxine Sodium (Levothyroxine Sodium 100 Mcg/5 Ml Vial) 12.5 mcg IVPUSH DAILY@0600 [facility] Last Admin: 04/17/23 05:58 Dose: 12.5 mcg Documented By: ABEL Memantine (Memantine Hcl 5 Mg Tablet) 5 mg PO DAILY [facility] Last Admin: 04/17/23 08:47 Dose: Not Given Documented By: KENA Non-Admin Reason: NPO Mirtazapine (Mirtazapine 30 Mg Tablet) 30 mg PO BEDTIME [facility] Last Admin: 04/16/23 21:48 Dose: Not Given Documented By: ELVIE Non-Admin Reason: NPO Nystatin (Nystatin Powder 15 Gm Bottle) 1 appl TOPICAL BID [facility]; Protocol Last Admin: 04/17/23 08:35 Dose: 1 appl Documented By: KEAN Pharmacy Consult (Consult Rx Vancomycin Dosing) 1 each MISCELLANE DAILY PRN PRN Reason: Consult order Pharmacy Consult (Consult Rx Parenteral Nutrition Ordering) 1 each MISCELLANE DAILY PRN PRN Reason: Consult order Sertraline HCl (Sertraline Hcl 25 Mg Tablet) 25 mg PO DAILY [facility] Last Admin: 04/17/23 08:36 Dose: Not Given Documented By: KENA Non-Admin Reason: NPO Sodium Chloride (0.9 % Sodium Chloride Flush 3 Ml Syringe) 3 ml IVFLUSH QSHIFT [facility] Last Admin: 04/17/23 08:29 Dose: 3 ml Documented By: KENA Labs 04/10/23 09:33 04/17/23 07:55 Labs: Laboratory Results - last 24 hr 04/16/23 04/16/23 04/16/23 09:09 10:54 17:25 Hold Purple Top Anion Gap 12 Estim Creat Clear Calc 124.4 Estimated GFR > 60 POC Glucose 109 117 H Random Glucose 134 H Calcium 8.2 L Phosphorus 3.4 Magnesium 1.9 Total Bilirubin 0.2 AST 40 H ALT 26 Alkaline Phosphatase 29 L Total Protein 6.7 Albumin 2.4 L 04/16/23 04/17/23 04/17/23 23:49 06:01 07:55 Hold Purple Top SEE NOTE Anion Gap 16 Estim Creat Clear Calc 107.3 Estimated GFR > 60 POC Glucose 90 128 H Random Glucose 123 H Calcium 9.1 D Phosphorus 4.1 Magnesium 2.4 Total Bilirubin 0.3 AST 53 H ALT 18 Alkaline Phosphatase 36 L Total Protein 7.6 Albumin 2.7 L Assessment and Plan (1) Aspiration into lower respiratory tract: Status: Acute (2) Hypoxia: Status: Acute (3) Dysphagia: Status: Inactive Plan 72 year old male with history of cognitive and neurobehavior dysfunction, seizure desorder here with acute hypoxic resp failure, aspiration pneumonitis and Covid New issues 04/10 Fever, tachycardia, low O2.. Sepsis w/u with CXR (negative, UA negative , Blood culture, CBC WNL, lactic acid normal). O2 sat on lower side Concern of aspiration again, added empric Zosyn on 04/10, supplemental O2 as needed 04/12 Blood culture 04/10, 1/ Bacilus species, likely contamination, stop Vanco 04/12 speech recommens NPO again. Continue TPN 04/12 Swollen right arm, likely infiltrated IV, US to rule clot April 23, court hearing to address goals of care Old issues Acute hypoxic respiratory failure due to covid-- hypoxia resolved, on RA 95%, repeat covid if negative, stop isolation Sepsis due to aspiration pneumonia--completed 7 days of Zosyn Metabolic Encephalopathy due to acute illness and underlying cognitive disorder, appear to be at baseline Hypernatremia resolved Dysphagiia. He has been on parenteral nutrition IV PPN started on (03/27/23) due dyspahagia and failed multiple swallow evals but did ok with Puree on 04/08. Will stop PPN if able to take in enough calory over the weekend. Guardian would not want a PEG. Speech to reassess tomorrow hypOkalemia : repleted and resolved mild bradycardia : resolved ,atenolol restarted, stable vitals hypothyroidism- tsh elevated ,Free t4-normal, continue levothyroxine iv Pressure (decubitus) ulcer/injury coccyx Stage 2: continue position change, IV PPN and other recommendation per wound nurse, debridment defered by guardian pending court hearing Seizure disorder on IV Depakote until able to take PO atypical depressive disorder/ Neuro Behavioral dysfunction continue home medications patient is resident of [facility] and has a guardian--Spoke to guardian Stephanie Singh [phone] about treatment plan, code status to be reconsider to DNR by court--try to update today 04/03 no answer.. Should proceed with PEG DVT prophylaxis: Heparin Full code, guardian is filling court docuement to have status change to DNR/DNI. Also pending Placement. ongoing hospitlization need:treatement of sepsis due to pneuomina, on IV PPN due to dysphagia. Time Spent With Patient Time: Total time managing care of this patient today ____ minutes. Quality Stroke Does the patient have a stroke diagnosis?: No VTE Prior VTE?: No VTE Risk Level:: Medical - moderate - high VTE Device Contraindication: Treatment Not Indicated VTE Drug Contraindication: N/A - Med Ordered
[2023-04-17 11:10] VITALS: BP 114/63; PULSE 97; RESP 18; TEMP 36.4; O2SAT 96
[2023-04-17] MEDS: vancomycin HCL 1,000 MG in 0.9 % Sodium Chloride 250 ML 270 MG IV (11:25)
[2023-04-17 11:44] LABS: Glucose, Whole Blood 115 mg/dL (60-115)
[2023-04-17 15:41] VITALS: BP 125/69; PULSE 90; RESP 17; TEMP 36.6; O2SAT 94
[2023-04-17 16:52] LABS: Glucose, Whole Blood 127 mg/dL (60-115)
[2023-04-17 20:00] VITALS: BP 123/77; PULSE 99; RESP 17; TEMP 36.7; O2SAT 95
[2023-04-17 20:42] LABS: Glucose, Whole Blood 122 mg/dL (60-115)
[2023-04-17 21:10] LABS: Vancomycin Trough 17.9 mcg/mL (10.0-20.0)
--- NOTE | 2023-04-17 21:35 | HE.PHANOTE ---
VANCO DOSE ADJUSTMENT BASED ON TROUGH CONTINUING TO INCREASE DOSE LOWERED TO 750 Q 12H. NEXT TROUGH 04/18 @ 2100
[2023-04-17] MEDS: Parenteral Nutrition 1,800 ML 75 ML IV (22:30)
[2023-04-18] VITALS: BP 113/56; PULSE 107; RESP 20; TEMP 36.5; O2SAT 93
[2023-04-18 00:28] LABS: Glucose, Whole Blood 122 mg/dL (60-115)
[2023-04-18] MEDS: Nystatin Powder 15 GM BOTTLE 1 APPL TOPICAL ×3 (00:28→22:39)
[2023-04-18] MEDS: Heparin Sodium,Porcine 5,000 UNIT/ML VIAL 5000 UNIT SUBCUT ×4 (00:39→23:49)
[2023-04-18] MEDS: vancomycin HCL 750 MG in 0.9 % Sodium Chloride 250 ML 265 MG IV ×2 (00:40→11:10)
[2023-04-18 03:17] VITALS: BP 133/69; PULSE 99; RESP 20; TEMP 36.4; O2SAT 97
[2023-04-18] MEDS: Levothyroxine Sodium 100 MCG/5 ML VIAL 12.5 MCG IVPUSH (06:07)
[2023-04-18 06:09] LABS: Glucose, Whole Blood 135 mg/dL (60-115)
[2023-04-18] MEDS: Piperacillin Sodium/Tazobactam 4.5 GM in 0.9 % Sodium Chloride 100 ML IV ×3 (06:11→17:55)
[2023-04-18 07:04] LABS: Alanine Aminotransferase 15 U/L (0-40); Albumin Level 2.5 g/dL (3.5-5.0); Alkaline Phosphatase 34 U/L (39-117); Anion Gap 12 (12-20); Aspartate Amino Transferase 38 U/L (5-37); Bilirubin Total 0.2 mg/dL (0.0-1.0); Blood Urea Nitrogen 6 mg/dL (9-16); Calcium 8.6 mg/dL (8.4-10.2); Carbon Dioxide 23 mmol/L (22-29); Chloride 112 mmol/L (96-108); Creatinine Clr Calc Pharmacy 107.3; Estimated Glomerular Filt Rate > 60; Glucose Random 147 mg/dL (60-115); Magnesium 2.1 mg/dL (1.6-2.6); Phosphorus 3.5 mg/dL (2.7-4.5); Potassium 3.1 mmol/L (3.3-5.1); Sodium 144 mmol/L (135-145); Total Protein 6.9 g/dL (6.5-8.0)
[2023-04-18 07:15] VITALS: BP 123/61; PULSE 93; RESP 16; TEMP 36.6; O2SAT 93
--- NOTE | 2023-04-18 08:44 | HO.PM.IMPN ---
Subjective Subjective Date of Service: 04/18/23 Interval History: No new isues, stable, 93% on room air Physical Exam Vital Signs: Vital Signs: Last Vital Signs Temp 97.9 F 04/18/23 07:15 Pulse 93 04/18/23 07:15 Resp 16 04/18/23 07:15 BP 123/61 04/18/23 07:15 Pulse Ox 93 04/18/23 07:15 O2 Del Method Room Air 04/18/23 07:15 O2 Flow Rate 1 04/18/23 03:17 FiO2 94 04/16/23 23:50 Oxygen Flow Rate 4 03/25/23 00:10 BMI result Body Mass Index 22.1 Const: Other: General awake alert, but not conversing Neck supple no JVD. CVS regular rate rhythm, Respiratory lungs clear to auscultation, few rhonchi, no respiratory distress, no wheeze, Gastrointestinal abdomen soft, non tender, bowel sounds audible, no guarding , no rigidity. Extremities no edema, swollen right arm appear to be infiltrate IV Neuro nonfocal ,speech clear, verbalized minimally. Skin decub ulcer--see picture for decub ulcer Objective Data Active Medications Acetaminophen (Acetaminophen Supp 650 Mg Supp.Rect) 650 mg AK Q6H PRN PRN Reason: Fever Last Admin: 04/14/23 00:34 Dose: 650 mg Documented By: NITO Acetaminophen (Acetaminophen Supp 650 Mg Supp.Rect) 650 mg AK Q6H PRN PRN Reason: Pain, Mild (Pain Scale 1-3) Last Admin: 04/12/23 20:51 Dose: 650 mg Documented By: NITO Atenolol (Atenolol 25 Mg Tablet) 25 mg PO DAILY [facility]; Protocol Last Admin: 04/17/23 08:36 Dose: Not Given Documented By: KENA Non-Admin Reason: NPO Atorvastatin Calcium (Atorvastatin Calcium 10 Mg Tablet) 10 mg PO DAILY [facility] Last Admin: 03/26/23 08:44 Dose: 10 mg Documented By: ROBERT Collagenase (Collagenase Clostridium Hist. 30 Gm Tube) 1 appl TOPICAL DAILY [facility]; Protocol Last Admin: 04/17/23 08:35 Dose: 1 appl Documented By: KENA Dextrose (Dextrose 50 % 25 Gm/50 Ml Syringe) 25 gm IVPUSH Q15M PRN; Protocol PRN Reason: per Hypoglycemia Standing Ord. Last Admin: 04/06/23 23:22 Dose: 25 gm Documented By: CARLOS ENRIQUE Glucose (Glucose Gel 15 Gm Gel..Gram.) 15 gm PO Q15M PRN; Protocol PRN Reason: per Hypoglycemia Standing Ord. Guaifenesin (Guaifenesin 200 Mg/10 Ml 10 Ml Liquid) 10 ml PO Q4H PRN PRN Reason: Cough Last Admin: 03/28/23 09:25 Dose: 10 ml Documented By: ROBERT Heparin Sodium (Porcine) (Heparin Sodium,Porcine 5,000 Unit/Ml Vial) 5,000 unit SUBCUT Q8H [facility] Last Admin: 04/18/23 00:39 Dose: 5,000 unit Documented By: DAVIDSON Hydroxyzine HCl (Hydroxyzine Hcl 25 Mg Tablet) 25 mg PO BEDTIME PRN PRN Reason: Itching Valproic Acid 500 mg/ Dextrose 55 mls @ 55 mls/hr IV Q12H [facility] Last Infusion: 04/17/23 21:50 Dose: Infused Documented By: DAVIDSON Piperacillin Sod/Tazobactam (Sod 4.5 gm/ Sodium Chloride) 100 mls @ 200 mls/hr IV Q6H [facility] Last Infusion: 04/18/23 06:42 Dose: Infused Documented By: DAVIDSON Nutrition (Parenteral) (Parenteral Nutrition) 1,800 mls @ 75 mls/hr IV .Q24H [facility]; Protocol Stop: 04/18/23 20:59 Last Admin: 04/17/23 22:30 Dose: 75 mls/hr Documented By: DAVIDSON Vancomycin HCl 750 mg/ Sodium (Chloride) 265 mls @ 265 mls/hr IV Q12H [facility] Last Infusion: 04/18/23 01:40 Dose: Infused Documented By: DAVIDSON Nutrition (Parenteral) (Parenteral Nutrition) 1,920 mls @ 75 mls/hr IV .Q24H [facility]; Protocol Stop: 04/19/23 20:59 Insulin Human Lispro (Insulin Lispro 100 Unit/Ml 3 Ml Vial) 0 unit SUBCUT Q6H [facility]; Protocol Last Admin: 04/18/23 06:18 Dose: Not Given Documented By: DAVIDSON Non-Admin Reason: No Insulin Coverage Levothyroxine Sodium (Levothyroxine Sodium 100 Mcg/5 Ml Vial) 12.5 mcg IVPUSH DAILY@0600 [facility] Last Admin: 04/18/23 06:07 Dose: 12.5 mcg Documented By: DAVIDSON Memantine (Memantine Hcl 5 Mg Tablet) 5 mg PO DAILY [facility] Last Admin: 04/17/23 08:47 Dose: Not Given Documented By: KENA Non-Admin Reason: NPO Mirtazapine (Mirtazapine 30 Mg Tablet) 30 mg PO BEDTIME [facility] Last Admin: 04/18/23 00:28 Dose: Not Given Documented By: DAVIDSON Non-Admin Reason: NPO Nystatin (Nystatin Powder 15 Gm Bottle) 1 appl TOPICAL BID [facility]; Protocol Last Admin: 04/18/23 00:28 Dose: 1 appl Documented By: DAVIDSON Pharmacy Consult (Consult Rx Vancomycin Dosing) 1 each MISCELLANE DAILY PRN PRN Reason: Consult order Pharmacy Consult (Consult Rx Parenteral Nutrition Ordering) 1 each MISCELLANE DAILY PRN PRN Reason: Consult order Sertraline HCl (Sertraline Hcl 25 Mg Tablet) 25 mg PO DAILY [facility] Last Admin: 04/17/23 08:36 Dose: Not Given Documented By: KENA Non-Admin Reason: NPO Sodium Chloride (0.9 % Sodium Chloride Flush 3 Ml Syringe) 3 ml IVFLUSH QSHIFT [facility] Last Admin: 04/17/23 23:56 Dose: 3 ml Documented By: DAVIDSON Labs 04/10/23 09:33 04/18/23 06:11 Labs: Laboratory Results - last 24 hr 04/17/23 04/17/23 04/17/23 11:31 16:44 20:13 Hold Purple Top Anion Gap Estim Creat Clear Calc Estimated GFR POC Glucose 115 127 H 122 H Random Glucose Calcium Phosphorus Magnesium Total Bilirubin AST ALT Alkaline Phosphatase Total Protein Albumin Vancomycin Trough 04/17/23 04/17/23 04/18/23 20:53 23:53 06:04 Hold Purple Top Anion Gap Estim Creat Clear Calc Estimated GFR POC Glucose 122 H 135 H Random Glucose Calcium Phosphorus Magnesium Total Bilirubin AST ALT Alkaline Phosphatase Total Protein Albumin Vancomycin Trough 17.9 04/18/23 06:11 Hold Purple Top SEE NOTE Anion Gap 12 Estim Creat Clear Calc 107.3 Estimated GFR > 60 POC Glucose Random Glucose 147 H Calcium 8.6 Phosphorus 3.5 Magnesium 2.1 Total Bilirubin 0.2 AST 38 H ALT 15 Alkaline Phosphatase 34 L Total Protein 6.9 Albumin 2.5 L Vancomycin Trough Microbiology Microbiology Results: Microbiology 04/12/23 22:51 Blood Culture - Final Blood - Venous No growth after 5 days. Assessment and Plan (1) COVID-19: Status: Acute (2) Hypoxia: Status: Acute Plan 72 year old male with history of cognitive and neurobehavior dysfunction, seizure desorder here with acute hypoxic resp failure, aspiration pneumonitis and Covid New issues 04/10 Fever, tachycardia, low O2.. Sepsis w/u with CXR (negative, UA negative , Blood culture, CBC WNL, lactic acid normal). O2 sat on lower side Concern of aspiration again, added empric Zosyn on 04/10, supplemental O2 as needed 04/12 Blood culture 04/10, 1/2 Bacilus species, likely contamination, stop Vanco 04/12 speech recommens NPO again. Continue TPN 04/12 Swollen right arm, likely infiltrated IV, US to rule clot April 23, court hearing to address goals of care Old issues Acute hypoxic respiratory failure due to covid-- hypoxia resolved, on RA 95%, repeat covid if negative, stop isolation Sepsis due to aspiration pneumonia--completed 7 days of Zosyn Metabolic Encephalopathy due to acute illness and underlying cognitive disorder, appear to be at baseline Hypernatremia resolved HypOkalemia--correct in PPN Dysphagiia. He has been on parenteral nutrition IV PPN started on (03/27/23) due dyspahagia and failed multiple swallow evals but did ok with Puree on 04/08. Will stop PPN if able to take in enough calory over the weekend. Guardian would not want a PEG. Speech to reassess tomorrow hypOkalemia : repleted and resolved mild bradycardia : resolved ,atenolol restarted, stable vitals hypothyroidism- tsh elevated ,Free t4-normal, continue levothyroxine iv Pressure (decubitus) ulcer/injury coccyx Stage 2: continue position change, IV PPN and other recommendation per wound nurse, debridment defered by guardian pending court hearing Seizure disorder on IV Depakote until able to take PO atypical depressive disorder/ Neuro Behavioral dysfunction continue home medications patient is resident [facility] and has a guardian--Spoke to guardian Stephanie Singh [phone] about treatment plan, code status to be reconsider to DNR by court--try to update today 04/03 no answer.. Should proceed with PEG DVT prophylaxis: Heparin Full code, guardian is filling court docuement to have status change to DNR/DNI. Also pending Placement. ongoing hospitlization need:treatement of sepsis due to pneuomina, on IV PPN due to dysphagia. Time Spent With Patient Time: Total time managing care of this patient today ____ minutes. Quality Stroke Does the patient have a stroke diagnosis?: No VTE Prior VTE?: No VTE Risk Level:: Medical - moderate - high VTE Device Contraindication: Treatment Not Indicated VTE Drug Contraindication: N/A - Med Ordered
[2023-04-18] MEDS: Collagenase Clostridium Hist. 30 GM TUBE 1 APPL TOPICAL (08:50)
[2023-04-18] MEDS: Valproic Acid (as Sodium Salt) 500 MG in Dextrose 5 % 50 ML 55 MG IV ×2 (08:54→22:30)
[2023-04-18 11:17] VITALS: BP 134/73; PULSE 97; RESP 20; TEMP 36.2; O2SAT 91
[2023-04-18 12:05] LABS: Glucose, Whole Blood 112 mg/dL (60-115)
[2023-04-18 16:00] VITALS: BP 115/62; PULSE 97; RESP 20; TEMP 36.9; O2SAT 94
[2023-04-18 17:57] LABS: Glucose, Whole Blood 147 mg/dL (60-115)
[2023-04-18 19:43] VITALS: BP 122/70; PULSE 89; RESP 18; TEMP 37.1; O2SAT 93
[2023-04-18 21:33] LABS: Vancomycin Random 13.7 mcg/mL (15-20)
--- NOTE | 2023-04-18 21:51 | HE.PHANOTE ---
VANCO DOSE ADJUSTMENT BASED ON SCR AND TROUGH OF 13.7. DOSE INCREASED TO 1000 Q 12H
[2023-04-18] MEDS: vancomycin HCL 1,000 MG in 0.9 % Sodium Chloride 250 ML 270 MG IV (23:50)
[2023-04-19] VITALS (7 sets, daily range): BP systolic 113–138; BP diastolic 58–89; PULSE 89–105; RESP 18–24; TEMP 35.9–37.5; O2SAT 90–95
[2023-04-19 00:20] LABS: Glucose, Whole Blood 103 mg/dL (60-115)
[2023-04-19] MEDS: Levothyroxine Sodium 100 MCG/5 ML VIAL 12.5 MCG IVPUSH (05:59)
[2023-04-19 06:39] LABS: Glucose, Whole Blood 132 mg/dL (60-115)
[2023-04-19 07:07] LABS: Alanine Aminotransferase 15 U/L (0-40); Albumin Level 2.6 g/dL (3.5-5.0); Alkaline Phosphatase 37 U/L (39-117); Anion Gap 14 (12-20); Aspartate Amino Transferase 36 U/L (5-37); Bilirubin Total 0.1 mg/dL (0.0-1.0); Blood Urea Nitrogen 6 mg/dL (9-16); Calcium 8.9 mg/dL (8.4-10.2); Carbon Dioxide 23 mmol/L (22-29); Chloride 111 mmol/L (96-108); Creatinine Clr Calc Pharmacy 100.3; Estimated Glomerular Filt Rate > 60; Glucose Random 136 mg/dL (60-115); Magnesium 2.1 mg/dL (1.6-2.6); Phosphorus 3.3 mg/dL (2.7-4.5); Potassium 3.2 mmol/L (3.3-5.1); Sodium 145 mmol/L (135-145); Total Protein 7.3 g/dL (6.5-8.0)
--- NOTE | 2023-04-19 07:17 | PC.NURSE ---
pt having frequent loose stools of loose, mucousy consistency. Dr. Lovelace notified. sample collected and sent to lab. bilateral buttocks unstageable pressure injury dressings changed. gauze dressing found to have green discharge. wound cleaned with saline. santyl applied to wound bed. moist gauze applied. foam dressing placed over. Dr. Lovelace also notified.
--- NOTE | 2023-04-19 07:17 | PC.NURSE ---
Parenteral nutrition was unable to be scanned due to bag volume discrepancy. Bag and additives double checked with Junaid Armenta RN. Unable to reach overnight pharmacy due to telephone downtime for several hours. When reached they do not do anything with parenteral nutrition overnight. Pharmacy called this AM and issue identified and corrected for next dose but unable to fix for this bag. Clinical Superviser Suyapa aware, community health nurse aware. Bag hung 04/19/23 @ 0145, input documented as other input through 0645 04/19/23 for a total of 375cc.
--- NOTE | 2023-04-19 08:48 | HO.PM.IMPN ---
Subjective Subjective Date of Service: 04/19/23 Interval History: No new isues, stable, 95% on room air Physical Exam Vital Signs: Vital Signs: Last Vital Signs Temp 97.8 F 04/19/23 07:55 Pulse 91 04/19/23 07:55 Resp 24 H 04/19/23 07:55 BP 113/58 L 04/19/23 07:55 Pulse Ox 95 04/19/23 07:55 O2 Del Method Room Air 04/19/23 07:55 O2 Flow Rate 1 04/18/23 03:17 FiO2 94 04/16/23 23:50 Oxygen Flow Rate 4 03/25/23 00:10 BMI result Body Mass Index 22.1 Const: Other: General awake alert, but not conversing Neck supple no JVD. CVS regular rate rhythm, Respiratory lungs clear to auscultation, few rhonchi, no respiratory distress, no wheeze, Gastrointestinal abdomen soft, non tender, bowel sounds audible, no guarding , no rigidity. Extremities no edema, swollen right arm appear to be infiltrate IV Neuro nonfocal ,speech clear, verbalized minimally. Skin decub ulcer--see picture for decub ulcer Objective Data Active Medications Acetaminophen (Acetaminophen Supp 650 Mg Supp.Rect) 650 mg [place] Q6H PRN PRN Reason: Fever Last Admin: 04/14/23 00:34 Dose: 650 mg Documented By: NITO Acetaminophen (Acetaminophen Supp 650 Mg Supp.Rect) 650 mg [place] Q6H PRN PRN Reason: Pain, Mild (Pain Scale 1-3) Last Admin: 04/12/23 20:51 Dose: 650 mg Documented By: NITO Atenolol (Atenolol 25 Mg Tablet) 25 mg PO DAILY [facility]; Protocol Last Admin: 04/18/23 08:46 Dose: Not Given Documented By: KENA Non-Admin Reason: NPO Atorvastatin Calcium (Atorvastatin Calcium 10 Mg Tablet) 10 mg PO DAILY [facility] Last Admin: 03/26/23 08:44 Dose: 10 mg Documented By: ROBERT Collagenase (Collagenase Clostridium Hist. 30 Gm Tube) 1 appl TOPICAL DAILY [facility]; Protocol Last Admin: 04/18/23 08:50 Dose: 1 appl Documented By: KENA Dextrose (Dextrose 50 % 25 Gm/50 Ml Syringe) 25 gm IVPUSH Q15M PRN; Protocol PRN Reason: per Hypoglycemia Standing Ord. Last Admin: 04/06/23 23:22 Dose: 25 gm Documented By: CARLOS ENRIQUE Glucose (Glucose Gel 15 Gm Gel..Gram.) 15 gm PO Q15M PRN; Protocol PRN Reason: per Hypoglycemia Standing Ord. Guaifenesin (Guaifenesin 200 Mg/10 Ml 10 Ml Liquid) 10 ml PO Q4H PRN PRN Reason: Cough Last Admin: 03/28/23 09:25 Dose: 10 ml Documented By: ROBERT Heparin Sodium (Porcine) (Heparin Sodium,Porcine 5,000 Unit/Ml Vial) 5,000 unit SUBCUT Q8H [facility] Last Admin: 04/18/23 23:49 Dose: 5,000 unit Documented By: NITO Hydroxyzine HCl (Hydroxyzine Hcl 25 Mg Tablet) 25 mg PO BEDTIME PRN PRN Reason: Itching Valproic Acid 500 mg/ Dextrose 55 mls @ 55 mls/hr IV Q12H [facility] Last Infusion: 04/18/23 23:45 Dose: Infused Documented By: NITO Nutrition (Parenteral) (Parenteral Nutrition) 1,920 mls @ 75 mls/hr IV .Q24H [facility]; Protocol Stop: 04/19/23 20:59 Last Admin: 04/19/23 08:09 Dose: Not Given Documented By: ROBERT Non-Admin Reason: HUNG BY NIGHT RN Vancomycin HCl 1,000 mg/ (Sodium Chloride) 270 mls @ 270 mls/hr IV Q12H [facility] Last Infusion: 04/19/23 01:07 Dose: Infused Documented By: NITO Nutrition (Parenteral) (Parenteral Nutrition) 1,920 mls @ 75 mls/hr IV .Q24H [facility]; Protocol Stop: 04/20/23 20:59 Insulin Human Lispro (Insulin Lispro 100 Unit/Ml 3 Ml Vial) 0 unit SUBCUT Q6H [facility]; Protocol Last Admin: 04/19/23 06:57 Dose: Not Given Documented By: NITO Non-Rachel Reason: No Insulin Coverage Levothyroxine Sodium (Levothyroxine Sodium 100 Mcg/5 Ml Vial) 12.5 mcg IVPUSH DAILY@0600 [facility] Last Admin: 04/19/23 05:59 Dose: 12.5 mcg Documented By: NITO Memantine (Memantine Hcl 5 Mg Tablet) 5 mg PO DAILY [facility] Last Admin: 04/18/23 08:46 Dose: Not Given Documented By: KENA Non-Admin Reason: NPO Mirtazapine (Mirtazapine 30 Mg Tablet) 30 mg PO BEDTIME [facility] Last Admin: 04/18/23 22:29 Dose: Not Given Documented By: NITO Non-Admin Reason: NPO Nystatin (Nystatin Powder 15 Gm Bottle) 1 appl TOPICAL BID [facility]; Protocol Last Admin: 04/18/23 22:39 Dose: 1 appl Documented By: NITO Pharmacy Consult (Consult Rx Vancomycin Dosing) 1 each MISCELLANE DAILY PRN PRN Reason: Consult order Pharmacy Consult (Consult Rx Parenteral Nutrition Ordering) 1 each MISCELLANE DAILY PRN PRN Reason: Consult order Sertraline HCl (Sertraline Hcl 25 Mg Tablet) 25 mg PO DAILY [facility] Last Admin: 04/18/23 08:46 Dose: Not Given Documented By: KENA Non-Admin Reason: NPO Sodium Chloride (0.9 % Sodium Chloride Flush 3 Ml Syringe) 3 ml IVFLUSH QSHIFT [facility] Last Admin: 04/19/23 00:05 Dose: Not Given Documented By: NITO Non-Rachel Reason: Previously Administered Labs 04/10/23 09:33 04/19/23 06:16 Labs: Laboratory Results - last 24 hr 04/18/23 04/18/23 04/18/23 12:00 17:52 21:07 Hold Purple Top Anion Gap Estim Creat Clear Calc Estimated GFR POC Glucose 112 147 H Random Glucose Calcium Phosphorus Magnesium Total Bilirubin AST ALT Alkaline Phosphatase Total Protein Albumin Random Vancomycin 13.7 L 04/19/23 04/19/23 04/19/23 00:15 06:16 06:35 Hold Purple Top SEE NOTE Anion Gap 14 Estim Creat Clear Calc 100.3 Estimated GFR > 60 POC Glucose 103 132 H Random Glucose 136 H Calcium 8.9 Phosphorus 3.3 Magnesium 2.1 Total Bilirubin 0.1 AST 36 ALT 15 Alkaline Phosphatase 37 L Total Protein 7.3 Albumin 2.6 L Random Vancomycin Assessment and Plan (1) COVID-19: Status: Acute (2) Hypoxia: Status: Acute Plan 72 year old male with history of cognitive and neurobehavior dysfunction, seizure desorder here with acute hypoxic resp failure, aspiration pneumonitis and Covid New issues 04/10 Fever, tachycardia, low O2.. Sepsis w/u with CXR (negative, UA negative , Blood culture, CBC WNL, lactic acid normal). O2 sat on lower side Concern of aspiration again, added empric Zosyn on 04/10, supplemental O2 as needed 04/12 Blood culture 04/10, 1 Bacilus species, likely contamination, stop Vanco 04/12 speech recommens NPO again. Continue TPN 04/12 Swollen right arm, likely infiltrated IV, US to rule clot April 23, court hearing to address goals of care Old issues Acute hypoxic respiratory failure due to covid-- hypoxia resolved, on RA 95%, repeat covid if negative, stop isolation Sepsis due to aspiration pneumonia--completed 7 days of Zosyn Metabolic Encephalopathy due to acute illness and underlying cognitive disorder, appear to be at baseline Hypernatremia resolved HypOkalemia--correct in PPN Dysphagiia. He has been on parenteral nutrition IV PPN started on (03/27/23) due dyspahagia and failed multiple swallow evals but did ok with Puree on 04/08. Will stop PPN if able to take in enough calory over the weekend. Guardian would not want a PEG. Speech to reassess tomorrow hypOkalemia : repleted and resolved mild bradycardia : resolved ,atenolol restarted, stable vitals hypothyroidism- tsh elevated ,Free t4-normal, continue levothyroxine iv Pressure (decubitus) ulcer/injury coccyx Stage 2: continue position change, IV PPN and other recommendation per wound nurse, debridment defered by guardian pending court hearing Seizure disorder on IV Depakote until able to take PO atypical depressive disorder/ Neuro Behavioral dysfunction continue home medications patient is resident of [facility] and has a guardian--Spoke to varsha Singh [phone] about treatment plan, code status to be reconsider to DNR by court--try to update today 04/03 no answer.. Should proceed with PEG DVT prophylaxis: Heparin Full code, guardian is filling court docuement to have status change to DNR/DNI. Also pending Placement. ongoing hospitlization need:treatement of sepsis due to pneuomina, on IV PPN due to dysphagia. Time Spent With Patient Time: Total time managing care of this patient today ____ minutes. Quality Stroke Does the patient have a stroke diagnosis?: No VTE Prior VTE?: No VTE Risk Level:: Medical - moderate - high VTE Device Contraindication: Treatment Not Indicated VTE Drug Contraindication: N/A - Med Ordered
[2023-04-19 08:57] LABS: CDiff Gene PCR NEGATIVE (Negative)
[2023-04-19] MEDS: 0.9 % Sodium Chloride Flush 3 ML SYRINGE IVFLUSH ×2 (09:07→21:53)
[2023-04-19] MEDS: Heparin Sodium,Porcine 5,000 UNIT/ML VIAL 5000 UNIT SUBCUT ×3 (09:07→23:14)
[2023-04-19] MEDS: Valproic Acid (as Sodium Salt) 500 MG in Dextrose 5 % 50 ML 55 MG IV ×2 (09:07→21:53)
[2023-04-19] MEDS: Collagenase Clostridium Hist. 30 GM TUBE 1 APPL TOPICAL (09:07)
[2023-04-19] MEDS: Nystatin Powder 15 GM BOTTLE 1 APPL TOPICAL ×2 (09:08→23:06)
--- NOTE | 2023-04-19 09:34 | MHC.CM.PN ---
EMR REVIEWED, PT AWAITING LTC BED OFFER, COURT DATE FOR EXPANSION OF GUARDIANSHIP 04/23, PER GUARDIAN BALANCE OWED TO TAMI LECHUGA STILL NEEDS TO BE PAID OFF AND WILL LIKELY BE DONE THIS WEEK, NO DC AT THIS TIME, CM WILL CONT TO FOLLOW FOR LTC PLACEMENT AND DC NEEDS.
--- NOTE | 2023-04-19 09:49 | MHC.SLORD ---
Speech Language Pathology Order Status: RN & CUTTER APPRENTICE HAND unable to wake pt this morning. Pt lethargic, not waking to sternal rub, not appropriate for PO trials. RN to notify CUTTER APPRENTICE HAND should pt be able to participate in bedside swallow eval later. Otherwise, plan to re-attempt eval tomorrow morning.
[2023-04-19] MEDS: vancomycin HCL 1,000 MG in 0.9 % Sodium Chloride 250 ML 270 MG IV ×2 (10:20→23:10)
--- NOTE | 2023-04-19 10:25 | MHC.CLN ---
F/U PPN CONTINUES DISCUSSED WITH PHARMACY CONTINUE PPN AT MAX GOAL RATE 75ML/HR PROVIDES 1848 TOTAL KCALS FROM FORMULA AND LIPIDS (28KCALS/KG), 77G PROTEIN (1.2G/KG), 180G DEXTROSE WITH 93G LIPIDS (1.4G/KG) REPLETE LYTES NEEDED PPN PROMOTES WOUND HEALING
[2023-04-19 12:08] LABS: Glucose, Whole Blood 110 mg/dL (60-115)
[2023-04-19 18:17] LABS: Glucose, Whole Blood 139 mg/dL (60-115)
[2023-04-19 21:39] LABS: Vancomycin Random 17.9 mcg/mL (15-20)
--- NOTE | 2023-04-19 21:50 | HE.PHANOTE ---
RE KARSONO PT SEEMS TO BE AT STEADY STate. will keep dose the same. next level due 04/20 @2100
[2023-04-19] MEDS: Parenteral Nutrition 1,800 ML 75 ML IV (21:53)
[2023-04-20 00:39] LABS: Glucose, Whole Blood 102 mg/dL (60-115)
[2023-04-20 03:12] VITALS: BP 133/68; PULSE 104; RESP 20; TEMP 36.9; O2SAT 93
[2023-04-20 06:58] LABS: Glucose, Whole Blood 97 mg/dL (60-115)
[2023-04-20] MEDS: Levothyroxine Sodium 100 MCG/5 ML VIAL 12.5 MCG IVPUSH (06:59)
[2023-04-20 07:09] LABS: Alanine Aminotransferase 13 U/L (0-40); Albumin Level 2.5 g/dL (3.5-5.0); Alkaline Phosphatase 36 U/L (39-117); Anion Gap 15 (12-20); Aspartate Amino Transferase 32 U/L (5-37); Bilirubin Total 0.2 mg/dL (0.0-1.0); Blood Urea Nitrogen 9 mg/dL (9-16); Calcium 8.8 mg/dL (8.4-10.2); Carbon Dioxide 22 mmol/L (22-29); Chloride 115 mmol/L (96-108); Creatinine Clr Calc Pharmacy 88.9; Estimated Glomerular Filt Rate > 60; Glucose Random 102 mg/dL (60-115); Magnesium 2.3 mg/dL (1.6-2.6); Potassium 3.3 mmol/L (3.3-5.1); Sodium 149 mmol/L (135-145); Total Protein 7.3 g/dL (6.5-8.0); Triglycerides 135 mg/dL (<150)
[2023-04-20 07:34] VITALS: BP 140/74; PULSE 89; RESP 19; TEMP 36.6; O2SAT 94
[2023-04-20] MEDS: Heparin Sodium,Porcine 5,000 UNIT/ML VIAL 5000 UNIT SUBCUT ×2 (08:30→16:57)
[2023-04-20] MEDS: Valproic Acid (as Sodium Salt) 500 MG in Dextrose 5 % 50 ML 55 MG IV ×2 (08:30→22:35)
[2023-04-20] MEDS: 0.9 % Sodium Chloride Flush 3 ML SYRINGE IVFLUSH ×2 (08:30→16:58)
[2023-04-20] MEDS: Collagenase Clostridium Hist. 30 GM TUBE 1 APPL TOPICAL (08:31)
[2023-04-20] MEDS: Nystatin Powder 15 GM BOTTLE 1 APPL TOPICAL ×2 (08:31→22:35)
[2023-04-20] MEDS: Potassium Phosphate/NS 15 MMOL/250 ML PLAST..BAG 62.5 MMOL IV (09:14)
--- NOTE | 2023-04-20 10:04 | MHC.SPEECHCO ---
Pt is cachetic on approach. Not awakening to name or light touch. Per RN, this has been his consistent presentation this morning. HoB raised to 30 [address] date scheduled for 04/23 per EMR.
--- NOTE | 2023-04-20 10:05 | MHC.CLN ---
F/U PPN CONTINUES DISCUSSED WITH PHARMACY CONTINUE PPN AT MAX GOAL RATE 75ML/HR PROVIDES 1848 TOTAL KCALS FROM FORMULA AND LIPIDS (28KCALS/KG), 77G PROTEIN (1.2G/KG), 180G DEXTROSE WITH 93G LIPIDS (1.4G/KG) REPLETE LYTES NEEDED
[2023-04-20 11:03] VITALS: BP 166/84; PULSE 102; RESP 19; TEMP 36.7; O2SAT 97
[2023-04-20 11:13] LABS: Glucose, Whole Blood 110 mg/dL (60-115)
[2023-04-20] MEDS: vancomycin HCL 1,000 MG in 0.9 % Sodium Chloride 250 ML 270 MG IV (11:31)
[2023-04-20] MEDS: Dextrose 5 % and 0.45 % NaCl 1,000 ML 80 ML IVCONT (11:31)
[2023-04-20 15:41] VITALS: BP 157/70; PULSE 107; RESP 16; TEMP 36.7; O2SAT 97
--- NOTE | 2023-04-20 17:08 | HO.PM.IMPN ---
Subjective Subjective Date of Service: 04/21/23 Interval History: follow up Review of Systems mild hypernatremia could not get tpn last night Physical Exam Vital Signs: Vital Signs: Last Vital Signs Temp 98.0 F 04/20/23 15:41 Pulse 107 H 04/20/23 15:41 Resp 16 04/20/23 15:41 BP 157/70 H 04/20/23 15:41 Pulse Ox 97 04/20/23 15:41 O2 Del Method Room Air 04/20/23 15:41 O2 Flow Rate 1 04/18/23 03:17 FiO2 94 04/16/23 23:50 Oxygen Flow Rate 4 03/25/23 00:10 BMI result Body Mass Index 22.1 General awake alert, but not conversing Neck supple no JVD. CVS regular rate rhythm,[id number] Respiratory lungs clear to auscultation, few rhonchi, no respiratory distress, no wheeze. Gastrointestinal abdomen soft, non tender, bowel sounds audible, no guarding or rigidity. Extremities no edema Neuro nonfocal ,speech clear, verbalized minimally. Skin decub ulcer--see picture for decub ulcer Objective Data Active Medications Acetaminophen (Acetaminophen Supp 650 Mg Supp.Rect) 650 mg AL Q6H PRN PRN Reason: Fever Last Admin: 04/14/23 00:34 Dose: 650 mg Documented By: NITO Acetaminophen (Acetaminophen Supp 650 Mg Supp.Rect) 650 mg AL Q6H PRN PRN Reason: Pain, Mild (Pain Scale 1-3) Last Admin: 04/12/23 20:51 Dose: 650 mg Documented By: NITO Atenolol (Atenolol 25 Mg Tablet) 25 mg PO DAILY [facility]; Protocol Last Admin: 04/20/23 08:31 Dose: Not Given Documented By: ROBERT Non-Admin Reason: NPO Atorvastatin Calcium (Atorvastatin Calcium 10 Mg Tablet) 10 mg PO DAILY [facility] Last Admin: 03/26/23 08:44 Dose: 10 mg Documented By: ROBERT Collagenase (Collagenase Clostridium Hist. 30 Gm Tube) 1 appl TOPICAL DAILY [facility]; Protocol Last Admin: 04/20/23 08:31 Dose: 1 appl Documented By: ROBERT Dextrose (Dextrose 50 % 25 Gm/50 Ml Syringe) 25 gm IVPUSH Q15M PRN; Protocol PRN Reason: per Hypoglycemia Standing Ord. Last Admin: 04/06/23 23:22 Dose: 25 gm Documented By: CARLOS ENRIQUE Glucose (Glucose Gel 15 Gm Gel..Gram.) 15 gm PO Q15M PRN; Protocol PRN Reason: per Hypoglycemia Standing Ord. Guaifenesin (Guaifenesin 200 Mg/10 Ml 10 Ml Liquid) 10 ml PO Q4H PRN PRN Reason: Cough Last Admin: 03/28/23 09:25 Dose: 10 ml Documented By: ROBERT Heparin Sodium (Porcine) (Heparin Sodium,Porcine 5,000 Unit/Ml Vial) 5,000 unit SUBCUT Q8H [facility] Last Admin: 04/20/23 16:57 Dose: 5,000 unit Documented By: ROBERT Hydroxyzine HCl (Hydroxyzine Hcl 25 Mg Tablet) 25 mg PO BEDTIME PRN PRN Reason: Itching Valproic Acid 500 mg/ Dextrose 55 mls @ 55 mls/hr IV Q12H [facility] Last Infusion: 04/20/23 09:55 Dose: Infused Documented By: JOSEFINA Vancomycin HCl 1,000 mg/ (Sodium Chloride) 270 mls @ 270 mls/hr IV Q12H [facility] Last Infusion: 04/20/23 12:52 Dose: Infused Documented By: ROBERT Nutrition (Parenteral) (Parenteral Nutrition) 1,800 mls @ 75 mls/hr IV .Q24H [facility]; Protocol Stop: 04/20/23 20:59 Last Infusion: 04/20/23 00:30 Dose: 75 mls/hr Documented By: WESTLEY Nutrition (Parenteral) (Parenteral Nutrition) 1,800 mls @ 75 mls/hr IV .Q24H [facility]; Protocol Stop: 04/21/23 20:59 Dextrose/Sodium Chloride (D51/2ns) 1,000 mls @ 80 mls/hr IVCONT .[id number] [facility] Last Infusion: 04/20/23 12:52 Dose: 80 mls/hr Documented By: ROBERT Insulin Human Lispro (Insulin Lispro 100 Unit/Ml 3 Ml Vial) 0 unit SUBCUT Q6H [facility]; Protocol Last Admin: 04/20/23 11:19 Dose: Not Given Documented By: ROBERT Non-Admin Reason: No Insulin Coverage Levothyroxine Sodium (Levothyroxine Sodium 100 Mcg/5 Ml Vial) 12.5 mcg IVPUSH DAILY@0600 [facility] Last Admin: 04/20/23 06:59 Dose: 12.5 mcg Documented By: WESTLEY Memantine (Memantine Hcl 5 Mg Tablet) 5 mg PO DAILY [facility] Last Admin: 04/20/23 08:31 Dose: Not Given Documented By: ROBERT Non-Admin Reason: NPO Mirtazapine (Mirtazapine 30 Mg Tablet) 30 mg PO BEDTIME [facility] Last Admin: 04/19/23 21:50 Dose: Not Given Documented By: WESTLEY Non-Admin Reason: NPO, aspiration risk. Nystatin (Nystatin Powder 15 Gm Bottle) 1 appl TOPICAL BID [facility]; Protocol Last Admin: 04/20/23 08:31 Dose: 1 appl Documented By: ROBERT Pharmacy Consult (Consult Rx Vancomycin Dosing) 1 each MISCELLANE DAILY PRN PRN Reason: Consult order Pharmacy Consult (Consult Rx Parenteral Nutrition Ordering) 1 each MISCELLANE DAILY PRN PRN Reason: Consult order Sertraline HCl (Sertraline Hcl 25 Mg Tablet) 25 mg PO DAILY [facility] Last Admin: 04/20/23 08:31 Dose: Not Given Documented By: ROBERT Non-Admin Reason: NPO Sodium Chloride (0.9 % Sodium Chloride Flush 3 Ml Syringe) 3 ml IVFLUSH QSHIFT [facility] Last Admin: 04/20/23 16:58 Dose: 3 ml Documented By: ROBERT Labs 04/10/23 09:33 04/21/23 05:53 Labs: Laboratory Results - last 24 hr 04/19/23 04/19/23 04/19/23 18:13 21:12 23:36 Hold Purple Top Anion Gap Estim Creat Clear Calc Estimated GFR POC Glucose 139 H 102 Random Glucose Calcium Phosphorus Magnesium Total Bilirubin AST ALT Alkaline Phosphatase Total Protein Albumin Triglycerides Random Vancomycin 17.9 04/20/23 04/20/23 04/20/23 05:59 05:59 06:54 Hold Purple Top SEE NOTE Anion Gap 15 Estim Creat Clear Calc 88.9 Estimated GFR > 60 POC Glucose 97 Random Glucose 102 Calcium 8.8 Phosphorus 4.0 Magnesium 2.3 Total Bilirubin 0.2 AST 32 ALT 13 Alkaline Phosphatase 36 L Total Protein 7.3 Albumin Cancelled 2.5 L Triglycerides 135 Random Vancomycin 04/20/23 11:09 Hold Purple Top Anion Gap Estim Creat Clear Calc Estimated GFR POC Glucose 110 Random Glucose Calcium Phosphorus Magnesium Total Bilirubin AST ALT Alkaline Phosphatase Total Protein Albumin Triglycerides Random Vancomycin Assessment and Plan (1) COVID-19: Status: Acute (2) Hypoxia: Status: Acute Assessment and Plan: 72 year old male with history of cognitive and neurobehavior dysfunction, seizure desorder here with acute hypoxic resp failure, aspiration pneumonitis and Covid New issues 04/20 : hypernatremia : possible due to dehydration added d5w ,moniter bmp 04/10 Fever, tachycardia, low O2.. Sepsis w/u with CXR (negative, UA negative , Blood culture, CBC WNL, lactic acid normal). O2 sat on lower side Concern of aspiration again, added empric Zosyn on 04/10, supplemental O2 as needed 04/12 Blood culture 04/10, 1/2 Bacilus species, likely contamination, stop Vanco 04/12 speech recommens NPO again. Continue TPN April 23, court hearing to address goals of care Old issues Acute hypoxic respiratory failure due to covid-- hypoxia resolved, on RA 95%, repeat covid if negative, stop isolation Sepsis due to aspiration pneumonia--completed 7 days of Zosyn Metabolic Encephalopathy due to acute illness and underlying cognitive disorder, appear to be at baseline Hypernatremia resolved HypOkalemia--correct in PPN Dysphagiia. He has been on parenteral nutrition IV PPN started on (03/27/23) due dyspahagia and failed multiple swallow evals but did ok with Puree on 04/08. Will stop PPN if able to take in enough calory over the weekend. Guardian would not want a PEG. Speech to reassess tomorrow hypOkalemia : repleted and resolved mild bradycardia : resolved ,atenolol restarted, stable vitals hypothyroidism- tsh elevated ,Free t4-normal, continue levothyroxine iv Pressure (decubitus) ulcer/injury coccyx Stage 2: continue position change, IV PPN and other recommendation per wound nurse, debridment defered by guardian pending court hearing Seizure disorder on IV Depakote until able to take PO atypical depressive disorder/ Neuro Behavioral dysfunction continue home medications patient is resident of [facility] and has a guardian--Spoke to guardian Stephanie Elliottault [phone] about treatment plan, code status to be reconsider to DNR by court--try to update today 04/03 no answer. DVT prophylaxis: Heparin Full code, guardian is filling court docuement to have status change to DNR/DNI. Also pending Placement. ongoing hospitlization need:treatement of sepsis due to pneuomina, on IV PPN due to dysphagia. Time Spent With Patient Time: Total time managing care of this patient today ____ minutes. Quality Stroke Does the patient have a stroke diagnosis?: No VTE Prior VTE?: No VTE Risk Level:: Medical - moderate - high VTE Device Contraindication: Treatment Not Indicated VTE Drug Contraindication: N/A - Med Ordered
[2023-04-20 17:27] LABS: Glucose, Whole Blood 64 mg/dL (60-115)
[2023-04-20] MEDS: Dextrose 50 % 25 GM/50 ML SYRINGE IVPUSH (17:27)
[2023-04-20 17:59] LABS: Glucose, Whole Blood 175 mg/dL (60-115)
[2023-04-20 18:43] LABS: Sodium 149 mmol/L (135-145)
[2023-04-20] MEDS: Parenteral Nutrition 1,800 ML 75 ML IV (19:28)
[2023-04-20] MEDS: Dextrose 5 % 1,000 ML 60 ML IVCONT (19:28)
[2023-04-20 19:38] VITALS: BP 133/85; PULSE 109; RESP 18; TEMP 37; O2SAT 92
[2023-04-20 23:13] VITALS: BP 142/63; PULSE 112; RESP 24; TEMP 36.2; O2SAT 94
[2023-04-20 23:39] LABS: Glucose, Whole Blood 130 mg/dL (60-115)
[2023-04-21] VITALS (7 sets, daily range): BP systolic 123–155; BP diastolic 61–86; PULSE 74–109; RESP 18–22; TEMP 36.1–38.7; O2SAT 90–94
[2023-04-21] MEDS: Heparin Sodium,Porcine 5,000 UNIT/ML VIAL 5000 UNIT SUBCUT ×4 (01:12→23:23)
[2023-04-21] MEDS: Acetaminophen Supp 650 MG SUPP.RECT PR (03:49)
[2023-04-21 06:02] LABS: Glucose, Whole Blood 147 mg/dL (60-115)
[2023-04-21] MEDS: Levothyroxine Sodium 100 MCG/5 ML VIAL 12.5 MCG IVPUSH (06:26)
[2023-04-21 07:16] LABS: Alanine Aminotransferase 9 U/L (0-40); Albumin Level 2.5 g/dL (3.5-5.0); Alkaline Phosphatase 38 U/L (39-117); Anion Gap 14 (12-20); Aspartate Amino Transferase 24 U/L (5-37); Bilirubin Total 0.2 mg/dL (0.0-1.0); Blood Urea Nitrogen 12 mg/dL (9-16); Carbon Dioxide 25 mmol/L (22-29); Chloride 115 mmol/L (96-108); Estimated Glomerular Filt Rate > 60; Glucose Random 167 mg/dL (60-115); Magnesium 2.5 mg/dL (1.6-2.6); Phosphorus 4.8 mg/dL (2.7-4.5); Potassium 3.5 mmol/L (3.3-5.1); Sodium 150 mmol/L (135-145); Total Protein 7.8 g/dL (6.5-8.0); Triglycerides 196 mg/dL (<150)
[2023-04-21] MEDS: atenoloL 25 MG TABLET PO (09:23)
[2023-04-21] MEDS: Memantine HCl 5 MG TABLET PO (09:23)
[2023-04-21] MEDS: Valproic Acid (as Sodium Salt) 500 MG in Dextrose 5 % 50 ML 55 MG IV ×2 (09:23→20:21)
[2023-04-21] MEDS: Sertraline HCL 25 MG TABLET PO (09:23)
[2023-04-21] MEDS: Collagenase Clostridium Hist. 30 GM TUBE 1 APPL TOPICAL (09:24)
[2023-04-21] MEDS: 0.9 % Sodium Chloride Flush 3 ML SYRINGE IVFLUSH ×2 (09:24→20:21)
[2023-04-21] MEDS: Nystatin Powder 15 GM BOTTLE 1 APPL TOPICAL ×2 (09:24→21:35)
[2023-04-21] MEDS: Dextrose 5 % 1,000 ML 70 ML IVCONT (10:58)
--- NOTE | 2023-04-21 10:58 | MHC.CLN ---
F/U REVIEWED LABS NOTED ELEVATED SERUM NA PT DID NOT RECEIVE TPN YESTERDAY DISCUSSED WITH PHARMACY CONTINUE PPN AT MAX GOAL RATE 75ML/HR PROVIDES 1848 TOTAL KCALS FROM FORMULA AND LIPIDS (28KCALS/KG), 77G PROTEIN (1.2G/KG), 180G DEXTROSE WITH 93G LIPIDS (1.4G/KG) REPLETE LYTES NEEDED
[2023-04-21 11:20] LABS: Glucose, Whole Blood 185 mg/dL (60-115)
--- NOTE | 2023-04-21 12:49 | MHC.SL.SWA ---
Speech Pathologist Impression: Oral phase dysphagia Risk of Aspiration Due to: Neurological Condition Reduced Cognition Dysphasia Diet Status: Recommend continue strict NPO at this time with PO trials with INSURANCE AGENTS SUPERVISOR. Provide frequent oral care for comfort/hygeine. Liquid Consistency and Strategies for Safe Swallow: Liquid Intake Recommendation: NPO Solid Food Consistency: Dietary Recommendations: NPO Oral Medication Intake: NPO Please contact the pharmacy regarding appropriate crushable or liquid drug formulations that are available whenever modified delivery is recommended. Compensatory Strategies and Precautions to be Taken for Safe Swallow: Sitting Upright (90 deg) Supervision While Eating and Drinking for Safe Swallow: PO with INSURANCE AGENTS SUPERVISOR Swallowing Recommended Treatments: Compens. Strategy Educat. Recommendation for Speech: Inpatient Speech Therapy Per RN, patient given very small pills whole in applesauce this AM which patient reportedly swallowed after long delay. RN reportedly swabbed patient following swallow and removed minimal applesauce. Pt seen at bedside this morning w/ RN present. Observed to swallow independently prior to any PO trials w/ INSURANCE AGENTS SUPERVISOR. Patient positioned leaning to left side upon arrival. RN repositioned patient upright. Once upright, observed visible milky/thick white/yellow consistency escaping from left side of mouth upon INSURANCE AGENTS SUPERVISOR arrival; likely applesauce residual from AM pills mixed w/ mouthwash and secretions however d/t observed color and consistency also possible regurgitation of TPN? Swallow likely minimally effective or ineffective due to observed residual. Pt first provided oral care by INSURANCE AGENTS SUPERVISOR. Pt then accepted 1 teaspoon applesauce w/ INSURANCE AGENTS SUPERVISOR; did not swallow after several minutes. Patient encouraged to swallow or spit out bolus; provided cup to spit into. INSURANCE AGENTS SUPERVISOR manually removed bolus from pt's mouth w/ swab following several minutes. Patient again provided oral care. Presenting w/ similar color and consistency of content escaping from left side of mouth as when INSURANCE AGENTS SUPERVISOR arrived. INSURANCE AGENTS SUPERVISOR swabbed patient again to remove any remaining residual/secretions. Patient observed to have gag reflex present when swab entered posterior oral cavity. Patient did not produce any verbal output during visit. Patient did not appear to respond to Y/N questions w/ any body language (i.e. head movement). Recommend strict NPO w/ frequent oral care. Aspiration precautions apply. INSURANCE AGENTS SUPERVISOR to continue to follow. Frequency/Duration: M-F while inpatient. Product Development Intern Clinican/Clinical Fellow: No Supervisory Statement: I have reviewed and agree with the student/clinical fellow's documentation: N/A Speech Language Pathologist: Manisha Skaggs M.A., [facility]-INSURANCE AGENTS SUPERVISOR
--- NOTE | 2023-04-21 12:49 | MHC.CM.PN ---
EMR REVIEWED, CM CONTACTED PT'S GUARDIAN VINCENT AT NUMBER ON FILE AT 12:30PM TO REVIEW BED OFFERS, MARI REPORTS SHE PREFERS [facility] AND THEN REPORTED SHE THOUGHT PT'S COURT DATE FOR EXPANSION OF GUARDIANSHIP WAS POSTPONED UNTIL 05/05, CM DIRECTOR NOTIFIED AND CONFIRMED COURT DATE IS STILL SCHEDULED FOR THIS MONDAY 04/23 AT 12PM, CM CONTACTED GUARDIAN VINCENT AT 12:[address] TO LET [address] KNOW [address] DATE WAS STILL ON SCHEDULE FOR 04/23 AT 12PM, CM UNABLE TO ASK FURTHER QUESTIONS VINCENT ENDED CALL SOON CM TOLD HER DTE AND TIME. [facility] UPDATED VIA [employer].
[2023-04-21] MEDS: Insulin Lispro 100 UNIT/ML 3 ML VIAL SUBCUT (13:40)
--- NOTE | 2023-04-21 15:54 | P.PNIM_ITS ---
Subjective Subjective Date of Service: 04/22/23 Interval History: hypernatremia Review of Systems mild hypernatremia other no new events Physical Exam 2 Vital Signs: Vital Signs: Last Vital Signs Temp 98.0 F 04/21/23 15:24 Pulse 95 04/21/23 15:24 Resp 20 04/21/23 15:24 BP 123/61 04/21/23 15:24 Pulse Ox 90 L 04/21/23 15:24 O2 Del Method Room Air 04/21/23 15:24 O2 Flow Rate 1 04/18/23 03:17 FiO2 94 04/16/23 23:50 Oxygen Flow Rate 4 03/25/23 00:10 BMI result Body Mass Index 22.1 General awake alert, but not conversing Neck supple no JVD. CVS regular rate rhythm,[id number] Respiratory lungs clear to auscultation, few rhonchi, no respiratory distress, no wheeze. Gastrointestinal abdomen soft, non tender, bowel sounds audible, no guarding or rigidity. Extremities no edema Neuro nonfocal ,speech clear, verbalized minimally. Skin decub ulcer--see picture for decub ulcer Objective Data Active Medications Acetaminophen (Acetaminophen Supp 650 Mg Supp.Rect) 650 mg MA Q6H PRN PRN Reason: Fever Last Admin: 04/21/23 03:49 Dose: 650 mg Documented By: CED Acetaminophen (Acetaminophen Supp 650 Mg Supp.Rect) 650 mg MA Q6H PRN PRN Reason: Pain, Mild (Pain Scale 1-3) Last Admin: 04/12/23 20:51 Dose: 650 mg Documented By: NITO Atenolol (Atenolol 25 Mg Tablet) 25 mg PO DAILY [facility]; Protocol Last Admin: 04/21/23 09:23 Dose: 25 mg Documented By: GARCÍA Atorvastatin Calcium (Atorvastatin Calcium 10 Mg Tablet) 10 mg PO DAILY [facility] Last Admin: 03/26/23 08:44 Dose: 10 mg Documented By: ROBERT Collagenase (Collagenase Clostridium Hist. 30 Gm Tube) 1 appl TOPICAL DAILY [facility]; Protocol Last Admin: 04/21/23 09:24 Dose: 1 appl Documented By: GARCÍA Dextrose (Dextrose 50 % 25 Gm/50 Ml Syringe) 25 gm IVPUSH Q15M PRN; Protocol PRN Reason: per Hypoglycemia Standing Ord. Last Admin: 04/06/23 23:22 Dose: 25 gm Glucose (Glucose Gel 15 Gm Gel..Gram.) 15 gm PO Q15M PRN; Protocol PRN Reason: per Hypoglycemia Standing Ord. Guaifenesin (Guaifenesin 200 Mg/10 Ml 10 Ml Liquid) 10 ml PO Q4H PRN PRN Reason: Cough Last Admin: 03/28/23 09:25 Dose: 10 ml Documented By: ROBERT Heparin Sodium (Porcine) (Heparin Sodium,Porcine 5,000 Unit/Ml Vial) 5,000 unit SUBCUT Q8H [facility] Last Admin: 04/21/23 09:23 Dose: 5,000 unit Documented By: GARCÍA Hydroxyzine HCl (Hydroxyzine Hcl 25 Mg Tablet) 25 mg PO BEDTIME PRN PRN Reason: Itching Valproic Acid 500 mg/ Dextrose 55 mls @ 55 mls/hr IV Q12H [facility] Last Infusion: 04/21/23 10:59 Dose: Infused Documented By: GARCÍA Nutrition (Parenteral) (Parenteral Nutrition) 1,800 mls @ 75 mls/hr IV .Q24H [facility]; Protocol Stop: 04/21/23 20:59 Last Admin: 04/20/23 19:28 Dose: 75 mls/hr Documented By: ROBERT Nutrition (Parenteral) (Parenteral Nutrition) 1,800 mls @ 75 mls/hr IV .Q24H [facility]; Protocol Stop: 04/22/23 20:59 Insulin Human Lispro (Insulin Lispro 100 Unit/Ml 3 Ml Vial) 0 unit SUBCUT Q6H [facility]; Protocol Last Admin: 04/21/23 13:40 Dose: 2 unit Documented By: GARCÍA Levothyroxine Sodium (Levothyroxine Sodium 100 Mcg/5 Ml Vial) 12.5 mcg IVPUSH DAILY@0600 [facility] Last Admin: 04/21/23 06:26 Dose: 12.5 mcg Documented By: CED Memantine (Memantine Hcl 5 Mg Tablet) 5 mg PO DAILY [facility] Last Admin: 04/21/23 09:23 Dose: 5 mg Documented By: GARCÍA Mirtazapine (Mirtazapine 30 Mg Tablet) 30 mg PO BEDTIME [facility] Last Admin: 04/20/23 22:33 Dose: Not Given Documented By: CED Non-Admin Reason: NPO Nystatin (Nystatin Powder 15 Gm Bottle) 1 appl TOPICAL BID [facility]; Protocol Last Admin: 04/21/23 09:24 Dose: 1 appl Documented By: GARCÍA Pharmacy Consult (Consult Rx Parenteral Nutrition Ordering) 1 each MISCELLANE DAILY PRN PRN Reason: Consult order Sertraline HCl (Sertraline Hcl 25 Mg Tablet) 25 mg PO DAILY [facility] Last Admin: 04/21/23 09:23 Dose: 25 mg Documented By: GARCÍA Sodium Chloride (0.9 % Sodium Chloride Flush 3 Ml Syringe) 3 ml IVFLUSH QSHIFT [facility] Last Admin: 04/21/23 09:24 Dose: 3 ml Documented By: GARCÍA Labs 04/10/23 09:33 04/22/23 06:51 Labs: Laboratory Results - last 24 hr 04/20/23 04/20/23 04/20/23 17:21 17:55 20:52 Hold Purple Top Anion Gap Estim Creat Clear Calc Estimated GFR POC Glucose 64 175 H Random Glucose Calcium Phosphorus Magnesium Total Bilirubin AST ALT Alkaline Phosphatase Total Protein Albumin Triglycerides Random Vancomycin 27.0 H* 04/20/23 04/21/23 04/21/23 23:34 05:53 05:57 Hold Purple Top SEE NOTE Anion Gap 14 Estim Creat Clear Calc 74.0 Estimated GFR > 60 POC Glucose 130 H 147 H Random Glucose 167 H Calcium 9.0 Phosphorus 4.8 H Magnesium 2.5 Total Bilirubin 0.2 AST 24 ALT 9 Alkaline Phosphatase 38 L Total Protein 7.8 Albumin 2.5 L Triglycerides 196 H Random Vancomycin 04/21/23 11:14 Hold Purple Top Anion Gap Estim Creat Clear Calc Estimated GFR POC Glucose 185 H Random Glucose Calcium Phosphorus Magnesium Total Bilirubin AST ALT Alkaline Phosphatase Total Protein Albumin Triglycerides Random Vancomycin Assessment and Plan (1) COVID-19: Status: Acute (2) Hypoxia: Status: Acute Assessment and Plan: 72 year old male with history of cognitive and neurobehavior dysfunction, seizure desorder here with acute hypoxic resp failure, aspiration pneumonitis and Covid New issues 04/20 : hypernatremia : possible due to dehydration added d5w ,moniter bmp 04/10 Fever, tachycardia, low O2.. Sepsis w/u with CXR (negative, UA negative , Blood culture, CBC WNL, lactic acid normal). O2 sat on lower side Concern of aspiration again, added empric Zosyn on 04/10, supplemental O2 as needed 04/12 Blood culture 04/10, 1/2 Bacilus species, likely contamination, stop Vanco 04/12 speech recommens NPO again. Continue TPN April 23, court hearing to address goals of care Old issues Acute hypoxic respiratory failure due to covid-- hypoxia resolved, on RA 95%, repeat covid if negative, stop isolation Sepsis due to aspiration pneumonia--completed 7 days of Zosyn Metabolic Encephalopathy due to acute illness and underlying cognitive disorder, appear to be at baseline Hypernatremia resolved HypOkalemia--correct in PPN Dysphagiia. He has been on parenteral nutrition IV PPN started on (03/27/23) due dyspahagia and failed multiple swallow evals but did ok with Puree on 04/08. Will stop PPN if able to take in enough calory over the weekend. Guardian would not want a PEG. Speech to reassess tomorrow hypOkalemia : repleted and resolved mild bradycardia : resolved ,atenolol restarted, stable vitals hypothyroidism- tsh elevated ,Free t4-normal, continue levothyroxine iv Pressure (decubitus) ulcer/injury coccyx Stage 2: continue position change, IV PPN and other recommendation per wound nurse, debridment defered by guardian pending court hearing Seizure disorder on IV Depakote until able to take PO atypical depressive disorder/ Neuro Behavioral dysfunction continue home medications patient is resident of [facility] and has a guardian--Spoke to guardian Stephanie Singh [phone] about treatment plan, code status to be reconsider to DNR by court--try to update today 04/03 no answer. DVT prophylaxis: Heparin Full code, guardian is filling court docuement to have status change to DNR/DNI. Also pending Placement. ongoing hospitlization need:treatement of sepsis due to pneuomina, on IV PPN due to dysphagia. Quality Stroke Does the patient have a stroke diagnosis?: No VTE Prior VTE?: No VTE Risk Level:: Medical - moderate - high VTE Device Contraindication: Treatment Not Indicated VTE Drug Contraindication: N/A - Med Ordered
[2023-04-21 18:33] LABS: Glucose, Whole Blood 131 mg/dL (60-115)
[2023-04-21] MEDS: Parenteral Nutrition 1,800 ML 75 ML IV (20:20)
[2023-04-21] MEDS: Dextrose 5 % 1,000 ML 50 ML IVCONT (21:35)
[2023-04-21 23:09] LABS: Glucose, Whole Blood 148 mg/dL (60-115)
[2023-04-22 03:18] VITALS: BP 132/69; PULSE 86; RESP 20; TEMP 36.4; O2SAT 95
[2023-04-22 06:14] LABS: Glucose, Whole Blood 141 mg/dL (60-115)
[2023-04-22] MEDS: Levothyroxine Sodium 100 MCG/5 ML VIAL 12.5 MCG IVPUSH (06:21)
[2023-04-22 07:21] LABS: Alanine Aminotransferase 10 U/L (0-40); Albumin Level 2.6 g/dL (3.5-5.0); Alkaline Phosphatase 38 U/L (39-117); Anion Gap 14 (12-20); Aspartate Amino Transferase 19 U/L (5-37); Bilirubin Total 0.3 mg/dL (0.0-1.0); Blood Urea Nitrogen 18 mg/dL (9-16); Calcium 9.6 mg/dL (8.4-10.2); Carbon Dioxide 25 mmol/L (22-29); Chloride 116 mmol/L (96-108); Creatinine Clr Calc Pharmacy 69.1; Estimated Glomerular Filt Rate > 60; Glucose Random 162 mg/dL (60-115); Phosphorus 4.7 mg/dL (2.7-4.5); Potassium 4.2 mmol/L (3.3-5.1); Sodium 151 mmol/L (135-145); Triglycerides 144 mg/dL (<150)
[2023-04-22 08:00] VITALS: BP 133/70; PULSE 89; RESP 16; TEMP 36.9; O2SAT 92
[2023-04-22] MEDS: Collagenase Clostridium Hist. 30 GM TUBE 1 APPL TOPICAL (11:27)
[2023-04-22] MEDS: Heparin Sodium,Porcine 5,000 UNIT/ML VIAL 5000 UNIT SUBCUT ×3 (11:27→23:47)
[2023-04-22] MEDS: Valproic Acid (as Sodium Salt) 500 MG in Dextrose 5 % 50 ML 55 MG IV ×2 (11:27→20:38)
[2023-04-22] MEDS: Nystatin Powder 15 GM BOTTLE 1 APPL TOPICAL ×2 (11:28→20:38)
[2023-04-22 11:33] LABS: Glucose, Whole Blood 151 mg/dL (60-115)
[2023-04-22] MEDS: 0.9 % Sodium Chloride Flush 3 ML SYRINGE IVFLUSH ×3 (11:42→20:38)
[2023-04-22 12:00] VITALS: BP 156/70; PULSE 95; RESP 20; TEMP 37.6; O2SAT 93
[2023-04-22] MEDS: Albumin Human 25 % 100 ML IV ×3 (12:40→22:11)
--- NOTE | 2023-04-22 13:39 | MHC.CM.PN ---
EMR REVIEWED, [facility] UNABLE TO OFFER D/T NO LTC BED AVAILABLE, CM ATTEMPTED TO CONTACT PT'S GUARDIAN VINCENT AT 1:38PM TO UPDATE HER HOWEVER NO ANSWER, DETAILED MESSAGE LEFT INCLUDING [facility] WHO DID HAVE INTEREST AND REQUESTED CALL BACK, CM WILL CONT TO FOLLOW DC NEEDS. COURT FOR EXPANSION OF GUARDIANSHIP TOMORROW 04/23 AT 12PM.
--- NOTE | 2023-04-22 14:00 | P.PNNP_ITS ---
Subjective Subjective Date of Service: 04/22/23 Interval history: hypernatremia worse again--asked to resee hoim by hospitalist SNA 150 despite on TPN w adjustments Physical Exam 2 Vital Signs: Vital Signs: Last Vital Signs Temp 99.7 F 04/22/23 12:00 Pulse 95 04/22/23 12:00 Resp 20 04/22/23 12:00 BP 156/70 H 04/22/23 12:00 Pulse Ox 93 04/22/23 12:00 O2 Del Method Nasal Cannula 04/22/23 12:00 O2 Flow Rate 2 04/22/23 12:00 FiO2 94 04/16/23 23:50 Oxygen Flow Rate 4 03/25/23 00:10 BMI result Body Mass Index 22.1 Const: General: confusion Orientation/consciousness: confusion HEENT: Other: Dry MMs Resp: Effort & Inspection: normal respiratory effort Auscultation: clear to auscultation bilaterally GI: Palpation (GI): Soft to palpation Auscultation: normal bowel sounds Neuro: General: confusion Extrem: Other: No edema Objective Data Labs 04/10/23 09:33 04/22/23 06:51 Labs: Laboratory Results - last 24 hr 04/21/23 04/21/23 04/22/23 18:29 23:04 06:11 Hold Purple Top Sodium Potassium Chloride Carbon Dioxide Anion Gap BUN Creatinine Estim Creat Clear Calc Estimated GFR POC Glucose 131 H 148 H 141 H Random Glucose Calcium Phosphorus Magnesium Total Bilirubin AST ALT Alkaline Phosphatase Total Protein Albumin Triglycerides 04/22/23 04/22/23 04/22/23 06:51 07:01 11:28 Hold Purple Top SEE NOTE Sodium 151 H Potassium 4.2 Chloride 116 H Carbon Dioxide 25 Anion Gap 14 BUN 18 H Creatinine 0.90 Estim Creat Clear Calc 69.1 Estimated GFR > 60 POC Glucose 151 H Random Glucose 162 H Calcium 9.6 D Phosphorus 4.7 H Magnesium 3.0 H Total Bilirubin 0.3 AST 19 ALT 10 Alkaline Phosphatase 38 L Total Protein 8.0 Albumin 2.6 L Triglycerides 144 Microbiology Microbiology Results: Microbiology 04/12/23 22:51 Blood - Venous Blood Culture - Final No growth after 5 days. 04/12/23 22:51 Blood - Venous Blood Culture - Final Coag negative Staphylococcus 04/10/23 09:33 Blood - Venous Blood Culture - Final No growth after 5 days. 04/09/23 00:37 Blood - Venous Blood Culture - Final No growth after 5 days. 04/09/23 00:37 Blood - Venous Blood Culture - Final No growth after 5 days. 04/10/23 09:32 Blood - Venous Blood Culture - Final Bacillus species 03/24/23 19:36 Blood - Venous Blood Culture - Final No growth after 5 days. 03/24/23 19:36 Blood - Venous Blood Culture - Final No growth after 5 days. Procedures Date of Service Date of Service: 04/22/23 Assessment & Plan Assessment and plan (1) Aspiration into lower respiratory tract: Status: Acute (2) Hypoxia: Status: Acute (3) COVID-19: Status: Acute Plan Mr. Juan M White is a 72-year-old gentleman with past medical history of cognitive and neurobehavior dysfunction, seizure disorder who presented with acute hypoxic resp failure, aspiration pneumonitis and Covid. Course now complicated by Hypernatremia. 1. Hypernatremia - recurred despite on hypotonicTPN as noted suspect IWL and not DI given in past sg 1.032 --very concentrated REC: agree with starting IV D5W and tracking SNa; urine studeis as ordered; control BS to avoid osm diuresis from hyperglycemia Time Spent With Patient Time: Total time managing care of this patient today ____ minutes. Progress Note: Quality Stroke Does the patient have a stroke diagnosis?: No
[2023-04-22] MEDS: Furosemide 20 MG/2 ML VIAL IVPUSH (14:39)
--- NOTE | 2023-04-22 15:03 | MHC.CLN ---
F/U REVIEWED LABS NOTED ELEVATED SERUM NA-D5W IVF RUNNING DISCUSSED WITH PHARMACY CONTINUE PPN AT MAX GOAL RATE 75ML/HR PROVIDES 1848 TOTAL KCALS FROM FORMULA AND LIPIDS (28KCALS/KG), 77G PROTEIN (1.2G/KG), 180G DEXTROSE WITH 93G LIPIDS (1.4G/KG) REPLETE LYTES NEEDED
--- NOTE | 2023-04-22 15:40 | P.PNIM_ITS ---
Subjective Subjective Date of Service: 04/23/23 Interval History: hypernatremia ,desats Review of Systems mild hypernatremia similar Physical Exam 2 Vital Signs: Vital Signs: Last Vital Signs Temp 99.7 F 04/22/23 12:00 Pulse 95 04/22/23 12:00 Resp 20 04/22/23 12:00 BP 156/70 H 04/22/23 12:00 Pulse Ox 93 04/22/23 12:00 O2 Del Method Nasal Cannula 04/22/23 12:00 O2 Flow Rate 2 04/22/23 12:00 FiO2 94 04/16/23 23:50 Oxygen Flow Rate 4 03/25/23 00:10 BMI result Body Mass Index 22.1 General awake , but not conversing Neck supple no JVD. CVS regular rate rhythm,[id number] Respiratory lungs -air entry fair , no wheezing ,or ignificant rales , few scattered rhochii Gastrointestinal abdomen soft, non tender, bowel sounds audible, no guarding or rigidity. Extremities: no cyanosis ,trace edema Neuro nonfocal ,speech clear, verbalized minimally. Skin decub ulcer--see picture for decub ulcer Objective Data Active Medications Acetaminophen (Acetaminophen Supp 650 Mg Supp.Rect) 650 mg MA Q6H PRN PRN Reason: Fever Last Admin: 04/21/23 03:49 Dose: 650 mg Documented By: CED Acetaminophen (Acetaminophen Supp 650 Mg Supp.Rect) 650 mg MA Q6H PRN PRN Reason: Pain, Mild (Pain Scale 1-3) Last Admin: 04/12/23 20:51 Dose: 650 mg Documented By: NITO Atenolol (Atenolol 25 Mg Tablet) 25 mg PO DAILY [facility]; Protocol Last Admin: 04/22/23 11:25 Dose: Not Given Documented By: IDALIA Non-Admin Reason: NPO Atorvastatin Calcium (Atorvastatin Calcium 10 Mg Tablet) 10 mg PO DAILY [facility] Last Admin: 03/26/23 08:44 Dose: 10 mg Documented By: ROBERT Collagenase (Collagenase Clostridium Hist. 30 Gm Tube) 1 appl TOPICAL DAILY [facility]; Protocol Last Admin: 04/22/23 11:27 Dose: 1 appl Documented By: IDALIA Dextrose (Dextrose 50 % 25 Gm/50 Ml Syringe) 25 gm IVPUSH Q15M PRN; Protocol PRN Reason: per Hypoglycemia Standing Ord. Last Admin: 04/06/23 23:22 Dose: 25 gm Glucose (Glucose Gel 15 Gm Gel..Gram.) 15 gm PO Q15M PRN; Protocol PRN Reason: per Hypoglycemia Standing Ord. Guaifenesin (Guaifenesin 200 Mg/10 Ml 10 Ml Liquid) 10 ml PO Q4H PRN PRN Reason: Cough Last Admin: 03/28/23 09:25 Dose: 10 ml Documented By: ROBERT Heparin Sodium (Porcine) (Heparin Sodium,Porcine 5,000 Unit/Ml Vial) 5,000 unit SUBCUT Q8H [facility] Last Admin: 04/22/23 14:38 Dose: 5,000 unit Documented By: GARCÍA Hydroxyzine HCl (Hydroxyzine Hcl 25 Mg Tablet) 25 mg PO BEDTIME PRN PRN Reason: Itching Valproic Acid 500 mg/ Dextrose 55 mls @ 55 mls/hr IV Q12H [facility] Last Infusion: 04/22/23 12:40 Dose: Infused Documented By: GARCÍA Nutrition (Parenteral) (Parenteral Nutrition) 1,800 mls @ 75 mls/hr IV .Q24H [facility]; Protocol Stop: 04/22/23 20:59 Last Admin: 04/21/23 20:20 Dose: 75 mls/hr Documented By: DEMI Dextrose (D5w) 1,000 mls @ 70 mls/hr IVCONT .[id number] [facility] Last Admin: 04/21/23 21:35 Dose: 50 mls/hr Documented By: DEMI Nutrition (Parenteral) (Parenteral Nutrition) 1,800 mls @ 75 mls/hr IV .Q24H [facility]; Protocol Stop: 04/23/23 20:59 Insulin Human Lispro (Insulin Lispro 100 Unit/Ml 3 Ml Vial) 0 unit SUBCUT Q6H [facility]; Protocol Last Admin: 04/22/23 11:25 Dose: Not Given Documented By: IDALIA Non-Admin Reason: NPO Levothyroxine Sodium (Levothyroxine Sodium 100 Mcg/5 Ml Vial) 12.5 mcg IVPUSH DAILY@0600 [facility] Last Admin: 04/22/23 06:21 Dose: 12.5 mcg Documented By: DEMI Memantine (Memantine Hcl 5 Mg Tablet) 5 mg PO DAILY [facility] Last Admin: 04/22/23 11:25 Dose: Not Given Documented By: IDALIA Non-Admin Reason: NPO Mirtazapine (Mirtazapine 30 Mg Tablet) 30 mg PO BEDTIME [facility] Last Admin: 04/21/23 20:18 Dose: Not Given Documented By: DEMI Non-Admin Reason: NPO Nystatin (Nystatin Powder 15 Gm Bottle) 1 appl TOPICAL BID [facility]; Protocol Last Admin: 04/22/23 11:28 Dose: 1 appl Documented By: IDALIA Sertraline HCl (Sertraline Hcl 25 Mg Tablet) 25 mg PO DAILY [facility] Last Admin: 04/22/23 11:25 Dose: Not Given Documented By: IDALIA Non-Admin Reason: NPO Sodium Chloride (0.9 % Sodium Chloride Flush 3 Ml Syringe) 3 ml IVFLUSH QSHIFT [facility] Last Admin: 04/22/23 14:39 Dose: 3 ml Documented By: GARCÍA Labs 04/10/23 09:33 04/23/23 06:26 Labs: Laboratory Results - last 24 hr 04/21/23 04/21/23 04/22/23 18:29 23:04 06:11 Hold Purple Top Anion Gap Estim Creat Clear Calc Estimated GFR POC Glucose 131 H 148 H 141 H Random Glucose Calcium Phosphorus Magnesium Total Bilirubin AST ALT Alkaline Phosphatase Total Protein Albumin Triglycerides 04/22/23 04/22/23 04/22/23 06:51 07:01 11:28 Hold Purple Top SEE NOTE Anion Gap 14 Estim Creat Clear Calc 69.1 Estimated GFR > 60 POC Glucose 151 H Random Glucose 162 H Calcium 9.6 D Phosphorus 4.7 H Magnesium 3.0 H Total Bilirubin 0.3 AST 19 ALT 10 Alkaline Phosphatase 38 L Total Protein 8.0 Albumin 2.6 L Triglycerides 144 Assessment and Plan (1) Hypernatremia: Status: Acute Plan New issue; 04/20 : hypernatremia : possible due to dehydration continue d5w ,moniter bmp 04/10 Fever, tachycardia, low O2.. Sepsis w/u with CXR (negative, UA negative , Blood culture, CBC WNL, lactic acid normal). O2 sat on lower side Concern of aspiration again, added empric Zosyn on 04/10, supplemental O2 as needed 04/12 Blood culture 04/10, 1/2 Bacilus species, likely contamination, stop Vanco 04/12 speech recommens NPO again. Continue TPN. April 23, court hearing to address goals of care Old issues Acute hypoxic respiratory failure due to covid-- hypoxia resolved, repeat covid if negative, stop isolation sats fine in 92% Sepsis due to aspiration pneumonia--completed 7 days of Zosyn Metabolic Encephalopathy due to acute illness and underlying cognitive disorder, appear to be at baseline. Hypernatremia resolved HypOkalemia--correct in PPN Dysphagiia. He has been on parenteral nutrition IV PPN started on (03/27/23) due dyspahagia and failed multiple swallow evals but did ok with Puree on 04/08. Will stop PPN if able to take in enough calory over the weekend. Guardian would not want a PEG. Speech still recomend still npo. hypOkalemia : repleted and resolved mild bradycardia : resolved ,atenolol restarted, stable vitals hypothyroidism- tsh elevated ,Free t4-normal, continue levothyroxine iv Pressure (decubitus) ulcer/injury coccyx Stage 2: continue position change, IV PPN and other recommendation per wound nurse, debridment defered by guardian pending court hearing Seizure disorder on IV Depakote until able to take PO atypical depressive disorder/ Neuro Behavioral dysfunction continue home medications patient is resident [facility] and has a guardian--Spoke to guardian Stephanie Singh [phone] about treatment plan, code status to be reconsider to DNR by court. DVT prophylaxis: Heparin Full code, guardian is filling court docuement to have status change to DNR/DNI. Also pending Placement. ongoing hospitlization need:treatement of sepsis due to pneuomina, on IV PPN due to dysphagia. Quality Stroke Does the patient have a stroke diagnosis?: No VTE Prior VTE?: No VTE Risk Level:: Medical - moderate - high VTE Device Contraindication: Treatment Not Indicated VTE Drug Contraindication: N/A - Med Ordered
[2023-04-22 16:00] VITALS: BP 133/80; PULSE 95; RESP 20; TEMP 36.1; O2SAT 92
[2023-04-22 18:12] LABS: Glucose, Whole Blood 128 mg/dL (60-115)
[2023-04-22 20:00] VITALS: BP 147/72; PULSE 103; RESP 18; TEMP 36.8; O2SAT 93
[2023-04-22] MEDS: Parenteral Nutrition 1,800 ML 75 ML IV (20:37)
[2023-04-22 23:32] VITALS: BP 141/79; PULSE 103; RESP 18; TEMP 37; O2SAT 93
[2023-04-22 23:38] LABS: Glucose, Whole Blood 114 mg/dL (60-115)
[2023-04-23 04:00] VITALS: BP 152/84; PULSE 78; RESP 22; TEMP 35.9; O2SAT 94
[2023-04-23] MEDS: Albumin Human 25 % 100 ML IV ×2 (04:32→10:53)
[2023-04-23] MEDS: Levothyroxine Sodium 100 MCG/5 ML VIAL 12.5 MCG IVPUSH (05:40)
[2023-04-23 06:48] LABS: Glucose, Whole Blood 134 mg/dL (60-115)
[2023-04-23 07:10] LABS: Alanine Aminotransferase 8 U/L (0-40); Albumin Level 3.6 g/dL (3.5-5.0); Alkaline Phosphatase 38 U/L (39-117); Anion Gap 15 (12-20); Aspartate Amino Transferase 24 U/L (5-37); Bilirubin Total 0.4 mg/dL (0.0-1.0); Blood Urea Nitrogen 26 mg/dL (9-16); Calcium 9.8 mg/dL (8.4-10.2); Carbon Dioxide 26 mmol/L (22-29); Chloride 117 mmol/L (96-108); Creatinine Clr Calc Pharmacy 58.1; Estimated Glomerular Filt Rate > 60; Glucose Random 143 mg/dL (60-115); Magnesium 2.8 mg/dL (1.6-2.6); Phosphorus 4.1 mg/dL (2.7-4.5); Potassium 4.3 mmol/L (3.3-5.1); Sodium 154 mmol/L (135-145); Total Protein 8.9 g/dL (6.5-8.0); Triglycerides 194 mg/dL (<150)
[2023-04-23 07:34] VITALS: BP 142/79; PULSE 100; RESP 18; TEMP 36.6; O2SAT 90
[2023-04-23] MEDS: Heparin Sodium,Porcine 5,000 UNIT/ML VIAL 5000 UNIT SUBCUT ×3 (08:42→22:57)
[2023-04-23] MEDS: Valproic Acid (as Sodium Salt) 500 MG in Dextrose 5 % 50 ML 55 MG IV ×2 (08:43→22:12)
[2023-04-23] MEDS: Collagenase Clostridium Hist. 30 GM TUBE 1 APPL TOPICAL (08:43)
[2023-04-23] MEDS: Nystatin Powder 15 GM BOTTLE 1 APPL TOPICAL ×2 (08:43→22:13)
--- NOTE | 2023-04-23 10:46 | MHC.CLN ---
F/U REVIEWED LABS. DISCUSSED WITH PHARMACY. ITARP=[phone], CONTINUE TO MONITOR. PATIENT WITH MIDLINE ACCESS. CONTINUE PPN AT MAX GOAL RATE 75ML/HR PROVIDES 1848 TOTAL KCALS FROM FORMULA AND LIPIDS (28KCALS/KG), 77G PROTEIN (1.2G/KG), 180G DEXTROSE WITH 93G LIPIDS (1.4G/KG) REPLETE LYTES NEEDED.
[2023-04-23] MEDS: Dextrose 5 % 1,000 ML 50 ML IVCONT (11:40)
[2023-04-23 11:41] LABS: Glucose, Whole Blood 110 mg/dL (60-115)
[2023-04-23 12:00] VITALS: BP 132/72; PULSE 97; RESP 19; TEMP 36.6; O2SAT 95
--- NOTE | 2023-04-23 13:23 | MHC.SL.SWA ---
Speech Pathologist Impression: Risk of aspiration, oropharyngeal dysphagia Risk of Aspiration Due to: Neurological Condition Reduced Cognition Dysphasia Diet Status: Recommend continue strict NPO at this time with PO trials with BOAT PERSON. Provide frequent oral care for comfort/hygeine. Liquid Consistency and Strategies for Safe Swallow: Liquid Intake Recommendation: NPO Solid Food Consistency: Dietary Recommendations: NPO Oral Medication Intake: NPO Please contact the pharmacy regarding appropriate crushable or liquid drug formulations that are available whenever modified delivery is recommended. Supervision While Eating and Drinking for Safe Swallow: PO with BOAT PERSON Swallowing Recommended Treatments: Compens. Strategy Educat. Recommendation for Speech: Inpatient Speech Therapy [ End ] Frequency/Duration: M-F while inpatient. Date Range for Service Req: Timeline to reassess: Traffic Lieutenant Clinican/Clinical Fellow: No Supervisory Statement: I have reviewed and agree with the student/clinical fellow's documentation: N/A Speech Language Pathologist: Allyssa Nolasco M.A., CCC-BOAT PERSON
--- NOTE | 2023-04-23 14:37 | HO.WOUND ---
Wound Consult: Follow Up 72yr old male admitted to [facility] on 03/24/23 23:35 - See progress notes and H&P for detailed history. Wound beds continue to declare with use of Santyl - Surgery was consulted for debridement - they defer at this time pending goals of care meeting in legal system. 04/15/23 Assessment 04/23/23 Assessment Right Sacrum Etiology: Unstageable Pressure Injury Present on Admission Measurements: 3.3cm x 2.2cm x 2.5cm - continuing to declare itself Wound Bed: Moist fibrinous necrotic hines chaudhari slough Drainage / Odor: Green chaudhari moderate mild odor drainage - suspect Psuedomonas Edges: unattached Bharati wound: ?Intact red hyperpigmented tissue slow to jolynn throughout - Fungal Dermatitis and MASD noted - periwound is improving when photo reviewed No induration no fluctuance noted - no s/s of active infection at this time Goals of Treatment: ?Off Load Pressure and Dakins packing for autolytic debridement and antimicrobial properties Left Sacrum Etiology: Unstageable Pressure Injury Measurements: 2cm x 3cm x 0.3cm - continuing to declare itself Wound Bed: Leather like necrotic brown black eschar Drainage / Odor: Green chaudhari moderate mild odor drainage - suspect Psuedomonas Edges: irregular Bharati wound: ?Intact red hyperpigmented tissue slow to jolynn throughout - Fungal Dermatitis and MASD noted - periwound is improving when photo reviewed No induration noted in the periwound no fluctuance noted Goals of Treatment: ?Off Load Pressure and Dakins packing for autolytic debridement and antimicrobial properties Perianal / Perineal / Coccyx Etiology: MASD - Fungal Dermatitis (Moisture Associated Skin Damage) Wound Bed: Improving Red blanchable tissue with evidence of moisture related tissue loss and advancing satellite lesions noted Drainage / Odor: moist drainage Edges: irregular Goals of Care - Topical antifungal per provider - Nystatin Powder in use Recommendations: 1.Bilateral Sacrum - Off Load Pressure - Cleanse and irrigate with normal saline, pat dry. ?Apply thin layer of Triad to the immediate bharati wound, Pack wound bed with Dakins moist gauze to fill space, cover with foam dressing. Change Daily. 2. Perianal and perineal - Cleanse with PH Balance [place], pat dry. ?Apply thin layer of Antifungal ointment or powder twice a day. ??Apply for 10-14 days past point of clinical clearing per provider order. Consider Triad application after Antifungal to sooth and protect from moisture. 3. Turn and Reposition every 2 hours and as needed for patient comfort - Wedges provided at bedside and in use. 4. Off Load all bony prominences with use of pillows - heels in off loading boots. 5. Monitor for incontinence and moisture control. 6. Provide adequate and supplemental nutrition. 7. Continue low air loss mattress. Reconsult wound care team for wound deterioration or wound changes. --
[2023-04-23 15:19] VITALS: BP 135/64; PULSE 91; RESP 18; TEMP 36.7; O2SAT 94
--- NOTE | 2023-04-23 15:22 | MHC.CM.PN ---
CM AND HOSPITALIST CONTACTED PTS GUARDIAN, VINCENT RAMOS [phone] TO DISCUSS CODE STATUS CHANGE GUARDIAN COMPLETED A MOLST FOR PT OVER THE PHONE MAKING PT DNR/DNI. MOLST NOW ON FILE
--- NOTE | 2023-04-23 16:40 | HO.PM.IMPN ---
Subjective Subjective Date of Service: 04/23/23 Interval History: hypernatremia Review of Systems mild hypernatremia other no new events Physical Exam Vital Signs: Vital Signs: Last Vital Signs Temp 98.1 F 04/23/23 15:19 Pulse 91 04/23/23 15:19 Resp 18 04/23/23 15:19 BP 135/64 04/23/23 15:19 Pulse Ox 94 04/23/23 15:19 O2 Del Method Nasal Cannula 04/23/23 15:19 O2 Flow Rate 2 04/23/23 15:19 FiO2 94 04/16/23 23:50 Oxygen Flow Rate 4 03/25/23 00:10 BMI result Body Mass Index 22.1 General awake alert, but not conversing Neck supple no JVD. CVS regular rate rhythm,[id number] Respiratory :air entry seems dimished ,some gargly sounds, Gastrointestinal abdomen soft, non tender, bowel sounds audible, no guarding or rigidity. Extremities no edema Neuro nonfocal ,speech clear, verbalized minimally. Skin decub ulcer--see picture for decub ulcer Objective Data Active Medications Acetaminophen (Acetaminophen Supp 650 Mg Supp.Rect) 650 mg [place] Q6H PRN PRN Reason: Fever Last Admin: 04/21/23 03:49 Dose: 650 mg Documented By: CED Acetaminophen (Acetaminophen Supp 650 Mg Supp.Rect) 650 mg CO Q6H PRN PRN Reason: Pain, Mild (Pain Scale 1-3) Last Admin: 04/12/23 20:51 Dose: 650 mg Documented By: NITO Atenolol (Atenolol 25 Mg Tablet) 25 mg PO DAILY [facility]; Protocol Last Admin: 04/22/23 11:25 Dose: Not Given Documented By: IDALIA Non-Admin Reason: NPO Atorvastatin Calcium (Atorvastatin Calcium 10 Mg Tablet) 10 mg PO DAILY [facility] Last Admin: 03/26/23 08:44 Dose: 10 mg Documented By: ROBERT Collagenase (Collagenase Clostridium Hist. 30 Gm Tube) 1 appl TOPICAL DAILY [facility]; Protocol Last Admin: 04/23/23 08:43 Dose: 1 appl Documented By: ALICIA Dextrose (Dextrose 50 % 25 Gm/50 Ml Syringe) 25 gm IVPUSH Q15M PRN; Protocol PRN Reason: per Hypoglycemia Standing Ord. Last Admin: 04/06/23 23:22 Dose: 25 gm Glucose (Glucose Gel 15 Gm Gel..Gram.) 15 gm PO Q15M PRN; Protocol PRN Reason: per Hypoglycemia Standing Ord. Guaifenesin (Guaifenesin 200 Mg/10 Ml 10 Ml Liquid) 10 ml PO Q4H PRN PRN Reason: Cough Last Admin: 03/28/23 09:25 Dose: 10 ml Documented By: ROBERT Heparin Sodium (Porcine) (Heparin Sodium,Porcine 5,000 Unit/Ml Vial) 5,000 unit SUBCUT Q8H [facility] Last Admin: 04/23/23 16:31 Dose: 5,000 unit Documented By: ALICIA Hydroxyzine HCl (Hydroxyzine Hcl 25 Mg Tablet) 25 mg PO BEDTIME PRN PRN Reason: Itching Valproic Acid 500 mg/ Dextrose 55 mls @ 55 mls/hr IV Q12H [facility] Last Infusion: 04/23/23 09:45 Dose: Infused Documented By: ALICIA Nutrition (Parenteral) (Parenteral Nutrition) 1,800 mls @ 75 mls/hr IV .Q24H [facility]; Protocol Stop: 04/23/23 20:59 Last Admin: 04/22/23 20:37 Dose: 75 mls/hr Documented By: DEMI Dextrose (D5w) 1,000 mls @ 50 mls/hr IVCONT .Q20H [facility] Last Admin: 04/23/23 11:40 Dose: 50 mls/hr Documented By: ALICIA Nutrition (Parenteral) (Parenteral Nutrition) 1,800 mls @ 75 mls/hr IV .Q24H [facility]; Protocol Stop: 04/24/23 20:59 Insulin Human Lispro (Insulin Lispro 100 Unit/Ml 3 Ml Vial) 0 unit SUBCUT Q6H [facility]; Protocol Last Admin: 04/23/23 11:51 Dose: Not Given Documented By: ALICIA Non-Admin Reason: No Insulin Coverage Levothyroxine Sodium (Levothyroxine Sodium 100 Mcg/5 Ml Vial) 12.5 mcg IVPUSH DAILY@0600 [facility] Last Admin: 04/23/23 05:40 Dose: 12.5 mcg Documented By: DEMI Memantine (Memantine Hcl 5 Mg Tablet) 5 mg PO DAILY [facility] Last Admin: 04/22/23 11:25 Dose: Not Given Documented By: IDALIA Non-Admin Reason: NPO Nystatin (Nystatin Powder 15 Gm Bottle) 1 appl TOPICAL BID [facility]; Protocol Last Admin: 04/23/23 08:43 Dose: 1 appl Documented By: ALICIA Sertraline HCl (Sertraline Hcl 25 Mg Tablet) 25 mg PO DAILY [facility] Last Admin: 04/23/23 08:44 Dose: Not Given Documented By: ALICIA Non-Admin Reason: NPO Sodium Chloride (0.9 % Sodium Chloride Flush 3 Ml Syringe) 3 ml IVFLUSH QSHIFT [facility] Last Admin: 04/23/23 16:31 Dose: Not Given Documented By: ALICIA Non-Admin Reason: IV Running Sodium Hypochlorite (Sodium Hypochlorite 0.25% 473 Ml Solution) 1 appl TOPICAL DAILY [facility] Last Admin: 04/23/23 15:53 Dose: Not Given Documented By: ALICIA Non-Admin Reason: given by wound RN Labs 04/10/23 09:33 04/23/23 06:26 Labs: Laboratory Results - last 24 hr 04/22/23 04/22/23 04/23/23 18:09 23:35 06:26 Anion Gap 15 Estim Creat Clear Calc 58.1 Estimated GFR > 60 POC Glucose 128 H 114 Random Glucose 143 H Calcium 9.8 Phosphorus 4.1 Magnesium 2.8 H Total Bilirubin 0.4 AST 24 ALT 8 Alkaline Phosphatase 38 L Total Protein 8.9 H Albumin 3.6 Triglycerides 194 H 04/23/23 04/23/23 06:45 11:33 Anion Gap Estim Creat Clear Calc Estimated GFR POC Glucose 134 H 110 Random Glucose Calcium Phosphorus Magnesium Total Bilirubin AST ALT Alkaline Phosphatase Total Protein Albumin Triglycerides Assessment and Plan (1) Hypernatremia: Status: Acute Plan 72 year old male with history of cognitive and neurobehavior dysfunction, seizure desorder here with acute hypoxic resp failure, aspiration pneumonitis and Covid: New issues 04/23 Acute hypoxic respiratory failure -possible aspirational pneumonitis having desaturation continue oxygen 04/20 : hypernatremia : possible due to dehydration added d5w ,moniter bmp. 04/10 Fever, tachycardia, low O2.. Sepsis w/u with CXR (negative, UA negative , Blood culture, CBC WNL, lactic acid normal). O2 sat on lower side Concern of aspiration again, added empric Zosyn on 04/10, supplemental O2 as needed 04/12 Blood culture 04/10, 1/2 Bacilus species, likely contamination, stop Vanco 04/12 speech recommens NPO again. Continue TPN Old issues Acute hypoxic respiratory failure due to covid-- hypoxia resolved, on RA 95%, repeat covid if negative, stop isolation Sepsis due to aspiration pneumonia--completed 7 days of Zosyn Metabolic Encephalopathy due to acute illness and underlying cognitive disorder, appear to be at baseline Hypernatremia resolved HypOkalemia--correct in PPN Dysphagiia. He has been on parenteral nutrition IV PPN started on (03/27/23) due dyspahagia and failed multiple swallow evals but did ok with Puree on 04/08. Will stop PPN if able to take in enough calory over the weekend. Guardian would not want a PEG. Speech to reassess tomorrow hypOkalemia : repleted and resolved mild bradycardia : resolved ,atenolol restarted, stable vitals hypothyroidism- tsh elevated ,Free t4-normal, continue levothyroxine iv Pressure (decubitus) ulcer/injury coccyx Stage 2: continue position change, IV PPN and other recommendation per wound nurse, debridment defered by guardian pending court hearing Seizure disorder on IV Depakote until able to take PO atypical depressive disorder/ Neuro Behavioral dysfunction continue home medications patient is resident of [facility] and has a guardian--Spoke to guardian Stephanie Singh [phone] about treatment plan, code status to be reconsider to DNR by court--try to update today 04/03 no answer. Full code, guardian is filling court docuement to have status change to DNR/DNI. Court date was today attended via phone with patient's guardian present : Moslt form filled-DNR DNI and comfort care( joselin/w sneha,case operator ) ,official court document awaiting Quality Stroke Does the patient have a stroke diagnosis?: No VTE Prior VTE?: No VTE Risk Level:: Medical - moderate - high VTE Device Contraindication: Treatment Not Indicated VTE Drug Contraindication: N/A - Med Ordered
[2023-04-23] MEDS: 0.9 % Sodium Chloride Flush 3 ML SYRINGE IVFLUSH (22:12)
[2023-04-23 22:31] VITALS: BP 127/69; PULSE 99; RESP 19; TEMP 36.9; O2SAT 99
[2023-04-24] VITALS (10 sets, daily range): BP systolic 125–143; BP diastolic 68–71; PULSE 100–114; RESP 16–32; TEMP 36.8–38.3; O2SAT 92–95
[2023-04-24 00:51] LABS: Glucose, Whole Blood 78 mg/dL (60-115)
--- NOTE | 2023-04-24 01:04 | PC.NURSE ---
Pt. NPO. IVF of D5W at 50ml/hr infusing as ordered. No PPN infusing as order d/c'd on days. POC at 0045 was 78; report these findings, NPO, IVF, NO PPN to Dr. Atkinson at 01:01. No new orders at this time.
[2023-04-24 03:24] LABS: Glucose, Whole Blood 95 mg/dL (60-115)
[2023-04-24] MEDS: Dextrose 5 % 1,000 ML 50 ML IVCONT (06:49)
[2023-04-24 07:58] LABS: Glucose, Whole Blood 96 mg/dL (60-115)
[2023-04-24] MEDS: 0.9 % Sodium Chloride Flush 3 ML SYRINGE IVFLUSH (10:29)
[2023-04-24] MEDS: Collagenase Clostridium Hist. 30 GM TUBE 1 APPL TOPICAL (10:29)
--- NOTE | 2023-04-24 13:35 | P.PNIM_ITS ---
Subjective Subjective Date of Service: 04/24/23 Interval History: follow up Review of Systems unable to provide much info Physical Exam 2 Vital Signs: Vital Signs: Last Vital Signs Temp 99.2 F 04/24/23 07:51 Pulse 114 H 04/24/23 07:51 Resp 20 04/24/23 12:00 BP 125/68 04/24/23 07:51 Pulse Ox 92 04/24/23 07:51 O2 Del Method Nasal Cannula 04/24/23 07:51 O2 Flow Rate 2 04/24/23 07:51 FiO2 94 04/16/23 23:50 Oxygen Flow Rate 4 03/25/23 00:10 BMI result Body Mass Index 22.1 General awake , but not conversing CVS regular rate rhythm,[id number] Respiratory :air entry seems dimished. Gastrointestinal abdomen soft, non tender, bowel sounds audible. Extremities no edema Neuro nonfocal : awake. Objective Data Active Medications Acetaminophen (Acetaminophen Supp 650 Mg Supp.Rect) 650 mg CA Q6H PRN PRN Reason: Fever Last Admin: 04/21/23 03:49 Dose: 650 mg Documented By: CED Albuterol/Ipratropium (Albuterol/Iprat 2.5/0.5mg 3 Ml Ampul.Neb) 3 ml INHALE Q3H PRN PRN Reason: sob/discomfort Collagenase (Collagenase Clostridium Hist. 30 Gm Tube) 1 appl TOPICAL DAILY [facility]; Protocol Last Admin: 04/24/23 10:29 Dose: 1 appl Documented By: ERIN Dextrose (Dextrose 50 % 25 Gm/50 Ml Syringe) 25 gm IVPUSH Q15M PRN; Protocol PRN Reason: per Hypoglycemia Standing Ord. Last Admin: 04/06/23 23:22 Dose: 25 gm Glucose (Glucose Gel 15 Gm Gel..Gram.) 15 gm PO Q15M PRN; Protocol PRN Reason: per Hypoglycemia Standing Ord. 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 ASSISTANT Morphine Sulfate (Morphine Sulfate 2 Mg/Ml Cartridge) 1 mg IVPUSH Q4H PRN PRN Reason: Discomfort/Shortness of breath Sodium Chloride (0.9 % Sodium Chloride Flush 3 Ml Syringe) 3 ml IVFLUSH QSHIFT [facility] Last Admin: 04/24/23 10:29 Dose: 3 ml Documented By: ERIN Labs 04/10/23 09:33 04/23/23 06:26 Labs: Laboratory Results - last 24 hr 04/24/23 04/24/23 04/24/23 00:46 03:13 07:49 POC Glucose 78 95 96 Assessment and Plan (1) Hypernatremia: Status: Acute (2) Sacral decubitus ulcer, stage IV: Status: Acute Plan 72 year old male with history of cognitive and neurobehavior dysfunction, seizure desorder here with acute hypoxic resp failure, aspiration pneumonitis and Covid: Patient initially admitted for acute hypoxemic respiratory failure secondary to aspiration pneumonitis, also positive for COVID, metabolic encephalopathy,also had dysphagia: Patient was treated with IV antibiotics,steriods , also started TPN: Patient was seen by multiple time with speech and Swallow-recommended to be remain NPO due to dysphagia. Also patient keeps getting recurrent aspiration pneumonitis(04/10) received antibiotic and oxygen therapy again-patient still is require on and off oxygen and has possible microaspiration. In addition patient was treated for multiple electrolytic abnormalities including hypokalemia, hyponatremia. Due to high risk of aspiration considering above or recurrent respiration pneumonitis episodes, impending failure to thrive due to dysphagia, metabolic encephalopathy: Hospitalist team discussed to guardian Stephanie Singh [phone] about treatment plan, code status to be reconsider to DNR by court since palcing peg might not chnage patient quality of life or risk of aspiration. Court date was 04/23/23 :attended via phone with patient's guardian present,allows change in code status dnr/dni/comfort measures. : Moslt form filled-DNR DNI and comfort care( d/w sneha,case filler ) . Quality Stroke Does the patient have a stroke diagnosis?: No VTE Prior VTE?: No VTE Risk Level:: Medical - moderate - high VTE Device Contraindication: Treatment Not Indicated VTE Drug Contraindication: N/A - Med Ordered
[2023-04-24] MEDS: Acetaminophen Supp 650 MG SUPP.RECT PR ×2 (15:21→22:03)
[2023-04-24] MEDS: Morphine Sulfate 2 MG/ML CARTRIDGE 1 MG IVPUSH ×2 (15:21→21:26)
[2023-04-24] MEDS: Scopolamine 1.5 MG PATCH.TD.3 EAR-BEHIND (17:57)
[2023-04-25] VITALS (8 sets, daily range): PULSE 110; RESP 15–32; TEMP 37–39.5; O2SAT 92
[2023-04-25] MEDS: Morphine Sulfate 2 MG/ML CARTRIDGE 1 MG IVPUSH ×3 (01:01→12:30)
[2023-04-25] MEDS: 0.9 % Sodium Chloride Flush 3 ML SYRINGE IVFLUSH ×4 (01:03→21:54)
[2023-04-25] MEDS: Acetaminophen Supp 650 MG SUPP.RECT PR ×2 (04:42→21:11)
[2023-04-25] MEDS: Morphine Sulfate 2 MG/ML CARTRIDGE IVPUSH ×3 (09:23→21:06)
--- NOTE | 2023-04-25 09:54 | MHC.CLN ---
F/U PATIENT WITH STATUS CHANGE TO COMFORT MEASURES ONLY. CURRENTLY NPO AND PPN DISCONTINUED. RD AVAILABLE NEEDED.
--- NOTE | 2023-04-25 13:29 | P.PNIM_ITS ---
Subjective Subjective Date of Service: 04/25/23 Interval History: follow up Review of Systems unable to give info. Physical Exam 2 Vital Signs: Vital Signs: Last Vital Signs Temp 98.8 F 04/25/23 11:24 Pulse 110 H 04/25/23 05:10 Resp 32 H 04/25/23 11:24 BP 125/68 04/24/23 07:51 Pulse Ox 92 04/25/23 05:10 O2 Del Method Nasal Cannula 04/25/23 05:10 O2 Flow Rate 2 04/25/23 05:10 FiO2 94 04/16/23 23:50 Oxygen Flow Rate 4 03/25/23 00:10 BMI result Body Mass Index 22.1 CVS regular rate rhythm,[id number] Respiratory :air entry seems dimished. Gastrointestinal :abdomen soft, bowel sounds audible. Extremities no edema Neuro nonfocal : awake. Objective Data Active Medications Acetaminophen (Acetaminophen Supp 650 Mg Supp.Rect) 650 mg OH Q6H PRN PRN Reason: Fever Last Admin: 04/25/23 04:42 Dose: 650 mg Documented By: ANAIS Albuterol/Ipratropium (Albuterol/Iprat 2.5/0.5mg 3 Ml Ampul.Neb) 3 ml INHALE Q3H PRN PRN Reason: sob/discomfort Collagenase (Collagenase Clostridium Hist. 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 Last Admin: 04/06/23 23:22 Dose: 25 gm Glucose (Glucose Gel 15 Gm Gel..Gram.) 15 gm PO Q15M PRN; Protocol PRN Reason: per Hypoglycemia Standing Ord. Morphine Sulfate (Morphine Sulfate 2 Mg/Ml Cartridge) 2 mg IVPUSH Q2H PRN PRN Reason: Discomfort/Shortness of breath Scopolamine (Scopolamine 1.5 Mg Patch.Td.3) 1.5 mg EAR-BEHIND Q72H HASMUKH Last Admin: 04/24/23 17:57 Dose: 1.5 mg Documented By: ALONFARoxana Sodium Chloride (0.9 % Sodium Chloride Flush 3 Ml Syringe) 3 ml IVFLUSH QSHIFT [facility] Last Admin: 04/25/23 09:23 Dose: 3 ml Documented By: ERIN Labs 04/10/23 09:33 04/23/23 06:26 Assessment and Plan (1) Aspiration into lower respiratory tract: Status: Acute Plan 72 year old male with history of cognitive and neurobehavior dysfunction, seizure desorder here with acute hypoxic resp failure, aspiration pneumonitis and Covid: Patient initially admitted for acute hypoxemic respiratory failure secondary to aspiration pneumonitis, also positive for COVID, metabolic encephalopathy,also had dysphagia: Patient was treated with IV antibiotics,steriods , also started TPN: Patient was seen by multiple time with speech and Swallow-recommended to be remain NPO due to dysphagia. Also patient keeps getting recurrent aspiration pneumonitis(04/10) received antibiotic and oxygen therapy again-patient still is require on and off oxygen and has possible microaspiration. In addition patient was treated for multiple electrolytic abnormalities including hypokalemia, hyponatremia. Due to high risk of aspiration considering above or recurrent respiration pneumonitis episodes, impending failure to thrive due to dysphagia, metabolic encephalopathy: Hospitalist team discussed to guardian Stephanie Singh [phone] about treatment plan, code status to be reconsider to DNR by court since palcing peg might not chnage patient quality of life or risk of aspiration. Court date was 04/23/23 :attended via phone with patient's guardian present,allows change in code status dnr/dni/comfort measures. : Moslt form filled-DNR DNI and comfort care( d/w sneha,casework supervisor ) . Quality Stroke Does the patient have a stroke diagnosis?: No VTE Prior VTE?: No VTE Risk Level:: Medical - moderate - high VTE Device Contraindication: Treatment Not Indicated VTE Drug Contraindication: N/A - Med Ordered
--- NOTE | 2023-04-25 21:16 | PC.NURSE ---
Care assumed 19:15. Pt continues [employer]OOFER. Nursing aid notified this mortgage underwriter pt febrile. Rectal tylenol given for comfort.
--- NOTE | 2023-04-25 22:48 | PM.EVENT ---
Event Note Date of Service: 04/25/23 Event Note: Called to pronounce patient who had Found patient lying supine in bed He is not responsive to both verbal and painful stimuli. Pupils are dilated and not reactive to direct light. No breath sounds or hear sounds auscultated. Patient pronounced at 2245 PM on 04/25/2023 Ps Note: I attempted to reach patients Guardian (Stephanie Singh) but got no answer. I will complete Certificate tonight Primary team to complete Discharge Summary in the morning Time Spent With Patient Time: Total time managing care of this patient today __30__ minutes.
--- NOTE | 2023-04-25 23:31 | PC.NURSE ---
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 No apical HR noted for minute auscultation. No response to pain, no pupillary reaction noted. Covering Dr. Merle Overton notified and to bedside, pronounced patient time of 22:45. Post-mortem care provided. No belongings noted with patient. Midline/IVs removed. NEDS contacted though deferred; case #[id number]. Patient transported to [facility] [place].
--- NOTE | 2023-04-26 10:29 | P.DN_ITS ---
Discharge Sum: Prov Provider Primary care physician: Mauricio Woods MD Admitting clinician: Vel Atkinson Attending physician on admission: Vel Atkinson Consults: 03/25/23 09:09 Consult to Infectious Diseases [place]ine [place] [facility] [place] Reason for consultation: Aspirational pneumonia/covid Has provider been notified: No 03/26/23 11:08 Consult to Nephrology Routine Consulting Provider: Bolivar Mccoy Reason for consultation: Hypernatremia 04/16/23 08:28 Consult to General Surgery Routine Consulting Provider[place] [facility] [place] Reason for consultation: Decub ulcer need debridement Has provider been notified: No 04/23/23 15:01 Consult to Wound Care Routine Reason for consultation: Sacral Wounds Pronouncing clinician: Eduardo Overton Discharge Sum: Diag Contributing Factors (1) Aspiration into lower respiratory tract: Discharge Sum: Summary Date and Time Date of admission: 03/24/23 23:35 Date of : 04/26/23 Summary Details: 72 year old male with history of cognitive and neurobehavior dysfunction, seizure desorder here with acute hypoxic resp failure, aspiration pneumonitis and Covid: Patient initially admitted for acute hypoxemic respiratory failure secondary to aspiration pneumonitis, also positive for COVID, metabolic encephalopathy,also had dysphagia: Patient was treated with IV antibiotics,steriods , also started TPN: Patient was seen by multiple time with speech and Swallow-recommended to be remain NPO due to dysphagia. Also patient keeps getting recurrent aspiration pneumonitis(04/10) received antibiotic and oxygen therapy again-patient still is require on and off oxygen and has possible microaspiration. In addition patient was treated for multiple electrolytic abnormalities including hypokalemia, hyponatremia,also has decubtii. Due to high risk of aspiration considering above or recurrent respiration pneumonitis episodes, impending failure to thrive due to dysphagia, metabolic encephalopathy: Hospitalist team discussed to guardian Stephanie Singh [phone] about treatment plan, code status to be reconsider to DNR by court since palcing peg might not chnage patient quality of life or risk of aspiration. Court date was 04/23/23 :attended via phone with patient's guardian pr saltyent,allows change in code status dnr/dni/comfort measures. : Moslt form filled-DNR DNI and comfort care( d/w sneha,director case ) . Patient passed on 04/25/23 -please see Dr Overton's event note. Additional Data Confirmation of as documented by pronouncing clinician: no pulse and no respirations Family: attempt made (guardian called ) Attending physician: Es Parker MD Was code activated?: No
== END 2023-04-25 23:30 | disposition expired | DRG 871 ==
LOC: HO.ED 21:03 → HO.EDOVER 23:40 → HO.IMC 23:49
PROVIDERS: Hospitalist; Radiology Vascular & Interventional Radiology; Student in an Organized Health Care Education/Training Program; Admitting Provider Internal Medicine; Emergency Provider Emergency Medicine; PCP Family Medicine; Visit Provider Internal Medicine
PROC: 05HC33Z Insertion of Infusion Device into Left Basilic Vein, Percutaneous Approach (ICD-10-PCS; principal; 2023-04-01 07:30)
DX: A41.9 Sepsis, unspecified organism (principal); G93.41 Metabolic encephalopathy; J69.0 Pneumonitis due to inhalation of food and vomit; U07.1 COVID-19; J96.01 Acute respiratory failure with hypoxia; E87.0 Hyperosmolality and hypernatremia; R00.1 Bradycardia, unspecified; R13.10 Dysphagia, unspecified; F32.89 Other specified depressive episodes; E03.9 Hypothyroidism, unspecified; E87.6 Hypokalemia; L89.152 Pressure ulcer of sacral region, stage 2; E86.0 Dehydration; G40.909 Epilepsy, unspecified, not intractable, without status epilepticus; Z87.891 Personal history of nicotine dependence; Z79.890 Hormone replacement therapy; Z79.899 Other long term (current) drug therapy
CPT/HCPCS: 36410; 36415; 71045; 80048; 80053; 80076; 80202; 81001; 82040; 82565; 82947; 83036; 83605; 83690; 83735; 83880; 84100; 84132; 84145; 84295; 84439; 84443; 84478; 84484; 85025; 85027; 85610; 87040; 87205; 87449; 87493; 87507; 87635; 87640; 87641; 87899; 92526; 92610; 92950; 93005; 93971; 99285; C1751; J0696; J1100; J1643; J1940; J2270; J2543; J3370; J3371; P9047

== ENCOUNTER → 2023-03-24 23:35 | Outpatient (BNV) | payer MEDICARE, SELFPAY | PROVIDERS: Admitting Provider Internal Medicine; Emergency Provider Emergency Medicine; PCP Family Medicine; Visit Provider Internal Medicine | DX: T17.800A Unspecified foreign body in other parts of respiratory tract causing asphyxiation, initial encounter (principal) | CPT/HCPCS: 99222 ==

== ENCOUNTER → 2023-03-24 23:35 | Outpatient (BNV) | payer MEDICARE, SELFPAY | PROVIDERS: Admitting Provider Internal Medicine; Emergency Provider Emergency Medicine; PCP Family Medicine; Visit Provider Internal Medicine | DX: E87.0 Hyperosmolality and hypernatremia (principal); L89.154 Pressure ulcer of sacral region, stage 4; T17.800A Unspecified foreign body in other parts of respiratory tract causing asphyxiation, initial encounter | CPT/HCPCS: 99223; 99231; 99232; 99233; 99239; 99499 ==

== ENCOUNTER → 2023-03-24 23:35 | Outpatient (BNV) | payer MEDICARE, SELFPAY | PROVIDERS: Admitting Provider Internal Medicine; Emergency Provider Emergency Medicine; PCP Family Medicine; Visit Provider Surgery | DX: L89.154 Pressure ulcer of sacral region, stage 4 (principal); T17.800A Unspecified foreign body in other parts of respiratory tract causing asphyxiation, initial encounter; G40.909 Epilepsy, unspecified, not intractable, without status epilepticus | CPT/HCPCS: 99222 ==